=== PATIENT | male | born 1930 | race Caucasian/White ===

== ENCOUNTER 2017-04-18 08:54 | Outpatient (RCR) | payer MEDICARE, MEDICAID ==
[~2017-04-18 08:54] MED LIST: ACETAMINOPHEN325 M1 ORAL; AMBIEN10 MG ORAL; DILAUDID 11 MG/1 M1 IJ; DILAUDID 11 MG/1 M1 IV; DILAUDID 11 MG/1 M1 IVP; DILAUDID 11 MG/1 ML IV; DILAUDID 22 MG/1 M1 IV; DILAUDID1 MG/1 ML PO; DILAUDID2 MG IVP; DILAUDID2 MG ORAL; MAXITROL OPTH1 DROP LEFT EYE; MILK OF MA400 MG/51 ORAL; MIRALAX17 G2 ORAL; MIRTAZAPINE45 MG ORAL; OXYCONTIN20 MG ORAL; PROTONIX40 MG ORAL; RESTORIL30 MG ORAL; SYNTHROID100 MCG ORAL; SYNTHROID25 MCG ORAL; TYLENOL650 MG/20. ORAL; VANCOMYCIN1 GM/2502 IVPB; ZOFRAN 4 MG4 MG/2 ML IV
== END 2017-05-04 | disposition home or self-care (01) ==
LOC: WCC 08:54
DX: L98.492 Non-pressure chronic ulcer of skin of other sites with fat layer exposed (principal); L97.812 Non-pressure chronic ulcer of other part of right lower leg with fat layer exposed; L89.893 Pressure ulcer of other site, stage 3; Z89.512 Acquired absence of left leg below knee; Z89.511 Acquired absence of right leg below knee; M86.9 Osteomyelitis, unspecified
CPT/HCPCS: 11042

== ENCOUNTER 2017-05-03 10:00 | Inpatient (IN) | payer MEDICARE, MEDICAID ==
[~2017-05-03] VITALS: Ht 172.7 cm; Wt 74.8 kg
[2017-05-27 09:55] LABS: BASOPHILS % (AUTO) 1.3 % (0.0-2.0); EOSINOPHILS % (AUTO) 2.3 % (0.0-3.0); HEMATOCRIT 35.2 % (42.0-52.0); HEMOGLOBIN 11.8 G/DL (14.2-18.0); MEAN CORPUSCULAR VOLUME 94 FL (80-99); MONOCYTES % (AUTO) 6.7 % (1.0-10.0); NEUTROPHILS % (AUTO) 62.7 % (45.0-75.0); PLATELET COUNT 143 K/UL (150-450); RED BLOOD COUNT 3.74 M/UL (4.70-6.10); RED CELL DISTRIBUTION WIDTH 12.4 % (11.6-14.8); WHITE BLOOD COUNT 5.4 K/UL (4.8-10.8)
[2017-05-27 10:12] LABS: ALANINE AMINOTRANSFERASE 18 U/L (12-78); ALBUMIN 3.1 G/DL (3.4-5.0); ALBUMIN/GLOBULIN RATIO 0.7 (1.0-2.7); ALKALINE PHOSPHATASE 61 U/L (46-116); ANION GAP 6 mmol/L (5-15); ASPARTATE AMINO TRANSFERASE 22 U/L (15-37); BILIRUBIN,TOTAL 0.5 MG/DL (0.2-1.0); BLOOD UREA NITROGEN 16 mg/dL (7-18); CALCIUM 8.9 MG/DL (8.5-10.1); CARBON DIOXIDE 29 MMOL/L (21-32); CHLORIDE 104 MMOL/L (98-107); CREATININE 1.2 MG/DL (0.55-1.30); POTASSIUM 4.2 MMOL/L (3.5-5.1); SODIUM 139 MMOL/L (136-145)
--- NOTE | 2017-05-27 10:14 | Diagnostic Imaging Report ---
Indication: Cough Technique: 2 views of the chest Comparison: 06/18/2016 Findings: Is lungs and pleural spaces are clear. There is a right arm PICC in good position, tip projected at the level of the downstream superior vena cava. The heart size is normal. The aorta is tortuous and ectatic. Impression: No acute process
[2017-05-31] VITALS (10 sets, daily range): BP systolic 104–128; BP diastolic 58–77
[2017-05-31] MEDS ORDERED: Bacitracin 50000 Units Vial ONE (06:28)
[2017-05-31] MEDS ORDERED: Bupivacaine 0.5% Inj 30 ml vial INJ ONE (06:28)
[2017-05-31] MEDS ORDERED: NeoSporin Gu Irrig 1ml Amp IRRIG ONE (06:28)
--- NOTE | 2017-05-31 07:09 | Anethesia Preoperative Eval ---
Anesthesia Pre-op PMH/ROS General Date of Evaluation: May 31, 2017 Anesthesiologist: Sudheer ASA Score: ASA 2 Mallampati Score Class I : Soft palate, uvula, fauces, pillars visible Class II: Soft palate, uvula, fauces visible Class III: Soft palate, base of uvula visible Class IV: Only hard plate visible Mallampati Classification: Class II Surgeon: Gaston Diagnosis: Left stump Surgical Procedure: Left stump revision Anesthesia History: none Family History: no anesthesia problems Allergies: Coded Allergies: No Known Allergies (Unverified , 01/04/17) Medications: see eMAR Past Medical History Cardiovascular: Denies: HTN, CAD, [place], valve dz, arrhythmia, other Pulmonary: Denies: asthma, COPD, KEL, other Gastrointestinal/Genitourinary: Denies: GERD, CRI, ESRD, other Neurologic/Psychiatric: Denies: dementia, CVA, depression/anxiety, TIA, other Endocrine: Reports: hypothyroidism, Denies: DM, steroids, other HEENT: Denies: cataract (L), cataract (R), glaucoma, CABAZON (L), CABAZON (R), other Hematology/Immune: Reports: anemia - chroni, Denies: DVT, bleeding disorder, other Musculoskeletal/Integumentary: Reports: OA, Denies: RA, DJD, DDD, edema, other PSxH Narrative: Bilateral BKA's with multiple revisions Anesthesia Pre-op Phys. Exam Physician Exam see chart Constitutional: NAD, other - difuse bruising throughout Cardiovascular: RRR Respiratory: CTA Airway Exam Mallampati Score: Class II MO: full ROM: full Teeth: missing Anesthesia Pre-op A/P Labs see chart Studies Pre-op Studies: EKG - nsr Risk Assessment & Plan Assessment: ASA II Plan: GA Status Change Before Surgery: No Pre-Antibiotics Drug: Ancef 1g Given Within 1 Hr of Incision: Yes Time Given: 08:00 HAYDEN DAWSON M.D. May 31, 2017 07:09
--- NOTE | 2017-05-31 07:41 | Pre-Procedure Note/Attestation ---
Pre-Procedure Note/Attestation Complete Prior to Procedure Planned Procedure: right Procedure Narrative: revision amputation right leg Indications for Procedure Pre-Operative Diagnosis: right stump Attestation I attest that I discussed the nature of the procedure; its benefits; risks and complications; and alternatives (and the risks and benefits of such alternatives ), prior to the procedure, with the patient (or the patient's legal credit representative). I attest that, if there was a reasonable possibility of needing a blood transfusion, the patient (or the patient's legal credit representative) was given the [facility] standardized written summary, pursuant to the [place] Blood Safety Act ([place] Health and Safety Code # 1645, as amended). I attest that I re-evaluated the patient just prior to the surgery and that there has been no change in the patient's H&P, except as documented below: ASHVIN VASQUES May 31, 2017 07:41
[2017-05-31] MEDS ORDERED: NS Irrig 1000ml ONE (07:45)
[2017-05-31] MEDS ORDERED: Sterile Water Irrig 1000ml IRRIG ONE (07:45)
[2017-05-31] MEDS ORDERED: Midazolam 2mg/2ml Inj ONE (07:45)
[2017-05-31] MEDS ORDERED: Propofol 200mg/20ml IV ONE (07:45)
[2017-05-31] MEDS ORDERED: LR 1000ml ONE (07:45)
[2017-05-31] MEDS ORDERED: Lidocaine 1% MPF 10mg/ml 5ml ONE (07:45)
[2017-05-31] MEDS ORDERED: fentaNYL 100 mcg/2 mL IV ONE (07:45)
[2017-05-31] MEDS ORDERED: LR 1000ml 1,000 ML IVLG SCH (08:12)
[2017-05-31] MEDS ORDERED: Midazolam 2mg/2ml Inj IVP PRN (08:15)
[2017-05-31] MEDS ORDERED: DiphenhydrAMINE 50mg/ml Inj IVP PRN (08:15)
[2017-05-31] MEDS ORDERED: fentaNYL 100 mcg/2 mL IV PRN (08:15)
[2017-05-31] MEDS ORDERED: Hydromorphone 0.5mg/0.5ml inj IVP PRN (08:15)
--- NOTE | 2017-05-31 08:16 | Immediate Post-Op Evaluation ---
Immediate Post-Op Evalulation Immediate Post-Op Evalulation Procedure: Left stump revision Date of Evaluation: May 31, 2017 Time of Evaluation: 09:02 IV Fluids: 700 Blood Products: 0 Estimated Blood Loss: 25 Urinary Output: 0 Blood Pressure Systolic: 119 Blood Pressure Diastolic: 70 Pulse Rate: 87 Respiratory Rate: 16 O2 Sat by Pulse Oximetry: 100 Temperature (Fahrenheit): 98.1 Pain Score (1-10): 0 Nausea: No Vomiting: No Complications 0 Patient Status: awake, reacts, patent, none Hydration Status: adequate Drug: Ance 1g Given Within 1 Hr of Incision: Yes Time Given: 08:00 HAYDEN DAWSON M.D. May 31, 2017 08:16
--- NOTE | 2017-05-31 09:02 | 48 Hour Post Anesthesia Eval ---
Post Anesthesia Evaluation Procedure: Left stump revision Date of Evaluation: May 31, 2017 Time of Evaluation: 09:40 Blood Pressure Systolic: 104 0: 61 Pulse Rate: 72 Respiratory Rate: 20 Temperature (Fahrenheit): 98.3 O2 Sat by Pulse Oximetry: 100 Airway: patent Nausea: No Vomiting: No Pain Intensity: 0 Hydration Status: adequate Cardiopulmonary Status: at baseline Mental Status/LOC: patient returned to baseline Post-Anesthesia Complications: 0 Follow-up care needed: N/A - further care as per primary team HAYDEN DAWSON M.D. May 31, 2017 09:02
[2017-05-31] MEDS ORDERED: HYDROmorphone 2 MG in NS 55ml IVPB PRN (12:00)
[2017-05-31] MEDS: ceFAZolin sod 1 GM in NS 55 ML IV SCH ×2 (15:43→23:46)
--- NOTE | 2017-05-31 17:15 | General Progress Note ---
Assessment/Plan Assessment/Plan s/p stump revision hypothyroid chronic pain BKA PLAN 1. incentive spirometry 2. Lovenox 3. PT evaluation and therapy 4. Hydration 5. Pain management 6. discharge to rehab Subjective Allergies: Coded Allergies: No Known Allergies (Unverified , 01/04/17) Subjective post op no distress pain controlled Objective Last 24 Hour Vital Signs Date Time Temp Pulse Resp B/P (MAP) Pulse Ox O2 Delivery O2 Flow Rate FiO2 05/31/17 16:00 97.9 74 19 113/67 99 Nasal Cannula 3.0 97.9 05/31/17 12:00 97.4 79 20 119/69 99 Nasal Cannula 3.0 97.4 05/31/17 10:30 97.5 73 20 113/64 99 Nasal Cannula 3.0 97.5 05/31/17 10:27 208.9 72 20 100 05/31/17 09:40 98.3 72 20 104/61 100 Nasal Cannula 3.0 98.3 05/31/17 09:25 75 20 105/61 100 Nasal Cannula 3.0 05/31/17 09:07 80 20 109/59 100 Simple Mask 8.0 05/31/17 09:05 85 20 128/58 100 Simple Mask 8.0 05/31/17 09:01 208.6 87 16 100 05/31/17 08:57 98.1 90 20 116/73 100 Simple Mask 8.0 98.1 05/31/17 07:16 98.4 88 20 127/77 96 Room Air 98.4 Height (Feet): 5 Height (Inches): 8.00 Weight (Pounds): 165 Objective WDWN NAD clear breath sounds bilaterally without rhonchi or wheeze [id number] without MRG NABS nontender no HSM no CCE nonfocal stump dressed DINAH KHALIL May 31, 2017 17:15
[2017-05-31] MEDS: Heparin 5000 units/ml inj SUBQ SCH (20:50)
[2017-05-31] MEDS: Dyna-Hex 2% Top Sol 2oz TOPIC SCH (20:50)
[2017-06-01] VITALS: BP 99/56
[2017-06-01 04:00] VITALS: BP 100/62
--- NOTE | 2017-06-01 06:56 | General Progress Note ---
Assessment/Plan Assessment/Plan s/p stump revision hypothyroid chronic pain BKA PLAN 1. incentive spirometry 2. Lovenox 3. PT evaluation and therapy 4. Hydration as needed 5. Pain management controlled 6. discharge to rehab- will plan for am if patient agrees Subjective Allergies: Coded Allergies: No Known Allergies (Unverified , 01/04/17) Subjective post op no distress overnight pain controlled Objective Last 24 Hour Vital Signs Date Time Temp Pulse Resp B/P (MAP) Pulse Ox O2 Delivery O2 Flow Rate FiO2 06/01/17 04:44 97.6 06/01/17 04:14 97.6 06/01/17 04:00 98.2 79 18 100/62 95 Nasal Cannula 3.0 98.2 06/01/17 01:51 97.6 06/01/17 00:00 97.6 80 19 99/56 94 Nasal Cannula 3.0 97.6 05/31/17 23:05 97.9 05/31/17 20:49 97.9 05/31/17 20:00 98.1 18 123/74 96 98.1 05/31/17 16:00 97.9 74 19 113/67 99 Nasal Cannula 3.0 97.9 05/31/17 12:00 97.4 79 20 119/69 99 Nasal Cannula 3.0 97.4 05/31/17 10:30 97.5 73 20 113/64 99 Nasal Cannula 3.0 97.5 05/31/17 10:27 208.9 72 20 100 05/31/17 09:40 98.3 72 20 104/61 100 Nasal Cannula 3.0 98.3 05/31/17 09:25 75 20 105/61 100 Nasal Cannula 3.0 05/31/17 09:07 80 20 109/59 100 Simple Mask 8.0 05/31/17 09:05 85 20 128/58 100 Simple Mask 8.0 05/31/17 09:01 208.6 87 16 100 05/31/17 08:57 98.1 90 20 116/73 100 Simple Mask 8.0 98.1 05/31/17 07:16 98.4 88 20 127/77 96 Room Air 98.4 Intake and Output 05/31/17 06/01/17 19:00 07:00 Intake Total 1155 ml 240 ml Output Total 400 ml 475 ml Balance 755 ml -235 ml Intake Oral 300 ml 240 ml IV Total 855 ml Output Urine Total 375 ml 475 ml Estimated Blood Loss 25 ml Height (Feet): 5 Height (Inches): 8.00 Weight (Pounds): 165 Objective WDWN NAD clear breath sounds bilaterally without rhonchi or wheeze [id number] without MRG NABS nontender no HSM no CCE nonfocal stump dressed DINAH KHALIL Jun 01, 2017 06:56
[2017-06-01] MEDS: ceFAZolin sod 1 GM in NS 55 ML IV SCH (08:31)
--- NOTE | 2017-06-01 08:36 | General Progress Note ---
Assessment/Plan Assessment/Plan (1) B/L BKA (2) B/L stump pain (3) L stump revision (4) Phantom limb pain The patient will be continued on Dilaudid changed to 1.5mg IV Q3H PRN severe pain. We will discontinued the Dilaudid IVPB. The patient was discussed with Dr. Velasquez and Dr. Velasquez concurred. Thank you for the courtesy of this consultation. Subjective Date patient seen: Jun 01, 2017 Time patient seen: 07:15 - am Allergies: Coded Allergies: No Known Allergies (Unverified , 01/04/17) Subjective REVIEW OF SYSTEMS: Denies rash, fever, chills, sweating, dizziness, drowsiness, or change in weight. No shortness of breath or chest pain. No nausea, vomiting, or blood in the stool or urine. No bowel or bladder incontinence. No dysuria. He is complaining of bilateral lower extremity. SUBJECTIVE: Pt is a known patient from prior hospital admissions. He is s/p left stump revision. Started on Dilaudid 1mg IV and Dilaudid 2mg IVP. With minimal pain relief. We were consulted so patient would have adequate pain relief while here in the hospital. Objective Last 24 Hour Vital Signs Date Time Temp Pulse Resp B/P (MAP) Pulse Ox O2 Delivery O2 Flow Rate FiO2 06/01/17 07:27 97.6 06/01/17 06:57 97.6 06/01/17 04:14 97.6 06/01/17 04:00 98.2 79 18 100/62 95 Nasal Cannula 3.0 98.2 06/01/17 01:51 97.6 06/01/17 00:00 97.6 80 19 99/56 94 Nasal Cannula 3.0 97.6 05/31/17 23:05 97.9 05/31/17 20:49 97.9 05/31/17 20:00 98.1 18 123/74 96 98.1 05/31/17 16:00 97.9 74 19 113/67 99 Nasal Cannula 3.0 97.9 05/31/17 12:00 97.4 79 20 119/69 99 Nasal Cannula 3.0 97.4 05/31/17 10:30 97.5 73 20 113/64 99 Nasal Cannula 3.0 97.5 05/31/17 10:27 208.9 72 20 100 05/31/17 09:40 98.3 72 20 104/61 100 Nasal Cannula 3.0 98.3 05/31/17 09:25 75 20 105/61 100 Nasal Cannula 3.0 05/31/17 09:07 80 20 109/59 100 Simple Mask 8.0 05/31/17 09:05 85 20 128/58 100 Simple Mask 8.0 05/31/17 09:01 208.6 87 16 100 05/31/17 08:57 98.1 90 20 116/73 100 Simple Mask 8.0 98.1 Intake and Output 05/31/17 06/01/17 19:00 07:00 Intake Total 1155 ml 240 ml Output Total 400 ml 475 ml Balance 755 ml -235 ml Intake Oral 300 ml 240 ml IV Total 855 ml Output Urine Total 375 ml 475 ml Estimated Blood Loss 25 ml Height (Feet): 5 Height (Inches): 8.00 Weight (Pounds): 165 Objective GENERAL: Alert, awake, and oriented x3. HEENT: PERRLA. NECK: Range of motion is full in all directions. No tenderness. No adenopathy. LUNGS: Clear. HEART: Regular. ABDOMEN: Benign. BACK: Range of motion is full on flexion and extension with no tenderness to paraspinous and trapezius muscles. EXTREMITIES: Bilateral [id number] amputation noted. JAMAL SHAW Jun 01, 2017 08:35
[2017-06-01 08:57] VITALS: BP 107/58
[2017-06-01] MEDS: Heparin 5000 units/ml inj SUBQ SCH ×2 (08:57→21:00)
[2017-06-01 12:00] VITALS: BP 111/62
[2017-06-01 16:15] VITALS: BP 122/75
[2017-06-01 20:07] VITALS: BP 107/58
[2017-06-01] MEDS: Dyna-Hex 2% Top Sol 2oz TOPIC SCH (21:58)
[2017-06-02 00:13] VITALS: BP 105/61
[2017-06-02 04:46] VITALS: BP 120/63
--- NOTE | 2017-06-02 05:59 | General Progress Note ---
Assessment/Plan Assessment/Plan s/p stump revision hypothyroid chronic pain BKA PLAN 1. incentive spirometry 2. Lovenox 3. PT evaluation and therapy 4. Hydration as needed 5. Pain management controlled 6. discharge to rehab- today if bed available Subjective Allergies: Coded Allergies: No Known Allergies (Unverified , 01/04/17) Subjective post op no distress overnight pain controlled by pain management Objective Last 24 Hour Vital Signs Date Time Temp Pulse Resp B/P (MAP) Pulse Ox O2 Delivery O2 Flow Rate FiO2 06/02/17 04:46 98.9 80 19 120/63 94 98.9 06/02/17 04:02 98.7 06/02/17 03:32 98.7 06/02/17 00:13 98.7 85 18 105/61 95 98.7 06/01/17 20:07 98.9 82 20 107/58 95 98.9 06/01/17 16:15 98.2 83 18 122/75 98 Room Air 98.2 06/01/17 12:00 98.4 85 20 111/62 94 98.4 06/01/17 08:57 98.2 87 20 107/58 98 Room Air 98.2 06/01/17 07:27 97.6 06/01/17 06:57 97.6 Intake and Output 06/01/17 06/02/17 19:00 07:00 Intake Total 360 ml 360 ml Output Total 1125 ml Balance -765 ml 360 ml Intake Oral 360 ml 360 ml Output Urine Total 1125 ml # Voids 4 Height (Feet): 5 Height (Inches): 8.00 Weight (Pounds): 165 Objective WDWN NAD clear breath sounds bilaterally without rhonchi or wheeze [id number] without MRG NABS nontender no HSM no CCE nonfocal stump dressed DINAH KHALIL Jun 02, 2017 05:59
[2017-06-02 07:04] LABS: BASOPHILS % (AUTO) 0.9 % (0.0-2.0); EOSINOPHILS % (AUTO) 5.9 % (0.0-3.0); HEMATOCRIT 33.1 % (42.0-52.0); HEMOGLOBIN 11.5 G/DL (14.2-18.0); LYMPHOCYTES % (AUTO) 21.2 % (20.0-45.0); MEAN CORPUSCULAR VOLUME 94 FL (80-99); MONOCYTES % (AUTO) 8.7 % (1.0-10.0); NEUTROPHILS % (AUTO) 63.3 % (45.0-75.0); PLATELET COUNT 115 K/UL (150-450); RED BLOOD COUNT 3.54 M/UL (4.70-6.10); RED CELL DISTRIBUTION WIDTH 12.6 % (11.6-14.8); WHITE BLOOD COUNT 6.6 K/UL (4.8-10.8)
[2017-06-02 08:00] VITALS: BP 103/58
[2017-06-02 08:21] LABS: ANION GAP 8 mmol/L (5-15); BLOOD UREA NITROGEN 19 mg/dL (7-18); CALCIUM 8.7 MG/DL (8.5-10.1); CARBON DIOXIDE 27 MMOL/L (21-32); CHLORIDE 102 MMOL/L (98-107); CREATININE 1.1 MG/DL (0.55-1.30); POTASSIUM 4.3 MMOL/L (3.5-5.1); SODIUM 137 MMOL/L (136-145)
[2017-06-02] MEDS: Heparin 5000 units/ml inj SUBQ SCH ×2 (09:00→21:00)
[2017-06-02 12:00] VITALS: BP 115/64
[2017-06-02 16:00] VITALS: BP 109/73
[2017-06-02 20:00] VITALS: BP 108/61
[2017-06-02] MEDS: Dyna-Hex 2% Top Sol 2oz TOPIC SCH (21:38)
[2017-06-03 00:05] VITALS: BP 127/71
[2017-06-03 04:15] VITALS: BP 126/74
[2017-06-03 06:54] LABS: BASOPHILS % (AUTO) 0.9 % (0.0-2.0); HEMATOCRIT 32.5 % (42.0-52.0); LYMPHOCYTES % (AUTO) 30.6 % (20.0-45.0); MEAN CORPUSCULAR VOLUME 93 FL (80-99); MONOCYTES % (AUTO) 10.3 % (1.0-10.0); NEUTROPHILS % (AUTO) 50.2 % (45.0-75.0); PLATELET COUNT 107 K/UL (150-450); RED BLOOD COUNT 3.48 M/UL (4.70-6.10); RED CELL DISTRIBUTION WIDTH 12.2 % (11.6-14.8); WHITE BLOOD COUNT 5.1 K/UL (4.8-10.8)
[2017-06-03 07:33] LABS: ANION GAP 8 mmol/L (5-15); BLOOD UREA NITROGEN 21 mg/dL (7-18); CALCIUM 8.7 MG/DL (8.5-10.1); CARBON DIOXIDE 28 MMOL/L (21-32); CHLORIDE 102 MMOL/L (98-107); SODIUM 138 MMOL/L (136-145)
[2017-06-03 08:00] VITALS: BP 106/61
[2017-06-03] MEDS: Heparin 5000 units/ml inj SUBQ SCH (09:00)
--- NOTE | 2017-06-03 09:13 | General Progress Note ---
Assessment/Plan Assessment/Plan (1) B/L BKA (2) B/L stump pain (3) L stump revision (4) Phantom limb pain The patient will be continued on Dilaudid. The patient was discussed with Dr. Velasquez and Dr. Velasquez concurred. Subjective Date patient seen: Jun 03, 2017 Time patient seen: 08:00 - am Allergies: Coded Allergies: No Known Allergies (Unverified , 01/04/17) Subjective REVIEW OF SYSTEMS: Denies rash, fever, chills, sweating, dizziness, drowsiness, or change in weight. No shortness of breath or chest pain. No nausea, vomiting, or blood in the stool or urine. No bowel or bladder incontinence. No dysuria. He is complaining of bilateral lower extremity. SUBJECTIVE: Pt has been comfortable and is tolerating the pain well on the Dilaudid. He has no new complaints. Objective Last 24 Hour Vital Signs Date Time Temp Pulse Resp B/P (MAP) Pulse Ox O2 Delivery O2 Flow Rate FiO2 06/03/17 08:00 98.5 73 20 106/61 93 98.5 06/03/17 04:15 96.4 74 19 126/74 95 96.4 06/03/17 00:05 97.6 79 19 127/71 97.6 06/02/17 20:00 97.9 79 18 108/61 97.9 06/02/17 16:00 97.7 81 19 109/73 94 97.7 06/02/17 16:00 Room Air 06/02/17 12:00 Room Air 06/02/17 12:00 97.9 84 18 115/64 99 97.9 Intake and Output 06/02/17 06/03/17 19:00 07:00 Intake Total 480 ml 48 ml Balance 480 ml 48 ml Intake Oral 480 ml 48 ml # Voids 2 2 Laboratory Tests 06/03/17 05:12: White Blood Count 5.1, Red Blood Count 3.48L, Hemoglobin 11.0L, Hematocrit 32.5L , Mean Corpuscular Volume 93, Mean Corpuscular Hemoglobin 31.5H, Mean Corpuscular Hemoglobin Concent 33.8, Red Cell Distribution Width 12.2, Platelet Count 107L, Mean Platelet Volume 8.0, Neutrophils (%) (Auto) 50.2, Lymphocytes ( %) (Auto) 30.6, Monocytes (%) (Auto) 10.3H, Eosinophils (%) (Auto) 8.0H, Basophils (%) (Auto) 0.9, Sodium Level 138, Potassium Level 4.0, Chloride Level 102, Carbon Dioxide Level 28, Anion Gap 8, Blood Urea Nitrogen 21H, Creatinine 1.0, Estimat Glomerular Filtration Rate , Glucose Level 85, Calcium Level 8.7 Height (Feet): 5 Height (Inches): 8.00 Weight (Pounds): 165 Objective GENERAL: Alert, awake, and oriented x3. HEENT: PERRLA. NECK: Range of motion is full in all directions. No tenderness. No adenopathy. LUNGS: Clear. HEART: Regular. ABDOMEN: Benign. BACK: Range of motion is full on flexion and extension with no tenderness to paraspinous and trapezius muscles. EXTREMITIES: Bilateral [id number] amputation noted. JAMAL SHAW Jun 03, 2017 09:13
[2017-06-03 12:00] VITALS: BP 119/72
--- NOTE | 2017-06-03 12:38 | General Progress Note ---
Assessment/Plan Assessment/Plan s/p stump revision hypothyroid chronic pain BKA PLAN 1. incentive spirometry 2. DVT prophylaxis 3. PT evaluation and therapy 4. Hydration as needed 5. Pain management controlled 6. discharge to rehab- today Subjective Allergies: Coded Allergies: No Known Allergies (Unverified , 01/04/17) Subjective accepted to rehab no distress overnight and stable for dc pain controlled by pain management Objective Last 24 Hour Vital Signs Date Time Temp Pulse Resp B/P (MAP) Pulse Ox O2 Delivery O2 Flow Rate FiO2 06/03/17 08:00 98.5 73 20 106/61 93 98.5 06/03/17 04:15 96.4 74 19 126/74 95 96.4 06/03/17 00:05 97.6 79 19 127/71 97.6 06/02/17 20:00 97.9 79 18 108/61 97.9 06/02/17 16:00 97.7 81 19 109/73 94 97.7 06/02/17 16:00 Room Air Intake and Output 06/02/17 06/03/17 19:00 07:00 Intake Total 480 ml 48 ml Balance 480 ml 48 ml Intake Oral 480 ml 48 ml # Voids 2 2 Laboratory Tests 06/03/17 05:12: White Blood Count 5.1, Red Blood Count 3.48L, Hemoglobin 11.0L, Hematocrit 32.5L , Mean Corpuscular Volume 93, Mean Corpuscular Hemoglobin 31.5H, Mean Corpuscular Hemoglobin Concent 33.8, Red Cell Distribution Width 12.2, Platelet Count 107L, Mean Platelet Volume 8.0, Neutrophils (%) (Auto) 50.2, Lymphocytes ( %) (Auto) 30.6, Monocytes (%) (Auto) 10.3H, Eosinophils (%) (Auto) 8.0H, Basophils (%) (Auto) 0.9, Sodium Level 138, Potassium Level 4.0, Chloride Level 102, Carbon Dioxide Level 28, Anion Gap 8, Blood Urea Nitrogen 21H, Creatinine 1.0, Estimat Glomerular Filtration Rate , Glucose Level 85, Calcium Level 8.7 Height (Feet): 5 Height (Inches): 8.00 Weight (Pounds): 165 Objective WDWN NAD clear breath sounds bilaterally without rhonchi or wheeze [id number] without MRG NABS nontender no HSM no CCE nonfocal stump dressed DINAH KHALIL Jun 03, 2017 12:38
[2017-06-03] MEDS ORDERED: HEPARIN SO5000 UNIT2 SUBQ (12:42)
[2017-06-03] MEDS ORDERED: HYDROMORPHO2 MG/1 M5 IVP (12:42)
[2017-06-03] MEDS ORDERED: HIBICLENS118 ML TP (12:43)
[2017-06-03 16:00] VITALS: BP 106/58
[2017-06-03] MEDS ORDERED: Tubing IV Secondary IV ONE (19:05)
[2017-06-03] MEDS ORDERED: NS 275ml ONE (19:05)
--- NOTE | 2017-06-06 12:32 | Discharge Summary ---
Discharge Summary Hospital Course Date of Admission May 31, 2017 at 05:48 Date of Discharge Jun 03, 2017 at 19:06 Admitting Diagnosis bilateral stump pain, Reason for Hospitalization: admitted for elective surgery HPI Eusebio Cheung is a 87 year old male, with bilateral BKA and bilateral stump pain, was admitted on May 31, 2017 at 05:48 for Left Stump revision Consultations dr Gallegos- IM dr Velasquez -pain specialist Procedures s/p 05/31/[address] Feldman. revision of left stump Hospital Course s/p surgery pain management pain specialist followed dressing intact IS at the Bedside, taught and encouraged to use DVT prophayxlis initially IV hydration until able to tolerate diet, a/emetic prn bowel regimen PT/OT Levothyroxine continued tolerated diet, pain controlled, stable for dc to acute rehab hospital FINAL DIAGNOSIS bilateral BKA bilateral stump lester s/p left stump revision hypothyroidism Discharge Medications Continued Medications: Chlorhexidine Gluconate* (Hibiclens*) 118 Ml Liquid 118 ML TP DAILY, ML Heparin Sod (Porcine) (Heparin Sodium*) 5 000/1 Ml Vial 5000 UNITS SUBQ EVERY 12 HOURS, VIAL Hydromorphone Hcl/Pf (Hydromorphone 2 Mg/Ml Syringe*) 2 Mg/1 Ml Disp.syrin 1.5 MG IVP Q3HR PRN for Severe Pain (Pain Scale 7-10), EA 0 Refills Levothyroxine Sodium* (Synthroid*) 100 Mcg Tablet 100 MCG ORAL DAILY, TAB Take in the morning on an empty stomach, at least 30 minutes before food. Mirtazapine* (Remeron*) 45 Mg Tablet 45 MG ORAL BEDTIME, TAB Temazepam (Restoril*) 30 Mg Capsule 30 MG ORAL BEDTIME, CAP 0 Refills Discharge Condition Upon Discharge: stable Discharge Disposition Patient was discharged to [facility] Discharge Diagnoses: Discharge Instructions Discharge Instructions Special Instructions I have been assigned to complete a D/C Summary on this account. I was not involved in the patient management Dinah Alvarez NP ([place]anchtein) Jun 06, 2017 12:32
--- NOTE | 2017-06-09 12:30 | Operative Note - Dictated ---
DATE OF OPERATION: 06/01/2017 PREOPERATIVE DIAGNOSIS: Painful left stump secondary to failed surgeries. POSTOPERATIVE DIAGNOSIS: Painful left stump secondary to failed surgeries from Dr. Roldan. PROCEDURE: Revision of left stump amputation with re-amputation. SURGEON: Enrique Feldman M.D. HAND PACKER/PACKAGER: Unknown. 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 PREOPERATIVE NOTE: This is a pleasant gentleman, who has had multiple operations recently by Dr. Roldan, who has failed walking on his stump. I have explained to him the surgery and the risks being failure of the surgery. The patient agreed and consents were obtained. I also explained to him the risks of being infection, bleeding, anesthetic risk, and nerve or tendon damage. OPERATIVE NOTE: Under the benefit of endotracheal intubation and general anesthetic, the patient's knee was prepped and draped in the appropriate manner. An incision was made overlying the same incision and incised through subcutaneous tissue down through soft tissue. I then took a saw and cleaned up the bone flaps taking the off the bone using a rasp to make it nice and smooth. I then did various soft tissue coverage only removing approximately less than 1 cm of bone. I was covering the bone nicely. I was very pleased. I closed the skin only with 2-0 Vicryl and the skin with barbara. The patient went to the recovery room in stable condition. Enrique Feldman M.D. DR: URI JOB#: [id number] CC:
== END 2017-06-03 19:06 | disposition short-term general hospital (02) | DRG 42 ==
LOC: SDSOVERFLO 05-31 05:48 → 3E 05-31 10:15 → 4W 06-01 11:30
PROC: 0Y6G0ZZ Detachment at Left Knee Region, Open Approach (ICD-10-PCS; principal; 2017-05-31 07:30)
DX: G54.6 Phantom limb syndrome with pain (principal); T87.89 Other complications of amputation stump; M25.562 Pain in left knee; E03.9 Hypothyroidism, unspecified; Z89.512 Acquired absence of left leg below knee; Z89.511 Acquired absence of right leg below knee; G89.29 Other chronic pain
CPT/HCPCS: 36415; 71046; 80048; 80053; 85025; 85610; 85730; 87081; 94003; 94150; J2250

== ENCOUNTER 2017-05-16 09:01 | Outpatient (RCR) | payer MEDICARE, MEDICAID ==
[~2017-05-16] VITALS: Ht 167.6 cm; Wt 74.8 kg
== END 2017-06-01 | disposition home or self-care (01) ==
LOC: WCC 09:01
DX: L89.893 Pressure ulcer of other site, stage 3 (principal); S41.102S Unspecified open wound of left upper arm, sequela; L98.492 Non-pressure chronic ulcer of skin of other sites with fat layer exposed; L97.812 Non-pressure chronic ulcer of other part of right lower leg with fat layer exposed; Z89.511 Acquired absence of right leg below knee; Z89.512 Acquired absence of left leg below knee; X58.XXXS Exposure to other specified factors, sequela
CPT/HCPCS: 11042; G0463

== ENCOUNTER 2017-05-24 10:04 | Outpatient (CLI) | payer MEDICARE, MEDICAID ==
[~2017-05-24] VITALS: Ht 165.1 cm; Wt 74.8 kg
[2017-05-24] MEDS ORDERED: Lidocaine 1% Plain 30 ml INJ ONE (11:00)
[2017-05-24] MEDS ORDERED: Heparin 2000 units/Ns 1000ml IV ONE (11:00)
--- NOTE | 2017-05-24 11:59 | Diagnostic Imaging Report ---
Indications: Needs long-term IV access Technique: Ultrasound confirms patent compressible right basilic vein. Total sterile technique, including sterile probe cover and sterile gel, hat, mask,, sterile gown, large sterile drape, and preparation with 2% chlorhexidine utilized. Local anesthesia with 1% lidocaine. Under real-time ultrasound guidance, puncture basilic vein using 21-gauge needle, documented and archived, passage 0.018 guidewire under direct fluoroscopy,, requiring some manipulation with [facility], which was used to determine appropriate catheter length, exchange for 5 Czech peel-away sheath. 5 Czech Bard dual-lumen power PICC cut to 40 cm. It was inserted through the peel-away sheath. Peel-away sheath and guidewire removed. Catheter fixed to the skin. Both catheter ports aspirated and flushed. Patient tolerated procedure well, without immediate complication. Digital radiograph documents satisfactory catheter tip position, at the cavoatrial junction. Total fluoroscopy time 1.7 minutes. Total dose area product 63 dGycm2 Impression: Successful placement of right arm PICC under sonographic and fluoroscopic guidance, as described above.
== END 2017-05-24 12:04 | disposition home or self-care (01) ==
LOC: RAD 10:04
DX: Z79.899 Other long term (current) drug therapy (principal)
CPT/HCPCS: 36569; 76937; J1644; J2001

== ENCOUNTER 2017-11-16 13:30 | Inpatient (IN) | payer MEDICARE, MEDICAID ==
[~2017-11-16] VITALS: Ht 167.6 cm; Wt 74.8 kg
[~2017-11-16 13:30] MED LIST changes: +HEPARIN SO5000 UNIT2 SUBQ; +HIBICLENS118 ML TP; +HYDROMORPHO2 MG/1 M5 IVP
[2017-12-20 12:07] LABS: BASOPHILS % (AUTO) 1.2 % (0.0-2.0); EOSINOPHILS % (AUTO) 2.5 % (0.0-3.0); HEMATOCRIT 36.8 % (42.0-52.0); HEMOGLOBIN 12.3 G/DL (14.2-18.0); LYMPHOCYTES % (AUTO) 33.4 % (20.0-45.0); MEAN CORPUSCULAR VOLUME 91 FL (80-99); MONOCYTES % (AUTO) 9.3 % (1.0-10.0); NEUTROPHILS % (AUTO) 53.6 % (45.0-75.0); PLATELET COUNT 139 K/UL (150-450); RED BLOOD COUNT 4.04 M/UL (4.70-6.10); RED CELL DISTRIBUTION WIDTH 12.1 % (11.6-14.8); WHITE BLOOD COUNT 5.4 K/UL (4.8-10.8)
[2017-12-20 12:13] LABS: ANION GAP 9 mmol/L (5-15); BLOOD UREA NITROGEN 21 mg/dL (7-18); CALCIUM 9.1 MG/DL (8.5-10.1); CARBON DIOXIDE 26 MMOL/L (21-32); CHLORIDE 105 MMOL/L (98-107); CREATININE 1.2 MG/DL (0.55-1.30); POTASSIUM 4.2 MMOL/L (3.5-5.1); SODIUM 139 MMOL/L (136-145)
[2017-12-20 12:17] LABS: ALANINE AMINOTRANSFERASE 23 U/L (12-78); ALBUMIN 3.1 G/DL (3.4-5.0); ALBUMIN/GLOBULIN RATIO 0.7 (1.0-2.7); ALKALINE PHOSPHATASE 67 U/L (46-116); ASPARTATE AMINO TRANSFERASE 27 U/L (15-37); BILIRUBIN,TOTAL 0.6 MG/DL (0.2-1.0)
[2017-12-21] VITALS (12 sets, daily range): BP systolic 103–132; BP diastolic 51–78
[2017-12-21 06:52] LABS: APPEARANCE,URINE CLEAR; BILIRUBIN, URINE NEGATIVE (NEGATIVE); GLUCOSE, URINE (UA) NEGATIVE (NEGATIVE); KETONES,URINE 1+ (NEGATIVE); LEUKOCYTE ESTERASE ,URINE 3+ (NEGATIVE); NITRITE,URINE NEGATIVE (NEGATIVE); PH,URINE 5 (4.5-8.0); PROTEIN,URINE 2+ (NEGATIVE); UROBILINOGEN,URINE NORMAL MG/DL (0.0-1.0)
[2017-12-21] MEDS ORDERED: Midazolam 2mg/2ml Inj ONE (07:04)
[2017-12-21] MEDS ORDERED: fentaNYL 100 mcg/2 mL IV ONE (07:04)
[2017-12-21] MEDS ORDERED: Bacitracin 50000 Units Vial ONE (07:05)
[2017-12-21] MEDS ORDERED: Bupivacaine 0.5% Inj 30 ml vial INJ ONE (07:05)
[2017-12-21] MEDS ORDERED: NeoSporin Gu Irrig 1ml Amp IRRIG ONE (07:05)
[2017-12-21] MEDS ORDERED: Lidocaine 1% MPF 10mg/ml 5ml ONE (07:07)
[2017-12-21] MEDS ORDERED: Propofol 200mg/20ml IV ONE (07:07)
[2017-12-21 07:12] LABS: COLOR,URINE YELLOW
[2017-12-21] MEDS ORDERED: LR 1000ml 1,000 ML IVLG SCH (07:53)
--- NOTE | 2017-12-21 07:53 | Anethesia Preoperative Eval ---
Anesthesia Pre-op PMH/ROS General Date of Evaluation: Dec 21, 2017 Time of Evaluation: 07:15 Anesthesiologist: Kandy ASA Score: ASA 2 Mallampati Score Class I : Soft palate, uvula, fauces, pillars visible Class II: Soft palate, uvula, fauces visible Class III: Soft palate, base of uvula visible Class IV: Only hard plate visible Mallampati Classification: Class II Surgeon: Gaston Diagnosis: R leg pain Surgical Procedure: Revision of R BKA stump Anesthesia History: none Family History: no anesthesia problems Allergies: Coded Allergies: No Known Allergies (Unverified , 01/04/17) Medications: see eMAR Past Medical History Cardiovascular: Denies: HTN, CAD, NH, valve dz, arrhythmia, other Pulmonary: Denies: asthma, COPD, KEL, other Gastrointestinal/Genitourinary: Reports: GERD - mild; Denies: CRI, ESRD, other Neurologic/Psychiatric: Reports: other - chronic pain; Denies: dementia, CVA, depression/anxiety, TIA Endocrine: Reports: hypothyroidism; Denies: DM, steroids, other HEENT: Reports: other - bilateral eyelids scars; Denies: cataract (L), cataract (R), glaucoma, NIKOLAI (L), NIKOLAI (R) Hematology/Immune: Reports: anemia - mild; Denies: DVT, bleeding disorder, other Musculoskeletal/Integumentary: Reports: DJD, other - s/p bilateral BKA PMH Narrative: as above PSxH Narrative: Bilateral BKA and revisions Anesthesia Pre-op Phys. Exam Physician Exam Last Vital Signs Date Time Temp Pulse Resp B/P (MAP) Pulse Ox O2 Delivery O2 Flow Rate FiO2 12/21/17 07:01 Room Air 12/21/17 06:49 98.6 91 18 132/77 (95) 96 98.6 Constitutional: NAD Neurologic: CN 2-12 intact Cardiovascular: RRR Respiratory: CTA Gastrointestinal: S/NT/ND Airway Exam Mallampati Score: Class III MO: limited Neck: stiff ROM: limited Teeth: missing Dentures: no upper, no lower Anesthesia Pre-op A/P Labs Hematology Test 12/20/17 11:40 White Blood Count 5.4 K/UL (4.8-10.8) Red Blood Count 4.04 M/UL (4.70-6.10) L Hemoglobin 12.3 G/DL (14.2-18.0) L Hematocrit 36.8 % (42.0-52.0) L Mean Corpuscular Volume 91 FL (80-99) Mean Corpuscular Hemoglobin 30.3 PG (27.0-31.0) Mean Corpuscular Hemoglobin Concent 33.3 G/DL (32.0-36.0) Red Cell Distribution Width 12.1 % (11.6-14.8) Platelet Count 139 K/UL (150-450) L Mean Platelet Volume 8.0 FL (6.5-10.1) Neutrophils (%) (Auto) 53.6 % (45.0-75.0) Lymphocytes (%) (Auto) 33.4 % (20.0-45.0) Monocytes (%) (Auto) 9.3 % (1.0-10.0) Eosinophils (%) (Auto) 2.5 % (0.0-3.0) Basophils (%) (Auto) 1.2 % (0.0-2.0) Coagulation Test 12/20/17 11:40 Prothrombin Time 10.7 SEC (9.30-11.50) Prothromb Time International Ratio 1.0 (0.9-1.1) Activated Partial Thromboplast Time 26 SEC (23-33) Chemistry Test 12/20/17 11:40 Sodium Level 139 MMOL/L (136-145) Potassium Level 4.2 MMOL/L (3.5-5.1) Chloride Level 105 MMOL/L (98-107) Carbon Dioxide Level 26 MMOL/L (21-32) Anion Gap 9 mmol/L (5-15) Blood Urea Nitrogen 21 mg/dL (7-18) H Creatinine 1.2 MG/DL (0.55-1.30) Estimat Glomerular Filtration Rate mL/min (>60) Glucose Level 109 MG/DL (74-106) H Calcium Level 9.1 MG/DL (8.5-10.1) Total Bilirubin 0.6 MG/DL (0.2-1.0) Aspartate Amino Transf (AST/SGOT) 27 U/L (15-37) Alanine Aminotransferase (ALT/SGPT) 23 U/L (12-78) Alkaline Phosphatase 67 U/L (46-116) Total Protein 7.6 G/DL (6.4-8.2) Albumin 3.1 G/DL (3.4-5.0) L Globulin 4.5 g/dL Albumin/Globulin Ratio 0.7 (1.0-2.7) L Studies Pre-op Studies: EKG - SR Risk Assessment & Plan Assessment: ASA 2 Plan: GA with LMA Status Change Before Surgery: No Pre-Antibiotics Drug: Ancef 1gr. Given Within 1 Hr of Incision: Yes Time Given: 08:02 Morteza Gaitan MD Dec 21, 2017 07:53
--- NOTE | 2017-12-21 07:59 | Pre-Procedure Note/Attestation ---
Pre-Procedure Note/Attestation Complete Prior to Procedure Planned Procedure: right Procedure Narrative: revision amputation of right stump Attestation I attest that I discussed the nature of the procedure; its benefits; risks and complications; and alternatives (and the risks and benefits of such alternatives ), prior to the procedure, with the patient (or the patient's legal dairy supplies sales representative). I attest that, if there was a reasonable possibility of needing a blood transfusion, the patient (or the patient's legal dairy supplies sales representative) was given the [facility] Health Services standardized written summary, pursuant to the Nghia Dominga Blood Safety Act ([place] Health and Safety Code # 1645, as amended). I attest that I re-evaluated the patient just prior to the surgery and that there has been no change in the patient's H&P, except as documented below: Enrique Feldman MD Dec 21, 2017 07:59
[2017-12-21] MEDS ORDERED: fentaNYL 100 mcg/2 mL IV PRN (08:00)
[2017-12-21] MEDS ORDERED: LR 1000ml ONE (08:00)
[2017-12-21] MEDS ORDERED: NS Irrig 1000ml ONE (08:00)
[2017-12-21] MEDS ORDERED: DiphenhydrAMINE 50mg/ml Inj IVP PRN (08:00)
[2017-12-21] MEDS ORDERED: Sterile Water Irrig 1000ml IRRIG ONE (08:00)
--- NOTE | 2017-12-21 09:11 | Immediate Post-Op Evaluation ---
Immediate Post-Op Evalulation Immediate Post-Op Evalulation Procedure: Revision of R RAQUEL stamp Date of Evaluation: Dec 21, 2017 Time of Evaluation: 09:10 IV Fluids: 600 Blood Products: none Estimated Blood Loss: min Urinary Output: none Blood Pressure Systolic: 128 Blood Pressure Diastolic: 78 Pulse Rate: 89 Respiratory Rate: 20 O2 Sat by Pulse Oximetry: 98 Temperature (Fahrenheit): 98.2 Pain Score (1-10): 1 Nausea: No Vomiting: No Complications none Patient Status: reacts, patent, none Hydration Status: adequate Morteza Gaitan MD Dec 21, 2017 09:11
[2017-12-21] MEDS ORDERED: PCA HYDROmorphone 30mg/30ml Syr IV PRN (10:45)
[2017-12-21] MEDS ORDERED: PCA Education Pamphlet MISC ONE (10:45)
[2017-12-21] MEDS ORDERED: HYDROmorphone 2mg tab ORAL PRN ×2 (10:45→14:00)
[2017-12-21] MEDS ORDERED: Rate Change PCA 1 Each MISC PRN ×2 (10:45→13:45)
[2017-12-21] MEDS ORDERED: HYDROmorphone 1mg/ml Carpuject IVP PRN ×2 (10:45→14:00)
[2017-12-21] MEDS: D5 1/2NS 1,000 ML IV SCH (11:37)
--- NOTE | 2017-12-21 11:50 | General Progress Note ---
Assessment/Plan Problem List: (1) Leg pain ICD Codes: M79.606 - Leg pain SNOMED: 24373176 (2) Hypothyroid ICD Codes: E03.9 - Hypothyroid SNOMED: 79083245 (3) Postoperative wound closure planning ICD Codes: Z48.1 - Encounter for planned postprocedural wound closure SNOMED: 759259835 (4) Stump injury ICD Codes: T14.8 - Other injury of unspecified body region SNOMED: 932113110 Status: stable Assessment/Plan pain rx resume home meds Subjective ROS Limited/Unobtainable: No Constitutional: Reports: malaise, weakness HEENT: Reports: no symptoms Cardiovascular: Reports: no symptoms Respiratory: Reports: no symptoms Gastrointestinal/Abdominal: Reports: no symptoms Genitourinary: Reports: no symptoms Neurologic/Psychiatric: Reports: no symptoms Endocrine: Reports: no symptoms Hematologic/Lymphatic: Reports: no symptoms Allergies: Coded Allergies: No Known Allergies (Unverified , 01/04/17) All Systems: reviewed and negative except above Subjective s/p revision of right bka. tolerated well. c/o pain Objective Last 24 Hour Vital Signs Date Time Temp Pulse Resp B/P (MAP) Pulse Ox O2 Delivery O2 Flow Rate FiO2 12/21/17 10:00 98.5 12/21/17 09:57 98.5 83 20 108/56 96 Nasal Cannula 3 98.5 12/21/17 09:45 82 15 109/56 99 Nasal Cannula 3 12/21/17 09:30 87 16 117/65 99 Nasal Cannula 3 12/21/17 09:30 98.3 12/21/17 09:20 88 16 118/63 98 Simple Mask 6 12/21/17 09:11 208.8 89 20 98 12/21/17 09:10 86 17 113/65 97 Simple Mask 6 12/21/17 09:05 85 23 129/74 97 Simple Mask 6 12/21/17 09:01 98.3 89 20 128/78 98 Simple Mask 6 98.3 12/21/17 07:01 Room Air 12/21/17 06:49 98.6 91 18 132/77 (95) 96 98.6 Laboratory Tests 12/20/17 11:40: White Blood Count 5.4, Red Blood Count 4.04L, Hemoglobin 12.3L, Hematocrit 36.8L , Mean Corpuscular Volume 91, Mean Corpuscular Hemoglobin 30.3, Mean Corpuscular Hemoglobin Concent 33.3, Red Cell Distribution Width 12.1, Platelet Count 139L, Mean Platelet Volume 8.0, Neutrophils (%) (Auto) 53.6, Lymphocytes ( %) (Auto) 33.4, Monocytes (%) (Auto) 9.3, Eosinophils (%) (Auto) 2.5, Basophils (%) (Auto) 1.2, Prothrombin Time 10.7, Prothromb Time International Ratio 1.0, Activated Partial Thromboplast Time 26, Sodium Level 139, Potassium Level 4.2, Chloride Level 105, Carbon Dioxide Level 26, Anion Gap 9, Blood Urea Nitrogen 21H, Creatinine 1.2, Estimat Glomerular Filtration Rate , Glucose Level 109H, Calcium Level 9.1, Total Bilirubin 0.6, Aspartate Amino Transf (AST/SGOT) 27, Alanine Aminotransferase (ALT/SGPT) 23, Alkaline Phosphatase 67, Total Protein 7.6, Albumin 3.1L, Globulin 4.5, Albumin/Globulin Ratio 0.7L 12/21/17 06:30: Urine Color Yellow, Urine Appearance Clear, Urine pH 5, Urine Specific [place] 1.020, Urine Protein 2+H, Urine Glucose (UA) Negative, Urine Ketones 1+H, Urine Blood 1+H, Urine Nitrite Negative, Urine Bilirubin Negative, Urine Urobilinogen Normal, Urine Leukocyte Esterase 3+H, Urine RBC 0-2H, Urine WBC 10-15H, Urine Squamous Epithelial Cells Few, Urine Bacteria Occasional Height (Feet): 5 Height (Inches): 6.00 Weight (Pounds): 165 General Appearance: WD/WN Neck: supple Cardiovascular: normal rate Respiratory/Chest: chest wall non-tender, lungs clear, normal breath sounds, no respiratory distress Abdomen: normal bowel sounds, non tender, soft Objective right stump dressed in Tim Stiles MD Dec 21, 2017 11:50
[2017-12-21] MEDS ORDERED: Milk of Magnesia 30ml Ud ORAL PRN (12:00)
[2017-12-21] MEDS ORDERED: PCA HYDROmorphone 1mg/ml 30 ML IV PRN (14:00)
[2017-12-21] MEDS ORDERED: Naloxone 0.4mg/ml Inj IV PRN (14:30)
[2017-12-21] MEDS: ceFAZolin sod 1 GM in D5W 55 ML IV SCH ×2 (15:57→22:52)
--- NOTE | 2017-12-21 17:30 | Consultation ---
DATE OF CONSULTATION: 12/21/2017 CONSULTING PHYSICIAN: Emeka Lan M.D. REFERRING PHYSICIAN: Enrique Feldman M.D. REASON FOR CONSULTATION: Acute pain consult. HISTORY OF PRESENT ILLNESS: Thank you kindly for consulting me to evaluate and render an opinion as to how to proceed in the management of the patient's acute postoperative right leg pain after revision right below-knee amputation stump revision. I saw the patient at the bedside. I performed a detailed history and physical examination. I reviewed the medical record in detail including advance directives. PAST MEDICAL HISTORY: 1. Acute postoperative right leg pain status post revision stump amputation surgery of the right leg by Dr. Feldman in December 2017. 2. Opioid dependence. 3. Insomnia. 4. Extreme age. 5. Hypothyroidism. PAST SURGICAL HISTORY: Bilateral knee amputations and skin cancer removals. MEDICATIONS AT HOME: Dilaudid liquid 2 mg, Synthroid, acetaminophen, Remeron 45 mg at bedtime, and Restoril 30 mg p.r.n. at bedtime. The patient also admits to using varying doses of oxycodone and OxyContin periodically. ALLERGIES: No known drug allergies. SOCIAL HISTORY: The patient lives in apartment alone. He is a [employer] after many decades of service. REVIEW OF SYSTEMS: Per Dr. Sawyer Gallegos. PHYSICAL EXAMINATION: VITAL SIGNS: Age 87, height 5 feet 7 inches, weight 170 pounds. Afebrile, pulse 83, respirations 20, blood pressure 108/56, and oxygen saturation 93% on supplemental oxygen. HEENT: Poor dentition. Multiple facial skin masses, consistent with his history of facial skin cancers. Of note, the patient is following up with an outpatient art coordinator. CARDIOVASCULAR: Detailed cardiopulmonary exam per Dr. Gallegos. EXTREMITIES: Stump dressing appears clean and dry with pain to palpation. NEUROLOGIC: The patient is alert ordered x3. LABORATORY DATA: Diagnostic testing from 12/20/2017 shows sodium 139, potassium 4.2, chloride 105, bicarb 26, BUN 21, creatinine 1.2, glucose 109, and calcium 9.1. Total bilirubin 0.6. AST 27 and AST 23. Total protein 7.3. Albumin 3.1. Alkaline phosphatase 67. INR 1.0. PTT 26. White count 6, hematocrit 37, and platelets 139,000. A 12-lead EKG shows PVCs and PACs. Heart rate 92. Preoperative chest x-ray shows no acute cardiopulmonary disease dated 12/15/2017. IMPRESSION: 1. Acute postoperative right leg pain status post revision stump amputation surgery of the right leg by Dr. Feldman in December 2017. 2. Opioid dependence. 3. Insomnia. 4. Extreme age. 5. Hypothyroidism. TREATMENT RECOMMENDATIONS: I spoke with the hospital pharmacist, Jina along with PACU nurse, RN, Slick. I started Dilaudid TRAUMA PROGRAM MANAGER. This patient has been using Dilaudid. Despite his age of 87, he has been using Dilaudid at home chronically along with intermittent doses of oxycodone and OxyContin. He also uses high dose Restoril 30 mg. The patient certainly seems to have a considerable tolerance for potent narcotic agents. I have provided a simplified analgesic plan. I will start with Dilaudid TRAUMA PROGRAM MANAGER with 0.3 mg demand dose at 12-minute lockout and a 6 mg 4-hour limit. Additionally, I have made available several p.r.n. pain medications including intravenous Dilaudid 1 mg q.3 hours p.r.n. for severe pain. I have ordered 2 mg oral Dilaudid q.3 hours p.r.n. for [id number] pain. I have ordered Mylanta 30 mL q.6 hours in case of any GERD symptom exacerbation. I have placed the patient on Pepcid 20 mg b.i.d. for GI ulcer prophylaxis. I have also added p.r.n. dose of Benadryl 25 mg orally every 6 hours in case of any itching complaints. The patient does use Restoril 30 mg frequently at home at night for insomnia. I have added this dose, but only on a p.r.n. basis. I will defer the patient's other multiple medical issues to the hospitalist. Dr. Feldman has placed the patient on heparin 5000 units every [address] Feldman also has ordered for the patient to be transferred to [facility] when medically cleared. Emeka Lan M.D. DR: LYNN JOB#: [id number] CC:
[2017-12-21] MEDS: PCA shift volume MISC SCH (19:00)
[2017-12-21] MEDS ORDERED: PCA shift volume MISC SCH (19:00)
[2017-12-21] MEDS: Heparin 5000 units/ml inj SUBQ SCH (20:56)
[2017-12-21] MEDS ORDERED: Heparin 5000 units/ml inj SUBQ SCH (21:00)
[2017-12-22] MEDS: D5 1/2NS 1,000 ML IV SCH ×2 (00:25→13:00)
[2017-12-22 00:35] VITALS: BP 118/57
[2017-12-22 04:36] VITALS: BP 108/57
[2017-12-22 06:50] LABS: BASOPHILS % (AUTO) 0.8 % (0.0-2.0); EOSINOPHILS % (AUTO) 4.6 % (0.0-3.0); HEMATOCRIT 31.1 % (42.0-52.0); HEMOGLOBIN 10.5 G/DL (14.2-18.0); LYMPHOCYTES % (AUTO) 25.9 % (20.0-45.0); MEAN CORPUSCULAR VOLUME 92 FL (80-99); MONOCYTES % (AUTO) 9.6 % (1.0-10.0); NEUTROPHILS % (AUTO) 59.1 % (45.0-75.0); PLATELET COUNT 105 K/UL (150-450); RED BLOOD COUNT 3.38 M/UL (4.70-6.10); RED CELL DISTRIBUTION WIDTH 12.1 % (11.6-14.8); WHITE BLOOD COUNT 4.9 K/UL (4.8-10.8)
[2017-12-22] MEDS: PCA shift volume MISC SCH ×2 (07:25→19:00)
[2017-12-22 07:29] LABS: ANION GAP 4 mmol/L (5-15); BLOOD UREA NITROGEN 19 mg/dL (7-18); CALCIUM 8.7 MG/DL (8.5-10.1); CARBON DIOXIDE 30 MMOL/L (21-32); CHLORIDE 105 MMOL/L (98-107); POTASSIUM 4.1 MMOL/L (3.5-5.1); SODIUM 139 MMOL/L (136-145)
[2017-12-22 08:00] VITALS: BP 117/63
[2017-12-22] MEDS: ceFAZolin sod 1 GM in D5W 55 ML IV SCH (08:22)
[2017-12-22] MEDS: Heparin 5000 units/ml inj SUBQ SCH ×2 (08:25→21:00)
--- NOTE | 2017-12-22 08:38 | General Progress Note ---
Assessment/Plan Assessment/Plan s/p BKA stump revision opiod dependence hypothyroid PLAN 1. incentive spirometry 2. Lovenox 3. PT evaluation and therapy 4. Hydration 5. Pain management 6. discharge to SNF when stable impression, plan, and exam edited and reviewed in detail care discussed with RN Subjective Allergies: Coded Allergies: No Known Allergies (Unverified , 01/04/17) Subjective care noted wants SNF pain controlled Objective Last 24 Hour Vital Signs Date Time Temp Pulse Resp B/P (MAP) Pulse Ox O2 Delivery O2 Flow Rate FiO2 12/22/17 04:36 98.9 83 17 108/57 (74) 94 98.9 12/22/17 04:00 18 12/22/17 00:35 98.2 70 18 118/57 (77) 95 98.2 12/22/17 00:00 18 12/21/17 21:00 Room Air 12/21/17 20:30 18 12/21/17 20:24 98.1 77 17 112/52 (72) 95 98.1 12/21/17 16:00 98.5 79 18 103/53 (70) 96 98.5 12/21/17 16:00 18 12/21/17 13:00 97.8 77 19 103/51 (68) 97 97.8 12/21/17 12:00 97.3 76 19 110/56 (74) 97 97.3 12/21/17 11:30 18 12/21/17 10:30 Nasal Cannula 3.0 12/21/17 10:00 98.5 12/21/17 09:57 98.5 83 20 108/56 96 Nasal Cannula 3 98.5 12/21/17 09:45 82 15 109/56 99 Nasal Cannula 3 12/21/17 09:30 87 16 117/65 99 Nasal Cannula 3 12/21/17 09:30 98.3 12/21/17 09:20 88 16 118/63 98 Simple Mask 6 12/21/17 09:11 208.8 89 20 98 12/21/17 09:10 86 17 113/65 97 Simple Mask 6 12/21/17 09:05 85 23 129/74 97 Simple Mask 6 12/21/17 09:01 98.3 89 20 128/78 98 Simple Mask 6 98.3 Intake and Output 12/21/17 12/22/17 19:00 07:00 Intake Total 1100 ml 360 ml Output Total 30 ml Balance 1070 ml 360 ml Intake Oral 400 ml 360 ml IV Total 700 ml Output Stool Total 0 ml Estimated Blood Loss 30 ml # Voids 1 3 Laboratory Tests 12/22/17 06:00: White Blood Count 4.9, Red Blood Count 3.38L, Hemoglobin 10.5L, Hematocrit 31.1L , Mean Corpuscular Volume 92, Mean Corpuscular Hemoglobin 31.2H, Mean Corpuscular Hemoglobin Concent 33.9, Red Cell Distribution Width 12.1, Platelet Count 105L, Mean Platelet Volume 8.7, Neutrophils (%) (Auto) 59.1, Lymphocytes ( %) (Auto) 25.9, Monocytes (%) (Auto) 9.6, Eosinophils (%) (Auto) 4.6H, Basophils (%) (Auto) 0.8, Sodium Level 139, Potassium Level 4.1, Chloride Level 105, Carbon Dioxide Level 30, Anion Gap 4L, Blood Urea Nitrogen 19H, Creatinine 1.0, Estimat Glomerular Filtration Rate , Glucose Level 107H, Calcium Level 8.7 Height (Feet): 5 Height (Inches): 6.00 Weight (Pounds): 165 Objective WDWN NAD poor vision clear breath sounds bilaterally without rhonchi or wheeze [id number] without MRG NABS nontender no HSM no CCE stump dressed nonfocal Sawyer Gallegos MD Dec 22, 2017 08:38
--- NOTE | 2017-12-22 09:06 | 48 Hour Post Anesthesia Eval ---
Post Anesthesia Evaluation Procedure: Revision of R BKA stamp Date of Evaluation: Dec 22, 2017 Time of Evaluation: 09:04 Blood Pressure Systolic: 116 0: 78 Pulse Rate: 76 Respiratory Rate: 20 Temperature (Fahrenheit): 97.8 O2 Sat by Pulse Oximetry: 98 Airway: patent Nausea: No Vomiting: No Pain Intensity: 3 Hydration Status: adequate Cardiopulmonary Status: stable Follow-up Care/Observations: n/a Post-Anesthesia Complications: none Follow-up care needed: N/A Morteza Gaitan MD Dec 22, 2017 09:06
[2017-12-22 12:00] VITALS: BP 118/68
[2017-12-22 16:00] VITALS: BP 116/67
--- NOTE | 2017-12-22 16:15 | Progress Note ---
DATE: 12/22/2017 ACUTE PAIN MANAGEMENT PHYSICIAN PROGRESS NOTE MEDICATIONS: Medication administration record reviewed. Medications include Tylenol, Mylanta, Benadryl, Pepcid, subcutaneous heparin b.i.d., Dilaudid, Synthroid, milk of magnesia, Remeron, Narcan, Zofran, and Restoril. LABORATORY DATA: Laboratory studies from this morning, 12/22/2017, shows white count 5, hematocrit 31, and platelets 105,000. Sodium 139, potassium 4.1, chloride 105, bicarb 30, BUN 19, creatinine 1.0, glucose 107, and calcium 8.7. OBJECTIVE: VITAL SIGNS: Afebrile, pulse 76, respirations 20, oxygen saturation 98%, and blood pressure 117/63. I saw the patient at the bedside. I discussed the case with the surgeon, Dr. Enrique Feldman and the nurse RN, Geronimo. Dr. Gallegos has ordered case management consult to follow up with Dr. Feldman, who ordered the patient to be transferred to [facility] when medically cleared. The patient continues to use his Dilaudid DYNAMOMETER TUNER, which is working well. He do have multiple p.r.n. pain medications available including both oral and intravenous Dilaudid for breakthrough. The patient also has his Restoril 30 mg, which he did take last night for his chronic insomnia. The patient is on scheduled Remeron 45 mg at bedtime as well. For DVT prophylaxis, Dr. Feldman has placed the patient on subcutaneous heparin every 12 hours . At the bedside, the patient is alert and ordered x3. At this point, I will defer discharge planning to Dr. Gallegos and the surgical team. I will continue his DYNAMOMETER TUNER and his current analgesic regimen for as long as he remains here in the [facility]. Emeka Lan M.D. DR: LYNN JOB#: [id number] CC:
[2017-12-22 20:00] VITALS: BP 112/54
[2017-12-22] MEDS: Dyna-Hex 2% Top Sol 2oz TOPIC SCH (20:18)
[2017-12-23] VITALS: BP_SYST 110; BP_SYST 130; BP_DIAS 56; BP_DIAS 73
[2017-12-23] MEDS: D5 1/2NS 1,000 ML IV SCH ×2 (02:00→16:05)
[2017-12-23 04:00] VITALS: BP 136/76
[2017-12-23] MEDS: PCA shift volume MISC SCH (07:00)
[2017-12-23 07:07] LABS: BASOPHILS % (AUTO) 0.3 % (0.0-2.0); EOSINOPHILS % (AUTO) 4.5 % (0.0-3.0); HEMATOCRIT 33.3 % (42.0-52.0); HEMOGLOBIN 11.6 G/DL (14.2-18.0); LYMPHOCYTES % (AUTO) 20.6 % (20.0-45.0); MEAN CORPUSCULAR VOLUME 91 FL (80-99); MONOCYTES % (AUTO) 9.1 % (1.0-10.0); NEUTROPHILS % (AUTO) 65.5 % (45.0-75.0); PLATELET COUNT 107 K/UL (150-450); RED BLOOD COUNT 3.68 M/UL (4.70-6.10); RED CELL DISTRIBUTION WIDTH 11.8 % (11.6-14.8); WHITE BLOOD COUNT 6.1 K/UL (4.8-10.8)
[2017-12-23 07:19] LABS: ANION GAP 5 mmol/L (5-15); BLOOD UREA NITROGEN 15 mg/dL (7-18); CALCIUM 8.8 MG/DL (8.5-10.1); CARBON DIOXIDE 28 MMOL/L (21-32); CHLORIDE 104 MMOL/L (98-107); CREATININE 0.9 MG/DL (0.55-1.30); SODIUM 137 MMOL/L (136-145)
[2017-12-23 08:00] VITALS: BP 142/80
--- NOTE | 2017-12-23 08:26 | General Progress Note ---
Assessment/Plan Assessment/Plan s/p BKA stump revision opiod dependence hypothyroid PLAN 1. incentive spirometry 2. Lovenox 3. PT evaluation and therapy 4. Hydration 5. Pain management 6. discharge to SNF when stable impression, plan, and exam edited and reviewed in detail care discussed with RN Subjective Allergies: Coded Allergies: No Known Allergies (Unverified , 01/04/17) Subjective care noted wants SNF pain controlled Objective Last 24 Hour Vital Signs Date Time Temp Pulse Resp B/P (MAP) Pulse Ox O2 Delivery O2 Flow Rate FiO2 12/23/17 04:00 17 12/23/17 04:00 97.0 85 18 136/76 (96) 96 97.0 12/23/17 00:00 17 12/23/17 00:00 98.8 89 19 110/56 (74) 99 98.8 12/22/17 21:00 Room Air 12/22/17 20:00 98.3 61 20 112/54 (73) 99 98.3 12/22/17 20:00 18 12/22/17 16:00 20 12/22/17 16:00 97.7 82 20 116/67 (83) 99 97.7 12/22/17 12:00 20 12/22/17 12:00 98.2 77 20 118/68 (85) 94 98.2 12/22/17 09:06 208.0 76 20 98 12/22/17 09:00 Room Air Intake and Output 12/22/17 12/23/17 19:00 07:00 Intake Total 1055 ml 1305 ml Output Total 650 ml 800 ml Balance 405 ml 505 ml Intake Oral 980 ml 480 ml IV Total 75 ml 825 ml Output Urine Total 650 ml 800 ml # Voids 3 3 Laboratory Tests 12/23/17 06:40: White Blood Count 6.1, Red Blood Count 3.68L, Hemoglobin 11.6L, Hematocrit 33.3L , Mean Corpuscular Volume 91, Mean Corpuscular Hemoglobin 31.4H, Mean Corpuscular Hemoglobin Concent 34.7, Red Cell Distribution Width 11.8, Platelet Count 107L, Mean Platelet Volume 8.1, Neutrophils (%) (Auto) 65.5, Lymphocytes ( %) (Auto) 20.6, Monocytes (%) (Auto) 9.1, Eosinophils (%) (Auto) 4.5H, Basophils (%) (Auto) 0.3, Sodium Level 137, Potassium Level 4.0, Chloride Level 104, Carbon Dioxide Level 28, Anion Gap 5, Blood Urea Nitrogen 15, Creatinine 0.9, Estimat Glomerular Filtration Rate , Glucose Level 115H, Calcium Level 8.8 Height (Feet): 5 Height (Inches): 6.00 Weight (Pounds): 165 Objective WDWN NAD poor vision clear breath sounds bilaterally without rhonchi or wheeze [id number] without MRG NABS nontender no HSM no CCE stump dressed nonfocal Sawyer Gallegos MD Dec 23, 2017 08:25
[2017-12-23] MEDS: Heparin 5000 units/ml inj SUBQ SCH ×3 (09:00→20:55)
[2017-12-23 12:00] VITALS: BP 120/67
[2017-12-23] MEDS ORDERED: Rate Change PCA 1 Each MISC PRN (13:00)
[2017-12-23] MEDS ORDERED: PCA HYDROmorphone 1mg/ml 30 ML IV PRN (14:30)
[2017-12-23] MEDS ORDERED: Naloxone 0.4mg/ml Inj IV PRN (14:45)
[2017-12-23 16:00] VITALS: BP 122/68
[2017-12-23] MEDS ORDERED: HYDROmorphone 2mg tab ORAL PRN (18:00)
[2017-12-23] MEDS ORDERED: HYDROmorphone 1mg/ml Carpuject IVP PRN (18:00)
[2017-12-23] MEDS ORDERED: PCA shift volume MISC SCH (19:00)
--- NOTE | 2017-12-23 19:00 | Progress Note ---
DATE: 12/23/2017 ACUTE PAIN MANAGEMENT PHYSICIAN PROGRESS NOTE OBJECTIVE: VITAL SIGNS: Afebrile, pulse 88, respirations 18, blood pressure 120/67, saturation 98%. LABORATORY STUDIES: From this morning, 12/23/2017, shows white count 6, hematocrit 33, and platelets 107,000. Sodium 137, potassium 4.0, chloride 104, bicarbonate 28, BUN 15, creatinine 0.9, and glucose 115. MEDICATIONS: Medication administration record reviewed. Medications include subcutaneous heparin, Synthroid, Remeron, Pepcid, Dilaudid END WORKER, Tylenol, Zofran, milk of magnesia, Dilaudid p.r.n., Benadryl, Mylanta, and Restoril. I saw the patient at bedside. I discussed the case with the nurse RN, Micheline, who discussed with the egg caser, Rachel. The egg caser, Rachel, is contacting [facility] to expedite hospital transfer, which is the desire of the surgeon, Dr. Feldman. The patient is sitting comfortably in bed. He is using his END WORKER unit. He has available p.r.n. doses of IV and oral Dilaudid pills. The patient has not been eating this. At this time, I will discontinue the END WORKER unit, so that he can use the p.r.n. pain medications instead. The patient remains on his scheduled Remeron 45 mg nightly, and has been requesting his Restoril 30 mg nearly every night. The patient is on subcutaneous heparin for DVT prophylaxis. Dr. Gallegos is managing the patient's medical issues. We will await for bed availability for transfer. Emeka Lan M.D. DR: MICHELET JOB#: [id number] CC:
[2017-12-23 20:00] VITALS: BP 106/54
[2017-12-23] MEDS: Dyna-Hex 2% Top Sol 2oz TOPIC SCH (20:00)
[2017-12-23] MEDS ORDERED: D5 1/2NS 1000ml IV ONE (22:39)
--- NOTE | 2017-12-25 13:25 | Discharge Summary ---
Discharge Summary Hospital Course Date of Admission Dec 21, 2017 at 06:18 Date of Discharge Dec 23, 2017 at 22:40 Admitting Diagnosis Right stump tear Reason for Hospitalization: elective surgery HPI Eusebio Cheung is a 87 year old male who was admitted on Dec 21, 2017 at 06: 18 for Right Stump Tear Consultations dr Lan pain specialist dr Gallegos - IM Procedures s/p 12/21/18 by Enrique Mathew revision amputation of right stump Dec 21, 2017 07:59 Hospital Course s/p surgery course of recovery uneventful initially IVF wound care dressing change prn pain management provided as per pain specialist recommendations DVT prophylaxis patient was working with PT/OT started on diet as tolerated , antiemetics prn voided freely DVT and GI prophylaxis provided Levothyroxine resumed patient clinically improved and was stable for discharge to Acute Rehab at [facility] for continuation of care FINAL DIAGNOSES s/p R BKA Right stump tear due to stump injury s/p revision amputation of right stump hypothyroidism opiate dependency Discharge Medications Continued Medications: Acetaminophen* (Acetaminophen 325MG Tablet*) 325 Mg Tablet 650 MG ORAL Q4H PRN for For Pain, TAB Hydromorphone Hcl (Dilaudid) 1 Mg/1 Ml Liquid 2 MG PO Q3HR PRN for For Pain, ML Levothyroxine Sodium* (Synthroid*) 100 Mcg Tablet 100 MCG ORAL DAILY, TAB Take in the morning on an empty stomach, at least 30 minutes before food. Mirtazapine* (Remeron*) 45 Mg Tablet 45 MG ORAL BEDTIME, TAB Temazepam (Restoril*) 30 Mg Capsule 30 MG ORAL BEDTIME, CAP 0 Refills Discharge Condition Upon Discharge: stable Discharge Disposition Patient was discharged to Acute Rehab Hosp/Unit(62) Discharge Instructions Discharge Instructions Special Instructions I have been assigned to complete a D/C Summary on this account. I was not involved in the patient management Dinah Alvarez NP Dec 25, 2017 13:25
--- NOTE | 2017-12-28 17:15 | Operative Note - Dictated ---
DATE OF OPERATION: 12/21/2017 PREOPERATIVE DIAGNOSIS: Failure of amputation, below knee. POSTOPERATIVE DIAGNOSIS: Failed amputation, below knee. PROCEDURE: Revision of amputation, below knee. SURGEON: Enrique Feldman M.D. COOK RELIEF: Unknown. HOME WORKER: None. PREOPERATIVE NOTE: This is a pleasant gentleman who has had an amputation below knee again done. He has been having stump pain. There is prominence in the bone. I explained to him that considering he has bilateral amputations, the goal was to keep this minimally invasive as possible. I explained to him that we would revise it, cover his stump, and remove the bony prominences. The patient agreed and consented. OPERATIVE ROOM NOTE: Under the benefit of general anesthetic, the patient was given antibiotics. The patient's stump was prepped and draped in proper manner, incised through subcutaneous tissue for skin down onto the bone and periosteum. We identified the sharp areas of the bone on which I used a saw and rongeur to make it smooth and remove some bone. I then took the muscle flap and giving attachment directly onto the bone, which covered it some nicely. Irrigated the wound copiously. Before that confirming that there is nice coverage, I was very pleased. We closed the subcutaneous tissue with 2-0 Vicryl and skin with barbara. The patient went to recovery room in stable condition. There were no complications. Enrique Feldman M.D. DR: JAMAL JOB#: [id number] CC:
== END 2017-12-23 22:40 | disposition short-term general hospital (02) | DRG 475 ==
LOC: SDSOVERFLO 12-21 06:18 → 3E 12-21 09:48
PROC: 0Y6H0Z3 Detachment at Right Lower Leg, Low, Open Approach (ICD-10-PCS; principal; 2017-12-21 07:30)
DX: T87.89 Other complications of amputation stump (principal); S86.921A Laceration of unspecified muscle(s) and tendon(s) at lower leg level, right leg, initial encounter; F11.20 Opioid dependence, uncomplicated; Y83.5 Amputation of limb(s) as the cause of abnormal reaction of the patient, or of later complication, without mention of misadventure at the time of the procedure; G89.18 Other acute postprocedural pain; E03.9 Hypothyroidism, unspecified; G47.00 Insomnia, unspecified; R01.1 Cardiac murmur, unspecified; X58.XXXS Exposure to other specified factors, sequela; Y37.90XS Military operations, unspecified, sequela
CPT/HCPCS: 36415; 80048; 80053; 81003; 85025; 85610; 85730; 86850; 86900; 86901; 86920; 87081; 87086; 94003; 94150; J2250

== ENCOUNTER 2017-12-15 08:54 | Outpatient (CLI) | payer MEDICARE, MEDICAID ==
[~2017-12-15] VITALS: Ht 167.6 cm; Wt 74.8 kg
[2017-12-15] MEDS ORDERED: Lidocaine 1% Plain 30 ml INJ SCH (09:15)
[2017-12-15] MEDS ORDERED: Heparin 2000 units/Ns 1000ml INJ SCH (09:15)
--- NOTE | 2017-12-15 11:53 | Diagnostic Imaging Report ---
Indications: Needs long-term IV access Technique: Ultrasound confirms patent compressible right basilic vein. Total sterile technique, including sterile probe cover and sterile gel, hat, mask, sterile gown, large sterile drape, and preparation with 2% chlorhexidine utilized. Local anesthesia with 1% lidocaine. Under real-time ultrasound guidance, puncture basilic vein using 21-gauge needle, documented and archived, passage 0.018 guidewire under direct fluoroscopy, which was used to determine appropriate catheter length, exchange for 5 Faroese peel-away sheath. 5 Faroese Bard dual-lumen power PICC cut to 41 cm. It was inserted through the peel-away sheath. Peel-away sheath and guidewire removed. Catheter fixed to the skin. Both catheter ports aspirated and flushed. Patient tolerated procedure well, without immediate complication. Digital radiograph documents satisfactory catheter tip position, at the cavoatrial junction. Total fluoroscopy time 1.4 minutes. Total dose area product 46 dGycm2 Total number of images: 1 Impression: Successful placement of right arm PICC under sonographic and fluoroscopic guidance, as described above.
--- NOTE | 2017-12-15 12:07 | Diagnostic Imaging Report ---
Indication: Cough Technique: 2 views of the chest Comparison: 05/27/2017 Findings: Lungs and pleural spaces are clear. The heart size is normal. The bones are unremarkable except for degenerative thoracic spondylosis changes. No significant interim change. Again demonstrated is a PICC, which was recently placed Impression: Negative
== END 2017-12-15 10:54 | disposition home or self-care (01) ==
LOC: RAD 08:54
DX: Z45.2 Encounter for adjustment and management of vascular access device (principal); R05 Cough
CPT/HCPCS: 36569; 71046; 76937; J1644; J2001

== ENCOUNTER 2018-01-23 09:09 | Outpatient (RCR) | payer MEDICARE, MEDICAID | END 2018-02-01 | disposition home or self-care (01) | LOC: WCC 09:09 | DX: L97.812 Non-pressure chronic ulcer of other part of right lower leg with fat layer exposed (principal); T81.31XS Disruption of external operation (surgical) wound, not elsewhere classified, sequela; Z89.512 Acquired absence of left leg below knee; Z89.511 Acquired absence of right leg below knee | CPT/HCPCS: 11042; 11043 ==

== ENCOUNTER 2018-03-06 09:29 | Outpatient (RCR) | payer MEDICARE, MEDICAID ==
[2018-03-22] MEDS ORDERED: LINEZOLID600 MG PO (11:39)
== END 2018-04-03 | disposition home or self-care (01) ==
LOC: EDBD → WCC 09:29 → EDBD 09:29
DX: L97.813 Non-pressure chronic ulcer of other part of right lower leg with necrosis of muscle (principal); T81.31XS Disruption of external operation (surgical) wound, not elsewhere classified, sequela; L97.812 Non-pressure chronic ulcer of other part of right lower leg with fat layer exposed; L97.811 Non-pressure chronic ulcer of other part of right lower leg limited to breakdown of skin; Z89.512 Acquired absence of left leg below knee; Z89.511 Acquired absence of right leg below knee
CPT/HCPCS: 11042; 11043

== ENCOUNTER → 2018-03-07 | Outpatient (CLI) | payer MEDICARE, MEDICAID ==
[~2018-03-07] VITALS: Ht 30.5 cm; Wt 0.5 kg
[~2018-03-07] MED LIST changes: +Heparin 2000 units/Ns 1000ml INJ SCH; +Lidocaine 1% Plain 30 ml INJ SCH
--- NOTE | 2018-03-07 12:33 | Pre-Procedure Note/Attestation ---
Pre-Procedure Note/Attestation Complete Prior to Procedure Planned Procedure: not applicable Procedure Narrative: PICC Indications for Procedure Pre-Operative Diagnosis: needs long winder tender IV ABX Attestation I attest that I discussed the nature of the procedure; its benefits; risks and complications; and alternatives (and the risks and benefits of such alternatives ), prior to the procedure, with the patient (or the patient's legal insurance sales representative). I attest that, if there was a reasonable possibility of needing a blood transfusion, the patient (or the patient's legal insurance sales representative) was given the [facility] standardized written summary, pursuant to the [place]ghia Dominga Blood Safety Act ([place] Health and Safety Code # 1645, as amended). I attest that I re-evaluated the patient just prior to the surgery and that there has been no change in the patient's H&P, except as documented below: Cornell Llamas MD Mar 07, 2018 12:33
--- NOTE | 2018-03-07 12:34 | Brief Operative Note ---
Immediate Post Operative Note Operative Note Pre-op Diagnosis: needs terminal make up operator IV ABX Procedure: PICC, limited chest venogram Post-op Diagnosis: Same Surgeon: Vita LLAMAS Anesthesia: local Specimen: none Complications: none Condition: stable Fluids: none Estimated Blood Loss: none Implant(s) used?: No Cornell Llamas MD Mar 07, 2018 12:34
--- NOTE | 2018-03-07 14:27 | Diagnostic Imaging Report ---
Indications: Needs long-term IV access Technique: Informed consent obtained prior consent of the procedure. Procedural timeout performed. Ultrasound confirms patent compressible vein. Total sterile technique, including sterile probe cover and sterile gel, hat, mask, sterile gown, large sterile drape, and preparation with 2% chlorhexidine utilized. Local anesthesia with 1% lidocaine. Under real-time ultrasound guidance, puncture vein using 21-gauge needle, documented and archived, passage 0.018 guidewire under direct fluoroscopy, which would not pass beyond the upstream subclavian vein. A 5 Arabic peel-away sheath was inserted. A Kumpe catheter was inserted. Attempts made at manipulating the guidewire through the subclavian vein, unsuccessful. A small amount of contrast was injected, and a limited venogram was performed. This documented patency of the subclavian vein, no definite reason for the failure of the guidewire to advance, except that there were large adjacent collateral pathways which the guidewire may have preferentially been entering. The catheter was used to manipulate the guidewire into the right atrium. The guidewire was used to determine appropriate catheter length. 5 Arabic Bard dual-lumen power PICC cut to 45 cm. It was inserted through the peel-away sheath. Peel-away sheath and guidewire removed. Catheter fixed to the skin. Both catheter ports aspirated and flushed. Patient tolerated procedure well, without immediate complication. Digital radiograph documents satisfactory catheter tip position, at the cavoatrial junction. Total fluoroscopy time 3.5 minutes. Total dose area product 163 dGycm2 Total number of images: 13 Impression: Successful placement of right arm PICC under sonographic and fluoroscopic guidance, as described above.
== END | disposition home or self-care (01) ==
LOC: EDBD → RAD 11:17
DX: Z45.2 Encounter for adjustment and management of vascular access device (principal)
CPT/HCPCS: 36569; 75820; 76937; J1644; J2001; Q9967

== ENCOUNTER 2018-12-05 17:20 | Inpatient (IN) | payer MEDICARE, MEDICAID ==
[~2018-12-05] VITALS: Ht 152.4 cm; Wt 72.6 kg
[2018-12-05 17:20] VITALS: BP 105/67
[~2018-12-05 17:20] MED LIST changes: -Heparin 2000 units/Ns 1000ml INJ SCH; +LINEZOLID600 MG PO; -Lidocaine 1% Plain 30 ml INJ SCH
[2018-12-05 18:05] LABS: BASOPHILS % (AUTO) 1.4 % (0.0-2.0); HEMATOCRIT 29.6 % (42.0-52.0); HEMOGLOBIN 10.6 G/DL (14.2-18.0); LYMPHOCYTES % (AUTO) 21.1 % (20.0-45.0); MEAN CORPUSCULAR VOLUME 92 FL (80-99); MONOCYTES % (AUTO) 4.7 % (1.0-10.0); NEUTROPHILS % (AUTO) 69.8 % (45.0-75.0); PLATELET COUNT 174 K/UL (150-450); RED BLOOD COUNT 3.23 M/UL (4.70-6.10); WHITE BLOOD COUNT 8.4 K/UL (4.8-10.8)
[2018-12-05 18:17] LABS: ANION GAP 10 mmol/L (5-15); BLOOD UREA NITROGEN 16 mg/dL (7-18); CARBON DIOXIDE 28 MMOL/L (21-32); CHLORIDE 104 MMOL/L (98-107); CREATININE 1.2 MG/DL (0.55-1.30); POTASSIUM 4.5 MMOL/L (3.5-5.1); SODIUM 141 MMOL/L (136-145)
[2018-12-05 18:27] LABS: ALANINE AMINOTRANSFERASE 13 U/L (12-78); ALBUMIN 2.9 G/DL (3.4-5.0); ALBUMIN/GLOBULIN RATIO 0.7 (1.0-2.7); ALKALINE PHOSPHATASE 63 U/L (46-116); ASPARTATE AMINO TRANSFERASE 21 U/L (15-37); BILIRUBIN,TOTAL 0.4 MG/DL (0.2-1.0); CREATINE KINASE 84 U/L (26-308); PHOSPHORUS 3.9 MG/DL (2.5-4.9)
[2018-12-05] MEDS ORDERED: Cefepime HCl 2 GM in NS 110 ML IV SCH (18:45)
[2018-12-05] MEDS ORDERED: Vancomycin 1 GM in NS 275 ML IV ONE (18:45)
--- NOTE | 2018-12-05 18:53 | Emergency Room Report ---
History of Present Illness General Chief Complaint: General Complaint Source: Patient Present Illness HPI Disclaimer: Please note that this report is being documented using DRAGON technology. This can lead to erroneous entry secondary to incorrect interpretation by the dictating instrument. HPI: 89-year-old male with bilateral BKA amputations with revision discharge from the hospital November 22 presents for evaluation of wound dehiscence and stump infection. His orthopedic surgeon is Dr. Feldman. Patient is noted discharge and wound dehiscence of the right stump for several weeks. According to paperwork from his orthopedic surgeon he has been refusing to come to the hospital. He is noted warmth and tenderness over both stumps but the right is worse than the left. Denies any fevers, chills, chest pain, shortness of breath , cough, abdominal pain, vomiting, diarrhea, dysuria otherwise. No other complaints at this time. Sent in for admission and IV antibiotics by his over the pedis surgeon. 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 EOMI. Cardiovascular: RRR. S1 and S2 normal. No murmur appreciated Resp: Normal work of breathing. No cough, wheezing or crackles appreciated Abdomen: Abdomen is soft, nondistended. Nontender MSK: Bilateral BKA. Stumps are erythematous around surgical sites. The left stump incision is closed with multiple barbara intact and appears well approximated. No dehiscence. There is surrounding erythema and tenderness with warmth without discharge or drainage or bleeding. The right stump is dehisced with multiple sutures and barbara retained. Purulent drainage present. Tender and warm to touch. No bleeding Neuro: Awake and alert. Mentating appropriately. Good insight into medical condition Medical Decision Making Diagnostic Impression: Primary Impression: Amputation stump infection Additional Impression: Anemia ER Course 88-year-old male presents for evaluation of bilateral stump infection after recent revision. He will be admitted for IV antibiotics. Will obtain broad infectious work-up including blood cultures. He will be treated with vancomycin and cefepime. Laboratory Tests Test 12/05/18 17:30 White Blood Count 8.4 K/UL (4.8-10.8) Red Blood Count 3.23 M/UL (4.70-6.10) L Hemoglobin 10.6 G/DL (14.2-18.0) L Hematocrit 29.6 % (42.0-52.0) L Mean Corpuscular Volume 92 FL (80-99) Mean Corpuscular Hemoglobin 32.7 PG (27.0-31.0) H Mean Corpuscular Hemoglobin Concent 35.7 G/DL (32.0-36.0) Red Cell Distribution Width 12.0 % (11.6-14.8) Platelet Count 174 K/UL (150-450) Mean Platelet Volume 5.8 FL (6.5-10.1) L Neutrophils (%) (Auto) 69.8 % (45.0-75.0) Lymphocytes (%) (Auto) 21.1 % (20.0-45.0) Monocytes (%) (Auto) 4.7 % (1.0-10.0) Eosinophils (%) (Auto) 3.0 % (0.0-3.0) Basophils (%) (Auto) 1.4 % (0.0-2.0) Sodium Level 141 MMOL/L (136-145) Potassium Level 4.5 MMOL/L (3.5-5.1) Chloride Level 104 MMOL/L (98-107) Carbon Dioxide Level 28 MMOL/L (21-32) Anion Gap 10 mmol/L (5-15) Blood Urea Nitrogen 16 mg/dL (7-18) Creatinine 1.2 MG/DL (0.55-1.30) Estimate Glomerular Filtration Rate mL/min (>60) Glucose Level 113 MG/DL (74-106) H Lactic Acid Level 0.70 mmol/L (0.4-2.0) Calcium Level 9.0 MG/DL (8.5-10.1) Phosphorus Level 3.9 MG/DL (2.5-4.9) Magnesium Level 2.1 MG/DL (1.8-2.4) Total Bilirubin 0.4 MG/DL (0.2-1.0) Aspartate Amino Transferase (AST) 21 U/L (15-37) Alanine Aminotransferase (ALT) 13 U/L (12-78) Alkaline Phosphatase 63 U/L (46-116) Total Creatine Kinase 84 U/L (26-308) Troponin I 0.000 ng/mL (0.000-0.056) Pro-B-Type Natriuretic Peptide 347 pg/mL (0-125) H Total Protein 7.3 G/DL (6.4-8.2) Albumin 2.9 G/DL (3.4-5.0) L Globulin 4.4 g/dL Albumin/Globulin Ratio 0.7 (1.0-2.7) L Last Vital Signs Date Time Temp Pulse Resp B/P (MAP) Pulse Ox O2 Delivery O2 Flow Rate FiO2 12/05/18 17:15 98.6 83 15 105/67 (80) 93 Room Air Disposition: ADMITTED INPATIENT Condition: Serious Jose Cook MD Dec 05, 2018 18:53
[2018-12-05] MEDS ORDERED: PRILOSEC OTC20 MG ORAL (19:40)
[2018-12-05] MEDS ORDERED: SENNA LAXATIVE8.6 MG PO (19:40)
[2018-12-05] MEDS ORDERED: HYDROmorphone 1mg/ml Carpuject IVP ONE (20:15)
[2018-12-05] MEDS ORDERED: HYDROmorphone 2mg tab ORAL ONE (20:15)
[2018-12-05] MEDS ORDERED: Hydromorphone 0.5mg/0.5ml inj IVP ONE (20:15)
[2018-12-05 21:30] VITALS: BP 119/69
[2018-12-05] MEDS ORDERED: Acetaminophen 500mg (ES) tab ORAL PRN (23:15)
[2018-12-05] MEDS ORDERED: Mylanta II UD 30ml ORAL PRN (23:15)
[2018-12-05] MEDS ORDERED: Bactrim-DS 1 tab ORAL SCH (23:30)
[2018-12-06] VITALS: BP 94/58
[2018-12-06 04:00] VITALS: BP 120/66
[2018-12-06 08:00] VITALS: BP 93/56
[2018-12-06 08:07] LABS: BASOPHILS % (AUTO) 0.5 % (0.0-2.0); HEMATOCRIT 32.3 % (42.0-52.0); HEMOGLOBIN 10.7 G/DL (14.2-18.0); LYMPHOCYTES % (AUTO) 18.3 % (20.0-45.0); MEAN CORPUSCULAR VOLUME 95 FL (80-99); MONOCYTES % (AUTO) 3.9 % (1.0-10.0); NEUTROPHILS % (AUTO) 72.3 % (45.0-75.0); PLATELET COUNT 173 K/UL (150-450); RED BLOOD COUNT 3.41 M/UL (4.70-6.10); RED CELL DISTRIBUTION WIDTH 12.4 % (11.6-14.8); WHITE BLOOD COUNT 6.1 K/UL (4.8-10.8)
[2018-12-06 08:50] LABS: ALANINE AMINOTRANSFERASE 15 U/L (12-78); ALBUMIN 2.7 G/DL (3.4-5.0); ALBUMIN/GLOBULIN RATIO 0.6 (1.0-2.7); ALKALINE PHOSPHATASE 58 U/L (46-116); ANION GAP 7 mmol/L (5-15); ASPARTATE AMINO TRANSFERASE 21 U/L (15-37); BILIRUBIN,TOTAL 0.5 MG/DL (0.2-1.0); BLOOD UREA NITROGEN 14 mg/dL (7-18); CALCIUM 8.7 MG/DL (8.5-10.1); CARBON DIOXIDE 28 MMOL/L (21-32); CHLORIDE 104 MMOL/L (98-107); CHOLESTEROL 162 MG/DL (< 200); CREATININE 1.2 MG/DL (0.55-1.30); FERRITIN 50 NG/ML (8-388); HDL CHOLESTEROL 44 MG/DL (40-60); PHOSPHORUS 3.4 MG/DL (2.5-4.9); POTASSIUM 4.4 MMOL/L (3.5-5.1); SODIUM 139 MMOL/L (136-145); TRIGLYCERIDES 57 MG/DL (30-150)
[2018-12-06 10:31] LABS: % IRON SATURATION 26 % (15-50); IRON 66 ug/dL (50-175); TOTAL IRON BINDING CAPACITY 254 ug/dL (250-450)
[2018-12-06 12:00] VITALS: BP 98/54
--- NOTE | 2018-12-06 14:40 | Consultation ---
History of Present Illness General Date patient seen: Dec 06, 2018 Reason for Hospitalization: General Complaint Present Illness HPI This is a very pleasant 88-year-old male who is well-known to me from recent admission and discharge. Patient had a revision of his bilateral lower extremity below-knee amputations by Dr. Sweet and was admitted postoperatively for care and management. Patient had an uneventful postoperative course and was discharged in stable condition. During that admission patient was identified to have a forming sacral decubitus ulcer which I was caring for and slowly improving upon discharge. Since patient has been in recovery outside of the hospital but was identified to have dehiscence of his lower extremity stumps with drainage and likely infection. Patient was advised to come to the emergency department on multiple occasions by his surgeon as patient states but he declined to do so and delayed until recently as it was worsening and came in for evaluation. On admission patient noted to have abnormal labs and open wound with active infection in his right below-knee amputation revision as well as drainage from his left nose knee amputation incision. Surgery was called to evaluate and assist with care. Patient seen, patient Todd, chart reviewed. Patient states he is doing well but is unsure why is not healing and just wants to recover right away and does not feel she is doing so well in his current recovery. In discussing his past surgical history with him patient states that his initial amputation of his right lower extremity was below-knee in 1988 when he was in the [place] due to an injury. He had a revision in 1991 followed by another revision in 2017 for bone spur. He then had his recent bilateral lower extremity revision by Dr. Sweet because there was a retained staple/foreign body in the wound bed. As well as bone issues. Furthermore patient had his first left below-knee amputation in 1990 followed by revision 1991 followed by revision in 2018 as well. He also had a revision due to bone spur and recently with Dr. Sweet. This information is provided by the patient as he believes it stated Allergies: Coded Allergies: No Known Allergies (Unverified , 01/04/17) Medication History Scheduled Levothyroxine Sodium* (Synthroid*), 200 MCG ORAL DAILY, (Reported) Omeprazole Magnesium (Prilosec Otc), 40 MG ORAL DAILY, (Reported) Oxycodone Hcl Er* (Oxycontin*), 20 MG ORAL DAILY, (Reported) Temazepam (Restoril*), 45 MG ORAL BEDTIME, (Reported) Scheduled PRN Acetaminophen* (Acetaminophen 325MG Tablet*), 650 MG ORAL Q4H PRN for Mild Pain/ Temp > 100.5, (Reported) Miscellaneous Medications Sennosides (Senna Laxative), 17.2 MG PO, (Reported) Patient History History Provided By: Patient, Medical Record, PMD Healthcare decision maker Resuscitation status Full Code Advanced Directive on File Past Medical/Surgical History Past Medical/Surgical History: (1) Leg pain (2) Hypothyroid (3) Postoperative wound closure planning (4) Stump injury (5) Infection of amputation stump, right lower extremity (6) Sacral decubitus ulcer (7) Anemia (8) Amputation stump infection Review of Systems Review of Symptoms General ROS: no weight loss or fever Psychological ROS: no depression or mood changes, no memory loss Ophthalmic ROS: no visual changes or eye irritation ENT ROS: no nasal congestion, hearing loss, dizziness Allergy and Immunology ROS: no allergic symptoms or urticaria Hematological and Lymphatic ROS: no swollen glands, unusual bleeding or bruising Endocrine ROS: no polyuria, polydipsia, weight changes, temperature intolerance Respiratory ROS: no cough, shortness of breath, or wheezing Cardiovascular ROS: no chest pain or dyspnea on exertion Gastrointestinal ROS: denies abdominal pain, no bright red blood in stool. Musculoskeletal ROS: no myalgias or arthralgias Neurological ROS: no TIA or stroke symptoms Dermatological ROS: no new or changing skin lesions, rashes or pruritis Physical Exam Physical Exam General appearance: alert, cooperative, no distress, appears stated age Head: Normocephalic, without obvious abnormality, atraumatic Eyes: conjunctivae/corneas clear. PERRL, EOM's intact. Fundi benign Throat: Lips, mucosa, and tongue normal. Teeth and gums normal Neck: supple, symmetrical, trachea midline, no adenopathy, thyroid: not enlarged, symmetric, no tenderness/mass/nodules, no carotid bruit and no JVD Lungs: clear to auscultation bilaterally Heart: regular rate and rhythm, S1, S2 normal, no murmur, click, rub or gallop Abdomen: soft, non-tender. Bowel sounds normal. No masses, no organomegaly Extremities: extremities bilateral lower extremity below-knee amputations. On the right side the recent revision flap has dehisced and serous purulent drainage identified with viable sutures and palpable bone. On the left side the flap is intact on the medial aspect there is drainage coming from the wound bed in between the barbara. There is an opening on the lateral aspect approximately 2 cm x 2 cm with unknown depth given its location Pulses: 2+ and symmetric Skin: Skin color, texture, turgor normal. No rashes or lesions Neurologic: Grossly normal Last 24 Hour Vital Signs Date Time Temp Pulse Resp B/P (MAP) Pulse Ox O2 Delivery O2 Flow Rate FiO2 12/06/18 12:20 99.1 12/06/18 12:00 97.9 79 17 98/54 (69) 96 12/06/18 09:00 Room Air 12/06/18 08:00 97.9 79 17 93/56 (68) 96 12/06/18 04:00 99.1 86 17 120/66 (84) 94 12/06/18 00:16 Room Air 12/06/18 00:00 99.2 78 17 94/58 (70) 94 12/05/18 21:30 97.2 72 16 119/69 (86) 98 12/05/18 20:28 98.0 80 18 110/70 96 Room Air 12/05/18 17:20 83 15 Room Air 12/05/18 17:20 98.6 86 15 105/67 93 Room Air 12/05/18 17:15 98.6 83 15 105/67 (80) 93 Room Air Intake and Output 12/05/18 12/06/18 19:00 07:00 Intake Total 110 ml Balance 110 ml Intake Oral 0 ml IV Total 110 ml # Voids 3 Laboratory Tests Test 12/05/18 17:30 12/06/18 06:50 12/06/18 09:44 White Blood Count 8.4 K/UL (4.8-10.8) 6.1 K/UL (4.8-10.8) Red Blood Count 3.23 M/UL (4.70-6.10) L 3.41 M/UL (4.70-6.10) L Hemoglobin 10.6 G/DL (14.2-18.0) L 10.7 G/DL (14.2-18.0) L Hematocrit 29.6 % (42.0-52.0) L 32.3 % (42.0-52.0) L Mean Corpuscular Volume 92 FL (80-99) 95 FL (80-99) Mean Corpuscular Hemoglobin 32.7 PG (27.0-31.0) H 31.5 PG (27.0-31.0) H Mean Corpuscular Hemoglobin Concent 35.7 G/DL (32.0-36.0) 33.2 G/DL (32.0-36.0) Red Cell Distribution Width 12.0 % (11.6-14.8) 12.4 % (11.6-14.8) Platelet Count 174 K/UL (150-450) 173 K/UL (150-450) Mean Platelet Volume 5.8 FL (6.5-10.1) L 6.1 FL (6.5-10.1) L Neutrophils (%) (Auto) 69.8 % (45.0-75.0) 72.3 % (45.0-75.0) Lymphocytes (%) (Auto) 21.1 % (20.0-45.0) 18.3 % (20.0-45.0) L Monocytes (%) (Auto) 4.7 % (1.0-10.0) 3.9 % (1.0-10.0) Eosinophils (%) (Auto) 3.0 % (0.0-3.0) 5.0 % (0.0-3.0) H Basophils (%) (Auto) 1.4 % (0.0-2.0) 0.5 % (0.0-2.0) Sodium Level 141 MMOL/L (136-145) 139 MMOL/L (136-145) Potassium Level 4.5 MMOL/L (3.5-5.1) 4.4 MMOL/L (3.5-5.1) Chloride Level 104 MMOL/L (98-107) 104 MMOL/L (98-107) Carbon Dioxide Level 28 MMOL/L (21-32) 28 MMOL/L (21-32) Anion Gap 10 mmol/L (5-15) 7 mmol/L (5-15) Blood Urea Nitrogen 16 mg/dL (7-18) 14 mg/dL (7-18) Creatinine 1.2 MG/DL (0.55-1.30) 1.2 MG/DL (0.55-1.30) Estimat Glomerular Filtration Rate mL/min (>60) mL/min (>60) Glucose Level 113 MG/DL (74-106) H 76 MG/DL (74-106) Lactic Acid Level 0.70 mmol/L (0.4-2.0) Calcium Level 9.0 MG/DL (8.5-10.1) 8.7 MG/DL (8.5-10.1) Phosphorus Level 3.9 MG/DL (2.5-4.9) 3.4 MG/DL (2.5-4.9) Magnesium Level 2.1 MG/DL (1.8-2.4) 2.1 MG/DL (1.8-2.4) Total Bilirubin 0.4 MG/DL (0.2-1.0) 0.5 MG/DL (0.2-1.0) Aspartate Amino Transf (AST/SGOT) 21 U/L (15-37) 21 U/L (15-37) Alanine Aminotransferase (ALT/SGPT) 13 U/L (12-78) 15 U/L (12-78) Alkaline Phosphatase 63 U/L (46-116) 58 U/L (46-116) Total Creatine Kinase 84 U/L (26-308) Troponin I 0.000 ng/mL (0.000-0.056) Pro-B-Type Natriuretic Peptide 347 pg/mL (0-125) H Total Protein 7.3 G/DL (6.4-8.2) 7.0 G/DL (6.4-8.2) Albumin 2.9 G/DL (3.4-5.0) L 2.7 G/DL (3.4-5.0) L Globulin 4.4 g/dL 4.3 g/dL Albumin/Globulin Ratio 0.7 (1.0-2.7) L 0.6 (1.0-2.7) L Hemoglobin A1c 5.9 % (4.3-6.0) Uric Acid 4.6 MG/DL (2.6-7.2) Ferritin 50 NG/ML (8-388) Triglycerides Level 57 MG/DL (30-150) Cholesterol Level 162 MG/DL (< 200) LDL Cholesterol 107 mg/dL (<100) H HDL Cholesterol 44 MG/DL (40-60) Cholesterol/HDL Ratio 3.7 (3.3-4.4) Thyroid Stimulating Hormone (TSH) 59.633 uiU/mL (0.358-3.740) Free Thyroxine 0.30 NG/DL (0.76-1.46) L Free Triiodothyronine 0.7 pg/mL (2.3-4.2) L Iron Level 66 ug/dL (50-175) Total Iron Binding Capacity 254 ug/dL (250-450) Percent Iron Saturation 26 % (15-50) Unsaturated Iron Binding 188 ug/dL (112-346) Vitamin B12 Level 262 PG/ML (193-986) Folate 16.1 NG/ML (8.6-58.9) Microbiology Date/Time Source Procedure Growth Status 12/05/18 20:25 Rectum Received Height (Feet): 5 Height (Inches): 0.00 Weight (Pounds): 149 Medications Current Medications Medications (Trade) Dose Ordered Sig/Trever Route PRN Reason Start Time Stop Time Status Last Admin Dose Admin Acetaminophen (Tylenol) 500 mg Q8H PRN ORAL Moderate Pain (Pain Scale 4-6) 12/05/18 23:15 01/04/19 23:14 Acetaminophen (Tylenol) 650 mg Q4H PRN ORAL Mild Pain/Temp > 100.5 12/05/18 23:15 01/04/19 23:14 Al Hydroxide/Mg Hydroxide (Mylanta II) 10 ml Q4H PRN ORAL indegestion 12/05/18 23:15 01/04/19 23:14 Bisacodyl (Dulcolax) 10 mg DAILYPRN PRN RECTAL Constipation 12/05/18 23:15 01/04/19 23:14 Cefepime HCl 1 gm/ Dextrose 55 ml @ 110 mls/hr Q24H IVPB 12/06/18 21:00 12/13/18 20:59 Chlorhexidine Gluconate (Sammie-Hex 2%) 1 applic DAILY@2000 TOPIC 12/06/18 20:00 01/05/19 19:59 Hydromorphone HCl (Dilaudid) 2 mg Q3H PRN IVP Severe Pain (Pain Scale 7-10) 12/05/18 23:00 12/12/18 22:59 12/06/18 11:50 Levothyroxine Sodium (Synthroid) 200 mcg DAILY@0630 ORAL 12/06/18 06:30 01/05/19 06:29 12/06/18 06:47 Magnesium Hydroxide (Mom) 30 ml DAILYPRN PRN ORAL Constipation 12/05/18 23:15 01/04/19 23:14 Pantoprazole (Protonix) 40 mg DAILY ORAL 12/06/18 09:00 01/05/19 08:59 Sennosides (Senokot) 17.2 mg BEDTIME ORAL 12/06/18 21:00 01/05/19 20:59 Temazepam (Restoril) 15 mg HSPRN PRN ORAL Insomnia 12/05/18 23:15 12/12/18 23:14 Temazepam (Restoril) 30 mg HSPRN PRN ORAL Insomnia 12/05/18 23:00 12/12/18 22:59 12/06/18 01:09 Vancomycin HCl (Vanco rx to dose) 1 ea DAILY PRN MISC Per rx protocol 12/06/18 06:15 01/05/19 06:14 Vancomycin HCl 750 mg/Sodium Chloride 275 ml @ 183.333 mls/hr Q24H IVPB 12/06/18 20:00 12/11/18 19:59 Assessment/Plan Problem List: (1) Amputation stump infection Assessment & Plan: bilateral lower extremity below-knee amputations. On the right side the recent revision flap has dehisced and serous purulent drainage identified with viable sutures and palpable bone. On the left side the flap is intact on the medial aspect there is drainage coming from the wound bed in between the barbara. There is an opening on the lateral aspect approximately 2 cm x 2 cm with unknown depth given its location We will currently continue with localized wound care as I discussed with the operating orthopedic surgeon about potential management. I discussed with the patient the current findings and the potential necessity for reoperation versus ray amputation. Versus potential salvage. Continue with IV antibiotics Dakin's wet-to-dry 3 times daily to right amputation stump open flap wound cover with gauze ABD and Kerlix Packing gauze and dressing to left lower extremity BKA wound. 3 times daily With follow with local wound care and evaluation We will discuss with orthopedic and medical team Thank you for allowing participate patient's care ICD Codes: T87.40 - Infection of amputation stump, unspecified extremity SNOMED: 814428257 (2) Sacral decubitus ulcer Assessment & Plan: This is a 88-year-old male with multiple small full- thickness sacral decubitus ulcers. Patient states that he formed because he was laying flat for 15 days at an outside facility. Identified upon admission and initiated care plan. Periwound seems to have prior healing areas as well as acute inflamed areas with full-thickness breakdown approximately 1 cm x 1 cm on the left buttock/sacral cleft and similarly on the right as well. No active drainage. No foul order. Pt presented on admission with keloid scar with hyperpigmentation sacrum from previous pressure injury;confirmed by pt. Dry loose skin noted to R and L sacrum. No open areas noted. Pt denied tenderness when site palpated. Pt resistive to being repositioned on his sides and was educated of potential risks for already compromised skin to breakdown . Pt demonstrated ability to reposition self when cued.Demonstrated to pt on how to utilize side rails to off -lift buttocks and shift weight in bed. Skin lesions noted to R and L scalp. Pt verbalized he has skin cancer and lesions were recently removed. Hypergranular skin lesions also noted to Lateral L thigh. Apply Moisture Barrier Paste to Sacrum. Cover with Optifoam drsg. Change every 3 days and prn. Encourage and assist with repositioning at least every 2hours or as tolerated.Elevate BKA stumps on pillow. Turn every 2 hours. Patient willing and does assist with ensuring that he turns every so often Offload stump pressures with pillow Thank you for allowing me to participate in patient's care will follow with recommendations ICD Codes: L89.159 - Pressure ulcer of sacral region, unspecified stage SNOMED: 695886728 (3) Postoperative wound closure planning ICD Codes: Z48.1 - Encounter for planned postprocedural wound closure SNOMED: 014803973 (4) Stump injury ICD Codes: T14.8 - Other injury of unspecified body region SNOMED: 085734118 (5) Infection of amputation stump, right lower extremity ICD Codes: T87.43 - Infection of amputation stump, right lower extremity SNOMED: 292516043, [id number] Jaiden Teresa Dec 06, 2018 14:40
--- NOTE | 2018-12-06 15:02 | Diagnostic Imaging Report ---
Indication: Knee pain Technique: 2 views of the right knee Comparison: None Findings: Patient is status post [id number] amputation. There are surgical clips and barbara in place. The margins appear well-corticated. Surgical sutures and surgical clips are noted. No acute fractures. No dislocations. No evidence of osseous erosion. Impression: Postoperative changes, as described No acute abnormality
[2018-12-06] MEDS: Dakin's 0.125% Soln (Quarter Strength) 16oz TOPIC SCH (15:59)
[2018-12-06 16:00] VITALS: BP 98/58
--- NOTE | 2018-12-06 17:15 | History and Physical Report ---
DATE OF ADMISSION: 12/05/2018 Dictated by the handouts. HISTORY OF PRESENT ILLNESS: The patient had apparently 12 days ago bilateral BKA, admitted for bilateral stump infection. Denies chills. Denies fever. He said that the operation was done at [facility] by Dr. Sawyer. He could not tell me the full name. The patient apparently had purulent drainage. Antibiotics were given in the ER and is also admitted for stump wound dehiscence with purulent discharge. Denies nausea, vomiting, or diarrhea. Denies shortness of breath. Denies cough. Denies chills. PAST MEDICAL HISTORY: History of infection, cellulitis of the lower extremity, hypothyroidism, history of decubitus ulcers, history of anemia, constipation, GERD, and skin cancer. PAST SURGICAL HISTORY: Status post bilateral BKA, status post skin cancer removed from the head, left hip surgery, and left shoulder surgery. ALLERGIES: No known allergies. MEDICATIONS: Levoxyl, omeprazole, oxycodone, Senokot, and Restoril. FAMILY HISTORY: Noncontributory. SOCIAL HISTORY: Denies history of smoking. Denies history of alcohol or illicit drugs. REVIEW OF SYSTEMS: HEENT: Denies headaches. RESPIRATORY: Denies shortness of breath. Denies cough. CARDIOVASCULAR: Denies chest pain. Denies orthopnea. GASTROINTESTINAL: Denies nausea, vomiting, or diarrhea. EXTREMITIES: Reports some pain in the stump site, some drainage. Otherwise, does have some chills. CENTRAL NERVOUS SYSTEM: No change in vision or speech pattern. PHYSICAL EXAMINATION: VITAL SIGNS: Temperature is 97.2, pulse is 72, blood pressure is 119/69. HEENT: PERRLA. NECK: Supple. No lymphadenopathy. CHEST: Clear to auscultation. CARDIOVASCULAR: Regular rate and rhythm. No murmurs or extra sounds. GASTROINTESTINAL: Soft, nontender, and nondistended. No organomegaly. EXTREMITIES: There are some purulent discharges from the stump site on bilateral sides. Bilateral below-knee amputation x2. LABORATORY AND DIAGNOSTIC DATA: WBC of 8.4, hemoglobin 10.6, and platelets of 174,000. Sodium 141, potassium 4.5, chloride 104, BUN of 16, creatinine 1.2, and glucose of 113. ASSESSMENT AND PLAN: Stump site wound dehiscence with purulent discharge, 12 days ago had bilateral below-knee amputation. Admitted for IV antibiotics. I have asked an orthopedic doctor to see him. He is set to have Dr. Teresa see the patient for possible I and D. So per request of Dr. Kee Leonard, I asked Dr. Teresa to see the patient instead. I have also asked Dr. Teresa, Dr. Hael, Dr. Partha Obrien, and Dr. Craft to see the patient for the above-mentioned diagnoses as well as for the treatment. Rossy Samuel M.D. DR: JORGE JOB#: [id number] CC:
[2018-12-06] MEDS ORDERED: ACETAMINOPHEN500 M3 ORAL (19:19)
[2018-12-06] MEDS ORDERED: BACTRIM DS TAB1 EAC1 ORAL (19:19)
[2018-12-06] MEDS ORDERED: DILAUDID 22 MG/1 M2 IJ (19:19)
[2018-12-06] MEDS ORDERED: MILK OF MA400 MG/51 ORAL (19:19)
[2018-12-06] MEDS ORDERED: OMEPRAZOLE40 M1 ORAL (19:19)
[2018-12-06] MEDS ORDERED: BISACODYL10 M1 RC (19:19)
[2018-12-06] MEDS ORDERED: MYLANTA DS PO (19:19)
[2018-12-06 20:00] VITALS: BP 103/63
[2018-12-06] MEDS: Sennosides 8.6mg tab ORAL SCH (20:34)
[2018-12-06] MEDS: Dyna-Hex 2% Top Sol 2oz TOPIC SCH (20:34)
[2018-12-06] MEDS: Vancomycin 750mg/NS 275ml IVPB SCH ×2 (20:34)
--- NOTE | 2018-12-06 22:30 | Consultation ---
DATE OF CONSULTATION: 12/06/2018 INFECTIOUS DISEASE CONSULTATION CONSULTING PHYSICIAN: Partah Obrien M.D. PRIMARY ATTENDING PHYSICIAN: Rossy Samuel M.D. REASON FOR CONSULTATION: Surgical stump infection of lower extremities. HISTORY OF PRESENT ILLNESS: The patient is a 88-year-old white male admitted yesterday from a retirement. The patient had bilateral below knee amputations. Recently, was in hospital between November 14, 2018 and November 22, 2018. He had this surgery that include hardware removal and closure of right below-knee amputation. Also, he had revision of left below knee amputation. He was discharged to retirement for couple of weeks. The patient had wound dehiscence, but refused to come to the hospital. PAST MEDICAL HISTORY: Significant for below-knee amputations, multiple leg surgeries, hypothyroidism, and has history of melanoma. MEDICATIONS: Getting Senokot, cefepime, chlorhexidine, vancomycin, Protonix, levothyroxine, , milk of magnesium, Tylenol, hydromorphone, and temazepam. ALLERGIES: No known allergies. SOCIAL HISTORY: care home resident. Single. No drug abuse. No alcohol abuse. Nonsmoker. REVIEW OF SYSTEMS: No systemic symptoms. Denies any fever or chills. No coughing, shortness of breath, nausea, vomiting, or dysuria. He has pain more in the right leg at this time. Has discharge from the wound. The patient was ambulatory in retirement with prosthetic limb. PHYSICAL EXAMINATION: VITAL SIGNS: Temperature 99.1, pulse 79, and blood pressure 98/54. GENERAL APPEARANCE: No acute distress. HEAD AND NECK: [place] conjunctiva. HEART: Normal rate. LUNGS: Clear. ABDOMEN: Soft and nontender. EXTREMITY: He has bilateral below-knee amputation. Has left arm PICC line that was placed in previous admission. SKIN: Has dehiscence of wound in the right leg stump. Wound is foul smelling. There is a small skin lesion in the left foot stump. At the most, surgical line is healed. NEUROLOGIC: Awake, alert, and oriented x3. LABORATORY AND DIAGNOSTIC DATA: WBC 6.1, hemoglobin 10.7, hematocrit 32.3, and platelets is 173,000. Sodium 139, potassium 4.4, chloride 104, bicarb 28, BUN 14, creatinine 1.2, and glucose 76. TSH is 59.6. T4 is 0.3. IMPRESSION: 1. Amputation stump infection, more in the right side. Has wound dehiscence of right amputation stump. 2. Anemia. 3. Hypothyroidism. 4. History of melanoma. RECOMMENDATIONS: 1. We will continue with cefepime and vancomycin. We will obtain culture from right amputation stump. 2. We will order a tibia and fibula x-ray on the right side to rule out osteomyelitis. 3. The patient will be evaluated by the surgeon. He likely needs more surgical procedures and likely above-knee amputation. At the end of my exam, I thank Dr. Samuel for involving me in the care of this patient. Partha Obrien M.D. DR: LACHO JOB#: [id number] CC:
[2018-12-06] MEDS: Cefepime HCl 1 GM in D5W 55 ML IVPB SCH (22:54)
[2018-12-07] VITALS: BP 99/65
[2018-12-07 04:00] VITALS: BP 98/66
[2018-12-07 08:00] VITALS: BP 112/53
[2018-12-07] MEDS: Dakin's 0.125% Soln (Quarter Strength) 16oz TOPIC SCH (10:24)
[2018-12-07 12:00] VITALS: BP 100/63
[2018-12-07] MEDS ORDERED: NS 275ml ONE (14:05)
[2018-12-07] MEDS ORDERED: Tubing IV Secondary IV ONE (14:05)
--- NOTE | 2018-12-07 15:04 | Infectious Diseases Prog Note ---
Assessment/Plan Assessment/Plan IMPRESSION: 1. Amputation stump infection, more in the right side. 2 wound dehiscence of right amputation stump. 3. Anemia. 4. Hypothyroidism. 5. History of melanoma. RECOMMENDATIONS: 1. We will continue with cefepime and vancomycin. 2. We will follow wound culture. Subjective ROS Limited/Unobtainable: No Constitutional: Reports: no symptoms Respiratory: Reports: no symptoms Cardiovascular: Reports: no symptoms Gastrointestinal/Abdominal: Reports: no symptoms Musculoskeletal: Reports: pain, other - in leg stumps R>L Allergies: Coded Allergies: No Known Allergies (Unverified , 01/04/17) Objective Vital Signs Last 24 Hour Vital Signs Date Time Temp Pulse Resp B/P (MAP) Pulse Ox O2 Delivery O2 Flow Rate FiO2 12/07/18 12:00 97.8 74 18 100/63 (75) 97 12/07/18 09:09 Room Air 12/07/18 08:00 97.8 65 20 112/53 (72) 97 12/07/18 04:00 97.7 75 19 98/66 (77) 95 12/07/18 00:00 97.6 77 20 99/65 (76) 96 12/06/18 21:00 Room Air 12/06/18 20:00 98.1 74 18 103/63 (76) 95 12/06/18 18:48 98.3 12/06/18 16:00 98.3 72 17 98/58 (71) 96 Height (Feet): 5 Height (Inches): 0.00 Weight (Pounds): 149 General Appearance: no acute distress HEENT: mucous membranes moist Respiratory/Chest: lungs clear Cardiovascular: normal rate, other - left arm PICC line Abdomen: soft, non tender Extremities: no edema Skin: ulcers, other - surgical wound dehiscence in right leg stump, small woud in left stump Neurologic/Psychiatric: alert, oriented x 3, responsive Microbiology Date/Time Source Procedure Growth Status 12/05/18 17:30 Blood Blood Culture - Preliminary NO GROWTH AFTER 24 HOURS Resulted 12/05/18 17:15 Blood Blood Culture - Preliminary NO GROWTH AFTER 24 HOURS Resulted 12/05/18 20:25 Rectum Received Current Medications Medications (Trade) Dose Ordered Sig/Trever Route PRN Reason Start Time Stop Time Status Last Admin Dose Admin Acetaminophen (Tylenol) 500 mg Q8H PRN ORAL Moderate Pain (Pain Scale 4-6) 12/05/18 23:15 01/04/19 23:14 Acetaminophen (Tylenol) 650 mg Q4H PRN ORAL Mild Pain/Temp > 100.5 12/05/18 23:15 01/04/19 23:14 Al Hydroxide/Mg Hydroxide (Mylanta II) 10 ml Q4H PRN ORAL indegestion 12/05/18 23:15 01/04/19 23:14 Bisacodyl (Dulcolax) 10 mg DAILYPRN PRN RECTAL Constipation 12/05/18 23:15 01/04/19 23:14 Cefepime HCl 1 gm/ Dextrose 55 ml @ 110 mls/hr Q24H IVPB 12/06/18 21:00 12/13/18 20:59 12/06/18 22:54 Chlorhexidine Gluconate (Sammie-Hex 2%) 1 applic DAILY@2000 TOPIC 12/06/18 20:00 01/05/19 19:59 12/06/18 20:34 Hydromorphone HCl (Dilaudid) 2 mg Q3H PRN IVP Severe Pain (Pain Scale 7-10) 12/05/18 23:00 12/12/18 22:59 12/07/18 12:39 Levothyroxine Sodium (Synthroid) 200 mcg DAILY@0630 ORAL 12/06/18 06:30 01/05/19 06:29 12/07/18 06:38 Magnesium Hydroxide (Mom) 30 ml DAILYPRN PRN ORAL Constipation 12/05/18 23:15 01/04/19 23:14 Pantoprazole (Protonix) 40 mg DAILY ORAL 12/06/18 09:00 01/05/19 08:59 Sennosides (Senokot) 17.2 mg BEDTIME ORAL 12/06/18 21:00 01/05/19 20:59 12/06/18 20:34 Sodium Hypochlorite (Dakin's Quarter Strength) 1 applic DAILY TOPIC 12/06/18 14:45 01/05/19 14:44 12/07/18 10:24 Temazepam (Restoril) 15 mg HSPRN PRN ORAL Insomnia 12/05/18 23:15 12/12/18 23:14 Temazepam (Restoril) 30 mg HSPRN PRN ORAL Insomnia 12/05/18 23:00 12/12/18 22:59 12/06/18 22:54 Vancomycin HCl (Vanco rx to dose) 1 ea DAILY PRN MISC Per rx protocol 12/06/18 06:15 01/05/19 06:14 Vancomycin HCl 750 mg/Sodium Chloride 275 ml @ 183.333 mls/hr Q24H IVPB 12/06/18 20:00 12/11/18 19:59 12/06/18 20:34 Partha Obrien MD Dec 07, 2018 15:04
--- NOTE | 2018-12-07 15:51 | Surgery Progress Note ---
Surgery Progress Note Subjective Additional Comments Discussed case with Patients ortho surgery Dr. Sweet discussed care plan options with patient at bedside asked Dr. Roldan Plastic surgery who has seen him prior for input patient states he just wants to get better now but does not want any further amputations at this time wound care initiated. Objective Last 24 Hour Vital Signs Date Time Temp Pulse Resp B/P (MAP) Pulse Ox O2 Delivery O2 Flow Rate FiO2 12/07/18 12:00 97.8 74 18 100/63 (75) 97 12/07/18 09:09 Room Air 12/07/18 08:00 97.8 65 20 112/53 (72) 97 12/07/18 04:00 97.7 75 19 98/66 (77) 95 12/07/18 00:00 97.6 77 20 99/65 (76) 96 12/06/18 21:00 Room Air 12/06/18 20:00 98.1 74 18 103/63 (76) 95 12/06/18 18:48 98.3 12/06/18 16:00 98.3 72 17 98/58 (71) 96 I&O Intake and Output 12/06/18 12/07/18 19:00 07:00 Intake Total 240 ml Output Total 600 ml 350 ml Balance -360 ml -350 ml Intake Oral 240 ml Output Urine Total 600 ml 350 ml # Voids 3 2 Dressing: saturated Wound: other Drains: other Cardiovascular: RSR Respiratory: clear Abdomen: soft, flat, non-tender, present bowel sounds Extremities: edema, tenderness, no cyanosis, other Plan Problems: (1) Amputation stump infection Assessment & Plan: bilateral lower extremity below-knee amputations. On the right side the recent revision flap has dehisced and serous purulent drainage identified with viable sutures and palpable bone. On the left side the flap is intact on the medial aspect there is drainage coming from the wound bed in between the barbara. There is an opening on the lateral aspect approximately 2 cm x 2 cm with unknown depth given its location We will currently continue with localized wound care as I discussed with the operating orthopedic surgeon about potential management. I discussed with the patient the current findings and the potential necessity for reoperation versus ray amputation. Versus potential salvage. Continue with IV antibiotics Dakin's wet-to-dry 3 times daily to right amputation stump open flap wound cover with gauze ABD and Kerlix Packing gauze and dressing to left lower extremity BKA wound. 3 times daily With follow with local wound care and evaluation We will discuss with orthopedic and medical team Thank you for allowing participate patient's care (2) Sacral decubitus ulcer Assessment & Plan: This is a 88-year-old male with multiple small full- thickness sacral decubitus ulcers. Patient states that he formed because he was laying flat for 15 days at an outside facility. Identified upon admission and initiated care plan. Periwound seems to have prior healing areas as well as acute inflamed areas with full-thickness breakdown approximately 1 cm x 1 cm on the left buttock/sacral cleft and similarly on the right as well. No active drainage. No foul order. Pt presented on admission with keloid scar with hyperpigmentation sacrum from previous pressure injury;confirmed by pt. Dry loose skin noted to R and L sacrum. No open areas noted. Pt denied tenderness when site palpated. Pt resistive to being repositioned on his sides and was educated of potential risks for already compromised skin to breakdown . Pt demonstrated ability to reposition self when cued.Demonstrated to pt on how to utilize side rails to off -lift buttocks and shift weight in bed. Skin lesions noted to R and L scalp. Pt verbalized he has skin cancer and lesions were recently removed. Hypergranular skin lesions also noted to Lateral L thigh. Apply Moisture Barrier Paste to Sacrum. Cover with Optifoam drsg. Change every 3 days and prn. Encourage and assist with repositioning at least every 2hours or as tolerated.Elevate BKA stumps on pillow. Turn every 2 hours. Patient willing and does assist with ensuring that he turns every so often Offload stump pressures with pillow Thank you for allowing me to participate in patient's care will follow with recommendations (3) Postoperative wound closure planning (4) Stump injury Assessment & Plan: will monitor for now with local wound care will likely need debridement. plan for possible next week with Plastic surgery if decides he would like amputation will be available thank you (5) Infection of amputation stump, right lower extremity Jaiden Teresa Dec 07, 2018 15:51
[2018-12-07 16:19] VITALS: BP 97/54
[2018-12-07 20:00] VITALS: BP 100/57
[2018-12-07] MEDS: Vancomycin 750mg/NS 275ml IVPB SCH ×2 (20:51)
[2018-12-07] MEDS: Sennosides 8.6mg tab ORAL SCH ×2 (20:51→21:00)
[2018-12-07] MEDS: Dyna-Hex 2% Top Sol 2oz TOPIC SCH (20:52)
[2018-12-07] MEDS: Cefepime HCl 1 GM in D5W 55 ML IVPB SCH (22:48)
[2018-12-08] VITALS: BP 113/67
[2018-12-08 06:32] LABS: ANION GAP 5 mmol/L (5-15); BLOOD UREA NITROGEN 17 mg/dL (7-18); CALCIUM 8.4 MG/DL (8.5-10.1); CARBON DIOXIDE 28 MMOL/L (21-32); CHLORIDE 106 MMOL/L (98-107); CREATININE 1.1 MG/DL (0.55-1.30); SODIUM 139 MMOL/L (136-145)
[2018-12-08 07:08] LABS: BASOPHILS % (AUTO) 0.7 % (0.0-2.0); EOSINOPHILS % (AUTO) 5.3 % (0.0-3.0); HEMATOCRIT 30.2 % (42.0-52.0); HEMOGLOBIN 10.1 G/DL (14.2-18.0); LYMPHOCYTES % (AUTO) 28.3 % (20.0-45.0); MEAN CORPUSCULAR VOLUME 95 FL (80-99); MONOCYTES % (AUTO) 6.1 % (1.0-10.0); NEUTROPHILS % (AUTO) 59.7 % (45.0-75.0); PLATELET COUNT 149 K/UL (150-450); RED BLOOD COUNT 3.17 M/UL (4.70-6.10); RED CELL DISTRIBUTION WIDTH 12.8 % (11.6-14.8); WHITE BLOOD COUNT 5.3 K/UL (4.8-10.8)
[2018-12-08 08:00] VITALS: BP 103/69
[2018-12-08] MEDS: Dakin's 0.125% Soln (Quarter Strength) 16oz TOPIC SCH (11:11)
[2018-12-08 12:00] VITALS: BP 109/76
--- NOTE | 2018-12-08 12:08 | Infectious Diseases Prog Note ---
Assessment/Plan Assessment/Plan IMPRESSION: 1. Amputation stump infection, more in the right side. 2 wound dehiscence of right amputation stump. 3. Anemia. 4. Hypothyroidism. 5. History of melanoma. RECOMMENDATIONS: 1. We will continue with cefepime and vancomycin. 2. We will follow wound culture 3. MRI of R leg stump Subjective ROS Limited/Unobtainable: No Constitutional: Reports: no symptoms Respiratory: Reports: no symptoms Gastrointestinal/Abdominal: Reports: no symptoms Genitourinary: Reports: no symptoms Musculoskeletal: Reports: pain, other - in legs stump Allergies: Coded Allergies: No Known Allergies (Unverified , 01/04/17) Objective Vital Signs Last 24 Hour Vital Signs Date Time Temp Pulse Resp B/P (MAP) Pulse Ox O2 Delivery O2 Flow Rate FiO2 12/08/18 09:27 Room Air 12/08/18 08:00 97.0 64 17 103/69 (80) 96 12/08/18 00:00 98.1 74 18 113/67 (82) 94 12/07/18 21:00 Room Air 12/07/18 20:00 97.9 76 20 100/57 (71) 95 12/07/18 16:19 98.8 74 22 97/54 (68) 97 12/07/18 12:00 97.8 74 18 100/63 (75) 97 Height (Feet): 5 Height (Inches): 0.00 Weight (Pounds): 149 General Appearance: no acute distress HEENT: mucous membranes moist Respiratory/Chest: lungs clear Cardiovascular: normal rate Microbiology Date/Time Source Procedure Growth Status 12/05/18 17:30 Blood Blood Culture - Preliminary NO GROWTH AFTER 48 HOURS Resulted 12/05/18 17:15 Blood Blood Culture - Preliminary NO GROWTH AFTER 48 HOURS Resulted 12/06/18 14:00 Wound Gram Stain - Final Resulted 12/06/18 14:00 Wound Culture - Preliminary Gram Negative Bacillus 1 Resulted 12/05/18 20:25 Nasal Nares MRSA Culture - Final NO METHICILLIN RESISTANT STAPH AUREUS... Complete 12/05/18 20:25 Rectum - Final NO CARBAPENEM-RESISTANT ENTEROBACTERI... Complete 12/05/18 20:25 Rectum VRE Culture - Final Enterococcus Faecalis - Vre Complete Laboratory Tests Test 12/08/18 06:00 White Blood Count 5.3 K/UL (4.8-10.8) Red Blood Count 3.17 M/UL (4.70-6.10) L Hemoglobin 10.1 G/DL (14.2-18.0) L Hematocrit 30.2 % (42.0-52.0) L Mean Corpuscular Volume 95 FL (80-99) Mean Corpuscular Hemoglobin 31.8 PG (27.0-31.0) H Mean Corpuscular Hemoglobin Concent 33.4 G/DL (32.0-36.0) Red Cell Distribution Width 12.8 % (11.6-14.8) Platelet Count 149 K/UL (150-450) L Mean Platelet Volume 6.5 FL (6.5-10.1) Neutrophils (%) (Auto) 59.7 % (45.0-75.0) Lymphocytes (%) (Auto) 28.3 % (20.0-45.0) Monocytes (%) (Auto) 6.1 % (1.0-10.0) Eosinophils (%) (Auto) 5.3 % (0.0-3.0) H Basophils (%) (Auto) 0.7 % (0.0-2.0) Erythrocyte Sedimentation Rate 112 MM/HR (0-20) H Prothrombin Time 10.5 SEC (9.30-11.50) Prothromb Time International Ratio 1.0 (0.9-1.1) Activated Partial Thromboplast Time 30 SEC (23-33) Sodium Level 139 MMOL/L (136-145) Potassium Level 4.0 MMOL/L (3.5-5.1) Chloride Level 106 MMOL/L (98-107) Carbon Dioxide Level 28 MMOL/L (21-32) Anion Gap 5 mmol/L (5-15) Blood Urea Nitrogen 17 mg/dL (7-18) Creatinine 1.1 MG/DL (0.55-1.30) Estimat Glomerular Filtration Rate mL/min (>60) Glucose Level 86 MG/DL (74-106) Calcium Level 8.4 MG/DL (8.5-10.1) L C-Reactive Protein, Quantitative 3.1 mg/dL (0.00-0.90) H Current Medications Medications (Trade) Dose Ordered Sig/Trever Route PRN Reason Start Time Stop Time Status Last Admin Dose Admin Acetaminophen (Tylenol) 500 mg Q8H PRN ORAL Moderate Pain (Pain Scale 4-6) 12/05/18 23:15 01/04/19 23:14 Acetaminophen (Tylenol) 650 mg Q4H PRN ORAL Mild Pain/Temp > 100.5 12/05/18 23:15 01/04/19 23:14 Al Hydroxide/Mg Hydroxide (Mylanta II) 10 ml Q4H PRN ORAL indegestion 12/05/18 23:15 01/04/19 23:14 Bisacodyl (Dulcolax) 10 mg DAILYPRN PRN RECTAL Constipation 12/05/18 23:15 01/04/19 23:14 Cefepime HCl 1 gm/ Dextrose 55 ml @ 110 mls/hr Q24H IVPB 12/06/18 21:00 12/13/18 20:59 12/07/18 22:48 Chlorhexidine Gluconate (Sammie-Hex 2%) 1 applic DAILY@2000 TOPIC 12/06/18 20:00 01/05/19 19:59 12/07/18 20:52 Hydromorphone HCl (Dilaudid) 2 mg Q3H PRN IVP Severe Pain (Pain Scale 7-10) 12/05/18 23:00 12/12/18 22:59 12/08/18 09:16 Levothyroxine Sodium (Synthroid) 200 mcg DAILY@0630 ORAL 12/06/18 06:30 01/05/19 06:29 12/08/18 06:03 Magnesium Hydroxide (Mom) 30 ml DAILYPRN PRN ORAL Constipation 12/05/18 23:15 01/04/19 23:14 Pantoprazole (Protonix) 40 mg DAILY ORAL 12/06/18 09:00 01/05/19 08:59 Sennosides (Senokot) 17.2 mg BEDTIME ORAL 12/06/18 21:00 01/05/19 20:59 12/06/18 20:34 Sodium Hypochlorite (Dakin's Quarter Strength) 1 applic DAILY TOPIC 12/06/18 14:45 01/05/19 14:44 12/08/18 11:11 Temazepam (Restoril) 15 mg HSPRN PRN ORAL Insomnia 12/05/18 23:15 12/12/18 23:14 12/08/18 01:13 Temazepam (Restoril) 30 mg HSPRN PRN ORAL Insomnia 12/05/18 23:00 12/12/18 22:59 12/07/18 22:56 Vancomycin HCl (Vanco rx to dose) 1 ea DAILY PRN MISC Per rx protocol 12/06/18 06:15 01/05/19 06:14 Vancomycin HCl 750 mg/Sodium Chloride 275 ml @ 183.333 mls/hr Q24H IVPB 12/06/18 20:00 12/11/18 19:59 12/07/18 20:51 Partha Obrien MD Dec 08, 2018 12:08
--- NOTE | 2018-12-08 14:32 | Diagnostic Imaging Report ---
Indication: Amputation stump infection Technique: MRI of the right Tibia/Fibula was imaged in a 1.5 Gretel magnet. Pulse sequences obtained include multiplanar T1 fast spin-echo and STIR. No intravenous gadolinium given.. Comparison: Plain x-ray 12/06/2018 Findings: X-ray better demonstrates signs of recent surgery with surgical clips barbara at the site of a below the knee amputation. The cortical margin at the tibial stump appears intact both on x-ray and MRI. MRI examination does demonstrate bone marrow edema in the anterior inferior aspect of the tibial stump. Adjacent soft tissue swelling is present. Given recent surgery the soft tissue changes are expected. The bone marrow edema could be reactive marrow edema or due to osteomyelitis. Suspect the former. Similar signal alteration noted within the left tibial stump (left lower extremity partially imaged on this study on the transcoronal sequences). IMPRESSION: Equivocal findings. Osteomyelitis vs. reactive bone marrow edema due to recent surgery and/or cellulitis; reactive edema is favored as the diagnosis. Similar findings in the left tibial stump also noted.
--- NOTE | 2018-12-08 15:00 | Surgery Progress Note ---
Surgery Progress Note Subjective Symptoms: improved, tolerating diet Additional Comments MRI noted appreciate plastic input Objective Last 24 Hour Vital Signs Date Time Temp Pulse Resp B/P (MAP) Pulse Ox O2 Delivery O2 Flow Rate FiO2 12/08/18 12:00 97.4 69 17 109/76 (87) 95 12/08/18 09:27 Room Air 12/08/18 08:00 97.0 64 17 103/69 (80) 96 12/08/18 00:00 98.1 74 18 113/67 (82) 94 12/07/18 21:00 Room Air 12/07/18 20:00 97.9 76 20 100/57 (71) 95 12/07/18 16:19 98.8 74 22 97/54 (68) 97 I&O Intake and Output 12/07/18 12/08/18 18:59 06:59 Intake Total 700 ml 712.666 ml Output Total 450 ml 460 ml Balance 250 ml 252.666 ml Intake Oral 700 ml 236 ml IV Total 476.666 ml Output Urine Total 450 ml 460 ml # Voids 2 # Bowel Movements 2 Dressing: saturated Wound: other Drains: other Cardiovascular: RSR Respiratory: clear Abdomen: soft, non-tender, present bowel sounds Extremities: edema, no cyanosis, other Laboratory Tests Test 12/08/18 06:00 White Blood Count 5.3 K/UL (4.8-10.8) Red Blood Count 3.17 M/UL (4.70-6.10) L Hemoglobin 10.1 G/DL (14.2-18.0) L Hematocrit 30.2 % (42.0-52.0) L Mean Corpuscular Volume 95 FL (80-99) Mean Corpuscular Hemoglobin 31.8 PG (27.0-31.0) H Mean Corpuscular Hemoglobin Concent 33.4 G/DL (32.0-36.0) Red Cell Distribution Width 12.8 % (11.6-14.8) Platelet Count 149 K/UL (150-450) L Mean Platelet Volume 6.5 FL (6.5-10.1) Neutrophils (%) (Auto) 59.7 % (45.0-75.0) Lymphocytes (%) (Auto) 28.3 % (20.0-45.0) Monocytes (%) (Auto) 6.1 % (1.0-10.0) Eosinophils (%) (Auto) 5.3 % (0.0-3.0) H Basophils (%) (Auto) 0.7 % (0.0-2.0) Erythrocyte Sedimentation Rate 112 MM/HR (0-20) H Prothrombin Time 10.5 SEC (9.30-11.50) Prothromb Time International Ratio 1.0 (0.9-1.1) Activated Partial Thromboplast Time 30 SEC (23-33) Sodium Level 139 MMOL/L (136-145) Potassium Level 4.0 MMOL/L (3.5-5.1) Chloride Level 106 MMOL/L (98-107) Carbon Dioxide Level 28 MMOL/L (21-32) Anion Gap 5 mmol/L (5-15) Blood Urea Nitrogen 17 mg/dL (7-18) Creatinine 1.1 MG/DL (0.55-1.30) Estimat Glomerular Filtration Rate mL/min (>60) Glucose Level 86 MG/DL (74-106) Calcium Level 8.4 MG/DL (8.5-10.1) L C-Reactive Protein, Quantitative 3.1 mg/dL (0.00-0.90) H Plan Problems: (1) Amputation stump infection Assessment & Plan: bilateral lower extremity below-knee amputations. On the right side the recent revision flap has dehisced and serous purulent drainage identified with viable sutures and palpable bone. On the left side the flap is intact on the medial aspect there is drainage coming from the wound bed in between the barbara. There is an opening on the lateral aspect approximately 2 cm x 2 cm with unknown depth given its location We will currently continue with localized wound care as I discussed with the operating orthopedic surgeon about potential management. I discussed with the patient the current findings and the potential necessity for reoperation versus ray amputation. Versus potential salvage. Continue with IV antibiotics Dakin's wet-to-dry 3 times daily to right amputation stump open flap wound cover with gauze ABD and Kerlix Packing gauze and dressing to left lower extremity BKA wound. 3 times daily With follow with local wound care and evaluation We will discuss with orthopedic and medical team Thank you for allowing participate patient's care (2) Sacral decubitus ulcer Assessment & Plan: This is a 88-year-old male with multiple small full- thickness sacral decubitus ulcers. Patient states that he formed because he was laying flat for 15 days at an outside facility. Identified upon admission and initiated care plan. Periwound seems to have prior healing areas as well as acute inflamed areas with full-thickness breakdown approximately 1 cm x 1 cm on the left buttock/sacral cleft and similarly on the right as well. No active drainage. No foul order. Pt presented on admission with keloid scar with hyperpigmentation sacrum from previous pressure injury;confirmed by pt. Dry loose skin noted to R and L sacrum. No open areas noted. Pt denied tenderness when site palpated. Pt resistive to being repositioned on his sides and was educated of potential risks for already compromised skin to breakdown . Pt demonstrated ability to reposition self when cued.Demonstrated to pt on how to utilize side rails to off -lift buttocks and shift weight in bed. Skin lesions noted to R and L scalp. Pt verbalized he has skin cancer and lesions were recently removed. Hypergranular skin lesions also noted to Lateral L thigh. Apply Moisture Barrier Paste to Sacrum. Cover with Optifoam drsg. Change every 3 days and prn. Encourage and assist with repositioning at least every 2hours or as tolerated.Elevate BKA stumps on pillow. Turn every 2 hours. Patient willing and does assist with ensuring that he turns every so often Offload stump pressures with pillow Thank you for allowing me to participate in patient's care will follow with recommendations (3) Postoperative wound closure planning (4) Stump injury Assessment & Plan: will monitor for now with local wound care will likely need debridement. plan for possible next week with Plastic surgery if decides he would like amputation will be available Findings: X-ray better demonstrates signs of recent surgery with surgical clips barbara at the site of a below the knee amputation. The cortical margin at the tibial stump appears intact both on x-ray and MRI. MRI examination does demonstrate bone marrow edema in the anterior inferior aspect of the tibial stump. Adjacent soft tissue swelling is present. Given recent surgery the soft tissue changes are expected. The bone marrow edema could be reactive marrow edema or due to osteomyelitis. Suspect the former. Similar signal alteration noted within the left tibial stump (left lower extremity partially imaged on this study on the transcoronal sequences). thank you (5) Infection of amputation stump, right lower extremity Jaiden Teresa Dec 08, 2018 15:00
[2018-12-08 16:00] VITALS: BP 114/67
--- NOTE | 2018-12-08 17:56 | Consultation ---
History of Present Illness General Date patient seen: Dec 07, 2018 Time patient seen: 12:30 Chief Complaint: General Complaint Reason for Consultation: Right bka wound Present Illness HPI Patient is a 88 yom well known to me from the outpatient wound center. He has a h/o b/l BKAs and has had ulcers of the stumps in the past necessitating stump revisions. He underwent another stump revision 2 weeks ago. He developed infection in the right stump leading to dehiscence of the suture line. He was admitted to [facility] [place]. Noted to have infected ulcer of the right stump with bone exposed. He is placed on IV abxs. The wound is being dressed with dakins wet to dry. Allergies: Coded Allergies: No Known Allergies (Unverified , 01/04/17) Medication History Scheduled Levothyroxine Sodium* (Synthroid*), 200 MCG ORAL DAILY, (Reported) Omeprazole (Omeprazole), 40 MG ORAL DAILY, (Reported) Sennosides (Senna Laxative), 17.2 MG PO BEDTIME, (Reported) Temazepam (Restoril*), 45 MG ORAL BEDTIME, (Reported) Trimethoprim/Sulfamethoxazole 160/800* (Bactrim Ds Tablet*), 1 TAB ORAL TWICE A DAY, (Reported) Scheduled PRN Acetaminophen* (Acetaminophen 325MG Tablet*), 650 MG ORAL Q4H PRN for Mild Pain/ Temp > 100.5, (Reported) Acetaminophen* (Acetaminophen Extra Strength*), 500 MG ORAL Q8HR PRN for For Pain, (Reported) Bisacodyl (Bisacodyl), 10 MG RC DAILY PRN for Constipation, (Reported) Hydromorphone HCl/Pf (Dilaudid 2 mg/ml Syringe), 2 MG IJ EVERY 3 HOURS PRN for Severe Pain (Pain Scale 7-10), (Reported) Magnesium Hydroxide* (Milk Of Magnesia*), 30 ML ORAL DAILY PRN for Constipation, (Reported) [Mylanta Ds Liq], 10 ML PO Q4HR PRN for INDIGESTION, (Reported) Discontinued Medications Omeprazole Magnesium (Prilosec Otc), 40 MG ORAL DAILY, (Reported) Discontinued Reason: Prescription changed Oxycodone Hcl Er* (Oxycontin*), 20 MG ORAL DAILY, (Reported) Discontinued Reason: Therapy completed Patient History History Provided By: Patient, Medical Record Healthcare decision maker Resuscitation status Full Code Advanced Directive on File Review of Systems Constitutional: Denies: no symptoms, see HPI, chills, sweats, fever, malaise, weakness, other Skin: Reports: see HPI All Other Systems: negative except mentioned in HPI Physical Exam General Appearance: WD/WN, alert Lines, tubes and drains: PICC Skin Exam: other - Right bka stump wound with slough at the base. Bone is palpable. Multiple ethibond and prolene sutures visible. No erythema or crepitus in perisk. Last 24 Hour Vital Signs Date Time Temp Pulse Resp B/P (MAP) Pulse Ox O2 Delivery O2 Flow Rate FiO2 12/08/18 12:00 97.4 69 17 109/76 (87) 95 12/08/18 09:27 Room Air 12/08/18 08:00 97.0 64 17 103/69 (80) 96 12/08/18 00:00 98.1 74 18 113/67 (82) 94 12/07/18 21:00 Room Air 12/07/18 20:00 97.9 76 20 100/57 (71) 95 Intake and Output 12/07/18 12/08/18 19:00 07:00 Intake Total 700 ml 712.666 ml Output Total 450 ml 460 ml Balance 250 ml 252.666 ml Intake Oral 700 ml 236 ml IV Total 476.666 ml Output Urine Total 450 ml 460 ml # Voids 2 # Bowel Movements 2 Laboratory Tests Test 12/08/18 06:00 White Blood Count 5.3 K/UL (4.8-10.8) Red Blood Count 3.17 M/UL (4.70-6.10) L Hemoglobin 10.1 G/DL (14.2-18.0) L Hematocrit 30.2 % (42.0-52.0) L Mean Corpuscular Volume 95 FL (80-99) Mean Corpuscular Hemoglobin 31.8 PG (27.0-31.0) H Mean Corpuscular Hemoglobin Concent 33.4 G/DL (32.0-36.0) Red Cell Distribution Width 12.8 % (11.6-14.8) Platelet Count 149 K/UL (150-450) L Mean Platelet Volume 6.5 FL (6.5-10.1) Neutrophils (%) (Auto) 59.7 % (45.0-75.0) Lymphocytes (%) (Auto) 28.3 % (20.0-45.0) Monocytes (%) (Auto) 6.1 % (1.0-10.0) Eosinophils (%) (Auto) 5.3 % (0.0-3.0) H Basophils (%) (Auto) 0.7 % (0.0-2.0) Erythrocyte Sedimentation Rate 112 MM/HR (0-20) H Prothrombin Time 10.5 SEC (9.30-11.50) Prothromb Time International Ratio 1.0 (0.9-1.1) Activated Partial Thromboplast Time 30 SEC (23-33) Sodium Level 139 MMOL/L (136-145) Potassium Level 4.0 MMOL/L (3.5-5.1) Chloride Level 106 MMOL/L (98-107) Carbon Dioxide Level 28 MMOL/L (21-32) Anion Gap 5 mmol/L (5-15) Blood Urea Nitrogen 17 mg/dL (7-18) Creatinine 1.1 MG/DL (0.55-1.30) Estimat Glomerular Filtration Rate mL/min (>60) Glucose Level 86 MG/DL (74-106) Calcium Level 8.4 MG/DL (8.5-10.1) L C-Reactive Protein, Quantitative 3.1 mg/dL (0.00-0.90) H Height (Feet): 5 Height (Inches): 0.00 Weight (Pounds): 149 Medications Current Medications Medications (Trade) Dose Ordered Sig/Trever Route PRN Reason Start Time Stop Time Status Last Admin Dose Admin Acetaminophen (Tylenol) 500 mg Q8H PRN ORAL Moderate Pain (Pain Scale 4-6) 12/05/18 23:15 01/04/19 23:14 Acetaminophen (Tylenol) 650 mg Q4H PRN ORAL Mild Pain/Temp > 100.5 12/05/18 23:15 01/04/19 23:14 Al Hydroxide/Mg Hydroxide (Mylanta II) 10 ml Q4H PRN ORAL indegestion 12/05/18 23:15 01/04/19 23:14 Bisacodyl (Dulcolax) 10 mg DAILYPRN PRN RECTAL Constipation 12/05/18 23:15 01/04/19 23:14 Cefepime HCl 1 gm/ Dextrose 55 ml @ 110 mls/hr Q24H IVPB 12/06/18 21:00 12/13/18 20:59 12/07/18 22:48 Chlorhexidine Gluconate (Sammie-Hex 2%) 1 applic DAILY@2000 TOPIC 12/06/18 20:00 01/05/19 19:59 12/07/18 20:52 Hydromorphone HCl (Dilaudid) 2 mg Q3H PRN IVP Severe Pain (Pain Scale 7-10) 12/05/18 23:00 12/12/18 22:59 12/08/18 15:44 Iron Sucrose 100 mg/Sodium Chloride 60 ml @ 240 mls/hr BEDTIME IV 12/08/18 21:00 12/12/18 21:14 Levothyroxine Sodium (Synthroid) 200 mcg DAILY@0630 ORAL 12/06/18 06:30 01/05/19 06:29 12/08/18 06:03 Magnesium Hydroxide (Mom) 30 ml DAILYPRN PRN ORAL Constipation 12/05/18 23:15 01/04/19 23:14 Pantoprazole (Protonix) 40 mg DAILY ORAL 12/06/18 09:00 01/05/19 08:59 Sennosides (Senokot) 17.2 mg BEDTIME ORAL 12/06/18 21:00 01/05/19 20:59 12/06/18 20:34 Sodium Hypochlorite (Dakin's Quarter Strength) 1 applic DAILY TOPIC 12/06/18 14:45 01/05/19 14:44 12/08/18 11:11 Temazepam (Restoril) 15 mg HSPRN PRN ORAL Insomnia 12/05/18 23:15 12/12/18 23:14 12/08/18 01:13 Temazepam (Restoril) 30 mg HSPRN PRN ORAL Insomnia 12/05/18 23:00 12/12/18 22:59 12/07/18 22:56 Vancomycin HCl (Vanco rx to dose) 1 ea DAILY PRN MISC Per rx protocol 12/06/18 06:15 01/05/19 06:14 Vancomycin HCl 750 mg/Sodium Chloride 275 ml @ 183.333 mls/hr Q24H IVPB 12/06/18 20:00 12/11/18 19:59 12/07/18 20:51 Assessment/Plan Status: stable Assessment/Plan: Patient with dehiscence of recent right bka. Patient has two options: 1) Convert to AKA given that his prior stump revisions may have left him with too short of below knee post to tolerate any further attempts to primarily close this wound. 2) perform debridement and perform wound care including a wound vac in conjunction with correction abx to try and secondarily heal this wound. This may end up need ing to be converted to an AKA if hus BKA stump continues to cause problems if and when he goes back into his prosthesis. If patient does not wish to proceed with aka and his infection is controlled with the abx, then can proceed with surgical debridement on 12/11/18. All questions answered. Andrew Roldan MD Dec 08, 2018 17:56
--- NOTE | 2018-12-08 18:26 | General Progress Note ---
Assessment/Plan Status: stable Assessment/Plan: Patient with dehiscence of recent right bka. MRI reviewed. Shows osteo vs reactive 2nd to recent surgery. At this time will tentatively plan to take to OR on 12/11/18 for excisional debridement of the wound. Can start wound vac therapy then shortly thereafter. Discussed the procedure with the patient. Will order consent to be obtained. If he decides to proceed with AKA then will obviously not proceed with debridement. Subjective Date patient seen: Dec 08, 2018 Time patient seen: 18:21 ROS Limited/Unobtainable: Yes Constitutional: Reports: no symptoms Allergies: Coded Allergies: No Known Allergies (Unverified , 01/04/17) Subjective F/u eval on patient with right bka stump wound. He has no new complaints. Had an MRI today. Continuing on iv abx Objective Last 24 Hour Vital Signs Date Time Temp Pulse Resp B/P (MAP) Pulse Ox O2 Delivery O2 Flow Rate FiO2 12/08/18 12:00 97.4 69 17 109/76 (87) 95 12/08/18 09:27 Room Air 12/08/18 08:00 97.0 64 17 103/69 (80) 96 12/08/18 00:00 98.1 74 18 113/67 (82) 94 12/07/18 21:00 Room Air 12/07/18 20:00 97.9 76 20 100/57 (71) 95 Intake and Output 12/07/18 12/08/18 19:00 07:00 Intake Total 700 ml 712.666 ml Output Total 450 ml 460 ml Balance 250 ml 252.666 ml Intake Oral 700 ml 236 ml IV Total 476.666 ml Output Urine Total 450 ml 460 ml # Voids 2 # Bowel Movements 2 Laboratory Tests 12/08/18 06:00: White Blood Count 5.3, Red Blood Count 3.17L, Hemoglobin 10.1L, Hematocrit 30.2L , Mean Corpuscular Volume 95, Mean Corpuscular Hemoglobin 31.8H, Mean Corpuscular Hemoglobin Concent 33.4, Red Cell Distribution Width 12.8, Platelet Count 149L, Mean Platelet Volume 6.5, Neutrophils (%) (Auto) 59.7, Lymphocytes ( %) (Auto) 28.3, Monocytes (%) (Auto) 6.1, Eosinophils (%) (Auto) 5.3H, Basophils (%) (Auto) 0.7, Erythrocyte Sedimentation Rate 112H, Prothrombin Time 10.5, Prothromb Time International Ratio 1.0, Activated Partial Thromboplast Time 30, Sodium Level 139, Potassium Level 4.0, Chloride Level 106, Carbon Dioxide Level 28, Anion Gap 5, Blood Urea Nitrogen 17, Creatinine 1.1, Estimat Glomerular Filtration Rate , Glucose Level 86, Calcium Level 8.4L, C-Reactive Protein, Quantitative 3.1H Height (Feet): 5 Height (Inches): 0.00 Weight (Pounds): 149 General Appearance: WD/WN, no apparent distress, alert Andrew Roldan MD Dec 08, 2018 18:26
[2018-12-08 20:00] VITALS: BP 108/69
[2018-12-08] MEDS: Dyna-Hex 2% Top Sol 2oz TOPIC SCH (20:00)
[2018-12-08] MEDS: Sennosides 8.6mg tab ORAL SCH (21:00)
[2018-12-08] MEDS: Iron Sucrose 100 MG in NS 55 ML IV SCH (21:13)
[2018-12-08] MEDS: Cefepime HCl 1 GM in D5W 55 ML IVPB SCH (21:13)
[2018-12-08] MEDS: Vancomycin 1.25gm/NS Premix q24h IVPB SCH (22:19)
--- NOTE | 2018-12-08 22:33 | General Progress Note ---
Assessment/Plan Problem List: (1) Leg pain ICD Codes: M79.606 - Leg pain SNOMED: 98588079 (2) Anemia ICD Codes: D64.9 - Anemia, unspecified SNOMED: 073107063 (3) Amputation stump infection ICD Codes: T87.40 - Infection of amputation stump, unspecified extremity SNOMED: 530944066 (4) Postoperative wound closure planning ICD Codes: Z48.1 - Encounter for planned postprocedural wound closure SNOMED: 952998943 (5) Stump injury ICD Codes: T14.8 - Other injury of unspecified body region SNOMED: 124495179 (6) Infection of amputation stump, right lower extremity ICD Codes: T87.43 - Infection of amputation stump, right lower extremity SNOMED: 413778185, 582201507 Status: stable, progressing Assessment/Plan: stump site wound dehiscence and infection I&d per dr bruce continue iv abx afebrile Subjective ROS Limited/Unobtainable: Yes Allergies: Coded Allergies: No Known Allergies (Unverified , 01/04/17) Objective Last 24 Hour Vital Signs Date Time Temp Pulse Resp B/P (MAP) Pulse Ox O2 Delivery O2 Flow Rate FiO2 12/08/18 20:00 98.3 77 18 108/69 (82) 96 12/08/18 16:00 98.4 74 19 114/67 (83) 97 12/08/18 12:00 97.4 69 17 109/76 (87) 95 12/08/18 09:27 Room Air 12/08/18 08:00 97.0 64 17 103/69 (80) 96 12/08/18 00:00 98.1 74 18 113/67 (82) 94 Intake and Output 12/07/18 12/08/18 19:00 07:00 Intake Total 700 ml 712.666 ml Output Total 450 ml 460 ml Balance 250 ml 252.666 ml Intake Oral 700 ml 236 ml IV Total 476.666 ml Output Urine Total 450 ml 460 ml # Voids 2 # Bowel Movements 2 Laboratory Tests 12/08/18 06:00: White Blood Count 5.3, Red Blood Count 3.17L, Hemoglobin 10.1L, Hematocrit 30.2L , Mean Corpuscular Volume 95, Mean Corpuscular Hemoglobin 31.8H, Mean Corpuscular Hemoglobin Concent 33.4, Red Cell Distribution Width 12.8, Platelet Count 149L, Mean Platelet Volume 6.5, Neutrophils (%) (Auto) 59.7, Lymphocytes ( %) (Auto) 28.3, Monocytes (%) (Auto) 6.1, Eosinophils (%) (Auto) 5.3H, Basophils (%) (Auto) 0.7, Erythrocyte Sedimentation Rate 112H, Prothrombin Time 10.5, Prothromb Time International Ratio 1.0, Activated Partial Thromboplast Time 30, Sodium Level 139, Potassium Level 4.0, Chloride Level 106, Carbon Dioxide Level 28, Anion Gap 5, Blood Urea Nitrogen 17, Creatinine 1.1, Estimat Glomerular Filtration Rate , Glucose Level 86, Calcium Level 8.4L, C-Reactive Protein, Quantitative 3.1H 12/08/18 19:35: Vancomycin Level Trough 9.0 Height (Feet): 5 Height (Inches): 0.00 Weight (Pounds): 149 Cardiovascular: regular rhythm Respiratory/Chest: lungs clear Abdomen: soft Rossy Samuel MD Dec 08, 2018 22:33
[2018-12-09] VITALS: BP 93/55
[2018-12-09 04:00] VITALS: BP 108/64
[2018-12-09 06:51] LABS: BASOPHILS % (AUTO) 1.1 % (0.0-2.0); EOSINOPHILS % (AUTO) 5.3 % (0.0-3.0); HEMATOCRIT 30.1 % (42.0-52.0); HEMOGLOBIN 9.9 G/DL (14.2-18.0); LYMPHOCYTES % (AUTO) 25.9 % (20.0-45.0); MEAN CORPUSCULAR VOLUME 96 FL (80-99); MONOCYTES % (AUTO) 6.3 % (1.0-10.0); NEUTROPHILS % (AUTO) 61.4 % (45.0-75.0); PLATELET COUNT 154 K/UL (150-450); RED BLOOD COUNT 3.15 M/UL (4.70-6.10); RED CELL DISTRIBUTION WIDTH 12.9 % (11.6-14.8); WHITE BLOOD COUNT 5.1 K/UL (4.8-10.8)
[2018-12-09 08:00] VITALS: BP 113/69
--- NOTE | 2018-12-09 09:13 | Hematology/Onc Progress Note ---
Assessment/Plan Assessment/Plan IMPRESSION/RECS: # Anemia due to underlying iron deficiency, r/o gi bleed - also with multifactorial component --> anemia panel reviewed and noted with Iron def --> has been started on iv iron x 5 day course --> hgb transfuse if hgb lower than 7 --> hgb trend 10.6-->10.1-->9.9 # History of melanoma. --> currently in remission # Amputation stump infection, more in the right side. --> on cefepime/vanc--> leva/vanc --> as per id recs --> surg, pod recs # Wound dehiscence of right amputation stump. --> eval with surg, pod # Hypothyroidism. --> started on synthroid # Dvt ppx consider lovenox if h/h stable Time of note does not necessarily correspond to when patient seen Greatly appreciate consultation. Subjective Constitutional: Denies: no symptoms, chills, fever, malaise, weakness, other HEENT: Denies: no symptoms, eye pain, blurred vision, tearing, double vision, ear pain, ear discharge, nose pain, nose congestion, throat pain, throat swelling, mouth pain, mouth swelling, other Cardiovascular: Denies: no symptoms, chest pain, edema, irregular heart rate, lightheadedness, palpitations, syncope, other Respiratory: Denies: no symptoms, cough, shortness of breath, SOB with excertion, SOB at rest, sputum, wheezing, other Gastrointestinal/Abdominal: Denies: no symptoms, abdomen distended, abdominal pain, black stools, tarry stools, blood in stool, constipated, diarrhea, difficulty swallowing, nausea, poor appetite, poor fluid intake, rectal bleeding , vomiting, other Genitourinary: Denies: no symptoms, burning, discharge, frequency, flank pain, hematuria, incontinence, pain, urgency, other Neurologic/Psychiatric: Denies: no symptoms, anxiety, depressed, emotional problems, headache, numbness, paresthesia, pre-existing deficit, seizure, tingling, tremors, weakness, other Allergies: Coded Allergies: No Known Allergies (Unverified , 01/04/17) Subjective 12/09: no events, remains on abx, has been started on iv iron, hgb 9.9 Objective Objective Current Medications Medications (Trade) Dose Ordered Sig/Trever Route PRN Reason Start Time Stop Time Status Last Admin Dose Admin Acetaminophen (Tylenol) 500 mg Q8H PRN ORAL Moderate Pain (Pain Scale 4-6) 12/05/18 23:15 01/04/19 23:14 Acetaminophen (Tylenol) 650 mg Q4H PRN ORAL Mild Pain/Temp > 100.5 12/05/18 23:15 01/04/19 23:14 Al Hydroxide/Mg Hydroxide (Mylanta II) 10 ml Q4H PRN ORAL indegestion 12/05/18 23:15 01/04/19 23:14 Bisacodyl (Dulcolax) 10 mg DAILYPRN PRN RECTAL Constipation 12/05/18 23:15 01/04/19 23:14 Chlorhexidine Gluconate (Sammie-Hex 2%) 1 applic DAILY@1999 TOPIC 12/06/18 20:00 01/05/19 19:59 12/07/18 20:52 Hydromorphone HCl (Dilaudid) 2 mg Q3H PRN IVP Severe Pain (Pain Scale 7-10) 12/05/18 23:00 12/12/18 22:59 12/09/18 05:28 Iron Sucrose 100 mg/Sodium Chloride 60 ml @ 240 mls/hr BEDTIME IV 12/08/18 21:00 12/12/18 21:14 12/08/18 21:13 Levofloxacin (Levaquin) 750 mg Q48H ORAL 12/09/18 09:00 12/16/18 08:59 Levothyroxine Sodium (Synthroid) 200 mcg DAILY@0630 ORAL 12/06/18 06:30 01/05/19 06:29 12/09/18 06:48 Magnesium Hydroxide (Mom) 30 ml DAILYPRN PRN ORAL Constipation 12/05/18 23:15 01/04/19 23:14 Pantoprazole (Protonix) 40 mg DAILY ORAL 12/06/18 09:00 01/05/19 08:59 Sennosides (Senokot) 17.2 mg BEDTIME ORAL 12/06/18 21:00 01/05/19 20:59 12/06/18 20:34 Sodium Hypochlorite (Dakin's Quarter Strength) 1 applic DAILY TOPIC 12/06/18 14:45 01/05/19 14:44 12/08/18 11:11 Temazepam (Restoril) 15 mg HSPRN PRN ORAL Insomnia 12/05/18 23:15 12/12/18 23:14 12/09/18 03:07 Temazepam (Restoril) 30 mg HSPRN PRN ORAL Insomnia 12/05/18 23:00 12/12/18 22:59 12/08/18 21:13 Vancomycin HCl (Vanco rx to dose) 1 ea DAILY PRN MISC Per rx protocol 12/06/18 06:15 01/05/19 06:14 Vancomycin/Sodium Chloride 275 ml @ 183.333 mls/hr Q24H IVPB 12/08/18 22:00 12/13/18 21:59 12/08/18 22:19 Last 24 Hour Vital Signs Date Time Temp Pulse Resp B/P (MAP) Pulse Ox O2 Delivery O2 Flow Rate FiO2 12/09/18 08:00 97.7 69 16 113/69 (84) 96 12/09/18 04:00 98.0 71 18 108/64 (79) 98 12/09/18 00:00 97.0 71 18 93/55 (68) 95 12/08/18 21:00 Room Air 12/08/18 20:00 98.3 77 18 108/69 (82) 96 12/08/18 16:00 98.4 74 19 114/67 (83) 97 12/08/18 12:00 97.4 69 17 109/76 (87) 95 12/08/18 09:27 Room Air 12/08/18 08:00 97.0 64 17 103/69 (80) 96 12/08/18 00:00 98.1 74 18 113/67 (82) 94 12/07/18 21:00 Room Air 12/07/18 20:00 97.9 76 20 100/57 (71) 95 12/07/18 16:19 98.8 74 22 97/54 (68) 97 12/07/18 12:00 97.8 74 18 100/63 (75) 97 12/07/18 09:09 Room Air Intake and Output 12/08/18 12/09/18 19:00 07:00 Intake Total 2952.666 ml Output Total 600 ml Balance 2352.666 ml Intake Oral 236 ml IV Total 716.666 ml Other 2000 ml Output Urine Total 600 ml # Voids 2 # Bowel Movements 1 5 Labs Test 12/06/18 09:44 12/08/18 06:00 12/08/18 19:35 12/09/18 06:00 Iron Level 66 ug/dL (50-175) Total Iron Binding Capacity 254 ug/dL (250-450) Percent Iron Saturation 26 % (15-50) Unsaturated Iron Binding 188 ug/dL (112-346) Vitamin B12 Level 262 PG/ML (193-986) Folate 16.1 NG/ML (8.6-58.9) White Blood Count 5.3 K/UL (4.8-10.8) 5.1 K/UL (4.8-10.8) Red Blood Count 3.17 M/UL (4.70-6.10) 3.15 M/UL (4.70-6.10) Hemoglobin 10.1 G/DL (14.2-18.0) 9.9 G/DL (14.2-18.0) Hematocrit 30.2 % (42.0-52.0) 30.1 % (42.0-52.0) Mean Corpuscular Volume 95 FL (80-99) 96 FL (80-99) Mean Corpuscular Hemoglobin 31.8 PG (27.0-31.0) 31.4 PG (27.0-31.0) Mean Corpuscular Hemoglobin Concent 33.4 G/DL (32.0-36.0) 32.9 G/DL (32.0-36.0) Red Cell Distribution Width 12.8 % (11.6-14.8) 12.9 % (11.6-14.8) Platelet Count 149 K/UL (150-450) 154 K/UL (150-450) Mean Platelet Volume 6.5 FL (6.5-10.1) 6.7 FL (6.5-10.1) Neutrophils (%) (Auto) 59.7 % (45.0-75.0) 61.4 % (45.0-75.0) Lymphocytes (%) (Auto) 28.3 % (20.0-45.0) 25.9 % (20.0-45.0) Monocytes (%) (Auto) 6.1 % (1.0-10.0) 6.3 % (1.0-10.0) Eosinophils (%) (Auto) 5.3 % (0.0-3.0) 5.3 % (0.0-3.0) Basophils (%) (Auto) 0.7 % (0.0-2.0) 1.1 % (0.0-2.0) Erythrocyte Sedimentation Rate 112 MM/HR (0-20) Prothrombin Time 10.5 SEC (9.30-11.50) Prothromb Time International Ratio 1.0 (0.9-1.1) Activated Partial Thromboplast Time 30 SEC (23-33) Sodium Level 139 MMOL/L (136-145) Potassium Level 4.0 MMOL/L (3.5-5.1) Chloride Level 106 MMOL/L (98-107) Carbon Dioxide Level 28 MMOL/L (21-32) Anion Gap 5 mmol/L (5-15) Blood Urea Nitrogen 17 mg/dL (7-18) Creatinine 1.1 MG/DL (0.55-1.30) Estimat Glomerular Filtration Rate mL/min (>60) Glucose Level 86 MG/DL (74-106) Calcium Level 8.4 MG/DL (8.5-10.1) C-Reactive Protein, Quantitative 3.1 mg/dL (0.00-0.90) Vancomycin Level Trough 9.0 ug/mL (5.0-12.0) Height (Feet): 5 Height (Inches): 0.00 Weight (Pounds): 149 Objective Gen: Nad Pulm: Ctab CV: rrr, no mgr Abd: soft, nt, nd Ext: b/l nka noted, dressings+ Oseas Tong MD Dec 09, 2018 09:13
[2018-12-09] MEDS: Levofloxacin 750mg tab ORAL SCH (09:16)
--- NOTE | 2018-12-09 10:22 | General Progress Note ---
Assessment/Plan Problem List: (1) Anemia ICD Codes: D64.9 - Anemia, unspecified SNOMED: 388320990 (2) Amputation stump infection ICD Codes: T87.40 - Infection of amputation stump, unspecified extremity SNOMED: 828610133 (3) Stump injury ICD Codes: T14.8 - Other injury of unspecified body region SNOMED: 395166546 (4) Postoperative wound closure planning ICD Codes: Z48.1 - Encounter for planned postprocedural wound closure SNOMED: 233334367 (5) Infection of amputation stump, right lower extremity ICD Codes: T87.43 - Infection of amputation stump, right lower extremity SNOMED: 342441223, 703226220 Status: stable, progressing Assessment/Plan: wound care abx pain control cbc bmp am Subjective Constitutional: Reports: weakness Allergies: Coded Allergies: No Known Allergies (Unverified , 01/04/17) All Systems: reviewed and negative except above Subjective sleepy calm Objective Last 24 Hour Vital Signs Date Time Temp Pulse Resp B/P (MAP) Pulse Ox O2 Delivery O2 Flow Rate FiO2 12/09/18 08:00 97.7 69 16 113/69 (84) 96 12/09/18 04:00 98.0 71 18 108/64 (79) 98 12/09/18 00:00 97.0 71 18 93/55 (68) 95 12/08/18 21:00 Room Air 12/08/18 20:00 98.3 77 18 108/69 (82) 96 12/08/18 16:00 98.4 74 19 114/67 (83) 97 12/08/18 12:00 97.4 69 17 109/76 (87) 95 Intake and Output 12/08/18 12/09/18 19:00 07:00 Intake Total 2952.666 ml Output Total 600 ml Balance 2352.666 ml Intake Oral 236 ml IV Total 716.666 ml Other 2000 ml Output Urine Total 600 ml # Voids 2 # Bowel Movements 1 5 Laboratory Tests 12/08/18 19:35: Vancomycin Level Trough 9.0 12/09/18 06:00: White Blood Count 5.1, Red Blood Count 3.15L, Hemoglobin 9.9L, Hematocrit 30.1L , Mean Corpuscular Volume 96, Mean Corpuscular Hemoglobin 31.4H, Mean Corpuscular Hemoglobin Concent 32.9, Red Cell Distribution Width 12.9, Platelet Count 154, Mean Platelet Volume 6.7, Neutrophils (%) (Auto) 61.4, Lymphocytes (% ) (Auto) 25.9, Monocytes (%) (Auto) 6.3, Eosinophils (%) (Auto) 5.3H, Basophils (%) (Auto) 1.1 Height (Feet): 5 Height (Inches): 0.00 Weight (Pounds): 149 General Appearance: lethargic EENT: normal ENT inspection Neck: normal alignment Cardiovascular: normal peripheral pulses, normal rate, regular rhythm Respiratory/Chest: chest wall non-tender, lungs clear, normal breath sounds Abdomen: normal bowel sounds, non tender, soft Extremities: normal inspection Edema: no edema noted Arm (L), no edema noted Arm (R), no edema noted Leg (L), no edema noted Leg (R), no edema noted Pedal (L), no edema noted Pedal (R), no edema noted Generalized Neurologic: motor weakness Skin: normal pigmentation, warm/dry Toi Jeff DO Dec 09, 2018 10:22
--- NOTE | 2018-12-09 10:22 | Surgery Progress Note ---
Surgery Progress Note Subjective Additional Comments Patient seen and examined bedside. No acute events. Resting comfortably. Labs noted. Exam stable. Dressings going well. Objective Last 24 Hour Vital Signs Date Time Temp Pulse Resp B/P (MAP) Pulse Ox O2 Delivery O2 Flow Rate FiO2 12/09/18 08:00 97.7 69 16 113/69 (84) 96 12/09/18 04:00 98.0 71 18 108/64 (79) 98 12/09/18 00:00 97.0 71 18 93/55 (68) 95 12/08/18 21:00 Room Air 12/08/18 20:00 98.3 77 18 108/69 (82) 96 12/08/18 16:00 98.4 74 19 114/67 (83) 97 12/08/18 12:00 97.4 69 17 109/76 (87) 95 I&O Intake and Output 12/08/18 12/09/18 19:00 07:00 Intake Total 2952.666 ml Output Total 600 ml Balance 2352.666 ml Intake Oral 236 ml IV Total 716.666 ml Other 2000 ml Output Urine Total 600 ml # Voids 2 # Bowel Movements 1 5 Dressing: saturated Wound: other Drains: other Cardiovascular: RSR Respiratory: clear Abdomen: soft, non-tender, present bowel sounds, non-distended Extremities: edema, tenderness, other Laboratory Tests Test 12/08/18 19:35 12/09/18 06:00 Vancomycin Level Trough 9.0 ug/mL (5.0-12.0) White Blood Count 5.1 K/UL (4.8-10.8) Red Blood Count 3.15 M/UL (4.70-6.10) L Hemoglobin 9.9 G/DL (14.2-18.0) L Hematocrit 30.1 % (42.0-52.0) L Mean Corpuscular Volume 96 FL (80-99) Mean Corpuscular Hemoglobin 31.4 PG (27.0-31.0) H Mean Corpuscular Hemoglobin Concent 32.9 G/DL (32.0-36.0) Red Cell Distribution Width 12.9 % (11.6-14.8) Platelet Count 154 K/UL (150-450) Mean Platelet Volume 6.7 FL (6.5-10.1) Neutrophils (%) (Auto) 61.4 % (45.0-75.0) Lymphocytes (%) (Auto) 25.9 % (20.0-45.0) Monocytes (%) (Auto) 6.3 % (1.0-10.0) Eosinophils (%) (Auto) 5.3 % (0.0-3.0) H Basophils (%) (Auto) 1.1 % (0.0-2.0) Plan Problems: (1) Amputation stump infection Assessment & Plan: bilateral lower extremity below-knee amputations. On the right side the recent revision flap has dehisced and serous purulent drainage identified with viable sutures and palpable bone. On the left side the flap is intact on the medial aspect there is drainage coming from the wound bed in between the barbara. There is an opening on the lateral aspect approximately 2 cm x 2 cm with unknown depth given its location We will currently continue with localized wound care as I discussed with the operating orthopedic surgeon about potential management. I discussed with the patient the current findings and the potential necessity for reoperation versus ray amputation. Versus potential salvage. Continue with IV antibiotics Dakin's wet-to-dry 3 times daily to right amputation stump open flap wound cover with gauze ABD and Kerlix Packing gauze and dressing to left lower extremity BKA wound. 3 times daily With follow with local wound care and evaluation We will discuss with orthopedic and medical team Thank you for allowing participate patient's care (2) Sacral decubitus ulcer Assessment & Plan: This is a 88-year-old male with multiple small full- thickness sacral decubitus ulcers. Patient states that he formed because he was laying flat for 15 days at an outside facility. Identified upon admission and initiated care plan. Periwound seems to have prior healing areas as well as acute inflamed areas with full-thickness breakdown approximately 1 cm x 1 cm on the left buttock/sacral cleft and similarly on the right as well. No active drainage. No foul order. Pt presented on admission with keloid scar with hyperpigmentation sacrum from previous pressure injury;confirmed by pt. Dry loose skin noted to R and L sacrum. No open areas noted. Pt denied tenderness when site palpated. Pt resistive to being repositioned on his sides and was educated of potential risks for already compromised skin to breakdown . Pt demonstrated ability to reposition self when cued.Demonstrated to pt on how to utilize side rails to off -lift buttocks and shift weight in bed. Skin lesions noted to R and L scalp. Pt verbalized he has skin cancer and lesions were recently removed. Hypergranular skin lesions also noted to Lateral L thigh. Apply Moisture Barrier Paste to Sacrum. Cover with Optifoam drsg. Change every 3 days and prn. Encourage and assist with repositioning at least every 2hours or as tolerated.Elevate BKA stumps on pillow. Turn every 2 hours. Patient willing and does assist with ensuring that he turns every so often Offload stump pressures with pillow Thank you for allowing me to participate in patient's care will follow with recommendations (3) Postoperative wound closure planning (4) Stump injury Assessment & Plan: will monitor for now with local wound care will likely need debridement. plan for possible next week with Plastic surgery if decides he would like amputation will be available Findings: X-ray better demonstrates signs of recent surgery with surgical clips barbara at the site of a below the knee amputation. The cortical margin at the tibial stump appears intact both on x-ray and MRI. MRI examination does demonstrate bone marrow edema in the anterior inferior aspect of the tibial stump. Adjacent soft tissue swelling is present. Given recent surgery the soft tissue changes are expected. The bone marrow edema could be reactive marrow edema or due to osteomyelitis. Suspect the former. Similar signal alteration noted within the left tibial stump (left lower extremity partially imaged on this study on the transcoronal sequences). thank you (5) Infection of amputation stump, right lower extremity Jaiden Teresa Dec 09, 2018 10:22
[2018-12-09 12:00] VITALS: BP 104/68
[2018-12-09] MEDS: Dakin's 0.125% Soln (Quarter Strength) 16oz TOPIC SCH (13:30)
[2018-12-09 16:00] VITALS: BP 101/65
[2018-12-09 20:00] VITALS: BP_SYST 100; BP_SYST 148; BP_DIAS 59; BP_DIAS 77
[2018-12-09] MEDS: Dyna-Hex 2% Top Sol 2oz TOPIC SCH (20:23)
[2018-12-09] MEDS: Sennosides 8.6mg tab ORAL SCH (20:24)
[2018-12-09] MEDS: Iron Sucrose 100 MG in NS 55 ML IV SCH (20:24)
[2018-12-09] MEDS: Vancomycin 1.25gm/NS Premix q24h IVPB SCH (21:21)
[2018-12-10] VITALS: BP 97/59
[2018-12-10 04:00] VITALS: BP 100/65
[2018-12-10 08:38] VITALS: BP 110/71
--- NOTE | 2018-12-10 09:44 | Surgery Progress Note ---
Surgery Progress Note Subjective Additional Comments no acute events comfortable stable looking forward for tomorrow with plastic surgery interventin Objective Last 24 Hour Vital Signs Date Time Temp Pulse Resp B/P (MAP) Pulse Ox O2 Delivery O2 Flow Rate FiO2 12/10/18 08:38 96.8 71 18 110/71 (84) 98 12/10/18 04:00 97.5 67 20 100/65 (77) 99 12/10/18 00:00 98.0 71 18 97/59 (72) 95 12/09/18 21:00 Room Air 12/09/18 20:00 98.6 78 18 100/59 (73) 95 12/09/18 16:00 98.1 18 101/65 (77) 97 12/09/18 12:00 97.0 18 104/68 (80) 96 I&O Intake and Output 12/09/18 12/10/18 19:00 07:00 Intake Total 240 ml 1846.666 ml Output Total 200 ml 200 ml Balance 40 ml 1646.666 ml Intake Oral 240 ml 240 ml IV Total 606.666 ml Other 1000 ml Output Urine Total 200 ml 200 ml # Voids 2 # Bowel Movements 1 2 Dressing: saturated Wound: other Drains: other Cardiovascular: RSR Respiratory: clear Abdomen: soft, flat, non-tender, present bowel sounds Extremities: no cyanosis, other Plan Problems: (1) Amputation stump infection Assessment & Plan: bilateral lower extremity below-knee amputations. On the right side the recent revision flap has dehisced and serous purulent drainage identified with viable sutures and palpable bone. On the left side the flap is intact on the medial aspect there is drainage coming from the wound bed in between the barbara. There is an opening on the lateral aspect approximately 2 cm x 2 cm with unknown depth given its location We will currently continue with localized wound care as I discussed with the operating orthopedic surgeon about potential management. I discussed with the patient the current findings and the potential necessity for reoperation versus ray amputation. Versus potential salvage. Continue with IV antibiotics Dakin's wet-to-dry 3 times daily to right amputation stump open flap wound cover with gauze ABD and Kerlix Packing gauze and dressing to left lower extremity BKA wound. 3 times daily With follow with local wound care and evaluation We will discuss with orthopedic and medical team Thank you for allowing participate patient's care (2) Sacral decubitus ulcer Assessment & Plan: This is a 88-year-old male with multiple small full- thickness sacral decubitus ulcers. Patient states that he formed because he was laying flat for 15 days at an outside facility. Identified upon admission and initiated care plan. Periwound seems to have prior healing areas as well as acute inflamed areas with full-thickness breakdown approximately 1 cm x 1 cm on the left buttock/sacral cleft and similarly on the right as well. No active drainage. No foul order. Pt presented on admission with keloid scar with hyperpigmentation sacrum from previous pressure injury;confirmed by pt. Dry loose skin noted to R and L sacrum. No open areas noted. Pt denied tenderness when site palpated. Pt resistive to being repositioned on his sides and was educated of potential risks for already compromised skin to breakdown . Pt demonstrated ability to reposition self when cued.Demonstrated to pt on how to utilize side rails to off -lift buttocks and shift weight in bed. Skin lesions noted to R and L scalp. Pt verbalized he has skin cancer and lesions were recently removed. Hypergranular skin lesions also noted to Lateral L thigh. Apply Moisture Barrier Paste to Sacrum. Cover with Optifoam drsg. Change every 3 days and prn. Encourage and assist with repositioning at least every 2hours or as tolerated.Elevate BKA stumps on pillow. Turn every 2 hours. Patient willing and does assist with ensuring that he turns every so often Offload stump pressures with pillow Thank you for allowing me to participate in patient's care will follow with recommendations (3) Postoperative wound closure planning (4) Stump injury Assessment & Plan: will monitor for now with local wound care will likely need debridement. plan for possible next week with Plastic surgery if decides he would like amputation will be available Findings: X-ray better demonstrates signs of recent surgery with surgical clips barbara at the site of a below the knee amputation. The cortical margin at the tibial stump appears intact both on x-ray and MRI. MRI examination does demonstrate bone marrow edema in the anterior inferior aspect of the tibial stump. Adjacent soft tissue swelling is present. Given recent surgery the soft tissue changes are expected. The bone marrow edema could be reactive marrow edema or due to osteomyelitis. Suspect the former. Similar signal alteration noted within the left tibial stump (left lower extremity partially imaged on this study on the transcoronal sequences). thank you (5) Infection of amputation stump, right lower extremity Additional Comments npo p mn iv fluids cont abx plan for OR tomorrow with Jaiden Aragon Dec 10, 2018 09:44
--- NOTE | 2018-12-10 10:19 | General Progress Note ---
Assessment/Plan Problem List: (1) Anemia ICD Codes: D64.9 - Anemia, unspecified SNOMED: 196055129 (2) Amputation stump infection ICD Codes: T87.40 - Infection of amputation stump, unspecified extremity SNOMED: 443371469 (3) Stump injury ICD Codes: T14.8 - Other injury of unspecified body region SNOMED: 150171263 (4) Postoperative wound closure planning ICD Codes: Z48.1 - Encounter for planned postprocedural wound closure SNOMED: 689551747 (5) Infection of amputation stump, right lower extremity ICD Codes: T87.43 - Infection of amputation stump, right lower extremity SNOMED: 227609114, 593824776 Status: stable, progressing Assessment/Plan: wound care abx pain control cbc bmp am Subjective Constitutional: Reports: weakness Allergies: Coded Allergies: No Known Allergies (Unverified , 01/04/17) All Systems: reviewed and negative except above Subjective sleepy calm Objective Last 24 Hour Vital Signs Date Time Temp Pulse Resp B/P (MAP) Pulse Ox O2 Delivery O2 Flow Rate FiO2 12/10/18 08:38 96.8 71 18 110/71 (84) 98 12/10/18 04:00 97.5 67 20 100/65 (77) 99 12/10/18 00:00 98.0 71 18 97/59 (72) 95 12/09/18 21:00 Room Air 12/09/18 20:00 98.6 78 18 100/59 (73) 95 12/09/18 16:00 98.1 18 101/65 (77) 97 12/09/18 12:00 97.0 18 104/68 (80) 96 Intake and Output 12/09/18 12/10/18 19:00 07:00 Intake Total 240 ml 1846.666 ml Output Total 200 ml 200 ml Balance 40 ml 1646.666 ml Intake Oral 240 ml 240 ml IV Total 606.666 ml Other 1000 ml Output Urine Total 200 ml 200 ml # Voids 2 # Bowel Movements 1 2 Height (Feet): 5 Height (Inches): 0.00 Weight (Pounds): 149 General Appearance: lethargic EENT: normal ENT inspection Neck: normal alignment Cardiovascular: normal peripheral pulses, normal rate, regular rhythm Respiratory/Chest: chest wall non-tender, lungs clear, normal breath sounds Abdomen: normal bowel sounds, non tender, soft Extremities: normal inspection Edema: no edema noted Arm (L), no edema noted Arm (R), no edema noted Leg (L), no edema noted Leg (R), no edema noted Pedal (L), no edema noted Pedal (R), no edema noted Generalized Neurologic: motor weakness Skin: normal pigmentation, warm/dry Toi Jeff DO Dec 10, 2018 10:18
[2018-12-10] MEDS: Dakin's 0.125% Soln (Quarter Strength) 16oz TOPIC SCH (11:17)
[2018-12-10 12:16] VITALS: BP 119/74
--- NOTE | 2018-12-10 12:40 | Infectious Diseases Prog Note ---
Assessment/Plan Assessment/Plan IMPRESSION: 1. Amputation stump infection, more in the right side. 2 wound dehiscence of right amputation stump. 3. Anemia. 4. Hypothyroidism. 5. History of melanoma. RECOMMENDATIONS: 1. We will continue with Levaquin and vancomycin. 2. We will follow wound culture 3. MRI of legs inconclusive 4. will have wound cleaning surgery tomorrow Subjective ROS Limited/Unobtainable: No Respiratory: Reports: no symptoms Cardiovascular: Reports: no symptoms Gastrointestinal/Abdominal: Reports: diarrhea Musculoskeletal: Reports: pain Allergies: Coded Allergies: No Known Allergies (Unverified , 01/04/17) Objective Vital Signs Last 24 Hour Vital Signs Date Time Temp Pulse Resp B/P (MAP) Pulse Ox O2 Delivery O2 Flow Rate FiO2 12/10/18 12:16 97.5 70 20 119/74 (89) 98 12/10/18 10:37 Room Air 12/10/18 08:38 96.8 71 18 110/71 (84) 98 12/10/18 04:00 97.5 67 20 100/65 (77) 99 12/10/18 00:00 98.0 71 18 97/59 (72) 95 12/09/18 21:00 Room Air 12/09/18 20:00 98.6 78 18 100/59 (73) 95 12/09/18 16:00 98.1 18 101/65 (77) 97 Height (Feet): 5 Height (Inches): 0.00 Weight (Pounds): 149 General Appearance: no acute distress HEENT: mucous membranes moist Respiratory/Chest: lungs clear Cardiovascular: normal rate, other - left arm PICC line Abdomen: soft, non tender Extremities: no edema, other Skin: ulcers, other - amputations stumps Neurologic/Psychiatric: alert, oriented x 3, responsive Current Medications Medications (Trade) Dose Ordered Sig/Trever Route PRN Reason Start Time Stop Time Status Last Admin Dose Admin Acetaminophen (Tylenol) 500 mg Q8H PRN ORAL Moderate Pain (Pain Scale 4-6) 12/05/18 23:15 01/04/19 23:14 Acetaminophen (Tylenol) 650 mg Q4H PRN ORAL Mild Pain/Temp > 100.5 12/05/18 23:15 01/04/19 23:14 Al Hydroxide/Mg Hydroxide (Mylanta II) 10 ml Q4H PRN ORAL indegestion 12/05/18 23:15 01/04/19 23:14 Bisacodyl (Dulcolax) 10 mg DAILYPRN PRN RECTAL Constipation 12/05/18 23:15 01/04/19 23:14 Chlorhexidine Gluconate (Sammie-Hex 2%) 1 applic DAILY@2000 TOPIC 12/06/18 20:00 01/05/19 19:59 12/09/18 20:23 Hydromorphone HCl (Dilaudid) 2 mg Q3H PRN IVP Severe Pain (Pain Scale 7-10) 12/05/18 23:00 12/12/18 22:59 12/10/18 12:24 Iron Sucrose 100 mg/Sodium Chloride 60 ml @ 240 mls/hr BEDTIME IV 12/08/18 21:00 12/12/18 21:14 12/09/18 20:24 Levofloxacin (Levaquin) 750 mg Q48H ORAL 12/09/18 09:00 12/16/18 08:59 12/09/18 09:16 Levothyroxine Sodium (Synthroid) 200 mcg DAILY@0630 ORAL 12/06/18 06:30 01/05/19 06:29 12/10/18 05:37 Magnesium Hydroxide (Mom) 30 ml DAILYPRN PRN ORAL Constipation 12/05/18 23:15 01/04/19 23:14 Pantoprazole (Protonix) 40 mg DAILY ORAL 12/06/18 09:00 01/05/19 08:59 Sennosides (Senokot) 17.2 mg BEDTIME ORAL 12/06/18 21:00 01/05/19 20:59 12/06/18 20:34 Sodium Hypochlorite (Dakin's Quarter Strength) 1 applic DAILY TOPIC 12/06/18 14:45 01/05/19 14:44 12/10/18 11:17 Sodium Chloride 1,000 ml @ 75 mls/hr [id number] IV 12/10/18 09:45 01/09/19 09:44 12/10/18 11:16 Temazepam (Restoril) 15 mg HSPRN PRN ORAL Insomnia 12/05/18 23:15 12/12/18 23:14 12/09/18 03:07 Temazepam (Restoril) 30 mg HSPRN PRN ORAL Insomnia 12/05/18 23:00 12/12/18 22:59 12/09/18 20:31 Vancomycin HCl (Vanco rx to dose) 1 ea DAILY PRN MISC Per rx protocol 12/06/18 06:15 01/05/19 06:14 Vancomycin/Sodium Chloride 275 ml @ 183.333 mls/hr Q24H IVPB 12/08/18 22:00 12/13/18 21:59 12/09/18 21:21 Partha Obrien MD Dec 10, 2018 12:40
[2018-12-10 16:00] VITALS: BP 108/57
[2018-12-10 20:00] VITALS: BP 116/64
[2018-12-10] MEDS: Dyna-Hex 2% Top Sol 2oz TOPIC SCH (20:09)
[2018-12-10] MEDS: Iron Sucrose 100 MG in NS 55 ML IV SCH (20:10)
[2018-12-10] MEDS: Sennosides 8.6mg tab ORAL SCH (21:00)
[2018-12-10] MEDS: Vancomycin 1.25gm/NS Premix q24h IVPB SCH (22:01)
[2018-12-11] VITALS (14 sets, daily range): BP systolic 95–126; BP diastolic 48–76
[2018-12-11] MEDS ORDERED: Lidocaine 1% 10mg/ml/Epi 0.005mg/ml 30ml vial INJ ONE (07:00)
[2018-12-11] MEDS ORDERED: NeoSporin Gu Irrig 1ml Amp IRRIG ONE (07:01)
[2018-12-11] MEDS ORDERED: Bacitracin 50000 Units Vial ONE (07:01)
--- NOTE | 2018-12-11 07:02 | Anethesia Preoperative Eval ---
Anesthesia Pre-op PMH/ROS General Date of Evaluation: Dec 11, 2018 Anesthesiologist: Sudheer ASA Score: ASA 3 Mallampati Score Class I : Soft palate, uvula, fauces, pillars visible Class II: Soft palate, uvula, fauces visible Class III: Soft palate, base of uvula visible Class IV: Only hard plate visible Mallampati Classification: Class II Surgeon: Yuli Diagnosis: Right BKA wound Surgical Procedure: I&D right BKA wound Anesthesia History: none Family History: no anesthesia problems Allergies: Coded Allergies: No Known Allergies (Unverified , 01/04/17) Medications: see eMAR Patient NPO?: Yes NPO Date: Dec 11, 2018 NPO Time: 0000 Past Medical History Cardiovascular: Reports: other - PVD; Denies: HTN, CAD, MD, valve dz, arrhythmia Pulmonary: Denies: asthma, COPD, KEL, other Gastrointestinal/Genitourinary: Reports: GERD; Denies: CRI, ESRD, other Neurologic/Psychiatric: Reports: depression/anxiety; Denies: dementia, CVA, TIA, other Endocrine: Reports: hypothyroidism; Denies: DM, steroids, other HEENT: Reports: other - left eye conjunctivitis; Denies: cataract (L), cataract (R), glaucoma, [place] (L), [place] (R) Hematology/Immune: Reports: anemia - chronic; Denies: DVT, bleeding disorder, other Musculoskeletal/Integumentary: Reports: OA; Denies: RA, DJD, DDD, edema, other PSxH Narrative: bilatereal BKA Anesthesia Pre-op Phys. Exam Physician Exam Last Vital Signs Date Time Temp Pulse Resp B/P (MAP) Pulse Ox O2 Delivery O2 Flow Rate FiO2 12/11/18 04:00 97.8 68 18 95/59 (71) 98 12/10/18 23:01 Room Air Constitutional: NAD Cardiovascular: RRR Respiratory: CTA Airway Exam Mallampati Score: Class II MO: full ROM: limited Teeth: missing, intact Anesthesia Pre-op A/P Labs see chart Studies Pre-op Studies: EKG - sr Risk Assessment & Plan Assessment: ASA III Plan: GA Status Change Before Surgery: No Pre-Antibiotics Drug: On floor Given Within 1 Hr of Incision: Yes Ale Lanza MD Dec 11, 2018 07:02
[2018-12-11] MEDS ORDERED: NS Irrig 1000ml IRRIG ONE ×2 (07:08→07:40)
--- NOTE | 2018-12-11 07:18 | Pre-Procedure Note/Attestation ---
Pre-Procedure Note/Attestation Complete Prior to Procedure Planned Procedure: right Procedure Narrative: Excisional debridement right bka stump wound Indications for Procedure Pre-Operative Diagnosis: Right bka stump wound Attestation I attest that I discussed the nature of the procedure; its benefits; risks and complications; and alternatives (and the risks and benefits of such alternatives ), prior to the procedure, with the patient (or the patient's legal market survey representative). I attest that, if there was a reasonable possibility of needing a blood transfusion, the patient (or the patient's legal market survey representative) was given the [facility] standardized written summary, pursuant to the [place] Blood Safety Act ([place] Health and Safety Code # 1645, as amended). I attest that I re-evaluated the patient just prior to the surgery and that there has been no change in the patient's H&P, except as documented below: Andrew Roldan MD Dec 11, 2018 07:18
[2018-12-11] MEDS ORDERED: Rocuronium Bromide 50mg/5ml Inj IV ONE ×2 (07:19→07:21)
[2018-12-11] MEDS ORDERED: Etomidate 40mg/20ml Inj IV ONE ×2 (07:19→07:21)
[2018-12-11] MEDS ORDERED: LR 1000ml ONE (07:21)
[2018-12-11] MEDS ORDERED: fentaNYL 100 mcg/2 mL IV ONE ×2 (07:21)
[2018-12-11] MEDS ORDERED: Lidocaine 1% MPF 10mg/ml 5ml ONE (07:21)
[2018-12-11] MEDS ORDERED: Propofol 200mg/20ml IV ONE (07:21)
[2018-12-11] MEDS ORDERED: LR 1000ml 1,000 ML IVLG SCH (07:49)
[2018-12-11] MEDS ORDERED: DiphenhydrAMINE 50mg/ml Inj IVP PRN (08:00)
[2018-12-11] MEDS ORDERED: Hydromorphone 0.5mg/0.5ml inj IVP PRN (08:00)
[2018-12-11] MEDS ORDERED: fentaNYL 100 mcg/2 mL IV PRN (08:00)
--- NOTE | 2018-12-11 08:27 | Immediate Post-Op Evaluation ---
Immediate Post-Op Evalulation Immediate Post-Op Evalulation Procedure: I&D right BKA wound Date of Evaluation: Dec 11, 2018 Time of Evaluation: 08:28 IV Fluids: 400 Blood Products: 0 Estimated Blood Loss: min Urinary Output: 0 Blood Pressure Systolic: 123 Blood Pressure Diastolic: 71 Pulse Rate: 79 Respiratory Rate: 16 O2 Sat by Pulse Oximetry: 100 Temperature (Fahrenheit): 98.6 Pain Score (1-10): 0 Nausea: No Vomiting: No Complications 0 Patient Status: awake, reacts, patent, none Hydration Status: adequate Drug: On floor Given Within 1 Hr of Incision: Yes Ale Lanza MD Dec 11, 2018 08:27
[2018-12-11] MEDS: Dakin's 0.125% Soln (Quarter Strength) 16oz TOPIC SCH (09:00)
--- NOTE | 2018-12-11 09:22 | Brief Operative Note ---
Immediate Post Operative Note Operative Note Pre-op Diagnosis: Right bka stump wound Procedure: Excisional debridement of right bka stump wound, biopsy of tibia, bone culture. Post-op Diagnosis: same Post-op Diagnosis: same as pre-op Surgeon: Yuli Anesthesiologist: Myla Anesthesia: general Specimen: yes Complications: none Condition: stable Fluids: IVF Estimated Blood Loss: minimal Drains: none Implant(s) used?: No Andrew Roldan MD Dec 11, 2018 09:22
[2018-12-11] MEDS: Levofloxacin 750mg tab ORAL SCH (10:00)
--- NOTE | 2018-12-11 11:21 | Infectious Diseases Prog Note ---
Assessment/Plan Assessment/Plan IMPRESSION: 1. Amputation stump infection, more in the right side. 2 wound dehiscence of right amputation stump. 3. Anemia. 4. Hypothyroidism. 5. History of melanoma. RECOMMENDATIONS: 1. We will continue with Levaquin and vancomycin. 2. We will follow wound culture, & bone culture 3. MRI of legs inconclusive Subjective ROS Limited/Unobtainable: No Constitutional: Reports: no symptoms Gastrointestinal/Abdominal: Reports: no symptoms Musculoskeletal: Reports: pain, other - controlled Allergies: Coded Allergies: No Known Allergies (Unverified , 01/04/17) Objective Vital Signs Last 24 Hour Vital Signs Date Time Temp Pulse Resp B/P (MAP) Pulse Ox O2 Delivery O2 Flow Rate FiO2 12/11/18 09:46 97.4 62 18 117/65 (82) 95 12/11/18 09:37 Room Air 12/11/18 09:30 98.2 65 15 106/69 100 Nasal Cannula 3 12/11/18 09:17 65 13 110/64 100 Nasal Cannula 3 12/11/18 09:03 66 15 114/67 100 Nasal Cannula 3 12/11/18 08:53 71 13 115/63 100 Simple Mask 6 12/11/18 08:43 70 15 117/60 100 Simple Mask 6 12/11/18 08:33 75 16 118/68 100 Simple Mask 6 12/11/18 08:28 77 16 113/68 100 Simple Mask 6 12/11/18 08:27 79 16 100 12/11/18 08:23 98.6 79 16 123/71 100 Simple Mask 6 12/11/18 04:00 97.8 68 18 95/59 (71) 98 12/11/18 02:00 98.0 12/11/18 00:00 98.0 74 18 96/58 (71) 97 12/10/18 23:01 Room Air 12/10/18 20:00 98.6 88 18 116/64 (81) 97 12/10/18 16:00 98.4 18 108/57 (74) 97 12/10/18 12:16 97.5 70 20 119/74 (89) 98 Height (Feet): 5 Height (Inches): 0.00 Weight (Pounds): 144 General Appearance: no acute distress HEENT: mucous membranes moist Respiratory/Chest: lungs clear Cardiovascular: normal rate Abdomen: soft, non tender Extremities: no edema, other - bilateral BKA Skin: ulcers, other - in amputation stumps Neurologic/Psychiatric: alert, oriented x 3, responsive Current Medications Medications (Trade) Dose Ordered Sig/Trever Route PRN Reason Start Time Stop Time Status Last Admin Dose Admin Acetaminophen (Tylenol) 500 mg Q8H PRN ORAL Moderate Pain (Pain Scale 4-6) 12/05/18 23:15 01/04/19 23:14 Acetaminophen (Tylenol) 650 mg Q4H PRN ORAL Mild Pain/Temp > 100.5 12/05/18 23:15 01/04/19 23:14 Al Hydroxide/Mg Hydroxide (Mylanta II) 10 ml Q4H PRN ORAL indegestion 12/05/18 23:15 01/04/19 23:14 Bisacodyl (Dulcolax) 10 mg DAILYPRN PRN RECTAL Constipation 12/05/18 23:15 01/04/19 23:14 Chlorhexidine Gluconate (Sammie-Hex 2%) 1 applic DAILY@2000 TOPIC 12/06/18 20:00 01/05/19 19:59 12/10/18 20:09 Hydromorphone HCl (Dilaudid) 2 mg Q3H PRN IVP Severe Pain (Pain Scale 7-10) 12/05/18 23:00 12/12/18 22:59 12/11/18 09:53 Iron Sucrose 100 mg/Sodium Chloride 60 ml @ 240 mls/hr BEDTIME IV 12/08/18 21:00 12/12/18 21:14 12/10/18 20:10 Levofloxacin (Levaquin) 750 mg Q48H ORAL 12/09/18 09:00 12/16/18 08:59 12/11/18 10:00 Levothyroxine Sodium (Synthroid) 200 mcg DAILY@0630 ORAL 12/06/18 06:30 01/05/19 06:29 12/10/18 05:37 Magnesium Hydroxide (Mom) 30 ml DAILYPRN PRN ORAL Constipation 12/05/18 23:15 01/04/19 23:14 Pantoprazole (Protonix) 40 mg DAILY ORAL 12/06/18 09:00 01/05/19 08:59 12/11/18 10:00 Sennosides (Senokot) 17.2 mg BEDTIME ORAL 12/06/18 21:00 01/05/19 20:59 12/06/18 20:34 Sodium Hypochlorite (Dakin's Quarter Strength) 1 applic DAILY TOPIC 12/06/18 14:45 01/05/19 14:44 12/10/18 11:17 Sodium Chloride 1,000 ml @ 75 mls/hr [id number] IV 12/10/18 09:45 01/09/19 09:44 12/11/18 04:42 Temazepam (Restoril) 15 mg HSPRN PRN ORAL Insomnia 12/05/18 23:15 12/12/18 23:14 12/10/18 23:40 Temazepam (Restoril) 30 mg HSPRN PRN ORAL Insomnia 12/05/18 23:00 12/12/18 22:59 12/10/18 20:54 Vancomycin HCl (Vanco rx to dose) 1 ea DAILY PRN MISC Per rx protocol 12/06/18 06:15 01/05/19 06:14 Vancomycin/Sodium Chloride 275 ml @ 183.333 mls/hr Q24H IVPB 12/08/18 22:00 12/13/18 21:59 12/10/18 22:01 Partha Obrien MD Dec 11, 2018 11:21
--- NOTE | 2018-12-11 11:36 | Surgery Progress Note ---
Surgery Progress Note Subjective Additional Comments Patient seen and examined at bedside. No acute events. Looking forward surgical intervention with past surgery today. N.p.o. since midnight. comfortable Objective Last 24 Hour Vital Signs Date Time Temp Pulse Resp B/P (MAP) Pulse Ox O2 Delivery O2 Flow Rate FiO2 12/11/18 09:46 97.4 62 18 117/65 (82) 95 12/11/18 09:37 Room Air 12/11/18 09:30 98.2 65 15 106/69 100 Nasal Cannula 3 12/11/18 09:17 65 13 110/64 100 Nasal Cannula 3 12/11/18 09:03 66 15 114/67 100 Nasal Cannula 3 12/11/18 08:53 71 13 115/63 100 Simple Mask 6 12/11/18 08:43 70 15 117/60 100 Simple Mask 6 12/11/18 08:33 75 16 118/68 100 Simple Mask 6 12/11/18 08:28 77 16 113/68 100 Simple Mask 6 12/11/18 08:27 79 16 100 12/11/18 08:23 98.6 79 16 123/71 100 Simple Mask 6 12/11/18 04:00 97.8 68 18 95/59 (71) 98 12/11/18 02:00 98.0 12/11/18 00:00 98.0 74 18 96/58 (71) 97 12/10/18 23:01 Room Air 12/10/18 20:00 98.6 88 18 116/64 (81) 97 12/10/18 16:00 98.4 18 108/57 (74) 97 12/10/18 12:16 97.5 70 20 119/74 (89) 98 I&O Intake and Output 12/10/18 12/11/18 19:00 07:00 Intake Total 1245 ml 1930 ml Output Total 400 ml 300 ml Balance 845 ml 1630 ml Intake Oral 720 ml 480 ml IV Total 525 ml 450 ml Other 1000 ml Output Urine Total 400 ml 300 ml # Voids 1 # Bowel Movements 1 1 Dressing: saturated Wound: clean Cardiovascular: RSR Respiratory: clear Abdomen: soft, non-tender, present bowel sounds, non-distended Extremities: edema, other Plan Problems: (1) Amputation stump infection Assessment & Plan: bilateral lower extremity below-knee amputations. On the right side the recent revision flap has dehisced and serous purulent drainage identified with viable sutures and palpable bone. On the left side the flap is intact on the medial aspect there is drainage coming from the wound bed in between the barbara. There is an opening on the lateral aspect approximately 2 cm x 2 cm with unknown depth given its location We will currently continue with localized wound care as I discussed with the operating orthopedic surgeon about potential management. I discussed with the patient the current findings and the potential necessity for reoperation versus ray amputation. Versus potential salvage. Continue with IV antibiotics Dakin's wet-to-dry 3 times daily to right amputation stump open flap wound cover with gauze ABD and Kerlix Packing gauze and dressing to left lower extremity BKA wound. 3 times daily With follow with local wound care and evaluation We will discuss with orthopedic and medical team Thank you for allowing participate patient's care (2) Sacral decubitus ulcer Assessment & Plan: This is a 88-year-old male with multiple small full- thickness sacral decubitus ulcers. Patient states that he formed because he was laying flat for 15 days at an outside facility. Identified upon admission and initiated care plan. Periwound seems to have prior healing areas as well as acute inflamed areas with full-thickness breakdown approximately 1 cm x 1 cm on the left buttock/sacral cleft and similarly on the right as well. No active drainage. No foul order. Pt presented on admission with keloid scar with hyperpigmentation sacrum from previous pressure injury;confirmed by pt. Dry loose skin noted to R and L sacrum. No open areas noted. Pt denied tenderness when site palpated. Pt resistive to being repositioned on his sides and was educated of potential risks for already compromised skin to breakdown . Pt demonstrated ability to reposition self when cued.Demonstrated to pt on how to utilize side rails to off -lift buttocks and shift weight in bed. Skin lesions noted to R and L scalp. Pt verbalized he has skin cancer and lesions were recently removed. Hypergranular skin lesions also noted to Lateral L thigh. Apply Moisture Barrier Paste to Sacrum. Cover with Optifoam drsg. Change every 3 days and prn. Encourage and assist with repositioning at least every 2hours or as tolerated.Elevate BKA stumps on pillow. Turn every 2 hours. Patient willing and does assist with ensuring that he turns every so often Offload stump pressures with pillow Thank you for allowing me to participate in patient's care will follow with recommendations (3) Postoperative wound closure planning (4) Stump injury Assessment & Plan: will monitor for now with local wound care will likely need debridement. plan for possible next week with Plastic surgery if decides he would like amputation will be available Findings: X-ray better demonstrates signs of recent surgery with surgical clips barbara at the site of a below the knee amputation. The cortical margin at the tibial stump appears intact both on x-ray and MRI. MRI examination does demonstrate bone marrow edema in the anterior inferior aspect of the tibial stump. Adjacent soft tissue swelling is present. Given recent surgery the soft tissue changes are expected. The bone marrow edema could be reactive marrow edema or due to osteomyelitis. Suspect the former. Similar signal alteration noted within the left tibial stump (left lower extremity partially imaged on this study on the transcoronal sequences). thank you (5) Infection of amputation stump, right lower extremity Jaiden Teresa Dec 11, 2018 11:36
--- NOTE | 2018-12-11 15:57 | Hematology/Onc Progress Note ---
Assessment/Plan Assessment/Plan IMPRESSION/RECS: # Anemia due to underlying iron deficiency, r/o gi bleed - also with multifactorial component --> anemia panel reviewed and noted with Iron def --> has been started on iv iron x 5 day course --> hgb transfuse if hgb lower than 7 --> hgb trend 10.6-->10.1-->9.9 --> occult pending ordered --> cbc reordered # History of melanoma. --> currently in remission # Amputation stump infection, more in the right side. --> on cefepime/vanc--> leva/vanc --> as per id recs --> surg, pod recs # Wound dehiscence of right amputation stump. --> eval with surg, pod # Hypothyroidism. --> started on synthroid # Dvt ppx consider lovenox if h/h stable Time of note does not necessarily correspond to when patient seen Greatly appreciate consultation. Subjective Constitutional: Denies: no symptoms, chills, fever, malaise, weakness, other HEENT: Denies: no symptoms, eye pain, blurred vision, tearing, double vision, ear pain, ear discharge, nose pain, nose congestion, throat pain, throat swelling, mouth pain, mouth swelling, other Cardiovascular: Denies: no symptoms, chest pain, edema, irregular heart rate, lightheadedness, palpitations, syncope, other Gastrointestinal/Abdominal: Denies: no symptoms, abdomen distended, abdominal pain, black stools, tarry stools, blood in stool, constipated, diarrhea, difficulty swallowing, nausea, poor appetite, poor fluid intake, rectal bleeding , vomiting, other Genitourinary: Denies: no symptoms, burning, discharge, frequency, flank pain, hematuria, incontinence, pain, urgency, other Neurologic/Psychiatric: Denies: no symptoms, anxiety, depressed, emotional problems, headache, numbness, paresthesia, pre-existing deficit, seizure, tingling, tremors, weakness, other Endocrine: Denies: no symptoms, excessive sweating, flushing, intolerance to cold, intolerance to heat, increased hunger, increased thirst, increased urine, unexplained weight gain, unexplained weight loss, other Allergies: Coded Allergies: No Known Allergies (Unverified , 01/04/17) Subjective 9/7: no events, remains on abx, has been started on iv iron, hgb 9.9 12/11: s/p right leg wound debridement, cultures pending Objective Objective Current Medications Medications (Trade) Dose Ordered Sig/Trever Route PRN Reason Start Time Stop Time Status Last Admin Dose Admin Acetaminophen (Tylenol) 500 mg Q8H PRN ORAL Moderate Pain (Pain Scale 4-6) 12/05/18 23:15 01/04/19 23:14 Acetaminophen (Tylenol) 650 mg Q4H PRN ORAL Mild Pain/Temp > 100.5 12/05/18 23:15 01/04/19 23:14 Al Hydroxide/Mg Hydroxide (Mylanta II) 10 ml Q4H PRN ORAL indegestion 12/05/18 23:15 01/04/19 23:14 Bisacodyl (Dulcolax) 10 mg DAILYPRN PRN RECTAL Constipation 12/05/18 23:15 01/04/19 23:14 Chlorhexidine Gluconate (Sammie-Hex 2%) 1 applic DAILY@2000 TOPIC 12/06/18 20:00 01/05/19 19:59 12/10/18 20:09 Hydromorphone HCl (Dilaudid) 2 mg Q3H PRN IVP Severe Pain (Pain Scale 7-10) 12/05/18 23:00 12/12/18 22:59 12/11/18 13:21 Iron Sucrose 100 mg/Sodium Chloride 60 ml @ 240 mls/hr BEDTIME IV 12/08/18 21:00 12/12/18 21:14 12/10/18 20:10 Levofloxacin (Levaquin) 750 mg Q48H ORAL 12/09/18 09:00 12/16/18 08:59 12/11/18 10:00 Levothyroxine Sodium (Synthroid) 200 mcg DAILY@0630 ORAL 12/06/18 06:30 01/05/19 06:29 12/10/18 05:37 Magnesium Hydroxide (Mom) 30 ml DAILYPRN PRN ORAL Constipation 12/05/18 23:15 01/04/19 23:14 Pantoprazole (Protonix) 40 mg DAILY ORAL 12/06/18 09:00 01/05/19 08:59 12/11/18 10:00 Sennosides (Senokot) 17.2 mg BEDTIME ORAL 12/06/18 21:00 01/05/19 20:59 12/06/18 20:34 Sodium Hypochlorite (Dakin's Quarter Strength) 1 applic DAILY TOPIC 12/06/18 14:45 01/05/19 14:44 12/10/18 11:17 Sodium Chloride 1,000 ml @ 75 mls/hr [id number] IV 12/10/18 09:45 01/09/19 09:44 12/11/18 04:42 Temazepam (Restoril) 15 mg HSPRN PRN ORAL Insomnia 12/05/18 23:15 12/12/18 23:14 12/10/18 23:40 Temazepam (Restoril) 30 mg HSPRN PRN ORAL Insomnia 12/05/18 23:00 12/12/18 22:59 12/10/18 20:54 Vancomycin HCl (Vanco rx to dose) 1 ea DAILY PRN MISC Per rx protocol 12/06/18 06:15 01/05/19 06:14 Vancomycin/Sodium Chloride 275 ml @ 183.333 mls/hr Q24H IVPB 12/08/18 22:00 12/13/18 21:59 12/10/18 22:01 Last 24 Hour Vital Signs Date Time Temp Pulse Resp B/P (MAP) Pulse Ox O2 Delivery O2 Flow Rate FiO2 12/11/18 12:04 97.8 65 18 122/68 (86) 96 12/11/18 09:46 97.4 62 18 117/65 (82) 95 12/11/18 09:37 Room Air 12/11/18 09:30 98.2 65 15 106/69 100 Nasal Cannula 3 12/11/18 09:17 65 13 110/64 100 Nasal Cannula 3 12/11/18 09:03 66 15 114/67 100 Nasal Cannula 3 12/11/18 08:53 71 13 115/63 100 Simple Mask 6 12/11/18 08:43 70 15 117/60 100 Simple Mask 6 12/11/18 08:33 75 16 118/68 100 Simple Mask 6 12/11/18 08:28 77 16 113/68 100 Simple Mask 6 12/11/18 08:27 79 16 100 12/11/18 08:23 98.6 79 16 123/71 100 Simple Mask 6 12/11/18 04:00 97.8 68 18 95/59 (71) 98 12/11/18 02:00 98.0 12/11/18 00:00 98.0 74 18 96/58 (71) 97 12/10/18 23:01 Room Air 12/10/18 20:00 98.6 88 18 116/64 (81) 97 12/10/18 16:00 98.4 18 108/57 (74) 97 12/10/18 12:16 97.5 70 20 119/74 (89) 98 12/10/18 10:37 Room Air 12/10/18 08:38 96.8 71 18 110/71 (84) 98 12/10/18 04:00 97.5 67 20 100/65 (77) 99 12/10/18 00:00 98.0 71 18 97/59 (72) 95 12/09/18 21:00 Room Air 12/09/18 20:00 98.6 78 18 100/59 (73) 95 12/09/18 16:00 98.1 18 101/65 (77) 97 Intake and Output 12/10/18 12/11/18 19:00 07:00 Intake Total 1245 ml 1930 ml Output Total 400 ml 300 ml Balance 845 ml 1630 ml Intake Oral 720 ml 480 ml IV Total 525 ml 450 ml Other 1000 ml Output Urine Total 400 ml 300 ml # Voids 1 # Bowel Movements 1 1 Labs Test 12/08/18 19:35 12/09/18 06:00 Vancomycin Level Trough 9.0 ug/mL (5.0-12.0) White Blood Count 5.1 K/UL (4.8-10.8) Red Blood Count 3.15 M/UL (4.70-6.10) Hemoglobin 9.9 G/DL (14.2-18.0) Hematocrit 30.1 % (42.0-52.0) Mean Corpuscular Volume 96 FL (80-99) Mean Corpuscular Hemoglobin 31.4 PG (27.0-31.0) Mean Corpuscular Hemoglobin Concent 32.9 G/DL (32.0-36.0) Red Cell Distribution Width 12.9 % (11.6-14.8) Platelet Count 154 K/UL (150-450) Mean Platelet Volume 6.7 FL (6.5-10.1) Neutrophils (%) (Auto) 61.4 % (45.0-75.0) Lymphocytes (%) (Auto) 25.9 % (20.0-45.0) Monocytes (%) (Auto) 6.3 % (1.0-10.0) Eosinophils (%) (Auto) 5.3 % (0.0-3.0) Basophils (%) (Auto) 1.1 % (0.0-2.0) Height (Feet): 5 Height (Inches): 0.00 Weight (Pounds): 144 Objective Gen: Nad Pulm: Ctab CV: rrr, no mgr Abd: soft, nt, nd Ext: b/l nka noted, dressings+ Oseas Tong MD Dec 11, 2018 15:57
[2018-12-11] MEDS: Dyna-Hex 2% Top Sol 2oz TOPIC SCH (19:45)
[2018-12-11] MEDS: Iron Sucrose 100 MG in NS 55 ML IV SCH (20:11)
[2018-12-11] MEDS: Sennosides 8.6mg tab ORAL SCH (20:26)
--- NOTE | 2018-12-11 21:02 | General Progress Note ---
Assessment/Plan Problem List: (1) Leg pain ICD Codes: M79.606 - Leg pain SNOMED: 85439995 (2) Anemia ICD Codes: D64.9 - Anemia, unspecified SNOMED: 570018682 (3) Amputation stump infection ICD Codes: T87.40 - Infection of amputation stump, unspecified extremity SNOMED: 379325445 (4) Postoperative wound closure planning ICD Codes: Z48.1 - Encounter for planned postprocedural wound closure SNOMED: 494552976 (5) Stump injury ICD Codes: T14.8 - Other injury of unspecified body region SNOMED: 397753859 (6) Infection of amputation stump, right lower extremity ICD Codes: T87.43 - Infection of amputation stump, right lower extremity SNOMED: 756480291, 090971278 Status: stable, progressing Assessment/Plan: stump site wound dehiscence and infection I&d per dr bruce continue iv afx debridement per dr duarte afebrile h/h check lytes Subjective ROS Limited/Unobtainable: Yes Allergies: Coded Allergies: No Known Allergies (Unverified , 01/04/17) Objective Last 24 Hour Vital Signs Date Time Temp Pulse Resp B/P (MAP) Pulse Ox O2 Delivery O2 Flow Rate FiO2 12/11/18 20:07 97.9 12/11/18 16:00 97.9 68 18 126/76 (93) 97 12/11/18 12:04 97.8 65 18 122/68 (86) 96 12/11/18 09:46 97.4 62 18 117/65 (82) 95 12/11/18 09:37 Room Air 12/11/18 09:30 98.2 65 15 106/69 100 Nasal Cannula 3 12/11/18 09:17 65 13 110/64 100 Nasal Cannula 3 12/11/18 09:03 66 15 114/67 100 Nasal Cannula 3 12/11/18 08:53 71 13 115/63 100 Simple Mask 6 12/11/18 08:43 70 15 117/60 100 Simple Mask 6 12/11/18 08:33 75 16 118/68 100 Simple Mask 6 12/11/18 08:28 77 16 113/68 100 Simple Mask 6 12/11/18 08:27 79 16 100 12/11/18 08:23 98.6 79 16 123/71 100 Simple Mask 6 12/11/18 04:00 97.8 68 18 95/59 (71) 98 12/11/18 00:00 98.0 74 18 96/58 (71) 97 12/10/18 23:01 Room Air Intake and Output 12/10/18 12/11/18 18:59 06:59 Intake Total 1170 ml 2005 ml Output Total 400 ml 300 ml Balance 770 ml 1705 ml Intake Oral 720 ml 480 ml IV Total 450 ml 525 ml Other 1000 ml Output Urine Total 400 ml 300 ml # Voids 1 # Bowel Movements 1 1 Height (Feet): 5 Height (Inches): 0.00 Weight (Pounds): 144 Cardiovascular: normal rate Respiratory/Chest: lungs clear Rossy Samuel MD Dec 11, 2018 21:02
[2018-12-11 21:26] LABS: BASOPHILS % (AUTO) 1.7 % (0.0-2.0); EOSINOPHILS % (AUTO) 4.3 % (0.0-3.0); HEMATOCRIT 26.4 % (42.0-52.0); HEMOGLOBIN 9.3 G/DL (14.2-18.0); LYMPHOCYTES % (AUTO) 24.8 % (20.0-45.0); MEAN CORPUSCULAR VOLUME 92 FL (80-99); NEUTROPHILS % (AUTO) 64.2 % (45.0-75.0); PLATELET COUNT 117 K/UL (150-450); RED BLOOD COUNT 2.88 M/UL (4.70-6.10); RED CELL DISTRIBUTION WIDTH 12.6 % (11.6-14.8); WHITE BLOOD COUNT 4.8 K/UL (4.8-10.8)
[2018-12-11 21:38] LABS: ANION GAP 6 mmol/L (5-15); BLOOD UREA NITROGEN 12 mg/dL (7-18); CALCIUM 8.3 MG/DL (8.5-10.1); CARBON DIOXIDE 27 MMOL/L (21-32); CHLORIDE 108 MMOL/L (98-107); CREATININE 0.9 MG/DL (0.55-1.30); POTASSIUM 3.8 MMOL/L (3.5-5.1); SODIUM 141 MMOL/L (136-145)
[2018-12-11] MEDS: Vancomycin 1.25gm/NS Premix q24h IVPB SCH (22:31)
[2018-12-12] VITALS: BP 95/46
[2018-12-12 08:00] VITALS: BP 123/62
--- NOTE | 2018-12-12 11:45 | Infectious Diseases Prog Note ---
Assessment/Plan Assessment/Plan IMPRESSION: 1. Amputation stump infection, more in the right side. - cultures; MRSA, Enterococcus & Proteus 2 wound dehiscence of right amputation stump. 3. Anemia. 4. Hypothyroidism. 5. History of melanoma. RECOMMENDATIONS: 1. We will continue with Levaquin and vancomycin. 2. We will follow wound culture, & bone culture 3. will consider custodial antibiotic Subjective ROS Limited/Unobtainable: No Constitutional: Reports: no symptoms Respiratory: Reports: no symptoms Gastrointestinal/Abdominal: Reports: no symptoms Genitourinary: Reports: no symptoms Musculoskeletal: Reports: pain Allergies: Coded Allergies: No Known Allergies (Unverified , 01/04/17) Objective Vital Signs Last 24 Hour Vital Signs Date Time Temp Pulse Resp B/P (MAP) Pulse Ox O2 Delivery O2 Flow Rate FiO2 12/12/18 09:20 96.2 12/12/18 08:21 Room Air 12/12/18 08:00 96.2 66 18 123/62 (82) 99 12/12/18 00:00 97.7 73 18 95/46 (62) 95 12/11/18 23:19 Room Air 12/11/18 20:00 97.7 85 18 98/48 (65) 97 12/11/18 16:00 97.9 68 18 126/76 (93) 97 12/11/18 12:04 97.8 65 18 122/68 (86) 96 Height (Feet): 5 Height (Inches): 0.00 Weight (Pounds): 144 General Appearance: no acute distress HEENT: mucous membranes moist Respiratory/Chest: lungs clear Cardiovascular: normal rate, other - left arm PICC line Abdomen: soft, non tender Extremities: other - bilateral BKA Skin: ulcers, other - R stump woud-vac Neurologic/Psychiatric: alert, oriented x 3, responsive Microbiology Date/Time Source Procedure Growth Status 12/11/18 08:08 Other Gram Stain - Final Resulted 12/11/18 08:08 Aerobic Culture - Preliminary Staphylococcus Aureus Gram Negative Bacillus 1 Resulted Laboratory Tests Test 12/11/18 21:00 White Blood Count 4.8 K/UL (4.8-10.8) Red Blood Count 2.88 M/UL (4.70-6.10) L Hemoglobin 9.3 G/DL (14.2-18.0) L Hematocrit 26.4 % (42.0-52.0) L Mean Corpuscular Volume 92 FL (80-99) Mean Corpuscular Hemoglobin 32.4 PG (27.0-31.0) H Mean Corpuscular Hemoglobin Concent 35.4 G/DL (32.0-36.0) Red Cell Distribution Width 12.6 % (11.6-14.8) Platelet Count 117 K/UL (150-450) L Mean Platelet Volume 6.2 FL (6.5-10.1) L Neutrophils (%) (Auto) 64.2 % (45.0-75.0) Lymphocytes (%) (Auto) 24.8 % (20.0-45.0) Monocytes (%) (Auto) 5.0 % (1.0-10.0) Eosinophils (%) (Auto) 4.3 % (0.0-3.0) H Basophils (%) (Auto) 1.7 % (0.0-2.0) Prothrombin Time 10.7 SEC (9.30-11.50) Prothromb Time International Ratio 1.0 (0.9-1.1) Activated Partial Thromboplast Time 29 SEC (23-33) Sodium Level 141 MMOL/L (136-145) Potassium Level 3.8 MMOL/L (3.5-5.1) Chloride Level 108 MMOL/L (98-107) H Carbon Dioxide Level 27 MMOL/L (21-32) Anion Gap 6 mmol/L (5-15) Blood Urea Nitrogen 12 mg/dL (7-18) Creatinine 0.9 MG/DL (0.55-1.30) Estimat Glomerular Filtration Rate mL/min (>60) Glucose Level 115 MG/DL (74-106) H Calcium Level 8.3 MG/DL (8.5-10.1) L Vancomycin Level Trough 12.1 ug/mL (5.0-12.0) H Current Medications Medications (Trade) Dose Ordered Sig/Trever Route PRN Reason Start Time Stop Time Status Last Admin Dose Admin Acetaminophen (Tylenol) 500 mg Q8H PRN ORAL Moderate Pain (Pain Scale 4-6) 12/05/18 23:15 01/04/19 23:14 Acetaminophen (Tylenol) 650 mg Q4H PRN ORAL Mild Pain/Temp > 100.5 12/05/18 23:15 01/04/19 23:14 Al Hydroxide/Mg Hydroxide (Mylanta II) 10 ml Q4H PRN ORAL indegestion 12/05/18 23:15 01/04/19 23:14 Bisacodyl (Dulcolax) 10 mg DAILYPRN PRN RECTAL Constipation 12/05/18 23:15 01/04/19 23:14 Chlorhexidine Gluconate (Sammie-Hex 2%) 1 applic DAILY@2000 TOPIC 12/06/18 20:00 01/05/19 19:59 12/11/18 19:45 Hydromorphone HCl (Dilaudid) 2 mg Q3H PRN IVP Severe Pain (Pain Scale 7-10) 12/05/18 23:00 12/12/18 22:59 12/12/18 08:50 Iron Sucrose 100 mg/Sodium Chloride 60 ml @ 240 mls/hr BEDTIME IV 12/08/18 21:00 12/12/18 21:14 12/11/18 20:11 Levofloxacin (Levaquin) 750 mg Q48H ORAL 12/09/18 09:00 12/16/18 08:59 12/11/18 10:00 Levothyroxine Sodium (Synthroid) 200 mcg DAILY@0630 ORAL 12/06/18 06:30 01/05/19 06:29 12/12/18 05:54 Magnesium Hydroxide (Mom) 30 ml DAILYPRN PRN ORAL Constipation 12/05/18 23:15 01/04/19 23:14 Pantoprazole (Protonix) 40 mg DAILY ORAL 12/06/18 09:00 01/05/19 08:59 12/11/18 10:00 Sennosides (Senokot) 17.2 mg BEDTIME ORAL 12/06/18 21:00 01/05/19 20:59 12/06/18 20:34 Sodium Chloride 1,000 ml @ 75 mls/hr [id number] IV 12/10/18 09:45 01/09/19 09:44 12/12/18 01:49 Temazepam (Restoril) 15 mg HSPRN PRN ORAL Insomnia 12/05/18 23:15 12/12/18 23:14 12/12/18 01:49 Temazepam (Restoril) 30 mg HSPRN PRN ORAL Insomnia 12/05/18 23:00 12/12/18 22:59 12/11/18 21:34 Vancomycin HCl (Vanco rx to dose) 1 ea DAILY PRN MISC Per rx protocol 12/06/18 06:15 01/05/19 06:14 Vancomycin/Sodium Chloride 275 ml @ 183.333 mls/hr Q24H IVPB 12/08/18 22:00 12/13/18 21:59 12/11/18 22:31 Partha Obrien MD Dec 12, 2018 11:45
--- NOTE | 2018-12-12 11:52 | Surgery Progress Note ---
Surgery Progress Note Subjective Symptoms: improved, tolerating diet, voiding well, passing flatus Objective Last 24 Hour Vital Signs Date Time Temp Pulse Resp B/P (MAP) Pulse Ox O2 Delivery O2 Flow Rate FiO2 12/12/18 09:20 96.2 12/12/18 08:21 Room Air 12/12/18 08:00 96.2 66 18 123/62 (82) 99 12/12/18 00:00 97.7 73 18 95/46 (62) 95 12/11/18 23:19 Room Air 12/11/18 20:00 97.7 85 18 98/48 (65) 97 12/11/18 16:00 97.9 68 18 126/76 (93) 97 12/11/18 12:04 97.8 65 18 122/68 (86) 96 I&O Intake and Output 12/11/18 12/12/18 19:00 07:00 Intake Total 1650 ml Output Total 265 ml Balance 1385 ml Intake Oral 550 ml IV Total 1100 ml Output Urine Total 250 ml Estimated Blood Loss 15 ml # Voids 2 Dressing: saturated Wound: clean Drains: wound vac Cardiovascular: RSR Respiratory: clear Abdomen: soft, flat, non-tender, present bowel sounds, non-distended Extremities: other Laboratory Tests Test 12/11/18 21:00 White Blood Count 4.8 K/UL (4.8-10.8) Red Blood Count 2.88 M/UL (4.70-6.10) L Hemoglobin 9.3 G/DL (14.2-18.0) L Hematocrit 26.4 % (42.0-52.0) L Mean Corpuscular Volume 92 FL (80-99) Mean Corpuscular Hemoglobin 32.4 PG (27.0-31.0) H Mean Corpuscular Hemoglobin Concent 35.4 G/DL (32.0-36.0) Red Cell Distribution Width 12.6 % (11.6-14.8) Platelet Count 117 K/UL (150-450) L Mean Platelet Volume 6.2 FL (6.5-10.1) L Neutrophils (%) (Auto) 64.2 % (45.0-75.0) Lymphocytes (%) (Auto) 24.8 % (20.0-45.0) Monocytes (%) (Auto) 5.0 % (1.0-10.0) Eosinophils (%) (Auto) 4.3 % (0.0-3.0) H Basophils (%) (Auto) 1.7 % (0.0-2.0) Prothrombin Time 10.7 SEC (9.30-11.50) Prothromb Time International Ratio 1.0 (0.9-1.1) Activated Partial Thromboplast Time 29 SEC (23-33) Sodium Level 141 MMOL/L (136-145) Potassium Level 3.8 MMOL/L (3.5-5.1) Chloride Level 108 MMOL/L (98-107) H Carbon Dioxide Level 27 MMOL/L (21-32) Anion Gap 6 mmol/L (5-15) Blood Urea Nitrogen 12 mg/dL (7-18) Creatinine 0.9 MG/DL (0.55-1.30) Estimat Glomerular Filtration Rate mL/min (>60) Glucose Level 115 MG/DL (74-106) H Calcium Level 8.3 MG/DL (8.5-10.1) L Vancomycin Level Trough 12.1 ug/mL (5.0-12.0) H Plan Problems: (1) Amputation stump infection Assessment & Plan: bilateral lower extremity below-knee amputations. On the right side the recent revision flap has dehisced and serous purulent drainage identified with viable sutures and palpable bone. On the left side the flap is intact on the medial aspect there is drainage coming from the wound bed in between the barbara. There is an opening on the lateral aspect approximately 2 cm x 2 cm with unknown depth given its location. We will currently continue with localized wound care as I discussed with the operating orthopedic surgeon about potential management. I discussed with the patient the current findings and the potential necessity for reoperation versus ray amputation. Versus potential salvage. Continue with IV antibiotics s/p debridement by plastic surgery 12/11 wound vac placed today by myself 12/12 d/c planning With follow with local wound care and evaluation We will discuss with orthopedic and medical team Thank you for allowing participate patient's care (2) Sacral decubitus ulcer Assessment & Plan: This is a 88-year-old male with multiple small full- thickness sacral decubitus ulcers. Patient states that he formed because he was laying flat for 15 days at an outside facility. Identified upon admission and initiated care plan. Periwound seems to have prior healing areas as well as acute inflamed areas with full-thickness breakdown approximately 1 cm x 1 cm on the left buttock/sacral cleft and similarly on the right as well. No active drainage. No foul order. Pt presented on admission with keloid scar with hyperpigmentation sacrum from previous pressure injury;confirmed by pt. Dry loose skin noted to R and L sacrum. No open areas noted. Pt denied tenderness when site palpated. Pt resistive to being repositioned on his sides and was educated of potential risks for already compromised skin to breakdown . Pt demonstrated ability to reposition self when cued.Demonstrated to pt on how to utilize side rails to off -lift buttocks and shift weight in bed. Skin lesions noted to R and L scalp. Pt verbalized he has skin cancer and lesions were recently removed. Hypergranular skin lesions also noted to Lateral L thigh. Apply Moisture Barrier Paste to Sacrum. Cover with Optifoam drsg. Change every 3 days and prn. Encourage and assist with repositioning at least every 2hours or as tolerated.Elevate BKA stumps on pillow. Turn every 2 hours. Patient willing and does assist with ensuring that he turns every so often Offload stump pressures with pillow Thank you for allowing me to participate in patient's care will follow with recommendations (3) Postoperative wound closure planning (4) Stump injury Assessment & Plan: s/p debridement by plastic surgery 12/11 wound vac placed today by myself 12/12 d/c planning if decides he would like amputation will be available Findings: X-ray better demonstrates signs of recent surgery with surgical clips barbara at the site of a below the knee amputation. The cortical margin at the tibial stump appears intact both on x-ray and MRI. MRI examination does demonstrate bone marrow edema in the anterior inferior aspect of the tibial stump. Adjacent soft tissue swelling is present. Given recent surgery the soft tissue changes are expected. The bone marrow edema could be reactive marrow edema or due to osteomyelitis. Suspect the former. Similar signal alteration noted within the left tibial stump (left lower extremity partially imaged on this study on the transcoronal sequences). thank you (5) Infection of amputation stump, right lower extremity Additional Comments Wound vac placed to right bka stump after debridement yesterday. wound bed much better and sutures now removed barbara removed from left bka stump. improving dry dressing and wrap to left bka stump will plan for VAC change q3 days for right bka stump wound d/c planning thank you Jaiden Teresa Dec 12, 2018 11:52
--- NOTE | 2018-12-12 11:52 | Hematology/Onc Progress Note ---
Assessment/Plan Assessment/Plan IMPRESSION/RECS: # Anemia due to underlying iron deficiency, r/o gi bleed - also with multifactorial component --> anemia panel reviewed and noted with Iron def --> has been started on iv iron x 5 day course --> hgb transfuse if hgb lower than 7 --> hgb trend 10.6-->10.1-->9.9-->9.3 --> occult pending ordered --> cbc reordered # History of melanoma. --> currently in remission # Amputation stump infection, more in the right side. --> on cefepime/vanc--> leva/vanc --> as per id recs --> surg, pod recs # Wound dehiscence of right amputation stump. --> eval with surg, pod # Hypothyroidism. --> started on synthroid # Dvt ppx consider lovenox if h/h stable Time of note does not necessarily correspond to when patient seen Greatly appreciate consultation. Subjective Allergies: Coded Allergies: No Known Allergies (Unverified , 01/04/17) Subjective 12/09: no events, remains on abx, has been started on iv iron, hgb 9.9 12/11: s/p right leg wound debridement, cultures pending 12/12: vs stable, on abx, cultures noted, bleeding noted on dressing Objective Objective Current Medications Medications (Trade) Dose Ordered Sig/Trever Route PRN Reason Start Time Stop Time Status Last Admin Dose Admin Acetaminophen (Tylenol) 500 mg Q8H PRN ORAL Moderate Pain (Pain Scale 4-6) 12/05/18 23:15 01/04/19 23:14 Acetaminophen (Tylenol) 650 mg Q4H PRN ORAL Mild Pain/Temp > 100.5 12/05/18 23:15 01/04/19 23:14 Al Hydroxide/Mg Hydroxide (Mylanta II) 10 ml Q4H PRN ORAL indegestion 12/05/18 23:15 01/04/19 23:14 Bisacodyl (Dulcolax) 10 mg DAILYPRN PRN RECTAL Constipation 12/05/18 23:15 01/04/19 23:14 Chlorhexidine Gluconate (Sammie-Hex 2%) 1 applic DAILY@1999 TOPIC 12/06/18 20:00 01/05/19 19:59 12/11/18 19:45 Hydromorphone HCl (Dilaudid) 2 mg Q3H PRN IVP Severe Pain (Pain Scale 7-10) 12/05/18 23:00 12/12/18 22:59 12/12/18 08:50 Iron Sucrose 100 mg/Sodium Chloride 60 ml @ 240 mls/hr BEDTIME IV 12/08/18 21:00 12/12/18 21:14 12/11/18 20:11 Levofloxacin (Levaquin) 750 mg Q48H ORAL 12/09/18 09:00 12/16/18 08:59 12/11/18 10:00 Levothyroxine Sodium (Synthroid) 200 mcg DAILY@0630 ORAL 12/06/18 06:30 01/05/19 06:29 12/12/18 05:54 Magnesium Hydroxide (Mom) 30 ml DAILYPRN PRN ORAL Constipation 12/05/18 23:15 01/04/19 23:14 Pantoprazole (Protonix) 40 mg DAILY ORAL 12/06/18 09:00 01/05/19 08:59 12/11/18 10:00 Sennosides (Senokot) 17.2 mg BEDTIME ORAL 12/06/18 21:00 01/05/19 20:59 12/06/18 20:34 Sodium Chloride 1,000 ml @ 75 mls/hr [id number] IV 12/10/18 09:45 01/09/19 09:44 12/12/18 01:49 Temazepam (Restoril) 15 mg HSPRN PRN ORAL Insomnia 12/05/18 23:15 12/12/18 23:14 12/12/18 01:49 Temazepam (Restoril) 30 mg HSPRN PRN ORAL Insomnia 12/05/18 23:00 12/12/18 22:59 12/11/18 21:34 Vancomycin HCl (Vanco rx to dose) 1 ea DAILY PRN MISC Per rx protocol 12/06/18 06:15 01/05/19 06:14 Vancomycin/Sodium Chloride 275 ml @ 183.333 mls/hr Q24H IVPB 12/08/18 22:00 12/13/18 21:59 12/11/18 22:31 Last 24 Hour Vital Signs Date Time Temp Pulse Resp B/P (MAP) Pulse Ox O2 Delivery O2 Flow Rate FiO2 12/12/18 09:20 96.2 12/12/18 08:21 Room Air 12/12/18 08:00 96.2 66 18 123/62 (82) 99 12/12/18 00:00 97.7 73 18 95/46 (62) 95 12/11/18 23:19 Room Air 12/11/18 20:00 97.7 85 18 98/48 (65) 97 12/11/18 16:00 97.9 68 18 126/76 (93) 97 12/11/18 12:04 97.8 65 18 122/68 (86) 96 12/11/18 09:46 97.4 62 18 117/65 (82) 95 12/11/18 09:37 Room Air 12/11/18 09:30 98.2 65 15 106/69 100 Nasal Cannula 3 12/11/18 09:17 65 13 110/64 100 Nasal Cannula 3 12/11/18 09:03 66 15 114/67 100 Nasal Cannula 3 12/11/18 08:53 71 13 115/63 100 Simple Mask 6 12/11/18 08:43 70 15 117/60 100 Simple Mask 6 12/11/18 08:33 75 16 118/68 100 Simple Mask 6 12/11/18 08:28 77 16 113/68 100 Simple Mask 6 12/11/18 08:27 79 16 100 12/11/18 08:23 98.6 79 16 123/71 100 Simple Mask 6 12/11/18 04:00 97.8 68 18 95/59 (71) 98 12/11/18 00:00 98.0 74 18 96/58 (71) 97 12/10/18 23:01 Room Air 12/10/18 20:00 98.6 88 18 116/64 (81) 97 12/10/18 16:00 98.4 18 108/57 (74) 97 12/10/18 12:16 97.5 70 20 119/74 (89) 98 Intake and Output 12/11/18 12/12/18 19:00 07:00 Intake Total 1650 ml Output Total 265 ml Balance 1385 ml Intake Oral 550 ml IV Total 1100 ml Output Urine Total 250 ml Estimated Blood Loss 15 ml # Voids 2 Labs Test 12/11/18 21:00 White Blood Count 4.8 K/UL (4.8-10.8) Red Blood Count 2.88 M/UL (4.70-6.10) Hemoglobin 9.3 G/DL (14.2-18.0) Hematocrit 26.4 % (42.0-52.0) Mean Corpuscular Volume 92 FL (80-99) Mean Corpuscular Hemoglobin 32.4 PG (27.0-31.0) Mean Corpuscular Hemoglobin Concent 35.4 G/DL (32.0-36.0) Red Cell Distribution Width 12.6 % (11.6-14.8) Platelet Count 117 K/UL (150-450) Mean Platelet Volume 6.2 FL (6.5-10.1) Neutrophils (%) (Auto) 64.2 % (45.0-75.0) Lymphocytes (%) (Auto) 24.8 % (20.0-45.0) Monocytes (%) (Auto) 5.0 % (1.0-10.0) Eosinophils (%) (Auto) 4.3 % (0.0-3.0) Basophils (%) (Auto) 1.7 % (0.0-2.0) Prothrombin Time 10.7 SEC (9.30-11.50) Prothromb Time International Ratio 1.0 (0.9-1.1) Activated Partial Thromboplast Time 29 SEC (23-33) Sodium Level 141 MMOL/L (136-145) Potassium Level 3.8 MMOL/L (3.5-5.1) Chloride Level 108 MMOL/L (98-107) Carbon Dioxide Level 27 MMOL/L (21-32) Anion Gap 6 mmol/L (5-15) Blood Urea Nitrogen 12 mg/dL (7-18) Creatinine 0.9 MG/DL (0.55-1.30) Estimat Glomerular Filtration Rate mL/min (>60) Glucose Level 115 MG/DL (74-106) Calcium Level 8.3 MG/DL (8.5-10.1) Vancomycin Level Trough 12.1 ug/mL (5.0-12.0) Height (Feet): 5 Height (Inches): 0.00 Weight (Pounds): 144 Objective Gen: Nad Pulm: Ctab CV: rrr, no mgr Abd: soft, nt, nd Ext: b/l nka noted, dressings+ Oseas Tong MD Dec 12, 2018 11:52
[2018-12-12 12:00] VITALS: BP 114/65
--- NOTE | 2018-12-12 13:28 | 48 Hour Post Anesthesia Eval ---
Post Anesthesia Evaluation Procedure: I&D right BKA wound Date of Evaluation: Dec 12, 2018 Time of Evaluation: 13:26 Blood Pressure Systolic: 122 0: 56 Pulse Rate: 72 Respiratory Rate: 20 Temperature (Fahrenheit): 97.6 O2 Sat by Pulse Oximetry: 98 Airway: patent Nausea: No Vomiting: No Pain Intensity: 2 Hydration Status: adequate Cardiopulmonary Status: stable Mental Status/LOC: patient returned to baseline Follow-up Care/Observations: n/a Post-Anesthesia Complications: none Follow-up care needed: N/A Morteza Gaitan MD Dec 12, 2018 13:28
[2018-12-12 16:00] VITALS: BP 108/70
[2018-12-12 20:00] VITALS: BP 104/63
[2018-12-12] MEDS: Dyna-Hex 2% Top Sol 2oz TOPIC SCH (20:56)
[2018-12-12] MEDS: Sennosides 8.6mg tab ORAL SCH ×2 (20:56→23:11)
--- NOTE | 2018-12-12 21:33 | General Progress Note ---
Assessment/Plan Problem List: (1) Leg pain ICD Codes: M79.606 - Leg pain SNOMED: 11427278 (2) Anemia ICD Codes: D64.9 - Anemia, unspecified SNOMED: 381875066 (3) Amputation stump infection ICD Codes: T87.40 - Infection of amputation stump, unspecified extremity SNOMED: 296828271 (4) Postoperative wound closure planning ICD Codes: Z48.1 - Encounter for planned postprocedural wound closure SNOMED: 041706642 (5) Stump injury ICD Codes: T14.8 - Other injury of unspecified body region SNOMED: 397922768 (6) Infection of amputation stump, right lower extremity ICD Codes: T87.43 - Infection of amputation stump, right lower extremity SNOMED: 648902246, 351303092 Status: stable, progressing Assessment/Plan: stump site wound dehiscence and infection I&d per dr bruce and dr duarte continue iv afx debridement done per dr duarte wound vac placed by surgeon Subjective ROS Limited/Unobtainable: Yes Allergies: Coded Allergies: No Known Allergies (Unverified , 01/04/17) Objective Last 24 Hour Vital Signs Date Time Temp Pulse Resp B/P (MAP) Pulse Ox O2 Delivery O2 Flow Rate FiO2 12/12/18 18:22 98.6 12/12/18 16:00 98.6 75 18 108/70 (83) 95 12/12/18 13:28 72 20 98 12/12/18 12:00 96.7 67 18 114/65 (81) 99 12/12/18 08:21 Room Air 12/12/18 08:00 96.2 66 18 123/62 (82) 99 12/12/18 00:00 97.7 73 18 95/46 (62) 95 12/11/18 23:19 Room Air Intake and Output 12/11/18 12/12/18 19:00 07:00 Intake Total 1650 ml Output Total 265 ml Balance 1385 ml Intake Oral 550 ml IV Total 1100 ml Output Urine Total 250 ml Estimated Blood Loss 15 ml # Voids 2 Height (Feet): 5 Height (Inches): 0.00 Weight (Pounds): 144 Cardiovascular: normal rate Respiratory/Chest: lungs clear Abdomen: soft Rossy Samuel MD Dec 12, 2018 21:33
[2018-12-12] MEDS: Iron Sucrose 100 MG in NS 55 ML IV SCH (22:19)
[2018-12-12] MEDS: Vancomycin 1.25gm/NS Premix q24h IVPB SCH (23:01)
[2018-12-13] VITALS: BP 86/60
[2018-12-13] MEDS: Sennosides 8.6mg tab ORAL SCH ×2 (01:15→07:12)
[2018-12-13 04:00] VITALS: BP 94/57
[2018-12-13 08:00] VITALS: BP 94/57
[2018-12-13] MEDS: Levofloxacin 750mg tab ORAL SCH (08:04)
--- NOTE | 2018-12-13 10:48 | Surgery Progress Note ---
Surgery Progress Note Subjective Symptoms: improved, tolerating diet, voiding well, passing flatus, pain decreased Objective Last 24 Hour Vital Signs Date Time Temp Pulse Resp B/P (MAP) Pulse Ox O2 Delivery O2 Flow Rate FiO2 12/13/18 08:34 98.0 12/13/18 08:00 97.9 72 18 94/57 (69) 95 12/13/18 07:45 Room Air 12/13/18 04:00 98.0 53 18 94/57 (69) 97 12/13/18 00:00 97.7 78 20 86/60 (69) 97 12/12/18 21:00 Room Air 12/12/18 20:00 98.7 77 18 104/63 (77) 96 12/12/18 18:22 98.6 12/12/18 16:00 98.6 75 18 108/70 (83) 95 12/12/18 13:28 72 20 98 12/12/18 12:00 96.7 67 18 114/65 (81) 99 I&O Intake and Output 12/12/18 12/13/18 19:00 07:00 Intake Total 1100 ml 900 ml Output Total 1705 ml 400 ml Balance -605 ml 500 ml Intake Oral 1100 ml IV Total 900 ml Output Urine Total 1685 ml 400 ml Drainage Total 20 ml # Voids 2 Dressing: other Wound: other Drains: wound vac Cardiovascular: RSR Respiratory: clear Abdomen: soft, non-tender, present bowel sounds Extremities: edema, tenderness, no cyanosis, other Plan Problems: (1) Amputation stump infection Assessment & Plan: bilateral lower extremity below-knee amputations. On the right side the recent revision flap has dehisced and serous purulent drainage identified with viable sutures and palpable bone. On the left side the flap is intact on the medial aspect there is drainage coming from the wound bed in between the barbara. There is an opening on the lateral aspect approximately 2 cm x 2 cm with unknown depth given its location. We will currently continue with localized wound care as I discussed with the operating orthopedic surgeon about potential management. I discussed with the patient the current findings and the potential necessity for reoperation versus ray amputation. Versus potential salvage. Continue with IV antibiotics s/p debridement by plastic surgery 12/11 wound vac placed today by myself 12/12 d/c planning With follow with local wound care and evaluation We will discuss with orthopedic and medical team Thank you for allowing participate patient's care (2) Sacral decubitus ulcer Assessment & Plan: This is a 88-year-old male with multiple small full- thickness sacral decubitus ulcers. Patient states that he formed because he was laying flat for 15 days at an outside facility. Identified upon admission and initiated care plan. Periwound seems to have prior healing areas as well as acute inflamed areas with full-thickness breakdown approximately 1 cm x 1 cm on the left buttock/sacral cleft and similarly on the right as well. No active drainage. No foul order. Pt presented on admission with keloid scar with hyperpigmentation sacrum from previous pressure injury;confirmed by pt. Dry loose skin noted to R and L sacrum. No open areas noted. Pt denied tenderness when site palpated. Pt resistive to being repositioned on his sides and was educated of potential risks for already compromised skin to breakdown . Pt demonstrated ability to reposition self when cued.Demonstrated to pt on how to utilize side rails to off -lift buttocks and shift weight in bed. Skin lesions noted to R and L scalp. Pt verbalized he has skin cancer and lesions were recently removed. Hypergranular skin lesions also noted to Lateral L thigh. Apply Moisture Barrier Paste to Sacrum. Cover with Optifoam drsg. Change every 3 days and prn. Encourage and assist with repositioning at least every 2hours or as tolerated.Elevate BKA stumps on pillow. Turn every 2 hours. Patient willing and does assist with ensuring that he turns every so often Offload stump pressures with pillow Thank you for allowing me to participate in patient's care will follow with recommendations (3) Postoperative wound closure planning (4) Stump injury Assessment & Plan: s/p debridement by plastic surgery 12/11 wound vac placed today by myself 12/12 d/c planning plan for VAC upon discharge to SNF if decides he would like amputation will be available Findings: X-ray better demonstrates signs of recent surgery with surgical clips barbara at the site of a below the knee amputation. The cortical margin at the tibial stump appears intact both on x-ray and MRI. MRI examination does demonstrate bone marrow edema in the anterior inferior aspect of the tibial stump. Adjacent soft tissue swelling is present. Given recent surgery the soft tissue changes are expected. The bone marrow edema could be reactive marrow edema or due to osteomyelitis. Suspect the former. Similar signal alteration noted within the left tibial stump (left lower extremity partially imaged on this study on the transcoronal sequences). thank you (5) Infection of amputation stump, right lower extremity Jaiden Teresa Dec 13, 2018 10:48
[2018-12-13 12:00] VITALS: BP 98/60
--- NOTE | 2018-12-13 12:30 | Operative Note - Dictated ---
DATE OF OPERATION: 12/11/2018 SURGEON: Andrew Roldan M.D. ANESTHESIOLOGIST: Dr. Bethany Willard. PREOPERATIVE DIAGNOSIS: Right BKA stump wound. POSTOPERATIVE DIAGNOSIS: Right BKA stump wound. OPERATION: Excisional debridement of right BKA stump wound with deep open bone biopsy of the tibia and bone cultures. ANESTHESIA: General endotracheal anesthesia. OPERATIVE INDICATIONS: This is a 88-year-old male, who underwent a right BKA stump revision with orthopedic surgeon two weeks ago. He developed an infection, which led to a stump incision dehiscence. He was admitted to the hospital, was treated with IV antibiotics and on evaluation, his wound was noted to have significant slough as well as Prolene, Ethibond sutures exposed. As this infection began to subside, decision was made to take him to the operating room for debridement. He had an MRI prior to this, which is equivocal between osteomyelitis and reactive changes due to his recent surgery. The operative plan was devised and agreed upon and once he was consented, he was scheduled for elective surgery. OPERATIVE PROCEDURE: The patient was seen preoperatively and the plan was discussed and agreed upon. He was taken back to the operating room, placed on the operating table in supine position. Once general endotracheal anesthesia was induced, his right lower extremity was prepped and draped in usual sterile fashion. Time-out was performed. Then, 20 mL of 1% lidocaine with 1:200,000 epinephrine was injected into the area. The barbara and Prolene and Ethibond sutures that were visible were removed. At this point, a #15 blade was used to freshen up the skin edges as well as sharply excised the slough that was at the base of the ulcer. This came down to healthy appearing muscle. There was tibia exposed at 12 o'clock and this was biopsied for osteomyelitis as well as cultured. This was done using a rongeur. At this point, final pulse irrigation was performed with triple antibiotic solution of Ancef, gentamicin, and bacitracin, total of 1 liter. Hemostasis was then obtained and then the area was packed with wet-to-dry Kerlix and saline and then wrapped with gauze, ABD, Kerlix, and Abebe wrap. Total measurement of the wound was 4.5 cm in length and 9 cm in width. The patient tolerated the procedure well. He was extubated at the end of the procedure, taken to recovery room. No complications. ESTIMATED BLOOD LOSS: Minimal. SPECIMENS: Included bone for pathology as well as bone for anaerobic and aerobic cultures. Andrew Roldan M.D. DR: JAMES JOB#: [id number] CC:
--- NOTE | 2018-12-13 14:33 | Infectious Diseases Prog Note ---
Assessment/Plan Assessment/Plan IMPRESSION: 1. Amputation stump infection, more in the right side. - cultures; MRSA, Enterococcus & Proteus - bone biopsy, like acute osteomyelitis 2 wound dehiscence of right amputation stump. 3. Anemia. 4. Hypothyroidism. 5. History of melanoma. RECOMMENDATIONS: 1. We will continue with Levaquin and vancomycin X34 2. Check BMP & Vancomycin level weekly in detention Subjective ROS Limited/Unobtainable: Yes Constitutional: Reports: no symptoms Musculoskeletal: Reports: pain, other - controlled Allergies: Coded Allergies: No Known Allergies (Unverified , 01/04/17) Objective Vital Signs Last 24 Hour Vital Signs Date Time Temp Pulse Resp B/P (MAP) Pulse Ox O2 Delivery O2 Flow Rate FiO2 12/13/18 12:00 97.5 76 19 98/60 (73) 95 12/13/18 11:31 98.0 12/13/18 08:00 97.9 72 18 94/57 (69) 95 12/13/18 07:45 Room Air 12/13/18 04:00 98.0 53 18 94/57 (69) 97 12/13/18 00:00 97.7 78 20 86/60 (69) 97 12/12/18 21:00 Room Air 12/12/18 20:00 98.7 77 18 104/63 (77) 96 12/12/18 18:22 98.6 12/12/18 16:00 98.6 75 18 108/70 (83) 95 Height (Feet): 5 Height (Inches): 0.00 Weight (Pounds): 149 General Appearance: no acute distress HEENT: mucous membranes moist Respiratory/Chest: lungs clear Cardiovascular: normal rate, other - left arm PICC line Extremities: no edema, other - bilateral BKA Skin: ulcers, other - on ampution stumps Neurologic/Psychiatric: alert, oriented x 3, responsive Microbiology Date/Time Source Procedure Growth Status 12/11/18 08:08 Other Gram Stain - Final Resulted 12/11/18 08:08 Aerobic Culture - Preliminary Staphylococcus Aureus - Mrsa Proteus Mirabilis Gram Positive Cocci Resulted Laboratory Tests Test 12/13/18 12:25 Stool Occult Blood Positive (NEGATIVE) Current Medications Medications (Trade) Dose Ordered Sig/Trever Route PRN Reason Start Time Stop Time Status Last Admin Dose Admin Acetaminophen (Tylenol) 500 mg Q8H PRN ORAL Moderate Pain (Pain Scale 4-6) 12/05/18 23:15 01/04/19 23:14 Acetaminophen (Tylenol) 650 mg Q4H PRN ORAL Mild Pain/Temp > 100.5 12/05/18 23:15 01/04/19 23:14 Al Hydroxide/Mg Hydroxide (Mylanta II) 10 ml Q4H PRN ORAL indegestion 12/05/18 23:15 01/04/19 23:14 Bisacodyl (Dulcolax) 10 mg DAILYPRN PRN RECTAL Constipation 12/05/18 23:15 01/04/19 23:14 Chlorhexidine Gluconate (Sammie-Hex 2%) 1 applic DAILY@2000 TOPIC 12/06/18 20:00 01/05/19 19:59 12/12/18 20:56 Hydromorphone HCl (Dilaudid) 2 mg Q3H PRN IVP Severe Pain (Pain Scale 7-10) 12/13/18 01:15 12/20/18 01:14 12/13/18 13:58 Levofloxacin (Levaquin) 750 mg Q48H ORAL 12/09/18 09:00 12/16/18 08:59 12/13/18 08:04 Levothyroxine Sodium (Synthroid) 200 mcg DAILY@0630 ORAL 12/06/18 06:30 01/05/19 06:29 12/13/18 06:19 Magnesium Hydroxide (Mom) 30 ml DAILYPRN PRN ORAL Constipation 12/05/18 23:15 01/04/19 23:14 Pantoprazole (Protonix) 40 mg DAILY ORAL 12/06/18 09:00 01/05/19 08:59 12/11/18 10:00 Sennosides (Senokot) 17.2 mg BEDTIME ORAL 12/06/18 21:00 01/05/19 20:59 12/06/18 20:34 Sodium Chloride 1,000 ml @ 75 mls/hr [id number] IV 12/10/18 09:45 01/09/19 09:44 12/13/18 06:19 Vancomycin HCl (Vanco rx to dose) 1 ea DAILY PRN MISC Per rx protocol 12/06/18 06:15 01/05/19 06:14 Vancomycin/Sodium Chloride 275 ml @ 183.333 mls/hr Q24H IVPB 12/08/18 22:00 12/17/18 21:59 12/12/18 23:01 Partha Obrien MD Dec 13, 2018 14:33
[2018-12-13] MEDS ORDERED: LEVAQUIN500 MG ORAL (15:14)
[2018-12-13] MEDS ORDERED: VANCOMYCIN1.5 GM/300 IV (15:19)
--- NOTE | 2018-12-13 15:40 | Hematology/Onc Progress Note ---
Assessment/Plan Assessment/Plan IMPRESSION/RECS: # Anemia due to underlying iron deficiency, r/o gi bleed - also with multifactorial component --> anemia panel reviewed and noted with Iron def --> has been started on iv iron x 5 day course --> hgb transfuse if hgb lower than 7 --> hgb trend 10.6-->10.1-->9.9-->9.3 --> occult pending ++, dw pcp, outpatient w/u # History of melanoma. --> currently in remission # Amputation stump infection, more in the right side. appears likely osteo --> on cefepime/vanc--> leva/vanc x 34 d --> as per id recs --> surg, pod recs # Wound dehiscence of right amputation stump. --> eval with surg, pod # Hypothyroidism. --> started on synthroid # Dvt ppx consider lovenox if h/h stable Time of note does not necessarily correspond to when patient seen Greatly appreciate consultation. Subjective Constitutional: Denies: no symptoms, chills, fever, malaise, weakness, other HEENT: Denies: no symptoms, eye pain, blurred vision, tearing, double vision, ear pain, ear discharge, nose pain, nose congestion, throat pain, throat swelling, mouth pain, mouth swelling, other Cardiovascular: Denies: no symptoms, chest pain, edema, irregular heart rate, lightheadedness, palpitations, syncope, other Respiratory: Denies: no symptoms, cough, shortness of breath, SOB with excertion, SOB at rest, sputum, wheezing, other Gastrointestinal/Abdominal: Denies: no symptoms, abdomen distended, abdominal pain, black stools, tarry stools, blood in stool, constipated, diarrhea, difficulty swallowing, nausea, poor appetite, poor fluid intake, rectal bleeding , vomiting, other Genitourinary: Denies: no symptoms, burning, discharge, frequency, flank pain, hematuria, incontinence, pain, urgency, other Neurologic/Psychiatric: Denies: no symptoms, anxiety, depressed, emotional problems, headache, numbness, paresthesia, pre-existing deficit, seizure, tingling, tremors, weakness, other Endocrine: Denies: no symptoms, excessive sweating, flushing, intolerance to cold, intolerance to heat, increased hunger, increased thirst, increased urine, unexplained weight gain, unexplained weight loss, other Allergies: Coded Allergies: No Known Allergies (Unverified , 01/04/17) Subjective 12/09: no events, remains on abx, has been started on iv iron, hgb 9.9 12/11: s/p right leg wound debridement, cultures pending 12/12: vs stable, on abx, cultures noted, bleeding noted on dressing 12/13: no bleeding or chills, labs reviewed, no major night sweats Objective Objective Current Medications Medications (Trade) Dose Ordered Sig/Trever Route PRN Reason Start Time Stop Time Status Last Admin Dose Admin Acetaminophen (Tylenol) 500 mg Q8H PRN ORAL Moderate Pain (Pain Scale 4-6) 12/05/18 23:15 01/04/19 23:14 Acetaminophen (Tylenol) 650 mg Q4H PRN ORAL Mild Pain/Temp > 100.5 12/05/18 23:15 01/04/19 23:14 Al Hydroxide/Mg Hydroxide (Mylanta II) 10 ml Q4H PRN ORAL indegestion 12/05/18 23:15 01/04/19 23:14 Bisacodyl (Dulcolax) 10 mg DAILYPRN PRN RECTAL Constipation 12/05/18 23:15 01/04/19 23:14 Chlorhexidine Gluconate (Sammie-Hex 2%) 1 applic DAILY@1999 TOPIC 12/06/18 20:00 01/05/19 19:59 12/12/18 20:56 Hydromorphone HCl (Dilaudid) 2 mg Q3H PRN IVP Severe Pain (Pain Scale 7-10) 12/13/18 01:15 12/20/18 01:14 12/13/18 13:58 Levofloxacin (Levaquin) 750 mg Q48H ORAL 12/09/18 09:00 12/16/18 08:59 12/13/18 08:04 Levothyroxine Sodium (Synthroid) 200 mcg DAILY@0630 ORAL 12/06/18 06:30 01/05/19 06:29 12/13/18 06:19 Magnesium Hydroxide (Mom) 30 ml DAILYPRN PRN ORAL Constipation 12/05/18 23:15 01/04/19 23:14 Pantoprazole (Protonix) 40 mg DAILY ORAL 12/06/18 09:00 01/05/19 08:59 12/11/18 10:00 Sennosides (Senokot) 17.2 mg BEDTIME ORAL 12/06/18 21:00 01/05/19 20:59 12/06/18 20:34 Sodium Chloride 1,000 ml @ 75 mls/hr [id number] IV 12/10/18 09:45 01/09/19 09:44 12/13/18 06:19 Vancomycin HCl (Vanco rx to dose) 1 ea DAILY PRN MISC Per rx protocol 12/06/18 06:15 01/05/19 06:14 Vancomycin/Sodium Chloride 275 ml @ 183.333 mls/hr Q24H IVPB 12/08/18 22:00 12/17/18 21:59 12/12/18 23:01 Last 24 Hour Vital Signs Date Time Temp Pulse Resp B/P (MAP) Pulse Ox O2 Delivery O2 Flow Rate FiO2 12/13/18 14:28 97.5 12/13/18 12:00 97.5 76 19 98/60 (73) 95 12/13/18 08:00 97.9 72 18 94/57 (69) 95 12/13/18 07:45 Room Air 12/13/18 04:00 98.0 53 18 94/57 (69) 97 12/13/18 00:00 97.7 78 20 86/60 (69) 97 12/12/18 21:00 Room Air 12/12/18 20:00 98.7 77 18 104/63 (77) 96 12/12/18 18:22 98.6 12/12/18 16:00 98.6 75 18 108/70 (83) 95 12/12/18 13:28 72 20 98 12/12/18 12:00 96.7 67 18 114/65 (81) 99 12/12/18 08:21 Room Air 12/12/18 08:00 96.2 66 18 123/62 (82) 99 12/12/18 00:00 97.7 73 18 95/46 (62) 95 12/11/18 23:19 Room Air 12/11/18 20:00 97.7 85 18 98/48 (65) 97 12/11/18 16:00 97.9 68 18 126/76 (93) 97 Intake and Output 12/12/18 12/13/18 19:00 07:00 Intake Total 1100 ml 900 ml Output Total 1705 ml 400 ml Balance -605 ml 500 ml Intake Oral 1100 ml IV Total 900 ml Output Urine Total 1685 ml 400 ml Drainage Total 20 ml # Voids 2 Labs Test 12/11/18 21:00 12/13/18 12:25 White Blood Count 4.8 K/UL (4.8-10.8) Red Blood Count 2.88 M/UL (4.70-6.10) Hemoglobin 9.3 G/DL (14.2-18.0) Hematocrit 26.4 % (42.0-52.0) Mean Corpuscular Volume 92 FL (80-99) Mean Corpuscular Hemoglobin 32.4 PG (27.0-31.0) Mean Corpuscular Hemoglobin Concent 35.4 G/DL (32.0-36.0) Red Cell Distribution Width 12.6 % (11.6-14.8) Platelet Count 117 K/UL (150-450) Mean Platelet Volume 6.2 FL (6.5-10.1) Neutrophils (%) (Auto) 64.2 % (45.0-75.0) Lymphocytes (%) (Auto) 24.8 % (20.0-45.0) Monocytes (%) (Auto) 5.0 % (1.0-10.0) Eosinophils (%) (Auto) 4.3 % (0.0-3.0) Basophils (%) (Auto) 1.7 % (0.0-2.0) Prothrombin Time 10.7 SEC (9.30-11.50) Prothromb Time International Ratio 1.0 (0.9-1.1) Activated Partial Thromboplast Time 29 SEC (23-33) Sodium Level 141 MMOL/L (136-145) Potassium Level 3.8 MMOL/L (3.5-5.1) Chloride Level 108 MMOL/L (98-107) Carbon Dioxide Level 27 MMOL/L (21-32) Anion Gap 6 mmol/L (5-15) Blood Urea Nitrogen 12 mg/dL (7-18) Creatinine 0.9 MG/DL (0.55-1.30) Estimat Glomerular Filtration Rate mL/min (>60) Glucose Level 115 MG/DL (74-106) Calcium Level 8.3 MG/DL (8.5-10.1) Vancomycin Level Trough 12.1 ug/mL (5.0-12.0) Stool Occult Blood Positive (NEGATIVE) Height (Feet): 5 Height (Inches): 0.00 Weight (Pounds): 149 Objective Gen: Nad Pulm: Ctab CV: rrr, no mgr Abd: soft, nt, nd Ext: b/l nka noted, dressings+ Oseas Tong MD Dec 13, 2018 15:40
[2018-12-13 16:00] VITALS: BP 104/64
[2018-12-13 20:00] VITALS: BP 102/65
[2018-12-13] MEDS: Dyna-Hex 2% Top Sol 2oz TOPIC SCH (20:04)
[2018-12-13] MEDS: Vancomycin 1.25gm/NS Premix q24h IVPB SCH (21:10)
[2018-12-14] VITALS: BP 102/62
[2018-12-14 04:00] VITALS: BP 111/60
--- NOTE | 2018-12-14 04:00 | Progress Note ---
DATE: 12/13/2018 SUBJECTIVE: They are waiting for placement. The patient is wound VAC. There was some bleeding at the surgical site yesterday, which has improved. Surgeon has cleared the patient. Antibiotics per Dr. Partha Obrien. Afebrile. ASSESSMENT AND PLAN: Cellulitis, infection and wound dehiscence at the stump site, status post I and D by the surgeon. Antibiotics per Infectious Disease. . Hemodynamically stable. The patient's wound VAC is in place. Rossy Samuel M.D. DR: BETHANIE JOB#: [id number] CC:
[2018-12-14 08:00] VITALS: BP 115/63
--- NOTE | 2018-12-14 09:01 | Hematology/Onc Progress Note ---
Assessment/Plan Assessment/Plan IMPRESSION/RECS: # Anemia due to underlying iron deficiency, r/o gi bleed - also with multifactorial component --> anemia panel reviewed and noted with Iron def --> has been started on iv iron x 5 day course --> hgb transfuse if hgb lower than 7 --> hgb trend 10.6-->10.1-->9.9-->9.3 --> HOLDING OFF LABS q3 days --> occult pending ++, dw pcp, outpatient w/u # History of melanoma. --> currently in remission # Amputation stump infection, more in the right side. Appears likely osteo --> on cefepime/vanc--> leva/vanc x 34 d --> as per id recs --> surg, pod recs # Wound dehiscence of right amputation stump. --> eval with surg, pod # Hypothyroidism. --> started on synthroid # Dvt ppx scds Time of note does not necessarily correspond to when patient seen Greatly appreciate consultation. Subjective Constitutional: Denies: no symptoms, chills, fever, malaise, weakness, other HEENT: Denies: no symptoms, eye pain, blurred vision, tearing, double vision, ear pain, ear discharge, nose pain, nose congestion, throat pain, throat swelling, mouth pain, mouth swelling, other Cardiovascular: Denies: no symptoms, chest pain, edema, irregular heart rate, lightheadedness, palpitations, syncope, other Respiratory: Denies: no symptoms, cough, shortness of breath, SOB with excertion, SOB at rest, sputum, wheezing, other Gastrointestinal/Abdominal: Denies: no symptoms, abdomen distended, abdominal pain, black stools, tarry stools, blood in stool, constipated, diarrhea, difficulty swallowing, nausea, poor appetite, poor fluid intake, rectal bleeding , vomiting, other Neurologic/Psychiatric: Denies: no symptoms, anxiety, depressed, emotional problems, headache, numbness, paresthesia, pre-existing deficit, seizure, tingling, tremors, weakness, other Endocrine: Denies: no symptoms, excessive sweating, flushing, intolerance to cold, intolerance to heat, increased hunger, increased thirst, increased urine, unexplained weight gain, unexplained weight loss, other Hematologic/Lymphatic: Denies: no symptoms, anemia, easy bleeding, easy bruising, adenopathy, other Allergies: Coded Allergies: No Known Allergies (Unverified , 01/04/17) Subjective 12/09: no events, remains on abx, has been started on iv iron, hgb 9.9 12/11: s/p right leg wound debridement, cultures pending 12/12: vs stable, on abx, cultures noted, bleeding noted on dressing 12/13: no bleeding or chills, labs reviewed, no major night sweats 12/14: no events, no bleeding, wants to take off wound vac and take a shower, no f Objective Objective Current Medications Medications (Trade) Dose Ordered Sig/Trever Route PRN Reason Start Time Stop Time Status Last Admin Dose Admin Acetaminophen (Tylenol) 500 mg Q8H PRN ORAL Moderate Pain (Pain Scale 4-6) 12/05/18 23:15 01/04/19 23:14 Acetaminophen (Tylenol) 650 mg Q4H PRN ORAL Mild Pain/Temp > 100.5 12/05/18 23:15 01/04/19 23:14 Al Hydroxide/Mg Hydroxide (Mylanta II) 10 ml Q4H PRN ORAL indegestion 12/05/18 23:15 01/04/19 23:14 Bisacodyl (Dulcolax) 10 mg DAILYPRN PRN RECTAL Constipation 12/05/18 23:15 01/04/19 23:14 Chlorhexidine Gluconate (Sammie-Hex 2%) 1 applic DAILY@2000 TOPIC 12/06/18 20:00 01/05/19 19:59 12/13/18 20:04 Hydromorphone HCl (Dilaudid) 2 mg Q3H PRN IVP Severe Pain (Pain Scale 7-10) 12/13/18 01:15 12/20/18 01:14 12/14/18 08:17 Levofloxacin (Levaquin) 750 mg Q48H ORAL 12/09/18 09:00 12/16/18 08:59 12/13/18 08:04 Levothyroxine Sodium (Synthroid) 200 mcg DAILY@0630 ORAL 12/06/18 06:30 01/05/19 06:29 12/14/18 04:39 Magnesium Hydroxide (Mom) 30 ml DAILYPRN PRN ORAL Constipation 12/05/18 23:15 01/04/19 23:14 Pantoprazole (Protonix) 40 mg DAILY ORAL 12/06/18 09:00 01/05/19 08:59 12/11/18 10:00 Sennosides (Senokot) 17.2 mg BEDTIME ORAL 12/06/18 21:00 01/05/19 20:59 12/06/18 20:34 Sodium Chloride 1,000 ml @ 75 mls/hr [id number] IV 12/10/18 09:45 01/09/19 09:44 12/13/18 17:07 Temazepam (Restoril) 15 mg HSPRN PRN ORAL Insomnia 12/14/18 00:05 12/21/18 00:04 12/14/18 00:07 Temazepam (Restoril) 30 mg HSPRN PRN ORAL Insomnia 12/13/18 22:15 12/20/18 22:14 12/13/18 22:25 Vancomycin HCl (Vanco rx to dose) 1 ea DAILY PRN MISC Per rx protocol 12/06/18 06:15 01/05/19 06:14 Vancomycin/Sodium Chloride 275 ml @ 183.333 mls/hr Q24H IVPB 12/08/18 22:00 12/17/18 21:59 12/13/18 21:10 Last 24 Hour Vital Signs Date Time Temp Pulse Resp B/P (MAP) Pulse Ox O2 Delivery O2 Flow Rate FiO2 12/14/18 04:00 98.1 84 20 111/60 (77) 93 12/14/18 00:00 98.1 75 20 102/62 (75) 94 12/13/18 21:00 Room Air 12/13/18 20:00 97.9 72 20 102/65 (77) 98 12/13/18 17:38 98.1 12/13/18 16:00 98.1 65 20 104/64 (77) 96 12/13/18 12:00 97.5 76 19 98/60 (73) 95 12/13/18 08:00 97.9 72 18 94/57 (69) 95 12/13/18 07:45 Room Air 12/13/18 04:00 98.0 53 18 94/57 (69) 97 12/13/18 00:00 97.7 78 20 86/60 (69) 97 9/10/19 21:00 Room Air 12/12/18 20:00 98.7 77 18 104/63 (77) 96 12/12/18 18:22 98.6 12/12/18 16:00 98.6 75 18 108/70 (83) 95 12/12/18 13:28 72 20 98 12/12/18 12:00 96.7 67 18 114/65 (81) 99 Intake and Output 12/13/18 12/14/18 18:59 06:59 Intake Total 275 ml 1025.000 ml Output Total 700 ml Balance -425 ml 1025.000 ml Intake Oral 200 ml IV Total 75 ml 1025.000 ml Output Urine Total 700 ml # Voids 1 # Bowel Movements 1 Labs Test 12/11/18 21:00 12/13/18 12:25 White Blood Count 4.8 K/UL (4.8-10.8) Red Blood Count 2.88 M/UL (4.70-6.10) Hemoglobin 9.3 G/DL (14.2-18.0) Hematocrit 26.4 % (42.0-52.0) Mean Corpuscular Volume 92 FL (80-99) Mean Corpuscular Hemoglobin 32.4 PG (27.0-31.0) Mean Corpuscular Hemoglobin Concent 35.4 G/DL (32.0-36.0) Red Cell Distribution Width 12.6 % (11.6-14.8) Platelet Count 117 K/UL (150-450) Mean Platelet Volume 6.2 FL (6.5-10.1) Neutrophils (%) (Auto) 64.2 % (45.0-75.0) Lymphocytes (%) (Auto) 24.8 % (20.0-45.0) Monocytes (%) (Auto) 5.0 % (1.0-10.0) Eosinophils (%) (Auto) 4.3 % (0.0-3.0) Basophils (%) (Auto) 1.7 % (0.0-2.0) Prothrombin Time 10.7 SEC (9.30-11.50) Prothromb Time International Ratio 1.0 (0.9-1.1) Activated Partial Thromboplast Time 29 SEC (23-33) Sodium Level 141 MMOL/L (136-145) Potassium Level 3.8 MMOL/L (3.5-5.1) Chloride Level 108 MMOL/L (98-107) Carbon Dioxide Level 27 MMOL/L (21-32) Anion Gap 6 mmol/L (5-15) Blood Urea Nitrogen 12 mg/dL (7-18) Creatinine 0.9 MG/DL (0.55-1.30) Estimat Glomerular Filtration Rate mL/min (>60) Glucose Level 115 MG/DL (74-106) Calcium Level 8.3 MG/DL (8.5-10.1) Vancomycin Level Trough 12.1 ug/mL (5.0-12.0) Stool Occult Blood Positive (NEGATIVE) Height (Feet): 5 Height (Inches): 0.00 Weight (Pounds): 149 Objective Gen: Nad Pulm: Ctab CV: rrr, no mgr Abd: soft, nt, nd Ext: b/l nka noted, dressings+ Oseas Tong MD Dec 14, 2018 09:01
[2018-12-14 12:00] VITALS: BP 104/59
--- NOTE | 2018-12-14 12:00 | Infectious Diseases Prog Note ---
Assessment/Plan Assessment/Plan IMPRESSION: 1. Amputation stump infection, more in the right side. - cultures; MRSA, Enterococcus ( VRE & Proteus - bone biopsy, like acute osteomyelitis 2 wound dehiscence of right amputation stump. 3. Anemia. 4. Hypothyroidism. 5. History of melanoma. RECOMMENDATIONS: 1. We will continue with Levaquin X 33 days 2. Change Vancomycin to PO Zyvox, 3, continue Zyvox X 33 days Subjective ROS Limited/Unobtainable: No Constitutional: Reports: no symptoms Respiratory: Reports: no symptoms Cardiovascular: Reports: no symptoms Gastrointestinal/Abdominal: Reports: no symptoms Musculoskeletal: Reports: pain Allergies: Coded Allergies: No Known Allergies (Unverified , 01/04/17) Objective Vital Signs Last 24 Hour Vital Signs Date Time Temp Pulse Resp B/P (MAP) Pulse Ox O2 Delivery O2 Flow Rate FiO2 12/14/18 11:39 98.1 12/14/18 09:00 Room Air 12/14/18 08:00 98.3 80 20 115/63 (80) 96 12/14/18 04:00 98.1 84 20 111/60 (77) 93 12/14/18 00:00 98.1 75 20 102/62 (75) 94 12/13/18 21:00 Room Air 12/13/18 20:00 97.9 72 20 102/65 (77) 98 12/13/18 16:00 98.1 65 20 104/64 (77) 96 12/13/18 12:00 97.5 76 19 98/60 (73) 95 Height (Feet): 5 Height (Inches): 0.00 Weight (Pounds): 149 General Appearance: no acute distress HEENT: mucous membranes moist Respiratory/Chest: lungs clear Cardiovascular: normal rate, other - left arm PICC line Abdomen: soft, non tender Extremities: no edema, other - Bilateral BKA Skin: ulcers, other - stumps Neurologic/Psychiatric: alert, oriented x 3, responsive Laboratory Tests Test 12/13/18 12:25 Stool Occult Blood Positive (NEGATIVE) Current Medications Medications (Trade) Dose Ordered Sig/Trever Route PRN Reason Start Time Stop Time Status Last Admin Dose Admin Acetaminophen (Tylenol) 500 mg Q8H PRN ORAL Moderate Pain (Pain Scale 4-6) 12/05/18 23:15 01/04/19 23:14 Acetaminophen (Tylenol) 650 mg Q4H PRN ORAL Mild Pain/Temp > 100.5 12/05/18 23:15 01/04/19 23:14 Al Hydroxide/Mg Hydroxide (Mylanta II) 10 ml Q4H PRN ORAL indegestion 12/05/18 23:15 01/04/19 23:14 Bisacodyl (Dulcolax) 10 mg DAILYPRN PRN RECTAL Constipation 12/05/18 23:15 01/04/19 23:14 Chlorhexidine Gluconate (Sammie-Hex 2%) 1 applic DAILY@2000 TOPIC 12/06/18 20:00 01/05/19 19:59 12/13/18 20:04 Hydromorphone HCl (Dilaudid) 2 mg Q3H PRN IVP Severe Pain (Pain Scale 7-10) 12/13/18 01:15 12/20/18 01:14 12/14/18 11:09 Levofloxacin (Levaquin) 750 mg Q48H ORAL 12/09/18 09:00 12/16/18 08:59 12/13/18 08:04 Levothyroxine Sodium (Synthroid) 200 mcg DAILY@0630 ORAL 12/06/18 06:30 01/05/19 06:29 12/14/18 04:39 Magnesium Hydroxide (Mom) 30 ml DAILYPRN PRN ORAL Constipation 12/05/18 23:15 01/04/19 23:14 Pantoprazole (Protonix) 40 mg DAILY ORAL 12/06/18 09:00 01/05/19 08:59 12/11/18 10:00 Sennosides (Senokot) 17.2 mg BEDTIME ORAL 12/06/18 21:00 01/05/19 20:59 12/06/18 20:34 Sodium Chloride 1,000 ml @ 75 mls/hr [id number] IV 12/10/18 09:45 01/09/19 09:44 12/14/18 11:16 Temazepam (Restoril) 15 mg HSPRN PRN ORAL Insomnia 12/14/18 00:05 12/21/18 00:04 12/14/18 00:07 Temazepam (Restoril) 30 mg HSPRN PRN ORAL Insomnia 12/13/18 22:15 12/20/18 22:14 12/13/18 22:25 Vancomycin HCl (Vanco rx to dose) 1 ea DAILY PRN MISC Per rx protocol 12/06/18 06:15 01/05/19 06:14 Vancomycin/Sodium Chloride 275 ml @ 183.333 mls/hr Q24H IVPB 12/08/18 22:00 12/17/18 21:59 12/13/18 21:10 Partha Obrien MD Dec 14, 2018 12:00
--- NOTE | 2018-12-14 14:29 | Surgery Progress Note ---
Surgery Progress Note Subjective Symptoms: improved, tolerating diet, voiding well, passing flatus, pain decreased Objective Last 24 Hour Vital Signs Date Time Temp Pulse Resp B/P (MAP) Pulse Ox O2 Delivery O2 Flow Rate FiO2 12/14/18 12:00 97.0 71 20 104/59 (74) 94 12/14/18 11:39 98.1 12/14/18 09:00 Room Air 12/14/18 08:00 98.3 80 20 115/63 (80) 96 12/14/18 04:00 98.1 84 20 111/60 (77) 93 12/14/18 00:00 98.1 75 20 102/62 (75) 94 12/13/18 21:00 Room Air 12/13/18 20:00 97.9 72 20 102/65 (77) 98 12/13/18 16:00 98.1 65 20 104/64 (77) 96 I&O Intake and Output 12/13/18 12/14/18 19:00 07:00 Intake Total 275 ml 950.000 ml Output Total 700 ml Balance -425 ml 950.000 ml Intake Oral 200 ml IV Total 75 ml 950.000 ml Output Urine Total 700 ml # Voids 1 # Bowel Movements 1 Dressing: dry Wound: clean Drains: wound vac Cardiovascular: RSR Respiratory: clear Abdomen: soft, non-tender, present bowel sounds, non-distended Extremities: no cyanosis, other Plan Problems: (1) Amputation stump infection Assessment & Plan: bilateral lower extremity below-knee amputations. On the right side the recent revision flap has dehisced and serous purulent drainage identified with viable sutures and palpable bone. On the left side the flap is intact on the medial aspect there is drainage coming from the wound bed in between the barbara. There is an opening on the lateral aspect approximately 2 cm x 2 cm with unknown depth given its location. We will currently continue with localized wound care as I discussed with the operating orthopedic surgeon about potential management. I discussed with the patient the current findings and the potential necessity for reoperation versus ray amputation. Versus potential salvage. Continue with IV antibiotics s/p debridement by plastic surgery 12/11 wound vac placed today by myself 12/12 d/c planning With follow with local wound care and evaluation We will discuss with orthopedic and medical team Thank you for allowing participate patient's care (2) Sacral decubitus ulcer Assessment & Plan: This is a 88-year-old male with multiple small full- thickness sacral decubitus ulcers. Patient states that he formed because he was laying flat for 15 days at an outside facility. Identified upon admission and initiated care plan. Periwound seems to have prior healing areas as well as acute inflamed areas with full-thickness breakdown approximately 1 cm x 1 cm on the left buttock/sacral cleft and similarly on the right as well. No active drainage. No foul order. Pt presented on admission with keloid scar with hyperpigmentation sacrum from previous pressure injury;confirmed by pt. Dry loose skin noted to R and L sacrum. No open areas noted. Pt denied tenderness when site palpated. Pt resistive to being repositioned on his sides and was educated of potential risks for already compromised skin to breakdown . Pt demonstrated ability to reposition self when cued.Demonstrated to pt on how to utilize side rails to off -lift buttocks and shift weight in bed. Skin lesions noted to R and L scalp. Pt verbalized he has skin cancer and lesions were recently removed. Hypergranular skin lesions also noted to Lateral L thigh. Apply Moisture Barrier Paste to Sacrum. Cover with Optifoam drsg. Change every 3 days and prn. Encourage and assist with repositioning at least every 2hours or as tolerated.Elevate BKA stumps on pillow. Turn every 2 hours. Patient willing and does assist with ensuring that he turns every so often Offload stump pressures with pillow Thank you for allowing me to participate in patient's care will follow with recommendations (3) Postoperative wound closure planning (4) Stump injury Assessment & Plan: s/p debridement by plastic surgery 12/11 wound vac placed today by myself 12/12 d/c planning plan for VAC upon discharge to SNF if decides he would like amputation will be available Findings: X-ray better demonstrates signs of recent surgery with surgical clips barbara at the site of a below the knee amputation. The cortical margin at the tibial stump appears intact both on x-ray and MRI. MRI examination does demonstrate bone marrow edema in the anterior inferior aspect of the tibial stump. Adjacent soft tissue swelling is present. Given recent surgery the soft tissue changes are expected. The bone marrow edema could be reactive marrow edema or due to osteomyelitis. Suspect the former. Similar signal alteration noted within the left tibial stump (left lower extremity partially imaged on this study on the transcoronal sequences). thank you (5) Infection of amputation stump, right lower extremity Jaiden Teresa Dec 14, 2018 14:29
[2018-12-14 16:00] VITALS: BP 108/63
[2018-12-14 20:00] VITALS: BP 98/53
[2018-12-14] MEDS: Dyna-Hex 2% Top Sol 2oz TOPIC SCH (20:15)
[2018-12-14] MEDS: Sennosides 8.6mg tab ORAL SCH ×4 (20:19→21:55)
--- NOTE | 2018-12-14 20:44 | General Progress Note ---
Assessment/Plan Problem List: (1) Leg pain ICD Codes: M79.606 - Leg pain SNOMED: 55623805 (2) Anemia ICD Codes: D64.9 - Anemia, unspecified SNOMED: 571071537 (3) Amputation stump infection ICD Codes: T87.40 - Infection of amputation stump, unspecified extremity SNOMED: 605494211 (4) Postoperative wound closure planning ICD Codes: Z48.1 - Encounter for planned postprocedural wound closure SNOMED: 641181519 (5) Stump injury ICD Codes: T14.8 - Other injury of unspecified body region SNOMED: 590496398 (6) Infection of amputation stump, right lower extremity ICD Codes: T87.43 - Infection of amputation stump, right lower extremity SNOMED: 058755196, 634001702 Status: stable, progressing Assessment/Plan: anemia stump site wound dehiscence and infection wound vac in place needs to go to snf w wound vac per dr bruce afebrile Subjective ROS Limited/Unobtainable: Yes Allergies: Coded Allergies: No Known Allergies (Unverified , 01/04/17) Objective Last 24 Hour Vital Signs Date Time Temp Pulse Resp B/P (MAP) Pulse Ox O2 Delivery O2 Flow Rate FiO2 12/14/18 17:46 97.7 12/14/18 16:00 97.7 68 20 108/63 (78) 95 12/14/18 12:00 97.0 71 20 104/59 (74) 94 12/14/18 09:00 Room Air 12/14/18 08:00 98.3 80 20 115/63 (80) 96 12/14/18 04:00 98.1 84 20 111/60 (77) 93 12/14/18 00:00 98.1 75 20 102/62 (75) 94 12/13/18 21:00 Room Air Intake and Output 12/13/18 12/14/18 19:00 07:00 Intake Total 275 ml 1025.000 ml Output Total 700 ml Balance -425 ml 1025.000 ml Intake Oral 200 ml IV Total 75 ml 1025.000 ml Output Urine Total 700 ml # Voids 1 # Bowel Movements 1 Height (Feet): 5 Height (Inches): 0.00 Weight (Pounds): 149 Neck: supple Cardiovascular: normal rate Respiratory/Chest: lungs clear Rossy Samuel MD Dec 14, 2018 20:44
[2018-12-15] VITALS: BP 100/62
[2018-12-15 04:00] VITALS: BP 114/74
[2018-12-15 08:00] VITALS: BP 104/50
[2018-12-15] MEDS ORDERED: Levofloxacin 500mg tab ORAL SCH (09:00)
[2018-12-15 12:00] VITALS: BP 118/60
--- NOTE | 2018-12-15 13:30 | Infectious Diseases Prog Note ---
Assessment/Plan Assessment/Plan IMPRESSION: 1. Amputation stump infection, more in the right side. - cultures; MRSA, Enterococcus ( VRE & Proteus - bone biopsy, like acute osteomyelitis 2 wound dehiscence of right amputation stump. 3. Anemia. 4. Hypothyroidism. 5. History of melanoma. RECOMMENDATIONS: 1. We will continue with Levaquin & PO Zyvox X 32 days 2. Waiting for placement Subjective ROS Limited/Unobtainable: No Constitutional: Reports: no symptoms Cardiovascular: Reports: no symptoms Gastrointestinal/Abdominal: Reports: no symptoms Musculoskeletal: Reports: pain, other - controlled Allergies: Coded Allergies: No Known Allergies (Unverified , 01/04/17) Objective Vital Signs Last 24 Hour Vital Signs Date Time Temp Pulse Resp B/P (MAP) Pulse Ox O2 Delivery O2 Flow Rate FiO2 12/15/18 12:25 98.2 12/15/18 09:00 Room Air 12/15/18 08:00 98.0 62 19 104/50 (68) 98 12/15/18 04:00 98.2 81 19 114/74 (87) 98 12/15/18 00:00 97.9 72 19 100/62 (75) 97 12/14/18 21:00 Room Air 12/14/18 20:00 98.5 76 19 98/53 (68) 98 12/14/18 16:00 97.7 68 20 108/63 (78) 95 Height (Feet): 5 Height (Inches): 0.00 Weight (Pounds): 149 General Appearance: no acute distress HEENT: mucous membranes moist Respiratory/Chest: lungs clear Cardiovascular: normal rate, other - PICC line Abdomen: soft, non tender Extremities: no edema, other - bilateral BKA Skin: other - R stump wound-vac Neurologic/Psychiatric: alert, oriented x 3, responsive Current Medications Medications (Trade) Dose Ordered Sig/Trever Route PRN Reason Start Time Stop Time Status Last Admin Dose Admin Acetaminophen (Tylenol) 500 mg Q8H PRN ORAL Moderate Pain (Pain Scale 4-6) 12/05/18 23:15 01/04/19 23:14 Acetaminophen (Tylenol) 650 mg Q4H PRN ORAL Mild Pain/Temp > 100.5 12/05/18 23:15 01/04/19 23:14 Al Hydroxide/Mg Hydroxide (Mylanta II) 10 ml Q4H PRN ORAL indegestion 12/05/18 23:15 01/04/19 23:14 Bisacodyl (Dulcolax) 10 mg DAILYPRN PRN RECTAL Constipation 12/05/18 23:15 01/04/19 23:14 Chlorhexidine Gluconate (Sammie-Hex 2%) 1 applic DAILY@2000 TOPIC 12/06/18 20:00 01/05/19 19:59 12/14/18 20:15 Hydromorphone HCl (Dilaudid) 2 mg Q3H PRN IVP Severe Pain (Pain Scale 7-10) 12/13/18 01:15 12/20/18 01:14 12/15/18 11:55 Levofloxacin (Levaquin) 250 mg DAILY ORAL 12/16/18 09:00 12/23/18 08:59 Levothyroxine Sodium (Synthroid) 200 mcg DAILY@0630 ORAL 12/06/18 06:30 01/05/19 06:29 12/15/18 05:46 Linezolid (Zyvox) 600 mg EVERY 12 HOURS ORAL 12/14/18 12:00 12/19/18 11:59 12/15/18 08:47 Magnesium Hydroxide (Mom) 30 ml DAILYPRN PRN ORAL Constipation 12/05/18 23:15 01/04/19 23:14 Pantoprazole (Protonix) 40 mg DAILY ORAL 12/06/18 09:00 01/05/19 08:59 12/11/18 10:00 Sennosides (Senokot) 17.2 mg BEDTIME ORAL 12/06/18 21:00 01/05/19 20:59 12/06/18 20:34 Sodium Chloride 1,000 ml @ 75 mls/hr [id number] IV 12/10/18 09:45 01/09/19 09:44 12/15/18 11:54 Temazepam (Restoril) 15 mg HSPRN PRN ORAL Insomnia 12/14/18 00:05 12/21/18 00:04 12/14/18 00:07 Temazepam (Restoril) 30 mg HSPRN PRN ORAL Insomnia 12/13/18 22:15 12/20/18 22:14 12/14/18 22:30 Partha Obrien MD Dec 15, 2018 13:30
--- NOTE | 2018-12-15 15:28 | Surgery Progress Note ---
Surgery Progress Note Subjective Symptoms: improved Additional Comments VAC changed doing well improved Objective Last 24 Hour Vital Signs Date Time Temp Pulse Resp B/P (MAP) Pulse Ox O2 Delivery O2 Flow Rate FiO2 12/15/18 12:25 98.2 12/15/18 12:00 97.9 88 19 118/60 (79) 97 12/15/18 09:00 Room Air 12/15/18 08:00 98.0 62 19 104/50 (68) 98 12/15/18 04:00 98.2 81 19 114/74 (87) 98 12/15/18 00:00 97.9 72 19 100/62 (75) 97 12/14/18 21:00 Room Air 12/14/18 20:00 98.5 76 19 98/53 (68) 98 12/14/18 16:00 97.7 68 20 108/63 (78) 95 I&O Intake and Output 12/14/18 12/15/18 19:00 07:00 Intake Total 1750 ml 2945 ml Output Total 335 ml Balance 1750 ml 2610 ml Intake Oral 1000 ml 1000 ml IV Total 750 ml 945 ml Other 1000 ml Output Urine Total 300 ml Drainage Total 20 ml Estimated Blood Loss 15 ml # Voids 8 2 # Bowel Movements 1 Dressing: dry Wound: clean Drains: wound vac Cardiovascular: RSR Respiratory: clear Abdomen: soft, flat, non-tender, present bowel sounds Extremities: other Plan Problems: (1) Amputation stump infection Assessment & Plan: bilateral lower extremity below-knee amputations. On the right side the recent revision flap has dehisced and serous purulent drainage identified with viable sutures and palpable bone. On the left side the flap is intact on the medial aspect there is drainage coming from the wound bed in between the barbara. There is an opening on the lateral aspect approximately 2 cm x 2 cm with unknown depth given its location. We will currently continue with localized wound care as I discussed with the operating orthopedic surgeon about potential management. I discussed with the patient the current findings and the potential necessity for reoperation versus ray amputation. Versus potential salvage. Continue with IV antibiotics s/p debridement by plastic surgery 12/11 wound vac placed today by myself 12/12 d/c planning With follow with local wound care and evaluation We will discuss with orthopedic and medical team Thank you for allowing participate patient's care (2) Sacral decubitus ulcer Assessment & Plan: This is a 88-year-old male with multiple small full- thickness sacral decubitus ulcers. Patient states that he formed because he was laying flat for 15 days at an outside facility. Identified upon admission and initiated care plan. Periwound seems to have prior healing areas as well as acute inflamed areas with full-thickness breakdown approximately 1 cm x 1 cm on the left buttock/sacral cleft and similarly on the right as well. No active drainage. No foul order. Pt presented on admission with keloid scar with hyperpigmentation sacrum from previous pressure injury;confirmed by pt. Dry loose skin noted to R and L sacrum. No open areas noted. Pt denied tenderness when site palpated. Pt resistive to being repositioned on his sides and was educated of potential risks for already compromised skin to breakdown . Pt demonstrated ability to reposition self when cued.Demonstrated to pt on how to utilize side rails to off -lift buttocks and shift weight in bed. Skin lesions noted to R and L scalp. Pt verbalized he has skin cancer and lesions were recently removed. Hypergranular skin lesions also noted to Lateral L thigh. Apply Moisture Barrier Paste to Sacrum. Cover with Optifoam drsg. Change every 3 days and prn. Encourage and assist with repositioning at least every 2hours or as tolerated.Elevate BKA stumps on pillow. Turn every 2 hours. Patient willing and does assist with ensuring that he turns every so often Offload stump pressures with pillow Thank you for allowing me to participate in patient's care will follow with recommendations (3) Postoperative wound closure planning (4) Stump injury Assessment & Plan: s/p debridement by plastic surgery 12/11 wound vac placed today by myself 12/12 d/c planning plan for VAC upon discharge to SNF if decides he would like amputation will be available Findings: X-ray better demonstrates signs of recent surgery with surgical clips barbara at the site of a below the knee amputation. The cortical margin at the tibial stump appears intact both on x-ray and MRI. MRI examination does demonstrate bone marrow edema in the anterior inferior aspect of the tibial stump. Adjacent soft tissue swelling is present. Given recent surgery the soft tissue changes are expected. The bone marrow edema could be reactive marrow edema or due to osteomyelitis. Suspect the former. Similar signal alteration noted within the left tibial stump (left lower extremity partially imaged on this study on the transcoronal sequences). thank you (5) Infection of amputation stump, right lower extremity Jaiden Teresa Dec 15, 2018 15:28
--- NOTE | 2018-12-15 15:29 | Hematology/Onc Progress Note ---
Assessment/Plan Assessment/Plan IMPRESSION/RECS: # Anemia due to underlying iron deficiency, r/o gi bleed - also with multifactorial component --> anemia panel reviewed and noted with Iron def --> has been started on iv iron x 5 day course --> hgb transfuse if hgb lower than 7 --> hgb trend 10.6-->10.1-->9.9-->9.3 --> HOLDING OFF LABS q3 days --> occult pending ++, dw pcp, outpatient w/u # History of melanoma. --> currently in remission # Amputation stump infection, more in the right side. Appears likely osteo --> on cefepime/vanc--> leva/vanc x 34 d --> as per id recs --> surg, pod recs # Wound dehiscence of right amputation stump. --> eval with surg, pod # Hypothyroidism. --> started on synthroid # Dvt ppx scds Time of note does not necessarily correspond to when patient seen Greatly appreciate consultation. Subjective Allergies: Coded Allergies: No Known Allergies (Unverified , 01/04/17) Subjective 12/09: no events, remains on abx, has been started on iv iron, hgb 9.9 12/11: s/p right leg wound debridement, cultures pending 12/12: vs stable, on abx, cultures noted, bleeding noted on dressing 12/13: no bleeding or chills, labs reviewed, no major night sweats 12/14: no events, no bleeding, wants to take off wound vac and take a shower, no f 12/15: no f/c, vs stable, no bleeding, no acute events, meds reviewed Objective Objective Current Medications Medications (Trade) Dose Ordered Sig/Trever Route PRN Reason Start Time Stop Time Status Last Admin Dose Admin Acetaminophen (Tylenol) 500 mg Q8H PRN ORAL Moderate Pain (Pain Scale 4-6) 12/05/18 23:15 01/04/19 23:14 Acetaminophen (Tylenol) 650 mg Q4H PRN ORAL Mild Pain/Temp > 100.5 12/05/18 23:15 01/04/19 23:14 Al Hydroxide/Mg Hydroxide (Mylanta II) 10 ml Q4H PRN ORAL indegestion 12/05/18 23:15 01/04/19 23:14 Bisacodyl (Dulcolax) 10 mg DAILYPRN PRN RECTAL Constipation 12/05/18 23:15 01/04/19 23:14 Chlorhexidine Gluconate (Sammie-Hex 2%) 1 applic DAILY@2000 TOPIC 12/06/18 20:00 01/05/19 19:59 12/14/18 20:15 Hydromorphone HCl (Dilaudid) 2 mg Q3H PRN IVP Severe Pain (Pain Scale 7-10) 12/13/18 01:15 12/20/18 01:14 12/15/18 14:59 Levofloxacin (Levaquin) 250 mg DAILY ORAL 12/16/18 09:00 12/23/18 08:59 Levothyroxine Sodium (Synthroid) 200 mcg DAILY@0630 ORAL 12/06/18 06:30 01/05/19 06:29 12/15/18 05:46 Linezolid (Zyvox) 600 mg EVERY 12 HOURS ORAL 12/14/18 12:00 12/19/18 11:59 12/15/18 08:47 Magnesium Hydroxide (Mom) 30 ml DAILYPRN PRN ORAL Constipation 12/05/18 23:15 01/04/19 23:14 Pantoprazole (Protonix) 40 mg DAILY ORAL 12/06/18 09:00 01/05/19 08:59 12/11/18 10:00 Sennosides (Senokot) 17.2 mg BEDTIME ORAL 12/06/18 21:00 01/05/19 20:59 12/06/18 20:34 Sodium Chloride 1,000 ml @ 75 mls/hr [id number] IV 12/10/18 09:45 01/09/19 09:44 12/15/18 11:54 Temazepam (Restoril) 15 mg HSPRN PRN ORAL Insomnia 12/14/18 00:05 12/21/18 00:04 12/14/18 00:07 Temazepam (Restoril) 30 mg HSPRN PRN ORAL Insomnia 12/13/18 22:15 12/20/18 22:14 12/14/18 22:30 Last 24 Hour Vital Signs Date Time Temp Pulse Resp B/P (MAP) Pulse Ox O2 Delivery O2 Flow Rate FiO2 12/15/18 12:25 98.2 12/15/18 12:00 97.9 88 19 118/60 (79) 97 12/15/18 09:00 Room Air 12/15/18 08:00 98.0 62 19 104/50 (68) 98 12/15/18 04:00 98.2 81 19 114/74 (87) 98 12/15/18 00:00 97.9 72 19 100/62 (75) 97 12/14/18 21:00 Room Air 12/14/18 20:00 98.5 76 19 98/53 (68) 98 12/14/18 16:00 97.7 68 20 108/63 (78) 95 12/14/18 12:00 97.0 71 20 104/59 (74) 94 12/14/18 09:00 Room Air 12/14/18 08:00 98.3 80 20 115/63 (80) 96 12/14/18 04:00 98.1 84 20 111/60 (77) 93 12/14/18 00:00 98.1 75 20 102/62 (75) 94 12/13/18 21:00 Room Air 12/13/18 20:00 97.9 72 20 102/65 (77) 98 12/13/18 16:00 98.1 65 20 104/64 (77) 96 Intake and Output 12/14/18 12/15/18 19:00 07:00 Intake Total 1750 ml 2945 ml Output Total 335 ml Balance 1750 ml 2610 ml Intake Oral 1000 ml 1000 ml IV Total 750 ml 945 ml Other 1000 ml Output Urine Total 300 ml Drainage Total 20 ml Estimated Blood Loss 15 ml # Voids 8 2 # Bowel Movements 1 Labs Test 12/13/18 12:25 Stool Occult Blood Positive (NEGATIVE) Height (Feet): 5 Height (Inches): 0.00 Weight (Pounds): 149 Objective Gen: Nad Pulm: Ctab CV: rrr, no mgr Abd: soft, nt, nd Ext: b/l nka noted, dressings+ Oseas Tong MD Dec 15, 2018 15:29
[2018-12-15 16:00] VITALS: BP 125/74
[2018-12-15 20:00] VITALS: BP 95/47
[2018-12-15] MEDS: Dyna-Hex 2% Top Sol 2oz TOPIC SCH (20:22)
[2018-12-15] MEDS: Sennosides 8.6mg tab ORAL SCH (20:23)
--- NOTE | 2018-12-15 21:13 | General Progress Note ---
Assessment/Plan Problem List: (1) Leg pain ICD Codes: M79.606 - Leg pain SNOMED: 23125333 (2) Anemia ICD Codes: D64.9 - Anemia, unspecified SNOMED: 618885732 (3) Amputation stump infection ICD Codes: T87.40 - Infection of amputation stump, unspecified extremity SNOMED: 515613021 (4) Postoperative wound closure planning ICD Codes: Z48.1 - Encounter for planned postprocedural wound closure SNOMED: 035902122 (5) Stump injury ICD Codes: T14.8 - Other injury of unspecified body region SNOMED: 833145403 (6) Infection of amputation stump, right lower extremity ICD Codes: T87.43 - Infection of amputation stump, right lower extremity SNOMED: 771786158, 187289017 Status: stable, progressing Assessment/Plan: anemia stump site wound dehiscence and infection wound vac in place needs to go to snf w wound vac per dr bruce chronic pain sepsis need placement reviewed chart and labs Subjective ROS Limited/Unobtainable: Yes Allergies: Coded Allergies: No Known Allergies (Unverified , 01/04/17) Objective Last 24 Hour Vital Signs Date Time Temp Pulse Resp B/P (MAP) Pulse Ox O2 Delivery O2 Flow Rate FiO2 12/15/18 18:39 98.0 12/15/18 16:00 98.0 82 19 125/74 (91) 97 12/15/18 12:00 97.9 88 19 118/60 (79) 97 12/15/18 09:00 Room Air 12/15/18 08:00 98.0 62 19 104/50 (68) 98 12/15/18 04:00 98.2 81 19 114/74 (87) 98 12/15/18 00:00 97.9 72 19 100/62 (75) 97 Intake and Output 12/14/18 12/15/18 19:00 07:00 Intake Total 1750 ml 3020 ml Output Total 335 ml Balance 1750 ml 2685 ml Intake Oral 1000 ml 1000 ml IV Total 750 ml 1020 ml Other 1000 ml Output Urine Total 300 ml Drainage Total 20 ml Estimated Blood Loss 15 ml # Voids 8 2 # Bowel Movements 1 Height (Feet): 5 Height (Inches): 0.00 Weight (Pounds): 149 Cardiovascular: regular rhythm Respiratory/Chest: lungs clear Abdomen: soft Hadadz,Ali MD Dec 15, 2018 21:13
[2018-12-16] VITALS: BP 110/51
[2018-12-16 04:00] VITALS: BP 115/90
[2018-12-16 08:00] VITALS: BP 101/60
[2018-12-16 12:00] VITALS: BP 126/56
--- NOTE | 2018-12-16 14:23 | Surgery Progress Note ---
Surgery Progress Note Subjective Additional Comments Patient seen and examined bedside. Has a friend at bedside today. Discussed care plan. Patient doing much better and significantly happy. Labs noted. Overall improved. VAC in place and functional. Objective Last 24 Hour Vital Signs Date Time Temp Pulse Resp B/P (MAP) Pulse Ox O2 Delivery O2 Flow Rate FiO2 12/16/18 12:00 97.9 57 17 126/56 (79) 100 12/16/18 10:49 98.2 12/16/18 09:00 Room Air 12/16/18 08:00 98.2 78 19 101/60 (74) 95 12/16/18 04:00 98.4 70 19 115/90 (98) 98 12/16/18 00:00 99.0 79 19 110/51 (70) 95 12/15/18 21:00 Room Air 12/15/18 20:00 99.0 81 19 95/47 (63) 96 12/15/18 16:00 98.0 82 19 125/74 (91) 97 I&O Intake and Output 12/15/18 12/16/18 18:59 06:59 Intake Total 1305 ml 2030 ml Output Total 600 ml 355 ml Balance 705 ml 1675 ml Intake Oral 480 ml 480 ml IV Total 825 ml 550 ml Other 1000 ml Output Urine Total 600 ml 300 ml Drainage Total 40 ml Estimated Blood Loss 15 ml # Voids 4 2 # Bowel Movements 1 Dressing: dry Wound: clean Drains: wound vac Cardiovascular: RSR Respiratory: clear Abdomen: soft, non-tender, present bowel sounds Extremities: other Plan Problems: (1) Amputation stump infection Assessment & Plan: bilateral lower extremity below-knee amputations. On the right side the recent revision flap has dehisced and serous purulent drainage identified with viable sutures and palpable bone. On the left side the flap is intact on the medial aspect there is drainage coming from the wound bed in between the barbara. There is an opening on the lateral aspect approximately 2 cm x 2 cm with unknown depth given its location. We will currently continue with localized wound care as I discussed with the operating orthopedic surgeon about potential management. I discussed with the patient the current findings and the potential necessity for reoperation versus ray amputation. Versus potential salvage. Continue with IV antibiotics s/p debridement by plastic surgery 12/11 wound vac placed today by myself 12/12 d/c planning With follow with local wound care and evaluation We will discuss with orthopedic and medical team Thank you for allowing participate patient's care (2) Sacral decubitus ulcer Assessment & Plan: This is a 88-year-old male with multiple small full- thickness sacral decubitus ulcers. Patient states that he formed because he was laying flat for 15 days at an outside facility. Identified upon admission and initiated care plan. Periwound seems to have prior healing areas as well as acute inflamed areas with full-thickness breakdown approximately 1 cm x 1 cm on the left buttock/sacral cleft and similarly on the right as well. No active drainage. No foul order. Pt presented on admission with keloid scar with hyperpigmentation sacrum from previous pressure injury;confirmed by pt. Dry loose skin noted to R and L sacrum. No open areas noted. Pt denied tenderness when site palpated. Pt resistive to being repositioned on his sides and was educated of potential risks for already compromised skin to breakdown . Pt demonstrated ability to reposition self when cued.Demonstrated to pt on how to utilize side rails to off -lift buttocks and shift weight in bed. Skin lesions noted to R and L scalp. Pt verbalized he has skin cancer and lesions were recently removed. Hypergranular skin lesions also noted to Lateral L thigh. Apply Moisture Barrier Paste to Sacrum. Cover with Optifoam drsg. Change every 3 days and prn. Encourage and assist with repositioning at least every 2hours or as tolerated.Elevate BKA stumps on pillow. Turn every 2 hours. Patient willing and does assist with ensuring that he turns every so often Offload stump pressures with pillow Thank you for allowing me to participate in patient's care will follow with recommendations (3) Postoperative wound closure planning (4) Stump injury Assessment & Plan: s/p debridement by plastic surgery 12/11 wound vac placed today by myself 12/12 d/c planning plan for VAC upon discharge to SNF if decides he would like amputation will be available Findings: X-ray better demonstrates signs of recent surgery with surgical clips barbara at the site of a below the knee amputation. The cortical margin at the tibial stump appears intact both on x-ray and MRI. MRI examination does demonstrate bone marrow edema in the anterior inferior aspect of the tibial stump. Adjacent soft tissue swelling is present. Given recent surgery the soft tissue changes are expected. The bone marrow edema could be reactive marrow edema or due to osteomyelitis. Suspect the former. Similar signal alteration noted within the left tibial stump (left lower extremity partially imaged on this study on the transcoronal sequences). thank you (5) Infection of amputation stump, right lower extremity Additional Comments DC planning to SNF with wound VAC. Patient will not be able to manage ambulatory, getting around, VAC at home by himself. He has bilateral amputation and should not be bearing weight on them. Needs assistance Jaiden Teresa Dec 16, 2018 14:23
[2018-12-16 16:00] VITALS: BP 114/53
[2018-12-16] MEDS: Dyna-Hex 2% Top Sol 2oz TOPIC SCH (19:36)
[2018-12-16 20:00] VITALS: BP 93/50
--- NOTE | 2018-12-16 21:14 | General Progress Note ---
Assessment/Plan Problem List: (1) Leg pain ICD Codes: M79.606 - Leg pain SNOMED: 40257950 (2) Anemia ICD Codes: D64.9 - Anemia, unspecified SNOMED: 733429700 (3) Amputation stump infection ICD Codes: T87.40 - Infection of amputation stump, unspecified extremity SNOMED: 399426682 (4) Postoperative wound closure planning ICD Codes: Z48.1 - Encounter for planned postprocedural wound closure SNOMED: 009742881 (5) Stump injury ICD Codes: T14.8 - Other injury of unspecified body region SNOMED: 195037311 (6) Infection of amputation stump, right lower extremity ICD Codes: T87.43 - Infection of amputation stump, right lower extremity SNOMED: 132733769, 612505827 Status: stable, progressing Assessment/Plan: anemia stump site wound dehiscence and infection improving no fever check h/h and wbc needs to go to snf w wound vac per dr bruce reviewed chart and labs Subjective ROS Limited/Unobtainable: Yes Allergies: Coded Allergies: No Known Allergies (Unverified , 01/04/17) Objective Last 24 Hour Vital Signs Date Time Temp Pulse Resp B/P (MAP) Pulse Ox O2 Delivery O2 Flow Rate FiO2 12/16/18 20:00 99.1 85 19 93/50 (64) 96 12/16/18 16:57 97.9 12/16/18 16:00 98.7 81 17 114/53 (73) 98 12/16/18 12:00 97.9 57 17 126/56 (79) 100 12/16/18 09:00 Room Air 12/16/18 08:00 98.2 78 19 101/60 (74) 95 12/16/18 04:00 98.4 70 19 115/90 (98) 98 12/16/18 00:00 99.0 79 19 110/51 (70) 95 Intake and Output 12/15/18 12/16/18 19:00 07:00 Intake Total 1230 ml 2030 ml Output Total 600 ml 355 ml Balance 630 ml 1675 ml Intake Oral 480 ml 480 ml IV Total 750 ml 550 ml Other 1000 ml Output Urine Total 600 ml 300 ml Drainage Total 40 ml Estimated Blood Loss 15 ml # Voids 4 2 # Bowel Movements 1 Height (Feet): 5 Height (Inches): 0.00 Weight (Pounds): 149 Cardiovascular: regular rhythm Respiratory/Chest: lungs clear oRssy Samuel MD Dec 16, 2018 21:14
[2018-12-16] MEDS: Sennosides 8.6mg tab ORAL SCH (21:34)
[2018-12-17] VITALS: BP 105/62
[2018-12-17 04:00] VITALS: BP 115/70
[2018-12-17 08:00] VITALS: BP 99/43
--- NOTE | 2018-12-17 10:35 | Hematology/Onc Progress Note ---
Assessment/Plan Assessment/Plan IMPRESSION/RECS: # Anemia due to underlying iron deficiency, r/o gi bleed - also with multifactorial component --> anemia panel reviewed and noted with Iron def --> has been started on iv iron x 5 day course --> hgb transfuse if hgb lower than 7 --> hgb trend 10.6-->10.1-->9.9-->9.3 --> HOLDING OFF LABS q3 days --> occult pending ++, dw pcp, outpatient w/u # History of melanoma. --> currently in remission # Amputation stump infection, more in the right side. Appears likely osteo --> on cefepime/vanc--> leva/vanc x 34 d --> as per id recs --> surg, pod recs # Wound dehiscence of right amputation stump. --> eval with surg, pod # Hypothyroidism. --> started on synthroid # Dvt ppx scds Time of note does not necessarily correspond to when patient seen Greatly appreciate consultation. Subjective Constitutional: Denies: no symptoms, chills, fever, malaise, weakness, other HEENT: Denies: no symptoms, eye pain, blurred vision, tearing, double vision, ear pain, ear discharge, nose pain, nose congestion, throat pain, throat swelling, mouth pain, mouth swelling, other Cardiovascular: Denies: no symptoms, chest pain, edema, irregular heart rate, lightheadedness, palpitations, syncope, other Respiratory: Denies: no symptoms, cough, shortness of breath, SOB with excertion, SOB at rest, sputum, wheezing, other Gastrointestinal/Abdominal: Denies: no symptoms, abdomen distended, abdominal pain, black stools, tarry stools, blood in stool, constipated, diarrhea, difficulty swallowing, nausea, poor appetite, poor fluid intake, rectal bleeding , vomiting, other Neurologic/Psychiatric: Denies: no symptoms, anxiety, depressed, emotional problems, headache, numbness, paresthesia, pre-existing deficit, seizure, tingling, tremors, weakness, other Endocrine: Denies: no symptoms, excessive sweating, flushing, intolerance to cold, intolerance to heat, increased hunger, increased thirst, increased urine, unexplained weight gain, unexplained weight loss, other Hematologic/Lymphatic: Denies: no symptoms, anemia, easy bleeding, easy bruising, adenopathy, other Allergies: Coded Allergies: No Known Allergies (Unverified , 01/04/17) Subjective 12/09: no events, remains on abx, has been started on iv iron, hgb 9.9 12/11: s/p right leg wound debridement, cultures pending 12/12: vs stable, on abx, cultures noted, bleeding noted on dressing 12/13: no bleeding or chills, labs reviewed, no major night sweats 12/14: no events, no bleeding, wants to take off wound vac and take a shower, no f 12/15: no f/c, vs stable, no bleeding, no acute events, meds reviewed 12/17: leg pain, 06/11, refusing labs currently, no f/c, no bleeding Objective Objective Current Medications Medications (Trade) Dose Ordered Sig/Trever Route PRN Reason Start Time Stop Time Status Last Admin Dose Admin Acetaminophen (Tylenol) 500 mg Q8H PRN ORAL Moderate Pain (Pain Scale 4-6) 12/05/18 23:15 01/04/19 23:14 Acetaminophen (Tylenol) 650 mg Q4H PRN ORAL Mild Pain/Temp > 100.5 12/05/18 23:15 01/04/19 23:14 Al Hydroxide/Mg Hydroxide (Mylanta II) 10 ml Q4H PRN ORAL indegestion 12/05/18 23:15 01/04/19 23:14 Bisacodyl (Dulcolax) 10 mg DAILYPRN PRN RECTAL Constipation 12/05/18 23:15 01/04/19 23:14 Chlorhexidine Gluconate (Sammie-Hex 2%) 1 applic DAILY@1999 TOPIC 12/06/18 20:00 01/05/19 19:59 12/16/18 19:36 Hydromorphone HCl (Dilaudid) 2 mg Q3H PRN IVP Severe Pain (Pain Scale 7-10) 12/13/18 01:15 12/20/18 01:14 12/17/18 09:02 Levofloxacin (Levaquin) 250 mg DAILY ORAL 12/16/18 09:00 12/23/18 08:59 12/17/18 09:05 Levothyroxine Sodium (Synthroid) 200 mcg DAILY@0630 ORAL 12/06/18 06:30 01/05/19 06:29 12/17/18 05:56 Linezolid (Zyvox) 600 mg EVERY 12 HOURS ORAL 12/14/18 12:00 12/19/18 11:59 12/17/18 09:05 Magnesium Hydroxide (Mom) 30 ml DAILYPRN PRN ORAL Constipation 12/05/18 23:15 01/04/19 23:14 Pantoprazole (Protonix) 40 mg DAILY ORAL 12/06/18 09:00 01/05/19 08:59 12/11/18 10:00 Sennosides (Senokot) 17.2 mg BEDTIME ORAL 12/06/18 21:00 01/05/19 20:59 12/06/18 20:34 Sodium Chloride 1,000 ml @ 75 mls/hr [id number] IV 12/10/18 09:45 01/09/19 09:44 12/16/18 22:39 Temazepam (Restoril) 15 mg HSPRN PRN ORAL Insomnia 12/14/18 00:05 12/21/18 00:04 12/17/18 03:02 Temazepam (Restoril) 30 mg HSPRN PRN ORAL Insomnia 12/13/18 22:15 12/20/18 22:14 12/16/18 21:33 Last 24 Hour Vital Signs Date Time Temp Pulse Resp B/P (MAP) Pulse Ox O2 Delivery O2 Flow Rate FiO2 12/17/18 09:00 Room Air 12/17/18 08:00 97.8 72 18 99/43 (61) 98 12/17/18 04:00 98.2 79 19 115/70 (85) 98 12/17/18 00:00 99.0 82 19 105/62 (76) 98 12/16/18 21:00 Room Air 12/16/18 20:00 99.1 85 19 93/50 (64) 96 12/16/18 16:57 97.9 12/16/18 16:00 98.7 81 17 114/53 (73) 98 12/16/18 12:00 97.9 57 17 126/56 (79) 100 12/16/18 09:00 Room Air 12/16/18 08:00 98.2 78 19 101/60 (74) 95 12/16/18 04:00 98.4 70 19 115/90 (98) 98 12/16/18 00:00 99.0 79 19 110/51 (70) 95 12/15/18 21:00 Room Air 12/15/18 20:00 99.0 81 19 95/47 (63) 96 12/15/18 16:00 98.0 82 19 125/74 (91) 97 12/15/18 12:00 97.9 88 19 118/60 (79) 97 Intake and Output 12/16/18 12/17/18 19:00 07:00 Intake Total 1125 ml 2450 ml Output Total 985 ml Balance 1125 ml 1465 ml Intake Oral 600 ml 600 ml IV Total 525 ml 850 ml Other 1000 ml Output Urine Total 950 ml Drainage Total 20 ml Estimated Blood Loss 15 ml # Voids 6 3 # Bowel Movements 1 Height (Feet): 5 Height (Inches): 0.00 Weight (Pounds): 149 Objective Gen: Nad Pulm: Ctab CV: rrr, no mgr Abd: soft, nt, nd Ext: b/l nka noted, dressings+ Oseas Tong MD Dec 17, 2018 10:35
[2018-12-17 11:57] VITALS: BP 102/72
--- NOTE | 2018-12-17 13:30 | Infectious Diseases Prog Note ---
Assessment/Plan Assessment/Plan IMPRESSION: 1. Amputation stump infection, more in the right side. - cultures; MRSA, Enterococcus ( VRE & Proteus - bone biopsy, like acute osteomyelitis 2 wound dehiscence of right amputation stump. 3. Anemia. 4. Hypothyroidism. 5. History of melanoma. 6. thrombocytopenia due to Zyvox RECOMMENDATIONS: 1. We will continue with Levaquin & PO Zyvox X 30 days 2. Waiting for placement 3. F/U CBC Subjective ROS Limited/Unobtainable: No Respiratory: Reports: no symptoms Cardiovascular: Reports: no symptoms Gastrointestinal/Abdominal: Reports: no symptoms Genitourinary: Reports: no symptoms Musculoskeletal: Reports: pain Allergies: Coded Allergies: No Known Allergies (Unverified , 01/04/17) Objective Vital Signs Last 24 Hour Vital Signs Date Time Temp Pulse Resp B/P (MAP) Pulse Ox O2 Delivery O2 Flow Rate FiO2 12/17/18 12:32 98.1 12/17/18 11:57 98.1 72 18 102/72 (82) 98 12/17/18 09:00 Room Air 12/17/18 08:00 97.8 72 18 99/43 (61) 98 12/17/18 04:00 98.2 79 19 115/70 (85) 98 12/17/18 00:00 99.0 82 19 105/62 (76) 98 12/16/18 21:00 Room Air 12/16/18 20:00 99.1 85 19 93/50 (64) 96 12/16/18 16:00 98.7 81 17 114/53 (73) 98 Height (Feet): 5 Height (Inches): 0.00 Weight (Pounds): 149 General Appearance: no acute distress HEENT: mucous membranes moist Respiratory/Chest: lungs clear Cardiovascular: normal rate, other - left arm PICC line Abdomen: soft, non tender Extremities: no edema Neurologic/Psychiatric: alert, oriented x 3, responsive Current Medications Medications (Trade) Dose Ordered Sig/Trever Route PRN Reason Start Time Stop Time Status Last Admin Dose Admin Acetaminophen (Tylenol) 500 mg Q8H PRN ORAL Moderate Pain (Pain Scale 4-6) 12/05/18 23:15 01/04/19 23:14 Acetaminophen (Tylenol) 650 mg Q4H PRN ORAL Mild Pain/Temp > 100.5 12/05/18 23:15 10/3/19 23:14 Al Hydroxide/Mg Hydroxide (Mylanta II) 10 ml Q4H PRN ORAL indegestion 12/05/18 23:15 01/04/19 23:14 Bisacodyl (Dulcolax) 10 mg DAILYPRN PRN RECTAL Constipation 12/05/18 23:15 01/04/19 23:14 Chlorhexidine Gluconate (Sammie-Hex 2%) 1 applic DAILY@2000 TOPIC 12/06/18 20:00 01/05/19 19:59 12/16/18 19:36 Hydromorphone HCl (Dilaudid) 2 mg Q3H PRN IVP Severe Pain (Pain Scale 7-10) 12/13/18 01:15 12/20/18 01:14 12/17/18 12:02 Levofloxacin (Levaquin) 250 mg DAILY ORAL 12/16/18 09:00 12/23/18 08:59 12/17/18 09:05 Levothyroxine Sodium (Synthroid) 200 mcg DAILY@0630 ORAL 12/06/18 06:30 01/05/19 06:29 12/17/18 05:56 Linezolid (Zyvox) 600 mg EVERY 12 HOURS ORAL 12/14/18 12:00 12/19/18 11:59 12/17/18 09:05 Magnesium Hydroxide (Mom) 30 ml DAILYPRN PRN ORAL Constipation 12/05/18 23:15 01/04/19 23:14 Pantoprazole (Protonix) 40 mg DAILY ORAL 12/06/18 09:00 01/05/19 08:59 12/11/18 10:00 Sennosides (Senokot) 17.2 mg BEDTIME ORAL 12/06/18 21:00 01/05/19 20:59 12/06/18 20:34 Sodium Chloride 1,000 ml @ 75 mls/hr [id number] IV 12/10/18 09:45 01/09/19 09:44 12/17/18 12:09 Temazepam (Restoril) 15 mg HSPRN PRN ORAL Insomnia 12/14/18 00:05 12/21/18 00:04 12/17/18 03:02 Temazepam (Restoril) 30 mg HSPRN PRN ORAL Insomnia 12/13/18 22:15 12/20/18 22:14 12/16/18 21:33 Partha Obrien MD Dec 17, 2018 13:30
--- NOTE | 2018-12-17 14:02 | Surgery Progress Note ---
Surgery Progress Note Subjective Symptoms: improved, tolerating diet, voiding well, passing flatus, pain decreased Objective Last 24 Hour Vital Signs Date Time Temp Pulse Resp B/P (MAP) Pulse Ox O2 Delivery O2 Flow Rate FiO2 12/17/18 12:32 98.1 12/17/18 11:57 98.1 72 18 102/72 (82) 98 12/17/18 09:00 Room Air 12/17/18 08:00 97.8 72 18 99/43 (61) 98 12/17/18 04:00 98.2 79 19 115/70 (85) 98 12/17/18 00:00 99.0 82 19 105/62 (76) 98 12/16/18 21:00 Room Air 12/16/18 20:00 99.1 85 19 93/50 (64) 96 12/16/18 16:00 98.7 81 17 114/53 (73) 98 I&O Intake and Output 12/16/18 12/17/18 18:59 06:59 Intake Total 1050 ml 2525 ml Output Total 985 ml Balance 1050 ml 1540 ml Intake Oral 600 ml 600 ml IV Total 450 ml 925 ml Other 1000 ml Output Urine Total 950 ml Drainage Total 20 ml Estimated Blood Loss 15 ml # Voids 6 3 # Bowel Movements 1 Dressing: dry Wound: clean Drains: wound vac Cardiovascular: RSR Respiratory: clear Abdomen: soft, non-tender, present bowel sounds Extremities: no edema, no tenderness, no cyanosis Plan Problems: (1) Amputation stump infection Assessment & Plan: bilateral lower extremity below-knee amputations. On the right side the recent revision flap has dehisced and serous purulent drainage identified with viable sutures and palpable bone. On the left side the flap is intact on the medial aspect there is drainage coming from the wound bed in between the barbara. There is an opening on the lateral aspect approximately 2 cm x 2 cm with unknown depth given its location. We will currently continue with localized wound care as I discussed with the operating orthopedic surgeon about potential management. I discussed with the patient the current findings and the potential necessity for reoperation versus ray amputation. Versus potential salvage. Continue with IV antibiotics s/p debridement by plastic surgery 12/11 wound vac placed today by myself 12/12 d/c planning With follow with local wound care and evaluation We will discuss with orthopedic and medical team Thank you for allowing participate patient's care (2) Sacral decubitus ulcer Assessment & Plan: This is a 88-year-old male with multiple small full- thickness sacral decubitus ulcers. Patient states that he formed because he was laying flat for 15 days at an outside facility. Identified upon admission and initiated care plan. Periwound seems to have prior healing areas as well as acute inflamed areas with full-thickness breakdown approximately 1 cm x 1 cm on the left buttock/sacral cleft and similarly on the right as well. No active drainage. No foul order. Pt presented on admission with keloid scar with hyperpigmentation sacrum from previous pressure injury;confirmed by pt. Dry loose skin noted to R and L sacrum. No open areas noted. Pt denied tenderness when site palpated. Pt resistive to being repositioned on his sides and was educated of potential risks for already compromised skin to breakdown . Pt demonstrated ability to reposition self when cued.Demonstrated to pt on how to utilize side rails to off -lift buttocks and shift weight in bed. Skin lesions noted to R and L scalp. Pt verbalized he has skin cancer and lesions were recently removed. Hypergranular skin lesions also noted to Lateral L thigh. Apply Moisture Barrier Paste to Sacrum. Cover with Optifoam drsg. Change every 3 days and prn. Encourage and assist with repositioning at least every 2hours or as tolerated.Elevate BKA stumps on pillow. Turn every 2 hours. Patient willing and does assist with ensuring that he turns every so often Offload stump pressures with pillow Thank you for allowing me to participate in patient's care will follow with recommendations (3) Postoperative wound closure planning (4) Stump injury Assessment & Plan: s/p debridement by plastic surgery 12/11 wound vac placed today by myself 12/12 d/c planning plan for VAC upon discharge to SNF if decides he would like amputation will be available Findings: X-ray better demonstrates signs of recent surgery with surgical clips barbara at the site of a below the knee amputation. The cortical margin at the tibial stump appears intact both on x-ray and MRI. MRI examination does demonstrate bone marrow edema in the anterior inferior aspect of the tibial stump. Adjacent soft tissue swelling is present. Given recent surgery the soft tissue changes are expected. The bone marrow edema could be reactive marrow edema or due to osteomyelitis. Suspect the former. Similar signal alteration noted within the left tibial stump (left lower extremity partially imaged on this study on the transcoronal sequences). thank you (5) Infection of amputation stump, right lower extremity Jaiden Teresa Dec 17, 2018 14:02
[2018-12-17 16:00] VITALS: BP 92/74
[2018-12-17 20:00] VITALS: BP 109/67
--- NOTE | 2018-12-17 20:51 | General Progress Note ---
Assessment/Plan Problem List: (1) Leg pain ICD Codes: M79.606 - Leg pain SNOMED: 36164560 (2) Anemia ICD Codes: D64.9 - Anemia, unspecified SNOMED: 709439321 (3) Amputation stump infection ICD Codes: T87.40 - Infection of amputation stump, unspecified extremity SNOMED: 678742099 (4) Postoperative wound closure planning ICD Codes: Z48.1 - Encounter for planned postprocedural wound closure SNOMED: 466480106 (5) Stump injury ICD Codes: T14.8 - Other injury of unspecified body region SNOMED: 620181652 (6) Infection of amputation stump, right lower extremity ICD Codes: T87.43 - Infection of amputation stump, right lower extremity SNOMED: 699646654, 552253593 Status: stable, progressing Assessment/Plan: needs to go to snf w wound vac per dr bruce reviewed chart and lab s/p wound dehiscence iv abx per id afebrile reviewed chart and labs and mes Subjective ROS Limited/Unobtainable: Yes Allergies: Coded Allergies: No Known Allergies (Unverified , 01/04/17) Objective Last 24 Hour Vital Signs Date Time Temp Pulse Resp B/P (MAP) Pulse Ox O2 Delivery O2 Flow Rate FiO2 12/17/18 18:39 97.9 12/17/18 16:00 97.9 78 18 92/74 (80) 98 12/17/18 11:57 98.1 72 18 102/72 (82) 98 12/17/18 09:00 Room Air 12/17/18 08:00 97.8 72 18 99/43 (61) 98 12/17/18 04:00 98.2 79 19 115/70 (85) 98 12/17/18 00:00 99.0 82 19 105/62 (76) 98 12/16/18 21:00 Room Air Intake and Output 12/16/18 12/17/18 19:00 07:00 Intake Total 1125 ml 2450 ml Output Total 985 ml Balance 1125 ml 1465 ml Intake Oral 600 ml 600 ml IV Total 525 ml 850 ml Other 1000 ml Output Urine Total 950 ml Drainage Total 20 ml Estimated Blood Loss 15 ml # Voids 6 3 # Bowel Movements 1 Height (Feet): 5 Height (Inches): 0.00 Weight (Pounds): 149 Neck: supple Cardiovascular: regular rhythm Respiratory/Chest: lungs clear Rossy Samuel MD Dec 17, 2018 20:51
[2018-12-17] MEDS: Sennosides 8.6mg tab ORAL SCH (21:00)
[2018-12-17] MEDS: Dyna-Hex 2% Top Sol 2oz TOPIC SCH (21:15)
[2018-12-18] VITALS: BP 114/70
[2018-12-18 04:00] VITALS: BP 92/56
[2018-12-18 08:00] VITALS: BP 122/62
--- NOTE | 2018-12-18 10:26 | Surgery Progress Note ---
Surgery Progress Note Subjective Additional Comments no acute events comfortable stable vac changed and wound improved! Objective Last 24 Hour Vital Signs Date Time Temp Pulse Resp B/P (MAP) Pulse Ox O2 Delivery O2 Flow Rate FiO2 12/18/18 09:07 98.9 12/18/18 08:48 Room Air 12/18/18 08:00 99.0 59 18 122/62 (82) 99 12/18/18 04:00 98.9 54 18 92/56 (68) 96 12/18/18 00:00 98.4 74 18 114/70 (85) 98 12/17/18 21:00 Room Air 12/17/18 20:00 98.4 75 18 109/67 (81) 96 12/17/18 16:00 97.9 78 18 92/74 (80) 98 12/17/18 11:57 98.1 72 18 102/72 (82) 98 I&O Intake and Output 12/17/18 12/18/18 19:00 07:00 Intake Total 700 ml 2400 ml Output Total 500 ml 935 ml Balance 200 ml 1465 ml Intake Oral 700 ml 700 ml IV Total 700 ml Other 1000 ml Output Urine Total 500 ml 900 ml Drainage Total 20 ml Estimated Blood Loss 15 ml # Voids 3 # Bowel Movements 1 1 Dressing: dry Wound: clean Drains: wound vac Cardiovascular: RSR Respiratory: clear Abdomen: soft, non-tender, present bowel sounds Extremities: other Plan Problems: (1) Amputation stump infection Assessment & Plan: bilateral lower extremity below-knee amputations. On the right side the recent revision flap has dehisced and serous purulent drainage identified with viable sutures and palpable bone. On the left side the flap is intact on the medial aspect there is drainage coming from the wound bed in between the barbara. There is an opening on the lateral aspect approximately 2 cm x 2 cm with unknown depth given its location. We will currently continue with localized wound care as I discussed with the operating orthopedic surgeon about potential management. I discussed with the patient the current findings and the potential necessity for reoperation versus ray amputation. Versus potential salvage. Continue with IV antibiotics s/p debridement by plastic surgery 12/11 wound vac placed today by myself 12/12 d/c planning With follow with local wound care and evaluation We will discuss with orthopedic and medical team Thank you for allowing participate patient's care (2) Sacral decubitus ulcer Assessment & Plan: This is a 88-year-old male with multiple small full- thickness sacral decubitus ulcers. Patient states that he formed because he was laying flat for 15 days at an outside facility. Identified upon admission and initiated care plan. Periwound seems to have prior healing areas as well as acute inflamed areas with full-thickness breakdown approximately 1 cm x 1 cm on the left buttock/sacral cleft and similarly on the right as well. No active drainage. No foul order. Pt presented on admission with keloid scar with hyperpigmentation sacrum from previous pressure injury;confirmed by pt. Dry loose skin noted to R and L sacrum. No open areas noted. Pt denied tenderness when site palpated. Pt resistive to being repositioned on his sides and was educated of potential risks for already compromised skin to breakdown . Pt demonstrated ability to reposition self when cued.Demonstrated to pt on how to utilize side rails to off -lift buttocks and shift weight in bed. Skin lesions noted to R and L scalp. Pt verbalized he has skin cancer and lesions were recently removed. Hypergranular skin lesions also noted to Lateral L thigh. Apply Moisture Barrier Paste to Sacrum. Cover with Optifoam drsg. Change every 3 days and prn. Encourage and assist with repositioning at least every 2hours or as tolerated.Elevate BKA stumps on pillow. Turn every 2 hours. Patient willing and does assist with ensuring that he turns every so often Offload stump pressures with pillow Thank you for allowing me to participate in patient's care will follow with recommendations (3) Postoperative wound closure planning (4) Stump injury Assessment & Plan: s/p debridement by plastic surgery 12/11 wound vac placed today by myself 12/12 d/c planning plan for VAC upon discharge to SNF if decides he would like amputation will be available Findings: X-ray better demonstrates signs of recent surgery with surgical clips barbara at the site of a below the knee amputation. The cortical margin at the tibial stump appears intact both on x-ray and MRI. MRI examination does demonstrate bone marrow edema in the anterior inferior aspect of the tibial stump. Adjacent soft tissue swelling is present. Given recent surgery the soft tissue changes are expected. The bone marrow edema could be reactive marrow edema or due to osteomyelitis. Suspect the former. Similar signal alteration noted within the left tibial stump (left lower extremity partially imaged on this study on the transcoronal sequences). thank you (5) Infection of amputation stump, right lower extremity Jaiden Teresa Dec 18, 2018 10:26
--- NOTE | 2018-12-18 10:36 | Plastic Surgery Progress Note ---
Plastic Surgery-Progress Note Subjective Procedure Performed Excisional debridement of right bka stump wound, biopsy of tibia, bone culture. Additional Comments Patient is 1 week s/p debridement of right bka stump. He has been getting the wound vac to it for the past week. Objective Last 24 Hour Vital Signs Date Time Temp Pulse Resp B/P (MAP) Pulse Ox O2 Delivery O2 Flow Rate FiO2 12/18/18 09:07 98.9 12/18/18 08:48 Room Air 12/18/18 08:00 99.0 59 18 122/62 (82) 99 12/18/18 04:00 98.9 54 18 92/56 (68) 96 12/18/18 00:00 98.4 74 18 114/70 (85) 98 12/17/18 21:00 Room Air 12/17/18 20:00 98.4 75 18 109/67 (81) 96 12/17/18 16:00 97.9 78 18 92/74 (80) 98 12/17/18 11:57 98.1 72 18 102/72 (82) 98 I&O Intake and Output 12/17/18 12/18/18 19:00 07:00 Intake Total 700 ml 2400 ml Output Total 500 ml 935 ml Balance 200 ml 1465 ml Intake Oral 700 ml 700 ml IV Total 700 ml Other 1000 ml Output Urine Total 500 ml 900 ml Drainage Total 20 ml Estimated Blood Loss 15 ml # Voids 3 # Bowel Movements 1 1 Wound: other - Ulcer with some granulation tissue at the base. Undermining is improving. Periskin in good condtion. Skin Exam: normal inspection Assessment Post-op Diagnosis same Additional Comments Patient with stable right lower leg wound responding well to the wound vac. Recommend continuing wound vac to the ulcer and changing qm/w/f. Patient should continue wound vac upon discharge as well. If he goes home, he can be followed up by me at the outpatient wound center. If he is discharged to a snf then can continue wound vac therapy at the snf. Andrew Roldan MD Dec 18, 2018 10:36
[2018-12-18 12:00] VITALS: BP 124/66
--- NOTE | 2018-12-18 14:10 | Infectious Diseases Prog Note ---
Assessment/Plan Assessment/Plan IMPRESSION: 1. Amputation stump infection, more in the right side. - cultures; MRSA, Enterococcus ( VRE & Proteus - bone biopsy, like acute osteomyelitis 2 wound dehiscence of right amputation stump. 3. Anemia. 4. Hypothyroidism. 5. History of melanoma. 6. thrombocytopenia due to Zyvox RECOMMENDATIONS: 1. We will continue with Levaquin & PO Zyvox X 39 days 2. Waiting for placement 3. F/U CBC Subjective ROS Limited/Unobtainable: No Constitutional: Reports: no symptoms Cardiovascular: Reports: no symptoms Genitourinary: Reports: no symptoms Musculoskeletal: Reports: pain, other Allergies: Coded Allergies: No Known Allergies (Unverified , 01/04/17) Objective Vital Signs Last 24 Hour Vital Signs Date Time Temp Pulse Resp B/P (MAP) Pulse Ox O2 Delivery O2 Flow Rate FiO2 12/18/18 12:00 98.8 63 18 124/66 (85) 98 12/18/18 12:00 99.0 12/18/18 08:48 Room Air 12/18/18 08:00 99.0 59 18 122/62 (82) 99 12/18/18 04:00 98.9 54 18 92/56 (68) 96 12/18/18 00:00 98.4 74 18 114/70 (85) 98 12/17/18 21:00 Room Air 12/17/18 20:00 98.4 75 18 109/67 (81) 96 12/17/18 16:00 97.9 78 18 92/74 (80) 98 Height (Feet): 5 Height (Inches): 0.00 Weight (Pounds): 149 General Appearance: no acute distress HEENT: mucous membranes moist Respiratory/Chest: lungs clear Cardiovascular: normal rate, other - PICC line Abdomen: soft, non tender Extremities: no edema, other - bilateral BKA Skin: other - R leg stump woud-vac Current Medications Medications (Trade) Dose Ordered Sig/Trever Route PRN Reason Start Time Stop Time Status Last Admin Dose Admin Acetaminophen (Tylenol) 500 mg Q8H PRN ORAL Moderate Pain (Pain Scale 4-6) 12/05/18 23:15 01/04/19 23:14 Acetaminophen (Tylenol) 650 mg Q4H PRN ORAL Mild Pain/Temp > 100.5 12/05/18 23:15 01/04/19 23:14 Al Hydroxide/Mg Hydroxide (Mylanta II) 10 ml Q4H PRN ORAL indegestion 12/05/18 23:15 01/04/19 23:14 Bisacodyl (Dulcolax) 10 mg DAILYPRN PRN RECTAL Constipation 12/05/18 23:15 01/04/19 23:14 Chlorhexidine Gluconate (Sammie-Hex 2%) 1 applic DAILY@2000 TOPIC 12/06/18 20:00 01/05/19 19:59 12/17/18 21:15 Hydromorphone HCl (Dilaudid) 2 mg Q3H PRN IVP Severe Pain (Pain Scale 7-10) 12/13/18 01:15 12/20/18 01:14 12/18/18 11:30 Levofloxacin (Levaquin) 250 mg DAILY ORAL 12/16/18 09:00 12/23/18 08:59 12/18/18 09:09 Levothyroxine Sodium (Synthroid) 200 mcg DAILY@0630 ORAL 12/06/18 06:30 01/05/19 06:29 12/18/18 06:01 Linezolid (Zyvox) 600 mg EVERY 12 HOURS ORAL 12/14/18 12:00 12/24/18 11:59 12/18/18 09:09 Magnesium Hydroxide (Mom) 30 ml DAILYPRN PRN ORAL Constipation 12/05/18 23:15 01/04/19 23:14 Pantoprazole (Protonix) 40 mg DAILY ORAL 12/06/18 09:00 01/05/19 08:59 12/11/18 10:00 Sennosides (Senokot) 17.2 mg BEDTIME ORAL 12/06/18 21:00 01/05/19 20:59 12/06/18 20:34 Sodium Chloride 1,000 ml @ 75 mls/hr [id number] IV 12/10/18 09:45 01/09/19 09:44 12/18/18 01:54 Temazepam (Restoril) 15 mg HSPRN PRN ORAL Insomnia 12/14/18 00:05 12/21/18 00:04 12/18/18 01:49 Temazepam (Restoril) 30 mg HSPRN PRN ORAL Insomnia 12/13/18 22:15 12/20/18 22:14 12/17/18 22:53 Partha Obrien MD Dec 18, 2018 14:09
[2018-12-18 15:01] LABS: EOSINOPHILS % (AUTO) 3.5 % (0.0-3.0); HEMATOCRIT 32.5 % (42.0-52.0); HEMOGLOBIN 10.7 G/DL (14.2-18.0); LYMPHOCYTES % (AUTO) 26.8 % (20.0-45.0); MEAN CORPUSCULAR VOLUME 97 FL (80-99); MONOCYTES % (AUTO) 3.5 % (1.0-10.0); NEUTROPHILS % (AUTO) 65.2 % (45.0-75.0); PLATELET COUNT 148 K/UL (150-450); RED BLOOD COUNT 3.36 M/UL (4.70-6.10); RED CELL DISTRIBUTION WIDTH 14.1 % (11.6-14.8); WHITE BLOOD COUNT 6.6 K/UL (4.8-10.8)
[2018-12-18 16:00] VITALS: BP 120/68
[2018-12-18 20:00] VITALS: BP 95/60
[2018-12-18] MEDS: Dyna-Hex 2% Top Sol 2oz TOPIC SCH (20:27)
[2018-12-18] MEDS: Sennosides 8.6mg tab ORAL SCH (20:27)
--- NOTE | 2018-12-18 21:12 | General Progress Note ---
Assessment/Plan Problem List: (1) Leg pain ICD Codes: M79.606 - Leg pain SNOMED: 20621562 (2) Anemia ICD Codes: D64.9 - Anemia, unspecified SNOMED: 143258889 (3) Amputation stump infection ICD Codes: T87.40 - Infection of amputation stump, unspecified extremity SNOMED: 241922177 (4) Postoperative wound closure planning ICD Codes: Z48.1 - Encounter for planned postprocedural wound closure SNOMED: 918605866 (5) Stump injury ICD Codes: T14.8 - Other injury of unspecified body region SNOMED: 610234657 (6) Infection of amputation stump, right lower extremity ICD Codes: T87.43 - Infection of amputation stump, right lower extremity SNOMED: 910013759, 626999686 Status: stable, progressing Assessment/Plan: needs to go to snf w wound vac per dr bruce reviewed chart and lab drainage from wound site I&d by dr duarte s/p wound dehiscence iv abx per id afebrile Subjective ROS Limited/Unobtainable: Yes Allergies: Coded Allergies: No Known Allergies (Unverified , 01/04/17) Objective Last 24 Hour Vital Signs Date Time Temp Pulse Resp B/P (MAP) Pulse Ox O2 Delivery O2 Flow Rate FiO2 12/18/18 17:53 98.5 12/18/18 16:00 98.5 68 18 120/68 (85) 97 12/18/18 12:00 98.8 63 18 124/66 (85) 98 12/18/18 08:48 Room Air 12/18/18 08:00 99.0 59 18 122/62 (82) 99 12/18/18 04:00 98.9 54 18 92/56 (68) 96 12/18/18 00:00 98.4 74 18 114/70 (85) 98 Intake and Output 12/17/18 12/18/18 18:59 06:59 Intake Total 700 ml 2400 ml Output Total 500 ml 935 ml Balance 200 ml 1465 ml Intake Oral 700 ml 700 ml IV Total 700 ml Other 1000 ml Output Urine Total 500 ml 900 ml Drainage Total 20 ml Estimated Blood Loss 15 ml # Voids 3 # Bowel Movements 1 1 Laboratory Tests 12/18/18 14:35: White Blood Count 6.6, Red Blood Count 3.36L, Hemoglobin 10.7L, Hematocrit 32.5L , Mean Corpuscular Volume 97, Mean Corpuscular Hemoglobin 31.9H, Mean Corpuscular Hemoglobin Concent 33.0, Red Cell Distribution Width 14.1, Platelet Count 148L, Mean Platelet Volume 6.9, Neutrophils (%) (Auto) 65.2, Lymphocytes ( %) (Auto) 26.8, Monocytes (%) (Auto) 3.5, Eosinophils (%) (Auto) 3.5H, Basophils (%) (Auto) 1.0 Height (Feet): 5 Height (Inches): 0.00 Weight (Pounds): 149 Cardiovascular: normal rate Abdomen: soft Rossy Samuel MD Dec 18, 2018 21:11
[2018-12-19 04:00] VITALS: BP 108/65
[2018-12-19 08:00] VITALS: BP 110/66
--- NOTE | 2018-12-19 09:12 | Hematology/Onc Progress Note ---
Assessment/Plan Assessment/Plan IMPRESSION/RECS: # Anemia due to underlying iron deficiency, r/o gi bleed - also with multifactorial component --> anemia panel reviewed and noted with Iron def --> has been started on iv iron x 5 day course --> hgb transfuse if hgb lower than 7 --> hgb trend 10.6-->10.1-->9.9-->9.3-->10.7 --> HOLDING OFF LABS q3 days --> occult pending ++, dw pcp, outpatient w/u # Thrombocytopenia potentially due to meds --> plt trend 117-->148k # History of melanoma. --> currently in remission # Amputation stump infection, more in the right side. Appears likely osteo --> on cefepime/vanc--> leva/vanc x 34 d --> as per id recs --> surg, pod recs # Wound dehiscence of right amputation stump. --> eval with surg, pod # Hypothyroidism. --> started on synthroid # Dvt ppx scds Time of note does not necessarily correspond to when patient seen Greatly appreciate consultation. Subjective Cardiovascular: Denies: no symptoms, chest pain, edema, irregular heart rate, lightheadedness, palpitations, syncope, other Respiratory: Denies: no symptoms, cough, shortness of breath, SOB with excertion, SOB at rest, sputum, wheezing, other Gastrointestinal/Abdominal: Denies: no symptoms, abdomen distended, abdominal pain, black stools, tarry stools, blood in stool, constipated, diarrhea, difficulty swallowing, nausea, poor appetite, poor fluid intake, rectal bleeding , vomiting, other Endocrine: Denies: no symptoms, excessive sweating, flushing, intolerance to cold, intolerance to heat, increased hunger, increased thirst, increased urine, unexplained weight gain, unexplained weight loss, other Allergies: Coded Allergies: No Known Allergies (Unverified , 01/04/17) Subjective 12/09: no events, remains on abx, has been started on iv iron, hgb 9.9 12/11: s/p right leg wound debridement, cultures pending 12/12: vs stable, on abx, cultures noted, bleeding noted on dressing 12/13: no bleeding or chills, labs reviewed, no major night sweats 12/14: no events, no bleeding, wants to take off wound vac and take a shower, no f 12/15: no f/c, vs stable, no bleeding, no acute events, meds reviewed 12/17: leg pain, 3/10, refusing labs currently, no f/c, no bleeding 12/18: no changes, no bleeding, wound better 12/19: refusing labs, pain less today, laying flat Objective Objective Current Medications Medications (Trade) Dose Ordered Sig/Trever Route PRN Reason Start Time Stop Time Status Last Admin Dose Admin Acetaminophen (Tylenol) 500 mg Q8H PRN ORAL Moderate Pain (Pain Scale 4-6) 12/05/18 23:15 01/04/19 23:14 Acetaminophen (Tylenol) 650 mg Q4H PRN ORAL Mild Pain/Temp > 100.5 12/05/18 23:15 01/04/19 23:14 Al Hydroxide/Mg Hydroxide (Mylanta II) 10 ml Q4H PRN ORAL indegestion 12/05/18 23:15 01/04/19 23:14 Bisacodyl (Dulcolax) 10 mg DAILYPRN PRN RECTAL Constipation 12/05/18 23:15 01/04/19 23:14 Chlorhexidine Gluconate (Sammie-Hex 2%) 1 applic DAILY@1999 TOPIC 12/06/18 20:00 01/05/19 19:59 12/18/18 20:27 Hydromorphone HCl (Dilaudid) 2 mg Q3H PRN IVP Severe Pain (Pain Scale 7-10) 12/13/18 01:15 12/20/18 01:14 12/19/18 09:06 Levofloxacin (Levaquin) 250 mg DAILY ORAL 12/16/18 09:00 12/23/18 08:59 12/19/18 08:44 Levothyroxine Sodium (Synthroid) 200 mcg DAILY@0630 ORAL 12/06/18 06:30 01/05/19 06:29 12/19/18 06:04 Linezolid (Zyvox) 600 mg EVERY 12 HOURS ORAL 12/14/18 12:00 12/24/18 11:59 12/19/18 08:44 Magnesium Hydroxide (Mom) 30 ml DAILYPRN PRN ORAL Constipation 12/05/18 23:15 01/04/19 23:14 Pantoprazole (Protonix) 40 mg DAILY ORAL 12/06/18 09:00 01/05/19 08:59 12/11/18 10:00 Sennosides (Senokot) 17.2 mg BEDTIME ORAL 12/06/18 21:00 01/05/19 20:59 12/06/18 20:34 Sodium Chloride 1,000 ml @ 75 mls/hr [id number] IV 12/10/18 09:45 01/09/19 09:44 12/19/18 06:09 Temazepam (Restoril) 15 mg HSPRN PRN ORAL Insomnia 12/14/18 00:05 12/21/18 00:04 12/19/18 03:07 Temazepam (Restoril) 30 mg HSPRN PRN ORAL Insomnia 12/13/18 22:15 12/20/18 22:14 12/18/18 22:21 Last 24 Hour Vital Signs Date Time Temp Pulse Resp B/P (MAP) Pulse Ox O2 Delivery O2 Flow Rate FiO2 12/19/18 04:00 98.5 75 20 108/65 (79) 97 12/18/18 21:00 Room Air 12/18/18 20:00 98.8 81 20 95/60 (72) 97 12/18/18 17:53 98.5 12/18/18 16:00 98.5 68 18 120/68 (85) 97 12/18/18 12:00 98.8 63 18 124/66 (85) 98 12/18/18 08:48 Room Air 12/18/18 08:00 99.0 59 18 122/62 (82) 99 12/18/18 04:00 98.9 54 18 92/56 (68) 96 12/18/18 00:00 98.4 74 18 114/70 (85) 98 12/17/18 21:00 Room Air 12/17/18 20:00 98.4 75 18 109/67 (81) 96 12/17/18 16:00 97.9 78 18 92/74 (80) 98 12/17/18 11:57 98.1 72 18 102/72 (82) 98 Intake and Output 12/18/18 12/19/18 19:00 07:00 Intake Total 1225 ml 75 ml Output Total 555 ml 500 ml Balance 670 ml -425 ml Intake Oral 400 ml IV Total 825 ml 75 ml Output Urine Total 550 ml 500 ml Drainage Total 5 ml # Voids 2 # Bowel Movements 1 Labs Test 12/18/18 14:35 White Blood Count 6.6 K/UL (4.8-10.8) Red Blood Count 3.36 M/UL (4.70-6.10) Hemoglobin 10.7 G/DL (14.2-18.0) Hematocrit 32.5 % (42.0-52.0) Mean Corpuscular Volume 97 FL (80-99) Mean Corpuscular Hemoglobin 31.9 PG (27.0-31.0) Mean Corpuscular Hemoglobin Concent 33.0 G/DL (32.0-36.0) Red Cell Distribution Width 14.1 % (11.6-14.8) Platelet Count 148 K/UL (150-450) Mean Platelet Volume 6.9 FL (6.5-10.1) Neutrophils (%) (Auto) 65.2 % (45.0-75.0) Lymphocytes (%) (Auto) 26.8 % (20.0-45.0) Monocytes (%) (Auto) 3.5 % (1.0-10.0) Eosinophils (%) (Auto) 3.5 % (0.0-3.0) Basophils (%) (Auto) 1.0 % (0.0-2.0) Height (Feet): 5 Height (Inches): 0.00 Weight (Pounds): 149 Objective Gen: Nad Pulm: Ctab CV: rrr, no mgr Abd: soft, nt, nd Ext: b/l nka noted, dressings+ Oseas Tong MD Dec 19, 2018 09:12
[2018-12-19 12:00] VITALS: BP 116/68
--- NOTE | 2018-12-19 14:27 | Infectious Diseases Prog Note ---
Assessment/Plan Assessment/Plan IMPRESSION: 1. Amputation stump infection, more in the right side. - cultures; MRSA, Enterococcus ( VRE & Proteus - bone biopsy, like acute osteomyelitis 2 wound dehiscence of right amputation stump. 3. Anemia. 4. Hypothyroidism. 5. History of melanoma. 6. thrombocytopenia due to Zyvox RECOMMENDATIONS: 1. We will continue with Levaquin & PO Zyvox X 28 days 2. Waiting for placement 3. F/U CBC Subjective ROS Limited/Unobtainable: No Constitutional: Reports: no symptoms Respiratory: Reports: no symptoms Gastrointestinal/Abdominal: Reports: no symptoms Genitourinary: Reports: no symptoms Musculoskeletal: Reports: pain Allergies: Coded Allergies: No Known Allergies (Unverified , 01/04/17) Objective Vital Signs Last 24 Hour Vital Signs Date Time Temp Pulse Resp B/P (MAP) Pulse Ox O2 Delivery O2 Flow Rate FiO2 12/19/18 12:00 98.4 88 20 116/68 (84) 97 12/19/18 09:00 Room Air 12/19/18 08:00 98.6 77 19 110/66 (81) 98 12/19/18 04:00 98.5 75 20 108/65 (79) 97 12/18/18 21:00 Room Air 12/18/18 20:00 98.8 81 20 95/60 (72) 97 12/18/18 17:53 98.5 12/18/18 16:00 98.5 68 18 120/68 (85) 97 Height (Feet): 5 Height (Inches): 0.00 Weight (Pounds): 149 General Appearance: no acute distress HEENT: mucous membranes moist Respiratory/Chest: lungs clear Cardiovascular: normal rate, other - PICC line Abdomen: soft, non tender Extremities: no edema, other - Bilateral BKA Skin: ulcers, other - stump ulcers Neurologic/Psychiatric: alert, oriented x 3, responsive Laboratory Tests Test 12/18/18 14:35 White Blood Count 6.6 K/UL (4.8-10.8) Red Blood Count 3.36 M/UL (4.70-6.10) L Hemoglobin 10.7 G/DL (14.2-18.0) L Hematocrit 32.5 % (42.0-52.0) L Mean Corpuscular Volume 97 FL (80-99) Mean Corpuscular Hemoglobin 31.9 PG (27.0-31.0) H Mean Corpuscular Hemoglobin Concent 33.0 G/DL (32.0-36.0) Red Cell Distribution Width 14.1 % (11.6-14.8) Platelet Count 148 K/UL (150-450) L Mean Platelet Volume 6.9 FL (6.5-10.1) Neutrophils (%) (Auto) 65.2 % (45.0-75.0) Lymphocytes (%) (Auto) 26.8 % (20.0-45.0) Monocytes (%) (Auto) 3.5 % (1.0-10.0) Eosinophils (%) (Auto) 3.5 % (0.0-3.0) H Basophils (%) (Auto) 1.0 % (0.0-2.0) Current Medications Medications (Trade) Dose Ordered Sig/Trever Route PRN Reason Start Time Stop Time Status Last Admin Dose Admin Acetaminophen (Tylenol) 500 mg Q8H PRN ORAL Moderate Pain (Pain Scale 4-6) 12/05/18 23:15 01/04/19 23:14 Acetaminophen (Tylenol) 650 mg Q4H PRN ORAL Mild Pain/Temp > 100.5 12/05/18 23:15 01/04/19 23:14 Al Hydroxide/Mg Hydroxide (Mylanta II) 10 ml Q4H PRN ORAL indegestion 12/05/18 23:15 01/04/19 23:14 Bisacodyl (Dulcolax) 10 mg DAILYPRN PRN RECTAL Constipation 12/05/18 23:15 01/04/19 23:14 Chlorhexidine Gluconate (Sammie-Hex 2%) 1 applic DAILY@1999 TOPIC 12/06/18 20:00 01/05/19 19:59 12/18/18 20:27 Hydromorphone HCl (Dilaudid) 2 mg Q3H PRN IVP Severe Pain (Pain Scale 7-10) 12/13/18 01:15 12/20/18 01:14 12/19/18 12:06 Levofloxacin (Levaquin) 250 mg DAILY ORAL 12/16/18 09:00 12/26/18 23:59 12/19/18 08:44 Levothyroxine Sodium (Synthroid) 200 mcg DAILY@0630 ORAL 12/06/18 06:30 01/05/19 06:29 12/19/18 06:04 Linezolid (Zyvox) 600 mg EVERY 12 HOURS ORAL 12/14/18 12:00 12/26/18 23:59 12/19/18 08:44 Magnesium Hydroxide (Mom) 30 ml DAILYPRN PRN ORAL Constipation 12/05/18 23:15 01/04/19 23:14 Pantoprazole (Protonix) 40 mg DAILY ORAL 12/06/18 09:00 01/05/19 08:59 12/11/18 10:00 Sennosides (Senokot) 17.2 mg BEDTIME ORAL 12/06/18 21:00 01/05/19 20:59 12/06/18 20:34 Sodium Chloride 1,000 ml @ 75 mls/hr [id number] IV 12/10/18 09:45 01/09/19 09:44 12/19/18 06:09 Temazepam (Restoril) 15 mg HSPRN PRN ORAL Insomnia 12/14/18 00:05 12/21/18 00:04 12/19/18 03:07 Temazepam (Restoril) 30 mg HSPRN PRN ORAL Insomnia 12/13/18 22:15 12/20/18 22:14 12/18/18 22:21 Partha Obrien MD Dec 19, 2018 14:27
--- NOTE | 2018-12-19 15:54 | Surgery Progress Note ---
Surgery Progress Note Subjective Symptoms: improved, tolerating diet, voiding well, passing flatus, BM, pain decreased Objective Last 24 Hour Vital Signs Date Time Temp Pulse Resp B/P (MAP) Pulse Ox O2 Delivery O2 Flow Rate FiO2 12/19/18 12:00 98.4 88 20 116/68 (84) 97 12/19/18 09:00 Room Air 12/19/18 08:00 98.6 77 19 110/66 (81) 98 12/19/18 04:00 98.5 75 20 108/65 (79) 97 12/18/18 21:00 Room Air 12/18/18 20:00 98.8 81 20 95/60 (72) 97 12/18/18 17:53 98.5 12/18/18 16:00 98.5 68 18 120/68 (85) 97 I&O Intake and Output 12/18/18 12/19/18 19:00 07:00 Intake Total 1225 ml 75 ml Output Total 555 ml 500 ml Balance 670 ml -425 ml Intake Oral 400 ml IV Total 825 ml 75 ml Output Urine Total 550 ml 500 ml Drainage Total 5 ml # Voids 2 # Bowel Movements 1 Dressing: dry Wound: clean Drains: wound vac Cardiovascular: RSR Respiratory: clear Abdomen: soft, flat, non-tender, present bowel sounds Extremities: no tenderness, no cyanosis, other Plan Problems: (1) Amputation stump infection Assessment & Plan: bilateral lower extremity below-knee amputations. On the right side the recent revision flap has dehisced and serous purulent drainage identified with viable sutures and palpable bone. On the left side the flap is intact on the medial aspect there is drainage coming from the wound bed in between the barbara. There is an opening on the lateral aspect approximately 2 cm x 2 cm with unknown depth given its location. We will currently continue with localized wound care as I discussed with the operating orthopedic surgeon about potential management. I discussed with the patient the current findings and the potential necessity for reoperation versus ray amputation. Versus potential salvage. Continue with IV antibiotics s/p debridement by plastic surgery 12/11 wound vac placed today by myself 12/12 d/c planning With follow with local wound care and evaluation We will discuss with orthopedic and medical team Thank you for allowing participate patient's care (2) Sacral decubitus ulcer Assessment & Plan: This is a 88-year-old male with multiple small full- thickness sacral decubitus ulcers. Patient states that he formed because he was laying flat for 15 days at an outside facility. Identified upon admission and initiated care plan. Periwound seems to have prior healing areas as well as acute inflamed areas with full-thickness breakdown approximately 1 cm x 1 cm on the left buttock/sacral cleft and similarly on the right as well. No active drainage. No foul order. Pt presented on admission with keloid scar with hyperpigmentation sacrum from previous pressure injury;confirmed by pt. Dry loose skin noted to R and L sacrum. No open areas noted. Pt denied tenderness when site palpated. Pt resistive to being repositioned on his sides and was educated of potential risks for already compromised skin to breakdown . Pt demonstrated ability to reposition self when cued.Demonstrated to pt on how to utilize side rails to off -lift buttocks and shift weight in bed. Skin lesions noted to R and L scalp. Pt verbalized he has skin cancer and lesions were recently removed. Hypergranular skin lesions also noted to Lateral L thigh. Apply Moisture Barrier Paste to Sacrum. Cover with Optifoam drsg. Change every 3 days and prn. Encourage and assist with repositioning at least every 2hours or as tolerated.Elevate BKA stumps on pillow. Turn every 2 hours. Patient willing and does assist with ensuring that he turns every so often Offload stump pressures with pillow Thank you for allowing me to participate in patient's care will follow with recommendations (3) Postoperative wound closure planning (4) Stump injury Assessment & Plan: s/p debridement by plastic surgery 12/11 wound vac placed today by myself 12/12 d/c planning plan for VAC upon discharge to SNF if decides he would like amputation will be available Findings: X-ray better demonstrates signs of recent surgery with surgical clips barbara at the site of a below the knee amputation. The cortical margin at the tibial stump appears intact both on x-ray and MRI. MRI examination does demonstrate bone marrow edema in the anterior inferior aspect of the tibial stump. Adjacent soft tissue swelling is present. Given recent surgery the soft tissue changes are expected. The bone marrow edema could be reactive marrow edema or due to osteomyelitis. Suspect the former. Similar signal alteration noted within the left tibial stump (left lower extremity partially imaged on this study on the transcoronal sequences). thank you (5) Infection of amputation stump, right lower extremity Assessment & Plan: much improved d/c planning cont vac on d/c Jaiden Teresa Dec 19, 2018 15:54
[2018-12-19 16:00] VITALS: BP 120/66
[2018-12-19 20:00] VITALS: BP 112/71
[2018-12-19] MEDS: Dyna-Hex 2% Top Sol 2oz TOPIC SCH (20:22)
[2018-12-19] MEDS: Sennosides 8.6mg tab ORAL SCH ×2 (21:00→21:10)
--- NOTE | 2018-12-19 21:31 | General Progress Note ---
Assessment/Plan Problem List: (1) Leg pain ICD Codes: M79.606 - Leg pain SNOMED: 67349566 (2) Anemia ICD Codes: D64.9 - Anemia, unspecified SNOMED: 981012083 (3) Amputation stump infection ICD Codes: T87.40 - Infection of amputation stump, unspecified extremity SNOMED: 606563233 (4) Postoperative wound closure planning ICD Codes: Z48.1 - Encounter for planned postprocedural wound closure SNOMED: 757663394 (5) Stump injury ICD Codes: T14.8 - Other injury of unspecified body region SNOMED: 028089140 (6) Infection of amputation stump, right lower extremity ICD Codes: T87.43 - Infection of amputation stump, right lower extremity SNOMED: 369197631, 876397433 Status: stable, progressing Assessment/Plan: needs to go to snf w wound vac per dr bruce r I&d by dr duarte s/p wound dehiscence iv abx per id needs snf placement for wound care and iv abx Subjective ROS Limited/Unobtainable: Yes Allergies: Coded Allergies: No Known Allergies (Unverified , 01/04/17) Objective Last 24 Hour Vital Signs Date Time Temp Pulse Resp B/P (MAP) Pulse Ox O2 Delivery O2 Flow Rate FiO2 12/19/18 16:00 98.2 74 19 120/66 (84) 98 12/19/18 12:00 98.4 88 20 116/68 (84) 97 12/19/18 09:00 Room Air 12/19/18 08:00 98.6 77 19 110/66 (81) 98 12/19/18 04:00 98.5 75 20 108/65 (79) 97 Intake and Output 12/18/18 12/19/18 18:59 06:59 Intake Total 1300 ml 75 ml Output Total 555 ml 500 ml Balance 745 ml -425 ml Intake Oral 400 ml IV Total 900 ml 75 ml Output Urine Total 550 ml 500 ml Drainage Total 5 ml # Voids 2 # Bowel Movements 1 Height (Feet): 5 Height (Inches): 0.00 Weight (Pounds): 149 Cardiovascular: normal rate Respiratory/Chest: lungs clear Abdomen: soft Rossy Samuel MD Dec 19, 2018 21:31
[2018-12-20] VITALS: BP 119/54
[2018-12-20 04:00] VITALS: BP 104/58
--- NOTE | 2018-12-20 06:27 | Hematology/Onc Progress Note ---
Assessment/Plan Assessment/Plan IMPRESSION/RECS: # Anemia due to underlying iron deficiency, r/o gi bleed - also with multifactorial component --> anemia panel reviewed and noted with Iron def --> has been started on iv iron x 5 day course --> hgb transfuse if hgb lower than 7 --> hgb trend 10.6-->10.1-->9.9-->9.3-->10.7 --> HOLDING OFF LABS q3 days --> occult pending ++, dw pcp, outpatient w/u # Thrombocytopenia potentially due to meds --> plt trend 117-->148k # History of melanoma. --> currently in remission # Amputation stump infection, more in the right side. Appears likely osteo --> on cefepime/vanc--> leva/vanc x 34 d --> as per id recs --> surg, pod recs # Wound dehiscence of right amputation stump. --> eval with surg, pod # Hypothyroidism. --> started on synthroid # Dvt ppx scds Time of note does not necessarily correspond to when patient seen Greatly appreciate consultation. Subjective Constitutional: Denies: no symptoms, chills, fever, malaise, weakness, other HEENT: Denies: no symptoms, eye pain, blurred vision, tearing, double vision, ear pain, ear discharge, nose pain, nose congestion, throat pain, throat swelling, mouth pain, mouth swelling, other Cardiovascular: Denies: no symptoms, chest pain, edema, irregular heart rate, lightheadedness, palpitations, syncope, other Gastrointestinal/Abdominal: Denies: no symptoms, abdomen distended, abdominal pain, black stools, tarry stools, blood in stool, constipated, diarrhea, difficulty swallowing, nausea, poor appetite, poor fluid intake, rectal bleeding , vomiting, other Genitourinary: Denies: no symptoms, burning, discharge, frequency, flank pain, hematuria, incontinence, pain, urgency, other Neurologic/Psychiatric: Denies: no symptoms, anxiety, depressed, emotional problems, headache, numbness, paresthesia, pre-existing deficit, seizure, tingling, tremors, weakness, other Endocrine: Denies: no symptoms, excessive sweating, flushing, intolerance to cold, intolerance to heat, increased hunger, increased thirst, increased urine, unexplained weight gain, unexplained weight loss, other Allergies: Coded Allergies: No Known Allergies (Unverified , 01/04/17) Subjective 12/09: no events, remains on abx, has been started on iv iron, hgb 9.9 12/11: s/p right leg wound debridement, cultures pending 12/12: vs stable, on abx, cultures noted, bleeding noted on dressing 12/13: no bleeding or chills, labs reviewed, no major night sweats 12/14: no events, no bleeding, wants to take off wound vac and take a shower, no f 12/15: no f/c, vs stable, no bleeding, no acute events, meds reviewed 12/17: leg pain, 06/11, refusing labs currently, no f/c, no bleeding 12/18: no changes, no bleeding, wound better 12/19: refusing labs, pain less today, laying flat 12/20: complaining with rn has had too many blood draws Objective Objective Current Medications Medications (Trade) Dose Ordered Sig/Trever Route PRN Reason Start Time Stop Time Status Last Admin Dose Admin Acetaminophen (Tylenol) 500 mg Q8H PRN ORAL Moderate Pain (Pain Scale 4-6) 12/05/18 23:15 01/04/19 23:14 Acetaminophen (Tylenol) 650 mg Q4H PRN ORAL Mild Pain/Temp > 100.5 12/05/18 23:15 01/04/19 23:14 Al Hydroxide/Mg Hydroxide (Mylanta II) 10 ml Q4H PRN ORAL indegestion 12/05/18 23:15 01/04/19 23:14 Bisacodyl (Dulcolax) 10 mg DAILYPRN PRN RECTAL Constipation 12/05/18 23:15 01/04/19 23:14 Chlorhexidine Gluconate (Sammie-Hex 2%) 1 applic DAILY@2000 TOPIC 12/06/18 20:00 01/05/19 19:59 12/19/18 20:22 Hydromorphone HCl (Dilaudid) 2 mg Q3H PRN IVP SEVERE PAIN 7-10 12/20/18 06:15 12/27/18 06:14 Levofloxacin (Levaquin) 250 mg DAILY ORAL 12/16/18 09:00 12/26/18 23:59 12/19/18 08:44 Levothyroxine Sodium (Synthroid) 200 mcg DAILY@0630 ORAL 12/06/18 06:30 01/05/19 06:29 12/20/18 06:13 Linezolid (Zyvox) 600 mg EVERY 12 HOURS ORAL 12/14/18 12:00 12/26/18 23:59 12/19/18 21:10 Magnesium Hydroxide (Mom) 30 ml DAILYPRN PRN ORAL Constipation 12/05/18 23:15 01/04/19 23:14 Pantoprazole (Protonix) 40 mg DAILY ORAL 12/06/18 09:00 01/05/19 08:59 12/11/18 10:00 Sennosides (Senokot) 17.2 mg BEDTIME ORAL 12/06/18 21:00 01/05/19 20:59 12/06/18 20:34 Sodium Chloride 1,000 ml @ 75 mls/hr [id number] IV 12/10/18 09:45 01/09/19 09:44 12/19/18 21:09 Temazepam (Restoril) 15 mg HSPRN PRN ORAL Insomnia 12/14/18 00:05 12/21/18 00:04 12/19/18 03:07 Temazepam (Restoril) 30 mg HSPRN PRN ORAL Insomnia 12/13/18 22:15 12/20/18 22:14 12/19/18 22:22 Last 24 Hour Vital Signs Date Time Temp Pulse Resp B/P (MAP) Pulse Ox O2 Delivery O2 Flow Rate FiO2 12/20/18 00:00 97.9 65 18 119/54 (75) 95 12/19/18 21:00 Room Air 12/19/18 20:00 98.1 82 18 112/71 (85) 98 12/19/18 16:00 98.2 74 19 120/66 (84) 98 12/19/18 12:00 98.4 88 20 116/68 (84) 97 12/19/18 09:00 Room Air 12/19/18 08:00 98.6 77 19 110/66 (81) 98 12/19/18 04:00 98.5 75 20 108/65 (79) 97 12/18/18 21:00 Room Air 12/18/18 20:00 98.8 81 20 95/60 (72) 97 12/18/18 17:53 98.5 12/18/18 16:00 98.5 68 18 120/68 (85) 97 12/18/18 12:00 98.8 63 18 124/66 (85) 98 12/18/18 08:48 Room Air 12/18/18 08:00 99.0 59 18 122/62 (82) 99 Intake and Output 12/19/18 12/20/18 19:00 07:00 Intake Total 450 ml 450 ml Output Total 715 ml 1600 ml Balance -265 ml -1150 ml Intake Oral 450 ml IV Total 450 ml Output Urine Total 700 ml 1600 ml Drainage Total 15 ml # Voids 2 Labs Test 12/18/18 14:35 White Blood Count 6.6 K/UL (4.8-10.8) Red Blood Count 3.36 M/UL (4.70-6.10) Hemoglobin 10.7 G/DL (14.2-18.0) Hematocrit 32.5 % (42.0-52.0) Mean Corpuscular Volume 97 FL (80-99) Mean Corpuscular Hemoglobin 31.9 PG (27.0-31.0) Mean Corpuscular Hemoglobin Concent 33.0 G/DL (32.0-36.0) Red Cell Distribution Width 14.1 % (11.6-14.8) Platelet Count 148 K/UL (150-450) Mean Platelet Volume 6.9 FL (6.5-10.1) Neutrophils (%) (Auto) 65.2 % (45.0-75.0) Lymphocytes (%) (Auto) 26.8 % (20.0-45.0) Monocytes (%) (Auto) 3.5 % (1.0-10.0) Eosinophils (%) (Auto) 3.5 % (0.0-3.0) Basophils (%) (Auto) 1.0 % (0.0-2.0) Height (Feet): 5 Height (Inches): 0.00 Weight (Pounds): 149 Objective Gen: Nad Pulm: Ctab CV: rrr, no mgr Abd: soft, nt, nd Ext: b/l nka noted, dressings+ Oseas Tong MD Dec 20, 2018 06:27
[2018-12-20 08:00] VITALS: BP 107/60
--- NOTE | 2018-12-20 10:21 | Infectious Diseases Prog Note ---
Assessment/Plan Assessment/Plan IMPRESSION: 1. Amputation stump infection, more in the right side. - cultures; MRSA, Enterococcus ( VRE & Proteus - bone biopsy, like acute osteomyelitis 2 wound dehiscence of right amputation stump. 3. Anemia. 4. Hypothyroidism. 5. History of melanoma. 6. thrombocytopenia due to Zyvox RECOMMENDATIONS: 1. We will continue with Levaquin & PO Zyvox X 27 days 2. Waiting for placement 3. F/U CBC weekly Subjective ROS Limited/Unobtainable: No Respiratory: Reports: no symptoms Cardiovascular: Reports: no symptoms Gastrointestinal/Abdominal: Reports: no symptoms Genitourinary: Reports: no symptoms Musculoskeletal: Reports: pain Allergies: Coded Allergies: No Known Allergies (Unverified , 01/04/17) Objective Vital Signs Last 24 Hour Vital Signs Date Time Temp Pulse Resp B/P (MAP) Pulse Ox O2 Delivery O2 Flow Rate FiO2 12/20/18 04:00 97.9 68 18 104/58 (73) 99 12/20/18 00:00 97.9 65 18 119/54 (75) 95 12/19/18 21:00 Room Air 12/19/18 20:00 98.1 82 18 112/71 (85) 98 12/19/18 16:00 98.2 74 19 120/66 (84) 98 12/19/18 12:00 98.4 88 20 116/68 (84) 97 Height (Feet): 5 Height (Inches): 0.00 Weight (Pounds): 149 General Appearance: no acute distress HEENT: mucous membranes moist Respiratory/Chest: chest wall non-tender Cardiovascular: normal rate, other Abdomen: soft, non tender Extremities: other - Bilater BKA Skin: ulcers, other - healing Neurologic/Psychiatric: alert, oriented x 3, responsive Current Medications Medications (Trade) Dose Ordered Sig/Trever Route PRN Reason Start Time Stop Time Status Last Admin Dose Admin Acetaminophen (Tylenol) 500 mg Q8H PRN ORAL Moderate Pain (Pain Scale 4-6) 12/05/18 23:15 01/04/19 23:14 Acetaminophen (Tylenol) 650 mg Q4H PRN ORAL Mild Pain/Temp > 100.5 12/05/18 23:15 01/04/19 23:14 Al Hydroxide/Mg Hydroxide (Mylanta II) 10 ml Q4H PRN ORAL indegestion 12/05/18 23:15 01/04/19 23:14 Bisacodyl (Dulcolax) 10 mg DAILYPRN PRN RECTAL Constipation 12/05/18 23:15 01/04/19 23:14 Chlorhexidine Gluconate (Sammie-Hex 2%) 1 applic DAILY@2000 TOPIC 12/06/18 20:00 01/05/19 19:59 12/19/18 20:22 Hydromorphone HCl (Dilaudid) 2 mg Q3H PRN IVP SEVERE PAIN 7-10 12/20/18 06:15 12/27/18 06:14 12/20/18 09:32 Levofloxacin (Levaquin) 250 mg DAILY ORAL 12/16/18 09:00 12/26/18 23:59 12/20/18 09:31 Levothyroxine Sodium (Synthroid) 200 mcg DAILY@0630 ORAL 12/06/18 06:30 01/05/19 06:29 12/20/18 06:13 Linezolid (Zyvox) 600 mg EVERY 12 HOURS ORAL 12/14/18 12:00 12/26/18 23:59 12/20/18 09:31 Magnesium Hydroxide (Mom) 30 ml DAILYPRN PRN ORAL Constipation 12/05/18 23:15 01/04/19 23:14 Pantoprazole (Protonix) 40 mg DAILY ORAL 12/06/18 09:00 01/05/19 08:59 12/11/18 10:00 Sennosides (Senokot) 17.2 mg BEDTIME ORAL 12/06/18 21:00 01/05/19 20:59 12/06/18 20:34 Sodium Chloride 1,000 ml @ 75 mls/hr [id number] IV 12/10/18 09:45 01/09/19 09:44 12/20/18 09:32 Temazepam (Restoril) 15 mg HSPRN PRN ORAL Insomnia 12/14/18 00:05 12/21/18 00:04 12/19/18 03:07 Temazepam (Restoril) 30 mg HSPRN PRN ORAL Insomnia 12/13/18 22:15 12/20/18 22:14 12/19/18 22:22 Partha Obrien MD Dec 20, 2018 10:21
[2018-12-20 12:00] VITALS: BP 115/72
--- NOTE | 2018-12-20 12:51 | General Progress Note ---
Assessment/Plan Problem List: (1) Leg pain ICD Codes: M79.606 - Leg pain SNOMED: 95138783 (2) Anemia ICD Codes: D64.9 - Anemia, unspecified SNOMED: 845619611 (3) Amputation stump infection ICD Codes: T87.40 - Infection of amputation stump, unspecified extremity SNOMED: 942834995 (4) Postoperative wound closure planning ICD Codes: Z48.1 - Encounter for planned postprocedural wound closure SNOMED: 995891307 (5) Stump injury ICD Codes: T14.8 - Other injury of unspecified body region SNOMED: 479488528 (6) Infection of amputation stump, right lower extremity ICD Codes: T87.43 - Infection of amputation stump, right lower extremity SNOMED: 961573308, 343944825 Status: stable, progressing Assessment/Plan: labs normal afebrile reviewed chart and labs and meds I&d by dr duarte s/p wound dehiscence needs snf placement for wound care and iv abx Subjective ROS Limited/Unobtainable: Yes Allergies: Coded Allergies: No Known Allergies (Unverified , 01/04/17) Objective Last 24 Hour Vital Signs Date Time Temp Pulse Resp B/P (MAP) Pulse Ox O2 Delivery O2 Flow Rate FiO2 12/20/18 08:00 Room Air 12/20/18 08:00 97.8 70 18 107/60 (76) 100 12/20/18 04:00 97.9 68 18 104/58 (73) 99 12/20/18 00:00 97.9 65 18 119/54 (75) 95 12/19/18 21:00 Room Air 12/19/18 20:00 98.1 82 18 112/71 (85) 98 12/19/18 16:00 98.2 74 19 120/66 (84) 98 Intake and Output 12/19/18 12/20/18 19:00 07:00 Intake Total 450 ml 675 ml Output Total 715 ml 1600 ml Balance -265 ml -925 ml Intake Oral 450 ml IV Total 675 ml Output Urine Total 700 ml 1600 ml Drainage Total 15 ml # Voids 2 Height (Feet): 5 Height (Inches): 0.00 Weight (Pounds): 149 Cardiovascular: normal rate Respiratory/Chest: lungs clear Abdomen: soft Rossy Samuel MD Dec 20, 2018 12:51
--- NOTE | 2018-12-20 14:03 | Surgery Progress Note ---
Surgery Progress Note Subjective Symptoms: improved, tolerating diet, voiding well, passing flatus, BM Objective Last 24 Hour Vital Signs Date Time Temp Pulse Resp B/P (MAP) Pulse Ox O2 Delivery O2 Flow Rate FiO2 12/20/18 12:00 98.0 72 18 115/72 (86) 97 12/20/18 08:00 Room Air 12/20/18 08:00 97.8 70 18 107/60 (76) 100 12/20/18 04:00 97.9 68 18 104/58 (73) 99 12/20/18 00:00 97.9 65 18 119/54 (75) 95 12/19/18 21:00 Room Air 12/19/18 20:00 98.1 82 18 112/71 (85) 98 12/19/18 16:00 98.2 74 19 120/66 (84) 98 I&O Intake and Output 12/19/18 12/20/18 19:00 07:00 Intake Total 450 ml 675 ml Output Total 715 ml 1600 ml Balance -265 ml -925 ml Intake Oral 450 ml IV Total 675 ml Output Urine Total 700 ml 1600 ml Drainage Total 15 ml # Voids 2 Dressing: dry Wound: clean, dry Drains: wound vac Cardiovascular: RSR Respiratory: clear Abdomen: soft, non-tender, present bowel sounds Extremities: no cyanosis, other Plan Problems: (1) Amputation stump infection Assessment & Plan: bilateral lower extremity below-knee amputations. On the right side the recent revision flap has dehisced and serous purulent drainage identified with viable sutures and palpable bone. On the left side the flap is intact on the medial aspect there is drainage coming from the wound bed in between the barbara. There is an opening on the lateral aspect approximately 2 cm x 2 cm with unknown depth given its location. We will currently continue with localized wound care as I discussed with the operating orthopedic surgeon about potential management. I discussed with the patient the current findings and the potential necessity for reoperation versus ray amputation. Versus potential salvage. Continue with IV antibiotics s/p debridement by plastic surgery 12/11 wound vac placed today by myself 12/12 d/c planning With follow with local wound care and evaluation We will discuss with orthopedic and medical team Thank you for allowing participate patient's care (2) Sacral decubitus ulcer Assessment & Plan: This is a 88-year-old male with multiple small full- thickness sacral decubitus ulcers. Patient states that he formed because he was laying flat for 15 days at an outside facility. Identified upon admission and initiated care plan. Periwound seems to have prior healing areas as well as acute inflamed areas with full-thickness breakdown approximately 1 cm x 1 cm on the left buttock/sacral cleft and similarly on the right as well. No active drainage. No foul order. Pt presented on admission with keloid scar with hyperpigmentation sacrum from previous pressure injury;confirmed by pt. Dry loose skin noted to R and L sacrum. No open areas noted. Pt denied tenderness when site palpated. Pt resistive to being repositioned on his sides and was educated of potential risks for already compromised skin to breakdown . Pt demonstrated ability to reposition self when cued.Demonstrated to pt on how to utilize side rails to off -lift buttocks and shift weight in bed. Skin lesions noted to R and L scalp. Pt verbalized he has skin cancer and lesions were recently removed. Hypergranular skin lesions also noted to Lateral L thigh. Apply Moisture Barrier Paste to Sacrum. Cover with Optifoam drsg. Change every 3 days and prn. Encourage and assist with repositioning at least every 2hours or as tolerated.Elevate BKA stumps on pillow. Turn every 2 hours. Patient willing and does assist with ensuring that he turns every so often Offload stump pressures with pillow Thank you for allowing me to participate in patient's care will follow with recommendations (3) Postoperative wound closure planning (4) Stump injury Assessment & Plan: s/p debridement by plastic surgery 12/11 wound vac placed today by myself 12/12 d/c planning plan for VAC upon discharge to SNF if decides he would like amputation will be available Findings: X-ray better demonstrates signs of recent surgery with surgical clips barbara at the site of a below the knee amputation. The cortical margin at the tibial stump appears intact both on x-ray and MRI. MRI examination does demonstrate bone marrow edema in the anterior inferior aspect of the tibial stump. Adjacent soft tissue swelling is present. Given recent surgery the soft tissue changes are expected. The bone marrow edema could be reactive marrow edema or due to osteomyelitis. Suspect the former. Similar signal alteration noted within the left tibial stump (left lower extremity partially imaged on this study on the transcoronal sequences). thank you (5) Infection of amputation stump, right lower extremity Assessment & Plan: much improved d/c planning cont vac on d/c Jaiden Teresa Dec 20, 2018 14:03
[2018-12-20 16:00] VITALS: BP 104/58
[2018-12-20 20:00] VITALS: BP 99/55
[2018-12-20] MEDS: Sennosides 8.6mg tab ORAL SCH (20:46)
[2018-12-20] MEDS: Dyna-Hex 2% Top Sol 2oz TOPIC SCH (20:46)
[2018-12-21] VITALS (7 sets, daily range): BP systolic 96–114; BP diastolic 56–73
--- NOTE | 2018-12-21 09:40 | Hematology/Onc Progress Note ---
Assessment/Plan Assessment/Plan IMPRESSION/RECS: # Anemia due to underlying iron deficiency, r/o gi bleed - also with multifactorial component --> anemia panel reviewed and noted with Iron def --> has been started on iv iron x 5 day course --> hgb transfuse if hgb lower than 7 --> hgb trend 10.6-->10.1-->9.9-->9.3-->10.7 --> HOLDING OFF LABS q3 days --> occult pending ++, dw pcp, outpatient w/u # Thrombocytopenia potentially due to meds --> plt trend 117-->148k # History of melanoma. --> currently in remission # Amputation stump infection, more in the right side. Appears likely osteo --> on cefepime/vanc--> leva/vanc x 34 d --> as per id recs --> surg, pod recs # Wound dehiscence of right amputation stump. --> eval with surg, pod # Hypothyroidism. --> started on synthroid # Dvt ppx scds Time of note does not necessarily correspond to when patient seen Greatly appreciate consultation. Subjective HEENT: Denies: no symptoms, eye pain, blurred vision, tearing, double vision, ear pain, ear discharge, nose pain, nose congestion, throat pain, throat swelling, mouth pain, mouth swelling, other Cardiovascular: Denies: no symptoms, chest pain, edema, irregular heart rate, lightheadedness, palpitations, syncope, other Respiratory: Denies: no symptoms, cough, shortness of breath, SOB with excertion, SOB at rest, sputum, wheezing, other Gastrointestinal/Abdominal: Denies: no symptoms, abdomen distended, abdominal pain, black stools, tarry stools, blood in stool, constipated, diarrhea, difficulty swallowing, nausea, poor appetite, poor fluid intake, rectal bleeding , vomiting, other Genitourinary: Denies: no symptoms, burning, discharge, frequency, flank pain, hematuria, incontinence, pain, urgency, other Neurologic/Psychiatric: Denies: no symptoms, anxiety, depressed, emotional problems, headache, numbness, paresthesia, pre-existing deficit, seizure, tingling, tremors, weakness, other Allergies: Coded Allergies: No Known Allergies (Unverified , 10/3/17) Subjective 12/09: no events, remains on abx, has been started on iv iron, hgb 9.9 12/11: s/p right leg wound debridement, cultures pending 12/12: vs stable, on abx, cultures noted, bleeding noted on dressing 12/13: no bleeding or chills, labs reviewed, no major night sweats 12/14: no events, no bleeding, wants to take off wound vac and take a shower, no f 12/15: no f/c, vs stable, no bleeding, no acute events, meds reviewed 12/17: leg pain, /, refusing labs currently, no f/c, no bleeding 12/18: no changes, no bleeding, wound better 12/19: refusing labs, pain less today, laying flat 12/20: complaining with rn has had too many blood draws 12/21: no bleeding, chills or night sweats, no major changes Objective Objective Current Medications Medications (Trade) Dose Ordered Sig/Trever Route PRN Reason Start Time Stop Time Status Last Admin Dose Admin Acetaminophen (Tylenol) 500 mg Q8H PRN ORAL Moderate Pain (Pain Scale 4-6) 12/05/18 23:15 01/04/19 23:14 Acetaminophen (Tylenol) 650 mg Q4H PRN ORAL Mild Pain/Temp > 100.5 12/05/18 23:15 01/04/19 23:14 Al Hydroxide/Mg Hydroxide (Mylanta II) 10 ml Q4H PRN ORAL indegestion 12/05/18 23:15 01/04/19 23:14 Bisacodyl (Dulcolax) 10 mg DAILYPRN PRN RECTAL Constipation 12/05/18 23:15 01/04/19 23:14 Chlorhexidine Gluconate (Sammie-Hex 2%) 1 applic DAILY@2000 TOPIC 12/06/18 20:00 01/05/19 19:59 12/20/18 20:46 Hydromorphone HCl (Dilaudid) 2 mg Q3H PRN IVP SEVERE PAIN 7-10 12/20/18 06:15 12/27/18 06:14 12/21/18 09:23 Levofloxacin (Levaquin) 250 mg DAILY ORAL 12/16/18 09:00 12/26/18 23:59 12/21/18 09:22 Levothyroxine Sodium (Synthroid) 200 mcg DAILY@0630 ORAL 12/06/18 06:30 01/05/19 06:29 12/21/18 06:23 Linezolid (Zyvox) 600 mg EVERY 12 HOURS ORAL 12/14/18 12:00 12/26/18 23:59 12/21/18 09:22 Magnesium Hydroxide (Mom) 30 ml DAILYPRN PRN ORAL Constipation 12/05/18 23:15 01/04/19 23:14 Pantoprazole (Protonix) 40 mg DAILY ORAL 12/06/18 09:00 01/05/19 08:59 12/11/18 10:00 Sennosides (Senokot) 17.2 mg BEDTIME ORAL 12/06/18 21:00 01/05/19 20:59 12/06/18 20:34 Sodium Chloride 1,000 ml @ 75 mls/hr [id number] IV 12/10/18 09:45 01/09/19 09:44 12/20/18 23:06 Temazepam (Restoril) 15 mg HSPRN PRN ORAL Insomnia 12/20/18 23:30 12/27/18 23:29 Temazepam (Restoril) 30 mg HSPRN PRN ORAL Insomnia 12/20/18 23:00 12/27/18 22:59 12/20/18 23:39 Last 24 Hour Vital Signs Date Time Temp Pulse Resp B/P (MAP) Pulse Ox O2 Delivery O2 Flow Rate FiO2 12/21/18 08:32 Room Air 12/21/18 08:00 98.0 7 18 96/58 (71) 96 83 12/21/18 04:00 98.1 78 20 103/56 (72) 95 12/21/18 00:00 98.3 88 20 111/73 (86) 95 12/20/18 21:00 Room Air 12/20/18 20:00 98.4 90 18 99/55 (70) 97 12/20/18 16:00 97.9 68 18 104/58 (73) 99 12/20/18 12:00 98.0 72 18 115/72 (86) 97 12/20/18 08:00 Room Air 12/20/18 08:00 97.8 70 18 107/60 (76) 100 12/20/18 04:00 97.9 68 18 104/58 (73) 99 12/20/18 00:00 97.9 65 18 119/54 (75) 95 12/19/18 21:00 Room Air 12/19/18 20:00 98.1 82 18 112/71 (85) 98 12/19/18 16:00 98.2 74 19 120/66 (84) 98 12/19/18 12:00 98.4 88 20 116/68 (84) 97 Intake and Output 12/20/18 12/21/18 19:00 07:00 Intake Total 825 ml 825 ml Output Total 300 ml Balance 825 ml 525 ml Intake Oral 300 ml IV Total 525 ml 825 ml Output Urine Total 300 ml # Voids 3 2 Labs Test 12/18/18 14:35 White Blood Count 6.6 K/UL (4.8-10.8) Red Blood Count 3.36 M/UL (4.70-6.10) Hemoglobin 10.7 G/DL (14.2-18.0) Hematocrit 32.5 % (42.0-52.0) Mean Corpuscular Volume 97 FL (80-99) Mean Corpuscular Hemoglobin 31.9 PG (27.0-31.0) Mean Corpuscular Hemoglobin Concent 33.0 G/DL (32.0-36.0) Red Cell Distribution Width 14.1 % (11.6-14.8) Platelet Count 148 K/UL (150-450) Mean Platelet Volume 6.9 FL (6.5-10.1) Neutrophils (%) (Auto) 65.2 % (45.0-75.0) Lymphocytes (%) (Auto) 26.8 % (20.0-45.0) Monocytes (%) (Auto) 3.5 % (1.0-10.0) Eosinophils (%) (Auto) 3.5 % (0.0-3.0) Basophils (%) (Auto) 1.0 % (0.0-2.0) Height (Feet): 5 Height (Inches): 0.00 Weight (Pounds): 149 Objective Gen: Nad Pulm: Ctab CV: rrr, no mgr Abd: soft, nt, nd Ext: b/l nka noted, dressings+ Kleynberg,Oseas L. MD Dec 21, 2018 09:40
--- NOTE | 2018-12-21 12:14 | General Progress Note ---
Assessment/Plan Problem List: (1) Leg pain ICD Codes: M79.606 - Leg pain SNOMED: 90587044 (2) Anemia ICD Codes: D64.9 - Anemia, unspecified SNOMED: 062117373 (3) Amputation stump infection ICD Codes: T87.40 - Infection of amputation stump, unspecified extremity SNOMED: 187274664 (4) Postoperative wound closure planning ICD Codes: Z48.1 - Encounter for planned postprocedural wound closure SNOMED: 495408168 (5) Stump injury ICD Codes: T14.8 - Other injury of unspecified body region SNOMED: 913340235 (6) Infection of amputation stump, right lower extremity ICD Codes: T87.43 - Infection of amputation stump, right lower extremity SNOMED: 628165122, 894154865 Status: stable, progressing Assessment/Plan: check labs no fever needs placement in snf I&d by dr duarte s/p wound dehiscence needs snf placement for wound care and iv abx Subjective ROS Limited/Unobtainable: Yes Allergies: Coded Allergies: No Known Allergies (Unverified , 01/04/17) Objective Last 24 Hour Vital Signs Date Time Temp Pulse Resp B/P (MAP) Pulse Ox O2 Delivery O2 Flow Rate FiO2 12/21/18 09:53 98.0 12/21/18 08:32 Room Air 12/21/18 08:00 98.0 7 18 96/58 (71) 96 83 12/21/18 04:00 98.1 78 20 103/56 (72) 95 12/21/18 00:00 98.3 88 20 111/73 (86) 95 12/20/18 21:00 Room Air 12/20/18 20:00 98.4 90 18 99/55 (70) 97 12/20/18 16:00 97.9 68 18 104/58 (73) 99 Intake and Output 12/20/18 12/21/18 19:00 07:00 Intake Total 825 ml 825 ml Output Total 300 ml Balance 825 ml 525 ml Intake Oral 300 ml IV Total 525 ml 825 ml Output Urine Total 300 ml # Voids 3 2 Height (Feet): 5 Height (Inches): 0.00 Weight (Pounds): 149 General Appearance: lethargic EENT: PERRL/EOMI Cardiovascular: normal rate Respiratory/Chest: lungs clear Abdomen: soft Rossy Samuel MD Dec 21, 2018 12:14
--- NOTE | 2018-12-21 13:20 | Infectious Diseases Prog Note ---
Assessment/Plan Assessment/Plan IMPRESSION: 1. Amputation stump infection, more in the right side. - cultures; MRSA, Enterococcus ( VRE & Proteus - bone biopsy, like acute osteomyelitis 2 wound dehiscence of right amputation stump. 3. Anemia. 4. Hypothyroidism. 5. History of melanoma. 6. thrombocytopenia due to Zyvox RECOMMENDATIONS: 1. We will continue with Levaquin & PO Zyvox X 26 days 2. Waiting for placement 3. F/U CBC weekly Subjective ROS Limited/Unobtainable: Yes Constitutional: Denies: fever Allergies: Coded Allergies: No Known Allergies (Unverified , 01/04/17) Objective Vital Signs Last 24 Hour Vital Signs Date Time Temp Pulse Resp B/P (MAP) Pulse Ox O2 Delivery O2 Flow Rate FiO2 12/21/18 13:05 98.5 12/21/18 12:00 98.5 78 18 110/63 (79) 96 12/21/18 08:32 Room Air 12/21/18 08:00 98.0 7 18 96/58 (71) 96 83 12/21/18 04:00 98.1 78 20 103/56 (72) 95 12/21/18 00:00 98.3 88 20 111/73 (86) 95 12/20/18 21:00 Room Air 12/20/18 20:00 98.4 90 18 99/55 (70) 97 12/20/18 16:00 97.9 68 18 104/58 (73) 99 Height (Feet): 5 Height (Inches): 0.00 Weight (Pounds): 149 General Appearance: no acute distress HEENT: mucous membranes moist Respiratory/Chest: lungs clear Cardiovascular: normal rate, other - PICC line Abdomen: soft, non tender Extremities: no edema, other - bilateral BKA Skin: ulcers Neurologic/Psychiatric: other - sleeping Current Medications Medications (Trade) Dose Ordered Sig/Trever Route PRN Reason Start Time Stop Time Status Last Admin Dose Admin Acetaminophen (Tylenol) 500 mg Q8H PRN ORAL Moderate Pain (Pain Scale 4-6) 12/05/18 23:15 01/04/19 23:14 Acetaminophen (Tylenol) 650 mg Q4H PRN ORAL Mild Pain/Temp > 100.5 12/05/18 23:15 01/04/19 23:14 Al Hydroxide/Mg Hydroxide (Mylanta II) 10 ml Q4H PRN ORAL indegestion 12/05/18 23:15 01/04/19 23:14 Bisacodyl (Dulcolax) 10 mg DAILYPRN PRN RECTAL Constipation 12/05/18 23:15 01/04/19 23:14 Chlorhexidine Gluconate (Sammie-Hex 2%) 1 applic DAILY@2000 TOPIC 12/06/18 20:00 01/05/19 19:59 12/20/18 20:46 Hydromorphone HCl (Dilaudid) 2 mg Q3H PRN IVP SEVERE PAIN 7-10 12/20/18 06:15 12/27/18 06:14 12/21/18 12:25 Levofloxacin (Levaquin) 250 mg DAILY ORAL 12/16/18 09:00 12/26/18 23:59 12/21/18 09:22 Levothyroxine Sodium (Synthroid) 200 mcg DAILY@0630 ORAL 12/06/18 06:30 01/05/19 06:29 12/21/18 06:23 Linezolid (Zyvox) 600 mg EVERY 12 HOURS ORAL 12/14/18 12:00 12/26/18 23:59 12/21/18 09:22 Magnesium Hydroxide (Mom) 30 ml DAILYPRN PRN ORAL Constipation 12/05/18 23:15 01/04/19 23:14 Pantoprazole (Protonix) 40 mg DAILY ORAL 12/06/18 09:00 01/05/19 08:59 12/11/18 10:00 Sennosides (Senokot) 17.2 mg BEDTIME ORAL 12/06/18 21:00 01/05/19 20:59 12/06/18 20:34 Sodium Chloride 1,000 ml @ 75 mls/hr [id number] IV 12/10/18 09:45 01/09/19 09:44 12/21/18 12:25 Temazepam (Restoril) 15 mg HSPRN PRN ORAL Insomnia 12/20/18 23:30 12/27/18 23:29 Temazepam (Restoril) 30 mg HSPRN PRN ORAL Insomnia 12/20/18 23:00 12/27/18 22:59 12/20/18 23:39 Partha Obrien MD Dec 21, 2018 13:20
[2018-12-21] MEDS ORDERED: ZYVOX600 MG ORAL (13:23)
--- NOTE | 2018-12-21 17:54 | Surgery Progress Note ---
Surgery Progress Note Subjective Symptoms: improved, tolerating diet, voiding well, passing flatus, pain decreased Objective Last 24 Hour Vital Signs Date Time Temp Pulse Resp B/P (MAP) Pulse Ox O2 Delivery O2 Flow Rate FiO2 12/21/18 15:55 98.5 12/21/18 12:00 98.5 78 18 110/63 (79) 96 12/21/18 08:32 Room Air 12/21/18 08:00 98.0 7 18 96/58 (71) 96 83 12/21/18 04:00 98.1 78 20 103/56 (72) 95 12/21/18 00:00 98.3 88 20 111/73 (86) 95 12/20/18 21:00 Room Air 12/20/18 20:00 98.4 90 18 99/55 (70) 97 I&O Intake and Output 12/20/18 12/21/18 19:00 07:00 Intake Total 825 ml 825 ml Output Total 300 ml Balance 825 ml 525 ml Intake Oral 300 ml IV Total 525 ml 825 ml Output Urine Total 300 ml # Voids 3 2 Dressing: dry Wound: clean Drains: wound vac Cardiovascular: RSR Respiratory: clear Abdomen: soft, present bowel sounds, non-distended Extremities: no edema, no tenderness, no cyanosis, other Plan Problems: (1) Amputation stump infection Assessment & Plan: bilateral lower extremity below-knee amputations. On the right side the recent revision flap has dehisced and serous purulent drainage identified with viable sutures and palpable bone. On the left side the flap is intact on the medial aspect there is drainage coming from the wound bed in between the barbara. There is an opening on the lateral aspect approximately 2 cm x 2 cm with unknown depth given its location. We will currently continue with localized wound care as I discussed with the operating orthopedic surgeon about potential management. I discussed with the patient the current findings and the potential necessity for reoperation versus ray amputation. Versus potential salvage. Continue with IV antibiotics s/p debridement by plastic surgery 12/11 wound vac placed today by myself 12/12 d/c planning With follow with local wound care and evaluation We will discuss with orthopedic and medical team Thank you for allowing participate patient's care (2) Sacral decubitus ulcer Assessment & Plan: This is a 88-year-old male with multiple small full- thickness sacral decubitus ulcers. Patient states that he formed because he was laying flat for 15 days at an outside facility. Identified upon admission and initiated care plan. Periwound seems to have prior healing areas as well as acute inflamed areas with full-thickness breakdown approximately 1 cm x 1 cm on the left buttock/sacral cleft and similarly on the right as well. No active drainage. No foul order. Pt presented on admission with keloid scar with hyperpigmentation sacrum from previous pressure injury;confirmed by pt. Dry loose skin noted to R and L sacrum. No open areas noted. Pt denied tenderness when site palpated. Pt resistive to being repositioned on his sides and was educated of potential risks for already compromised skin to breakdown . Pt demonstrated ability to reposition self when cued.Demonstrated to pt on how to utilize side rails to off -lift buttocks and shift weight in bed. Skin lesions noted to R and L scalp. Pt verbalized he has skin cancer and lesions were recently removed. Hypergranular skin lesions also noted to Lateral L thigh. Apply Moisture Barrier Paste to Sacrum. Cover with Optifoam drsg. Change every 3 days and prn. Encourage and assist with repositioning at least every 2hours or as tolerated.Elevate BKA stumps on pillow. Turn every 2 hours. Patient willing and does assist with ensuring that he turns every so often Offload stump pressures with pillow Thank you for allowing me to participate in patient's care will follow with recommendations (3) Postoperative wound closure planning (4) Stump injury Assessment & Plan: s/p debridement by plastic surgery 12/11 wound vac placed today by myself 12/12 d/c planning plan for VAC upon discharge to SNF if decides he would like amputation will be available Findings: X-ray better demonstrates signs of recent surgery with surgical clips barbara at the site of a below the knee amputation. The cortical margin at the tibial stump appears intact both on x-ray and MRI. MRI examination does demonstrate bone marrow edema in the anterior inferior aspect of the tibial stump. Adjacent soft tissue swelling is present. Given recent surgery the soft tissue changes are expected. The bone marrow edema could be reactive marrow edema or due to osteomyelitis. Suspect the former. Similar signal alteration noted within the left tibial stump (left lower extremity partially imaged on this study on the transcoronal sequences). thank you (5) Infection of amputation stump, right lower extremity Assessment & Plan: much improved d/c planning cont vac on d/c Jaiden Teresa Dec 21, 2018 17:54
[2018-12-21] MEDS: Dyna-Hex 2% Top Sol 2oz TOPIC SCH (20:00)
[2018-12-21] MEDS: Sennosides 8.6mg tab ORAL SCH (21:04)
[2018-12-22 04:00] VITALS: BP 116/74
--- NOTE | 2018-12-22 06:04 | Hematology/Onc Progress Note ---
Assessment/Plan Assessment/Plan IMPRESSION/RECS: # Anemia due to underlying iron deficiency, r/o gi bleed - also with multifactorial component --> anemia panel reviewed and noted with Iron def --> has been started on iv iron x 5 day course --> hgb transfuse if hgb lower than 7 --> hgb trend 10.6-->10.1-->9.9-->9.3-->10.7 --> HOLDING OFF LABS q3 days --> occult pending ++, dw pcp, outpatient w/u # Thrombocytopenia potentially due to meds --> plt trend 117-->148k # History of melanoma. --> currently in remission # Amputation stump infection, more in the right side. Appears likely osteo --> on cefepime/vanc--> leva/vanc x 34 d --> as per id recs --> surg, pod recs # Wound dehiscence of right amputation stump. --> eval with surg, pod # Hypothyroidism. --> started on synthroid # Dvt ppx scds Time of note does not necessarily correspond to when patient seen Greatly appreciate consultation. Subjective Constitutional: Denies: no symptoms, chills, fever, malaise, weakness, other HEENT: Denies: no symptoms, eye pain, blurred vision, tearing, double vision, ear pain, ear discharge, nose pain, nose congestion, throat pain, throat swelling, mouth pain, mouth swelling, other Cardiovascular: Denies: no symptoms, chest pain, edema, irregular heart rate, lightheadedness, palpitations, syncope, other Respiratory: Denies: no symptoms, cough, shortness of breath, SOB with excertion, SOB at rest, sputum, wheezing, other Genitourinary: Denies: no symptoms, burning, discharge, frequency, flank pain, hematuria, incontinence, pain, urgency, other Neurologic/Psychiatric: Denies: no symptoms, anxiety, depressed, emotional problems, headache, numbness, paresthesia, pre-existing deficit, seizure, tingling, tremors, weakness, other Allergies: Coded Allergies: No Known Allergies (Unverified , 01/04/17) Subjective 12/09: no events, remains on abx, has been started on iv iron, hgb 9.9 12/11: s/p right leg wound debridement, cultures pending 12/12: vs stable, on abx, cultures noted, bleeding noted on dressing 12/13: no bleeding or chills, labs reviewed, no major night sweats 12/14: no events, no bleeding, wants to take off wound vac and take a shower, no f 12/15: no f/c, vs stable, no bleeding, no acute events, meds reviewed 12/17: leg pain, 06/11, refusing labs currently, no f/c, no bleeding 12/18: no changes, no bleeding, wound better 12/19: refusing labs, pain less today, laying flat 12/20: complaining with rn has had too many blood draws 12/21: no bleeding, chills or night sweats, no major changes 12/22: complaining of some pain, does not want any further lab draws Objective Objective Current Medications Medications (Trade) Dose Ordered Sig/Trever Route PRN Reason Start Time Stop Time Status Last Admin Dose Admin Acetaminophen (Tylenol) 500 mg Q8H PRN ORAL Moderate Pain (Pain Scale 4-6) 12/05/18 23:15 01/04/19 23:14 Acetaminophen (Tylenol) 650 mg Q4H PRN ORAL Mild Pain/Temp > 100.5 12/05/18 23:15 01/04/19 23:14 Al Hydroxide/Mg Hydroxide (Mylanta II) 10 ml Q4H PRN ORAL indegestion 12/05/18 23:15 01/04/19 23:14 Bisacodyl (Dulcolax) 10 mg DAILYPRN PRN RECTAL Constipation 12/05/18 23:15 01/04/19 23:14 Chlorhexidine Gluconate (Sammie-Hex 2%) 1 applic DAILY@1999 TOPIC 12/06/18 20:00 01/05/19 19:59 12/20/18 20:46 Hydromorphone HCl (Dilaudid) 2 mg Q3H PRN IVP SEVERE PAIN 7-10 12/20/18 06:15 12/27/18 06:14 12/22/18 04:23 Levofloxacin (Levaquin) 250 mg DAILY ORAL 12/16/18 09:00 12/26/18 23:59 12/21/18 09:22 Levothyroxine Sodium (Synthroid) 200 mcg DAILY@0630 ORAL 12/06/18 06:30 01/05/19 06:29 12/21/18 06:23 Linezolid (Zyvox) 600 mg EVERY 12 HOURS ORAL 12/14/18 12:00 12/26/18 23:59 12/21/18 21:04 Magnesium Hydroxide (Mom) 30 ml DAILYPRN PRN ORAL Constipation 12/05/18 23:15 01/04/19 23:14 Pantoprazole (Protonix) 40 mg DAILY ORAL 12/06/18 09:00 01/05/19 08:59 12/11/18 10:00 Sennosides (Senokot) 17.2 mg BEDTIME ORAL 12/06/18 21:00 01/05/19 20:59 12/21/18 21:04 Sodium Chloride 1,000 ml @ 75 mls/hr [id number] IV 12/10/18 09:45 01/09/19 09:44 12/22/18 00:59 Temazepam (Restoril) 15 mg HSPRN PRN ORAL Insomnia 12/20/18 23:30 12/27/18 23:29 12/21/18 23:51 Temazepam (Restoril) 30 mg HSPRN PRN ORAL Insomnia 12/20/18 23:00 12/27/18 22:59 12/21/18 21:04 Last 24 Hour Vital Signs Date Time Temp Pulse Resp B/P (MAP) Pulse Ox O2 Delivery O2 Flow Rate FiO2 12/22/18 04:00 98.0 72 18 116/74 (88) 98 12/21/18 23:54 98.9 78 20 101/60 (74) 98 12/21/18 20:42 Room Air 12/21/18 20:00 98.6 81 18 103/59 (74) 96 12/21/18 18:58 98.8 12/21/18 16:00 98.8 81 18 114/64 (81) 96 12/21/18 12:00 98.5 78 18 110/63 (79) 96 12/21/18 08:32 Room Air 12/21/18 08:00 98.0 7 18 96/58 (71) 96 83 12/21/18 04:00 98.1 78 20 103/56 (72) 95 9/19/19 00:00 98.3 88 20 111/73 (86) 95 12/20/18 21:00 Room Air 12/20/18 20:00 98.4 90 18 99/55 (70) 97 12/20/18 16:00 97.9 68 18 104/58 (73) 99 12/20/18 12:00 98.0 72 18 115/72 (86) 97 12/20/18 08:00 Room Air 12/20/18 08:00 97.8 70 18 107/60 (76) 100 Intake and Output 12/21/18 12/22/18 18:59 06:59 Intake Total 1235 ml 675 ml Output Total 800 ml 700 ml Balance 435 ml -25 ml Intake Oral 1160 ml IV Total 75 ml 675 ml Output Urine Total 800 ml 700 ml # Voids 4 Height (Feet): 5 Height (Inches): 0.00 Weight (Pounds): 149 Objective Gen: Nad Pulm: Ctab CV: rrr, no mgr Abd: soft, nt, nd Ext: b/l nka noted, dressings+ Oseas Tong MD Dec 22, 2018 06:04
[2018-12-22 08:00] VITALS: BP 99/63
--- NOTE | 2018-12-22 10:35 | Surgery Progress Note ---
Surgery Progress Note Subjective Symptoms: improved, tolerating diet, voiding well, passing flatus, pain decreased Additional Comments vac change today otherwise pending d/c Objective Last 24 Hour Vital Signs Date Time Temp Pulse Resp B/P (MAP) Pulse Ox O2 Delivery O2 Flow Rate FiO2 12/22/18 09:00 Room Air 12/22/18 08:00 98.1 83 20 99/63 (75) 96 12/22/18 04:00 98.0 72 18 116/74 (88) 98 12/21/18 23:54 98.9 78 20 101/60 (74) 98 12/21/18 20:42 Room Air 12/21/18 20:00 98.6 81 18 103/59 (74) 96 12/21/18 18:58 98.8 12/21/18 16:00 98.8 81 18 114/64 (81) 96 12/21/18 12:00 98.5 78 18 110/63 (79) 96 I&O Intake and Output 12/21/18 12/22/18 19:00 07:00 Intake Total 1310 ml 600 ml Output Total 800 ml 700 ml Balance 510 ml -100 ml Intake Oral 1160 ml IV Total 150 ml 600 ml Output Urine Total 800 ml 700 ml # Voids 4 Dressing: dry Wound: clean Drains: wound vac Cardiovascular: RSR Respiratory: clear Abdomen: soft, non-tender, present bowel sounds Extremities: edema, tenderness, no cyanosis Plan Problems: (1) Amputation stump infection Assessment & Plan: bilateral lower extremity below-knee amputations. On the right side the recent revision flap has dehisced and serous purulent drainage identified with viable sutures and palpable bone. On the left side the flap is intact on the medial aspect there is drainage coming from the wound bed in between the barbara. There is an opening on the lateral aspect approximately 2 cm x 2 cm with unknown depth given its location. We will currently continue with localized wound care as I discussed with the operating orthopedic surgeon about potential management. I discussed with the patient the current findings and the potential necessity for reoperation versus ray amputation. Versus potential salvage. Continue with IV antibiotics s/p debridement by plastic surgery 12/11 wound vac placed today by myself 12/12 d/c planning With follow with local wound care and evaluation We will discuss with orthopedic and medical team Thank you for allowing participate patient's care (2) Sacral decubitus ulcer Assessment & Plan: This is a 88-year-old male with multiple small full- thickness sacral decubitus ulcers. Patient states that he formed because he was laying flat for 15 days at an outside facility. Identified upon admission and initiated care plan. Periwound seems to have prior healing areas as well as acute inflamed areas with full-thickness breakdown approximately 1 cm x 1 cm on the left buttock/sacral cleft and similarly on the right as well. No active drainage. No foul order. Pt presented on admission with keloid scar with hyperpigmentation sacrum from previous pressure injury;confirmed by pt. Dry loose skin noted to R and L sacrum. No open areas noted. Pt denied tenderness when site palpated. Pt resistive to being repositioned on his sides and was educated of potential risks for already compromised skin to breakdown . Pt demonstrated ability to reposition self when cued.Demonstrated to pt on how to utilize side rails to off -lift buttocks and shift weight in bed. Skin lesions noted to R and L scalp. Pt verbalized he has skin cancer and lesions were recently removed. Hypergranular skin lesions also noted to Lateral L thigh. Apply Moisture Barrier Paste to Sacrum. Cover with Optifoam drsg. Change every 3 days and prn. Encourage and assist with repositioning at least every 2hours or as tolerated.Elevate BKA stumps on pillow. Turn every 2 hours. Patient willing and does assist with ensuring that he turns every so often Offload stump pressures with pillow Thank you for allowing me to participate in patient's care will follow with recommendations (3) Postoperative wound closure planning (4) Stump injury Assessment & Plan: s/p debridement by plastic surgery 12/11 wound vac placed today by myself 12/12 d/c planning plan for VAC upon discharge to SNF if decides he would like amputation will be available Findings: X-ray better demonstrates signs of recent surgery with surgical clips barbara at the site of a below the knee amputation. The cortical margin at the tibial stump appears intact both on x-ray and MRI. MRI examination does demonstrate bone marrow edema in the anterior inferior aspect of the tibial stump. Adjacent soft tissue swelling is present. Given recent surgery the soft tissue changes are expected. The bone marrow edema could be reactive marrow edema or due to osteomyelitis. Suspect the former. Similar signal alteration noted within the left tibial stump (left lower extremity partially imaged on this study on the transcoronal sequences). thank you (5) Infection of amputation stump, right lower extremity Assessment & Plan: much improved d/c planning cont vac on d/c Jaiden Teresa Dec 22, 2018 10:35
[2018-12-22 12:00] VITALS: BP 131/76
--- NOTE | 2018-12-22 12:15 | Infectious Diseases Prog Note ---
Assessment/Plan Assessment/Plan IMPRESSION: 1. Amputation stump infection, more in the right side. - cultures; MRSA, Enterococcus ( VRE & Proteus - bone biopsy, like acute osteomyelitis 2 wound dehiscence of right amputation stump. 3. Anemia. 4. Hypothyroidism. 5. History of melanoma. 6. thrombocytopenia due to Zyvox RECOMMENDATIONS: 1. We will continue with Levaquin & PO Zyvox X 25 days 2. Waiting for placement 3. F/U CBC weekly Subjective ROS Limited/Unobtainable: No Constitutional: Reports: no symptoms Respiratory: Reports: no symptoms Gastrointestinal/Abdominal: Reports: no symptoms Musculoskeletal: Reports: pain, other - controlled Allergies: Coded Allergies: No Known Allergies (Unverified , 01/04/17) Objective Vital Signs Last 24 Hour Vital Signs Date Time Temp Pulse Resp B/P (MAP) Pulse Ox O2 Delivery O2 Flow Rate FiO2 12/22/18 12:00 98.6 81 20 131/76 (94) 96 12/22/18 09:00 Room Air 12/22/18 08:00 98.1 83 20 99/63 (75) 96 12/22/18 04:00 98.0 72 18 116/74 (88) 98 12/21/18 23:54 98.9 78 20 101/60 (74) 98 12/21/18 20:42 Room Air 12/21/18 20:00 98.6 81 18 103/59 (74) 96 12/21/18 18:58 98.8 12/21/18 16:00 98.8 81 18 114/64 (81) 96 Height (Feet): 5 Height (Inches): 0.00 Weight (Pounds): 149 General Appearance: no acute distress HEENT: mucous membranes moist Respiratory/Chest: lungs clear Cardiovascular: normal rate, other - PICC line Abdomen: soft, non tender Extremities: other - Bilateral BKA Skin: ulcers, other - woud-vac in R stump Neurologic/Psychiatric: alert, oriented x 3, responsive Current Medications Medications (Trade) Dose Ordered Sig/Trever Route PRN Reason Start Time Stop Time Status Last Admin Dose Admin Acetaminophen (Tylenol) 500 mg Q8H PRN ORAL Moderate Pain (Pain Scale 4-6) 12/05/18 23:15 01/04/19 23:14 Acetaminophen (Tylenol) 650 mg Q4H PRN ORAL Mild Pain/Temp > 100.5 12/05/18 23:15 01/04/19 23:14 Al Hydroxide/Mg Hydroxide (Mylanta II) 10 ml Q4H PRN ORAL indegestion 12/05/18 23:15 01/04/19 23:14 Bisacodyl (Dulcolax) 10 mg DAILYPRN PRN RECTAL Constipation 12/05/18 23:15 01/04/19 23:14 Chlorhexidine Gluconate (Sammie-Hex 2%) 1 applic DAILY@2000 TOPIC 12/06/18 20:00 01/05/19 19:59 12/20/18 20:46 Hydromorphone HCl (Dilaudid) 2 mg Q3H PRN IVP SEVERE PAIN 7-10 12/20/18 06:15 12/27/18 06:14 12/22/18 10:49 Levofloxacin (Levaquin) 250 mg DAILY ORAL 12/16/18 09:00 12/26/18 23:59 12/22/18 08:09 Levothyroxine Sodium (Synthroid) 200 mcg DAILY@0630 ORAL 12/06/18 06:30 01/05/19 06:29 12/22/18 06:16 Linezolid (Zyvox) 600 mg EVERY 12 HOURS ORAL 12/14/18 12:00 12/26/18 23:59 12/22/18 08:09 Magnesium Hydroxide (Mom) 30 ml DAILYPRN PRN ORAL Constipation 12/05/18 23:15 01/04/19 23:14 Pantoprazole (Protonix) 40 mg DAILY ORAL 12/06/18 09:00 01/05/19 08:59 12/11/18 10:00 Sennosides (Senokot) 17.2 mg BEDTIME ORAL 12/06/18 21:00 01/05/19 20:59 12/21/18 21:04 Sodium Chloride 1,000 ml @ 75 mls/hr [id number] IV 12/10/18 09:45 01/09/19 09:44 12/22/18 00:59 Temazepam (Restoril) 15 mg HSPRN PRN ORAL Insomnia 12/20/18 23:30 12/27/18 23:29 12/21/18 23:51 Temazepam (Restoril) 30 mg HSPRN PRN ORAL Insomnia 12/20/18 23:00 12/27/18 22:59 12/21/18 21:04 Partha Obrien MD Dec 22, 2018 12:15
[2018-12-22 16:00] VITALS: BP 120/67
[2018-12-22 20:00] VITALS: BP 102/58
[2018-12-22] MEDS: Sennosides 8.6mg tab ORAL SCH ×2 (20:43→20:48)
[2018-12-22] MEDS: Dyna-Hex 2% Top Sol 2oz TOPIC SCH (20:43)
--- NOTE | 2018-12-22 21:12 | General Progress Note ---
Assessment/Plan Problem List: (1) Leg pain ICD Codes: M79.606 - Leg pain SNOMED: 82602399 (2) Anemia ICD Codes: D64.9 - Anemia, unspecified SNOMED: 263891818 (3) Amputation stump infection ICD Codes: T87.40 - Infection of amputation stump, unspecified extremity SNOMED: 513293867 (4) Postoperative wound closure planning ICD Codes: Z48.1 - Encounter for planned postprocedural wound closure SNOMED: 159822858 (5) Stump injury ICD Codes: T14.8 - Other injury of unspecified body region SNOMED: 245029182 (6) Infection of amputation stump, right lower extremity ICD Codes: T87.43 - Infection of amputation stump, right lower extremity SNOMED: 173197693, 205183918 Status: stable, progressing Assessment/Plan: anemia afebrile reviewed chart needs placement in snf I&d by dr duarte s/p wound dehiscence needs snf placement for wound care and iv abx Subjective ROS Limited/Unobtainable: Yes Allergies: Coded Allergies: No Known Allergies (Unverified , 01/04/17) Objective Last 24 Hour Vital Signs Date Time Temp Pulse Resp B/P (MAP) Pulse Ox O2 Delivery O2 Flow Rate FiO2 12/22/18 20:00 98.9 85 18 102/58 (73) 96 12/22/18 16:00 98.8 75 20 120/67 (84) 96 12/22/18 12:00 98.6 81 20 131/76 (94) 96 12/22/18 09:00 Room Air 12/22/18 08:00 98.1 83 20 99/63 (75) 96 12/22/18 04:00 98.0 72 18 116/74 (88) 98 12/21/18 23:54 98.9 78 20 101/60 (74) 98 Intake and Output 12/21/18 12/22/18 19:00 07:00 Intake Total 1310 ml 825 ml Output Total 800 ml 700 ml Balance 510 ml 125 ml Intake Oral 1160 ml IV Total 150 ml 825 ml Output Urine Total 800 ml 700 ml # Voids 4 Height (Feet): 5 Height (Inches): 0.00 Weight (Pounds): 149 Cardiovascular: normal rate Respiratory/Chest: lungs clear Abdomen: soft Rossy Samuel MD Dec 22, 2018 21:12
[2018-12-23] VITALS: BP 112/63
[2018-12-23 04:00] VITALS: BP 106/68
[2018-12-23 08:00] VITALS: BP 96/59
--- NOTE | 2018-12-23 08:46 | Surgery Progress Note ---
Surgery Progress Note Subjective Symptoms: improved, tolerating diet, voiding well, passing flatus Objective Last 24 Hour Vital Signs Date Time Temp Pulse Resp B/P (MAP) Pulse Ox O2 Delivery O2 Flow Rate FiO2 12/23/18 04:00 96.9 70 18 106/68 (81) 97 12/23/18 00:00 97.5 78 18 112/63 (79) 96 12/22/18 21:00 Room Air 12/22/18 20:00 98.9 85 18 102/58 (73) 96 12/22/18 16:00 98.8 75 20 120/67 (84) 96 12/22/18 12:00 98.6 81 20 131/76 (94) 96 12/22/18 09:00 Room Air I&O Intake and Output 12/22/18 12/23/18 18:59 06:59 Intake Total 1410 ml 75 ml Output Total 500 ml 1000 ml Balance 910 ml -925 ml Intake Oral 360 ml IV Total 1050 ml 75 ml Output Urine Total 500 ml 1000 ml # Voids 2 3 Dressing: dry Wound: clean Drains: wound vac Cardiovascular: RSR Respiratory: clear Abdomen: soft, non-tender, present bowel sounds Extremities: other Plan Problems: (1) Amputation stump infection Assessment & Plan: bilateral lower extremity below-knee amputations. On the right side the recent revision flap has dehisced and serous purulent drainage identified with viable sutures and palpable bone. On the left side the flap is intact on the medial aspect there is drainage coming from the wound bed in between the barbara. There is an opening on the lateral aspect approximately 2 cm x 2 cm with unknown depth given its location. We will currently continue with localized wound care as I discussed with the operating orthopedic surgeon about potential management. I discussed with the patient the current findings and the potential necessity for reoperation versus ray amputation. Versus potential salvage. Continue with IV antibiotics s/p debridement by plastic surgery 12/11 wound vac placed today by myself 12/12 d/c planning With follow with local wound care and evaluation We will discuss with orthopedic and medical team Thank you for allowing participate patient's care (2) Sacral decubitus ulcer Assessment & Plan: This is a 88-year-old male with multiple small full- thickness sacral decubitus ulcers. Patient states that he formed because he was laying flat for 15 days at an outside facility. Identified upon admission and initiated care plan. Periwound seems to have prior healing areas as well as acute inflamed areas with full-thickness breakdown approximately 1 cm x 1 cm on the left buttock/sacral cleft and similarly on the right as well. No active drainage. No foul order. Pt presented on admission with keloid scar with hyperpigmentation sacrum from previous pressure injury;confirmed by pt. Dry loose skin noted to R and L sacrum. No open areas noted. Pt denied tenderness when site palpated. Pt resistive to being repositioned on his sides and was educated of potential risks for already compromised skin to breakdown . Pt demonstrated ability to reposition self when cued.Demonstrated to pt on how to utilize side rails to off -lift buttocks and shift weight in bed. Skin lesions noted to R and L scalp. Pt verbalized he has skin cancer and lesions were recently removed. Hypergranular skin lesions also noted to Lateral L thigh. Apply Moisture Barrier Paste to Sacrum. Cover with Optifoam drsg. Change every 3 days and prn. Encourage and assist with repositioning at least every 2hours or as tolerated.Elevate BKA stumps on pillow. Turn every 2 hours. Patient willing and does assist with ensuring that he turns every so often Offload stump pressures with pillow Thank you for allowing me to participate in patient's care will follow with recommendations (3) Postoperative wound closure planning (4) Stump injury Assessment & Plan: s/p debridement by plastic surgery 12/11 wound vac placed today by myself 12/12 d/c planning plan for VAC upon discharge to SNF if decides he would like amputation will be available Findings: X-ray better demonstrates signs of recent surgery with surgical clips barbara at the site of a below the knee amputation. The cortical margin at the tibial stump appears intact both on x-ray and MRI. MRI examination does demonstrate bone marrow edema in the anterior inferior aspect of the tibial stump. Adjacent soft tissue swelling is present. Given recent surgery the soft tissue changes are expected. The bone marrow edema could be reactive marrow edema or due to osteomyelitis. Suspect the former. Similar signal alteration noted within the left tibial stump (left lower extremity partially imaged on this study on the transcoronal sequences). thank you (5) Infection of amputation stump, right lower extremity Assessment & Plan: much improved d/c planning cont vac on d/c Jaiden Teresa Dec 23, 2018 08:46
--- NOTE | 2018-12-23 12:38 | Hematology/Onc Progress Note ---
Assessment/Plan Assessment/Plan IMPRESSION/RECS: # Anemia due to underlying iron deficiency, r/o gi bleed - also with multifactorial component --> anemia panel reviewed and noted with Iron def --> has been started on iv iron x 5 day course --> hgb transfuse if hgb lower than 7 --> hgb trend 10.6-->10.1-->9.9-->9.3-->10.7 --> HOLDING OFF LABS q3 days --> occult pending ++, dw pcp, outpatient w/u # Thrombocytopenia potentially due to meds --> plt trend 117-->148k # History of melanoma. --> currently in remission # Amputation stump infection, more in the right side. Appears likely osteo --> on cefepime/vanc--> leva/vanc x 34 d --> as per id recs --> surg, pod recs # Wound dehiscence of right amputation stump. --> eval with surg, pod # Hypothyroidism. --> started on synthroid # Dvt ppx scds Time of note does not necessarily correspond to when patient seen Greatly appreciate consultation. Subjective Constitutional: Denies: no symptoms, chills, fever, malaise, weakness, other Cardiovascular: Denies: no symptoms, chest pain, edema, irregular heart rate, lightheadedness, palpitations, syncope, other Respiratory: Denies: no symptoms, cough, shortness of breath, SOB with excertion, SOB at rest, sputum, wheezing, other Gastrointestinal/Abdominal: Denies: no symptoms, abdomen distended, abdominal pain, black stools, tarry stools, blood in stool, constipated, diarrhea, difficulty swallowing, nausea, poor appetite, poor fluid intake, rectal bleeding , vomiting, other Genitourinary: Denies: no symptoms, burning, discharge, frequency, flank pain, hematuria, incontinence, pain, urgency, other Neurologic/Psychiatric: Denies: no symptoms, anxiety, depressed, emotional problems, headache, numbness, paresthesia, pre-existing deficit, seizure, tingling, tremors, weakness, other Endocrine: Denies: no symptoms, excessive sweating, flushing, intolerance to cold, intolerance to heat, increased hunger, increased thirst, increased urine, unexplained weight gain, unexplained weight loss, other Allergies: Coded Allergies: No Known Allergies (Unverified , 01/04/17) Subjective 12/09: no events, remains on abx, has been started on iv iron, hgb 9.9 12/11: s/p right leg wound debridement, cultures pending 12/12: vs stable, on abx, cultures noted, bleeding noted on dressing 12/13: no bleeding or chills, labs reviewed, no major night sweats 12/14: no events, no bleeding, wants to take off wound vac and take a shower, no f 12/15: no f/c, vs stable, no bleeding, no acute events, meds reviewed 12/17: leg pain, 06/11, refusing labs currently, no f/c, no bleeding 12/18: no changes, no bleeding, wound better 12/19: refusing labs, pain less today, laying flat 12/20: complaining with rn has had too many blood draws 12/21: no bleeding, chills or night sweats, no major changes 12/22: complaining of some pain, does not want any further lab draws 12/23: no bleeding, no night sweats, no major changes, right stump pain Objective Objective Current Medications Medications (Trade) Dose Ordered Sig/Trever Route PRN Reason Start Time Stop Time Status Last Admin Dose Admin Acetaminophen (Tylenol) 500 mg Q8H PRN ORAL Moderate Pain (Pain Scale 4-6) 12/05/18 23:15 01/04/19 23:14 Acetaminophen (Tylenol) 650 mg Q4H PRN ORAL Mild Pain/Temp > 100.5 12/05/18 23:15 01/04/19 23:14 Al Hydroxide/Mg Hydroxide (Mylanta II) 10 ml Q4H PRN ORAL indegestion 12/05/18 23:15 01/04/19 23:14 Bisacodyl (Dulcolax) 10 mg DAILYPRN PRN RECTAL Constipation 12/05/18 23:15 01/04/19 23:14 Chlorhexidine Gluconate (Sammie-Hex 2%) 1 applic DAILY@1999 TOPIC 12/06/18 20:00 01/05/19 19:59 12/22/18 20:43 Hydromorphone HCl (Dilaudid) 2 mg Q3H PRN IVP SEVERE PAIN 7-10 12/20/18 06:15 12/27/18 06:14 12/23/18 11:05 Levofloxacin (Levaquin) 250 mg DAILY ORAL 12/23/18 09:00 01/02/19 23:59 12/23/18 08:08 Levothyroxine Sodium (Synthroid) 200 mcg DAILY@0630 ORAL 12/06/18 06:30 01/05/19 06:29 12/23/18 05:43 Linezolid (Zyvox) 600 mg EVERY 12 HOURS ORAL 12/22/18 21:00 01/04/19 08:59 12/23/18 08:08 Magnesium Hydroxide (Mom) 30 ml DAILYPRN PRN ORAL Constipation 12/05/18 23:15 01/04/19 23:14 Pantoprazole (Protonix) 40 mg DAILY ORAL 12/06/18 09:00 01/05/19 08:59 12/11/18 10:00 Sennosides (Senokot) 17.2 mg BEDTIME ORAL 12/06/18 21:00 01/05/19 20:59 12/21/18 21:04 Sodium Chloride 1,000 ml @ 75 mls/hr [id number] IV 12/10/18 09:45 01/09/19 09:44 12/23/18 04:53 Temazepam (Restoril) 15 mg HSPRN PRN ORAL Insomnia 12/20/18 23:30 12/27/18 23:29 12/23/18 00:34 Temazepam (Restoril) 30 mg HSPRN PRN ORAL Insomnia 12/20/18 23:00 12/27/18 22:59 12/22/18 21:28 Last 24 Hour Vital Signs Date Time Temp Pulse Resp B/P (MAP) Pulse Ox O2 Delivery O2 Flow Rate FiO2 12/23/18 09:00 Room Air 12/23/18 08:00 98.7 86 18 96/59 (71) 97 12/23/18 04:00 96.9 70 18 106/68 (81) 97 12/23/18 00:00 97.5 78 18 112/63 (79) 96 12/22/18 21:00 Room Air 12/22/18 20:00 98.9 85 18 102/58 (73) 96 12/22/18 16:00 98.8 75 20 120/67 (84) 96 12/22/18 12:00 98.6 81 20 131/76 (94) 96 12/22/18 09:00 Room Air 12/22/18 08:00 98.1 83 20 99/63 (75) 96 12/22/18 04:00 98.0 72 18 116/74 (88) 98 12/21/18 23:54 98.9 78 20 101/60 (74) 98 12/21/18 20:42 Room Air 12/21/18 20:00 98.6 81 18 103/59 (74) 96 12/21/18 18:58 98.8 12/21/18 16:00 98.8 81 18 114/64 (81) 96 Intake and Output 12/22/18 12/23/18 19:00 07:00 Intake Total 1260 ml Output Total 500 ml 1000 ml Balance 760 ml -1000 ml Intake Oral 360 ml IV Total 900 ml Output Urine Total 500 ml 1000 ml # Voids 2 3 Height (Feet): 5 Height (Inches): 0.00 Weight (Pounds): 149 Objective Gen: Nad Pulm: Ctab CV: rrr, no mgr Abd: soft, nt, nd Ext: b/l nka noted, dressings+ Oseas Tong MD Dec 23, 2018 12:38
[2018-12-23 16:00] VITALS: BP 99/56
--- NOTE | 2018-12-23 16:42 | General Progress Note ---
Assessment/Plan Problem List: (1) Leg pain ICD Codes: M79.606 - Leg pain SNOMED: 28434982 (2) Anemia ICD Codes: D64.9 - Anemia, unspecified SNOMED: 468577577 (3) Amputation stump infection ICD Codes: T87.40 - Infection of amputation stump, unspecified extremity SNOMED: 255684021 (4) Postoperative wound closure planning ICD Codes: Z48.1 - Encounter for planned postprocedural wound closure SNOMED: 776791381 (5) Stump injury ICD Codes: T14.8 - Other injury of unspecified body region SNOMED: 070251026 (6) Infection of amputation stump, right lower extremity ICD Codes: T87.43 - Infection of amputation stump, right lower extremity SNOMED: 009012499, 654644105 Status: stable, progressing Assessment/Plan: wound vac abx. per ID afebrile needs placement in snf I&d by dr duarte s/p wound dehiscence needs snf placement for wound care and iv abx Subjective ROS Limited/Unobtainable: Yes Allergies: Coded Allergies: No Known Allergies (Unverified , 01/04/17) Objective Last 24 Hour Vital Signs Date Time Temp Pulse Resp B/P (MAP) Pulse Ox O2 Delivery O2 Flow Rate FiO2 12/23/18 16:00 97.1 81 19 99/56 (70) 99 12/23/18 09:00 Room Air 12/23/18 08:00 98.7 86 18 96/59 (71) 97 12/23/18 04:00 96.9 70 18 106/68 (81) 97 12/23/18 00:00 97.5 78 18 112/63 (79) 96 12/22/18 21:00 Room Air 12/22/18 20:00 98.9 85 18 102/58 (73) 96 Intake and Output 12/22/18 12/23/18 19:00 07:00 Intake Total 1260 ml 150 ml Output Total 500 ml 1000 ml Balance 760 ml -850 ml Intake Oral 360 ml IV Total 900 ml 150 ml Output Urine Total 500 ml 1000 ml # Voids 2 3 Height (Feet): 5 Height (Inches): 0.00 Weight (Pounds): 149 Neck: supple Cardiovascular: normal rate Respiratory/Chest: lungs clear Abdomen: soft Rossy Samuel MD Dec 23, 2018 16:42
[2018-12-23 20:00] VITALS: BP 106/61
[2018-12-23] MEDS: Sennosides 8.6mg tab ORAL SCH (20:10)
[2018-12-23] MEDS: Dyna-Hex 2% Top Sol 2oz TOPIC SCH (20:11)
[2018-12-24] VITALS: BP 102/54
[2018-12-24 04:00] VITALS: BP 147/96
[2018-12-24 08:00] VITALS: BP 104/60
[2018-12-24] MEDS: Milk of Magnesia 30ml Ud ORAL PRN (09:43)
--- NOTE | 2018-12-24 11:36 | Infectious Diseases Prog Note ---
Assessment/Plan Assessment/Plan IMPRESSION: 1. Amputation stump infection, more in the right side. - cultures; MRSA, Enterococcus ( VRE & Proteus - bone biopsy, like acute osteomyelitis 2 wound dehiscence of right amputation stump. 3. Anemia. 4. Hypothyroidism. 5. History of melanoma. 6. thrombocytopenia due to Zyvox RECOMMENDATIONS: 1. We will continue with Levaquin & PO Zyvox X 23 days 2. Waiting for placement 3. F/U CBC weekly Subjective ROS Limited/Unobtainable: No Constitutional: Reports: no symptoms Cardiovascular: Reports: no symptoms Gastrointestinal/Abdominal: Reports: no symptoms Musculoskeletal: Reports: pain, other - controlled Allergies: Coded Allergies: No Known Allergies (Unverified , 01/04/17) Objective Vital Signs Last 24 Hour Vital Signs Date Time Temp Pulse Resp B/P (MAP) Pulse Ox O2 Delivery O2 Flow Rate FiO2 12/24/18 09:00 Room Air 12/24/18 08:00 98.3 85 19 104/60 (75) 94 12/24/18 04:00 97.8 86 19 147/96 (113) 95 12/24/18 00:00 98.2 83 18 102/54 (70) 97 12/23/18 21:00 Room Air 12/23/18 20:00 98.3 90 19 106/61 (76) 95 12/23/18 16:00 97.1 81 19 99/56 (70) 99 Height (Feet): 5 Height (Inches): 0.00 Weight (Pounds): 149 General Appearance: no acute distress HEENT: mucous membranes moist Respiratory/Chest: lungs clear Cardiovascular: normal rate Abdomen: soft, non tender Extremities: no edema, other - bilaterl BKA Skin: ulcers, other - woundvac on right stump Neurologic/Psychiatric: alert, oriented x 3, responsive Current Medications Medications (Trade) Dose Ordered Sig/Trever Route PRN Reason Start Time Stop Time Status Last Admin Dose Admin Acetaminophen (Tylenol) 500 mg Q8H PRN ORAL Moderate Pain (Pain Scale 4-6) 12/05/18 23:15 01/04/19 23:14 Acetaminophen (Tylenol) 650 mg Q4H PRN ORAL Mild Pain/Temp > 100.5 12/05/18 23:15 01/04/19 23:14 Al Hydroxide/Mg Hydroxide (Mylanta II) 10 ml Q4H PRN ORAL indegestion 12/05/18 23:15 01/04/19 23:14 Bisacodyl (Dulcolax) 10 mg DAILYPRN PRN RECTAL Constipation 12/05/18 23:15 01/04/19 23:14 Chlorhexidine Gluconate (Sammie-Hex 2%) 1 applic DAILY@2000 TOPIC 12/06/18 20:00 01/05/19 19:59 12/23/18 20:11 Hydromorphone HCl (Dilaudid) 2 mg Q3H PRN IVP SEVERE PAIN 7-10 12/20/18 06:15 12/27/18 06:14 12/24/18 09:44 Levofloxacin (Levaquin) 250 mg DAILY ORAL 12/23/18 09:00 01/02/19 23:59 12/24/18 09:33 Levothyroxine Sodium (Synthroid) 200 mcg DAILY@0630 ORAL 12/06/18 06:30 01/05/19 06:29 12/24/18 05:46 Linezolid (Zyvox) 600 mg EVERY 12 HOURS ORAL 12/22/18 21:00 01/04/19 08:59 12/24/18 09:33 Magnesium Hydroxide (Mom) 30 ml DAILYPRN PRN ORAL Constipation 12/05/18 23:15 01/04/19 23:14 12/24/18 09:43 Pantoprazole (Protonix) 40 mg DAILY ORAL 12/06/18 09:00 01/05/19 08:59 12/11/18 10:00 Sennosides (Senokot) 17.2 mg BEDTIME ORAL 12/06/18 21:00 01/05/19 20:59 12/23/18 20:10 Sodium Chloride 1,000 ml @ 75 mls/hr [id number] IV 12/10/18 09:45 01/09/19 09:44 12/24/18 05:46 Temazepam (Restoril) 15 mg HSPRN PRN ORAL Insomnia 12/20/18 23:30 12/27/18 23:29 12/24/18 01:09 Temazepam (Restoril) 30 mg HSPRN PRN ORAL Insomnia 12/20/18 23:00 12/27/18 22:59 12/23/18 22:00 Partha Obrien MD Dec 24, 2018 11:36
--- NOTE | 2018-12-24 13:48 | Surgery Progress Note ---
Surgery Progress Note Subjective Symptoms: improved, tolerating diet, voiding well, passing flatus, pain decreased Objective Last 24 Hour Vital Signs Date Time Temp Pulse Resp B/P (MAP) Pulse Ox O2 Delivery O2 Flow Rate FiO2 12/24/18 09:00 Room Air 12/24/18 08:00 98.3 85 19 104/60 (75) 94 12/24/18 04:00 97.8 86 19 147/96 (113) 95 12/24/18 00:00 98.2 83 18 102/54 (70) 97 12/23/18 21:00 Room Air 12/23/18 20:00 98.3 90 19 106/61 (76) 95 12/23/18 16:00 97.1 81 19 99/56 (70) 99 I&O Intake and Output 12/23/18 12/24/18 18:59 06:59 Intake Total 1695 ml 825 ml Output Total 700 ml 900 ml Balance 995 ml -75 ml Intake Oral 720 ml IV Total 975 ml 825 ml Output Urine Total 700 ml 900 ml # Voids 4 Dressing: dry Wound: clean Drains: wound vac Cardiovascular: RSR Respiratory: clear Abdomen: soft, flat, non-tender Extremities: edema, no tenderness, no cyanosis Plan Problems: (1) Amputation stump infection Assessment & Plan: bilateral lower extremity below-knee amputations. On the right side the recent revision flap has dehisced and serous purulent drainage identified with viable sutures and palpable bone. On the left side the flap is intact on the medial aspect there is drainage coming from the wound bed in between the barbara. There is an opening on the lateral aspect approximately 2 cm x 2 cm with unknown depth given its location. We will currently continue with localized wound care as I discussed with the operating orthopedic surgeon about potential management. I discussed with the patient the current findings and the potential necessity for reoperation versus ray amputation. Versus potential salvage. Continue with IV antibiotics s/p debridement by plastic surgery 12/11 wound vac placed today by myself 12/12 d/c planning With follow with local wound care and evaluation We will discuss with orthopedic and medical team Thank you for allowing participate patient's care (2) Sacral decubitus ulcer Assessment & Plan: This is a 88-year-old male with multiple small full- thickness sacral decubitus ulcers. Patient states that he formed because he was laying flat for 15 days at an outside facility. Identified upon admission and initiated care plan. Periwound seems to have prior healing areas as well as acute inflamed areas with full-thickness breakdown approximately 1 cm x 1 cm on the left buttock/sacral cleft and similarly on the right as well. No active drainage. No foul order. Pt presented on admission with keloid scar with hyperpigmentation sacrum from previous pressure injury;confirmed by pt. Dry loose skin noted to R and L sacrum. No open areas noted. Pt denied tenderness when site palpated. Pt resistive to being repositioned on his sides and was educated of potential risks for already compromised skin to breakdown . Pt demonstrated ability to reposition self when cued.Demonstrated to pt on how to utilize side rails to off -lift buttocks and shift weight in bed. Skin lesions noted to R and L scalp. Pt verbalized he has skin cancer and lesions were recently removed. Hypergranular skin lesions also noted to Lateral L thigh. Apply Moisture Barrier Paste to Sacrum. Cover with Optifoam drsg. Change every 3 days and prn. Encourage and assist with repositioning at least every 2hours or as tolerated.Elevate BKA stumps on pillow. Turn every 2 hours. Patient willing and does assist with ensuring that he turns every so often Offload stump pressures with pillow Thank you for allowing me to participate in patient's care will follow with recommendations (3) Postoperative wound closure planning (4) Stump injury Assessment & Plan: s/p debridement by plastic surgery 12/11 wound vac placed today by myself 12/12 d/c planning plan for VAC upon discharge to SNF if decides he would like amputation will be available Findings: X-ray better demonstrates signs of recent surgery with surgical clips barbara at the site of a below the knee amputation. The cortical margin at the tibial stump appears intact both on x-ray and MRI. MRI examination does demonstrate bone marrow edema in the anterior inferior aspect of the tibial stump. Adjacent soft tissue swelling is present. Given recent surgery the soft tissue changes are expected. The bone marrow edema could be reactive marrow edema or due to osteomyelitis. Suspect the former. Similar signal alteration noted within the left tibial stump (left lower extremity partially imaged on this study on the transcoronal sequences). thank you (5) Infection of amputation stump, right lower extremity Assessment & Plan: much improved d/c planning cont vac on d/c Jaiden Teresa Dec 24, 2018 13:48
[2018-12-24 16:00] VITALS: BP 107/61
[2018-12-24 20:00] VITALS: BP 102/63
[2018-12-24] MEDS: Dyna-Hex 2% Top Sol 2oz TOPIC SCH (20:00)
[2018-12-24] MEDS: Sennosides 8.6mg tab ORAL SCH ×2 (21:00→21:30)
--- NOTE | 2018-12-24 21:14 | General Progress Note ---
Assessment/Plan Problem List: (1) Leg pain ICD Codes: M79.606 - Leg pain SNOMED: 34315843 (2) Anemia ICD Codes: D64.9 - Anemia, unspecified SNOMED: 786178310 (3) Amputation stump infection ICD Codes: T87.40 - Infection of amputation stump, unspecified extremity SNOMED: 098378863 (4) Postoperative wound closure planning ICD Codes: Z48.1 - Encounter for planned postprocedural wound closure SNOMED: 981136569 (5) Stump injury ICD Codes: T14.8 - Other injury of unspecified body region SNOMED: 252110596 (6) Infection of amputation stump, right lower extremity ICD Codes: T87.43 - Infection of amputation stump, right lower extremity SNOMED: 657618337, 367343203 Status: stable, progressing Assessment/Plan: no fever no change spoke re snf update I&d by dr duarte s/p wound dehiscence needs snf placement for wound care and iv abx Subjective ROS Limited/Unobtainable: Yes Allergies: Coded Allergies: No Known Allergies (Unverified , 01/04/17) Objective Last 24 Hour Vital Signs Date Time Temp Pulse Resp B/P (MAP) Pulse Ox O2 Delivery O2 Flow Rate FiO2 12/24/18 16:00 98.6 88 18 107/61 (76) 95 12/24/18 09:00 Room Air 12/24/18 08:00 98.3 85 19 104/60 (75) 94 12/24/18 04:00 97.8 86 19 147/96 (113) 95 12/24/18 00:00 98.2 83 18 102/54 (70) 97 Intake and Output 12/23/18 12/24/18 19:00 07:00 Intake Total 1545 ml 900 ml Output Total 700 ml 900 ml Balance 845 ml 0 ml Intake Oral 720 ml IV Total 825 ml 900 ml Output Urine Total 700 ml 900 ml # Voids 4 Height (Feet): 5 Height (Inches): 0.00 Weight (Pounds): 149 Cardiovascular: normal rate Respiratory/Chest: lungs clear Abdomen: soft Rossy Samuel MD Dec 24, 2018 21:14
[2018-12-25] VITALS: BP 115/78
[2018-12-25 04:00] VITALS: BP 139/65
[2018-12-25 08:02] VITALS: BP 107/69
--- NOTE | 2018-12-25 09:21 | Hematology/Onc Progress Note ---
Assessment/Plan Assessment/Plan IMPRESSION/RECS: # Anemia due to underlying iron deficiency, r/o gi bleed - also with multifactorial component --> anemia panel reviewed and noted with Iron def --> has been started on iv iron x 5 day course --> hgb transfuse if hgb lower than 7 --> hgb trend 10.6-->10.1-->9.9-->9.3-->10.7 --> HOLDING OFF LABS q3 days --> occult ++, dw pcp, outpatient w/u with gi # Thrombocytopenia potentially due to meds --> plt trend 117-->148k --> hepatitis and hiv refusing labs --> imaging abd reviewed # History of melanoma. --> currently in remission # Amputation stump infection, more in the right side. Appears likely osteo --> on cefepime/vanc--> leva/vanc x 34 d --> as per id recs --> surg, pod recs # Wound dehiscence of right amputation stump. --> eval with surg, pod # Hypothyroidism. --> started on synthroid # Dvt ppx scds Time of note does not necessarily correspond to when patient seen Greatly appreciate consultation. Subjective Constitutional: Denies: no symptoms, chills, fever, malaise, weakness, other HEENT: Denies: no symptoms, eye pain, blurred vision, tearing, double vision, ear pain, ear discharge, nose pain, nose congestion, throat pain, throat swelling, mouth pain, mouth swelling, other Cardiovascular: Denies: no symptoms, chest pain, edema, irregular heart rate, lightheadedness, palpitations, syncope, other Respiratory: Denies: no symptoms, cough, shortness of breath, SOB with excertion, SOB at rest, sputum, wheezing, other Gastrointestinal/Abdominal: Denies: no symptoms, abdomen distended, abdominal pain, black stools, tarry stools, blood in stool, constipated, diarrhea, difficulty swallowing, nausea, poor appetite, poor fluid intake, rectal bleeding , vomiting, other Neurologic/Psychiatric: Denies: no symptoms, anxiety, depressed, emotional problems, headache, numbness, paresthesia, pre-existing deficit, seizure, tingling, tremors, weakness, other Endocrine: Denies: no symptoms, excessive sweating, flushing, intolerance to cold, intolerance to heat, increased hunger, increased thirst, increased urine, unexplained weight gain, unexplained weight loss, other Hematologic/Lymphatic: Denies: no symptoms, anemia, easy bleeding, easy bruising, adenopathy, other Allergies: Coded Allergies: No Known Allergies (Unverified , 01/04/17) Subjective 12/09: no events, remains on abx, has been started on iv iron, hgb 9.9 12/11: s/p right leg wound debridement, cultures pending 12/12: vs stable, on abx, cultures noted, bleeding noted on dressing 12/13: no bleeding or chills, labs reviewed, no major night sweats 12/14: no events, no bleeding, wants to take off wound vac and take a shower, no f 12/15: no f/c, vs stable, no bleeding, no acute events, meds reviewed 12/17: leg pain, 06/11, refusing labs currently, no f/c, no bleeding 12/18: no changes, no bleeding, wound better 12/19: refusing labs, pain less today, laying flat 12/20: complaining with rn has had too many blood draws 12/21: no bleeding, chills or night sweats, no major changes 12/22: complaining of some pain, does not want any further lab draws 12/23: no bleeding, no night sweats, no major changes, right stump pain 12/25; refusing care, seen by id, no major changes, no bleeding Objective Objective Current Medications Medications (Trade) Dose Ordered Sig/Trever Route PRN Reason Start Time Stop Time Status Last Admin Dose Admin Acetaminophen (Tylenol) 500 mg Q8H PRN ORAL Moderate Pain (Pain Scale 4-6) 12/05/18 23:15 01/04/19 23:14 Acetaminophen (Tylenol) 650 mg Q4H PRN ORAL Mild Pain/Temp > 100.5 12/05/18 23:15 01/04/19 23:14 Al Hydroxide/Mg Hydroxide (Mylanta II) 10 ml Q4H PRN ORAL indegestion 12/05/18 23:15 01/04/19 23:14 Bisacodyl (Dulcolax) 10 mg DAILYPRN PRN RECTAL Constipation 12/05/18 23:15 01/04/19 23:14 Chlorhexidine Gluconate (Sammie-Hex 2%) 1 applic DAILY@1999 TOPIC 12/06/18 20:00 01/05/19 19:59 12/23/18 20:11 Hydromorphone HCl (Dilaudid) 2 mg Q3H PRN IVP SEVERE PAIN 7-10 12/20/18 06:15 12/27/18 06:14 12/25/18 06:54 Levofloxacin (Levaquin) 250 mg DAILY ORAL 12/23/18 09:00 01/02/19 23:59 12/25/18 08:30 Levothyroxine Sodium (Synthroid) 200 mcg DAILY@0630 ORAL 12/06/18 06:30 01/05/19 06:29 12/25/18 06:54 Linezolid (Zyvox) 600 mg EVERY 12 HOURS ORAL 12/22/18 21:00 01/04/19 08:59 12/25/18 08:30 Magnesium Hydroxide (Mom) 30 ml DAILYPRN PRN ORAL Constipation 12/05/18 23:15 01/04/19 23:14 12/24/18 09:43 Pantoprazole (Protonix) 40 mg DAILY ORAL 12/06/18 09:00 01/05/19 08:59 12/11/18 10:00 Sennosides (Senokot) 17.2 mg BEDTIME ORAL 12/06/18 21:00 01/05/19 20:59 12/24/18 21:30 Sodium Chloride 1,000 ml @ 75 mls/hr [id number] IV 12/10/18 09:45 01/09/19 09:44 12/24/18 20:25 Temazepam (Restoril) 15 mg HSPRN PRN ORAL Insomnia 12/20/18 23:30 12/27/18 23:29 12/25/18 01:33 Temazepam (Restoril) 30 mg HSPRN PRN ORAL Insomnia 12/20/18 23:00 12/27/18 22:59 12/24/18 21:04 Last 24 Hour Vital Signs Date Time Temp Pulse Resp B/P (MAP) Pulse Ox O2 Delivery O2 Flow Rate FiO2 12/25/18 08:05 Room Air 12/25/18 08:02 98.6 77 18 107/69 (82) 95 12/25/18 07:24 97.9 12/25/18 04:00 96.9 76 18 139/65 (89) 95 12/25/18 00:00 97.9 78 18 115/78 (90) 95 12/24/18 21:00 Room Air 12/24/18 20:00 99.0 93 18 102/63 (76) 95 12/24/18 16:00 98.6 88 18 107/61 (76) 95 12/24/18 09:00 Room Air 12/24/18 08:00 98.3 85 19 104/60 (75) 94 12/24/18 04:00 97.8 86 19 147/96 (113) 95 12/24/18 00:00 98.2 83 18 102/54 (70) 97 12/23/18 21:00 Room Air 12/23/18 20:00 98.3 90 19 106/61 (76) 95 12/23/18 16:00 97.1 81 19 99/56 (70) 99 Intake and Output 12/24/18 12/25/18 19:00 07:00 Intake Total 1380 ml 4020 ml Output Total 800 ml 860 ml Balance 580 ml 3160 ml Intake Oral 480 ml 960 ml IV Total 900 ml 1060 ml Other 2000 ml Output Urine Total 800 ml 800 ml Drainage Total 30 ml Estimated Blood Loss 30 ml # Voids 8 # Bowel Movements 2 Height (Feet): 5 Height (Inches): 0.00 Weight (Pounds): 149 Objective Gen: Nad Pulm: Ctab CV: rrr, no mgr Abd: soft, nt, nd Ext: b/l nka noted, dressings+ Oseas Tong MD Dec 25, 2018 09:21
[2018-12-25 12:02] VITALS: BP 134/78
--- NOTE | 2018-12-25 13:07 | Surgery Progress Note ---
Surgery Progress Note Subjective Symptoms: improved, pain absent, tolerating diet, voiding well, passing flatus , BM Objective Last 24 Hour Vital Signs Date Time Temp Pulse Resp B/P (MAP) Pulse Ox O2 Delivery O2 Flow Rate FiO2 12/25/18 12:02 97.9 85 18 134/78 (96) 96 12/25/18 08:05 Room Air 12/25/18 08:02 98.6 77 18 107/69 (82) 95 12/25/18 07:24 97.9 12/25/18 04:00 96.9 76 18 139/65 (89) 95 12/25/18 00:00 97.9 78 18 115/78 (90) 95 12/24/18 21:00 Room Air 12/24/18 20:00 99.0 93 18 102/63 (76) 95 12/24/18 16:00 98.6 88 18 107/61 (76) 95 I&O Intake and Output 12/24/18 12/25/18 18:59 06:59 Intake Total 1380 ml 4020 ml Output Total 800 ml 860 ml Balance 580 ml 3160 ml Intake Oral 480 ml 960 ml IV Total 900 ml 1060 ml Other 2000 ml Output Urine Total 800 ml 800 ml Drainage Total 30 ml Estimated Blood Loss 30 ml # Voids 8 # Bowel Movements 2 Dressing: dry Wound: clean Drains: wound vac Cardiovascular: RSR Respiratory: clear Abdomen: soft, flat, non-tender, present bowel sounds Extremities: no edema, no tenderness, no cyanosis, other Plan Problems: (1) Amputation stump infection Assessment & Plan: bilateral lower extremity below-knee amputations. On the right side the recent revision flap has dehisced and serous purulent drainage identified with viable sutures and palpable bone. On the left side the flap is intact on the medial aspect there is drainage coming from the wound bed in between the barbara. There is an opening on the lateral aspect approximately 2 cm x 2 cm with unknown depth given its location. We will currently continue with localized wound care as I discussed with the operating orthopedic surgeon about potential management. I discussed with the patient the current findings and the potential necessity for reoperation versus ray amputation. Versus potential salvage. Continue with IV antibiotics s/p debridement by plastic surgery 12/11 wound vac placed today by myself 12/12 d/c planning With follow with local wound care and evaluation We will discuss with orthopedic and medical team Thank you for allowing participate patient's care (2) Sacral decubitus ulcer Assessment & Plan: This is a 88-year-old male with multiple small full- thickness sacral decubitus ulcers. Patient states that he formed because he was laying flat for 15 days at an outside facility. Identified upon admission and initiated care plan. Periwound seems to have prior healing areas as well as acute inflamed areas with full-thickness breakdown approximately 1 cm x 1 cm on the left buttock/sacral cleft and similarly on the right as well. No active drainage. No foul order. Pt presented on admission with keloid scar with hyperpigmentation sacrum from previous pressure injury;confirmed by pt. Dry loose skin noted to R and L sacrum. No open areas noted. Pt denied tenderness when site palpated. Pt resistive to being repositioned on his sides and was educated of potential risks for already compromised skin to breakdown . Pt demonstrated ability to reposition self when cued.Demonstrated to pt on how to utilize side rails to off -lift buttocks and shift weight in bed. Skin lesions noted to R and L scalp. Pt verbalized he has skin cancer and lesions were recently removed. Hypergranular skin lesions also noted to Lateral L thigh. Apply Moisture Barrier Paste to Sacrum. Cover with Optifoam drsg. Change every 3 days and prn. Encourage and assist with repositioning at least every 2hours or as tolerated.Elevate BKA stumps on pillow. Turn every 2 hours. Patient willing and does assist with ensuring that he turns every so often Offload stump pressures with pillow Thank you for allowing me to participate in patient's care will follow with recommendations (3) Postoperative wound closure planning (4) Stump injury Assessment & Plan: s/p debridement by plastic surgery 12/11 wound vac placed today by myself 12/12 d/c planning plan for VAC upon discharge to SNF if decides he would like amputation will be available Findings: X-ray better demonstrates signs of recent surgery with surgical clips barbara at the site of a below the knee amputation. The cortical margin at the tibial stump appears intact both on x-ray and MRI. MRI examination does demonstrate bone marrow edema in the anterior inferior aspect of the tibial stump. Adjacent soft tissue swelling is present. Given recent surgery the soft tissue changes are expected. The bone marrow edema could be reactive marrow edema or due to osteomyelitis. Suspect the former. Similar signal alteration noted within the left tibial stump (left lower extremity partially imaged on this study on the transcoronal sequences). thank you (5) Infection of amputation stump, right lower extremity Assessment & Plan: much improved d/c planning cont vac on d/c Additional Comments Wound VAC changed today. DC planning. Pending placement. Jaiden Teresa Dec 25, 2018 13:07
--- NOTE | 2018-12-25 14:01 | Infectious Diseases Prog Note ---
Assessment/Plan Assessment/Plan IMPRESSION: 1. Amputation stump infection, more in the right side. - cultures; MRSA, Enterococcus ( VRE & Proteus - bone biopsy, like acute osteomyelitis 2 wound dehiscence of right amputation stump. 3. Anemia. 4. Hypothyroidism. 5. History of melanoma. 6. thrombocytopenia RECOMMENDATIONS: 1. We will continue with Levaquin & PO Zyvox X 22 days 2. Waiting for placement 3. F/U CBC weekly Subjective ROS Limited/Unobtainable: Yes Constitutional: Denies: fever Allergies: Coded Allergies: No Known Allergies (Unverified , 01/04/17) Objective Vital Signs Last 24 Hour Vital Signs Date Time Temp Pulse Resp B/P (MAP) Pulse Ox O2 Delivery O2 Flow Rate FiO2 12/25/18 12:02 97.9 85 18 134/78 (96) 96 12/25/18 08:05 Room Air 12/25/18 08:02 98.6 77 18 107/69 (82) 95 12/25/18 07:24 97.9 12/25/18 04:00 96.9 76 18 139/65 (89) 95 12/25/18 00:00 97.9 78 18 115/78 (90) 95 12/24/18 21:00 Room Air 12/24/18 20:00 99.0 93 18 102/63 (76) 95 12/24/18 16:00 98.6 88 18 107/61 (76) 95 Height (Feet): 5 Height (Inches): 0.00 Weight (Pounds): 149 General Appearance: no acute distress HEENT: mucous membranes moist Respiratory/Chest: lungs clear Cardiovascular: normal rate Abdomen: soft, non tender Extremities: no edema, other - bilateral BKA Skin: ulcers Neurologic/Psychiatric: other - sleeping Current Medications Medications (Trade) Dose Ordered Sig/Trever Route PRN Reason Start Time Stop Time Status Last Admin Dose Admin Acetaminophen (Tylenol) 500 mg Q8H PRN ORAL Moderate Pain (Pain Scale 4-6) 12/05/18 23:15 01/04/19 23:14 Acetaminophen (Tylenol) 650 mg Q4H PRN ORAL Mild Pain/Temp > 100.5 12/05/18 23:15 01/04/19 23:14 Al Hydroxide/Mg Hydroxide (Mylanta II) 10 ml Q4H PRN ORAL indegestion 12/05/18 23:15 01/04/19 23:14 Bisacodyl (Dulcolax) 10 mg DAILYPRN PRN RECTAL Constipation 12/05/18 23:15 01/04/19 23:14 Chlorhexidine Gluconate (Sammie-Hex 2%) 1 applic DAILY@2000 TOPIC 12/06/18 20:00 01/05/19 19:59 12/23/18 20:11 Hydromorphone HCl (Dilaudid) 2 mg Q3H PRN IVP SEVERE PAIN 7-10 12/20/18 06:15 12/27/18 06:14 12/25/18 12:58 Levofloxacin (Levaquin) 250 mg DAILY ORAL 12/23/18 09:00 01/02/19 23:59 12/25/18 08:30 Levothyroxine Sodium (Synthroid) 200 mcg DAILY@0630 ORAL 12/06/18 06:30 01/05/19 06:29 12/25/18 06:54 Linezolid (Zyvox) 600 mg EVERY 12 HOURS ORAL 12/22/18 21:00 01/04/19 08:59 12/25/18 08:30 Magnesium Hydroxide (Mom) 30 ml DAILYPRN PRN ORAL Constipation 12/05/18 23:15 01/04/19 23:14 12/24/18 09:43 Pantoprazole (Protonix) 40 mg DAILY ORAL 12/06/18 09:00 01/05/19 08:59 12/11/18 10:00 Sennosides (Senokot) 17.2 mg BEDTIME ORAL 12/06/18 21:00 01/05/19 20:59 12/24/18 21:30 Sodium Chloride 1,000 ml @ 75 mls/hr [id number] IV 12/10/18 09:45 01/09/19 09:44 12/25/18 09:59 Temazepam (Restoril) 15 mg HSPRN PRN ORAL Insomnia 12/20/18 23:30 12/27/18 23:29 12/25/18 01:33 Temazepam (Restoril) 30 mg HSPRN PRN ORAL Insomnia 12/20/18 23:00 12/27/18 22:59 12/24/18 21:04 Partha Obrien MD Dec 25, 2018 14:01
[2018-12-25 15:58] VITALS: BP 130/72
[2018-12-25 20:00] VITALS: BP 101/63
[2018-12-25] MEDS: Dyna-Hex 2% Top Sol 2oz TOPIC SCH (21:22)
[2018-12-25] MEDS: Sennosides 8.6mg tab ORAL SCH (21:22)
--- NOTE | 2018-12-25 21:33 | General Progress Note ---
Assessment/Plan Problem List: (1) Leg pain ICD Codes: M79.606 - Leg pain SNOMED: 87597473 (2) Anemia ICD Codes: D64.9 - Anemia, unspecified SNOMED: 583334683 (3) Amputation stump infection ICD Codes: T87.40 - Infection of amputation stump, unspecified extremity SNOMED: 449814750 (4) Postoperative wound closure planning ICD Codes: Z48.1 - Encounter for planned postprocedural wound closure SNOMED: 827110078 (5) Stump injury ICD Codes: T14.8 - Other injury of unspecified body region SNOMED: 566762154 (6) Infection of amputation stump, right lower extremity ICD Codes: T87.43 - Infection of amputation stump, right lower extremity SNOMED: 929485262, 422804787 Status: stable, progressing Assessment/Plan: anemia reviewed chart and labs and meds I&d by dr duarte s/p wound dehiscence needs snf placement for wound care and iv abx Subjective ROS Limited/Unobtainable: Yes Allergies: Coded Allergies: No Known Allergies (Unverified , 01/04/17) Objective Last 24 Hour Vital Signs Date Time Temp Pulse Resp B/P (MAP) Pulse Ox O2 Delivery O2 Flow Rate FiO2 12/25/18 15:58 98.4 80 19 130/72 (91) 97 12/25/18 12:02 97.9 85 18 134/78 (96) 96 12/25/18 08:05 Room Air 12/25/18 08:02 98.6 77 18 107/69 (82) 95 12/25/18 07:24 97.9 12/25/18 04:00 96.9 76 18 139/65 (89) 95 12/25/18 00:00 97.9 78 18 115/78 (90) 95 Intake and Output 12/24/18 12/25/18 19:00 07:00 Intake Total 1380 ml 4020 ml Output Total 800 ml 860 ml Balance 580 ml 3160 ml Intake Oral 480 ml 960 ml IV Total 900 ml 1060 ml Other 2000 ml Output Urine Total 800 ml 800 ml Drainage Total 30 ml Estimated Blood Loss 30 ml # Voids 8 # Bowel Movements 2 Height (Feet): 5 Height (Inches): 0.00 Weight (Pounds): 149 Cardiovascular: normal rate Respiratory/Chest: lungs clear, normal breath sounds Rossy Samuel MD Dec 25, 2018 21:33
[2018-12-26] VITALS: BP 120/63
--- NOTE | 2018-12-26 06:01 | Hematology/Onc Progress Note ---
Assessment/Plan Assessment/Plan IMPRESSION/RECS: # Anemia due to underlying iron deficiency, r/o gi bleed - also with multifactorial component --> anemia panel reviewed and noted with Iron def --> has been started on iv iron x 5 day course --> hgb transfuse if hgb lower than 7 --> hgb trend 10.6-->10.1-->9.9-->9.3-->10.7 --> HOLDING OFF LABS q3 days --> occult ++, dw pcp, outpatient w/u with gi # Thrombocytopenia potentially due to meds --> plt trend 117-->148k --> hepatitis and hiv refusing labs --> imaging abd reviewed # History of melanoma. --> currently in remission # Amputation stump infection, more in the right side. Appears likely osteo --> on cefepime/vanc--> leva/vanc x 34 d --> as per id recs --> surg, pod recs # Wound dehiscence of right amputation stump. --> eval with surg, pod # Hypothyroidism. --> started on synthroid # Dvt ppx scds Time of note does not necessarily correspond to when patient seen Greatly appreciate consultation. Subjective Constitutional: Denies: no symptoms, chills, fever, malaise, weakness, other HEENT: Denies: no symptoms, eye pain, blurred vision, tearing, double vision, ear pain, ear discharge, nose pain, nose congestion, throat pain, throat swelling, mouth pain, mouth swelling, other Cardiovascular: Denies: no symptoms, chest pain, edema, irregular heart rate, lightheadedness, palpitations, syncope, other Respiratory: Denies: no symptoms, cough, shortness of breath, SOB with excertion, SOB at rest, sputum, wheezing, other Gastrointestinal/Abdominal: Denies: no symptoms, abdomen distended, abdominal pain, black stools, tarry stools, blood in stool, constipated, diarrhea, difficulty swallowing, nausea, poor appetite, poor fluid intake, rectal bleeding , vomiting, other Genitourinary: Denies: no symptoms, burning, discharge, frequency, flank pain, hematuria, incontinence, pain, urgency, other Neurologic/Psychiatric: Denies: no symptoms, anxiety, depressed, emotional problems, headache, numbness, paresthesia, pre-existing deficit, seizure, tingling, tremors, weakness, other Allergies: Coded Allergies: No Known Allergies (Unverified , 01/04/17) Subjective 12/09: no events, remains on abx, has been started on iv iron, hgb 9.9 12/11: s/p right leg wound debridement, cultures pending 12/12: vs stable, on abx, cultures noted, bleeding noted on dressing 12/13: no bleeding or chills, labs reviewed, no major night sweats 12/14: no events, no bleeding, wants to take off wound vac and take a shower, no f 12/15: no f/c, vs stable, no bleeding, no acute events, meds reviewed 12/17: leg pain, 06/11, refusing labs currently, no f/c, no bleeding 12/18: no changes, no bleeding, wound better 12/19: refusing labs, pain less today, laying flat 12/20: complaining with rn has had too many blood draws 12/21: no bleeding, chills or night sweats, no major changes 12/22: complaining of some pain, does not want any further lab draws 12/23: no bleeding, no night sweats, no major changes, right stump pain 12/25; refusing care, seen by id, no major changes, no bleeding 12/26: piccline in place, no events, doesn't want am lab draws Objective Objective Current Medications Medications (Trade) Dose Ordered Sig/Trever Route PRN Reason Start Time Stop Time Status Last Admin Dose Admin Acetaminophen (Tylenol) 500 mg Q8H PRN ORAL Moderate Pain (Pain Scale 4-6) 12/05/18 23:15 01/04/19 23:14 Acetaminophen (Tylenol) 650 mg Q4H PRN ORAL Mild Pain/Temp > 100.5 12/05/18 23:15 01/04/19 23:14 Al Hydroxide/Mg Hydroxide (Mylanta II) 10 ml Q4H PRN ORAL indegestion 12/05/18 23:15 01/04/19 23:14 Bisacodyl (Dulcolax) 10 mg DAILYPRN PRN RECTAL Constipation 12/05/18 23:15 01/04/19 23:14 Chlorhexidine Gluconate (Sammie-Hex 2%) 1 applic DAILY@1999 TOPIC 12/06/18 20:00 01/05/19 19:59 12/25/18 21:22 Hydromorphone HCl (Dilaudid) 2 mg Q3H PRN IVP SEVERE PAIN 7-10 12/20/18 06:15 12/27/18 06:14 12/26/18 04:13 Levofloxacin (Levaquin) 250 mg DAILY ORAL 12/23/18 09:00 01/02/19 23:59 12/25/18 08:30 Levothyroxine Sodium (Synthroid) 200 mcg DAILY@0630 ORAL 12/06/18 06:30 01/05/19 06:29 12/26/18 05:51 Linezolid (Zyvox) 600 mg EVERY 12 HOURS ORAL 12/22/18 21:00 01/04/19 08:59 12/25/18 21:22 Magnesium Hydroxide (Mom) 30 ml DAILYPRN PRN ORAL Constipation 12/05/18 23:15 01/04/19 23:14 12/24/18 09:43 Pantoprazole (Protonix) 40 mg DAILY ORAL 12/06/18 09:00 01/05/19 08:59 12/11/18 10:00 Sennosides (Senokot) 17.2 mg BEDTIME ORAL 12/06/18 21:00 01/05/19 20:59 12/25/18 21:22 Sodium Chloride 1,000 ml @ 75 mls/hr [id number] IV 12/10/18 09:45 01/09/19 09:44 12/25/18 22:06 Temazepam (Restoril) 15 mg HSPRN PRN ORAL Insomnia 12/20/18 23:30 12/27/18 23:29 12/25/18 23:53 Temazepam (Restoril) 30 mg HSPRN PRN ORAL Insomnia 12/20/18 23:00 12/27/18 22:59 12/25/18 21:22 Last 24 Hour Vital Signs Date Time Temp Pulse Resp B/P (MAP) Pulse Ox O2 Delivery O2 Flow Rate FiO2 12/26/18 00:00 98.1 71 20 120/63 (82) 95 12/25/18 21:00 Room Air 12/25/18 20:00 98.3 62 20 101/63 (76) 95 12/25/18 15:58 98.4 80 19 130/72 (91) 97 12/25/18 12:02 97.9 85 18 134/78 (96) 96 12/25/18 08:05 Room Air 12/25/18 08:02 98.6 77 18 107/69 (82) 95 12/25/18 07:24 97.9 12/25/18 04:00 96.9 76 18 139/65 (89) 95 12/25/18 00:00 97.9 78 18 115/78 (90) 95 12/24/18 21:00 Room Air 12/24/18 20:00 99.0 93 18 102/63 (76) 95 12/24/18 16:00 98.6 88 18 107/61 (76) 95 12/24/18 09:00 Room Air 12/24/18 08:00 98.3 85 19 104/60 (75) 94 Intake and Output 12/25/18 12/26/18 19:00 07:00 Intake Total 1525 ml Output Total 1000 ml Balance 525 ml Intake Oral 600 ml IV Total 925 ml Output Urine Total 1000 ml # Voids 4 # Bowel Movements 1 Height (Feet): 5 Height (Inches): 0.00 Weight (Pounds): 149 Objective Gen: Nad Pulm: Ctab CV: rrr, no mgr Abd: soft, nt, nd Ext: b/l nka noted, dressings+ Oseas Tong MD Dec 26, 2018 06:01
[2018-12-26 08:00] VITALS: BP 150/72
--- NOTE | 2018-12-26 11:50 | Infectious Diseases Prog Note ---
Assessment/Plan Assessment/Plan IMPRESSION: 1. Amputation stump infection, more in the right side. - cultures; MRSA, Enterococcus ( VRE & Proteus - bone biopsy, like acute osteomyelitis 2 wound dehiscence of right amputation stump. 3. Anemia. 4. Hypothyroidism. 5. History of melanoma. 6. thrombocytopenia RECOMMENDATIONS: 1. We will continue with Levaquin & PO Zyvox X 21 days 2. Waiting for placement 3. F/U CBC weekly Subjective ROS Limited/Unobtainable: No Constitutional: Reports: no symptoms Respiratory: Reports: no symptoms Cardiovascular: Reports: no symptoms Gastrointestinal/Abdominal: Reports: no symptoms Allergies: Coded Allergies: No Known Allergies (Unverified , 01/04/17) Objective Vital Signs Last 24 Hour Vital Signs Date Time Temp Pulse Resp B/P (MAP) Pulse Ox O2 Delivery O2 Flow Rate FiO2 12/26/18 08:05 Room Air 12/26/18 08:00 98.5 78 19 150/72 (98) 95 12/26/18 00:00 98.1 71 20 120/63 (82) 95 12/25/18 21:00 Room Air 12/25/18 20:00 98.3 62 20 101/63 (76) 95 12/25/18 15:58 98.4 80 19 130/72 (91) 97 12/25/18 12:02 97.9 85 18 134/78 (96) 96 Height (Feet): 5 Height (Inches): 0.00 Weight (Pounds): 149 General Appearance: no acute distress HEENT: mucous membranes moist Respiratory/Chest: lungs clear Cardiovascular: normal rate, other - Left arm PICC line Abdomen: soft, non tender Extremities: no edema, other - bilateral BKA Skin: ulcers Neurologic/Psychiatric: alert, oriented x 3, responsive Current Medications Medications (Trade) Dose Ordered Sig/Trever Route PRN Reason Start Time Stop Time Status Last Admin Dose Admin Acetaminophen (Tylenol) 500 mg Q8H PRN ORAL Moderate Pain (Pain Scale 4-6) 12/05/18 23:15 01/04/19 23:14 Acetaminophen (Tylenol) 650 mg Q4H PRN ORAL Mild Pain/Temp > 100.5 12/05/18 23:15 01/04/19 23:14 Al Hydroxide/Mg Hydroxide (Mylanta II) 10 ml Q4H PRN ORAL indegestion 12/05/18 23:15 01/04/19 23:14 Bisacodyl (Dulcolax) 10 mg DAILYPRN PRN RECTAL Constipation 12/05/18 23:15 01/04/19 23:14 Chlorhexidine Gluconate (Sammie-Hex 2%) 1 applic DAILY@2000 TOPIC 12/06/18 20:00 01/05/19 19:59 12/25/18 21:22 Hydromorphone HCl (Dilaudid) 2 mg Q3H PRN IVP SEVERE PAIN 7-10 12/20/18 06:15 12/27/18 06:14 12/26/18 10:45 Levofloxacin (Levaquin) 250 mg DAILY ORAL 12/23/18 09:00 01/02/19 23:59 12/26/18 08:14 Levothyroxine Sodium (Synthroid) 200 mcg DAILY@0630 ORAL 12/06/18 06:30 01/05/19 06:29 12/26/18 05:51 Linezolid (Zyvox) 600 mg EVERY 12 HOURS ORAL 12/22/18 21:00 01/04/19 08:59 12/26/18 08:14 Magnesium Hydroxide (Mom) 30 ml DAILYPRN PRN ORAL Constipation 12/05/18 23:15 01/04/19 23:14 12/24/18 09:43 Pantoprazole (Protonix) 40 mg DAILY ORAL 12/06/18 09:00 01/05/19 08:59 12/11/18 10:00 Sennosides (Senokot) 17.2 mg BEDTIME ORAL 12/06/18 21:00 01/05/19 20:59 12/25/18 21:22 Sodium Chloride 1,000 ml @ 75 mls/hr [id number] IV 12/10/18 09:45 01/09/19 09:44 12/26/18 11:45 Temazepam (Restoril) 15 mg HSPRN PRN ORAL Insomnia 12/20/18 23:30 12/27/18 23:29 12/25/18 23:53 Temazepam (Restoril) 30 mg HSPRN PRN ORAL Insomnia 12/20/18 23:00 12/27/18 22:59 12/25/18 21:22 Partha Obrien MD Dec 26, 2018 11:50
[2018-12-26 12:00] VITALS: BP 145/73
--- NOTE | 2018-12-26 14:53 | Surgery Progress Note ---
Surgery Progress Note Subjective Symptoms: improved, tolerating diet, voiding well, passing flatus, BM Objective Last 24 Hour Vital Signs Date Time Temp Pulse Resp B/P (MAP) Pulse Ox O2 Delivery O2 Flow Rate FiO2 12/26/18 12:00 98.0 76 19 145/73 (97) 98 12/26/18 08:05 Room Air 12/26/18 08:00 98.5 78 19 150/72 (98) 95 12/26/18 00:00 98.1 71 20 120/63 (82) 95 12/25/18 21:00 Room Air 12/25/18 20:00 98.3 62 20 101/63 (76) 95 12/25/18 15:58 98.4 80 19 130/72 (91) 97 I&O Intake and Output 12/25/18 12/26/18 18:59 06:59 Intake Total 1525 ml 900 ml Output Total 1000 ml Balance 525 ml 900 ml Intake Oral 600 ml IV Total 925 ml 900 ml Output Urine Total 1000 ml # Voids 4 3 # Bowel Movements 1 Dressing: dry Wound: clean Drains: wound vac Cardiovascular: RSR Respiratory: clear Abdomen: soft, non-tender, present bowel sounds, non-distended Extremities: no edema, no tenderness, no cyanosis, other Plan Problems: (1) Amputation stump infection Assessment & Plan: bilateral lower extremity below-knee amputations. On the right side the recent revision flap has dehisced and serous purulent drainage identified with viable sutures and palpable bone. On the left side the flap is intact on the medial aspect there is drainage coming from the wound bed in between the barbara. There is an opening on the lateral aspect approximately 2 cm x 2 cm with unknown depth given its location. We will currently continue with localized wound care as I discussed with the operating orthopedic surgeon about potential management. I discussed with the patient the current findings and the potential necessity for reoperation versus ray amputation. Versus potential salvage. Continue with IV antibiotics s/p debridement by plastic surgery 12/11 wound vac placed today by myself 12/12 d/c planning With follow with local wound care and evaluation We will discuss with orthopedic and medical team Thank you for allowing participate patient's care (2) Sacral decubitus ulcer Assessment & Plan: This is a 88-year-old male with multiple small full- thickness sacral decubitus ulcers. Patient states that he formed because he was laying flat for 15 days at an outside facility. Identified upon admission and initiated care plan. Periwound seems to have prior healing areas as well as acute inflamed areas with full-thickness breakdown approximately 1 cm x 1 cm on the left buttock/sacral cleft and similarly on the right as well. No active drainage. No foul order. Pt presented on admission with keloid scar with hyperpigmentation sacrum from previous pressure injury;confirmed by pt. Dry loose skin noted to R and L sacrum. No open areas noted. Pt denied tenderness when site palpated. Pt resistive to being repositioned on his sides and was educated of potential risks for already compromised skin to breakdown . Pt demonstrated ability to reposition self when cued.Demonstrated to pt on how to utilize side rails to off -lift buttocks and shift weight in bed. Skin lesions noted to R and L scalp. Pt verbalized he has skin cancer and lesions were recently removed. Hypergranular skin lesions also noted to Lateral L thigh. Apply Moisture Barrier Paste to Sacrum. Cover with Optifoam drsg. Change every 3 days and prn. Encourage and assist with repositioning at least every 2hours or as tolerated.Elevate BKA stumps on pillow. Turn every 2 hours. Patient willing and does assist with ensuring that he turns every so often Offload stump pressures with pillow Thank you for allowing me to participate in patient's care will follow with recommendations (3) Postoperative wound closure planning (4) Stump injury Assessment & Plan: s/p debridement by plastic surgery 12/11 wound vac placed today by myself 12/12 d/c planning plan for VAC upon discharge to SNF if decides he would like amputation will be available Findings: X-ray better demonstrates signs of recent surgery with surgical clips barbara at the site of a below the knee amputation. The cortical margin at the tibial stump appears intact both on x-ray and MRI. MRI examination does demonstrate bone marrow edema in the anterior inferior aspect of the tibial stump. Adjacent soft tissue swelling is present. Given recent surgery the soft tissue changes are expected. The bone marrow edema could be reactive marrow edema or due to osteomyelitis. Suspect the former. Similar signal alteration noted within the left tibial stump (left lower extremity partially imaged on this study on the transcoronal sequences). thank you (5) Infection of amputation stump, right lower extremity Assessment & Plan: much improved d/c planning cont vac on d/c Jaiden Teresa Dec 26, 2018 14:53
[2018-12-26 16:06] VITALS: BP 132/79
[2018-12-26 20:00] VITALS: BP 115/67
[2018-12-26] MEDS: Sennosides 8.6mg tab ORAL SCH (21:00)
[2018-12-26] MEDS: Dyna-Hex 2% Top Sol 2oz TOPIC SCH (21:01)
--- NOTE | 2018-12-26 21:03 | General Progress Note ---
Assessment/Plan Problem List: (1) Leg pain ICD Codes: M79.606 - Leg pain SNOMED: 68708207 (2) Anemia ICD Codes: D64.9 - Anemia, unspecified SNOMED: 666728349 (3) Amputation stump infection ICD Codes: T87.40 - Infection of amputation stump, unspecified extremity SNOMED: 882217716 (4) Postoperative wound closure planning ICD Codes: Z48.1 - Encounter for planned postprocedural wound closure SNOMED: 610446741 (5) Stump injury ICD Codes: T14.8 - Other injury of unspecified body region SNOMED: 910770115 (6) Infection of amputation stump, right lower extremity ICD Codes: T87.43 - Infection of amputation stump, right lower extremity SNOMED: 246122844, 797313732 Status: stable, progressing Assessment/Plan: no acute events abx per id afebrile no sob I&d by dr duarte s/p wound dehiscence needs snf placement for wound care and iv abx Subjective ROS Limited/Unobtainable: Yes Allergies: Coded Allergies: No Known Allergies (Unverified , 01/04/17) Objective Last 24 Hour Vital Signs Date Time Temp Pulse Resp B/P (MAP) Pulse Ox O2 Delivery O2 Flow Rate FiO2 12/26/18 16:06 98.8 82 19 132/79 (96) 97 12/26/18 12:00 98.0 76 19 145/73 (97) 98 12/26/18 08:05 Room Air 12/26/18 08:00 98.5 78 19 150/72 (98) 95 12/26/18 00:00 98.1 71 20 120/63 (82) 95 Intake and Output 12/25/18 12/26/18 18:59 06:59 Intake Total 1525 ml 900 ml Output Total 1000 ml Balance 525 ml 900 ml Intake Oral 600 ml IV Total 925 ml 900 ml Output Urine Total 1000 ml # Voids 4 3 # Bowel Movements 1 Height (Feet): 5 Height (Inches): 0.00 Weight (Pounds): 149 Cardiovascular: normal rate Respiratory/Chest: lungs clear Rossy Samuel MD Dec 26, 2018 21:03
[2018-12-27] VITALS: BP 125/72
[2018-12-27 04:00] VITALS: BP 105/64
[2018-12-27] MEDS: Milk of Magnesia 30ml Ud ORAL PRN ×2 (05:30→06:12)
[2018-12-27 08:00] VITALS: BP 114/67
--- NOTE | 2018-12-27 08:39 | Consultation ---
History of Present Illness General Date patient seen: Dec 27, 2018 Time patient seen: 07:00 - am Chief Complaint: B/L LE pain Referring physician: Lizzie Reason for Consultation: Pain management Present Illness HPI SUBJECTIVE: Pt is a known patient from prior previous hospital admissions and is s/p revision of b/l BKA with wound vac applied to right LE. He has been on Dilaudid 2mg IV Q3H PRN severe pain which has been keeping his pain at a tolerable level with no new complaints at this time. Allergies: Coded Allergies: No Known Allergies (Unverified , 01/04/17) Medication History Scheduled Levofloxacin* (Levaquin*), 500 MG ORAL DAILY, (Reported) Levothyroxine Sodium* (Synthroid*), 200 MCG ORAL DAILY, (Reported) Linezolid* (Zyvox*), 600 MG ORAL EVERY 12 HOURS, (Reported) Omeprazole (Omeprazole), 40 MG ORAL DAILY, (Reported) Sennosides (Senna Laxative), 17.2 MG PO BEDTIME, (Reported) Temazepam (Restoril*), 45 MG ORAL BEDTIME, (Reported) Trimethoprim/Sulfamethoxazole 160/800* (Bactrim Ds Tablet*), 1 TAB ORAL TWICE A DAY, (Reported) Vancomycin/Water For Inj (Vancomycin 1.5 Gram/300 ml Bag), 1.25 GM IV DAILY, ( Reported) Scheduled PRN Acetaminophen* (Acetaminophen 325MG Tablet*), 650 MG ORAL Q4H PRN for Mild Pain/ Temp > 100.5, (Reported) Acetaminophen* (Acetaminophen Extra Strength*), 500 MG ORAL Q8HR PRN for For Pain, (Reported) Bisacodyl (Bisacodyl), 10 MG RC DAILY PRN for Constipation, (Reported) Hydromorphone HCl/Pf (Dilaudid 2 mg/ml Syringe), 2 MG IJ EVERY 3 HOURS PRN for Severe Pain (Pain Scale 7-10), (Reported) Magnesium Hydroxide* (Milk Of Magnesia*), 30 ML ORAL DAILY PRN for Constipation, (Reported) [Mylanta Ds Liq], 10 ML PO Q4HR PRN for INDIGESTION, (Reported) Patient History Healthcare decision maker Resuscitation status Full Code Advanced Directive on File Review of Systems ROS Narrative REVIEW OF SYSTEMS: Denies rash, fever, chills, sweating, dizziness, drowsiness, or change in weight. No shortness of breath or chest pain. No nausea, vomiting, or blood in the stool or urine. No bowel or bladder incontinence. No dysuria. He is complaining of bilateral lower extremity. Physical Exam Last 24 Hour Vital Signs Date Time Temp Pulse Resp B/P (MAP) Pulse Ox O2 Delivery O2 Flow Rate FiO2 12/27/18 08:07 Room Air 12/27/18 04:00 98.4 80 20 105/64 (78) 95 12/27/18 00:00 97.9 85 20 125/72 (89) 94 12/26/18 21:00 Room Air 12/26/18 20:00 99.0 98 20 115/67 (83) 95 12/26/18 16:06 98.8 82 19 132/79 (96) 97 12/26/18 12:00 98.0 76 19 145/73 (97) 98 Intake and Output 12/26/18 12/27/18 19:00 07:00 Intake Total 1550 ml 675 ml Output Total 400 ml Balance 1550 ml 275 ml IV Total 900 ml 675 ml Other 650 ml Output Urine Total 400 ml # Voids 2 Height (Feet): 5 Height (Inches): 0.00 Weight (Pounds): 149 Medications Current Medications Medications (Trade) Dose Ordered Sig/Trever Route PRN Reason Start Time Stop Time Status Last Admin Dose Admin Acetaminophen (Tylenol) 500 mg Q8H PRN ORAL Moderate Pain (Pain Scale 4-6) 12/05/18 23:15 01/04/19 23:14 Acetaminophen (Tylenol) 650 mg Q4H PRN ORAL Mild Pain/Temp > 100.5 12/05/18 23:15 01/04/19 23:14 Al Hydroxide/Mg Hydroxide (Mylanta II) 10 ml Q4H PRN ORAL indegestion 12/05/18 23:15 01/04/19 23:14 Bisacodyl (Dulcolax) 10 mg DAILYPRN PRN RECTAL Constipation 12/05/18 23:15 01/04/19 23:14 Chlorhexidine Gluconate (Sammie-Hex 2%) 1 applic DAILY@2000 TOPIC 12/06/18 20:00 01/05/19 19:59 12/26/18 21:01 Hydromorphone HCl (Dilaudid) 2 mg Q3H PRN IVP Severe Pain (Pain Scale 7-10) 12/27/18 08:40 01/03/19 08:39 Levofloxacin (Levaquin) 250 mg DAILY ORAL 12/23/18 09:00 01/02/19 23:59 12/26/18 08:14 Levothyroxine Sodium (Synthroid) 200 mcg DAILY@0630 ORAL 12/06/18 06:30 01/05/19 06:29 12/27/18 05:31 Linezolid (Zyvox) 600 mg EVERY 12 HOURS ORAL 12/22/18 21:00 01/04/19 08:59 12/26/18 21:00 Magnesium Hydroxide (Mom) 30 ml DAILYPRN PRN ORAL Constipation 12/05/18 23:15 01/04/19 23:14 12/27/18 06:12 Pantoprazole (Protonix) 40 mg DAILY ORAL 12/06/18 09:00 01/05/19 08:59 12/11/18 10:00 Sennosides (Senokot) 17.2 mg BEDTIME ORAL 12/06/18 21:00 01/05/19 20:59 12/26/18 21:00 Sodium Chloride 1,000 ml @ 75 mls/hr [id number] IV 12/10/18 09:45 01/09/19 09:44 12/27/18 02:17 Temazepam (Restoril) 15 mg HSPRN PRN ORAL Insomnia 12/20/18 23:30 12/27/18 23:29 12/27/18 02:17 Temazepam (Restoril) 30 mg HSPRN PRN ORAL Insomnia 12/20/18 23:00 12/27/18 22:59 12/26/18 22:04 Objective Narrative GENERAL: Alert, awake, and oriented x3. HEENT: PERRLA. NECK: Range of motion is full in all directions. No tenderness. No adenopathy. LUNGS: Clear. HEART: Regular. ABDOMEN: Benign. BACK: Range of motion is full on flexion and extension with no tenderness to paraspinous and trapezius muscles. EXTREMITIES: Bilateral [id number] amputation noted. wound vac applied to right LE Assessment/Plan Assessment/Plan: (1) B/L BKA (2) B/L stump pain (3) s/p stump revision (4) Phantom limb pain The patient will be continued on Dilaudid. The patient was discussed with Dr. Velasquez and Dr. Velasquez concurred. Hiram Griffin Dec 27, 2018 08:39
--- NOTE | 2018-12-27 09:24 | Hematology/Onc Progress Note ---
Assessment/Plan Assessment/Plan IMPRESSION/RECS: # Anemia due to underlying iron deficiency, r/o gi bleed - also with multifactorial component --> anemia panel reviewed and noted with Iron def --> has been started on iv iron x 5 day course --> hgb transfuse if hgb lower than 7 --> hgb trend 10.6-->10.1-->9.9-->9.3-->10.7--> --> HOLDING OFF LABS q3 days --> occult ++, dw pcp, outpatient w/u with gi # Thrombocytopenia potentially due to meds --> plt trend 117-->148k --> hepatitis and hiv refusing labs --> imaging abd reviewed # History of melanoma. --> currently in remission # Amputation stump infection, more in the right side. Appears likely osteo --> on cefepime/vanc--> leva/vanc x 34 d --> as per id recs --> surg, pod recs # Wound dehiscence of right amputation stump. --> eval with surg, pod # Hypothyroidism. --> started on synthroid # Dvt ppx scds Time of note does not necessarily correspond to when patient seen Greatly appreciate consultation. Subjective Allergies: Coded Allergies: No Known Allergies (Unverified , 01/04/17) Subjective 12/09: no events, remains on abx, has been started on iv iron, hgb 9.9 12/11: s/p right leg wound debridement, cultures pending 12/12: vs stable, on abx, cultures noted, bleeding noted on dressing 12/13: no bleeding or chills, labs reviewed, no major night sweats 12/14: no events, no bleeding, wants to take off wound vac and take a shower, no f 12/15: no f/c, vs stable, no bleeding, no acute events, meds reviewed 12/17: leg pain, /10, refusing labs currently, no f/c, no bleeding 12/18: no changes, no bleeding, wound better 12/19: refusing labs, pain less today, laying flat 12/20: complaining with rn has had too many blood draws 12/21: no bleeding, chills or night sweats, no major changes 12/22: complaining of some pain, does not want any further lab draws 12/23: no bleeding, no night sweats, no major changes, right stump pain 12/25; refusing care, seen by id, no major changes, no bleeding 12/26: piccline in place, no events, doesn't want am lab draws 12/27: awake and alert, no acute events, afebrile Objective Objective Current Medications Medications (Trade) Dose Ordered Sig/Trever Route PRN Reason Start Time Stop Time Status Last Admin Dose Admin Acetaminophen (Tylenol) 500 mg Q8H PRN ORAL Moderate Pain (Pain Scale 4-6) 12/05/18 23:15 01/04/19 23:14 Acetaminophen (Tylenol) 650 mg Q4H PRN ORAL Mild Pain/Temp > 100.5 12/05/18 23:15 01/04/19 23:14 Al Hydroxide/Mg Hydroxide (Mylanta II) 10 ml Q4H PRN ORAL indegestion 12/05/18 23:15 01/04/19 23:14 Bisacodyl (Dulcolax) 10 mg DAILYPRN PRN RECTAL Constipation 12/05/18 23:15 01/04/19 23:14 Chlorhexidine Gluconate (Sammie-Hex 2%) 1 applic DAILY@1999 TOPIC 12/06/18 20:00 01/05/19 19:59 12/26/18 21:01 Hydromorphone HCl (Dilaudid) 2 mg Q3H PRN IVP Severe Pain (Pain Scale 7-10) 12/27/18 08:40 01/03/19 08:39 12/27/18 08:38 Levofloxacin (Levaquin) 250 mg DAILY ORAL 12/23/18 09:00 01/02/19 23:59 12/27/18 08:36 Levothyroxine Sodium (Synthroid) 200 mcg DAILY@0630 ORAL 12/06/18 06:30 01/05/19 06:29 12/27/18 05:31 Linezolid (Zyvox) 600 mg EVERY 12 HOURS ORAL 12/22/18 21:00 01/04/19 08:59 12/27/18 08:36 Magnesium Hydroxide (Mom) 30 ml DAILYPRN PRN ORAL Constipation 12/05/18 23:15 01/04/19 23:14 12/27/18 06:12 Pantoprazole (Protonix) 40 mg DAILY ORAL 12/06/18 09:00 01/05/19 08:59 12/11/18 10:00 Sennosides (Senokot) 17.2 mg BEDTIME ORAL 12/06/18 21:00 01/05/19 20:59 12/26/18 21:00 Sodium Chloride 1,000 ml @ 75 mls/hr [id number] IV 12/10/18 09:45 01/09/19 09:44 12/27/18 02:17 Temazepam (Restoril) 15 mg HSPRN PRN ORAL Insomnia 12/20/18 23:30 12/27/18 23:29 12/27/18 02:17 Temazepam (Restoril) 30 mg HSPRN PRN ORAL Insomnia 12/20/18 23:00 12/27/18 22:59 12/26/18 22:04 Last 24 Hour Vital Signs Date Time Temp Pulse Resp B/P (MAP) Pulse Ox O2 Delivery O2 Flow Rate FiO2 12/27/18 08:07 Room Air 12/27/18 08:00 98.8 79 19 114/67 (83) 94 12/27/18 04:00 98.4 80 20 105/64 (78) 95 12/27/18 00:00 97.9 85 20 125/72 (89) 94 12/26/18 21:00 Room Air 12/26/18 20:00 99.0 98 20 115/67 (83) 95 12/26/18 16:06 98.8 82 19 132/79 (96) 97 12/26/18 12:00 98.0 76 19 145/73 (97) 98 12/26/18 08:05 Room Air 12/26/18 08:00 98.5 78 19 150/72 (98) 95 12/26/18 00:00 98.1 71 20 120/63 (82) 95 12/25/18 21:00 Room Air 12/25/18 20:00 98.3 62 20 101/63 (76) 95 12/25/18 15:58 98.4 80 19 130/72 (91) 97 12/25/18 12:02 97.9 85 18 134/78 (96) 96 Intake and Output 12/26/18 12/27/18 19:00 07:00 Intake Total 1550 ml 675 ml Output Total 400 ml Balance 1550 ml 275 ml IV Total 900 ml 675 ml Other 650 ml Output Urine Total 400 ml # Voids 2 Height (Feet): 5 Height (Inches): 0.00 Weight (Pounds): 149 Objective Vitals: reviewed Gen: Nad Pulm: Ctab CV: rrr, no mgr Abd: soft, nt, nd Ext: b/l bka noted, dressings+, wound vac, picc R++ Oseas Tong MD Dec 27, 2018 09:24
--- NOTE | 2018-12-27 11:54 | General Progress Note ---
Assessment/Plan Problem List: (1) Leg pain ICD Codes: M79.606 - Leg pain SNOMED: 92794380 (2) Anemia ICD Codes: D64.9 - Anemia, unspecified SNOMED: 241909156 (3) Amputation stump infection ICD Codes: T87.40 - Infection of amputation stump, unspecified extremity SNOMED: 339301094 (4) Postoperative wound closure planning ICD Codes: Z48.1 - Encounter for planned postprocedural wound closure SNOMED: 782156222 (5) Stump injury ICD Codes: T14.8 - Other injury of unspecified body region SNOMED: 959972915 (6) Infection of amputation stump, right lower extremity ICD Codes: T87.43 - Infection of amputation stump, right lower extremity SNOMED: 323652557, 279385811 Status: stable, progressing Assessment/Plan: no acute events abx per id afebrile no sob I&d by dr duarte s/p wound dehiscence needs snf placement for wound care and iv abx Subjective ROS Limited/Unobtainable: Yes Allergies: Coded Allergies: No Known Allergies (Unverified , 01/04/17) Subjective chronic pain s/p i&d of infected wound and amputation site afebrile reviewed chart and labs needs snf placement Objective Last 24 Hour Vital Signs Date Time Temp Pulse Resp B/P (MAP) Pulse Ox O2 Delivery O2 Flow Rate FiO2 12/27/18 08:07 Room Air 12/27/18 08:00 98.8 79 19 114/67 (83) 94 12/27/18 04:00 98.4 80 20 105/64 (78) 95 12/27/18 00:00 97.9 85 20 125/72 (89) 94 12/26/18 21:00 Room Air 12/26/18 20:00 99.0 98 20 115/67 (83) 95 12/26/18 16:06 98.8 82 19 132/79 (96) 97 12/26/18 12:00 98.0 76 19 145/73 (97) 98 Intake and Output 12/26/18 12/27/18 19:00 07:00 Intake Total 1550 ml 675 ml Output Total 400 ml Balance 1550 ml 275 ml IV Total 900 ml 675 ml Other 650 ml Output Urine Total 400 ml # Voids 2 Height (Feet): 5 Height (Inches): 0.00 Weight (Pounds): 149 Rossy Samuel MD Dec 27, 2018 11:54
[2018-12-27 12:00] VITALS: BP 120/64
--- NOTE | 2018-12-27 12:39 | Infectious Diseases Prog Note ---
Assessment/Plan Assessment/Plan IMPRESSION: 1. Amputation stump infection, more in the right side. - cultures; MRSA, Enterococcus ( VRE & Proteus - bone biopsy, like acute osteomyelitis 2 wound dehiscence of right amputation stump. 3. Anemia. 4. Hypothyroidism. 5. History of melanoma. 6. thrombocytopenia RECOMMENDATIONS: 1. We will continue with Levaquin & PO Zyvox X 20 days 2. Waiting for placement 3. F/U CBC weekly Subjective ROS Limited/Unobtainable: No Constitutional: Reports: no symptoms Gastrointestinal/Abdominal: Reports: no symptoms Genitourinary: Reports: no symptoms Musculoskeletal: Reports: pain, other - better today Allergies: Coded Allergies: No Known Allergies (Unverified , 01/04/17) Objective Vital Signs Last 24 Hour Vital Signs Date Time Temp Pulse Resp B/P (MAP) Pulse Ox O2 Delivery O2 Flow Rate FiO2 12/27/18 12:01 98.8 12/27/18 08:07 Room Air 12/27/18 08:00 98.8 79 19 114/67 (83) 94 12/27/18 04:00 98.4 80 20 105/64 (78) 95 12/27/18 00:00 97.9 85 20 125/72 (89) 94 12/26/18 21:00 Room Air 12/26/18 20:00 99.0 98 20 115/67 (83) 95 12/26/18 16:06 98.8 82 19 132/79 (96) 97 Height (Feet): 5 Height (Inches): 0.00 Weight (Pounds): 149 General Appearance: no acute distress HEENT: mucous membranes moist Respiratory/Chest: lungs clear Cardiovascular: normal rate, other - PICC line Extremities: no edema, other - Bilateral BKA Skin: ulcers, other - R stump woud-vac Neurologic/Psychiatric: alert, oriented x 3, responsive Current Medications Medications (Trade) Dose Ordered Sig/Trever Route PRN Reason Start Time Stop Time Status Last Admin Dose Admin Acetaminophen (Tylenol) 500 mg Q8H PRN ORAL Moderate Pain (Pain Scale 4-6) 12/05/18 23:15 01/04/19 23:14 Acetaminophen (Tylenol) 650 mg Q4H PRN ORAL Mild Pain/Temp > 100.5 12/05/18 23:15 01/04/19 23:14 Al Hydroxide/Mg Hydroxide (Mylanta II) 10 ml Q4H PRN ORAL indegestion 12/05/18 23:15 01/04/19 23:14 Bisacodyl (Dulcolax) 10 mg DAILYPRN PRN RECTAL Constipation 12/05/18 23:15 01/04/19 23:14 Chlorhexidine Gluconate (Sammie-Hex 2%) 1 applic DAILY@2000 TOPIC 12/06/18 20:00 01/05/19 19:59 12/26/18 21:01 Hydromorphone HCl (Dilaudid) 2 mg Q3H PRN IVP Severe Pain (Pain Scale 7-10) 12/27/18 08:40 01/03/19 08:39 12/27/18 11:31 Levofloxacin (Levaquin) 250 mg DAILY ORAL 12/23/18 09:00 01/02/19 23:59 12/27/18 08:36 Levothyroxine Sodium (Synthroid) 200 mcg DAILY@0630 ORAL 12/06/18 06:30 01/05/19 06:29 12/27/18 05:31 Linezolid (Zyvox) 600 mg EVERY 12 HOURS ORAL 12/22/18 21:00 01/04/19 08:59 12/27/18 08:36 Magnesium Hydroxide (Mom) 30 ml DAILYPRN PRN ORAL Constipation 12/05/18 23:15 01/04/19 23:14 12/27/18 06:12 Pantoprazole (Protonix) 40 mg DAILY ORAL 12/06/18 09:00 01/05/19 08:59 12/11/18 10:00 Sennosides (Senokot) 17.2 mg BEDTIME ORAL 12/06/18 21:00 01/05/19 20:59 12/26/18 21:00 Sodium Chloride 1,000 ml @ 75 mls/hr [id number] IV 12/10/18 09:45 01/09/19 09:44 12/27/18 02:17 Temazepam (Restoril) 15 mg HSPRN PRN ORAL Insomnia 12/20/18 23:30 12/27/18 23:29 12/27/18 02:17 Temazepam (Restoril) 30 mg HSPRN PRN ORAL Insomnia 12/20/18 23:00 12/27/18 22:59 12/26/18 22:04 Partha Obrien MD Dec 27, 2018 12:38
[2018-12-27 20:00] VITALS: BP 117/66
[2018-12-27] MEDS: Sennosides 8.6mg tab ORAL SCH (20:58)
[2018-12-27] MEDS: Dyna-Hex 2% Top Sol 2oz TOPIC SCH (20:58)
--- NOTE | 2018-12-27 21:41 | Surgery Progress Note ---
Surgery Progress Note Subjective Additional Comments pending placement doing well no complaints Objective Last 24 Hour Vital Signs Date Time Temp Pulse Resp B/P (MAP) Pulse Ox O2 Delivery O2 Flow Rate FiO2 12/27/18 20:00 98.1 99 18 117/66 (83) 95 12/27/18 18:03 98.8 12/27/18 12:00 97.9 89 18 120/64 (82) 95 12/27/18 08:07 Room Air 12/27/18 08:00 98.8 79 19 114/67 (83) 94 12/27/18 04:00 98.4 80 20 105/64 (78) 95 12/27/18 00:00 97.9 85 20 125/72 (89) 94 I&O Intake and Output 12/26/18 12/27/18 19:00 07:00 Intake Total 1550 ml 675 ml Output Total 400 ml Balance 1550 ml 275 ml IV Total 900 ml 675 ml Other 650 ml Output Urine Total 400 ml # Voids 2 Dressing: dry Wound: clean Drains: wound vac Cardiovascular: RSR Respiratory: clear Abdomen: soft, flat, present bowel sounds Extremities: no edema, no tenderness, no cyanosis Plan Problems: (1) Amputation stump infection Assessment & Plan: bilateral lower extremity below-knee amputations. On the right side the recent revision flap has dehisced and serous purulent drainage identified with viable sutures and palpable bone. On the left side the flap is intact on the medial aspect there is drainage coming from the wound bed in between the barbara. There is an opening on the lateral aspect approximately 2 cm x 2 cm with unknown depth given its location. We will currently continue with localized wound care as I discussed with the operating orthopedic surgeon about potential management. I discussed with the patient the current findings and the potential necessity for reoperation versus ray amputation. Versus potential salvage. Continue with IV antibiotics s/p debridement by plastic surgery 12/11 wound vac placed today by myself 12/12 d/c planning With follow with local wound care and evaluation We will discuss with orthopedic and medical team Thank you for allowing participate patient's care (2) Sacral decubitus ulcer Assessment & Plan: This is a 88-year-old male with multiple small full- thickness sacral decubitus ulcers. Patient states that he formed because he was laying flat for 15 days at an outside facility. Identified upon admission and initiated care plan. Periwound seems to have prior healing areas as well as acute inflamed areas with full-thickness breakdown approximately 1 cm x 1 cm on the left buttock/sacral cleft and similarly on the right as well. No active drainage. No foul order. Pt presented on admission with keloid scar with hyperpigmentation sacrum from previous pressure injury;confirmed by pt. Dry loose skin noted to R and L sacrum. No open areas noted. Pt denied tenderness when site palpated. Pt resistive to being repositioned on his sides and was educated of potential risks for already compromised skin to breakdown . Pt demonstrated ability to reposition self when cued.Demonstrated to pt on how to utilize side rails to off -lift buttocks and shift weight in bed. Skin lesions noted to R and L scalp. Pt verbalized he has skin cancer and lesions were recently removed. Hypergranular skin lesions also noted to Lateral L thigh. Apply Moisture Barrier Paste to Sacrum. Cover with Optifoam drsg. Change every 3 days and prn. Encourage and assist with repositioning at least every 2hours or as tolerated.Elevate BKA stumps on pillow. Turn every 2 hours. Patient willing and does assist with ensuring that he turns every so often Offload stump pressures with pillow Thank you for allowing me to participate in patient's care will follow with recommendations (3) Postoperative wound closure planning (4) Stump injury Assessment & Plan: s/p debridement by plastic surgery 12/11 wound vac placed today by myself 12/12 d/c planning plan for VAC upon discharge to SNF NPWT R BKA changed to today. Wound resolving(L)2.1cm x (W)5.2cm x (D)0.3cm. [place] granulation at base of wound .Edges flat and adherent to base of wound. Periwound is intact.No odor noted. 20ml serous exudate noted in canister. Wound cleansed with Saline. [place] Skin Barrier applied periwound then covered with transparent drape. Granulofoam cut to conform to wound. Additional granulofoam cut to accommodate Sensor trac pad. Covered with transparent drsg. NPWT resumed @125mm/Hg to continuous suction. Pt tolerated procedure well. Wounds L BKA wound medial aspect of L BKA hypergranular, oozing small amt of non -odorous serous exudate. Periwound without erythema or induration. Wound urvashi L BKA hypergranular ,oozing small amt of non-odorous serous exudate . Periwound without erythema or induration. Application of Silver Nitrate sticks applied to both woundsfor hypergranulation. Both wounds covered with Gauze then ABD pad and wrapped with Kerlix. Pt denied pain L BKA. Findings: X-ray better demonstrates signs of recent surgery with surgical clips barbara at the site of a below the knee amputation. The cortical margin at the tibial stump appears intact both on x-ray and MRI. MRI examination does demonstrate bone marrow edema in the anterior inferior aspect of the tibial stump. Adjacent soft tissue swelling is present. Given recent surgery the soft tissue changes are expected. The bone marrow edema could be reactive marrow edema or due to osteomyelitis. Suspect the former. Similar signal alteration noted within the left tibial stump (left lower extremity partially imaged on this study on the transcoronal sequences). thank you (5) Infection of amputation stump, right lower extremity Assessment & Plan: much improved d/c planning cont vac on d/c Jaiden Teresa Dec 27, 2018 21:41
[2018-12-28] VITALS: BP 97/64
--- NOTE | 2018-12-28 06:20 | Hematology/Onc Progress Note ---
Assessment/Plan Assessment/Plan IMPRESSION/RECS: # Anemia due to underlying iron deficiency, r/o gi bleed - also with multifactorial component --> anemia panel reviewed and noted with Iron def --> has been started on iv iron x 5 day course --> hgb transfuse if hgb lower than 7 --> hgb trend 10.6-->10.1-->9.9-->9.3-->10.7--> --> HOLDING OFF LABS q3 days --> occult ++, surendra pcp, outpatient w/u with gi # Thrombocytopenia potentially due to meds --> plt trend 117-->148k --> hepatitis and hiv refusing labs --> imaging abd reviewed # History of melanoma. --> currently in remission # Amputation stump infection, more in the right side. Appears likely osteo --> on cefepime/vanc--> leva/vanc x 34 d --> as per id recs --> surg, pod recs # Wound dehiscence of right amputation stump. --> eval with surg, pod # Hypothyroidism. --> started on synthroid # Dvt ppx lovenox sq since mostly nonambulatory Time of note does not necessarily correspond to when patient seen Greatly appreciate consultation. Subjective Constitutional: Denies: no symptoms, chills, fever, malaise, weakness, other Cardiovascular: Denies: no symptoms, chest pain, edema, irregular heart rate, lightheadedness, palpitations, syncope, other Respiratory: Denies: no symptoms, cough, shortness of breath, SOB with excertion, SOB at rest, sputum, wheezing, other Gastrointestinal/Abdominal: Denies: no symptoms, abdomen distended, abdominal pain, black stools, tarry stools, blood in stool, constipated, diarrhea, difficulty swallowing, nausea, poor appetite, poor fluid intake, rectal bleeding , vomiting, other Genitourinary: Denies: no symptoms, burning, discharge, frequency, flank pain, hematuria, incontinence, pain, urgency, other Neurologic/Psychiatric: Denies: no symptoms, anxiety, depressed, emotional problems, headache, numbness, paresthesia, pre-existing deficit, seizure, tingling, tremors, weakness, other Allergies: Coded Allergies: No Known Allergies (Unverified , 10/3/17) Subjective 12/09: no events, remains on abx, has been started on iv iron, hgb 9.9 12/11: s/p right leg wound debridement, cultures pending 12/12: vs stable, on abx, cultures noted, bleeding noted on dressing 12/13: no bleeding or chills, labs reviewed, no major night sweats 12/14: no events, no bleeding, wants to take off wound vac and take a shower, no f 12/15: no f/c, vs stable, no bleeding, no acute events, meds reviewed 12/17: leg pain, 06/11, refusing labs currently, no f/c, no bleeding 12/18: no changes, no bleeding, wound better 12/19: refusing labs, pain less today, laying flat 12/20: complaining with rn has had too many blood draws 12/21: no bleeding, chills or night sweats, no major changes 12/22: complaining of some pain, does not want any further lab draws 12/23: no bleeding, no night sweats, no major changes, right stump pain 12/25; refusing care, seen by id, no major changes, no bleeding 12/26: piccline in place, no events, doesn't want am lab draws 12/27: awake and alert, no acute events, afebrile 12/28: no events to report o/n, is on levaquin and zyvox x 20 days, no bleeding Objective Objective Current Medications Medications (Trade) Dose Ordered Sig/Trever Route PRN Reason Start Time Stop Time Status Last Admin Dose Admin Acetaminophen (Tylenol) 500 mg Q8H PRN ORAL Moderate Pain (Pain Scale 4-6) 12/05/18 23:15 01/04/19 23:14 Acetaminophen (Tylenol) 650 mg Q4H PRN ORAL Mild Pain/Temp > 100.5 12/05/18 23:15 01/04/19 23:14 Al Hydroxide/Mg Hydroxide (Mylanta II) 10 ml Q4H PRN ORAL indegestion 12/05/18 23:15 01/04/19 23:14 Bisacodyl (Dulcolax) 10 mg DAILYPRN PRN RECTAL Constipation 12/05/18 23:15 01/04/19 23:14 Chlorhexidine Gluconate (Sammie-Hex 2%) 1 applic DAILY@2000 TOPIC 12/06/18 20:00 01/05/19 19:59 12/27/18 20:58 Hydromorphone HCl (Dilaudid) 2 mg Q3H PRN IVP Severe Pain (Pain Scale 7-10) 12/27/18 08:40 01/03/19 08:39 12/28/18 05:33 Levofloxacin (Levaquin) 250 mg DAILY ORAL 12/23/18 09:00 01/16/19 23:59 12/27/18 08:36 Levothyroxine Sodium (Synthroid) 200 mcg DAILY@0630 ORAL 12/06/18 06:30 01/05/19 06:29 12/28/18 05:34 Linezolid (Zyvox) 600 mg EVERY 12 HOURS ORAL 12/22/18 21:00 01/16/19 23:59 12/27/18 20:58 Magnesium Hydroxide (Mom) 30 ml DAILYPRN PRN ORAL Constipation 12/05/18 23:15 01/04/19 23:14 12/27/18 06:12 Pantoprazole (Protonix) 40 mg DAILY ORAL 12/06/18 09:00 01/05/19 08:59 12/11/18 10:00 Sennosides (Senokot) 17.2 mg BEDTIME ORAL 12/06/18 21:00 01/05/19 20:59 12/27/18 20:58 Sodium Chloride 1,000 ml @ 75 mls/hr [id number] IV 12/10/18 09:45 01/09/19 09:44 12/28/18 05:34 Temazepam (Restoril) 15 mg HSPRN PRN ORAL Insomnia 12/28/18 03:00 01/04/19 02:59 12/28/18 03:05 Temazepam (Restoril) 30 mg HSPRN PRN ORAL Insomnia 12/28/18 03:00 01/04/19 02:59 Last 24 Hour Vital Signs Date Time Temp Pulse Resp B/P (MAP) Pulse Ox O2 Delivery O2 Flow Rate FiO2 12/28/18 04:00 18 12/28/18 00:00 97.8 63 20 97/64 (75) 95 12/27/18 21:00 Room Air 12/27/18 20:00 98.1 99 18 117/66 (83) 95 12/27/18 18:03 98.8 12/27/18 12:00 97.9 89 18 120/64 (82) 95 12/27/18 08:07 Room Air 12/27/18 08:00 98.8 79 19 114/67 (83) 94 12/27/18 04:00 98.4 80 20 105/64 (78) 95 12/27/18 00:00 97.9 85 20 125/72 (89) 94 12/26/18 21:00 Room Air 12/26/18 20:00 99.0 98 20 115/67 (83) 95 12/26/18 16:06 98.8 82 19 132/79 (96) 97 12/26/18 12:00 98.0 76 19 145/73 (97) 98 12/26/18 08:05 Room Air 12/26/18 08:00 98.5 78 19 150/72 (98) 95 Intake and Output 12/27/18 12/28/18 18:59 06:59 Intake Total 800 ml 825 ml Balance 800 ml 825 ml IV Total 825 ml Other 800 ml Height (Feet): 5 Height (Inches): 0.00 Weight (Pounds): 149 Objective Vitals: reviewed Gen: Nad Pulm: Ctab CV: rrr, no mgr Abd: soft, nt, nd Ext: b/l bka noted, dressings+, wound vac, picc R++ Oseas Tong MD Dec 28, 2018 06:20
[2018-12-28 08:00] VITALS: BP 113/63
--- NOTE | 2018-12-28 08:33 | General Progress Note ---
Assessment/Plan Assessment/Plan: (1) B/L BKA (2) B/L stump pain (3) s/p stump revision (4) Phantom limb pain The patient will be continued on Dilaudid. The patient was discussed with Dr. Velasquez and Dr. Velasquez concurred. Subjective Date patient seen: Dec 28, 2018 Time patient seen: 07:45 - am Allergies: Coded Allergies: No Known Allergies (Unverified , 01/04/17) Subjective REVIEW OF SYSTEMS: Denies rash, fever, chills, sweating, dizziness, drowsiness, or change in weight. No shortness of breath or chest pain. No nausea, vomiting, or blood in the stool or urine. No bowel or bladder incontinence. No dysuria. He is complaining of bilateral lower extremity. SUBJECTIVE: Pt showing no signs of pain or distress. He continues to c/o pain which has been tolerated on the Dilaudid using 7 doses in the last 24hrs. He has no new complaints at this time. Objective Last 24 Hour Vital Signs Date Time Temp Pulse Resp B/P (MAP) Pulse Ox O2 Delivery O2 Flow Rate FiO2 12/28/18 08:00 97.7 87 18 113/63 (80) 94 12/28/18 07:23 Room Air 12/28/18 04:00 18 12/28/18 00:00 97.8 63 20 97/64 (75) 95 12/27/18 21:00 Room Air 12/27/18 20:00 98.1 99 18 117/66 (83) 95 12/27/18 18:03 98.8 12/27/18 12:00 97.9 89 18 120/64 (82) 95 Intake and Output 12/27/18 12/28/18 18:59 06:59 Intake Total 800 ml 900 ml Output Total 400 ml Balance 800 ml 500 ml IV Total 900 ml Other 800 ml Output Urine Total 400 ml # Voids 2 Height (Feet): 5 Height (Inches): 0.00 Weight (Pounds): 149 Objective GENERAL: Alert, awake, and oriented x3. LUNGS: Clear. HEART: S1 S2 Regular. ABDOMEN: Benign. EXTREMITIES: Bilateral [id number] amputation noted. wound vac applied to right LE. NEURO: No changes. Hiram Griffin Dec 28, 2018 08:33
[2018-12-28] MEDS ORDERED: Enoxaparin 40mg Inj SUBQ SCH (09:00)
--- NOTE | 2018-12-28 11:17 | Infectious Diseases Prog Note ---
Assessment/Plan Assessment/Plan IMPRESSION: 1. Amputation stump infection, more in the right side. - cultures; MRSA, Enterococcus ( VRE & Proteus - bone biopsy, like acute osteomyelitis 2 wound dehiscence of right amputation stump. 3. Anemia. 4. Hypothyroidism. 5. History of melanoma. 6. thrombocytopenia RECOMMENDATIONS: 1. We will continue with Levaquin & PO Zyvox X 19 days 2. Waiting for placement 3. F/U CBC weekly Subjective ROS Limited/Unobtainable: Yes Allergies: Coded Allergies: No Known Allergies (Unverified , 01/04/17) Objective Vital Signs Last 24 Hour Vital Signs Date Time Temp Pulse Resp B/P (MAP) Pulse Ox O2 Delivery O2 Flow Rate FiO2 12/28/18 09:45 97.7 12/28/18 08:00 97.7 87 18 113/63 (80) 94 12/28/18 07:23 Room Air 12/28/18 04:00 18 12/28/18 00:00 97.8 63 20 97/64 (75) 95 12/27/18 21:00 Room Air 12/27/18 20:00 98.1 99 18 117/66 (83) 95 12/27/18 12:00 97.9 89 18 120/64 (82) 95 Height (Feet): 5 Height (Inches): 0.00 Weight (Pounds): 149 General Appearance: no acute distress HEENT: mucous membranes moist Respiratory/Chest: lungs clear Cardiovascular: normal rate, other - PICC line Abdomen: soft, non tender Extremities: other - Bilateral BKA Skin: ulcers, other - wound-vac right stump Neurologic/Psychiatric: other - sleeping Current Medications Medications (Trade) Dose Ordered Sig/Trever Route PRN Reason Start Time Stop Time Status Last Admin Dose Admin Acetaminophen (Tylenol) 500 mg Q8H PRN ORAL Moderate Pain (Pain Scale 4-6) 12/05/18 23:15 01/04/19 23:14 Acetaminophen (Tylenol) 650 mg Q4H PRN ORAL Mild Pain/Temp > 100.5 12/05/18 23:15 01/04/19 23:14 Al Hydroxide/Mg Hydroxide (Mylanta II) 10 ml Q4H PRN ORAL indegestion 12/05/18 23:15 01/04/19 23:14 Alteplase, Recombinant (Cathflo) 4 mg ONCE ONCE INJ 12/28/18 11:30 12/28/18 11:31 UNV Bisacodyl (Dulcolax) 10 mg DAILYPRN PRN RECTAL Constipation 12/05/18 23:15 01/04/19 23:14 Chlorhexidine Gluconate (Sammie-Hex 2%) 1 applic DAILY@2000 TOPIC 12/06/18 20:00 01/05/19 19:59 12/27/18 20:58 Enoxaparin Sodium (Lovenox) 40 mg DAILY SUBQ 12/28/18 09:00 01/27/19 08:59 Hydromorphone HCl (Dilaudid) 2 mg Q3H PRN IVP Severe Pain (Pain Scale 7-10) 12/27/18 08:40 01/03/19 08:39 12/28/18 08:33 Levofloxacin (Levaquin) 250 mg DAILY ORAL 12/23/18 09:00 01/16/19 23:59 12/28/18 08:32 Levothyroxine Sodium (Synthroid) 200 mcg DAILY@0630 ORAL 12/06/18 06:30 01/05/19 06:29 12/28/18 05:34 Linezolid (Zyvox) 600 mg EVERY 12 HOURS ORAL 12/22/18 21:00 01/16/19 23:59 12/28/18 08:32 Magnesium Hydroxide (Mom) 30 ml DAILYPRN PRN ORAL Constipation 12/05/18 23:15 01/04/19 23:14 12/27/18 06:12 Pantoprazole (Protonix) 40 mg DAILY ORAL 12/06/18 09:00 01/05/19 08:59 12/11/18 10:00 Sennosides (Senokot) 17.2 mg BEDTIME ORAL 12/06/18 21:00 01/05/19 20:59 12/27/18 20:58 Sodium Chloride 1,000 ml @ 75 mls/hr [id number] IV 12/10/18 09:45 01/09/19 09:44 12/28/18 05:34 Temazepam (Restoril) 15 mg HSPRN PRN ORAL Insomnia 12/28/18 03:00 01/04/19 02:59 12/28/18 03:05 Temazepam (Restoril) 30 mg HSPRN PRN ORAL Insomnia 12/28/18 03:00 01/04/19 02:59 Partha Obrien MD Dec 28, 2018 11:17
[2018-12-28 11:52] VITALS: BP 120/72
[2018-12-28] MEDS ORDERED: Cathflo Alteplase 2mg Inj INJ ONE (12:30)
[2018-12-28 16:00] VITALS: BP 107/64
--- NOTE | 2018-12-28 17:37 | Surgery Progress Note ---
Surgery Progress Note Subjective Symptoms: improved, tolerating diet, voiding well, passing flatus, BM, pain decreased Objective Last 24 Hour Vital Signs Date Time Temp Pulse Resp B/P (MAP) Pulse Ox O2 Delivery O2 Flow Rate FiO2 12/28/18 16:00 98.1 85 18 107/64 (78) 94 12/28/18 15:00 98.1 12/28/18 11:52 98.1 84 18 120/72 (88) 95 12/28/18 08:00 97.7 87 18 113/63 (80) 94 12/28/18 07:23 Room Air 12/28/18 04:00 18 12/28/18 00:00 97.8 63 20 97/64 (75) 95 12/27/18 21:00 Room Air 12/27/18 20:00 98.1 99 18 117/66 (83) 95 I&O Intake and Output 12/27/18 12/28/18 19:00 07:00 Intake Total 875 ml 825 ml Output Total 400 ml Balance 875 ml 425 ml IV Total 75 ml 825 ml Other 800 ml Output Urine Total 400 ml # Voids 2 Dressing: dry Wound: clean Drains: wound vac Cardiovascular: RSR Respiratory: clear Abdomen: soft, flat, non-tender, present bowel sounds Extremities: no cyanosis, other Plan Problems: (1) Amputation stump infection Assessment & Plan: bilateral lower extremity below-knee amputations. On the right side the recent revision flap has dehisced and serous purulent drainage identified with viable sutures and palpable bone. On the left side the flap is intact on the medial aspect there is drainage coming from the wound bed in between the barbara. There is an opening on the lateral aspect approximately 2 cm x 2 cm with unknown depth given its location. We will currently continue with localized wound care as I discussed with the operating orthopedic surgeon about potential management. I discussed with the patient the current findings and the potential necessity for reoperation versus ray amputation. Versus potential salvage. Continue with IV antibiotics s/p debridement by plastic surgery 12/11 wound vac placed today by myself 12/12 d/c planning With follow with local wound care and evaluation We will discuss with orthopedic and medical team Thank you for allowing participate patient's care (2) Sacral decubitus ulcer Assessment & Plan: This is a 88-year-old male with multiple small full- thickness sacral decubitus ulcers. Patient states that he formed because he was laying flat for 15 days at an outside facility. Identified upon admission and initiated care plan. Periwound seems to have prior healing areas as well as acute inflamed areas with full-thickness breakdown approximately 1 cm x 1 cm on the left buttock/sacral cleft and similarly on the right as well. No active drainage. No foul order. Pt presented on admission with keloid scar with hyperpigmentation sacrum from previous pressure injury;confirmed by pt. Dry loose skin noted to R and L sacrum. No open areas noted. Pt denied tenderness when site palpated. Pt resistive to being repositioned on his sides and was educated of potential risks for already compromised skin to breakdown . Pt demonstrated ability to reposition self when cued.Demonstrated to pt on how to utilize side rails to off -lift buttocks and shift weight in bed. Skin lesions noted to R and L scalp. Pt verbalized he has skin cancer and lesions were recently removed. Hypergranular skin lesions also noted to Lateral L thigh. Apply Moisture Barrier Paste to Sacrum. Cover with Optifoam drsg. Change every 3 days and prn. Encourage and assist with repositioning at least every 2hours or as tolerated.Elevate BKA stumps on pillow. Turn every 2 hours. Patient willing and does assist with ensuring that he turns every so often Offload stump pressures with pillow Thank you for allowing me to participate in patient's care will follow with recommendations (3) Postoperative wound closure planning (4) Stump injury Assessment & Plan: s/p debridement by plastic surgery 12/11 wound vac placed today by myself 12/12 d/c planning plan for VAC upon discharge to SNF NPWT R BKA changed to today. Wound resolving(L)2.1cm x (W)5.2cm x (D)0.3cm. [place] granulation at base of wound .Edges flat and adherent to base of wound. Periwound is intact.No odor noted. 20ml serous exudate noted in canister. Wound cleansed with Saline. [place] Skin Barrier applied periwound then covered with transparent drape. Granulofoam cut to conform to wound. Additional granulofoam cut to accommodate Sensor trac pad. Covered with transparent drsg. NPWT resumed @125mm/Hg to continuous suction. Pt tolerated procedure well. Wounds L BKA wound medial aspect of L BKA hypergranular, oozing small amt of non -odorous serous exudate. Periwound without erythema or induration. Wound urvashi L BKA hypergranular ,oozing small amt of non-odorous serous exudate . Periwound without erythema or induration. Application of Silver Nitrate sticks applied to both woundsfor hypergranulation. Both wounds covered with Gauze then ABD pad and wrapped with Kerlix. Pt denied pain L BKA. Findings: X-ray better demonstrates signs of recent surgery with surgical clips barbara at the site of a below the knee amputation. The cortical margin at the tibial stump appears intact both on x-ray and MRI. MRI examination does demonstrate bone marrow edema in the anterior inferior aspect of the tibial stump. Adjacent soft tissue swelling is present. Given recent surgery the soft tissue changes are expected. The bone marrow edema could be reactive marrow edema or due to osteomyelitis. Suspect the former. Similar signal alteration noted within the left tibial stump (left lower extremity partially imaged on this study on the transcoronal sequences). thank you (5) Infection of amputation stump, right lower extremity Assessment & Plan: much improved d/c planning cont vac on d/c Jaiden Teresa Dec 28, 2018 17:37
[2018-12-28 20:00] VITALS: BP 119/71
[2018-12-28] MEDS: Dyna-Hex 2% Top Sol 2oz TOPIC SCH (20:05)
[2018-12-28] MEDS: Sennosides 8.6mg tab ORAL SCH (21:03)
--- NOTE | 2018-12-28 21:40 | General Progress Note ---
Assessment/Plan Problem List: (1) Leg pain ICD Codes: M79.606 - Leg pain SNOMED: 79462242 (2) Anemia ICD Codes: D64.9 - Anemia, unspecified SNOMED: 000398452 (3) Amputation stump infection ICD Codes: T87.40 - Infection of amputation stump, unspecified extremity SNOMED: 754939047 (4) Postoperative wound closure planning ICD Codes: Z48.1 - Encounter for planned postprocedural wound closure SNOMED: 739063570 (5) Stump injury ICD Codes: T14.8 - Other injury of unspecified body region SNOMED: 395939694 (6) Infection of amputation stump, right lower extremity ICD Codes: T87.43 - Infection of amputation stump, right lower extremity SNOMED: 171522257, 599918857 Status: progressing Assessment/Plan: I&d by dr duarte s/p infected wound dehiscence needs snf placement for wound care and iv abx anemia reviewed chart and labs Subjective ROS Limited/Unobtainable: Yes Allergies: Coded Allergies: No Known Allergies (Unverified , 01/04/17) Subjective chronic pain s/p i&d of infected wound and amputation site afebrile reviewed chart and labs needs snf placement Objective Last 24 Hour Vital Signs Date Time Temp Pulse Resp B/P (MAP) Pulse Ox O2 Delivery O2 Flow Rate FiO2 12/28/18 20:00 98.9 83 20 119/71 (87) 94 12/28/18 18:02 98.1 12/28/18 16:00 98.1 85 18 107/64 (78) 94 12/28/18 11:52 98.1 84 18 120/72 (88) 95 12/28/18 08:00 97.7 87 18 113/63 (80) 94 12/28/18 07:23 Room Air 12/28/18 04:00 18 12/28/18 00:00 97.8 63 20 97/64 (75) 95 Intake and Output 12/27/18 12/28/18 19:00 07:00 Intake Total 875 ml 825 ml Output Total 400 ml Balance 875 ml 425 ml IV Total 75 ml 825 ml Other 800 ml Output Urine Total 400 ml # Voids 2 Height (Feet): 5 Height (Inches): 0.00 Weight (Pounds): 149 Neck: supple Cardiovascular: normal rate Respiratory/Chest: lungs clear Abdomen: soft Rossy Samuel MD Dec 28, 2018 21:40
[2018-12-29] VITALS: BP 108/67
[2018-12-29 04:00] VITALS: BP 103/64
[2018-12-29 05:20] LABS: HEMATOCRIT 23.8 % (42.0-52.0); HEMOGLOBIN 8.1 G/DL (14.2-18.0); MEAN CORPUSCULAR VOLUME 96 FL (80-99); PLATELET COUNT 46 K/UL (150-450); RED BLOOD COUNT 2.48 M/UL (4.70-6.10); RED CELL DISTRIBUTION WIDTH 13.2 % (11.6-14.8); WHITE BLOOD COUNT 4.6 K/UL (4.8-10.8)
[2018-12-29 08:00] VITALS: BP 108/66
--- NOTE | 2018-12-29 08:26 | General Progress Note ---
Assessment/Plan Assessment/Plan: (1) B/L BKA (2) B/L stump pain (3) s/p stump revision (4) Phantom limb pain The patient will be continued on Dilaudid. The patient was discussed with Dr. Velasquez and Dr. Velasquez concurred. Subjective Date patient seen: Dec 29, 2018 Time patient seen: 07:30 - am Allergies: Coded Allergies: No Known Allergies (Unverified , 01/04/17) Subjective REVIEW OF SYSTEMS: Denies rash, fever, chills, sweating, dizziness, drowsiness, or change in weight. No shortness of breath or chest pain. No nausea, vomiting, or blood in the stool or urine. No bowel or bladder incontinence. No dysuria. He is complaining of bilateral lower extremity. SUBJECTIVE: Pt has been in bed continues to c/o severe pain in his b/l BKAs, it has been sharp and stabbing worsened with the wound vac on Right BKA. Has requested 7 doses of the Dilaudid in the last 24hrs which has allowed him to tolerate the pain. No new complaints at this time. Objective Last 24 Hour Vital Signs Date Time Temp Pulse Resp B/P (MAP) Pulse Ox O2 Delivery O2 Flow Rate FiO2 12/29/18 04:00 97.8 62 20 103/64 (77) 95 12/29/18 00:00 98.2 84 20 108/67 (81) 95 12/28/18 21:00 Room Air 12/28/18 20:00 98.9 83 20 119/71 (87) 94 12/28/18 18:02 98.1 12/28/18 16:00 98.1 85 18 107/64 (78) 94 12/28/18 11:52 98.1 84 18 120/72 (88) 95 Intake and Output 12/28/18 12/29/18 18:59 06:59 Intake Total 700 ml 1250 ml Output Total 200 ml 1000 ml Balance 500 ml 250 ml Intake Oral 350 ml IV Total 900 ml Other 700 ml Output Urine Total 200 ml 1000 ml # Voids 5 # Bowel Movements 1 Laboratory Tests 12/29/18 03:55: White Blood Count 4.6L, Red Blood Count 2.48L, Hemoglobin 8.1L, Hematocrit 23.8L , Mean Corpuscular Volume 96, Mean Corpuscular Hemoglobin 32.7H, Mean Corpuscular Hemoglobin Concent 34.0, Red Cell Distribution Width 13.2, Platelet Count 46L, Mean Platelet Volume 10.6H, Neutrophils (%) (Auto) , Lymphocytes (%) (Auto) , Monocytes (%) (Auto) , Eosinophils (%) (Auto) , Basophils (%) (Auto) , Neutrophils % (Manual) [Pending], Lymphocytes % (Manual) [Pending], Platelet Estimate [Pending], Platelet Morphology [Pending] Height (Feet): 5 Height (Inches): 0.00 Weight (Pounds): 149 Objective GENERAL: Alert, awake, and oriented x3. LUNGS: Clear. HEART: S1 S2 Regular. ABDOMEN: Benign. EXTREMITIES: Bilateral [id number] amputation noted. wound vac applied to right LE. NEURO: No changes. Hiram Griffin Dec 29, 2018 08:26
[2018-12-29] MEDS ORDERED: Naloxone 0.4mg/ml Inj IVP PRN (08:30)
--- NOTE | 2018-12-29 09:26 | Hematology/Onc Progress Note ---
Assessment/Plan Assessment/Plan IMPRESSION/RECS: # Anemia due to underlying iron deficiency, r/o gi bleed - also with multifactorial component --> anemia panel reviewed and noted with Iron def --> has been started on iv iron x 5 day course --> hgb transfuse if hgb lower than 7 --> hgb trend 10.6-->10.1-->9.9-->9.3-->10.7-->8.1 --> HOLDING OFF LABS q3 days --> occult ++, surendra pcp, outpatient w/u with gi # Thrombocytopenia potentially due to meds --> plt trend 117-->148k-->46 --> hepatitis and hiv refusing labs --> imaging abd reviewed # History of melanoma. --> currently in remission # Amputation stump infection, more in the right side. Appears likely osteo --> on cefepime/vanc--> leva/vanc x 34 d --> as per id recs --> surg, pod recs # Wound dehiscence of right amputation stump. --> eval with surg, pod # Hypothyroidism. --> started on synthroid # Dvt ppx lovenox sq since mostly nonambulatory Time of note does not necessarily correspond to when patient seen Greatly appreciate consultation. Subjective Allergies: Coded Allergies: No Known Allergies (Unverified , 01/04/17) Subjective 12/09: no events, remains on abx, has been started on iv iron, hgb 9.9 12/11: s/p right leg wound debridement, cultures pending 12/12: vs stable, on abx, cultures noted, bleeding noted on dressing 12/13: no bleeding or chills, labs reviewed, no major night sweats 12/14: no events, no bleeding, wants to take off wound vac and take a shower, no f 12/15: no f/c, vs stable, no bleeding, no acute events, meds reviewed 12/17: leg pain, 3/10, refusing labs currently, no f/c, no bleeding 12/18: no changes, no bleeding, wound better 12/19: refusing labs, pain less today, laying flat 12/20: complaining with rn has had too many blood draws 12/21: no bleeding, chills or night sweats, no major changes 12/22: complaining of some pain, does not want any further lab draws 12/23: no bleeding, no night sweats, no major changes, right stump pain 12/25; refusing care, seen by id, no major changes, no bleeding 12/26: piccline in place, no events, doesn't want am lab draws 12/27: awake and alert, no acute events, afebrile 12/28: no events to report o/n, is on levaquin and zyvox x 20 days, no bleeding 12/29: no acute events, c/o pain, h/h stable, repeat cbc tomorrow Objective Objective Current Medications Medications (Trade) Dose Ordered Sig/Trever Route PRN Reason Start Time Stop Time Status Last Admin Dose Admin Acetaminophen (Tylenol) 500 mg Q8H PRN ORAL Moderate Pain (Pain Scale 4-6) 12/05/18 23:15 01/04/19 23:14 Acetaminophen (Tylenol) 650 mg Q4H PRN ORAL Mild Pain/Temp > 100.5 12/05/18 23:15 01/04/19 23:14 Al Hydroxide/Mg Hydroxide (Mylanta II) 10 ml Q4H PRN ORAL indegestion 12/05/18 23:15 01/04/19 23:14 Bisacodyl (Dulcolax) 10 mg DAILYPRN PRN RECTAL Constipation 12/05/18 23:15 01/04/19 23:14 Chlorhexidine Gluconate (Sammie-Hex 2%) 1 applic DAILY@1999 TOPIC 12/06/18 20:00 01/05/19 19:59 12/28/18 20:05 Hydromorphone HCl (Dilaudid) 2 mg Q3H PRN IVP Severe Pain (Pain Scale 7-10) 12/27/18 08:40 01/03/19 08:39 12/29/18 06:34 Levofloxacin (Levaquin) 250 mg DAILY ORAL 12/23/18 09:00 01/16/19 23:59 12/28/18 08:32 Levothyroxine Sodium (Synthroid) 200 mcg DAILY@0630 ORAL 12/06/18 06:30 01/05/19 06:29 12/29/18 06:33 Linezolid (Zyvox) 600 mg EVERY 12 HOURS ORAL 12/22/18 21:00 01/16/19 23:59 12/28/18 21:04 Magnesium Hydroxide (Mom) 30 ml DAILYPRN PRN ORAL Constipation 12/05/18 23:15 01/04/19 23:14 12/27/18 06:12 Naloxone HCl (Narcan) 0.2 mg Q2M PRN IVP RESPRITORY DEPRESSION 12/29/18 08:30 01/28/19 08:29 Pantoprazole (Protonix) 40 mg DAILY ORAL 12/06/18 09:00 01/05/19 08:59 12/11/18 10:00 Sennosides (Senokot) 17.2 mg BEDTIME ORAL 12/06/18 21:00 01/05/19 20:59 12/28/18 21:03 Sodium Chloride 1,000 ml @ 75 mls/hr [id number] IV 12/10/18 09:45 01/09/19 09:44 12/29/18 06:33 Temazepam (Restoril) 15 mg HSPRN PRN ORAL Insomnia 12/28/18 03:00 01/04/19 02:59 12/29/18 01:56 Temazepam (Restoril) 30 mg HSPRN PRN ORAL Insomnia 12/28/18 03:00 01/04/19 02:59 12/28/18 20:05 Last 24 Hour Vital Signs Date Time Temp Pulse Resp B/P (MAP) Pulse Ox O2 Delivery O2 Flow Rate FiO2 12/29/18 04:00 97.8 62 20 103/64 (77) 95 12/29/18 00:00 98.2 84 20 108/67 (81) 95 12/28/18 21:00 Room Air 12/28/18 20:00 98.9 83 20 119/71 (87) 94 12/28/18 18:02 98.1 12/28/18 16:00 98.1 85 18 107/64 (78) 94 12/28/18 11:52 98.1 84 18 120/72 (88) 95 12/28/18 08:00 97.7 87 18 113/63 (80) 94 12/28/18 07:23 Room Air 12/28/18 04:00 18 12/28/18 00:00 97.8 63 20 97/64 (75) 95 12/27/18 21:00 Room Air 12/27/18 20:00 98.1 99 18 117/66 (83) 95 12/27/18 12:00 97.9 89 18 120/64 (82) 95 Intake and Output 12/28/18 12/29/18 18:59 06:59 Intake Total 700 ml 1250 ml Output Total 200 ml 1000 ml Balance 500 ml 250 ml Intake Oral 350 ml IV Total 900 ml Other 700 ml Output Urine Total 200 ml 1000 ml # Voids 5 # Bowel Movements 1 Labs Test 12/29/18 03:55 White Blood Count 4.6 K/UL (4.8-10.8) Red Blood Count 2.48 M/UL (4.70-6.10) Hemoglobin 8.1 G/DL (14.2-18.0) Hematocrit 23.8 % (42.0-52.0) Mean Corpuscular Volume 96 FL (80-99) Mean Corpuscular Hemoglobin 32.7 PG (27.0-31.0) Mean Corpuscular Hemoglobin Concent 34.0 G/DL (32.0-36.0) Red Cell Distribution Width 13.2 % (11.6-14.8) Platelet Count 46 K/UL (150-450) Mean Platelet Volume 10.6 FL (6.5-10.1) Neutrophils (%) (Auto) % (45.0-75.0) Lymphocytes (%) (Auto) % (20.0-45.0) Monocytes (%) (Auto) % (1.0-10.0) Eosinophils (%) (Auto) % (0.0-3.0) Basophils (%) (Auto) % (0.0-2.0) Height (Feet): 5 Height (Inches): 0.00 Weight (Pounds): 149 Objective Vitals: reviewed Gen: Nad Pulm: Ctab CV: rrr, no mgr Abd: soft, nt, nd Ext: b/l bka noted, dressings+, wound vac, picc R++ Oseas Tong MD Dec 29, 2018 09:26
[2018-12-29 12:00] VITALS: BP 118/72
--- NOTE | 2018-12-29 12:25 | General Progress Note ---
Assessment/Plan Problem List: (1) Leg pain ICD Codes: M79.606 - Leg pain SNOMED: 00226412 (2) Anemia ICD Codes: D64.9 - Anemia, unspecified SNOMED: 009070054 (3) Amputation stump infection ICD Codes: T87.40 - Infection of amputation stump, unspecified extremity SNOMED: 964489086 (4) Postoperative wound closure planning ICD Codes: Z48.1 - Encounter for planned postprocedural wound closure SNOMED: 024399390 (5) Stump injury ICD Codes: T14.8 - Other injury of unspecified body region SNOMED: 472554893 (6) Infection of amputation stump, right lower extremity ICD Codes: T87.43 - Infection of amputation stump, right lower extremity SNOMED: 249192593, 741325714 Status: progressing Assessment/Plan: 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 I&d by dr duarte s/p infected wound dehiscence needs snf placement for wound care and iv abx reviewed chart and labs Subjective ROS Limited/Unobtainable: Yes Allergies: Coded Allergies: No Known Allergies (Unverified , 01/04/17) Subjective chronic pain s/p i&d of infected wound and amputation site afebrile reviewed chart and labs needs snf placement Objective Last 24 Hour Vital Signs Date Time Temp Pulse Resp B/P (MAP) Pulse Ox O2 Delivery O2 Flow Rate FiO2 12/29/18 09:00 Room Air 12/29/18 08:00 98.0 65 19 108/66 (80) 96 12/29/18 04:00 97.8 62 20 103/64 (77) 95 12/29/18 00:00 98.2 84 20 108/67 (81) 95 12/28/18 21:00 Room Air 12/28/18 20:00 98.9 83 20 119/71 (87) 94 12/28/18 18:02 98.1 12/28/18 16:00 98.1 85 18 107/64 (78) 94 Intake and Output 12/28/18 12/29/18 18:59 06:59 Intake Total 700 ml 1250 ml Output Total 200 ml 1000 ml Balance 500 ml 250 ml Intake Oral 350 ml IV Total 900 ml Other 700 ml Output Urine Total 200 ml 1000 ml # Voids 5 # Bowel Movements 1 Laboratory Tests 12/29/18 03:55: White Blood Count 4.6L, Red Blood Count 2.48L, Hemoglobin 8.1L, Hematocrit 23.8L , Mean Corpuscular Volume 96, Mean Corpuscular Hemoglobin 32.7H, Mean Corpuscular Hemoglobin Concent 34.0, Red Cell Distribution Width 13.2, Platelet Count 46L, Mean Platelet Volume 10.6H, Neutrophils (%) (Auto) , Lymphocytes (%) (Auto) , Monocytes (%) (Auto) , Eosinophils (%) (Auto) , Basophils (%) (Auto) , Differential Total Cells Counted 100, Neutrophils % (Manual) 79H, Lymphocytes % (Manual) 16L, Monocytes % (Manual) 2, Eosinophils % (Manual) 3, Basophils % ( Manual) 0, Band Neutrophils 0, Platelet Estimate DecreasedL, Platelet Morphology Normal, Red Blood Cell Morphology Normal Height (Feet): 5 Height (Inches): 0.00 Weight (Pounds): 149 Cardiovascular: normal rate Respiratory/Chest: lungs clear Abdomen: soft Rossy Samuel MD Dec 29, 2018 12:25
[2018-12-29 16:00] VITALS: BP 120/70
--- NOTE | 2018-12-29 16:01 | Surgery Progress Note ---
Surgery Progress Note Subjective Additional Comments no acute events exam stable Objective Last 24 Hour Vital Signs Date Time Temp Pulse Resp B/P (MAP) Pulse Ox O2 Delivery O2 Flow Rate FiO2 12/29/18 12:00 98.2 89 18 118/72 (87) 95 12/29/18 09:00 Room Air 12/29/18 08:00 98.0 65 19 108/66 (80) 96 12/29/18 04:00 97.8 62 20 103/64 (77) 95 12/29/18 00:00 98.2 84 20 108/67 (81) 95 12/28/18 21:00 Room Air 12/28/18 20:00 98.9 83 20 119/71 (87) 94 12/28/18 18:02 98.1 I&O Intake and Output 12/28/18 12/29/18 19:00 07:00 Intake Total 775 ml 1175 ml Output Total 200 ml 1000 ml Balance 575 ml 175 ml Intake Oral 350 ml IV Total 75 ml 825 ml Other 700 ml Output Urine Total 200 ml 1000 ml # Voids 5 # Bowel Movements 1 Dressing: dry Wound: clean Drains: wound vac Cardiovascular: RSR Respiratory: clear Abdomen: soft, non-tender, present bowel sounds Extremities: no cyanosis, other Laboratory Tests Test 12/29/18 03:55 White Blood Count 4.6 K/UL (4.8-10.8) L Red Blood Count 2.48 M/UL (4.70-6.10) L Hemoglobin 8.1 G/DL (14.2-18.0) L Hematocrit 23.8 % (42.0-52.0) L Mean Corpuscular Volume 96 FL (80-99) Mean Corpuscular Hemoglobin 32.7 PG (27.0-31.0) H Mean Corpuscular Hemoglobin Concent 34.0 G/DL (32.0-36.0) Red Cell Distribution Width 13.2 % (11.6-14.8) Platelet Count 46 K/UL (150-450) L Mean Platelet Volume 10.6 FL (6.5-10.1) H Neutrophils (%) (Auto) % (45.0-75.0) Lymphocytes (%) (Auto) % (20.0-45.0) Monocytes (%) (Auto) % (1.0-10.0) Eosinophils (%) (Auto) % (0.0-3.0) Basophils (%) (Auto) % (0.0-2.0) Differential Total Cells Counted 100 Neutrophils % (Manual) 79 % (45-75) H Lymphocytes % (Manual) 16 % (20-45) L Monocytes % (Manual) 2 % (1-10) Eosinophils % (Manual) 3 % (0-3) Basophils % (Manual) 0 % (0-2) Band Neutrophils 0 % (0-8) Platelet Estimate Decreased L Platelet Morphology Normal Red Blood Cell Morphology Normal Plan Problems: (1) Amputation stump infection Assessment & Plan: bilateral lower extremity below-knee amputations. On the right side the recent revision flap has dehisced and serous purulent drainage identified with viable sutures and palpable bone. On the left side the flap is intact on the medial aspect there is drainage coming from the wound bed in between the barbara. There is an opening on the lateral aspect approximately 2 cm x 2 cm with unknown depth given its location. We will currently continue with localized wound care as I discussed with the operating orthopedic surgeon about potential management. I discussed with the patient the current findings and the potential necessity for reoperation versus ray amputation. Versus potential salvage. Continue with IV antibiotics s/p debridement by plastic surgery 12/11 wound vac placed today by myself 12/12 d/c planning With follow with local wound care and evaluation We will discuss with orthopedic and medical team Thank you for allowing participate patient's care (2) Sacral decubitus ulcer Assessment & Plan: This is a 88-year-old male with multiple small full- thickness sacral decubitus ulcers. Patient states that he formed because he was laying flat for 15 days at an outside facility. Identified upon admission and initiated care plan. Periwound seems to have prior healing areas as well as acute inflamed areas with full-thickness breakdown approximately 1 cm x 1 cm on the left buttock/sacral cleft and similarly on the right as well. No active drainage. No foul order. Pt presented on admission with keloid scar with hyperpigmentation sacrum from previous pressure injury;confirmed by pt. Dry loose skin noted to R and L sacrum. No open areas noted. Pt denied tenderness when site palpated. Pt resistive to being repositioned on his sides and was educated of potential risks for already compromised skin to breakdown . Pt demonstrated ability to reposition self when cued.Demonstrated to pt on how to utilize side rails to off -lift buttocks and shift weight in bed. Skin lesions noted to R and L scalp. Pt verbalized he has skin cancer and lesions were recently removed. Hypergranular skin lesions also noted to Lateral L thigh. Apply Moisture Barrier Paste to Sacrum. Cover with Optifoam drsg. Change every 3 days and prn. Encourage and assist with repositioning at least every 2hours or as tolerated.Elevate BKA stumps on pillow. Turn every 2 hours. Patient willing and does assist with ensuring that he turns every so often Offload stump pressures with pillow Thank you for allowing me to participate in patient's care will follow with recommendations (3) Postoperative wound closure planning (4) Stump injury Assessment & Plan: s/p debridement by plastic surgery 12/11 wound vac placed today by myself 12/12 d/c planning plan for VAC upon discharge to SNF NPWT R BKA changed to today. Wound resolving(L)2.1cm x (W)5.2cm x (D)0.3cm. [place] granulation at base of wound .Edges flat and adherent to base of wound. Periwound is intact.No odor noted. 20ml serous exudate noted in canister. Wound cleansed with Saline. Cavilon Skin Barrier applied periwound then covered with transparent drape. Granulofoam cut to conform to wound. Additional granulofoam cut to accommodate Sensor trac pad. Covered with transparent drsg. NPWT resumed @125mm/Hg to continuous suction. Pt tolerated procedure well. Wounds L BKA wound medial aspect of L BKA hypergranular, oozing small amt of non -odorous serous exudate. Periwound without erythema or induration. Wound urvashi L BKA hypergranular ,oozing small amt of non-odorous serous exudate . Periwound without erythema or induration. Application of Silver Nitrate sticks applied to both woundsfor hypergranulation. Both wounds covered with Gauze then ABD pad and wrapped with Kerlix. Pt denied pain L BKA. Findings: X-ray better demonstrates signs of recent surgery with surgical clips barbara at the site of a below the knee amputation. The cortical margin at the tibial stump appears intact both on x-ray and MRI. MRI examination does demonstrate bone marrow edema in the anterior inferior aspect of the tibial stump. Adjacent soft tissue swelling is present. Given recent surgery the soft tissue changes are expected. The bone marrow edema could be reactive marrow edema or due to osteomyelitis. Suspect the former. Similar signal alteration noted within the left tibial stump (left lower extremity partially imaged on this study on the transcoronal sequences). thank you (5) Infection of amputation stump, right lower extremity Assessment & Plan: much improved d/c planning cont vac on d/c Jaiden Teresa Dec 29, 2018 16:01
--- NOTE | 2018-12-29 16:09 | Infectious Diseases Prog Note ---
Assessment/Plan Assessment/Plan IMPRESSION: 1. Amputation stump infection, more in the right side. - cultures; MRSA, Enterococcus ( VRE & Proteus - bone biopsy, like acute osteomyelitis 2 wound dehiscence of right amputation stump. 3. Anemia. 4. Hypothyroidism. 5. History of melanoma. 6. thrombocytopenia worse RECOMMENDATIONS: 1. We will continue with Levaquin & PO Zyvox X 19 days 2. Waiting for placement 3. check UA & urine culture 3. Repeat CBC in am Subjective ROS Limited/Unobtainable: No Genitourinary: Reports: dysuria Musculoskeletal: Reports: pain Allergies: Coded Allergies: No Known Allergies (Unverified , 01/04/17) Objective Vital Signs Last 24 Hour Vital Signs Date Time Temp Pulse Resp B/P (MAP) Pulse Ox O2 Delivery O2 Flow Rate FiO2 12/29/18 12:00 98.2 89 18 118/72 (87) 95 12/29/18 09:00 Room Air 12/29/18 08:00 98.0 65 19 108/66 (80) 96 12/29/18 04:00 97.8 62 20 103/64 (77) 95 12/29/18 00:00 98.2 84 20 108/67 (81) 95 12/28/18 21:00 Room Air 12/28/18 20:00 98.9 83 20 119/71 (87) 94 12/28/18 18:02 98.1 Height (Feet): 5 Height (Inches): 0.00 Weight (Pounds): 149 HEENT: mucous membranes moist Respiratory/Chest: lungs clear Cardiovascular: normal rate Abdomen: soft, non tender Extremities: no edema, other - Biltatral BKA Skin: ulcers, other - R stump wound-vac Neurologic/Psychiatric: alert, oriented x 3, responsive Laboratory Tests Test 12/29/18 03:55 White Blood Count 4.6 K/UL (4.8-10.8) L Red Blood Count 2.48 M/UL (4.70-6.10) L Hemoglobin 8.1 G/DL (14.2-18.0) L Hematocrit 23.8 % (42.0-52.0) L Mean Corpuscular Volume 96 FL (80-99) Mean Corpuscular Hemoglobin 32.7 PG (27.0-31.0) H Mean Corpuscular Hemoglobin Concent 34.0 G/DL (32.0-36.0) Red Cell Distribution Width 13.2 % (11.6-14.8) Platelet Count 46 K/UL (150-450) L Mean Platelet Volume 10.6 FL (6.5-10.1) H Neutrophils (%) (Auto) % (45.0-75.0) Lymphocytes (%) (Auto) % (20.0-45.0) Monocytes (%) (Auto) % (1.0-10.0) Eosinophils (%) (Auto) % (0.0-3.0) Basophils (%) (Auto) % (0.0-2.0) Differential Total Cells Counted 100 Neutrophils % (Manual) 79 % (45-75) H Lymphocytes % (Manual) 16 % (20-45) L Monocytes % (Manual) 2 % (1-10) Eosinophils % (Manual) 3 % (0-3) Basophils % (Manual) 0 % (0-2) Band Neutrophils 0 % (0-8) Platelet Estimate Decreased L Platelet Morphology Normal Red Blood Cell Morphology Normal Current Medications Medications (Trade) Dose Ordered Sig/Trever Route PRN Reason Start Time Stop Time Status Last Admin Dose Admin Acetaminophen (Tylenol) 500 mg Q8H PRN ORAL Moderate Pain (Pain Scale 4-6) 12/05/18 23:15 01/04/19 23:14 Acetaminophen (Tylenol) 650 mg Q4H PRN ORAL Mild Pain/Temp > 100.5 12/05/18 23:15 01/04/19 23:14 Al Hydroxide/Mg Hydroxide (Mylanta II) 10 ml Q4H PRN ORAL indegestion 12/05/18 23:15 01/04/19 23:14 Bisacodyl (Dulcolax) 10 mg DAILYPRN PRN RECTAL Constipation 12/05/18 23:15 01/04/19 23:14 Chlorhexidine Gluconate (Sammie-Hex 2%) 1 applic DAILY@2000 TOPIC 12/06/18 20:00 01/05/19 19:59 12/28/18 20:05 Hydromorphone HCl (Dilaudid) 2 mg Q3H PRN IVP Severe Pain (Pain Scale 7-10) 12/27/18 08:40 01/03/19 08:39 12/29/18 16:01 Levofloxacin (Levaquin) 250 mg DAILY ORAL 12/23/18 09:00 01/16/19 23:59 12/29/18 09:45 Levothyroxine Sodium (Synthroid) 200 mcg DAILY@0630 ORAL 12/06/18 06:30 01/05/19 06:29 12/29/18 06:33 Linezolid (Zyvox) 600 mg EVERY 12 HOURS ORAL 12/22/18 21:00 01/16/19 23:59 12/29/18 09:45 Magnesium Hydroxide (Mom) 30 ml DAILYPRN PRN ORAL Constipation 12/05/18 23:15 01/04/19 23:14 12/27/18 06:12 Naloxone HCl (Narcan) 0.2 mg Q2M PRN IVP RESPRITORY DEPRESSION 12/29/18 08:30 01/28/19 08:29 Pantoprazole (Protonix) 40 mg DAILY ORAL 12/06/18 09:00 01/05/19 08:59 12/11/18 10:00 Sennosides (Senokot) 17.2 mg BEDTIME ORAL 12/06/18 21:00 01/05/19 20:59 12/28/18 21:03 Sodium Chloride 1,000 ml @ 75 mls/hr [id number] IV 12/10/18 09:45 01/09/19 09:44 12/29/18 06:33 Temazepam (Restoril) 15 mg HSPRN PRN ORAL Insomnia 12/28/18 03:00 01/04/19 02:59 12/29/18 01:56 Temazepam (Restoril) 30 mg HSPRN PRN ORAL Insomnia 12/28/18 03:00 01/04/19 02:59 12/28/18 20:05 Partha Obrien MD Dec 29, 2018 16:09
[2018-12-29 20:00] VITALS: BP 113/65
[2018-12-29 20:15] LABS: APPEARANCE,URINE CLEAR; BILIRUBIN, URINE NEGATIVE (NEGATIVE); COLOR,URINE PALE YELLOW; GLUCOSE, URINE (UA) NEGATIVE (NEGATIVE); KETONES,URINE 1+ (NEGATIVE); LEUKOCYTE ESTERASE ,URINE NEGATIVE (NEGATIVE); NITRITE,URINE NEGATIVE (NEGATIVE); PH,URINE 6 (4.5-8.0); PROTEIN,URINE NEGATIVE (NEGATIVE); UROBILINOGEN,URINE NORMAL MG/DL (0.0-1.0)
[2018-12-29] MEDS: Sennosides 8.6mg tab ORAL SCH (21:00)
[2018-12-29] MEDS: Dyna-Hex 2% Top Sol 2oz TOPIC SCH (21:07)
[2018-12-30 04:00] VITALS: BP 102/67
[2018-12-30 08:00] VITALS: BP 113/71
[2018-12-30 12:00] VITALS: BP 120/68
--- NOTE | 2018-12-30 12:35 | Surgery Progress Note ---
Surgery Progress Note Subjective Symptoms: improved, tolerating diet, passing flatus, BM Objective Last 24 Hour Vital Signs Date Time Temp Pulse Resp B/P (MAP) Pulse Ox O2 Delivery O2 Flow Rate FiO2 12/30/18 09:00 Room Air 12/30/18 08:00 97.2 77 18 113/71 (85) 96 12/30/18 04:00 98.2 82 19 102/67 (79) 98 12/29/18 21:00 Room Air 12/29/18 20:00 99.1 93 19 113/65 (81) 95 12/29/18 16:00 98.3 91 18 120/70 (87) 96 I&O Intake and Output 12/29/18 12/30/18 18:59 06:59 Intake Total 2245 ml 5340 ml Output Total 1850 ml Balance 2245 ml 3490 ml Intake Oral 1420 ml 2840 ml IV Total 825 ml 1100 ml Other 1400 ml Output Urine Total 1800 ml Drainage Total 20 ml Estimated Blood Loss 30 ml # Voids 6 8 # Bowel Movements 5 10 Dressing: dry Wound: clean Drains: wound vac Cardiovascular: RSR Respiratory: clear Abdomen: soft, flat, non-tender, present bowel sounds Extremities: no edema, no tenderness, no cyanosis, other Laboratory Tests Test 12/29/18 17:45 Urine Color Pale yellow Urine Appearance Clear Urine pH 6 (4.5-8.0) Urine Specific [place] 1.015 (1.005-1.035) Urine Protein Negative (NEGATIVE) Urine Glucose (UA) Negative (NEGATIVE) Urine Ketones 1+ (NEGATIVE) H Urine Blood 1+ (NEGATIVE) H Urine Nitrite Negative (NEGATIVE) Urine Bilirubin Negative (NEGATIVE) Urine Urobilinogen Normal MG/DL (0.0-1.0) Urine Leukocyte Esterase Negative (NEGATIVE) Urine RBC 5-10 /HPF (0 - 0) H Urine WBC 0-2 /HPF (0 - 0) Urine Squamous Epithelial Cells Occasional /LPF Urine Bacteria Few /HPF (NONE) Urine Yeast Moderate /HPF (NONE) H Plan Problems: (1) Amputation stump infection Assessment & Plan: bilateral lower extremity below-knee amputations. On the right side the recent revision flap has dehisced and serous purulent drainage identified with viable sutures and palpable bone. On the left side the flap is intact on the medial aspect there is drainage coming from the wound bed in between the barbara. There is an opening on the lateral aspect approximately 2 cm x 2 cm with unknown depth given its location. We will currently continue with localized wound care as I discussed with the operating orthopedic surgeon about potential management. I discussed with the patient the current findings and the potential necessity for reoperation versus ray amputation. Versus potential salvage. Continue with IV antibiotics s/p debridement by plastic surgery 12/11 wound vac placed today by myself 12/12 d/c planning With follow with local wound care and evaluation We will discuss with orthopedic and medical team Thank you for allowing participate patient's care (2) Sacral decubitus ulcer Assessment & Plan: This is a 88-year-old male with multiple small full- thickness sacral decubitus ulcers. Patient states that he formed because he was laying flat for 15 days at an outside facility. Identified upon admission and initiated care plan. Periwound seems to have prior healing areas as well as acute inflamed areas with full-thickness breakdown approximately 1 cm x 1 cm on the left buttock/sacral cleft and similarly on the right as well. No active drainage. No foul order. Pt presented on admission with keloid scar with hyperpigmentation sacrum from previous pressure injury;confirmed by pt. Dry loose skin noted to R and L sacrum. No open areas noted. Pt denied tenderness when site palpated. Pt resistive to being repositioned on his sides and was educated of potential risks for already compromised skin to breakdown . Pt demonstrated ability to reposition self when cued.Demonstrated to pt on how to utilize side rails to off -lift buttocks and shift weight in bed. Skin lesions noted to R and L scalp. Pt verbalized he has skin cancer and lesions were recently removed. Hypergranular skin lesions also noted to Lateral L thigh. Apply Moisture Barrier Paste to Sacrum. Cover with Optifoam drsg. Change every 3 days and prn. Encourage and assist with repositioning at least every 2hours or as tolerated.Elevate BKA stumps on pillow. Turn every 2 hours. Patient willing and does assist with ensuring that he turns every so often Offload stump pressures with pillow Thank you for allowing me to participate in patient's care will follow with recommendations (3) Postoperative wound closure planning (4) Stump injury Assessment & Plan: s/p debridement by plastic surgery 12/11 wound vac placed today by myself 12/12 d/c planning plan for VAC upon discharge to SNF NPWT R BKA changed to today. Wound resolving(L)2.1cm x (W)5.2cm x (D)0.3cm. [place] granulation at base of wound .Edges flat and adherent to base of wound. Periwound is intact.No odor noted. 20ml serous exudate noted in canister. Wound cleansed with Saline. [place] Skin Barrier applied periwound then covered with transparent drape. Granulofoam cut to conform to wound. Additional granulofoam cut to accommodate Sensor trac pad. Covered with transparent drsg. NPWT resumed @125mm/Hg to continuous suction. Pt tolerated procedure well. Wounds L BKA wound medial aspect of L BKA hypergranular, oozing small amt of non -odorous serous exudate. Periwound without erythema or induration. Wound urvashi L BKA hypergranular ,oozing small amt of non-odorous serous exudate . Periwound without erythema or induration. Application of Silver Nitrate sticks applied to both woundsfor hypergranulation. Both wounds covered with Gauze then ABD pad and wrapped with Kerlix. Pt denied pain L BKA. Findings: X-ray better demonstrates signs of recent surgery with surgical clips barbara at the site of a below the knee amputation. The cortical margin at the tibial stump appears intact both on x-ray and MRI. MRI examination does demonstrate bone marrow edema in the anterior inferior aspect of the tibial stump. Adjacent soft tissue swelling is present. Given recent surgery the soft tissue changes are expected. The bone marrow edema could be reactive marrow edema or due to osteomyelitis. Suspect the former. Similar signal alteration noted within the left tibial stump (left lower extremity partially imaged on this study on the transcoronal sequences). thank you (5) Infection of amputation stump, right lower extremity Assessment & Plan: much improved d/c planning cont vac on d/c Jaiden Teresa Dec 30, 2018 12:35
--- NOTE | 2018-12-30 14:06 | Infectious Diseases Prog Note ---
Assessment/Plan Assessment/Plan IMPRESSION: 1. Amputation stump infection, more in the right side. - cultures; MRSA, Enterococcus ( VRE & Proteus - bone biopsy, like acute osteomyelitis 2 wound dehiscence of right amputation stump. 3. Anemia. 4. Hypothyroidism. 5. History of melanoma. 6. thrombocytopenia worse 10.Dysuria RECOMMENDATIONS: 1. We will continue with Levaquin & PO Zyvox X 19 days 2. Waiting for placement 3. start on Flomax 3. Repeat CBC Subjective ROS Limited/Unobtainable: No Constitutional: Reports: no symptoms Respiratory: Reports: no symptoms Gastrointestinal/Abdominal: Reports: no symptoms Genitourinary: Reports: dysuria Allergies: Coded Allergies: No Known Allergies (Unverified , 01/04/17) Objective Vital Signs Last 24 Hour Vital Signs Date Time Temp Pulse Resp B/P (MAP) Pulse Ox O2 Delivery O2 Flow Rate FiO2 12/30/18 09:00 Room Air 12/30/18 08:00 97.2 77 18 113/71 (85) 96 12/30/18 04:00 98.2 82 19 102/67 (79) 98 12/29/18 21:00 Room Air 12/29/18 20:00 99.1 93 19 113/65 (81) 95 12/29/18 16:00 98.3 91 18 120/70 (87) 96 Height (Feet): 5 Height (Inches): 0.00 Weight (Pounds): 149 General Appearance: no acute distress HEENT: mucous membranes moist Respiratory/Chest: lungs clear Cardiovascular: normal rate Abdomen: soft, non tender Extremities: other - bilateral BKA Skin: ulcers, other - R stump wound-vac Neurologic/Psychiatric: alert, oriented x 3, responsive Microbiology Date/Time Source Procedure Growth Status 12/29/18 17:45 Urine,Clean Catch Urine Culture - Preliminary NO GROWTH Resulted Laboratory Tests Test 12/29/18 17:45 Urine Color Pale yellow Urine Appearance Clear Urine pH 6 (4.5-8.0) Urine Specific [place] 1.015 (1.005-1.035) Urine Protein Negative (NEGATIVE) Urine Glucose (UA) Negative (NEGATIVE) Urine Ketones 1+ (NEGATIVE) H Urine Blood 1+ (NEGATIVE) H Urine Nitrite Negative (NEGATIVE) Urine Bilirubin Negative (NEGATIVE) Urine Urobilinogen Normal MG/DL (0.0-1.0) Urine Leukocyte Esterase Negative (NEGATIVE) Urine RBC 5-10 /HPF (0 - 0) H Urine WBC 0-2 /HPF (0 - 0) Urine Squamous Epithelial Cells Occasional /LPF Urine Bacteria Few /HPF (NONE) Urine Yeast Moderate /HPF (NONE) H Current Medications Medications (Trade) Dose Ordered Sig/Trever Route PRN Reason Start Time Stop Time Status Last Admin Dose Admin Acetaminophen (Tylenol) 500 mg Q8H PRN ORAL Moderate Pain (Pain Scale 4-6) 12/05/18 23:15 01/04/19 23:14 Acetaminophen (Tylenol) 650 mg Q4H PRN ORAL Mild Pain/Temp > 100.5 12/05/18 23:15 01/04/19 23:14 Al Hydroxide/Mg Hydroxide (Mylanta II) 10 ml Q4H PRN ORAL indegestion 12/05/18 23:15 01/04/19 23:14 Bisacodyl (Dulcolax) 10 mg DAILYPRN PRN RECTAL Constipation 12/05/18 23:15 01/04/19 23:14 Chlorhexidine Gluconate (Sammie-Hex 2%) 1 applic DAILY@1999 TOPIC 12/06/18 20:00 01/05/19 19:59 12/29/18 21:07 Hydromorphone HCl (Dilaudid) 2 mg Q3H PRN IVP Severe Pain (Pain Scale 7-10) 12/27/18 08:40 01/03/19 08:39 12/30/18 11:07 Levofloxacin (Levaquin) 250 mg DAILY ORAL 12/23/18 09:00 01/16/19 23:59 12/30/18 09:09 Levothyroxine Sodium (Synthroid) 200 mcg DAILY@0630 ORAL 12/06/18 06:30 01/05/19 06:29 12/30/18 06:51 Linezolid (Zyvox) 600 mg EVERY 12 HOURS ORAL 12/22/18 21:00 01/16/19 23:59 12/30/18 09:08 Magnesium Hydroxide (Mom) 30 ml DAILYPRN PRN ORAL Constipation 12/05/18 23:15 01/04/19 23:14 12/27/18 06:12 Naloxone HCl (Narcan) 0.2 mg Q2M PRN IVP RESPRITORY DEPRESSION 12/29/18 08:30 01/28/19 08:29 Pantoprazole (Protonix) 40 mg DAILY ORAL 12/06/18 09:00 01/05/19 08:59 12/11/18 10:00 Sennosides (Senokot) 17.2 mg BEDTIME ORAL 12/06/18 21:00 01/05/19 20:59 12/28/18 21:03 Sodium Chloride 1,000 ml @ 75 mls/hr [id number] IV 12/10/18 09:45 01/09/19 09:44 12/30/18 09:52 Temazepam (Restoril) 15 mg HSPRN PRN ORAL Insomnia 12/28/18 03:00 01/04/19 02:59 12/29/18 23:17 Temazepam (Restoril) 30 mg HSPRN PRN ORAL Insomnia 12/28/18 03:00 01/04/19 02:59 12/29/18 21:08 Partha Obrien MD Dec 30, 2018 14:06
[2018-12-30 16:00] VITALS: BP 115/52
--- NOTE | 2018-12-30 16:55 | Hematology/Onc Progress Note ---
Assessment/Plan Assessment/Plan IMPRESSION/RECS: # Anemia due to underlying iron deficiency, r/o gi bleed - also with multifactorial component --> anemia panel reviewed and noted with Iron def --> has been started on iv iron x 5 day course --> hgb transfuse if hgb lower than 7 --> hgb trend 10.6-->10.1-->9.9-->9.3-->10.7-->8.1 --> HOLDING OFF LABS q3 days --> occult ++, dw pcp, outpatient w/u with gi # Thrombocytopenia potentially due to meds (LINEZOLID) versus other culprit --> plt trend 117-->148k-->46 --> hepatitis and hiv refusing labs --> imaging abd reviewed --> meds reviewed, consider abx as per id care # History of melanoma. --> currently in remission # Amputation stump infection, more in the right side. Appears likely osteo --> on cefepime/vanc--> leva/vanc x 34 d --> as per id recs --> surg, pod recs # Wound dehiscence of right amputation stump. --> eval with surg, pod # Hypothyroidism. --> started on synthroid # Dvt ppx lovenox sq since mostly nonambulatory Time of note does not necessarily correspond to when patient seen Greatly appreciate consultation. Subjective HEENT: Denies: no symptoms, eye pain, blurred vision, tearing, double vision, ear pain, ear discharge, nose pain, nose congestion, throat pain, throat swelling, mouth pain, mouth swelling, other Cardiovascular: Denies: no symptoms, chest pain, edema, irregular heart rate, lightheadedness, palpitations, syncope, other Respiratory: Denies: no symptoms, cough, shortness of breath, SOB with excertion, SOB at rest, sputum, wheezing, other Gastrointestinal/Abdominal: Denies: no symptoms, abdomen distended, abdominal pain, black stools, tarry stools, blood in stool, constipated, diarrhea, difficulty swallowing, nausea, poor appetite, poor fluid intake, rectal bleeding , vomiting, other Genitourinary: Denies: no symptoms, burning, discharge, frequency, flank pain, hematuria, incontinence, pain, urgency, other Neurologic/Psychiatric: Denies: no symptoms, anxiety, depressed, emotional problems, headache, numbness, paresthesia, pre-existing deficit, seizure, tingling, tremors, weakness, other Endocrine: Denies: no symptoms, excessive sweating, flushing, intolerance to cold, intolerance to heat, increased hunger, increased thirst, increased urine, unexplained weight gain, unexplained weight loss, other Allergies: Coded Allergies: No Known Allergies (Unverified , 01/04/17) Subjective 12/09: no events, remains on abx, has been started on iv iron, hgb 9.9 12/11: s/p right leg wound debridement, cultures pending 12/12: vs stable, on abx, cultures noted, bleeding noted on dressing 12/13: no bleeding or chills, labs reviewed, no major night sweats 12/14: no events, no bleeding, wants to take off wound vac and take a shower, no f 12/15: no f/c, vs stable, no bleeding, no acute events, meds reviewed 12/17: leg pain, 06/11, refusing labs currently, no f/c, no bleeding 12/18: no changes, no bleeding, wound better 12/19: refusing labs, pain less today, laying flat 12/20: complaining with rn has had too many blood draws 12/21: no bleeding, chills or night sweats, no major changes 12/22: complaining of some pain, does not want any further lab draws 12/23: no bleeding, no night sweats, no major changes, right stump pain 12/25; refusing care, seen by id, no major changes, no bleeding 12/26: piccline in place, no events, doesn't want am lab draws 12/27: awake and alert, no acute events, afebrile 12/28: no events to report o/n, is on levaquin and zyvox x 20 days, no bleeding 12/29: no acute events, c/o pain, h/h stable, repeat cbc tomorrow 12/30: berating staff this am, does not want to draw blood, even though hgb 8.1 Objective Objective Current Medications Medications (Trade) Dose Ordered Sig/Trever Route PRN Reason Start Time Stop Time Status Last Admin Dose Admin Acetaminophen (Tylenol) 500 mg Q8H PRN ORAL Moderate Pain (Pain Scale 4-6) 12/05/18 23:15 01/04/19 23:14 Acetaminophen (Tylenol) 650 mg Q4H PRN ORAL Mild Pain/Temp > 100.5 12/05/18 23:15 01/04/19 23:14 Al Hydroxide/Mg Hydroxide (Mylanta II) 10 ml Q4H PRN ORAL indegestion 12/05/18 23:15 01/04/19 23:14 Bisacodyl (Dulcolax) 10 mg DAILYPRN PRN RECTAL Constipation 12/05/18 23:15 01/04/19 23:14 Chlorhexidine Gluconate (Sammie-Hex 2%) 1 applic DAILY@2000 TOPIC 12/06/18 20:00 01/05/19 19:59 12/29/18 21:07 Hydromorphone HCl (Dilaudid) 2 mg Q3H PRN IVP Severe Pain (Pain Scale 7-10) 12/27/18 08:40 01/03/19 08:39 12/30/18 15:13 Levofloxacin (Levaquin) 250 mg DAILY ORAL 12/23/18 09:00 01/16/19 23:59 12/30/18 09:09 Levothyroxine Sodium (Synthroid) 200 mcg DAILY@0630 ORAL 12/06/18 06:30 01/05/19 06:29 12/30/18 06:51 Linezolid (Zyvox) 600 mg EVERY 12 HOURS ORAL 12/22/18 21:00 01/16/19 23:59 12/30/18 09:08 Magnesium Hydroxide (Mom) 30 ml DAILYPRN PRN ORAL Constipation 12/05/18 23:15 01/04/19 23:14 12/27/18 06:12 Naloxone HCl (Narcan) 0.2 mg Q2M PRN IVP RESPRITORY DEPRESSION 12/29/18 08:30 01/28/19 08:29 Pantoprazole (Protonix) 40 mg DAILY ORAL 12/06/18 09:00 01/05/19 08:59 12/11/18 10:00 Sennosides (Senokot) 17.2 mg BEDTIME ORAL 12/06/18 21:00 01/05/19 20:59 12/28/18 21:03 Sodium Chloride 1,000 ml @ 75 mls/hr [id number] IV 12/10/18 09:45 01/09/19 09:44 12/30/18 09:52 Tamsulosin HCl (Flomax) 0.4 mg BEDTIME ORAL 12/30/18 21:00 01/29/19 20:59 Temazepam (Restoril) 15 mg HSPRN PRN ORAL Insomnia 12/28/18 03:00 01/04/19 02:59 12/29/18 23:17 Temazepam (Restoril) 30 mg HSPRN PRN ORAL Insomnia 12/28/18 03:00 01/04/19 02:59 12/29/18 21:08 Last 24 Hour Vital Signs Date Time Temp Pulse Resp B/P (MAP) Pulse Ox O2 Delivery O2 Flow Rate FiO2 12/30/18 12:00 97.7 80 20 120/68 (85) 98 12/30/18 09:00 Room Air 12/30/18 08:00 97.2 77 18 113/71 (85) 96 12/30/18 04:00 98.2 82 19 102/67 (79) 98 12/29/18 21:00 Room Air 12/29/18 20:00 99.1 93 19 113/65 (81) 95 12/29/18 16:00 98.3 91 18 120/70 (87) 96 12/29/18 12:00 98.2 89 18 118/72 (87) 95 12/29/18 09:00 Room Air 12/29/18 08:00 98.0 65 19 108/66 (80) 96 12/29/18 04:00 97.8 62 20 103/64 (77) 95 12/29/18 00:00 98.2 84 20 108/67 (81) 95 12/28/18 21:00 Room Air 12/28/18 20:00 98.9 83 20 119/71 (87) 94 12/28/18 18:02 98.1 Intake and Output 12/29/18 12/30/18 19:00 07:00 Intake Total 2320 ml 5340 ml Output Total 1850 ml Balance 2320 ml 3490 ml Intake Oral 1420 ml 2840 ml IV Total 900 ml 1100 ml Other 1400 ml Output Urine Total 1800 ml Drainage Total 20 ml Estimated Blood Loss 30 ml # Voids 6 8 # Bowel Movements 5 10 Labs Test 12/29/18 03:55 12/29/18 17:45 White Blood Count 4.6 K/UL (4.8-10.8) Red Blood Count 2.48 M/UL (4.70-6.10) Hemoglobin 8.1 G/DL (14.2-18.0) Hematocrit 23.8 % (42.0-52.0) Mean Corpuscular Volume 96 FL (80-99) Mean Corpuscular Hemoglobin 32.7 PG (27.0-31.0) Mean Corpuscular Hemoglobin Concent 34.0 G/DL (32.0-36.0) Red Cell Distribution Width 13.2 % (11.6-14.8) Platelet Count 46 K/UL (150-450) Mean Platelet Volume 10.6 FL (6.5-10.1) Neutrophils (%) (Auto) % (45.0-75.0) Lymphocytes (%) (Auto) % (20.0-45.0) Monocytes (%) (Auto) % (1.0-10.0) Eosinophils (%) (Auto) % (0.0-3.0) Basophils (%) (Auto) % (0.0-2.0) Differential Total Cells Counted 100 Neutrophils % (Manual) 79 % (45-75) Lymphocytes % (Manual) 16 % (20-45) Monocytes % (Manual) 2 % (1-10) Eosinophils % (Manual) 3 % (0-3) Basophils % (Manual) 0 % (0-2) Band Neutrophils 0 % (0-8) Platelet Estimate Decreased Platelet Morphology Normal Red Blood Cell Morphology Normal Urine Color Pale yellow Urine Appearance Clear Urine pH 6 (4.5-8.0) Urine Specific [place] 1.015 (1.005-1.035) Urine Protein Negative (NEGATIVE) Urine Glucose (UA) Negative (NEGATIVE) Urine Ketones 1+ (NEGATIVE) Urine Blood 1+ (NEGATIVE) Urine Nitrite Negative (NEGATIVE) Urine Bilirubin Negative (NEGATIVE) Urine Urobilinogen Normal MG/DL (0.0-1.0) Urine Leukocyte Esterase Negative (NEGATIVE) Urine RBC 5-10 /HPF (0 - 0) Urine WBC 0-2 /HPF (0 - 0) Urine Squamous Epithelial Cells Occasional /LPF Urine Bacteria Few /HPF (NONE) Urine Yeast Moderate /HPF (NONE) Micro Microbiology Date/Time Source Procedure Growth Status 12/29/18 17:45 Urine,Clean Catch Urine Culture - Preliminary NO GROWTH Resulted Height (Feet): 5 Height (Inches): 0.00 Weight (Pounds): 149 Objective Vitals: reviewed Gen: Nad Pulm: Ctab CV: rrr, no mgr Abd: soft, nt, nd Ext: b/l bka noted, dressings+, wound vac, picc R++ Oseas Tong MD Dec 30, 2018 16:55
--- NOTE | 2018-12-30 17:44 | General Progress Note ---
Assessment/Plan Problem List: (1) Leg pain ICD Codes: M79.606 - Leg pain SNOMED: 98254928 (2) Anemia ICD Codes: D64.9 - Anemia, unspecified SNOMED: 652217789 (3) Amputation stump infection ICD Codes: T87.40 - Infection of amputation stump, unspecified extremity SNOMED: 214209236 (4) Postoperative wound closure planning ICD Codes: Z48.1 - Encounter for planned postprocedural wound closure SNOMED: 365577316 (5) Stump injury ICD Codes: T14.8 - Other injury of unspecified body region SNOMED: 517891313 (6) Infection of amputation stump, right lower extremity ICD Codes: T87.43 - Infection of amputation stump, right lower extremity SNOMED: 760319857, 836639459 Status: progressing Assessment/Plan: abx per id no fever I&d by dr duarte s/p infected wound dehiscence needs snf placement for wound care and iv abx Subjective ROS Limited/Unobtainable: Yes Allergies: Coded Allergies: No Known Allergies (Unverified , 01/04/17) Subjective chronic pain s/p i&d of infected wound and amputation site afebrile reviewed chart and labs needs snf placement Objective Last 24 Hour Vital Signs Date Time Temp Pulse Resp B/P (MAP) Pulse Ox O2 Delivery O2 Flow Rate FiO2 12/30/18 16:00 97.1 64 20 115/52 (73) 95 12/30/18 12:00 97.7 80 20 120/68 (85) 98 12/30/18 09:00 Room Air 12/30/18 08:00 97.2 77 18 113/71 (85) 96 12/30/18 04:00 98.2 82 19 102/67 (79) 98 12/29/18 21:00 Room Air 12/29/18 20:00 99.1 93 19 113/65 (81) 95 Intake and Output 12/29/18 12/30/18 19:00 07:00 Intake Total 2320 ml 5340 ml Output Total 1850 ml Balance 2320 ml 3490 ml Intake Oral 1420 ml 2840 ml IV Total 900 ml 1100 ml Other 1400 ml Output Urine Total 1800 ml Drainage Total 20 ml Estimated Blood Loss 30 ml # Voids 6 8 # Bowel Movements 5 10 Laboratory Tests 12/29/18 17:45: Urine Color Pale yellow, Urine Appearance Clear, Urine pH 6, Urine Specific [place] 1.015, Urine Protein Negative, Urine Glucose (UA) Negative, Urine Ketones 1+H, Urine Blood 1+H, Urine Nitrite Negative, Urine Bilirubin Negative, Urine Urobilinogen Normal, Urine Leukocyte Esterase Negative, Urine RBC 5-10H, Urine WBC 0-2, Urine Squamous Epithelial Cells Occasional, Urine Bacteria Few, Urine Yeast ModerateH Height (Feet): 5 Height (Inches): 0.00 Weight (Pounds): 149 Cardiovascular: regular rhythm Respiratory/Chest: lungs clear Abdomen: non tender Rossy Samuel MD Dec 30, 2018 17:44
[2018-12-30 20:00] VITALS: BP 121/68
[2018-12-30 20:06] LABS: HEMATOCRIT 23.4 % (42.0-52.0); HEMOGLOBIN 8.2 G/DL (14.2-18.0); MEAN CORPUSCULAR VOLUME 95 FL (80-99); PLATELET COUNT 48 K/UL (150-450); RED BLOOD COUNT 2.46 M/UL (4.70-6.10); RED CELL DISTRIBUTION WIDTH 12.6 % (11.6-14.8)
[2018-12-30] MEDS: Sennosides 8.6mg tab ORAL SCH (20:12)
[2018-12-30] MEDS: Tamsulosin 0.4mg cap ORAL SCH (20:13)
[2018-12-30] MEDS: Dyna-Hex 2% Top Sol 2oz TOPIC SCH (20:13)
[2018-12-31] VITALS: BP 107/62
[2018-12-31 08:00] VITALS: BP 110/65
--- NOTE | 2018-12-31 10:25 | Infectious Diseases Prog Note ---
Assessment/Plan Assessment/Plan IMPRESSION: 1. Amputation stump infection, more in the right side. - cultures; MRSA, Enterococcus ( VRE & Proteus - bone biopsy, like acute osteomyelitis 2 wound dehiscence of right amputation stump. 3. Anemia. 4. Hypothyroidism. 5. History of melanoma. 6. thrombocytopenia worse 10.Dysuria, ? UTI RECOMMENDATIONS: 1. We will continue with Levaquin X 17 days 2. change Zyvox to IV Vancomycin & Zosyn Subjective ROS Limited/Unobtainable: No Constitutional: Reports: no symptoms Genitourinary: Reports: dysuria, other - better Musculoskeletal: Reports: pain, other - controlled Allergies: Coded Allergies: No Known Allergies (Unverified , 01/04/17) Objective Vital Signs Last 24 Hour Vital Signs Date Time Temp Pulse Resp B/P (MAP) Pulse Ox O2 Delivery O2 Flow Rate FiO2 12/31/18 09:00 Room Air 12/31/18 08:00 98.0 83 20 110/65 (80) 96 12/31/18 00:00 97.9 81 19 107/62 (77) 95 12/30/18 21:00 Room Air 12/30/18 20:00 98.8 82 19 121/68 (85) 96 12/30/18 16:00 97.1 64 20 115/52 (73) 95 12/30/18 12:00 97.7 80 20 120/68 (85) 98 Height (Feet): 5 Height (Inches): 0.00 Weight (Pounds): 149 General Appearance: no acute distress HEENT: mucous membranes moist Respiratory/Chest: lungs clear Cardiovascular: normal rate Abdomen: soft, non tender Extremities: no edema, other - bilateral BKA Skin: ulcers Neurologic/Psychiatric: alert, oriented x 3, responsive Microbiology Date/Time Source Procedure Growth Status 12/29/18 17:45 Urine,Clean Catch Urine Culture - Preliminary Gram Negative Reinaldo Resulted Laboratory Tests Test 12/30/18 19:01 White Blood Count 5.0 K/UL (4.8-10.8) Red Blood Count 2.46 M/UL (4.70-6.10) L Hemoglobin 8.2 G/DL (14.2-18.0) L Hematocrit 23.4 % (42.0-52.0) L Mean Corpuscular Volume 95 FL (80-99) Mean Corpuscular Hemoglobin 33.2 PG (27.0-31.0) H Mean Corpuscular Hemoglobin Concent 34.9 G/DL (32.0-36.0) Red Cell Distribution Width 12.6 % (11.6-14.8) Platelet Count 48 K/UL (150-450) L Mean Platelet Volume 9.1 FL (6.5-10.1) Neutrophils (%) (Auto) % (45.0-75.0) Lymphocytes (%) (Auto) % (20.0-45.0) Monocytes (%) (Auto) % (1.0-10.0) Eosinophils (%) (Auto) % (0.0-3.0) Basophils (%) (Auto) % (0.0-2.0) Differential Total Cells Counted 100 Neutrophils % (Manual) 66 % (45-75) Lymphocytes % (Manual) 24 % (20-45) Monocytes % (Manual) 5 % (1-10) Eosinophils % (Manual) 4 % (0-3) H Basophils % (Manual) 0 % (0-2) Band Neutrophils 0 % (0-8) Platelet Estimate Decreased L Platelet Morphology Normal Hypochromasia 1+ Ferritin 194 NG/ML (8-388) Hepatitis A IgM Antibody Pending Hepatitis B Surface Antigen Pending Hepatitis B Core IgM Antibody Pending Hepatitis C Antibody Pending HIV (1&2) Antibody Rapid Negative (NEGATIVE) Current Medications Medications (Trade) Dose Ordered Sig/Trever Route PRN Reason Start Time Stop Time Status Last Admin Dose Admin Acetaminophen (Tylenol) 500 mg Q8H PRN ORAL Moderate Pain (Pain Scale 4-6) 12/05/18 23:15 01/04/19 23:14 Acetaminophen (Tylenol) 650 mg Q4H PRN ORAL Mild Pain/Temp > 100.5 12/05/18 23:15 01/04/19 23:14 Al Hydroxide/Mg Hydroxide (Mylanta II) 10 ml Q4H PRN ORAL indegestion 12/05/18 23:15 01/04/19 23:14 Bisacodyl (Dulcolax) 10 mg DAILYPRN PRN RECTAL Constipation 12/05/18 23:15 01/04/19 23:14 Chlorhexidine Gluconate (Sammie-Hex 2%) 1 applic DAILY@1999 TOPIC 12/06/18 20:00 01/05/19 19:59 12/30/18 20:13 Hydromorphone HCl (Dilaudid) 2 mg Q3H PRN IVP Severe Pain (Pain Scale 7-10) 12/27/18 08:40 01/03/19 08:39 12/31/18 09:33 Levofloxacin (Levaquin) 250 mg DAILY ORAL 12/23/18 09:00 01/16/19 23:59 12/31/18 08:27 Levothyroxine Sodium (Synthroid) 200 mcg DAILY@0630 ORAL 12/06/18 06:30 01/05/19 06:29 12/31/18 06:29 Linezolid (Zyvox) 600 mg EVERY 12 HOURS ORAL 12/22/18 21:00 01/16/19 23:59 12/31/18 08:27 Magnesium Hydroxide (Mom) 30 ml DAILYPRN PRN ORAL Constipation 12/05/18 23:15 01/04/19 23:14 12/27/18 06:12 Naloxone HCl (Narcan) 0.2 mg Q2M PRN IVP RESPRITORY DEPRESSION 12/29/18 08:30 01/28/19 08:29 Pantoprazole (Protonix) 40 mg DAILY ORAL 12/06/18 09:00 01/05/19 08:59 12/31/18 08:27 Sennosides (Senokot) 17.2 mg BEDTIME ORAL 12/06/18 21:00 01/05/19 20:59 12/28/18 21:03 Sodium Chloride 1,000 ml @ 75 mls/hr [id number] IV 12/10/18 09:45 01/09/19 09:44 12/30/18 23:49 Tamsulosin HCl (Flomax) 0.4 mg BEDTIME ORAL 12/30/18 21:00 01/29/19 20:59 12/30/18 20:13 Temazepam (Restoril) 15 mg HSPRN PRN ORAL Insomnia 12/28/18 03:00 01/04/19 02:59 12/30/18 23:48 Temazepam (Restoril) 30 mg HSPRN PRN ORAL Insomnia 12/28/18 03:00 01/04/19 02:59 12/30/18 20:13 Partha Obrien MD Dec 31, 2018 10:25
--- NOTE | 2018-12-31 11:35 | General Progress Note ---
Assessment/Plan Assessment/Plan: (1) B/L BKA (2) B/L stump pain (3) s/p stump revision (4) Phantom limb pain The patient will be continued on Dilaudid. The patient was discussed with Dr. Velasquez and Dr. Velasquez concurred. Subjective Date patient seen: Dec 31, 2018 Time patient seen: 10:45 - am Allergies: Coded Allergies: No Known Allergies (Unverified , 01/04/17) Subjective REVIEW OF SYSTEMS: Denies rash, fever, chills, sweating, dizziness, drowsiness, or change in weight. No shortness of breath or chest pain. No nausea, vomiting, or blood in the stool or urine. No bowel or bladder incontinence. No dysuria. He is complaining of bilateral lower extremity. SUBJECTIVE: Pt is in bed he continues to c/o pain in his b/l BKA. The pain continues to tolerate the pain on the Dilaudid. No new complaints at this time. Objective Last 24 Hour Vital Signs Date Time Temp Pulse Resp B/P (MAP) Pulse Ox O2 Delivery O2 Flow Rate FiO2 12/31/18 10:03 98.0 12/31/18 09:00 Room Air 12/31/18 08:00 98.0 83 20 110/65 (80) 96 12/31/18 00:00 97.9 81 19 107/62 (77) 95 12/30/18 21:00 Room Air 12/30/18 20:00 98.8 82 19 121/68 (85) 96 12/30/18 16:00 97.1 64 20 115/52 (73) 95 12/30/18 12:00 97.7 80 20 120/68 (85) 98 Intake and Output 12/30/18 12/31/18 19:00 07:00 Intake Total 630 ml 1040 ml Output Total 700 ml 925 ml Balance -70 ml 115 ml Intake Oral 480 ml 240 ml IV Total 150 ml 100 ml Other 700 ml Output Urine Total 700 ml 900 ml Drainage Total 10 ml Estimated Blood Loss 15 ml # Voids 2 3 # Bowel Movements 2 1 Laboratory Tests 12/30/18 19:01: White Blood Count 5.0, Red Blood Count 2.46L, Hemoglobin 8.2L, Hematocrit 23.4L , Mean Corpuscular Volume 95, Mean Corpuscular Hemoglobin 33.2H, Mean Corpuscular Hemoglobin Concent 34.9, Red Cell Distribution Width 12.6, Platelet Count 48L, Mean Platelet Volume 9.1, Neutrophils (%) (Auto) , Lymphocytes (%) ( Auto) , Monocytes (%) (Auto) , Eosinophils (%) (Auto) , Basophils (%) (Auto) , Differential Total Cells Counted 100, Neutrophils % (Manual) 66, Lymphocytes % ( Manual) 24, Monocytes % (Manual) 5, Eosinophils % (Manual) 4H, Basophils % ( Manual) 0, Band Neutrophils 0, Platelet Estimate DecreasedL, Platelet Morphology Normal, Hypochromasia 1+, Ferritin 194, Hepatitis A IgM Antibody [ Pending], Hepatitis B Surface Antigen [Pending], Hepatitis B Core IgM Antibody [ Pending], Hepatitis C Antibody [Pending], HIV (1&2) Antibody Rapid Negative Height (Feet): 5 Height (Inches): 0.00 Weight (Pounds): 149 Objective GENERAL: Alert, awake, and oriented x3. LUNGS: Clear. HEART: S1 S2 Regular. ABDOMEN: Benign. EXTREMITIES: Bilateral [id number] amputation noted. wound vac applied to right LE. NEURO: No changes. Hiram Griffin Dec 31, 2018 11:35
[2018-12-31 12:00] VITALS: BP 119/72
[2018-12-31] MEDS: Vancomycin 1gm/D5W 275ml IVPB SCH ×2 (13:28)
--- NOTE | 2018-12-31 15:34 | General Progress Note ---
Assessment/Plan Problem List: (1) Leg pain ICD Codes: M79.606 - Leg pain SNOMED: 52260523 (2) Anemia ICD Codes: D64.9 - Anemia, unspecified SNOMED: 429725203 (3) Amputation stump infection ICD Codes: T87.40 - Infection of amputation stump, unspecified extremity SNOMED: 574301562 (4) Postoperative wound closure planning ICD Codes: Z48.1 - Encounter for planned postprocedural wound closure SNOMED: 271241884 (5) Stump injury ICD Codes: T14.8 - Other injury of unspecified body region SNOMED: 702270425 (6) Infection of amputation stump, right lower extremity ICD Codes: T87.43 - Infection of amputation stump, right lower extremity SNOMED: 873662021, 682786233 Status: progressing Assessment/Plan: no change stable no fever check h/h I&d by dr duarte s/p infected wound dehiscence needs snf placement for wound care and iv abx Subjective ROS Limited/Unobtainable: Yes Allergies: Coded Allergies: No Known Allergies (Unverified , 01/04/17) Subjective chronic pain s/p i&d of infected wound and amputation site afebrile reviewed chart and labs needs snf placement Objective Last 24 Hour Vital Signs Date Time Temp Pulse Resp B/P (MAP) Pulse Ox O2 Delivery O2 Flow Rate FiO2 12/31/18 13:06 97.7 12/31/18 12:00 97.7 90 18 119/72 (88) 97 12/31/18 09:00 Room Air 12/31/18 08:00 98.0 83 20 110/65 (80) 96 12/31/18 00:00 97.9 81 19 107/62 (77) 95 12/30/18 21:00 Room Air 12/30/18 20:00 98.8 82 19 121/68 (85) 96 12/30/18 16:00 97.1 64 20 115/52 (73) 95 Intake and Output 12/30/18 12/31/18 19:00 07:00 Intake Total 630 ml 1115 ml Output Total 700 ml 925 ml Balance -70 ml 190 ml Intake Oral 480 ml 240 ml IV Total 150 ml 175 ml Other 700 ml Output Urine Total 700 ml 900 ml Drainage Total 10 ml Estimated Blood Loss 15 ml # Voids 2 3 # Bowel Movements 2 1 Laboratory Tests 12/30/18 19:01: White Blood Count 5.0, Red Blood Count 2.46L, Hemoglobin 8.2L, Hematocrit 23.4L , Mean Corpuscular Volume 95, Mean Corpuscular Hemoglobin 33.2H, Mean Corpuscular Hemoglobin Concent 34.9, Red Cell Distribution Width 12.6, Platelet Count 48L, Mean Platelet Volume 9.1, Neutrophils (%) (Auto) , Lymphocytes (%) ( Auto) , Monocytes (%) (Auto) , Eosinophils (%) (Auto) , Basophils (%) (Auto) , Differential Total Cells Counted 100, Neutrophils % (Manual) 66, Lymphocytes % ( Manual) 24, Monocytes % (Manual) 5, Eosinophils % (Manual) 4H, Basophils % ( Manual) 0, Band Neutrophils 0, Platelet Estimate DecreasedL, Platelet Morphology Normal, Hypochromasia 1+, Ferritin 194, Hepatitis A IgM Antibody [ Pending], Hepatitis B Surface Antigen [Pending], Hepatitis B Core IgM Antibody [ Pending], Hepatitis C Antibody [Pending], HIV (1&2) Antibody Rapid Negative Height (Feet): 5 Height (Inches): 0.00 Weight (Pounds): 149 Cardiovascular: normal rate Respiratory/Chest: lungs clear Abdomen: soft Rossy Samuel MD Dec 31, 2018 15:34
[2018-12-31] MEDS ORDERED: Tubing IV Secondary IV ONE (15:37)
[2018-12-31] MEDS: Piperacillin/Tazobactam 3.375 GM in NS 110 ML IVPB SCH ×2 (15:39→21:54)
--- NOTE | 2018-12-31 15:46 | Surgery Progress Note ---
Surgery Progress Note Subjective Symptoms: improved, tolerating diet, voiding well, passing flatus, pain decreased Objective Last 24 Hour Vital Signs Date Time Temp Pulse Resp B/P (MAP) Pulse Ox O2 Delivery O2 Flow Rate FiO2 12/31/18 13:06 97.7 12/31/18 12:00 97.7 90 18 119/72 (88) 97 12/31/18 09:00 Room Air 12/31/18 08:00 98.0 83 20 110/65 (80) 96 12/31/18 00:00 97.9 81 19 107/62 (77) 95 12/30/18 21:00 Room Air 12/30/18 20:00 98.8 82 19 121/68 (85) 96 12/30/18 16:00 97.1 64 20 115/52 (73) 95 I&O Intake and Output 12/30/18 12/31/18 19:00 07:00 Intake Total 630 ml 1115 ml Output Total 700 ml 925 ml Balance -70 ml 190 ml Intake Oral 480 ml 240 ml IV Total 150 ml 175 ml Other 700 ml Output Urine Total 700 ml 900 ml Drainage Total 10 ml Estimated Blood Loss 15 ml # Voids 2 3 # Bowel Movements 2 1 Dressing: dry Wound: clean Drains: wound vac Cardiovascular: RSR Respiratory: clear Abdomen: soft, flat, present bowel sounds, non-distended Extremities: edema - Almost completely resolved, no tenderness, no cyanosis Laboratory Tests Test 12/30/18 19:01 White Blood Count 5.0 K/UL (4.8-10.8) Red Blood Count 2.46 M/UL (4.70-6.10) L Hemoglobin 8.2 G/DL (14.2-18.0) L Hematocrit 23.4 % (42.0-52.0) L Mean Corpuscular Volume 95 FL (80-99) Mean Corpuscular Hemoglobin 33.2 PG (27.0-31.0) H Mean Corpuscular Hemoglobin Concent 34.9 G/DL (32.0-36.0) Red Cell Distribution Width 12.6 % (11.6-14.8) Platelet Count 48 K/UL (150-450) L Mean Platelet Volume 9.1 FL (6.5-10.1) Neutrophils (%) (Auto) % (45.0-75.0) Lymphocytes (%) (Auto) % (20.0-45.0) Monocytes (%) (Auto) % (1.0-10.0) Eosinophils (%) (Auto) % (0.0-3.0) Basophils (%) (Auto) % (0.0-2.0) Differential Total Cells Counted 100 Neutrophils % (Manual) 66 % (45-75) Lymphocytes % (Manual) 24 % (20-45) Monocytes % (Manual) 5 % (1-10) Eosinophils % (Manual) 4 % (0-3) H Basophils % (Manual) 0 % (0-2) Band Neutrophils 0 % (0-8) Platelet Estimate Decreased L Platelet Morphology Normal Hypochromasia 1+ Ferritin 194 NG/ML (8-388) Hepatitis A IgM Antibody Pending Hepatitis B Surface Antigen Pending Hepatitis B Core IgM Antibody Pending Hepatitis C Antibody Pending HIV (1&2) Antibody Rapid Negative (NEGATIVE) Plan Problems: (1) Amputation stump infection Assessment & Plan: bilateral lower extremity below-knee amputations. On the right side the recent revision flap has dehisced and serous purulent drainage identified with viable sutures and palpable bone. On the left side the flap is intact on the medial aspect there is drainage coming from the wound bed in between the barbara. There is an opening on the lateral aspect approximately 2 cm x 2 cm with unknown depth given its location. We will currently continue with localized wound care as I discussed with the operating orthopedic surgeon about potential management. I discussed with the patient the current findings and the potential necessity for reoperation versus ray amputation. Versus potential salvage. Continue with IV antibiotics s/p debridement by plastic surgery 12/11 wound vac placed today by myself 12/12 d/c planning With follow with local wound care and evaluation We will discuss with orthopedic and medical team Thank you for allowing participate patient's care (2) Sacral decubitus ulcer Assessment & Plan: This is a 88-year-old male with multiple small full- thickness sacral decubitus ulcers. Patient states that he formed because he was laying flat for 15 days at an outside facility. Identified upon admission and initiated care plan. Periwound seems to have prior healing areas as well as acute inflamed areas with full-thickness breakdown approximately 1 cm x 1 cm on the left buttock/sacral cleft and similarly on the right as well. No active drainage. No foul order. Pt presented on admission with keloid scar with hyperpigmentation sacrum from previous pressure injury;confirmed by pt. Dry loose skin noted to R and L sacrum. No open areas noted. Pt denied tenderness when site palpated. Pt resistive to being repositioned on his sides and was educated of potential risks for already compromised skin to breakdown . Pt demonstrated ability to reposition self when cued.Demonstrated to pt on how to utilize side rails to off -lift buttocks and shift weight in bed. Skin lesions noted to R and L scalp. Pt verbalized he has skin cancer and lesions were recently removed. Hypergranular skin lesions also noted to Lateral L thigh. Apply Moisture Barrier Paste to Sacrum. Cover with Optifoam drsg. Change every 3 days and prn. Encourage and assist with repositioning at least every 2hours or as tolerated.Elevate BKA stumps on pillow. Turn every 2 hours. Patient willing and does assist with ensuring that he turns every so often Offload stump pressures with pillow Thank you for allowing me to participate in patient's care will follow with recommendations (3) Postoperative wound closure planning (4) Stump injury Assessment & Plan: s/p debridement by plastic surgery 12/11 wound vac placed today by myself 12/12 d/c planning plan for VAC upon discharge to SNF NPWT R BKA changed to today. Wound resolving(L)2.1cm x (W)5.2cm x (D)0.3cm. [place] granulation at base of wound .Edges flat and adherent to base of wound. Periwound is intact.No odor noted. 20ml serous exudate noted in canister. Wound cleansed with Saline. Cavilon Skin Barrier applied periwound then covered with transparent drape. Granulofoam cut to conform to wound. Additional granulofoam cut to accommodate Sensor trac pad. Covered with transparent drsg. NPWT resumed @125mm/Hg to continuous suction. Pt tolerated procedure well. Wounds L BKA wound medial aspect of L BKA hypergranular, oozing small amt of non -odorous serous exudate. Periwound without erythema or induration. Wound urvashi L BKA hypergranular ,oozing small amt of non-odorous serous exudate . Periwound without erythema or induration. Application of Silver Nitrate sticks applied to both woundsfor hypergranulation. Both wounds covered with Gauze then ABD pad and wrapped with Kerlix. Pt denied pain L BKA. Findings: X-ray better demonstrates signs of recent surgery with surgical clips barbara at the site of a below the knee amputation. The cortical margin at the tibial stump appears intact both on x-ray and MRI. MRI examination does demonstrate bone marrow edema in the anterior inferior aspect of the tibial stump. Adjacent soft tissue swelling is present. Given recent surgery the soft tissue changes are expected. The bone marrow edema could be reactive marrow edema or due to osteomyelitis. Suspect the former. Similar signal alteration noted within the left tibial stump (left lower extremity partially imaged on this study on the transcoronal sequences). thank you (5) Infection of amputation stump, right lower extremity Assessment & Plan: much improved d/c planning cont vac on d/c Jaiden Teresa Dec 31, 2018 15:46
[2018-12-31 16:00] VITALS: BP 122/74
[2018-12-31] MEDS: Dyna-Hex 2% Top Sol 2oz TOPIC SCH (20:38)
[2018-12-31] MEDS: Tamsulosin 0.4mg cap ORAL SCH (20:38)
[2018-12-31] MEDS: Sennosides 8.6mg tab ORAL SCH (20:39)
[2018-12-31 21:00] VITALS: BP 109/56
[2019-01-01] VITALS (8 sets, daily range): BP systolic 91–133; BP diastolic 48–80
[2019-01-01] MEDS: Piperacillin/Tazobactam 3.375 GM in NS 110 ML IVPB SCH ×3 (06:33→21:04)
[2019-01-01] MEDS: Vancomycin 1gm/D5W 275ml IVPB SCH ×2 (12:31)
--- NOTE | 2019-01-01 13:04 | Plastic Surgery Progress Note ---
Plastic Surgery-Progress Note Subjective Procedure Performed Excisional debridement of right bka stump wound, biopsy of tibia, bone culture. Symptoms: improved Additional Comments Patient with right bka wound s/p debridement. He has been tolerating the wound vac. He also has a couple superficial openings on the left bka incision. No new complaints. Objective Last 24 Hour Vital Signs Date Time Temp Pulse Resp B/P (MAP) Pulse Ox O2 Delivery O2 Flow Rate FiO2 01/01/19 10:05 99.1 01/01/19 09:00 Room Air 01/01/19 08:00 97.9 85 16 125/80 (95) 98 01/01/19 04:00 99.1 99 18 124/60 (81) 98 01/01/19 00:00 99.8 105 18 133/80 (97) 95 12/31/18 21:00 Room Air 12/31/18 21:00 99.0 90 19 109/56 (73) 95 12/31/18 16:00 98.0 88 18 122/74 (90) 98 I&O Intake and Output 12/31/18 01/01/19 19:00 07:00 Intake Total 2325.000 ml 485.0 ml Output Total 200 ml Balance 2325.000 ml 285.0 ml Intake Oral 1600 ml IV Total 725.000 ml 485.0 ml Output Urine Total 200 ml # Voids 8 1 Wound: other - Right bka wound smaller. Fibrotice debris at the base. No erythema or warmth. Left knee ulcers superficial with clean granular base. Assessment Post-op Diagnosis same Plan Additional Comments Sharp debridement performed of the right bka wound down to muscle at the bedside. Patient tolerated well. Will place wound vac on this. Dry dressing on the left and change qm/w/f. Await snf placement. Andrew Roldan MD Jan 01, 2019 13:04
--- NOTE | 2019-01-01 13:46 | Hematology/Onc Progress Note ---
Assessment/Plan Assessment/Plan IMPRESSION/RECS: # Anemia due to underlying iron deficiency, r/o gi bleed - also with multifactorial component --> anemia panel reviewed and noted with Iron def --> has been started on iv iron x 5 day course --> hgb transfuse if hgb lower than 7 --> hgb trend 10.6-->10.1-->9.9-->9.3-->10.7-->8.1->8.2 --> HOLDING OFF LABS q3 days --> occult ++, dw pcp, outpatient w/u with gi # Thrombocytopenia potentially due to meds (LINEZOLID) versus other culprit --> plt trend 117-->148k-->46-->48 --> heiv negative, hepatitis pending --> imaging abd reviewed --> meds reviewed, consider abx as per id care # History of melanoma. --> currently in remission # Amputation stump infection, BKA +++, more on right side --> on cefepime/vanc--> leva/vanc x 34 d--> zosyn, vanc, levaquin --> as per id recs --> surg, pod recs # Wound dehiscence of right amputation stump. --> eval with surg, pod # Hypothyroidism. --> started on synthroid # Dvt ppx lovenox sq since mostly nonambulatory Time of note does not necessarily correspond to when patient seen Greatly appreciate consultation. Subjective Respiratory: Denies: no symptoms, cough, shortness of breath, SOB with excertion, SOB at rest, sputum, wheezing, other Gastrointestinal/Abdominal: Denies: no symptoms, abdomen distended, abdominal pain, black stools, tarry stools, blood in stool, constipated, diarrhea, difficulty swallowing, nausea, poor appetite, poor fluid intake, rectal bleeding , vomiting, other Genitourinary: Denies: no symptoms, burning, discharge, frequency, flank pain, hematuria, incontinence, pain, urgency, other Neurologic/Psychiatric: Denies: no symptoms, anxiety, depressed, emotional problems, headache, numbness, paresthesia, pre-existing deficit, seizure, tingling, tremors, weakness, other Endocrine: Denies: no symptoms, excessive sweating, flushing, intolerance to cold, intolerance to heat, increased hunger, increased thirst, increased urine, unexplained weight gain, unexplained weight loss, other Allergies: Coded Allergies: No Known Allergies (Unverified , 01/04/17) Subjective 12/09: no events, remains on abx, has been started on iv iron, hgb 9.9 12/11: s/p right leg wound debridement, cultures pending 12/12: vs stable, on abx, cultures noted, bleeding noted on dressing 12/13: no bleeding or chills, labs reviewed, no major night sweats 12/14: no events, no bleeding, wants to take off wound vac and take a shower, no f 12/15: no f/c, vs stable, no bleeding, no acute events, meds reviewed 12/17: leg pain, 06/11, refusing labs currently, no f/c, no bleeding 12/18: no changes, no bleeding, wound better 12/19: refusing labs, pain less today, laying flat 12/20: complaining with rn has had too many blood draws 12/21: no bleeding, chills or night sweats, no major changes 12/22: complaining of some pain, does not want any further lab draws 12/23: no bleeding, no night sweats, no major changes, right stump pain 12/25; refusing care, seen by id, no major changes, no bleeding 12/26: piccline in place, no events, doesn't want am lab draws 12/27: awake and alert, no acute events, afebrile 12/28: no events to report o/n, is on levaquin and zyvox x 20 days, no bleeding 12/29: no acute events, c/o pain, h/h stable, repeat cbc tomorrow 12/30: berating staff this am, does not want to draw blood, even though hgb 8.1 01/01: no bleeding, no events hgb was 8.2, 2 days ago, no major changes Objective Objective Current Medications Medications (Trade) Dose Ordered Sig/Trever Route PRN Reason Start Time Stop Time Status Last Admin Dose Admin Acetaminophen (Tylenol) 500 mg Q8H PRN ORAL Moderate Pain (Pain Scale 4-6) 12/05/18 23:15 01/04/19 23:14 Acetaminophen (Tylenol) 650 mg Q4H PRN ORAL Mild Pain/Temp > 100.5 12/05/18 23:15 01/04/19 23:14 Al Hydroxide/Mg Hydroxide (Mylanta II) 10 ml Q4H PRN ORAL indegestion 12/05/18 23:15 01/04/19 23:14 Bisacodyl (Dulcolax) 10 mg DAILYPRN PRN RECTAL Constipation 12/05/18 23:15 01/04/19 23:14 Chlorhexidine Gluconate (Sammie-Hex 2%) 1 applic DAILY@2000 TOPIC 12/06/18 20:00 01/05/19 19:59 12/31/18 20:38 Hydromorphone HCl (Dilaudid) 2 mg Q3H PRN IVP Severe Pain (Pain Scale 7-10) 12/27/18 08:40 01/03/19 08:39 01/01/19 12:37 Levofloxacin (Levaquin) 250 mg DAILY ORAL 12/23/18 09:00 01/16/19 23:59 01/01/19 08:36 Levothyroxine Sodium (Synthroid) 200 mcg DAILY@0630 ORAL 12/06/18 06:30 01/05/19 06:29 01/01/19 06:33 Magnesium Hydroxide (Mom) 30 ml DAILYPRN PRN ORAL Constipation 12/05/18 23:15 01/04/19 23:14 12/27/18 06:12 Naloxone HCl (Narcan) 0.2 mg Q2M PRN IVP RESPRITORY DEPRESSION 12/29/18 08:30 01/28/19 08:29 Pantoprazole (Protonix) 40 mg DAILY ORAL 12/06/18 09:00 01/05/19 08:59 01/01/19 08:36 Piperacillin Sod/ Tazobactam Sod 3.375 gm/Sodium Chloride 110 ml @ 27.5 mls/hr EVERY 8 HOURS IVPB 12/31/18 14:00 01/05/19 13:59 01/01/19 06:33 Sennosides (Senokot) 17.2 mg BEDTIME ORAL 12/06/18 21:00 01/05/19 20:59 12/28/18 21:03 Sodium Chloride 1,000 ml @ 75 mls/hr [id number] IV 12/10/18 09:45 01/09/19 09:44 01/01/19 02:05 Tamsulosin HCl (Flomax) 0.4 mg BEDTIME ORAL 12/30/18 21:00 01/29/19 20:59 12/31/18 20:38 Temazepam (Restoril) 15 mg HSPRN PRN ORAL Insomnia 12/28/18 03:00 01/04/19 02:59 12/31/18 23:02 Temazepam (Restoril) 30 mg HSPRN PRN ORAL Insomnia 12/28/18 03:00 01/04/19 02:59 12/31/18 20:38 Vancomycin HCl (Vanco rx to dose) 1 ea DAILY PRN MISC Per rx protocol 12/31/18 10:30 01/30/19 10:29 Vancomycin HCl 1 gm/Dextrose 275 ml @ 183.708 mls/hr Q24H IVPB 12/31/18 12:00 01/05/19 11:59 01/01/19 12:31 Last 24 Hour Vital Signs Date Time Temp Pulse Resp B/P (MAP) Pulse Ox O2 Delivery O2 Flow Rate FiO2 01/01/19 12:00 98.0 94 16 91/54 (66) 100 01/01/19 10:05 99.1 01/01/19 09:00 Room Air 01/01/19 08:00 97.9 85 16 125/80 (95) 98 01/01/19 04:00 99.1 99 18 124/60 (81) 98 01/01/19 00:00 99.8 105 18 133/80 (97) 95 12/31/18 21:00 Room Air 12/31/18 21:00 99.0 90 19 109/56 (73) 95 12/31/18 16:00 98.0 88 18 122/74 (90) 98 12/31/18 12:00 97.7 90 18 119/72 (88) 97 12/31/18 09:00 Room Air 12/31/18 08:00 98.0 83 20 110/65 (80) 96 12/31/18 00:00 97.9 81 19 107/62 (77) 95 12/30/18 21:00 Room Air 12/30/18 20:00 98.8 82 19 121/68 (85) 96 12/30/18 16:00 97.1 64 20 115/52 (73) 95 Intake and Output 12/31/18 01/01/19 19:00 07:00 Intake Total 2325.000 ml 485.0 ml Output Total 200 ml Balance 2325.000 ml 285.0 ml Intake Oral 1600 ml IV Total 725.000 ml 485.0 ml Output Urine Total 200 ml # Voids 8 1 Labs Test 12/29/18 17:45 12/30/18 19:01 Urine Color Pale yellow Urine Appearance Clear Urine pH 6 (4.5-8.0) Urine Specific [place] 1.015 (1.005-1.035) Urine Protein Negative (NEGATIVE) Urine Glucose (UA) Negative (NEGATIVE) Urine Ketones 1+ (NEGATIVE) Urine Blood 1+ (NEGATIVE) Urine Nitrite Negative (NEGATIVE) Urine Bilirubin Negative (NEGATIVE) Urine Urobilinogen Normal MG/DL (0.0-1.0) Urine Leukocyte Esterase Negative (NEGATIVE) Urine RBC 5-10 /HPF (0 - 0) Urine WBC 0-2 /HPF (0 - 0) Urine Squamous Epithelial Cells Occasional /LPF Urine Bacteria Few /HPF (NONE) Urine Yeast Moderate /HPF (NONE) White Blood Count 5.0 K/UL (4.8-10.8) Red Blood Count 2.46 M/UL (4.70-6.10) Hemoglobin 8.2 G/DL (14.2-18.0) Hematocrit 23.4 % (42.0-52.0) Mean Corpuscular Volume 95 FL (80-99) Mean Corpuscular Hemoglobin 33.2 PG (27.0-31.0) Mean Corpuscular Hemoglobin Concent 34.9 G/DL (32.0-36.0) Red Cell Distribution Width 12.6 % (11.6-14.8) Platelet Count 48 K/UL (150-450) Mean Platelet Volume 9.1 FL (6.5-10.1) Neutrophils (%) (Auto) % (45.0-75.0) Lymphocytes (%) (Auto) % (20.0-45.0) Monocytes (%) (Auto) % (1.0-10.0) Eosinophils (%) (Auto) % (0.0-3.0) Basophils (%) (Auto) % (0.0-2.0) Differential Total Cells Counted 100 Neutrophils % (Manual) 66 % (45-75) Lymphocytes % (Manual) 24 % (20-45) Monocytes % (Manual) 5 % (1-10) Eosinophils % (Manual) 4 % (0-3) Basophils % (Manual) 0 % (0-2) Band Neutrophils 0 % (0-8) Platelet Estimate Decreased Platelet Morphology Normal Hypochromasia 1+ Ferritin 194 NG/ML (8-388) HIV (1&2) Antibody Rapid Negative (NEGATIVE) Height (Feet): 5 Height (Inches): 0.00 Weight (Pounds): 149 Objective Vitals: reviewed Gen: Nad Pulm: Ctab CV: rrr, no mgr Abd: soft, nt, nd Ext: b/l bka noted, dressings+, wound vac Oseas Tong MD Jan 01, 2019 13:46
--- NOTE | 2019-01-01 16:39 | Surgery Progress Note ---
Surgery Progress Note Subjective Symptoms: improved, tolerating diet, passing flatus Objective Last 24 Hour Vital Signs Date Time Temp Pulse Resp B/P (MAP) Pulse Ox O2 Delivery O2 Flow Rate FiO2 01/01/19 13:07 99.1 01/01/19 12:00 98.0 94 16 91/54 (66) 100 01/01/19 09:00 Room Air 01/01/19 08:00 97.9 85 16 125/80 (95) 98 01/01/19 04:00 99.1 99 18 124/60 (81) 98 01/01/19 00:00 99.8 105 18 133/80 (97) 95 12/31/18 21:00 Room Air 12/31/18 21:00 99.0 90 19 109/56 (73) 95 I&O Intake and Output 12/31/18 01/01/19 19:00 07:00 Intake Total 2325.000 ml 485.0 ml Output Total 200 ml Balance 2325.000 ml 285.0 ml Intake Oral 1600 ml IV Total 725.000 ml 485.0 ml Output Urine Total 200 ml # Voids 8 1 Dressing: dry Wound: clean Drains: wound vac Cardiovascular: RSR Respiratory: clear Abdomen: soft, non-tender, present bowel sounds Extremities: no tenderness, no cyanosis, other Plan Problems: (1) Amputation stump infection Assessment & Plan: bilateral lower extremity below-knee amputations. On the right side the recent revision flap has dehisced and serous purulent drainage identified with viable sutures and palpable bone. On the left side the flap is intact on the medial aspect there is drainage coming from the wound bed in between the barbara. There is an opening on the lateral aspect approximately 2 cm x 2 cm with unknown depth given its location. We will currently continue with localized wound care as I discussed with the operating orthopedic surgeon about potential management. I discussed with the patient the current findings and the potential necessity for reoperation versus ray amputation. Versus potential salvage. Continue with IV antibiotics s/p debridement by plastic surgery 12/11 wound vac placed today by myself 12/12 d/c planning With follow with local wound care and evaluation We will discuss with orthopedic and medical team Thank you for allowing participate patient's care (2) Sacral decubitus ulcer Assessment & Plan: This is a 88-year-old male with multiple small full- thickness sacral decubitus ulcers. Patient states that he formed because he was laying flat for 15 days at an outside facility. Identified upon admission and initiated care plan. Periwound seems to have prior healing areas as well as acute inflamed areas with full-thickness breakdown approximately 1 cm x 1 cm on the left buttock/sacral cleft and similarly on the right as well. No active drainage. No foul order. Pt presented on admission with keloid scar with hyperpigmentation sacrum from previous pressure injury;confirmed by pt. Dry loose skin noted to R and L sacrum. No open areas noted. Pt denied tenderness when site palpated. Pt resistive to being repositioned on his sides and was educated of potential risks for already compromised skin to breakdown . Pt demonstrated ability to reposition self when cued.Demonstrated to pt on how to utilize side rails to off -lift buttocks and shift weight in bed. Skin lesions noted to R and L scalp. Pt verbalized he has skin cancer and lesions were recently removed. Hypergranular skin lesions also noted to Lateral L thigh. Apply Moisture Barrier Paste to Sacrum. Cover with Optifoam drsg. Change every 3 days and prn. Encourage and assist with repositioning at least every 2hours or as tolerated.Elevate BKA stumps on pillow. Turn every 2 hours. Patient willing and does assist with ensuring that he turns every so often Offload stump pressures with pillow Thank you for allowing me to participate in patient's care will follow with recommendations (3) Postoperative wound closure planning (4) Stump injury Assessment & Plan: s/p debridement by plastic surgery 12/11 wound vac placed today by myself 12/12 d/c planning plan for VAC upon discharge to SNF NPWT R BKA changed to today. Wound resolving(L)2.1cm x (W)5.2cm x (D)0.3cm. [place] granulation at base of wound .Edges flat and adherent to base of wound. Periwound is intact.No odor noted. 20ml serous exudate noted in canister. Wound cleansed with Saline. [place] Skin Barrier applied periwound then covered with transparent drape. Granulofoam cut to conform to wound. Additional granulofoam cut to accommodate Sensor trac pad. Covered with transparent drsg. NPWT resumed @125mm/Hg to continuous suction. Pt tolerated procedure well. Wounds L BKA wound medial aspect of L BKA hypergranular, oozing small amt of non -odorous serous exudate. Periwound without erythema or induration. Wound urvashi L BKA hypergranular ,oozing small amt of non-odorous serous exudate . Periwound without erythema or induration. Application of Silver Nitrate sticks applied to both woundsfor hypergranulation. Both wounds covered with Gauze then ABD pad and wrapped with Kerlix. Pt denied pain L BKA. Findings: X-ray better demonstrates signs of recent surgery with surgical clips barbara at the site of a below the knee amputation. The cortical margin at the tibial stump appears intact both on x-ray and MRI. MRI examination does demonstrate bone marrow edema in the anterior inferior aspect of the tibial stump. Adjacent soft tissue swelling is present. Given recent surgery the soft tissue changes are expected. The bone marrow edema could be reactive marrow edema or due to osteomyelitis. Suspect the former. Similar signal alteration noted within the left tibial stump (left lower extremity partially imaged on this study on the transcoronal sequences). thank you (5) Infection of amputation stump, right lower extremity Assessment & Plan: much improved d/c planning cont vac on d/c Jaiden Teresa Jan 01, 2019 16:39
[2019-01-01] MEDS: Sennosides 8.6mg tab ORAL SCH (21:00)
[2019-01-01] MEDS: Tamsulosin 0.4mg cap ORAL SCH (21:04)
[2019-01-01] MEDS: Dyna-Hex 2% Top Sol 2oz TOPIC SCH (21:08)
--- NOTE | 2019-01-01 21:12 | General Progress Note ---
Assessment/Plan Problem List: (1) Leg pain ICD Codes: M79.606 - Leg pain SNOMED: 12050165 (2) Anemia ICD Codes: D64.9 - Anemia, unspecified SNOMED: 091336780 (3) Amputation stump infection ICD Codes: T87.40 - Infection of amputation stump, unspecified extremity SNOMED: 977818288 (4) Postoperative wound closure planning ICD Codes: Z48.1 - Encounter for planned postprocedural wound closure SNOMED: 350265916 (5) Stump injury ICD Codes: T14.8 - Other injury of unspecified body region SNOMED: 539139534 (6) Infection of amputation stump, right lower extremity ICD Codes: T87.43 - Infection of amputation stump, right lower extremity SNOMED: 841614886, 622543868 Status: progressing Assessment/Plan: reviewed chart and labs I&d by dr duarte s/p infected wound dehiscence needs snf placement for wound care and abx Subjective ROS Limited/Unobtainable: Yes Allergies: Coded Allergies: No Known Allergies (Unverified , 01/04/17) Subjective chronic pain s/p i&d of infected wound and amputation site afebrile reviewed chart and labs needs snf placement Objective Last 24 Hour Vital Signs Date Time Temp Pulse Resp B/P (MAP) Pulse Ox O2 Delivery O2 Flow Rate FiO2 01/01/19 20:28 Room Air 01/01/19 20:00 98.4 92 20 96/48 (64) 95 01/01/19 16:32 99.1 01/01/19 16:00 98.1 92 16 102/58 (73) 97 01/01/19 12:00 98.0 94 16 91/54 (66) 100 01/01/19 09:00 Room Air 01/01/19 08:00 97.9 85 16 125/80 (95) 98 01/01/19 04:00 99.1 99 18 124/60 (81) 98 01/01/19 00:00 99.8 105 18 133/80 (97) 95 Intake and Output 12/31/18 01/01/19 19:00 07:00 Intake Total 2325.000 ml 485.0 ml Output Total 200 ml Balance 2325.000 ml 285.0 ml Intake Oral 1600 ml IV Total 725.000 ml 485.0 ml Output Urine Total 200 ml # Voids 8 1 Height (Feet): 5 Height (Inches): 0.00 Weight (Pounds): 149 Neck: supple Cardiovascular: normal rate Respiratory/Chest: lungs clear Abdomen: soft Rossy Samuel MD Jan 01, 2019 21:12
[2019-01-02 04:00] VITALS: BP 103/58
[2019-01-02] MEDS: Piperacillin/Tazobactam 3.375 GM in NS 110 ML IVPB SCH ×3 (05:08→22:03)
[2019-01-02 08:00] VITALS: BP_SYST 87; BP_SYST 94; BP_DIAS 52; BP_DIAS 59
--- NOTE | 2019-01-02 08:43 | Hematology/Onc Progress Note ---
Assessment/Plan Assessment/Plan IMPRESSION/RECS: # Anemia due to underlying iron deficiency, r/o gi bleed - also with multifactorial component --> anemia panel reviewed and noted with Iron def --> has been started on iv iron x 5 day course --> hgb transfuse if hgb lower than 7 --> hgb trend 10.6-->10.1-->9.9-->9.3-->10.7-->8.1->8.2 --> HOLDING OFF LABS q3 days --> occult ++, dw pcp, outpatient w/u with gi # Thrombocytopenia potentially due to meds (LINEZOLID) versus other culprit --> plt trend 117-->148k-->46-->48 --> heiv negative, hepatitis panel negative --> imaging abd reviewed --> meds reviewed, consider abx as per id care # History of melanoma. --> currently in remission # Amputation stump infection, BKA +++, more on right side --> on cefepime/vanc--> leva/vanc x 34 d--> zosyn, vanc, levaquin --> as per id recs --> surg, pod recs --> s/p i&d 01/02 # Wound dehiscence of right amputation stump. --> eval with surg, pod # Hypothyroidism. --> started on synthroid # Dvt ppx lovenox sq since mostly nonambulatory Time of note does not necessarily correspond to when patient seen Greatly appreciate consultation. Subjective Allergies: Coded Allergies: No Known Allergies (Unverified , 01/04/17) Subjective 12/09: no events, remains on abx, has been started on iv iron, hgb 9.9 12/11: s/p right leg wound debridement, cultures pending 12/12: vs stable, on abx, cultures noted, bleeding noted on dressing 12/13: no bleeding or chills, labs reviewed, no major night sweats 12/14: no events, no bleeding, wants to take off wound vac and take a shower, no f 12/15: no f/c, vs stable, no bleeding, no acute events, meds reviewed 12/17: leg pain, /, refusing labs currently, no f/c, no bleeding 12/18: no changes, no bleeding, wound better 12/19: refusing labs, pain less today, laying flat 12/20: complaining with rn has had too many blood draws 12/21: no bleeding, chills or night sweats, no major changes 12/22: complaining of some pain, does not want any further lab draws 12/23: no bleeding, no night sweats, no major changes, right stump pain 12/25; refusing care, seen by id, no major changes, no bleeding 12/26: piccline in place, no events, doesn't want am lab draws 12/27: awake and alert, no acute events, afebrile 12/28: no events to report o/n, is on levaquin and zyvox x 20 days, no bleeding 12/29: no acute events, c/o pain, h/h stable, repeat cbc tomorrow 12/30: berating staff this am, does not want to draw blood, even though hgb 8.1 01/01: no bleeding, no events hgb was 8.2, 2 days ago, no major changes 01/02: s/p i&d, urine cx and hep panel both negative, on abx Objective Objective Current Medications Medications (Trade) Dose Ordered Sig/Trever Route PRN Reason Start Time Stop Time Status Last Admin Dose Admin Acetaminophen (Tylenol) 500 mg Q8H PRN ORAL Moderate Pain (Pain Scale 4-6) 12/05/18 23:15 01/04/19 23:14 Acetaminophen (Tylenol) 650 mg Q4H PRN ORAL Mild Pain/Temp > 100.5 12/05/18 23:15 01/04/19 23:14 Al Hydroxide/Mg Hydroxide (Mylanta II) 10 ml Q4H PRN ORAL indegestion 12/05/18 23:15 01/04/19 23:14 Bisacodyl (Dulcolax) 10 mg DAILYPRN PRN RECTAL Constipation 12/05/18 23:15 01/04/19 23:14 Chlorhexidine Gluconate (Sammie-Hex 2%) 1 applic DAILY@2000 TOPIC 12/06/18 20:00 01/05/19 19:59 01/01/19 21:08 Hydromorphone HCl (Dilaudid) 2 mg Q3H PRN IVP Severe Pain (Pain Scale 7-10) 12/27/18 08:40 01/03/19 08:39 01/02/19 08:18 Levofloxacin (Levaquin) 250 mg DAILY ORAL 12/23/18 09:00 01/16/19 23:59 01/02/19 08:18 Levothyroxine Sodium (Synthroid) 200 mcg DAILY@0630 ORAL 12/06/18 06:30 01/05/19 06:29 01/02/19 06:15 Magnesium Hydroxide (Mom) 30 ml DAILYPRN PRN ORAL Constipation 12/05/18 23:15 01/04/19 23:14 12/27/18 06:12 Naloxone HCl (Narcan) 0.2 mg Q2M PRN IVP RESPRITORY DEPRESSION 12/29/18 08:30 01/28/19 08:29 Pantoprazole (Protonix) 40 mg DAILY ORAL 12/06/18 09:00 01/05/19 08:59 01/02/19 08:18 Piperacillin Sod/ Tazobactam Sod 3.375 gm/Sodium Chloride 110 ml @ 27.5 mls/hr EVERY 8 HOURS IVPB 12/31/18 14:00 01/05/19 13:59 01/02/19 05:08 Sennosides (Senokot) 17.2 mg BEDTIME ORAL 12/06/18 21:00 01/05/19 20:59 12/28/18 21:03 Sodium Chloride 1,000 ml @ 75 mls/hr [id number] IV 12/10/18 09:45 01/09/19 09:44 01/02/19 05:00 Tamsulosin HCl (Flomax) 0.4 mg BEDTIME ORAL 12/30/18 21:00 01/29/19 20:59 01/01/19 21:04 Temazepam (Restoril) 15 mg HSPRN PRN ORAL Insomnia 12/28/18 03:00 01/04/19 02:59 01/02/19 01:02 Temazepam (Restoril) 30 mg HSPRN PRN ORAL Insomnia 12/28/18 03:00 01/04/19 02:59 01/01/19 21:04 Vancomycin HCl (Vanco rx to dose) 1 ea DAILY PRN MISC Per rx protocol 12/31/18 10:30 01/30/19 10:29 Vancomycin HCl 1 gm/Dextrose 275 ml @ 183.708 mls/hr Q24H IVPB 12/31/18 12:00 01/05/19 11:59 01/01/19 12:31 Last 24 Hour Vital Signs Date Time Temp Pulse Resp B/P (MAP) Pulse Ox O2 Delivery O2 Flow Rate FiO2 01/02/19 04:00 98.6 90 20 103/58 (73) 96 01/01/19 23:40 98.0 98 20 113/57 (75) 97 01/01/19 22:06 122/51 (74) 01/01/19 20:28 Room Air 01/01/19 20:00 98.4 92 20 96/48 (64) 95 01/01/19 16:32 99.1 01/01/19 16:00 98.1 92 16 102/58 (73) 97 01/01/19 12:00 98.0 94 16 91/54 (66) 100 01/01/19 09:00 Room Air 01/01/19 08:00 97.9 85 16 125/80 (95) 98 01/01/19 04:00 99.1 99 18 124/60 (81) 98 01/01/19 00:00 99.8 105 18 133/80 (97) 95 12/31/18 21:00 Room Air 12/31/18 21:00 99.0 90 19 109/56 (73) 95 12/31/18 16:00 98.0 88 18 122/74 (90) 98 12/31/18 12:00 97.7 90 18 119/72 (88) 97 12/31/18 09:00 Room Air Intake and Output 01/01/19 01/02/19 19:00 07:00 Intake Total 645.000 ml 1010.0 ml Output Total 500 ml Balance 645.000 ml 510.0 ml Intake Oral 750 ml IV Total 645.000 ml 260.0 ml Output Urine Total 500 ml Drainage Total 0 ml # Voids 4 3 Labs Test 12/30/18 19:01 White Blood Count 5.0 K/UL (4.8-10.8) Red Blood Count 2.46 M/UL (4.70-6.10) Hemoglobin 8.2 G/DL (14.2-18.0) Hematocrit 23.4 % (42.0-52.0) Mean Corpuscular Volume 95 FL (80-99) Mean Corpuscular Hemoglobin 33.2 PG (27.0-31.0) Mean Corpuscular Hemoglobin Concent 34.9 G/DL (32.0-36.0) Red Cell Distribution Width 12.6 % (11.6-14.8) Platelet Count 48 K/UL (150-450) Mean Platelet Volume 9.1 FL (6.5-10.1) Neutrophils (%) (Auto) % (45.0-75.0) Lymphocytes (%) (Auto) % (20.0-45.0) Monocytes (%) (Auto) % (1.0-10.0) Eosinophils (%) (Auto) % (0.0-3.0) Basophils (%) (Auto) % (0.0-2.0) Differential Total Cells Counted 100 Neutrophils % (Manual) 66 % (45-75) Lymphocytes % (Manual) 24 % (20-45) Monocytes % (Manual) 5 % (1-10) Eosinophils % (Manual) 4 % (0-3) Basophils % (Manual) 0 % (0-2) Band Neutrophils 0 % (0-8) Platelet Estimate Decreased Platelet Morphology Normal Hypochromasia 1+ Ferritin 194 NG/ML (8-388) Hepatitis A IgM Antibody Negative (Negative) Hepatitis B Surface Antigen Negative (Negative) Hepatitis B Core IgM Antibody Negative (Negative) Hepatitis C Antibody 0.1 s/co ratio (0.0-0.9) HIV (1&2) Antibody Rapid Negative (NEGATIVE) Height (Feet): 5 Height (Inches): 0.00 Weight (Pounds): 149 Objective Vitals: reviewed Gen: Nad Pulm: Ctab CV: rrr, no mgr Abd: soft, nt, nd Ext: b/l bka noted, dressings+, wound vac Oseas Tong MD Jan 02, 2019 08:43
--- NOTE | 2019-01-02 10:25 | Infectious Diseases Prog Note ---
Assessment/Plan Assessment/Plan IMPRESSION: 1. Amputation stump infection, more in the right side. - cultures; MRSA, Enterococcus ( VRE & Proteus - bone biopsy, like acute osteomyelitis 2 wound dehiscence of right amputation stump. 3. Anemia. 4. Hypothyroidism. 5. History of melanoma. 6. thrombocytopenia worse 10.Dysuria, ? UTI RECOMMENDATIONS: 1. We will continue with Levaquin X 15 days 2. continue IV Vancomycin & Zosyn Subjective ROS Limited/Unobtainable: No Constitutional: Reports: no symptoms Gastrointestinal/Abdominal: Denies: diarrhea Genitourinary: Reports: no symptoms Allergies: Coded Allergies: No Known Allergies (Unverified , 01/04/17) Objective Vital Signs Last 24 Hour Vital Signs Date Time Temp Pulse Resp B/P (MAP) Pulse Ox O2 Delivery O2 Flow Rate FiO2 01/02/19 04:00 98.6 90 20 103/58 (73) 96 01/01/19 23:40 98.0 98 20 113/57 (75) 97 01/01/19 22:06 122/51 (74) 01/01/19 20:28 Room Air 01/01/19 20:00 98.4 92 20 96/48 (64) 95 01/01/19 16:32 99.1 01/01/19 16:00 98.1 92 16 102/58 (73) 97 01/01/19 12:00 98.0 94 16 91/54 (66) 100 Height (Feet): 5 Height (Inches): 0.00 Weight (Pounds): 149 General Appearance: no acute distress HEENT: mucous membranes moist Respiratory/Chest: lungs clear Cardiovascular: normal rate, other - PICC line Abdomen: soft, non tender Extremities: no edema, other - bilateral BKA Skin: ulcers, other - R stump wound -vac Neurologic/Psychiatric: alert, oriented x 3, responsive Current Medications Medications (Trade) Dose Ordered Sig/Trever Route PRN Reason Start Time Stop Time Status Last Admin Dose Admin Acetaminophen (Tylenol) 500 mg Q8H PRN ORAL Moderate Pain (Pain Scale 4-6) 12/05/18 23:15 01/04/19 23:14 Acetaminophen (Tylenol) 650 mg Q4H PRN ORAL Mild Pain/Temp > 100.5 12/05/18 23:15 01/04/19 23:14 Al Hydroxide/Mg Hydroxide (Mylanta II) 10 ml Q4H PRN ORAL indegestion 12/05/18 23:15 01/04/19 23:14 Bisacodyl (Dulcolax) 10 mg DAILYPRN PRN RECTAL Constipation 12/05/18 23:15 01/04/19 23:14 Chlorhexidine Gluconate (Sammie-Hex 2%) 1 applic DAILY@2000 TOPIC 12/06/18 20:00 01/05/19 19:59 01/01/19 21:08 Hydromorphone HCl (Dilaudid) 2 mg Q3H PRN IVP Severe Pain (Pain Scale 7-10) 12/27/18 08:40 01/03/19 08:39 01/02/19 08:18 Levofloxacin (Levaquin) 250 mg DAILY ORAL 12/23/18 09:00 01/16/19 23:59 01/02/19 08:18 Levothyroxine Sodium (Synthroid) 200 mcg DAILY@0630 ORAL 12/06/18 06:30 01/05/19 06:29 01/02/19 06:15 Magnesium Hydroxide (Mom) 30 ml DAILYPRN PRN ORAL Constipation 12/05/18 23:15 01/04/19 23:14 12/27/18 06:12 Naloxone HCl (Narcan) 0.2 mg Q2M PRN IVP RESPRITORY DEPRESSION 12/29/18 08:30 01/28/19 08:29 Pantoprazole (Protonix) 40 mg DAILY ORAL 12/06/18 09:00 01/05/19 08:59 01/02/19 08:18 Piperacillin Sod/ Tazobactam Sod 3.375 gm/Sodium Chloride 110 ml @ 27.5 mls/hr EVERY 8 HOURS IVPB 12/31/18 14:00 01/05/19 13:59 01/02/19 05:08 Sennosides (Senokot) 17.2 mg BEDTIME ORAL 12/06/18 21:00 01/05/19 20:59 12/28/18 21:03 Sodium Chloride 1,000 ml @ 75 mls/hr [id number] IV 12/10/18 09:45 01/09/19 09:44 01/02/19 05:00 Tamsulosin HCl (Flomax) 0.4 mg BEDTIME ORAL 12/30/18 21:00 01/29/19 20:59 01/01/19 21:04 Temazepam (Restoril) 15 mg HSPRN PRN ORAL Insomnia 12/28/18 03:00 01/04/19 02:59 01/02/19 01:02 Temazepam (Restoril) 30 mg HSPRN PRN ORAL Insomnia 12/28/18 03:00 01/04/19 02:59 01/01/19 21:04 Vancomycin HCl (Vanco rx to dose) 1 ea DAILY PRN MISC Per rx protocol 12/31/18 10:30 01/30/19 10:29 Vancomycin HCl 1 gm/Dextrose 275 ml @ 183.708 mls/hr Q24H IVPB 12/31/18 12:00 01/05/19 11:59 01/01/19 12:31 Partha Obrien MD Jan 02, 2019 10:25
--- NOTE | 2019-01-02 10:53 | Surgery Progress Note ---
Surgery Progress Note Subjective Symptoms: improved Additional Comments no acute events comfortable stable Objective Last 24 Hour Vital Signs Date Time Temp Pulse Resp B/P (MAP) Pulse Ox O2 Delivery O2 Flow Rate FiO2 01/02/19 04:00 98.6 90 20 103/58 (73) 96 01/01/19 23:40 98.0 98 20 113/57 (75) 97 01/01/19 22:06 122/51 (74) 01/01/19 20:28 Room Air 01/01/19 20:00 98.4 92 20 96/48 (64) 95 01/01/19 16:32 99.1 01/01/19 16:00 98.1 92 16 102/58 (73) 97 01/01/19 12:00 98.0 94 16 91/54 (66) 100 I&O Intake and Output 01/01/19 01/02/19 19:00 07:00 Intake Total 645.000 ml 1010.0 ml Output Total 500 ml Balance 645.000 ml 510.0 ml Intake Oral 750 ml IV Total 645.000 ml 260.0 ml Output Urine Total 500 ml Drainage Total 0 ml # Voids 4 3 Dressing: dry Wound: clean Drains: wound vac Cardiovascular: RSR Respiratory: clear Abdomen: soft, non-tender, present bowel sounds Extremities: no tenderness, no cyanosis Plan Problems: (1) Amputation stump infection Assessment & Plan: bilateral lower extremity below-knee amputations. On the right side the recent revision flap has dehisced and serous purulent drainage identified with viable sutures and palpable bone. On the left side the flap is intact on the medial aspect there is drainage coming from the wound bed in between the barbara. There is an opening on the lateral aspect approximately 2 cm x 2 cm with unknown depth given its location. We will currently continue with localized wound care as I discussed with the operating orthopedic surgeon about potential management. I discussed with the patient the current findings and the potential necessity for reoperation versus ray amputation. Versus potential salvage. Continue with IV antibiotics s/p debridement by plastic surgery 12/11 wound vac placed today by myself 12/12 d/c planning With follow with local wound care and evaluation We will discuss with orthopedic and medical team Thank you for allowing participate patient's care (2) Sacral decubitus ulcer Assessment & Plan: This is a 88-year-old male with multiple small full- thickness sacral decubitus ulcers. Patient states that he formed because he was laying flat for 15 days at an outside facility. Identified upon admission and initiated care plan. Periwound seems to have prior healing areas as well as acute inflamed areas with full-thickness breakdown approximately 1 cm x 1 cm on the left buttock/sacral cleft and similarly on the right as well. No active drainage. No foul order. Pt presented on admission with keloid scar with hyperpigmentation sacrum from previous pressure injury;confirmed by pt. Dry loose skin noted to R and L sacrum. No open areas noted. Pt denied tenderness when site palpated. Pt resistive to being repositioned on his sides and was educated of potential risks for already compromised skin to breakdown . Pt demonstrated ability to reposition self when cued.Demonstrated to pt on how to utilize side rails to off -lift buttocks and shift weight in bed. Skin lesions noted to R and L scalp. Pt verbalized he has skin cancer and lesions were recently removed. Hypergranular skin lesions also noted to Lateral L thigh. Apply Moisture Barrier Paste to Sacrum. Cover with Optifoam drsg. Change every 3 days and prn. Encourage and assist with repositioning at least every 2hours or as tolerated.Elevate BKA stumps on pillow. Turn every 2 hours. Patient willing and does assist with ensuring that he turns every so often Offload stump pressures with pillow Thank you for allowing me to participate in patient's care will follow with recommendations (3) Postoperative wound closure planning (4) Stump injury Assessment & Plan: s/p debridement by plastic surgery 12/11 wound vac placed today by myself 12/12 d/c planning plan for VAC upon discharge to SNF NPWT R BKA changed to today. Wound resolving(L)2.1cm x (W)5.2cm x (D)0.3cm. [place] granulation at base of wound .Edges flat and adherent to base of wound. Periwound is intact.No odor noted. 20ml serous exudate noted in canister. Wound cleansed with Saline. [place] Skin Barrier applied periwound then covered with transparent drape. Granulofoam cut to conform to wound. Additional granulofoam cut to accommodate Sensor trac pad. Covered with transparent drsg. NPWT resumed @125mm/Hg to continuous suction. Pt tolerated procedure well. Wounds L BKA wound medial aspect of L BKA hypergranular, oozing small amt of non -odorous serous exudate. Periwound without erythema or induration. Wound urvashi L BKA hypergranular ,oozing small amt of non-odorous serous exudate . Periwound without erythema or induration. Application of Silver Nitrate sticks applied to both woundsfor hypergranulation. Both wounds covered with Gauze then ABD pad and wrapped with Kerlix. Pt denied pain L BKA. Findings: X-ray better demonstrates signs of recent surgery with surgical clips barbara at the site of a below the knee amputation. The cortical margin at the tibial stump appears intact both on x-ray and MRI. MRI examination does demonstrate bone marrow edema in the anterior inferior aspect of the tibial stump. Adjacent soft tissue swelling is present. Given recent surgery the soft tissue changes are expected. The bone marrow edema could be reactive marrow edema or due to osteomyelitis. Suspect the former. Similar signal alteration noted within the left tibial stump (left lower extremity partially imaged on this study on the transcoronal sequences). thank you (5) Infection of amputation stump, right lower extremity Assessment & Plan: much improved d/c planning cont vac on d/c Jaiden Teresa Jan 02, 2019 10:53
[2019-01-02 12:00] VITALS: BP 93/52
[2019-01-02] MEDS: Vancomycin 1gm/D5W 275ml IVPB SCH ×2 (12:52)
[2019-01-02 16:00] VITALS: BP 90/51
[2019-01-02] MEDS ORDERED: Tubing IV Secondary IV ONE (17:22)
[2019-01-02 20:00] VITALS: BP 103/51
[2019-01-02] MEDS: Sennosides 8.6mg tab ORAL SCH (20:53)
[2019-01-02] MEDS: Dyna-Hex 2% Top Sol 2oz TOPIC SCH (20:53)
[2019-01-02] MEDS: Tamsulosin 0.4mg cap ORAL SCH (20:53)
--- NOTE | 2019-01-02 21:33 | General Progress Note ---
Assessment/Plan Problem List: (1) Leg pain ICD Codes: M79.606 - Leg pain SNOMED: 19258210 (2) Anemia ICD Codes: D64.9 - Anemia, unspecified SNOMED: 365485561 (3) Amputation stump infection ICD Codes: T87.40 - Infection of amputation stump, unspecified extremity SNOMED: 588279112 (4) Postoperative wound closure planning ICD Codes: Z48.1 - Encounter for planned postprocedural wound closure SNOMED: 680495532 (5) Stump injury ICD Codes: T14.8 - Other injury of unspecified body region SNOMED: 651016075 (6) Infection of amputation stump, right lower extremity ICD Codes: T87.43 - Infection of amputation stump, right lower extremity SNOMED: 462111615, 201172208 Status: progressing Assessment/Plan: no acute event chronic pain vitals stable I&d by dr duarte s/p infected wound dehiscence needs snf placement for wound care and abx Subjective ROS Limited/Unobtainable: Yes Allergies: Coded Allergies: No Known Allergies (Unverified , 01/04/17) Subjective chronic pain s/p i&d of infected wound and amputation site afebrile reviewed chart and labs needs snf placement Objective Last 24 Hour Vital Signs Date Time Temp Pulse Resp B/P (MAP) Pulse Ox O2 Delivery O2 Flow Rate FiO2 01/02/19 20:24 Room Air 01/02/19 20:00 98.4 91 20 103/51 (68) 92 01/02/19 16:00 98.7 91 18 90/51 (64) 92 01/02/19 12:00 98.2 95 18 93/52 (66) 93 01/02/19 09:00 Room Air 01/02/19 08:00 98.1 87 20 94/59 (71) 97 01/02/19 04:00 98.6 90 20 103/58 (73) 96 01/01/19 23:40 98.0 98 20 113/57 (75) 97 01/01/19 22:06 122/51 (74) Intake and Output 01/01/19 01/02/19 19:00 07:00 Intake Total 645.000 ml 1085.0 ml Output Total 500 ml Balance 645.000 ml 585.0 ml Intake Oral 750 ml IV Total 645.000 ml 335.0 ml Output Urine Total 500 ml Drainage Total 0 ml # Voids 4 3 Height (Feet): 5 Height (Inches): 0.00 Weight (Pounds): 149 Cardiovascular: normal rate Respiratory/Chest: lungs clear Abdomen: soft Rossy Samuel MD Jan 02, 2019 21:33
[2019-01-03] VITALS: BP 110/52
[2019-01-03 04:00] VITALS: BP 110/69
[2019-01-03] MEDS: Piperacillin/Tazobactam 3.375 GM in NS 110 ML IVPB SCH ×3 (05:02→22:02)
[2019-01-03 08:00] VITALS: BP 102/60
--- NOTE | 2019-01-03 08:44 | General Progress Note ---
Assessment/Plan Assessment/Plan: (1) B/L BKA (2) B/L stump pain (3) s/p stump revision (4) Phantom limb pain The patient will be continued on Dilaudid. The patient was discussed with Dr. Velasquez and Dr. Velasquez concurred. Subjective Date patient seen: Jan 03, 2019 Time patient seen: 07:00 - am Allergies: Coded Allergies: No Known Allergies (Unverified , 01/04/17) Subjective REVIEW OF SYSTEMS: Denies rash, fever, chills, sweating, dizziness, drowsiness, or change in weight. No shortness of breath or chest pain. No nausea, vomiting, or blood in the stool or urine. No bowel or bladder incontinence. No dysuria. He is complaining of bilateral lower extremity. SUBJECTIVE: Pt is in bed continues to c/o pain and requesting the Dilaudid Q3H as needed. Has no new complaints at this time, d/w nurse and patient to continue parameters. Objective Last 24 Hour Vital Signs Date Time Temp Pulse Resp B/P (MAP) Pulse Ox O2 Delivery O2 Flow Rate FiO2 01/03/19 04:00 97.9 90 20 110/69 (83) 95 01/03/19 00:00 98.1 87 18 110/52 (71) 93 01/02/19 20:24 Room Air 01/02/19 20:00 98.4 91 20 103/51 (68) 92 01/02/19 16:00 98.7 91 18 90/51 (64) 92 01/02/19 12:00 98.2 95 18 93/52 (66) 93 01/02/19 09:00 Room Air Intake and Output 01/02/19 01/03/19 18:59 06:59 Intake Total 1829.916 ml 287.5 ml Output Total 450 ml 500 ml Balance 1379.916 ml -212.5 ml Intake Oral 480 ml IV Total 1349.916 ml 287.5 ml Output Urine Total 450 ml 500 ml # Voids 2 Height (Feet): 5 Height (Inches): 0.00 Weight (Pounds): 160 Objective GENERAL: Alert, awake, and oriented x3. LUNGS: Clear. HEART: S1 S2 Regular. ABDOMEN: Benign. EXTREMITIES: Bilateral ahlnp-ozl-atyl amputation noted. wound vac applied to right LE. NEURO: No changes. Zedner,Hiram N. PA Jan 03, 2019 08:44
--- NOTE | 2019-01-03 09:53 | Hematology/Onc Progress Note ---
Assessment/Plan Assessment/Plan IMPRESSION/RECS: # Anemia due to underlying iron deficiency, r/o gi bleed - also with multifactorial component --> anemia panel reviewed and noted with Iron def --> has been started on iv iron x 5 day course --> hgb transfuse if hgb lower than 7 --> hgb trend 10.6-->10.1-->9.9-->9.3-->10.7-->8.1-->8.2 --> HOLDING OFF LABS q3 days --> occult ++, dw pcp, outpatient w/u with gi # Thrombocytopenia potentially due to meds (LINEZOLID) versus other culprit --> plt trend 117-->148k-->46-->48-->48 --> hiv negative, hepatitis panel negative --> imaging abd reviewed --> meds reviewed, consider abx as per id care # History of melanoma. --> currently in remission # Amputation stump infection, BKA +++, more on right side --> on cefepime/vanc--> leva/vanc x 34 d--> zosyn, vanc, levaquin --> as per id recs --> surg, pod recs --> s/p i&d 01/02 # Wound dehiscence of right amputation stump. --> eval with surg, pod # Hypothyroidism. --> started on synthroid # Dvt ppx lovenox sq --> nonambulatory Time of note does not necessarily correspond to when patient seen Greatly appreciate consultation. Subjective Constitutional: Denies: no symptoms, chills, fever, malaise, weakness, other HEENT: Denies: no symptoms, eye pain, blurred vision, tearing, double vision, ear pain, ear discharge, nose pain, nose congestion, throat pain, throat swelling, mouth pain, mouth swelling, other Cardiovascular: Denies: no symptoms, chest pain, edema, irregular heart rate, lightheadedness, palpitations, syncope, other Respiratory: Denies: no symptoms, cough, shortness of breath, SOB with excertion, SOB at rest, sputum, wheezing, other Gastrointestinal/Abdominal: Denies: no symptoms, abdomen distended, abdominal pain, black stools, tarry stools, blood in stool, constipated, diarrhea, difficulty swallowing, nausea, poor appetite, poor fluid intake, rectal bleeding , vomiting, other Neurologic/Psychiatric: Denies: no symptoms, anxiety, depressed, emotional problems, headache, numbness, paresthesia, pre-existing deficit, seizure, tingling, tremors, weakness, other Endocrine: Denies: no symptoms, excessive sweating, flushing, intolerance to cold, intolerance to heat, increased hunger, increased thirst, increased urine, unexplained weight gain, unexplained weight loss, other Allergies: Coded Allergies: No Known Allergies (Unverified , 01/04/17) Subjective 12/09: no events, remains on abx, has been started on iv iron, hgb 9.9 12/11: s/p right leg wound debridement, cultures pending 12/12: vs stable, on abx, cultures noted, bleeding noted on dressing 12/13: no bleeding or chills, labs reviewed, no major night sweats 12/14: no events, no bleeding, wants to take off wound vac and take a shower, no f 12/15: no f/c, vs stable, no bleeding, no acute events, meds reviewed 12/17: leg pain, 06/11, refusing labs currently, no f/c, no bleeding 12/18: no changes, no bleeding, wound better 12/19: refusing labs, pain less today, laying flat 12/20: complaining with rn has had too many blood draws 12/21: no bleeding, chills or night sweats, no major changes 12/22: complaining of some pain, does not want any further lab draws 12/23: no bleeding, no night sweats, no major changes, right stump pain 12/25; refusing care, seen by id, no major changes, no bleeding 12/26: piccline in place, no events, doesn't want am lab draws 12/27: awake and alert, no acute events, afebrile 12/28: no events to report o/n, is on levaquin and zyvox x 20 days, no bleeding 12/29: no acute events, c/o pain, h/h stable, repeat cbc tomorrow 12/30: berating staff this am, does not want to draw blood, even though hgb 8.1 01/01: no bleeding, no events hgb was 8.2, 2 days ago, no major changes 01/02: s/p i&d, urine cx and hep panel both negative, on abx 01/03: no bleeding noted, no night sweats, labs reviewed, wound vac++ Objective Objective Current Medications Medications (Trade) Dose Ordered Sig/Trever Route PRN Reason Start Time Stop Time Status Last Admin Dose Admin Acetaminophen (Tylenol) 500 mg Q8H PRN ORAL Moderate Pain (Pain Scale 4-6) 12/05/18 23:15 01/04/19 23:14 Acetaminophen (Tylenol) 650 mg Q4H PRN ORAL Mild Pain/Temp > 100.5 12/05/18 23:15 01/04/19 23:14 Al Hydroxide/Mg Hydroxide (Mylanta II) 10 ml Q4H PRN ORAL indegestion 12/05/18 23:15 01/04/19 23:14 Bisacodyl (Dulcolax) 10 mg DAILYPRN PRN RECTAL Constipation 12/05/18 23:15 01/04/19 23:14 Chlorhexidine Gluconate (Sammie-Hex 2%) 1 applic DAILY@1999 TOPIC 12/06/18 20:00 01/05/19 19:59 01/02/19 20:53 Hydromorphone HCl (Dilaudid) 2 mg Q3H PRN IVP severe pain 01/03/19 08:45 01/10/19 08:44 Levofloxacin (Levaquin) 250 mg DAILY ORAL 12/23/18 09:00 01/16/19 23:59 01/03/19 08:02 Levothyroxine Sodium (Synthroid) 200 mcg DAILY@0630 ORAL 12/06/18 06:30 01/05/19 06:29 01/03/19 05:51 Magnesium Hydroxide (Mom) 30 ml DAILYPRN PRN ORAL Constipation 12/05/18 23:15 01/04/19 23:14 12/27/18 06:12 Naloxone HCl (Narcan) 0.2 mg Q2M PRN IVP RESPRITORY DEPRESSION 12/29/18 08:30 01/28/19 08:29 Pantoprazole (Protonix) 40 mg DAILY ORAL 12/06/18 09:00 01/05/19 08:59 01/03/19 08:02 Piperacillin Sod/ Tazobactam Sod 3.375 gm/Sodium Chloride 110 ml @ 27.5 mls/hr EVERY 8 HOURS IVPB 12/31/18 14:00 01/17/19 23:59 01/03/19 05:02 Sennosides (Senokot) 17.2 mg BEDTIME ORAL 12/06/18 21:00 01/05/19 20:59 12/28/18 21:03 Sodium Chloride 1,000 ml @ 75 mls/hr [id number] IV 12/10/18 09:45 01/09/19 09:44 01/03/19 05:00 Tamsulosin HCl (Flomax) 0.4 mg BEDTIME ORAL 12/30/18 21:00 01/29/19 20:59 01/02/19 20:53 Temazepam (Restoril) 15 mg HSPRN PRN ORAL Insomnia 12/28/18 03:00 01/04/19 02:59 01/02/19 23:54 Temazepam (Restoril) 30 mg HSPRN PRN ORAL Insomnia 12/28/18 03:00 01/04/19 02:59 01/02/19 20:53 Vancomycin HCl (Vanco rx to dose) 1 ea DAILY PRN MISC Per rx protocol 12/31/18 10:30 01/30/19 10:29 Vancomycin HCl 1 gm/Dextrose 275 ml @ 183.708 mls/hr Q24H IVPB 12/31/18 12:00 01/05/19 11:59 01/02/19 12:52 Last 24 Hour Vital Signs Date Time Temp Pulse Resp B/P (MAP) Pulse Ox O2 Delivery O2 Flow Rate FiO2 01/03/19 09:00 Room Air 01/03/19 08:00 97.3 89 18 102/60 (74) 95 01/03/19 04:00 97.9 90 20 110/69 (83) 95 01/03/19 00:00 98.1 87 18 110/52 (71) 93 01/02/19 20:24 Room Air 01/02/19 20:00 98.4 91 20 103/51 (68) 92 01/02/19 16:00 98.7 91 18 90/51 (64) 92 01/02/19 12:00 98.2 95 18 93/52 (66) 93 01/02/19 09:00 Room Air 01/02/19 08:00 98.1 87 20 94/59 (71) 97 01/02/19 04:00 98.6 90 20 103/58 (73) 96 01/01/19 23:40 98.0 98 20 113/57 (75) 97 01/01/19 22:06 122/51 (74) 01/01/19 20:28 Room Air 01/01/19 20:00 98.4 92 20 96/48 (64) 95 01/01/19 16:32 99.1 01/01/19 16:00 98.1 92 16 102/58 (73) 97 01/01/19 12:00 98.0 94 16 91/54 (66) 100 Intake and Output 01/02/19 01/03/19 18:59 06:59 Intake Total 1829.916 ml 287.5 ml Output Total 450 ml 500 ml Balance 1379.916 ml -212.5 ml Intake Oral 480 ml IV Total 1349.916 ml 287.5 ml Output Urine Total 450 ml 500 ml # Voids 2 Height (Feet): 5 Height (Inches): 0.00 Weight (Pounds): 160 Objective Vitals: reviewed Gen: Nad Pulm: Ctab CV: rrr, no mgr Abd: soft, nt, nd Ext: b/l bka noted, dressings+, wound vac Oseas Tong MD Jan 03, 2019 09:53
[2019-01-03 12:00] VITALS: BP 112/62
[2019-01-03] MEDS: Vancomycin 1gm/D5W 275ml IVPB SCH ×2 (12:00)
--- NOTE | 2019-01-03 13:39 | Infectious Diseases Prog Note ---
Assessment/Plan Assessment/Plan IMPRESSION: 1. Amputation stump infection, more in the right side. - cultures; MRSA, Enterococcus ( VRE & Proteus - bone biopsy, like acute osteomyelitis 2 wound dehiscence of right amputation stump. 3. Anemia. 4. Hypothyroidism. 5. History of melanoma. 6. thrombocytopenia worse 10.Dysuria, ? UTI RECOMMENDATIONS: 1. We will continue with Levaquin X 14 days 2. continue IV Vancomycin & Zosyn Subjective ROS Limited/Unobtainable: Yes Allergies: Coded Allergies: No Known Allergies (Unverified , 01/04/17) Objective Vital Signs Last 24 Hour Vital Signs Date Time Temp Pulse Resp B/P (MAP) Pulse Ox O2 Delivery O2 Flow Rate FiO2 01/03/19 12:00 97.4 91 18 112/62 (79) 95 01/03/19 09:00 Room Air 01/03/19 08:00 97.3 89 18 102/60 (74) 95 01/03/19 04:00 97.9 90 20 110/69 (83) 95 01/03/19 00:00 98.1 87 18 110/52 (71) 93 01/02/19 20:24 Room Air 01/02/19 20:00 98.4 91 20 103/51 (68) 92 01/02/19 16:00 98.7 91 18 90/51 (64) 92 Height (Feet): 5 Height (Inches): 0.00 Weight (Pounds): 160 General Appearance: no acute distress HEENT: mucous membranes moist Respiratory/Chest: lungs clear Cardiovascular: normal rate Abdomen: soft, non tender Extremities: other - Bilateral BKA Skin: ulcers, other - R leg stump wound-vac Neurologic/Psychiatric: other - sleeping Laboratory Tests Test 01/03/19 11:50 Vancomycin Level Trough 8.2 ug/mL (5.0-12.0) Current Medications Medications (Trade) Dose Ordered Sig/Trever Route PRN Reason Start Time Stop Time Status Last Admin Dose Admin Acetaminophen (Tylenol) 500 mg Q8H PRN ORAL Moderate Pain (Pain Scale 4-6) 12/05/18 23:15 01/04/19 23:14 Acetaminophen (Tylenol) 650 mg Q4H PRN ORAL Mild Pain/Temp > 100.5 12/05/18 23:15 01/04/19 23:14 Al Hydroxide/Mg Hydroxide (Mylanta II) 10 ml Q4H PRN ORAL indegestion 12/05/18 23:15 01/04/19 23:14 Bisacodyl (Dulcolax) 10 mg DAILYPRN PRN RECTAL Constipation 12/05/18 23:15 01/04/19 23:14 Chlorhexidine Gluconate (Sammie-Hex 2%) 1 applic DAILY@2000 TOPIC 12/06/18 20:00 01/05/19 19:59 01/02/19 20:53 Hydromorphone HCl (Dilaudid) 2 mg Q3H PRN IVP severe pain 01/03/19 08:45 01/10/19 08:44 01/03/19 11:15 Levofloxacin (Levaquin) 250 mg DAILY ORAL 12/23/18 09:00 01/16/19 23:59 01/03/19 08:02 Levothyroxine Sodium (Synthroid) 200 mcg DAILY@0630 ORAL 12/06/18 06:30 01/05/19 06:29 01/03/19 05:51 Magnesium Hydroxide (Mom) 30 ml DAILYPRN PRN ORAL Constipation 12/05/18 23:15 01/04/19 23:14 12/27/18 06:12 Naloxone HCl (Narcan) 0.2 mg Q2M PRN IVP RESPRITORY DEPRESSION 12/29/18 08:30 01/28/19 08:29 Pantoprazole (Protonix) 40 mg DAILY ORAL 12/06/18 09:00 01/05/19 08:59 01/03/19 08:02 Piperacillin Sod/ Tazobactam Sod 3.375 gm/Sodium Chloride 110 ml @ 27.5 mls/hr EVERY 8 HOURS IVPB 12/31/18 14:00 01/17/19 23:59 01/03/19 05:02 Sennosides (Senokot) 17.2 mg BEDTIME ORAL 12/06/18 21:00 01/05/19 20:59 12/28/18 21:03 Sodium Chloride 1,000 ml @ 75 mls/hr [id number] IV 12/10/18 09:45 01/09/19 09:44 01/03/19 05:00 Tamsulosin HCl (Flomax) 0.4 mg BEDTIME ORAL 12/30/18 21:00 01/29/19 20:59 01/02/19 20:53 Temazepam (Restoril) 15 mg HSPRN PRN ORAL Insomnia 12/28/18 03:00 01/04/19 02:59 01/02/19 23:54 Temazepam (Restoril) 30 mg HSPRN PRN ORAL Insomnia 12/28/18 03:00 01/04/19 02:59 01/02/19 20:53 Vancomycin HCl (Vanco rx to dose) 1 ea DAILY PRN MISC Per rx protocol 12/31/18 10:30 01/30/19 10:29 Vancomycin/Sodium Chloride 275 ml @ 137.5 mls/ hr Q24H IVPB 01/03/19 14:00 01/08/19 13:59 Partha Obrien MD Jan 03, 2019 13:39
[2019-01-03] MEDS: Milk of Magnesia 30ml Ud ORAL PRN (14:54)
[2019-01-03] MEDS: Vancomycin 1.5gm/NS Premix IVPB SCH (15:24)
[2019-01-03 20:00] VITALS: BP 98/59
--- NOTE | 2019-01-03 20:01 | Surgery Progress Note ---
Surgery Progress Note Subjective Symptoms: improved, tolerating diet, voiding well, passing flatus, BM Objective Last 24 Hour Vital Signs Date Time Temp Pulse Resp B/P (MAP) Pulse Ox O2 Delivery O2 Flow Rate FiO2 01/03/19 12:00 97.4 91 18 112/62 (79) 95 01/03/19 09:00 Room Air 01/03/19 08:00 97.3 89 18 102/60 (74) 95 01/03/19 04:00 97.9 90 20 110/69 (83) 95 01/03/19 00:00 98.1 87 18 110/52 (71) 93 01/02/19 20:24 Room Air I&O Intake and Output 01/02/19 01/03/19 19:00 07:00 Intake Total 1829.916 ml 287.5 ml Output Total 450 ml 500 ml Balance 1379.916 ml -212.5 ml Intake Oral 480 ml IV Total 1349.916 ml 287.5 ml Output Urine Total 450 ml 500 ml # Voids 2 Dressing: dry Drains: wound vac Cardiovascular: RSR Respiratory: clear Abdomen: soft, flat, non-tender, present bowel sounds Extremities: no edema, no tenderness, no cyanosis Laboratory Tests Test 01/03/19 11:50 Vancomycin Level Trough 8.2 ug/mL (5.0-12.0) Plan Problems: (1) Amputation stump infection Assessment & Plan: bilateral lower extremity below-knee amputations. On the right side the recent revision flap has dehisced and serous purulent drainage identified with viable sutures and palpable bone. On the left side the flap is intact on the medial aspect there is drainage coming from the wound bed in between the barbara. There is an opening on the lateral aspect approximately 2 cm x 2 cm with unknown depth given its location. We will currently continue with localized wound care as I discussed with the operating orthopedic surgeon about potential management. I discussed with the patient the current findings and the potential necessity for reoperation versus ray amputation. Versus potential salvage. Continue with IV antibiotics s/p debridement by plastic surgery 12/11 wound vac placed today by myself 12/12 d/c planning With follow with local wound care and evaluation We will discuss with orthopedic and medical team Thank you for allowing participate patient's care (2) Sacral decubitus ulcer Assessment & Plan: This is a 88-year-old male with multiple small full- thickness sacral decubitus ulcers. Patient states that he formed because he was laying flat for 15 days at an outside facility. Identified upon admission and initiated care plan. Periwound seems to have prior healing areas as well as acute inflamed areas with full-thickness breakdown approximately 1 cm x 1 cm on the left buttock/sacral cleft and similarly on the right as well. No active drainage. No foul order. Pt presented on admission with keloid scar with hyperpigmentation sacrum from previous pressure injury;confirmed by pt. Dry loose skin noted to R and L sacrum. No open areas noted. Pt denied tenderness when site palpated. Pt resistive to being repositioned on his sides and was educated of potential risks for already compromised skin to breakdown . Pt demonstrated ability to reposition self when cued.Demonstrated to pt on how to utilize side rails to off -lift buttocks and shift weight in bed. Skin lesions noted to R and L scalp. Pt verbalized he has skin cancer and lesions were recently removed. Hypergranular skin lesions also noted to Lateral L thigh. Apply Moisture Barrier Paste to Sacrum. Cover with Optifoam drsg. Change every 3 days and prn. Encourage and assist with repositioning at least every 2hours or as tolerated.Elevate BKA stumps on pillow. Turn every 2 hours. Patient willing and does assist with ensuring that he turns every so often Offload stump pressures with pillow Thank you for allowing me to participate in patient's care will follow with recommendations (3) Postoperative wound closure planning (4) Stump injury Assessment & Plan: s/p debridement by plastic surgery 12/11 wound vac placed today by myself 12/12 d/c planning plan for VAC upon discharge to SNF NPWT R BKA changed to today. Wound resolving(L)2.1cm x (W)5.2cm x (D)0.3cm. Leupp granulation at base of wound .Edges flat and adherent to base of wound. Periwound is intact.No odor noted. 20ml serous exudate noted in canister. Wound cleansed with Saline. Cavilon Skin Barrier applied periwound then covered with transparent drape. Granulofoam cut to conform to wound. Additional granulofoam cut to accommodate Sensor trac pad. Covered with transparent drsg. NPWT resumed @125mm/Hg to continuous suction. Pt tolerated procedure well. Wounds L BKA wound medial aspect of L BKA hypergranular, oozing small amt of non -odorous serous exudate. Periwound without erythema or induration. Wound urvashi L BKA hypergranular ,oozing small amt of non-odorous serous exudate . Periwound without erythema or induration. Application of Silver Nitrate sticks applied to both woundsfor hypergranulation. Both wounds covered with Gauze then ABD pad and wrapped with Kerlix. Pt denied pain L BKA. Findings: X-ray better demonstrates signs of recent surgery with surgical clips barbara at the site of a below the knee amputation. The cortical margin at the tibial stump appears intact both on x-ray and MRI. MRI examination does demonstrate bone marrow edema in the anterior inferior aspect of the tibial stump. Adjacent soft tissue swelling is present. Given recent surgery the soft tissue changes are expected. The bone marrow edema could be reactive marrow edema or due to osteomyelitis. Suspect the former. Similar signal alteration noted within the left tibial stump (left lower extremity partially imaged on this study on the transcoronal sequences). thank you (5) Infection of amputation stump, right lower extremity Assessment & Plan: much improved d/c planning cont vac on d/c Jaiden Teresa Jan 03, 2019 20:01
[2019-01-03] MEDS: Dyna-Hex 2% Top Sol 2oz TOPIC SCH (20:35)
[2019-01-03] MEDS: Sennosides 8.6mg tab ORAL SCH ×2 (20:35→20:46)
[2019-01-03] MEDS: Tamsulosin 0.4mg cap ORAL SCH (20:35)
--- NOTE | 2019-01-03 22:10 | General Progress Note ---
Assessment/Plan Problem List: (1) Leg pain ICD Codes: M79.606 - Leg pain SNOMED: 86340368 (2) Anemia ICD Codes: D64.9 - Anemia, unspecified SNOMED: 086376405 (3) Amputation stump infection ICD Codes: T87.40 - Infection of amputation stump, unspecified extremity SNOMED: 080534783 (4) Postoperative wound closure planning ICD Codes: Z48.1 - Encounter for planned postprocedural wound closure SNOMED: 170534946 (5) Stump injury ICD Codes: T14.8 - Other injury of unspecified body region SNOMED: 599521036 (6) Infection of amputation stump, right lower extremity ICD Codes: T87.43 - Infection of amputation stump, right lower extremity SNOMED: 946162572, 560541023 Status: progressing Assessment/Plan: wound vac afebrile anemia reviewed chart and labs I&d by dr duarte s/p infected wound dehiscence needs snf placement for wound care and abx Subjective ROS Limited/Unobtainable: Yes Allergies: Coded Allergies: No Known Allergies (Unverified , 01/04/17) Subjective chronic pain s/p i&d of infected wound and amputation site afebrile reviewed chart and labs needs snf placement Objective Last 24 Hour Vital Signs Date Time Temp Pulse Resp B/P (MAP) Pulse Ox O2 Delivery O2 Flow Rate FiO2 01/03/19 20:00 98.4 93 18 98/59 (72) 94 01/03/19 12:00 97.4 91 18 112/62 (79) 95 01/03/19 09:00 Room Air 01/03/19 08:00 97.3 89 18 102/60 (74) 95 01/03/19 04:00 97.9 90 20 110/69 (83) 95 01/03/19 00:00 98.1 87 18 110/52 (71) 93 Intake and Output 01/02/19 01/03/19 19:00 07:00 Intake Total 1829.916 ml 287.5 ml Output Total 450 ml 500 ml Balance 1379.916 ml -212.5 ml Intake Oral 480 ml IV Total 1349.916 ml 287.5 ml Output Urine Total 450 ml 500 ml # Voids 2 Laboratory Tests 01/03/19 11:50: Vancomycin Level Trough 8.2 Height (Feet): 5 Height (Inches): 0.00 Weight (Pounds): 160 Cardiovascular: normal rate Respiratory/Chest: lungs clear Rossy Samuel MD Jan 03, 2019 22:10
[2019-01-04] VITALS: BP 96/56
[2019-01-04] MEDS: Piperacillin/Tazobactam 3.375 GM in NS 110 ML IVPB SCH ×3 (05:30→21:50)
[2019-01-04 08:00] VITALS: BP 100/60
--- NOTE | 2019-01-04 09:05 | General Progress Note ---
Assessment/Plan Assessment/Plan: (1) B/L BKA (2) B/L stump pain (3) s/p stump revision (4) Phantom limb pain The patient will be continued on Dilaudid. The patient was discussed with Dr. Velasquez and Dr. Velasquez concurred. Subjective Date patient seen: Jan 04, 2019 Time patient seen: 08:50 - am Allergies: Coded Allergies: No Known Allergies (Unverified , 01/04/17) Subjective REVIEW OF SYSTEMS: Denies rash, fever, chills, sweating, dizziness, drowsiness, or change in weight. No shortness of breath or chest pain. No nausea, vomiting, or blood in the stool or urine. No bowel or bladder incontinence. No dysuria. He is complaining of bilateral lower extremity. SUBJECTIVE: Pt reports moderate pain which is sharp with wound vac still applied to right LE. The pain has been tolerated on the Dilaudid. He has no new complaints at this time. Objective Last 24 Hour Vital Signs Date Time Temp Pulse Resp B/P (MAP) Pulse Ox O2 Delivery O2 Flow Rate FiO2 01/04/19 08:00 98.3 97 18 100/60 (73) 96 01/04/19 00:00 98.9 96 18 96/56 (69) 95 01/03/19 21:00 Room Air 01/03/19 20:00 98.4 93 18 98/59 (72) 94 01/03/19 12:00 97.4 91 18 112/62 (79) 95 Intake and Output 01/03/19 01/04/19 19:00 07:00 Intake Total 1880.0 ml 1007.5 ml Output Total 350 ml Balance 1880.0 ml 657.5 ml IV Total 1230.0 ml 1007.5 ml Other 650 ml Output Urine Total 350 ml Drainage Total 0 ml # Voids 2 Laboratory Tests 01/03/19 11:50: Vancomycin Level Trough 8.2 Height (Feet): 5 Height (Inches): 0.00 Weight (Pounds): 160 Objective GENERAL: Alert, awake, and oriented x3. LUNGS: Clear. HEART: S1 S2 Regular. ABDOMEN: Benign. EXTREMITIES: Bilateral [id number] amputation noted. wound vac applied to right LE. NEURO: No changes. Hiram Griffin Jan 04, 2019 09:05
[2019-01-04 12:00] VITALS: BP 103/61
--- NOTE | 2019-01-04 13:29 | Infectious Diseases Prog Note ---
Assessment/Plan Assessment/Plan IMPRESSION: 1. Amputation stump infection, more in the right side. - cultures; MRSA, Enterococcus ( VRE & Proteus - bone biopsy, like acute osteomyelitis 2 wound dehiscence of right amputation stump. 3. Anemia. 4. Hypothyroidism. 5. History of melanoma. 6. thrombocytopenia worse 10.Dysuria, ? UTI RECOMMENDATIONS: 1. We will continue with Levaquin X 13 days 2. continue IV Vancomycin & Zosyn Subjective ROS Limited/Unobtainable: Yes Constitutional: Denies: fever Allergies: Coded Allergies: No Known Allergies (Unverified , 01/04/17) Objective Vital Signs Last 24 Hour Vital Signs Date Time Temp Pulse Resp B/P (MAP) Pulse Ox O2 Delivery O2 Flow Rate FiO2 01/04/19 12:00 98.3 86 18 103/61 (75) 96 01/04/19 10:24 98.3 01/04/19 09:22 Room Air 01/04/19 08:00 98.3 97 18 100/60 (73) 96 01/04/19 00:00 98.9 96 18 96/56 (69) 95 01/03/19 21:00 Room Air 01/03/19 20:00 98.4 93 18 98/59 (72) 94 Height (Feet): 5 Height (Inches): 0.00 Weight (Pounds): 160 General Appearance: no acute distress HEENT: mucous membranes moist Respiratory/Chest: lungs clear Cardiovascular: normal rate, other - PICC line Abdomen: soft, non tender Extremities: no edema, other - bilateral BKA Skin: ulcers, other - R stump wound-vac Neurologic/Psychiatric: other - sleeping Current Medications Medications (Trade) Dose Ordered Sig/Trever Route PRN Reason Start Time Stop Time Status Last Admin Dose Admin Acetaminophen (Tylenol) 500 mg Q8H PRN ORAL Moderate Pain (Pain Scale 4-6) 12/05/18 23:15 01/04/19 23:14 Acetaminophen (Tylenol) 650 mg Q4H PRN ORAL Mild Pain/Temp > 100.5 12/05/18 23:15 01/04/19 23:14 Al Hydroxide/Mg Hydroxide (Mylanta II) 10 ml Q4H PRN ORAL indegestion 12/05/18 23:15 01/04/19 23:14 Bisacodyl (Dulcolax) 10 mg DAILYPRN PRN RECTAL Constipation 12/05/18 23:15 01/04/19 23:14 Chlorhexidine Gluconate (Sammie-Hex 2%) 1 applic DAILY@1999 TOPIC 12/06/18 20:00 01/05/19 19:59 01/03/19 20:35 Hydromorphone HCl (Dilaudid) 2 mg Q3H PRN IVP severe pain 01/03/19 08:45 01/10/19 08:44 01/04/19 13:06 Levofloxacin (Levaquin) 250 mg DAILY ORAL 12/23/18 09:00 01/16/19 23:59 01/04/19 09:52 Levothyroxine Sodium (Synthroid) 200 mcg DAILY@0630 ORAL 12/06/18 06:30 01/05/19 06:29 01/04/19 05:30 Magnesium Hydroxide (Mom) 30 ml DAILYPRN PRN ORAL Constipation 12/05/18 23:15 01/04/19 23:14 01/03/19 14:54 Naloxone HCl (Narcan) 0.2 mg Q2M PRN IVP RESPRITORY DEPRESSION 12/29/18 08:30 01/28/19 08:29 Pantoprazole (Protonix) 40 mg DAILY ORAL 12/06/18 09:00 01/05/19 08:59 01/03/19 08:02 Piperacillin Sod/ Tazobactam Sod 3.375 gm/Sodium Chloride 110 ml @ 27.5 mls/hr EVERY 8 HOURS IVPB 12/31/18 14:00 01/17/19 23:59 01/04/19 05:30 Sennosides (Senokot) 17.2 mg BEDTIME ORAL 12/06/18 21:00 01/05/19 20:59 12/28/18 21:03 Sodium Chloride 1,000 ml @ 75 mls/hr [id number] IV 12/10/18 09:45 01/09/19 09:44 01/04/19 10:02 Tamsulosin HCl (Flomax) 0.4 mg BEDTIME ORAL 12/30/18 21:00 01/29/19 20:59 01/03/19 20:35 Temazepam (Restoril) 15 mg HSPRN PRN ORAL Insomnia 01/04/19 07:15 01/11/19 07:14 Temazepam (Restoril) 30 mg HSPRN PRN ORAL Insomnia 01/04/19 07:45 01/11/19 07:14 Vancomycin HCl (Vanco rx to dose) 1 ea DAILY PRN MISC Per rx protocol 12/31/18 10:30 01/30/19 10:29 Vancomycin/Sodium Chloride 275 ml @ 137.5 mls/ hr Q24H IVPB 01/03/19 14:00 01/08/19 13:59 01/03/19 15:24 Partha Obrien MD Jan 04, 2019 13:29
--- NOTE | 2019-01-04 13:29 | Hematology/Onc Progress Note ---
Assessment/Plan Assessment/Plan IMPRESSION/RECS: # Anemia due to underlying iron deficiency, r/o gi bleed - also with multifactorial component --> anemia panel reviewed and noted with Iron def --> has been started on iv iron x 5 day course --> hgb transfuse if hgb lower than 7 --> hgb trend 10.6-->10.1-->9.9-->9.3-->10.7-->8.1-->8.2 --> HOLDING OFF LABS q3 days --> occult ++, dw pcp, outpatient w/u with gi # Thrombocytopenia potentially due to meds (LINEZOLID) versus other culprit --> plt trend 117-->148k-->46-->48-->48 --> hiv negative, hepatitis panel negative --> imaging abd reviewed --> meds reviewed, consider abx as per id care # History of melanoma. --> currently in remission # Amputation stump infection, BKA +++, more on right side --> on cefepime/vanc--> leva/vanc x 34 d--> zosyn, vanc, levaquin --> as per id recs --> surg, pod recs --> s/p i&d 01/02 # Wound dehiscence of right amputation stump. --> eval with surg, pod # Hypothyroidism. --> started on synthroid # Dvt ppx lovenox sq --> nonambulatory Time of note does not necessarily correspond to when patient seen Greatly appreciate consultation. Subjective Constitutional: Denies: no symptoms, chills, fever, malaise, weakness, other Cardiovascular: Denies: no symptoms, chest pain, edema, irregular heart rate, lightheadedness, palpitations, syncope, other Respiratory: Denies: no symptoms, cough, shortness of breath, SOB with excertion, SOB at rest, sputum, wheezing, other Gastrointestinal/Abdominal: Denies: no symptoms, abdomen distended, abdominal pain, black stools, tarry stools, blood in stool, constipated, diarrhea, difficulty swallowing, nausea, poor appetite, poor fluid intake, rectal bleeding , vomiting, other Genitourinary: Denies: no symptoms, burning, discharge, frequency, flank pain, hematuria, incontinence, pain, urgency, other Neurologic/Psychiatric: Denies: no symptoms, anxiety, depressed, emotional problems, headache, numbness, paresthesia, pre-existing deficit, seizure, tingling, tremors, weakness, other Endocrine: Denies: no symptoms, excessive sweating, flushing, intolerance to cold, intolerance to heat, increased hunger, increased thirst, increased urine, unexplained weight gain, unexplained weight loss, other Allergies: Coded Allergies: No Known Allergies (Unverified , 01/04/17) Subjective 12/09: no events, remains on abx, has been started on iv iron, hgb 9.9 12/11: s/p right leg wound debridement, cultures pending 12/12: vs stable, on abx, cultures noted, bleeding noted on dressing 12/13: no bleeding or chills, labs reviewed, no major night sweats 12/14: no events, no bleeding, wants to take off wound vac and take a shower, no f 12/15: no f/c, vs stable, no bleeding, no acute events, meds reviewed 12/17: leg pain, 06/11, refusing labs currently, no f/c, no bleeding 12/18: no changes, no bleeding, wound better 12/19: refusing labs, pain less today, laying flat 12/20: complaining with rn has had too many blood draws 12/21: no bleeding, chills or night sweats, no major changes 12/22: complaining of some pain, does not want any further lab draws 12/23: no bleeding, no night sweats, no major changes, right stump pain 12/25; refusing care, seen by id, no major changes, no bleeding 12/26: piccline in place, no events, doesn't want am lab draws 12/27: awake and alert, no acute events, afebrile 12/28: no events to report o/n, is on levaquin and zyvox x 20 days, no bleeding 12/29: no acute events, c/o pain, h/h stable, repeat cbc tomorrow 12/30: berating staff this am, does not want to draw blood, even though hgb 8.1 01/01: no bleeding, no events hgb was 8.2, 2 days ago, no major changes 01/02: s/p i&d, urine cx and hep panel both negative, on abx 01/03: no bleeding noted, no night sweats, labs reviewed, wound vac++ 01/04: no bleeding, with picc, labs noted, no major changes Objective Objective Current Medications Medications (Trade) Dose Ordered Sig/Trever Route PRN Reason Start Time Stop Time Status Last Admin Dose Admin Acetaminophen (Tylenol) 500 mg Q8H PRN ORAL Moderate Pain (Pain Scale 4-6) 12/05/18 23:15 01/04/19 23:14 Acetaminophen (Tylenol) 650 mg Q4H PRN ORAL Mild Pain/Temp > 100.5 12/05/18 23:15 01/04/19 23:14 Al Hydroxide/Mg Hydroxide (Mylanta II) 10 ml Q4H PRN ORAL indegestion 12/05/18 23:15 01/04/19 23:14 Bisacodyl (Dulcolax) 10 mg DAILYPRN PRN RECTAL Constipation 12/05/18 23:15 01/04/19 23:14 Chlorhexidine Gluconate (Sammie-Hex 2%) 1 applic DAILY@1999 TOPIC 12/06/18 20:00 01/05/19 19:59 01/03/19 20:35 Hydromorphone HCl (Dilaudid) 2 mg Q3H PRN IVP severe pain 01/03/19 08:45 01/10/19 08:44 01/04/19 13:06 Levofloxacin (Levaquin) 250 mg DAILY ORAL 12/23/18 09:00 01/16/19 23:59 01/04/19 09:52 Levothyroxine Sodium (Synthroid) 200 mcg DAILY@0630 ORAL 12/06/18 06:30 01/05/19 06:29 01/04/19 05:30 Magnesium Hydroxide (Mom) 30 ml DAILYPRN PRN ORAL Constipation 12/05/18 23:15 01/04/19 23:14 01/03/19 14:54 Naloxone HCl (Narcan) 0.2 mg Q2M PRN IVP RESPRITORY DEPRESSION 12/29/18 08:30 01/28/19 08:29 Pantoprazole (Protonix) 40 mg DAILY ORAL 12/06/18 09:00 01/05/19 08:59 01/03/19 08:02 Piperacillin Sod/ Tazobactam Sod 3.375 gm/Sodium Chloride 110 ml @ 27.5 mls/hr EVERY 8 HOURS IVPB 12/31/18 14:00 01/17/19 23:59 01/04/19 05:30 Sennosides (Senokot) 17.2 mg BEDTIME ORAL 12/06/18 21:00 01/05/19 20:59 12/28/18 21:03 Sodium Chloride 1,000 ml @ 75 mls/hr [id number] IV 12/10/18 09:45 01/09/19 09:44 01/04/19 10:02 Tamsulosin HCl (Flomax) 0.4 mg BEDTIME ORAL 12/30/18 21:00 01/29/19 20:59 01/03/19 20:35 Temazepam (Restoril) 15 mg HSPRN PRN ORAL Insomnia 01/04/19 07:15 01/11/19 07:14 Temazepam (Restoril) 30 mg HSPRN PRN ORAL Insomnia 01/04/19 07:45 01/11/19 07:14 Vancomycin HCl (Vanco rx to dose) 1 ea DAILY PRN MISC Per rx protocol 12/31/18 10:30 01/30/19 10:29 Vancomycin/Sodium Chloride 275 ml @ 137.5 mls/ hr Q24H IVPB 01/03/19 14:00 01/08/19 13:59 01/03/19 15:24 Last 24 Hour Vital Signs Date Time Temp Pulse Resp B/P (MAP) Pulse Ox O2 Delivery O2 Flow Rate FiO2 01/04/19 12:00 98.3 86 18 103/61 (75) 96 01/04/19 10:24 98.3 01/04/19 09:22 Room Air 01/04/19 08:00 98.3 97 18 100/60 (73) 96 01/04/19 00:00 98.9 96 18 96/56 (69) 95 01/03/19 21:00 Room Air 01/03/19 20:00 98.4 93 18 98/59 (72) 94 01/03/19 12:00 97.4 91 18 112/62 (79) 95 01/03/19 09:00 Room Air 01/03/19 08:00 97.3 89 18 102/60 (74) 95 01/03/19 04:00 97.9 90 20 110/69 (83) 95 01/03/19 00:00 98.1 87 18 110/52 (71) 93 01/02/19 20:24 Room Air 01/02/19 20:00 98.4 91 20 103/51 (68) 92 01/02/19 16:00 98.7 91 18 90/51 (64) 92 Intake and Output 01/03/19 01/04/19 18:59 06:59 Intake Total 1880.0 ml 1082.5 ml Output Total 350 ml Balance 1880.0 ml 732.5 ml IV Total 1230.0 ml 1082.5 ml Other 650 ml Output Urine Total 350 ml Drainage Total 0 ml # Voids 2 Labs Test 01/03/19 11:50 Vancomycin Level Trough 8.2 ug/mL (5.0-12.0) Height (Feet): 5 Height (Inches): 0.00 Weight (Pounds): 160 Objective Vitals: reviewed Gen: Nad Pulm: Ctab CV: rrr, no mgr Abd: soft, nt, nd Ext: b/l bka noted, dressings+, wound vac Oseas Tong MD Jan 04, 2019 13:29
[2019-01-04] MEDS: Vancomycin 1.5gm/NS Premix IVPB SCH (13:39)
[2019-01-04 16:00] VITALS: BP 98/60
--- NOTE | 2019-01-04 19:30 | Surgery Progress Note ---
Surgery Progress Note Subjective Additional Comments no acute events comfortable stable Objective Last 24 Hour Vital Signs Date Time Temp Pulse Resp B/P (MAP) Pulse Ox O2 Delivery O2 Flow Rate FiO2 01/04/19 19:16 98.3 01/04/19 16:00 97.1 92 18 98/60 (73) 95 01/04/19 12:00 98.3 86 18 103/61 (75) 96 01/04/19 09:22 Room Air 01/04/19 08:00 98.3 97 18 100/60 (73) 96 01/04/19 00:00 98.9 96 18 96/56 (69) 95 01/03/19 21:00 Room Air 01/03/19 20:00 98.4 93 18 98/59 (72) 94 I&O Intake and Output 01/03/19 01/04/19 19:00 07:00 Intake Total 1880.0 ml 1082.5 ml Output Total 350 ml Balance 1880.0 ml 732.5 ml IV Total 1230.0 ml 1082.5 ml Other 650 ml Output Urine Total 350 ml Drainage Total 0 ml # Voids 2 Dressing: dry Wound: clean Drains: wound vac Cardiovascular: RSR Respiratory: clear Abdomen: soft, non-tender, present bowel sounds Extremities: no edema, no tenderness, no cyanosis, other Plan Problems: (1) Amputation stump infection Assessment & Plan: bilateral lower extremity below-knee amputations. On the right side the recent revision flap has dehisced and serous purulent drainage identified with viable sutures and palpable bone. On the left side the flap is intact on the medial aspect there is drainage coming from the wound bed in between the barbara. There is an opening on the lateral aspect approximately 2 cm x 2 cm with unknown depth given its location. We will currently continue with localized wound care as I discussed with the operating orthopedic surgeon about potential management. I discussed with the patient the current findings and the potential necessity for reoperation versus ray amputation. Versus potential salvage. Continue with IV antibiotics s/p debridement by plastic surgery 12/11 wound vac placed today by myself 12/12 d/c planning With follow with local wound care and evaluation We will discuss with orthopedic and medical team Thank you for allowing participate patient's care (2) Sacral decubitus ulcer Assessment & Plan: This is a 88-year-old male with multiple small full- thickness sacral decubitus ulcers. Patient states that he formed because he was laying flat for 15 days at an outside facility. Identified upon admission and initiated care plan. Periwound seems to have prior healing areas as well as acute inflamed areas with full-thickness breakdown approximately 1 cm x 1 cm on the left buttock/sacral cleft and similarly on the right as well. No active drainage. No foul order. Pt presented on admission with keloid scar with hyperpigmentation sacrum from previous pressure injury;confirmed by pt. Dry loose skin noted to R and L sacrum. No open areas noted. Pt denied tenderness when site palpated. Pt resistive to being repositioned on his sides and was educated of potential risks for already compromised skin to breakdown . Pt demonstrated ability to reposition self when cued.Demonstrated to pt on how to utilize side rails to off -lift buttocks and shift weight in bed. Skin lesions noted to R and L scalp. Pt verbalized he has skin cancer and lesions were recently removed. Hypergranular skin lesions also noted to Lateral L thigh. Apply Moisture Barrier Paste to Sacrum. Cover with Optifoam drsg. Change every 3 days and prn. Encourage and assist with repositioning at least every 2hours or as tolerated.Elevate BKA stumps on pillow. Turn every 2 hours. Patient willing and does assist with ensuring that he turns every so often Offload stump pressures with pillow Thank you for allowing me to participate in patient's care will follow with recommendations (3) Postoperative wound closure planning (4) Stump injury Assessment & Plan: s/p debridement by plastic surgery 12/11 wound vac placed today by myself 12/12 d/c planning plan for VAC upon discharge to SNF NPWT R BKA changed to today. Wound resolving(L)2.1cm x (W)5.2cm x (D)0.3cm. Minco granulation at base of wound .Edges flat and adherent to base of wound. Periwound is intact.No odor noted. 20ml serous exudate noted in canister. Wound cleansed with Saline. Cavilon Skin Barrier applied periwound then covered with transparent drape. Granulofoam cut to conform to wound. Additional granulofoam cut to accommodate Sensor trac pad. Covered with transparent drsg. NPWT resumed @125mm/Hg to continuous suction. Pt tolerated procedure well. Wounds L BKA wound medial aspect of L BKA hypergranular, oozing small amt of non -odorous serous exudate. Periwound without erythema or induration. Wound urvashi L BKA hypergranular ,oozing small amt of non-odorous serous exudate . Periwound without erythema or induration. Application of Silver Nitrate sticks applied to both woundsfor hypergranulation. Both wounds covered with Gauze then ABD pad and wrapped with Kerlix. Pt denied pain L BKA. Findings: X-ray better demonstrates signs of recent surgery with surgical clips barbara at the site of a below the knee amputation. The cortical margin at the tibial stump appears intact both on x-ray and MRI. MRI examination does demonstrate bone marrow edema in the anterior inferior aspect of the tibial stump. Adjacent soft tissue swelling is present. Given recent surgery the soft tissue changes are expected. The bone marrow edema could be reactive marrow edema or due to osteomyelitis. Suspect the former. Similar signal alteration noted within the left tibial stump (left lower extremity partially imaged on this study on the transcoronal sequences). thank you (5) Infection of amputation stump, right lower extremity Assessment & Plan: much improved d/c planning cont vac on d/c Jaiden Teresa Jan 04, 2019 19:30
[2019-01-04 20:00] VITALS: BP 104/54
[2019-01-04] MEDS: Dyna-Hex 2% Top Sol 2oz TOPIC SCH (20:00)
[2019-01-04] MEDS: Sennosides 8.6mg tab ORAL SCH (21:44)
[2019-01-04] MEDS: Tamsulosin 0.4mg cap ORAL SCH (21:44)
[2019-01-05] VITALS (7 sets, daily range): BP systolic 111–139; BP diastolic 61–79
[2019-01-05] MEDS: Piperacillin/Tazobactam 3.375 GM in NS 110 ML IVPB SCH ×3 (05:24→21:04)
[2019-01-05 06:54] LABS: HEMATOCRIT 20.2 % (42.0-52.0); MEAN CORPUSCULAR VOLUME 96 FL (80-99); PLATELET COUNT 57 K/UL (150-450); RED BLOOD COUNT 2.11 M/UL (4.70-6.10); WHITE BLOOD COUNT 3.5 K/UL (4.8-10.8)
[2019-01-05 06:59] LABS: ANION GAP 6 mmol/L (5-15); BLOOD UREA NITROGEN 6 mg/dL (7-18); CALCIUM 7.8 MG/DL (8.5-10.1); CARBON DIOXIDE 27 MMOL/L (21-32); CHLORIDE 110 MMOL/L (98-107); CREATININE 0.9 MG/DL (0.55-1.30); POTASSIUM 3.3 MMOL/L (3.5-5.1); SODIUM 143 MMOL/L (136-145)
[2019-01-05 07:58] LABS: HEMOGLOBIN 6.8 G/DL (14.2-18.0)
--- NOTE | 2019-01-05 08:51 | General Progress Note ---
Assessment/Plan Assessment/Plan: (1) B/L BKA (2) B/L stump pain (3) s/p stump revision (4) Phantom limb pain The patient will be continued on Dilaudid. The patient was discussed with Dr. Velasquez and Dr. Velasquez concurred. Subjective Date patient seen: Jan 05, 2019 Time patient seen: 08:15 - am Allergies: Coded Allergies: No Known Allergies (Unverified , 01/04/17) Subjective REVIEW OF SYSTEMS: Denies rash, fever, chills, sweating, dizziness, drowsiness, or change in weight. No shortness of breath or chest pain. No nausea, vomiting, or blood in the stool or urine. He is complaining of bilateral lower extremity. SUBJECTIVE: Pt continues to c/o severe pain in his LE with the wound vac still applied to right LE. Has received 7 doses of the Dilaudid in the last 24hrs. The pain in his right amputation is a sharp stabbing pain due to the wound vac Objective Last 24 Hour Vital Signs Date Time Temp Pulse Resp B/P (MAP) Pulse Ox O2 Delivery O2 Flow Rate FiO2 01/05/19 04:00 97.9 89 20 115/63 (80) 94 01/05/19 00:00 97.4 87 18 111/61 (78) 97 01/04/19 21:00 Room Air 01/04/19 20:00 97.5 96 18 104/54 (71) 94 01/04/19 19:16 98.3 01/04/19 16:00 97.1 92 18 98/60 (73) 95 01/04/19 12:00 98.3 86 18 103/61 (75) 96 01/04/19 09:22 Room Air Intake and Output 01/04/19 01/05/19 19:00 07:00 Intake Total 1764.8 ml 857.5 ml Output Total 500 ml 900 ml Balance 1264.8 ml -42.5 ml Intake Oral 480 ml 400 ml IV Total 1284.8 ml 457.5 ml Output Urine Total 500 ml 900 ml # Voids 3 3 Laboratory Tests 01/05/19 05:00: White Blood Count 3.5L, Red Blood Count 2.11L, Hemoglobin 6.8*L, Hematocrit 20.2L, Mean Corpuscular Volume 96, Mean Corpuscular Hemoglobin 32.4H, Mean Corpuscular Hemoglobin Concent 33.9, Red Cell Distribution Width 14.0, Platelet Count 57L, Mean Platelet Volume 8.8, Neutrophils (%) (Auto) , Lymphocytes (%) ( Auto) , Monocytes (%) (Auto) , Eosinophils (%) (Auto) , Basophils (%) (Auto) , Neutrophils % (Manual) [Pending], Lymphocytes % (Manual) [Pending], Platelet Estimate [Pending], Platelet Morphology [Pending], Sodium Level 143, Potassium Level 3.3L, Chloride Level 110H, Carbon Dioxide Level 27, Anion Gap 6, Blood Urea Nitrogen 6L, Creatinine 0.9, Estimat Glomerular Filtration Rate , Glucose Level 91, Calcium Level 7.8L Height (Feet): 5 Height (Inches): 0.00 Weight (Pounds): 160 Objective GENERAL: Alert, awake, and oriented x3. LUNGS: Clear. HEART: S1 S2 Regular. ABDOMEN: Benign. EXTREMITIES: Bilateral itugo-nhw-dumw amputation noted. wound vac applied to right LE. NEURO: No changes. Hiram Griffin Jan 05, 2019 08:51
--- NOTE | 2019-01-05 12:05 | Infectious Diseases Prog Note ---
Assessment/Plan Assessment/Plan IMPRESSION: 1. Amputation stump infection, more in the right side. - cultures; MRSA, Enterococcus ( VRE & Proteus - bone biopsy, like acute osteomyelitis 2 wound dehiscence of right amputation stump. 3. Anemia. 4. Hypothyroidism. 5. History of melanoma. 6. thrombocytopenia 10.Dysuria, ? UTI 11. Severe anemia RECOMMENDATIONS: 1. We will continue with Levaquin X 12 days 2. continue IV Vancomycin & Zosyn Subjective ROS Limited/Unobtainable: No Constitutional: Reports: fatigue Genitourinary: Reports: dysuria Musculoskeletal: Reports: pain, other - in right stump Allergies: Coded Allergies: No Known Allergies (Unverified , 01/04/17) Objective Vital Signs Last 24 Hour Vital Signs Date Time Temp Pulse Resp B/P (MAP) Pulse Ox O2 Delivery O2 Flow Rate FiO2 01/05/19 10:35 98.1 86 16 134/71 (92) 96 01/05/19 08:00 98.8 81 18 119/69 (86) 93 01/05/19 04:00 97.9 89 20 115/63 (80) 94 01/05/19 00:00 97.4 87 18 111/61 (78) 97 01/04/19 21:00 Room Air 01/04/19 20:00 97.5 96 18 104/54 (71) 94 01/04/19 19:16 98.3 01/04/19 16:00 97.1 92 18 98/60 (73) 95 Height (Feet): 5 Height (Inches): 0.00 Weight (Pounds): 160 General Appearance: no acute distress HEENT: mucous membranes moist Respiratory/Chest: lungs clear Cardiovascular: normal rate, other - left arm PICC line Abdomen: soft, non tender Extremities: other - edema of hands, bilateral BKA Skin: ulcers, other - R stump wound-vac Neurologic/Psychiatric: alert, oriented x 3, responsive Laboratory Tests Test 01/05/19 05:00 White Blood Count 3.5 K/UL (4.8-10.8) L Red Blood Count 2.11 M/UL (4.70-6.10) L Hemoglobin 6.8 G/DL (14.2-18.0) *L Hematocrit 20.2 % (42.0-52.0) L Mean Corpuscular Volume 96 FL (80-99) Mean Corpuscular Hemoglobin 32.4 PG (27.0-31.0) H Mean Corpuscular Hemoglobin Concent 33.9 G/DL (32.0-36.0) Red Cell Distribution Width 14.0 % (11.6-14.8) Platelet Count 57 K/UL (150-450) L Mean Platelet Volume 8.8 FL (6.5-10.1) Neutrophils (%) (Auto) % (45.0-75.0) Lymphocytes (%) (Auto) % (20.0-45.0) Monocytes (%) (Auto) % (1.0-10.0) Eosinophils (%) (Auto) % (0.0-3.0) Basophils (%) (Auto) % (0.0-2.0) Differential Total Cells Counted 100 Neutrophils % (Manual) 44 % (45-75) L Lymphocytes % (Manual) 37 % (20-45) Monocytes % (Manual) 14 % (1-10) H Eosinophils % (Manual) 5 % (0-3) H Basophils % (Manual) 0 % (0-2) Band Neutrophils 0 % (0-8) Platelet Estimate Decreased L Platelet Morphology Normal Hypochromasia 1+ Anisocytosis 1+ Sodium Level 143 MMOL/L (136-145) Potassium Level 3.3 MMOL/L (3.5-5.1) L Chloride Level 110 MMOL/L (98-107) H Carbon Dioxide Level 27 MMOL/L (21-32) Anion Gap 6 mmol/L (5-15) Blood Urea Nitrogen 6 mg/dL (7-18) L Creatinine 0.9 MG/DL (0.55-1.30) Estimat Glomerular Filtration Rate mL/min (>60) Glucose Level 91 MG/DL (74-106) Calcium Level 7.8 MG/DL (8.5-10.1) L Current Medications Medications (Trade) Dose Ordered Sig/Trever Route PRN Reason Start Time Stop Time Status Last Admin Dose Admin Chlorhexidine Gluconate (Sammie-Hex 2%) 1 applic DAILY@1999 TOPIC 12/06/18 20:00 01/05/19 19:59 01/03/19 20:35 Hydromorphone HCl (Dilaudid) 2 mg Q3H PRN IVP severe pain 01/03/19 08:45 01/10/19 08:44 01/05/19 10:05 Levofloxacin (Levaquin) 250 mg DAILY ORAL 12/23/18 09:00 01/16/19 23:59 01/05/19 08:55 Naloxone HCl (Narcan) 0.2 mg Q2M PRN IVP RESPRITORY DEPRESSION 12/29/18 08:30 01/28/19 08:29 Piperacillin Sod/ Tazobactam Sod 3.375 gm/Sodium Chloride 110 ml @ 27.5 mls/hr EVERY 8 HOURS IVPB 12/31/18 14:00 01/17/19 23:59 01/05/19 05:24 Sennosides (Senokot) 17.2 mg BEDTIME ORAL 12/06/18 21:00 01/05/19 20:59 01/04/19 21:44 Sodium Chloride 1,000 ml @ 75 mls/hr [id number] IV 12/10/18 09:45 01/09/19 09:44 01/05/19 00:47 Tamsulosin HCl (Flomax) 0.4 mg BEDTIME ORAL 12/30/18 21:00 01/29/19 20:59 01/04/19 21:44 Temazepam (Restoril) 15 mg HSPRN PRN ORAL Insomnia 01/04/19 07:15 01/11/19 07:14 01/05/19 02:23 Temazepam (Restoril) 30 mg HSPRN PRN ORAL Insomnia 01/04/19 07:45 01/11/19 07:14 01/04/19 22:42 Vancomycin HCl (Vanco rx to dose) 1 ea DAILY PRN MISC Per rx protocol 12/31/18 10:30 01/30/19 10:29 Vancomycin/Sodium Chloride 275 ml @ 137.5 mls/ hr Q24H IVPB 01/03/19 14:00 01/08/19 13:59 01/04/19 13:39 Partha Obrien MD Jan 05, 2019 12:05
--- NOTE | 2019-01-05 12:40 | General Progress Note ---
Assessment/Plan Problem List: (1) Leg pain ICD Codes: M79.606 - Leg pain SNOMED: 01652999 (2) Anemia ICD Codes: D64.9 - Anemia, unspecified SNOMED: 557702259 (3) Amputation stump infection ICD Codes: T87.40 - Infection of amputation stump, unspecified extremity SNOMED: 306275843 (4) Postoperative wound closure planning ICD Codes: Z48.1 - Encounter for planned postprocedural wound closure SNOMED: 252612723 (5) Stump injury ICD Codes: T14.8 - Other injury of unspecified body region SNOMED: 437374458 (6) Infection of amputation stump, right lower extremity ICD Codes: T87.43 - Infection of amputation stump, right lower extremity SNOMED: 340192487, 379883953 Assessment/Plan: ue edema dc iv fluid and ordered u/s of UE I&d by dr duarte s/p infected wound dehiscence needs snf placement for wound care and abx Subjective ROS Limited/Unobtainable: Yes Allergies: Coded Allergies: No Known Allergies (Unverified , 01/04/17) Subjective chronic pain s/p i&d of infected wound and amputation site afebrile reviewed chart and labs needs snf placement Objective Last 24 Hour Vital Signs Date Time Temp Pulse Resp B/P (MAP) Pulse Ox O2 Delivery O2 Flow Rate FiO2 01/05/19 10:35 98.1 86 16 134/71 (92) 96 01/05/19 08:00 98.8 81 18 119/69 (86) 93 01/05/19 04:00 97.9 89 20 115/63 (80) 94 01/05/19 00:00 97.4 87 18 111/61 (78) 97 01/04/19 21:00 Room Air 01/04/19 20:00 97.5 96 18 104/54 (71) 94 01/04/19 19:16 98.3 01/04/19 16:00 97.1 92 18 98/60 (73) 95 Intake and Output 01/04/19 01/05/19 19:00 07:00 Intake Total 1764.8 ml 857.5 ml Output Total 500 ml 900 ml Balance 1264.8 ml -42.5 ml Intake Oral 480 ml 400 ml IV Total 1284.8 ml 457.5 ml Output Urine Total 500 ml 900 ml # Voids 3 3 Laboratory Tests 01/05/19 05:00: White Blood Count 3.5L, Red Blood Count 2.11L, Hemoglobin 6.8*L, Hematocrit 20.2L, Mean Corpuscular Volume 96, Mean Corpuscular Hemoglobin 32.4H, Mean Corpuscular Hemoglobin Concent 33.9, Red Cell Distribution Width 14.0, Platelet Count 57L, Mean Platelet Volume 8.8, Neutrophils (%) (Auto) , Lymphocytes (%) ( Auto) , Monocytes (%) (Auto) , Eosinophils (%) (Auto) , Basophils (%) (Auto) , Differential Total Cells Counted 100, Neutrophils % (Manual) 44L, Lymphocytes % (Manual) 37, Monocytes % (Manual) 14H, Eosinophils % (Manual) 5H, Basophils % ( Manual) 0, Band Neutrophils 0, Platelet Estimate DecreasedL, Platelet Morphology Normal, Hypochromasia 1+, Anisocytosis 1+, Sodium Level 143, Potassium Level 3.3L, Chloride Level 110H, Carbon Dioxide Level 27, Anion Gap 6 , Blood Urea Nitrogen 6L, Creatinine 0.9, Estimat Glomerular Filtration Rate , Glucose Level 91, Calcium Level 7.8L Height (Feet): 5 Height (Inches): 0.00 Weight (Pounds): 160 Neck: supple Cardiovascular: normal rate Respiratory/Chest: lungs clear Abdomen: soft Rossy Samuel MD Jan 05, 2019 12:40
--- NOTE | 2019-01-05 12:57 | Surgery Progress Note ---
Surgery Progress Note Subjective Symptoms: improved Objective Last 24 Hour Vital Signs Date Time Temp Pulse Resp B/P (MAP) Pulse Ox O2 Delivery O2 Flow Rate FiO2 01/05/19 10:35 98.1 86 16 134/71 (92) 96 01/05/19 08:00 98.8 81 18 119/69 (86) 93 01/05/19 04:00 97.9 89 20 115/63 (80) 94 01/05/19 00:00 97.4 87 18 111/61 (78) 97 01/04/19 21:00 Room Air 01/04/19 20:00 97.5 96 18 104/54 (71) 94 01/04/19 19:16 98.3 01/04/19 16:00 97.1 92 18 98/60 (73) 95 I&O Intake and Output 01/04/19 01/05/19 18:59 06:59 Intake Total 1764.8 ml 932.5 ml Output Total 500 ml 900 ml Balance 1264.8 ml 32.5 ml Intake Oral 480 ml 400 ml IV Total 1284.8 ml 532.5 ml Output Urine Total 500 ml 900 ml # Voids 3 3 Dressing: dry Wound: clean Drains: wound vac Cardiovascular: RSR Respiratory: clear Abdomen: soft, non-tender, present bowel sounds Extremities: no tenderness, no cyanosis Laboratory Tests Test 01/05/19 05:00 White Blood Count 3.5 K/UL (4.8-10.8) L Red Blood Count 2.11 M/UL (4.70-6.10) L Hemoglobin 6.8 G/DL (14.2-18.0) *L Hematocrit 20.2 % (42.0-52.0) L Mean Corpuscular Volume 96 FL (80-99) Mean Corpuscular Hemoglobin 32.4 PG (27.0-31.0) H Mean Corpuscular Hemoglobin Concent 33.9 G/DL (32.0-36.0) Red Cell Distribution Width 14.0 % (11.6-14.8) Platelet Count 57 K/UL (150-450) L Mean Platelet Volume 8.8 FL (6.5-10.1) Neutrophils (%) (Auto) % (45.0-75.0) Lymphocytes (%) (Auto) % (20.0-45.0) Monocytes (%) (Auto) % (1.0-10.0) Eosinophils (%) (Auto) % (0.0-3.0) Basophils (%) (Auto) % (0.0-2.0) Differential Total Cells Counted 100 Neutrophils % (Manual) 44 % (45-75) L Lymphocytes % (Manual) 37 % (20-45) Monocytes % (Manual) 14 % (1-10) H Eosinophils % (Manual) 5 % (0-3) H Basophils % (Manual) 0 % (0-2) Band Neutrophils 0 % (0-8) Platelet Estimate Decreased L Platelet Morphology Normal Hypochromasia 1+ Anisocytosis 1+ Sodium Level 143 MMOL/L (136-145) Potassium Level 3.3 MMOL/L (3.5-5.1) L Chloride Level 110 MMOL/L (98-107) H Carbon Dioxide Level 27 MMOL/L (21-32) Anion Gap 6 mmol/L (5-15) Blood Urea Nitrogen 6 mg/dL (7-18) L Creatinine 0.9 MG/DL (0.55-1.30) Estimat Glomerular Filtration Rate mL/min (>60) Glucose Level 91 MG/DL (74-106) Calcium Level 7.8 MG/DL (8.5-10.1) L Plan Problems: (1) Amputation stump infection Assessment & Plan: bilateral lower extremity below-knee amputations. On the right side the recent revision flap has dehisced and serous purulent drainage identified with viable sutures and palpable bone. On the left side the flap is intact on the medial aspect there is drainage coming from the wound bed in between the barbara. There is an opening on the lateral aspect approximately 2 cm x 2 cm with unknown depth given its location. We will currently continue with localized wound care as I discussed with the operating orthopedic surgeon about potential management. I discussed with the patient the current findings and the potential necessity for reoperation versus ray amputation. Versus potential salvage. Continue with IV antibiotics s/p debridement by plastic surgery 12/11 wound vac placed today by myself 12/12 d/c planning With follow with local wound care and evaluation We will discuss with orthopedic and medical team Thank you for allowing participate patient's care (2) Sacral decubitus ulcer Assessment & Plan: This is a 88-year-old male with multiple small full- thickness sacral decubitus ulcers. Patient states that he formed because he was laying flat for 15 days at an outside facility. Identified upon admission and initiated care plan. Periwound seems to have prior healing areas as well as acute inflamed areas with full-thickness breakdown approximately 1 cm x 1 cm on the left buttock/sacral cleft and similarly on the right as well. No active drainage. No foul order. Pt presented on admission with keloid scar with hyperpigmentation sacrum from previous pressure injury;confirmed by pt. Dry loose skin noted to R and L sacrum. No open areas noted. Pt denied tenderness when site palpated. Pt resistive to being repositioned on his sides and was educated of potential risks for already compromised skin to breakdown . Pt demonstrated ability to reposition self when cued.Demonstrated to pt on how to utilize side rails to off -lift buttocks and shift weight in bed. Skin lesions noted to R and L scalp. Pt verbalized he has skin cancer and lesions were recently removed. Hypergranular skin lesions also noted to Lateral L thigh. Apply Moisture Barrier Paste to Sacrum. Cover with Optifoam drsg. Change every 3 days and prn. Encourage and assist with repositioning at least every 2hours or as tolerated.Elevate BKA stumps on pillow. Turn every 2 hours. Patient willing and does assist with ensuring that he turns every so often Offload stump pressures with pillow Thank you for allowing me to participate in patient's care will follow with recommendations (3) Postoperative wound closure planning (4) Stump injury Assessment & Plan: s/p debridement by plastic surgery 12/11 wound vac placed today by myself 12/12 d/c planning plan for VAC upon discharge to SNF NPWT R BKA changed to today. Wound resolving(L)2.1cm x (W)5.2cm x (D)0.3cm. [place] granulation at base of wound .Edges flat and adherent to base of wound. Periwound is intact.No odor noted. 20ml serous exudate noted in canister. Wound cleansed with Saline. [place] Skin Barrier applied periwound then covered with transparent drape. Granulofoam cut to conform to wound. Additional granulofoam cut to accommodate Sensor trac pad. Covered with transparent drsg. NPWT resumed @125mm/Hg to continuous suction. Pt tolerated procedure well. Wounds L BKA wound medial aspect of L BKA hypergranular, oozing small amt of non -odorous serous exudate. Periwound without erythema or induration. Wound urvashi L BKA hypergranular ,oozing small amt of non-odorous serous exudate . Periwound without erythema or induration. Application of Silver Nitrate sticks applied to both woundsfor hypergranulation. Both wounds covered with Gauze then ABD pad and wrapped with Kerlix. Pt denied pain L BKA. Findings: X-ray better demonstrates signs of recent surgery with surgical clips barbara at the site of a below the knee amputation. The cortical margin at the tibial stump appears intact both on x-ray and MRI. MRI examination does demonstrate bone marrow edema in the anterior inferior aspect of the tibial stump. Adjacent soft tissue swelling is present. Given recent surgery the soft tissue changes are expected. The bone marrow edema could be reactive marrow edema or due to osteomyelitis. Suspect the former. Similar signal alteration noted within the left tibial stump (left lower extremity partially imaged on this study on the transcoronal sequences). thank you (5) Infection of amputation stump, right lower extremity Assessment & Plan: much improved d/c planning cont vac on d/c Jaiden Teresa Jan 05, 2019 12:57
--- NOTE | 2019-01-05 13:50 | Hematology/Onc Progress Note ---
Assessment/Plan Assessment/Plan IMPRESSION/RECS: # Pacnytopenia -- initially presented with Anemia due to underlying iron deficiency, r/o gi bleed - also with multifactorial component, also may be related to abx --> anemia panel reviewed and noted with Iron def --> has been started on iv iron x 5 day course --> hgb transfuse if hgb lower than 7 --> hgb trend 10.6-->10.1-->9.9-->9.3-->10.7-->8.1-->8.2 --> HOLDING OFF LABS q3 days --> occult ++, dw pcp, outpatient w/u with gi --> plt trend 117-->148k-->46-->48-->48->52 --> wbc trend 5-->4-3.5 --> hiv negative, hepatitis panel negative --> imaging abd reviewed --> meds reviewed, consider abx as per id care # History of melanoma. --> currently in remission # Amputation stump infection, BKA +++, more on right side --> on cefepime/vanc--> leva/vanc x 34 d--> zosyn, vanc, levaquin --> as per id recs --> surg, pod recs --> s/p i&d 01/02 # Wound dehiscence of right amputation stump. --> eval with surg, pod # Hypothyroidism. --> started on synthroid # Dvt ppx lovenox sq --> nonambulatory Time of note does not necessarily correspond to when patient seen Greatly appreciate consultation. Subjective Constitutional: Denies: no symptoms, chills, fever, malaise, weakness, other HEENT: Denies: no symptoms, eye pain, blurred vision, tearing, double vision, ear pain, ear discharge, nose pain, nose congestion, throat pain, throat swelling, mouth pain, mouth swelling, other Cardiovascular: Denies: no symptoms, chest pain, edema, irregular heart rate, lightheadedness, palpitations, syncope, other Respiratory: Denies: no symptoms, cough, shortness of breath, SOB with excertion, SOB at rest, sputum, wheezing, other Gastrointestinal/Abdominal: Denies: no symptoms, abdomen distended, abdominal pain, black stools, tarry stools, blood in stool, constipated, diarrhea, difficulty swallowing, nausea, poor appetite, poor fluid intake, rectal bleeding , vomiting, other Genitourinary: Denies: no symptoms, burning, discharge, frequency, flank pain, hematuria, incontinence, pain, urgency, other Neurologic/Psychiatric: Denies: no symptoms, anxiety, depressed, emotional problems, headache, numbness, paresthesia, pre-existing deficit, seizure, tingling, tremors, weakness, other Endocrine: Denies: no symptoms, excessive sweating, flushing, intolerance to cold, intolerance to heat, increased hunger, increased thirst, increased urine, unexplained weight gain, unexplained weight loss, other Allergies: Coded Allergies: No Known Allergies (Unverified , 01/04/17) Subjective 12/09: no events, remains on abx, has been started on iv iron, hgb 9.9 12/11: s/p right leg wound debridement, cultures pending 12/12: vs stable, on abx, cultures noted, bleeding noted on dressing 12/13: no bleeding or chills, labs reviewed, no major night sweats 12/14: no events, no bleeding, wants to take off wound vac and take a shower, no f 12/15: no f/c, vs stable, no bleeding, no acute events, meds reviewed 12/17: leg pain, 06/11, refusing labs currently, no f/c, no bleeding 12/18: no changes, no bleeding, wound better 12/19: refusing labs, pain less today, laying flat 12/20: complaining with rn has had too many blood draws 12/21: no bleeding, chills or night sweats, no major changes 12/22: complaining of some pain, does not want any further lab draws 12/23: no bleeding, no night sweats, no major changes, right stump pain 12/25; refusing care, seen by id, no major changes, no bleeding 12/26: piccline in place, no events, doesn't want am lab draws 12/27: awake and alert, no acute events, afebrile 12/28: no events to report o/n, is on levaquin and zyvox x 20 days, no bleeding 12/29: no acute events, c/o pain, h/h stable, repeat cbc tomorrow 12/30: berating staff this am, does not want to draw blood, even though hgb 8.1 01/01: no bleeding, no events hgb was 8.2, 2 days ago, no major changes 01/02: s/p i&d, urine cx and hep panel both negative, on abx 01/03: no bleeding noted, no night sweats, labs reviewed, wound vac++ 01/04: no bleeding, with picc, labs noted, no major changes 01/05: no bleeding, sleeping comfortably, have ordered us abd to r/o cirrhosis Objective Objective Current Medications Medications (Trade) Dose Ordered Sig/Trever Route PRN Reason Start Time Stop Time Status Last Admin Dose Admin Chlorhexidine Gluconate (Sammie-Hex 2%) 1 applic DAILY@1999 TOPIC 12/06/18 20:00 01/05/19 19:59 01/03/19 20:35 Hydromorphone HCl (Dilaudid) 2 mg Q3H PRN IVP severe pain 01/03/19 08:45 01/10/19 08:44 01/05/19 10:05 Levofloxacin (Levaquin) 250 mg DAILY ORAL 12/23/18 09:00 01/16/19 23:59 01/05/19 08:55 Naloxone HCl (Narcan) 0.2 mg Q2M PRN IVP RESPRITORY DEPRESSION 12/29/18 08:30 01/28/19 08:29 Piperacillin Sod/ Tazobactam Sod 3.375 gm/Sodium Chloride 110 ml @ 27.5 mls/hr EVERY 8 HOURS IVPB 12/31/18 14:00 01/17/19 23:59 01/05/19 05:24 Sennosides (Senokot) 17.2 mg BEDTIME ORAL 12/06/18 21:00 01/05/19 20:59 01/04/19 21:44 Tamsulosin HCl (Flomax) 0.4 mg BEDTIME ORAL 12/30/18 21:00 01/29/19 20:59 01/04/19 21:44 Temazepam (Restoril) 15 mg HSPRN PRN ORAL Insomnia 01/04/19 07:15 01/11/19 07:14 01/05/19 02:23 Temazepam (Restoril) 30 mg HSPRN PRN ORAL Insomnia 01/04/19 07:45 01/11/19 07:14 01/04/19 22:42 Vancomycin HCl (Vanco rx to dose) 1 ea DAILY PRN MISC Per rx protocol 12/31/18 10:30 01/30/19 10:29 Vancomycin/Sodium Chloride 275 ml @ 137.5 mls/ hr Q24H IVPB 01/03/19 14:00 01/08/19 13:59 01/04/19 13:39 Last 24 Hour Vital Signs Date Time Temp Pulse Resp B/P (MAP) Pulse Ox O2 Delivery O2 Flow Rate FiO2 01/05/19 10:35 98.1 86 16 134/71 (92) 96 01/05/19 08:00 98.8 81 18 119/69 (86) 93 01/05/19 04:00 97.9 89 20 115/63 (80) 94 01/05/19 00:00 97.4 87 18 111/61 (78) 97 01/04/19 21:00 Room Air 01/04/19 20:00 97.5 96 18 104/54 (71) 94 01/04/19 19:16 98.3 01/04/19 16:00 97.1 92 18 98/60 (73) 95 01/04/19 12:00 98.3 86 18 103/61 (75) 96 01/04/19 09:22 Room Air 01/04/19 08:00 98.3 97 18 100/60 (73) 96 01/04/19 00:00 98.9 96 18 96/56 (69) 95 01/03/19 21:00 Room Air 01/03/19 20:00 98.4 93 18 98/59 (72) 94 Intake and Output 01/04/19 01/05/19 18:59 06:59 Intake Total 1764.8 ml 932.5 ml Output Total 500 ml 900 ml Balance 1264.8 ml 32.5 ml Intake Oral 480 ml 400 ml IV Total 1284.8 ml 532.5 ml Output Urine Total 500 ml 900 ml # Voids 3 3 Labs Test 01/03/19 11:50 01/05/19 05:00 01/05/19 12:50 Vancomycin Level Trough 8.2 ug/mL (5.0-12.0) White Blood Count 3.5 K/UL (4.8-10.8) Red Blood Count 2.11 M/UL (4.70-6.10) Hemoglobin 6.8 G/DL (14.2-18.0) Hematocrit 20.2 % (42.0-52.0) Mean Corpuscular Volume 96 FL (80-99) Mean Corpuscular Hemoglobin 32.4 PG (27.0-31.0) Mean Corpuscular Hemoglobin Concent 33.9 G/DL (32.0-36.0) Red Cell Distribution Width 14.0 % (11.6-14.8) Platelet Count 57 K/UL (150-450) Mean Platelet Volume 8.8 FL (6.5-10.1) Neutrophils (%) (Auto) % (45.0-75.0) Lymphocytes (%) (Auto) % (20.0-45.0) Monocytes (%) (Auto) % (1.0-10.0) Eosinophils (%) (Auto) % (0.0-3.0) Basophils (%) (Auto) % (0.0-2.0) Differential Total Cells Counted 100 Neutrophils % (Manual) 44 % (45-75) Lymphocytes % (Manual) 37 % (20-45) Monocytes % (Manual) 14 % (1-10) Eosinophils % (Manual) 5 % (0-3) Basophils % (Manual) 0 % (0-2) Band Neutrophils 0 % (0-8) Platelet Estimate Decreased Platelet Morphology Normal Hypochromasia 1+ Anisocytosis 1+ Sodium Level 143 MMOL/L (136-145) Potassium Level 3.3 MMOL/L (3.5-5.1) Chloride Level 110 MMOL/L (98-107) Carbon Dioxide Level 27 MMOL/L (21-32) Anion Gap 6 mmol/L (5-15) Blood Urea Nitrogen 6 mg/dL (7-18) Creatinine 0.9 MG/DL (0.55-1.30) Estimat Glomerular Filtration Rate mL/min (>60) Glucose Level 91 MG/DL (74-106) Calcium Level 7.8 MG/DL (8.5-10.1) Height (Feet): 5 Height (Inches): 0.00 Weight (Pounds): 160 Objective Vitals: reviewed Gen: Nad Pulm: Ctab CV: rrr, no mgr Abd: soft, nt, nd Ext: b/l bka noted, dressings+, wound vac Oseas Tong MD Jan 05, 2019 13:50
[2019-01-05] MEDS: Vancomycin 1.5gm/NS Premix IVPB SCH (15:11)
[2019-01-05] MEDS ORDERED: Tubing IV Secondary IV ONE (16:16)
[2019-01-05] MEDS ORDERED: NS 275ml ONE (16:16)
[2019-01-05] MEDS: Tamsulosin 0.4mg cap ORAL SCH (21:03)
[2019-01-06] VITALS: BP 116/50
[2019-01-06 04:00] VITALS: BP 123/67
[2019-01-06] MEDS: Piperacillin/Tazobactam 3.375 GM in NS 110 ML IVPB SCH ×3 (06:23→20:57)
[2019-01-06 07:24] LABS: ANION GAP 5 mmol/L (5-15); BLOOD UREA NITROGEN 7 mg/dL (7-18); CALCIUM 7.8 MG/DL (8.5-10.1); CARBON DIOXIDE 27 MMOL/L (21-32); CHLORIDE 112 MMOL/L (98-107); POTASSIUM 3.1 MMOL/L (3.5-5.1); SODIUM 144 MMOL/L (136-145)
[2019-01-06 07:27] LABS: MEAN CORPUSCULAR VOLUME 93 FL (80-99); PLATELET COUNT 87 K/UL (150-450); RED BLOOD COUNT 2.36 M/UL (4.70-6.10); RED CELL DISTRIBUTION WIDTH 14.4 % (11.6-14.8); WHITE BLOOD COUNT 4.3 K/UL (4.8-10.8)
[2019-01-06 07:28] LABS: HEMOGLOBIN 7.5 G/DL (14.2-18.0)
[2019-01-06 08:00] VITALS: BP 133/64
--- NOTE | 2019-01-06 10:42 | Consultation ---
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 Amputation stump infection, more in the right side. - cultures; MRSA, Enterococcus ( VRE & Proteus - bone biopsy, like acute osteomyelitis 2 wound dehiscence of right amputation stump. 3. Anemia. 4. Hypothyroidism. 5. History of melanoma. 6. thrombocytopenia 10.Dysuria, ? UTI Plan: PO K Anemia sales continue rest Jon Craft MD Jan 06, 2019 10:42
--- NOTE | 2019-01-06 10:48 | General Progress Note ---
Assessment/Plan Problem List: (1) Anemia ICD Codes: D64.9 - Anemia, unspecified SNOMED: 942221123 (2) Amputation stump infection ICD Codes: T87.40 - Infection of amputation stump, unspecified extremity SNOMED: 597160509 (3) Stump injury ICD Codes: T14.8 - Other injury of unspecified body region SNOMED: 558858608 (4) Postoperative wound closure planning ICD Codes: Z48.1 - Encounter for planned postprocedural wound closure SNOMED: 457941985 (5) Infection of amputation stump, right lower extremity ICD Codes: T87.43 - Infection of amputation stump, right lower extremity SNOMED: 350023777, 734390220 Status: stable, progressing Assessment/Plan: wound care abx pain control cbc bmp am Subjective Constitutional: Reports: weakness Allergies: Coded Allergies: No Known Allergies (Unverified , 01/04/17) All Systems: reviewed and negative except above Subjective sleepy calm Objective Last 24 Hour Vital Signs Date Time Temp Pulse Resp B/P (MAP) Pulse Ox O2 Delivery O2 Flow Rate FiO2 01/06/19 08:00 97.7 83 19 133/64 (87) 93 01/06/19 04:00 98.4 79 18 123/67 (85) 96 01/06/19 00:00 98.2 100 20 116/50 (72) 97 01/05/19 21:00 Room Air 01/05/19 20:00 98.2 85 18 139/70 (93) 95 01/05/19 16:00 98.4 83 19 126/79 (95) 95 01/05/19 12:00 98.0 75 18 132/75 (94) 95 Intake and Output 01/05/19 01/06/19 19:00 07:00 Intake Total 800 ml 110.0 ml Output Total 400 ml Balance 800 ml -290.0 ml IV Total 110.0 ml Other 800 ml Output Urine Total 400 ml # Voids 4 2 # Bowel Movements 1 Laboratory Tests 01/05/19 12:50: Vancomycin Level Trough 12.8H 01/06/19 06:55: White Blood Count 4.3L, Red Blood Count 2.36L, Hemoglobin 7.5L, Hematocrit 22.0L , Mean Corpuscular Volume 93, Mean Corpuscular Hemoglobin 31.8H, Mean Corpuscular Hemoglobin Concent 34.2, Red Cell Distribution Width 14.4, Platelet Count 87#L, Mean Platelet Volume 8.6, Neutrophils (%) (Auto) , Lymphocytes (%) ( Auto) , Monocytes (%) (Auto) , Eosinophils (%) (Auto) , Basophils (%) (Auto) , Neutrophils % (Manual) [Pending], Lymphocytes % (Manual) [Pending], Platelet Estimate [Pending], Platelet Morphology [Pending], Sodium Level 144, Potassium Level 3.1L, Chloride Level 112H, Carbon Dioxide Level 27, Anion Gap 5, Blood Urea Nitrogen 7, Creatinine 1.0, Estimat Glomerular Filtration Rate , Glucose Level 87, Calcium Level 7.8L Height (Feet): 5 Height (Inches): 0.00 Weight (Pounds): 160 General Appearance: lethargic EENT: normal ENT inspection Neck: normal alignment Cardiovascular: normal peripheral pulses, normal rate, regular rhythm Respiratory/Chest: chest wall non-tender, lungs clear, normal breath sounds Abdomen: normal bowel sounds, non tender, soft Extremities: normal inspection Edema: no edema noted Arm (L), no edema noted Arm (R), no edema noted Leg (L), no edema noted Leg (R), no edema noted Pedal (L), no edema noted Pedal (R), no edema noted Generalized Neurologic: motor weakness Skin: normal pigmentation, warm/dry Toi Jeff DO Jan 06, 2019 10:48
[2019-01-06 12:00] VITALS: BP 121/66
--- NOTE | 2019-01-06 13:25 | Surgery Progress Note ---
Surgery Progress Note Subjective Additional Comments No acute events. Doing well. Pending placement. Discussed with patient potential removal of wound VAC and continuation with dressing changes upon discharge. Objective Last 24 Hour Vital Signs Date Time Temp Pulse Resp B/P (MAP) Pulse Ox O2 Delivery O2 Flow Rate FiO2 01/06/19 12:00 97.9 85 18 121/66 (84) 95 01/06/19 08:00 97.7 83 19 133/64 (87) 93 01/06/19 04:00 98.4 79 18 123/67 (85) 96 01/06/19 00:00 98.2 100 20 116/50 (72) 97 01/05/19 21:00 Room Air 01/05/19 20:00 98.2 85 18 139/70 (93) 95 01/05/19 16:00 98.4 83 19 126/79 (95) 95 I&O Intake and Output 01/05/19 01/06/19 19:00 07:00 Intake Total 800 ml 110.0 ml Output Total 400 ml Balance 800 ml -290.0 ml IV Total 110.0 ml Other 800 ml Output Urine Total 400 ml # Voids 4 2 # Bowel Movements 1 Dressing: dry Wound: clean Drains: wound vac Cardiovascular: RSR Respiratory: clear Abdomen: soft, non-tender, present bowel sounds, non-distended Extremities: no tenderness, no cyanosis Laboratory Tests Test 01/06/19 06:55 White Blood Count 4.3 K/UL (4.8-10.8) L Red Blood Count 2.36 M/UL (4.70-6.10) L Hemoglobin 7.5 G/DL (14.2-18.0) L Hematocrit 22.0 % (42.0-52.0) L Mean Corpuscular Volume 93 FL (80-99) Mean Corpuscular Hemoglobin 31.8 PG (27.0-31.0) H Mean Corpuscular Hemoglobin Concent 34.2 G/DL (32.0-36.0) Red Cell Distribution Width 14.4 % (11.6-14.8) Platelet Count 87 K/UL (150-450) #L Mean Platelet Volume 8.6 FL (6.5-10.1) Neutrophils (%) (Auto) % (45.0-75.0) Lymphocytes (%) (Auto) % (20.0-45.0) Monocytes (%) (Auto) % (1.0-10.0) Eosinophils (%) (Auto) % (0.0-3.0) Basophils (%) (Auto) % (0.0-2.0) Differential Total Cells Counted 100 Neutrophils % (Manual) 67 % (45-75) Lymphocytes % (Manual) 21 % (20-45) Monocytes % (Manual) 9 % (1-10) Eosinophils % (Manual) 1 % (0-3) Basophils % (Manual) 0 % (0-2) Myelocytes % 2 % (0-0) H Band Neutrophils 0 % (0-8) Platelet Estimate Decreased L Platelet Morphology Normal Red Blood Cell Morphology Normal Sodium Level 144 MMOL/L (136-145) Potassium Level 3.1 MMOL/L (3.5-5.1) L Chloride Level 112 MMOL/L (98-107) H Carbon Dioxide Level 27 MMOL/L (21-32) Anion Gap 5 mmol/L (5-15) Blood Urea Nitrogen 7 mg/dL (7-18) Creatinine 1.0 MG/DL (0.55-1.30) Estimat Glomerular Filtration Rate mL/min (>60) Glucose Level 87 MG/DL (74-106) Calcium Level 7.8 MG/DL (8.5-10.1) L Plan Problems: (1) Amputation stump infection Assessment & Plan: bilateral lower extremity below-knee amputations. On the right side the recent revision flap has dehisced and serous purulent drainage identified with viable sutures and palpable bone. On the left side the flap is intact on the medial aspect there is drainage coming from the wound bed in between the barbara. There is an opening on the lateral aspect approximately 2 cm x 2 cm with unknown depth given its location. We will currently continue with localized wound care as I discussed with the operating orthopedic surgeon about potential management. I discussed with the patient the current findings and the potential necessity for reoperation versus ray amputation. Versus potential salvage. Continue with IV antibiotics s/p debridement by plastic surgery 12/11 wound vac placed today by myself 12/12 d/c planning With follow with local wound care and evaluation We will discuss with orthopedic and medical team Thank you for allowing participate patient's care (2) Sacral decubitus ulcer Assessment & Plan: This is a 88-year-old male with multiple small full- thickness sacral decubitus ulcers. Patient states that he formed because he was laying flat for 15 days at an outside facility. Identified upon admission and initiated care plan. Periwound seems to have prior healing areas as well as acute inflamed areas with full-thickness breakdown approximately 1 cm x 1 cm on the left buttock/sacral cleft and similarly on the right as well. No active drainage. No foul order. Pt presented on admission with keloid scar with hyperpigmentation sacrum from previous pressure injury;confirmed by pt. Dry loose skin noted to R and L sacrum. No open areas noted. Pt denied tenderness when site palpated. Pt resistive to being repositioned on his sides and was educated of potential risks for already compromised skin to breakdown . Pt demonstrated ability to reposition self when cued.Demonstrated to pt on how to utilize side rails to off -lift buttocks and shift weight in bed. Skin lesions noted to R and L scalp. Pt verbalized he has skin cancer and lesions were recently removed. Hypergranular skin lesions also noted to Lateral L thigh. Apply Moisture Barrier Paste to Sacrum. Cover with Optifoam drsg. Change every 3 days and prn. Encourage and assist with repositioning at least every 2hours or as tolerated.Elevate BKA stumps on pillow. Turn every 2 hours. Patient willing and does assist with ensuring that he turns every so often Offload stump pressures with pillow Thank you for allowing me to participate in patient's care will follow with recommendations (3) Postoperative wound closure planning (4) Stump injury Assessment & Plan: s/p debridement by plastic surgery 12/11 wound vac placed today by myself 12/12 d/c planning plan for VAC upon discharge to SNF NPWT R BKA changed to today. Wound resolving(L)2.1cm x (W)5.2cm x (D)0.3cm. Cowen granulation at base of wound .Edges flat and adherent to base of wound. Periwound is intact.No odor noted. 20ml serous exudate noted in canister. Wound cleansed with Saline. Cavilon Skin Barrier applied periwound then covered with transparent drape. Granulofoam cut to conform to wound. Additional granulofoam cut to accommodate Sensor trac pad. Covered with transparent drsg. NPWT resumed @125mm/Hg to continuous suction. Pt tolerated procedure well. Wounds L BKA wound medial aspect of L BKA hypergranular, oozing small amt of non -odorous serous exudate. Periwound without erythema or induration. Wound urvashi L BKA hypergranular ,oozing small amt of non-odorous serous exudate . Periwound without erythema or induration. Application of Silver Nitrate sticks applied to both woundsfor hypergranulation. Both wounds covered with Gauze then ABD pad and wrapped with Kerlix. Pt denied pain L BKA. Findings: X-ray better demonstrates signs of recent surgery with surgical clips barbara at the site of a below the knee amputation. The cortical margin at the tibial stump appears intact both on x-ray and MRI. MRI examination does demonstrate bone marrow edema in the anterior inferior aspect of the tibial stump. Adjacent soft tissue swelling is present. Given recent surgery the soft tissue changes are expected. The bone marrow edema could be reactive marrow edema or due to osteomyelitis. Suspect the former. Similar signal alteration noted within the left tibial stump (left lower extremity partially imaged on this study on the transcoronal sequences). thank you (5) Infection of amputation stump, right lower extremity Assessment & Plan: much improved d/c planning cont vac on d/c Jaiden Teresa Jan 06, 2019 13:25
[2019-01-06] MEDS: Vancomycin 1.5gm/NS Premix IVPB SCH (13:32)
[2019-01-06 16:00] VITALS: BP 141/80
[2019-01-06 20:00] VITALS: BP 108/63
[2019-01-06] MEDS: Tamsulosin 0.4mg cap ORAL SCH (20:56)
[2019-01-06] MEDS: Dyna-Hex 2% Top Sol 2oz TOPIC SCH (20:56)
[2019-01-06] MEDS ORDERED: NS 275ml ONE (22:50)
[2019-01-06] MEDS ORDERED: Tubing IV Secondary IV ONE (22:50)
[2019-01-06] MEDS ORDERED: Tubing Blood Filter IV ONE (22:50)
[2019-01-07] VITALS: BP 96/62
[2019-01-07 04:00] VITALS: BP 119/73
[2019-01-07] MEDS: Piperacillin/Tazobactam 3.375 GM in NS 110 ML IVPB SCH (06:19)
[2019-01-07 08:00] VITALS: BP 116/74
--- NOTE | 2019-01-07 09:53 | General Progress Note ---
Assessment/Plan Problem List: (1) Anemia ICD Codes: D64.9 - Anemia, unspecified SNOMED: 323360931 (2) Amputation stump infection ICD Codes: T87.40 - Infection of amputation stump, unspecified extremity SNOMED: 734390731 (3) Stump injury ICD Codes: T14.8 - Other injury of unspecified body region SNOMED: 001849706 (4) Postoperative wound closure planning ICD Codes: Z48.1 - Encounter for planned postprocedural wound closure SNOMED: 301113046 (5) Infection of amputation stump, right lower extremity ICD Codes: T87.43 - Infection of amputation stump, right lower extremity SNOMED: 387164041, [id number] Status: stable, progressing Assessment/Plan: wound care abx pain control cbc bmp am Subjective Constitutional: Reports: weakness Allergies: Coded Allergies: No Known Allergies (Unverified , 01/04/17) All Systems: reviewed and negative except above Subjective sleepy calm Objective Last 24 Hour Vital Signs Date Time Temp Pulse Resp B/P (MAP) Pulse Ox O2 Delivery O2 Flow Rate FiO2 01/07/19 08:00 97.3 86 18 116/74 (88) 93 01/07/19 04:00 97.9 81 18 119/73 (88) 96 01/07/19 00:00 98.9 65 18 96/62 (73) 95 01/06/19 21:00 Room Air 01/06/19 20:00 99.0 96 19 108/63 (78) 95 01/06/19 16:00 98.5 91 20 141/80 (100) 98 01/06/19 12:00 97.9 85 18 121/66 (84) 95 Intake and Output 01/06/19 01/07/19 19:00 07:00 Intake Total 1185.0 ml 570.0 ml Output Total 0 ml 600 ml Balance 1185.0 ml -30.0 ml Intake Oral 460 ml IV Total 385.0 ml 110.0 ml Other 800 ml Output Urine Total 600 ml Drainage Total 0 ml # Voids 1 # Bowel Movements 3 Height (Feet): 5 Height (Inches): 0.00 Weight (Pounds): 160 General Appearance: lethargic EENT: normal ENT inspection Neck: normal alignment Cardiovascular: normal peripheral pulses, normal rate, regular rhythm Respiratory/Chest: chest wall non-tender, lungs clear, normal breath sounds Abdomen: normal bowel sounds, non tender, soft Extremities: normal inspection Edema: no edema noted Arm (L), no edema noted Arm (R), no edema noted Leg (L), no edema noted Leg (R), no edema noted Pedal (L), no edema noted Pedal (R), no edema noted Generalized Neurologic: motor weakness Skin: normal pigmentation, warm/dry Toi Jeff DO Jan 07, 2019 09:53
--- NOTE | 2019-01-07 10:47 | Infectious Diseases Prog Note ---
Assessment/Plan Assessment/Plan IMPRESSION: 1. Amputation stump infection, more in the right side. - cultures; MRSA, Enterococcus ( VRE & Proteus - bone biopsy, like acute osteomyelitis 2 wound dehiscence of right amputation stump. 3. Anemia. 4. Hypothyroidism. 5. History of melanoma. 6. thrombocytopenia 10.Dysuria, ? UTI 11. Severe anemia RECOMMENDATIONS: 1. We will continue with Levaquin X 10 days 2. continue IV Vancomycin 3. Discontinue Zosyn Subjective ROS Limited/Unobtainable: No Constitutional: Reports: no symptoms Respiratory: Reports: no symptoms Gastrointestinal/Abdominal: Reports: no symptoms Genitourinary: Reports: dysuria Musculoskeletal: Reports: pain Allergies: Coded Allergies: No Known Allergies (Unverified , 01/04/17) Objective Vital Signs Last 24 Hour Vital Signs Date Time Temp Pulse Resp B/P (MAP) Pulse Ox O2 Delivery O2 Flow Rate FiO2 01/07/19 09:00 Room Air 01/07/19 08:00 97.3 86 18 116/74 (88) 93 01/07/19 04:00 97.9 81 18 119/73 (88) 96 01/07/19 00:00 98.9 65 18 96/62 (73) 95 01/06/19 21:00 Room Air 01/06/19 20:00 99.0 96 19 108/63 (78) 95 01/06/19 16:00 98.5 91 20 141/80 (100) 98 01/06/19 12:00 97.9 85 18 121/66 (84) 95 Height (Feet): 5 Height (Inches): 0.00 Weight (Pounds): 160 General Appearance: no acute distress HEENT: mucous membranes moist Respiratory/Chest: lungs clear Cardiovascular: normal rate, other - PICC line Extremities: other - edema of hands. Bilateral BKA Skin: ulcers, other - developing pressure ulcers on buttocks Current Medications Medications (Trade) Dose Ordered Sig/Trever Route PRN Reason Start Time Stop Time Status Last Admin Dose Admin Chlorhexidine Gluconate (Sammie-Hex 2%) 1 applic DAILY@1999 TOPIC 01/06/19 20:00 02/05/19 19:59 01/06/19 20:56 Hydromorphone HCl (Dilaudid) 2 mg Q3H PRN IVP severe pain 01/03/19 08:45 01/10/19 08:44 01/07/19 08:33 Levofloxacin (Levaquin) 250 mg DAILY ORAL 12/23/18 09:00 01/16/19 23:59 01/07/19 08:33 Naloxone HCl (Narcan) 0.2 mg Q2M PRN IVP RESPRITORY DEPRESSION 12/29/18 08:30 01/28/19 08:29 Piperacillin Sod/ Tazobactam Sod 3.375 gm/Sodium Chloride 110 ml @ 27.5 mls/hr EVERY 8 HOURS IVPB 12/31/18 14:00 01/17/19 23:59 01/07/19 06:19 Potassium Chloride (K-Dur) 40 meq TWICE A DAY ORAL 01/06/19 10:00 02/05/19 09:59 01/06/19 17:38 Tamsulosin HCl (Flomax) 0.4 mg BEDTIME ORAL 12/30/18 21:00 01/29/19 20:59 01/06/19 20:56 Temazepam (Restoril) 15 mg HSPRN PRN ORAL Insomnia 01/04/19 07:15 01/11/19 07:14 01/06/19 23:38 Temazepam (Restoril) 30 mg HSPRN PRN ORAL Insomnia 01/04/19 07:45 01/11/19 07:14 01/04/19 22:42 Vancomycin HCl (Vanco rx to dose) 1 ea DAILY PRN MISC Per rx protocol 12/31/18 10:30 01/30/19 10:29 Vancomycin/Sodium Chloride 275 ml @ 137.5 mls/ hr Q24H IVPB 01/03/19 14:00 01/08/19 13:59 01/06/19 13:32 Partha Obrien MD Jan 07, 2019 10:47
--- NOTE | 2019-01-07 11:35 | General Progress Note ---
Assessment/Plan Assessment/Plan: (1) B/L BKA (2) B/L stump pain (3) s/p stump revision (4) Phantom limb pain The patient will be continued on Dilaudid. The patient was discussed with Dr. Velasquez and Dr. Velasquez concurred. Subjective Date patient seen: Jan 07, 2019 Time patient seen: 11:15 - am Allergies: Coded Allergies: No Known Allergies (Unverified , 01/04/17) Subjective REVIEW OF SYSTEMS: Denies rash, fever, chills, sweating, dizziness, drowsiness, or change in weight. No shortness of breath or chest pain. No nausea, vomiting, or blood in the stool or urine. He is complaining of bilateral lower extremity. SUBJECTIVE: Pt is showing no signs of pain or distress. Received 8 doses of Dilaudid in the last 24hrs. No new complaints at this time. Objective Last 24 Hour Vital Signs Date Time Temp Pulse Resp B/P (MAP) Pulse Ox O2 Delivery O2 Flow Rate FiO2 01/07/19 09:00 Room Air 01/07/19 08:00 97.3 86 18 116/74 (88) 93 01/07/19 04:00 97.9 81 18 119/73 (88) 96 01/07/19 00:00 98.9 65 18 96/62 (73) 95 01/06/19 21:00 Room Air 01/06/19 20:00 99.0 96 19 108/63 (78) 95 01/06/19 16:00 98.5 91 20 141/80 (100) 98 01/06/19 12:00 97.9 85 18 121/66 (84) 95 Intake and Output 01/06/19 01/07/19 19:00 07:00 Intake Total 1185.0 ml 570.0 ml Output Total 0 ml 600 ml Balance 1185.0 ml -30.0 ml Intake Oral 460 ml IV Total 385.0 ml 110.0 ml Other 800 ml Output Urine Total 600 ml Drainage Total 0 ml # Voids 1 # Bowel Movements 3 Height (Feet): 5 Height (Inches): 0.00 Weight (Pounds): 160 Objective GENERAL: Alert, awake, and oriented x3. LUNGS: Clear. HEART: S1 S2 Regular. ABDOMEN: Benign. EXTREMITIES: Bilateral [id number] amputation noted. wound vac applied to right LE. NEURO: No changes. Hiram Griffin Jan 07, 2019 11:35
[2019-01-07 11:40] LABS: BASOPHILS % (AUTO) 0.7 % (0.0-2.0); EOSINOPHILS % (AUTO) 5.1 % (0.0-3.0); HEMATOCRIT 23.6 % (42.0-52.0); LYMPHOCYTES % (AUTO) 17.6 % (20.0-45.0); MEAN CORPUSCULAR VOLUME 94 FL (80-99); MONOCYTES % (AUTO) 7.8 % (1.0-10.0); NEUTROPHILS % (AUTO) 68.9 % (45.0-75.0); PLATELET COUNT 116 K/UL (150-450); RED BLOOD COUNT 2.51 M/UL (4.70-6.10); RED CELL DISTRIBUTION WIDTH 15.2 % (11.6-14.8); WHITE BLOOD COUNT 5.2 K/UL (4.8-10.8)
--- NOTE | 2019-01-07 11:50 | Nephrology Progress Note ---
Assessment/Plan Problem List: (1) Hypokalemia (2) Anemia Assessment Low K LowHgb Plan refuses transfusion and blood work Subjective ROS Limited/Unobtainable: No Objective Objective Last 24 Hour Vital Signs Date Time Temp Pulse Resp B/P (MAP) Pulse Ox O2 Delivery O2 Flow Rate FiO2 01/07/19 09:00 Room Air 01/07/19 08:00 97.3 86 18 116/74 (88) 93 01/07/19 04:00 97.9 81 18 119/73 (88) 96 01/07/19 00:00 98.9 65 18 96/62 (73) 95 01/06/19 21:00 Room Air 01/06/19 20:00 99.0 96 19 108/63 (78) 95 01/06/19 16:00 98.5 91 20 141/80 (100) 98 01/06/19 12:00 97.9 85 18 121/66 (84) 95 Intake and Output 01/06/19 01/07/19 19:00 07:00 Intake Total 1185.0 ml 570.0 ml Output Total 0 ml 600 ml Balance 1185.0 ml -30.0 ml Intake Oral 460 ml IV Total 385.0 ml 110.0 ml Other 800 ml Output Urine Total 600 ml Drainage Total 0 ml # Voids 1 # Bowel Movements 3 Laboratory Tests 01/07/19 11:30: White Blood Count 5.2, Red Blood Count 2.51L, Hemoglobin 8.0L, Hematocrit 23.6L , Mean Corpuscular Volume 94, Mean Corpuscular Hemoglobin 31.9H, Mean Corpuscular Hemoglobin Concent 33.9, Red Cell Distribution Width 15.2H, Platelet Count 116L, Mean Platelet Volume 8.1, Neutrophils (%) (Auto) 68.9, Lymphocytes (%) (Auto) 17.6L, Monocytes (%) (Auto) 7.8, Eosinophils (%) (Auto) 5.1H, Basophils (%) (Auto) 0.7, Sodium Level [Pending], Potassium Level [Pending ], Chloride Level [Pending], Carbon Dioxide Level [Pending], Blood Urea Nitrogen [Pending], Creatinine [Pending], Estimat Glomerular Filtration Rate [ Pending], Glucose Level [Pending], Uric Acid [Pending], Calcium Level [Pending] , Phosphorus Level [Pending], Magnesium Level [Pending], Iron Level [Pending], Unsaturated Iron Binding [Pending], Ferritin [Pending], Total Bilirubin [Pending ], Aspartate Amino Transf (AST/SGOT) [Pending], Alanine Aminotransferase (ALT/ SGPT) [Pending], Alkaline Phosphatase [Pending], Total Protein [Pending], Albumin [Pending], Globulin [Pending], Vitamin B12 Level [Pending], Folate [ Pending], Thyroid Stimulating Hormone (TSH) [Pending], Vancomycin Level Trough [ Pending] Height (Feet): 5 Height (Inches): 0.00 Weight (Pounds): 160 General Appearance: no apparent distress Jon Craft MD Jan 07, 2019 11:50
[2019-01-07 12:00] VITALS: BP 141/92
[2019-01-07 12:15] LABS: ALANINE AMINOTRANSFERASE 31 U/L (12-78); ALBUMIN 2.2 G/DL (3.4-5.0); ALBUMIN/GLOBULIN RATIO 0.6 (1.0-2.7); ALKALINE PHOSPHATASE 285 U/L (46-116); ANION GAP 5 mmol/L (5-15); ASPARTATE AMINO TRANSFERASE 19 U/L (15-37); BILIRUBIN,TOTAL 0.8 MG/DL (0.2-1.0); BLOOD UREA NITROGEN 8 mg/dL (7-18); CARBON DIOXIDE 28 MMOL/L (21-32); CHLORIDE 111 MMOL/L (98-107); FERRITIN 152 NG/ML (8-388); PHOSPHORUS 2.8 MG/DL (2.5-4.9); POTASSIUM 3.7 MMOL/L (3.5-5.1); SODIUM 144 MMOL/L (136-145)
[2019-01-07 12:30] LABS: % IRON SATURATION 14 % (15-50); IRON 24 ug/dL (50-175); TOTAL IRON BINDING CAPACITY 171 ug/dL (250-450)
[2019-01-07] MEDS: Vancomycin 1.5gm/NS Premix IVPB SCH (14:22)
[2019-01-07 16:00] VITALS: BP 128/68
--- NOTE | 2019-01-07 16:05 | Surgery Progress Note ---
Surgery Progress Note Subjective Symptoms: improved Objective Last 24 Hour Vital Signs Date Time Temp Pulse Resp B/P (MAP) Pulse Ox O2 Delivery O2 Flow Rate FiO2 01/07/19 12:00 97.9 78 19 141/92 (108) 93 01/07/19 09:00 Room Air 01/07/19 08:00 97.3 86 18 116/74 (88) 93 01/07/19 04:00 97.9 81 18 119/73 (88) 96 01/07/19 00:00 98.9 65 18 96/62 (73) 95 01/06/19 21:00 Room Air 01/06/19 20:00 99.0 96 19 108/63 (78) 95 I&O Intake and Output 01/06/19 01/07/19 19:00 07:00 Intake Total 1185.0 ml 570.0 ml Output Total 0 ml 600 ml Balance 1185.0 ml -30.0 ml Intake Oral 460 ml IV Total 385.0 ml 110.0 ml Other 800 ml Output Urine Total 600 ml Drainage Total 0 ml # Voids 1 # Bowel Movements 3 Dressing: dry Wound: clean Cardiovascular: RSR Respiratory: clear Abdomen: soft, non-tender, present bowel sounds Extremities: no edema, no tenderness, no cyanosis Laboratory Tests Test 01/07/19 11:30 White Blood Count 5.2 K/UL (4.8-10.8) Red Blood Count 2.51 M/UL (4.70-6.10) L Hemoglobin 8.0 G/DL (14.2-18.0) L Hematocrit 23.6 % (42.0-52.0) L Mean Corpuscular Volume 94 FL (80-99) Mean Corpuscular Hemoglobin 31.9 PG (27.0-31.0) H Mean Corpuscular Hemoglobin Concent 33.9 G/DL (32.0-36.0) Red Cell Distribution Width 15.2 % (11.6-14.8) H Platelet Count 116 K/UL (150-450) L Mean Platelet Volume 8.1 FL (6.5-10.1) Neutrophils (%) (Auto) 68.9 % (45.0-75.0) Lymphocytes (%) (Auto) 17.6 % (20.0-45.0) L Monocytes (%) (Auto) 7.8 % (1.0-10.0) Eosinophils (%) (Auto) 5.1 % (0.0-3.0) H Basophils (%) (Auto) 0.7 % (0.0-2.0) Sodium Level 144 MMOL/L (136-145) Potassium Level 3.7 MMOL/L (3.5-5.1) Chloride Level 111 MMOL/L (98-107) H Carbon Dioxide Level 28 MMOL/L (21-32) Anion Gap 5 mmol/L (5-15) Blood Urea Nitrogen 8 mg/dL (7-18) Creatinine 1.0 MG/DL (0.55-1.30) Estimat Glomerular Filtration Rate mL/min (>60) Glucose Level 98 MG/DL (74-106) Uric Acid 2.9 MG/DL (2.6-7.2) Calcium Level 8.0 MG/DL (8.5-10.1) L Phosphorus Level 2.8 MG/DL (2.5-4.9) Magnesium Level 1.7 MG/DL (1.8-2.4) L Iron Level 24 ug/dL (50-175) L Total Iron Binding Capacity 171 ug/dL (250-450) L Percent Iron Saturation 14 % (15-50) L Unsaturated Iron Binding 147 ug/dL (112-346) Ferritin 152 NG/ML (8-388) Total Bilirubin 0.8 MG/DL (0.2-1.0) Aspartate Amino Transf (AST/SGOT) 19 U/L (15-37) Alanine Aminotransferase (ALT/SGPT) 31 U/L (12-78) Alkaline Phosphatase 285 U/L (46-116) H Total Protein 5.8 G/DL (6.4-8.2) L Albumin 2.2 G/DL (3.4-5.0) L Globulin 3.6 g/dL Albumin/Globulin Ratio 0.6 (1.0-2.7) L Vitamin B12 Level 258 PG/ML (193-986) Folate 17.4 NG/ML (8.6-58.9) Thyroid Stimulating Hormone (TSH) 1.340 uiU/mL (0.358-3.740) Vancomycin Level Trough 15.6 ug/mL (5.0-12.0) H Plan Problems: (1) Amputation stump infection Assessment & Plan: bilateral lower extremity below-knee amputations. On the right side the recent revision flap has dehisced and serous purulent drainage identified with viable sutures and palpable bone. On the left side the flap is intact on the medial aspect there is drainage coming from the wound bed in between the barbara. There is an opening on the lateral aspect approximately 2 cm x 2 cm with unknown depth given its location. We will currently continue with localized wound care as I discussed with the operating orthopedic surgeon about potential management. I discussed with the patient the current findings and the potential necessity for reoperation versus ray amputation. Versus potential salvage. Continue with IV antibiotics s/p debridement by plastic surgery 12/11 wound vac placed today by myself 12/12 d/c planning With follow with local wound care and evaluation We will discuss with orthopedic and medical team Thank you for allowing participate patient's care (2) Sacral decubitus ulcer Assessment & Plan: This is a 88-year-old male with multiple small full- thickness sacral decubitus ulcers. Patient states that he formed because he was laying flat for 15 days at an outside facility. Identified upon admission and initiated care plan. Periwound seems to have prior healing areas as well as acute inflamed areas with full-thickness breakdown approximately 1 cm x 1 cm on the left buttock/sacral cleft and similarly on the right as well. No active drainage. No foul order. Pt presented on admission with keloid scar with hyperpigmentation sacrum from previous pressure injury;confirmed by pt. Dry loose skin noted to R and L sacrum. No open areas noted. Pt denied tenderness when site palpated. Pt resistive to being repositioned on his sides and was educated of potential risks for already compromised skin to breakdown . Pt demonstrated ability to reposition self when cued.Demonstrated to pt on how to utilize side rails to off -lift buttocks and shift weight in bed. Skin lesions noted to R and L scalp. Pt verbalized he has skin cancer and lesions were recently removed. Hypergranular skin lesions also noted to Lateral L thigh. Apply Moisture Barrier Paste to Sacrum. Cover with Optifoam drsg. Change every 3 days and prn. Encourage and assist with repositioning at least every 2hours or as tolerated.Elevate BKA stumps on pillow. Turn every 2 hours. Patient willing and does assist with ensuring that he turns every so often Offload stump pressures with pillow Thank you for allowing me to participate in patient's care will follow with recommendations (3) Postoperative wound closure planning (4) Stump injury Assessment & Plan: s/p debridement by plastic surgery 12/11 wound vac placed today by myself 12/12 d/c planning plan for VAC upon discharge to SNF NPWT R BKA changed to today. Wound resolving(L)2.1cm x (W)5.2cm x (D)0.3cm. Skelp granulation at base of wound .Edges flat and adherent to base of wound. Periwound is intact.No odor noted. 20ml serous exudate noted in canister. Wound cleansed with Saline. Cavilon Skin Barrier applied periwound then covered with transparent drape. Granulofoam cut to conform to wound. Additional granulofoam cut to accommodate Sensor trac pad. Covered with transparent drsg. NPWT resumed @125mm/Hg to continuous suction. Pt tolerated procedure well. Wounds L BKA wound medial aspect of L BKA hypergranular, oozing small amt of non -odorous serous exudate. Periwound without erythema or induration. Wound urvashi L BKA hypergranular ,oozing small amt of non-odorous serous exudate . Periwound without erythema or induration. Application of Silver Nitrate sticks applied to both woundsfor hypergranulation. Both wounds covered with Gauze then ABD pad and wrapped with Kerlix. Pt denied pain L BKA. Findings: X-ray better demonstrates signs of recent surgery with surgical clips barbara at the site of a below the knee amputation. The cortical margin at the tibial stump appears intact both on x-ray and MRI. MRI examination does demonstrate bone marrow edema in the anterior inferior aspect of the tibial stump. Adjacent soft tissue swelling is present. Given recent surgery the soft tissue changes are expected. The bone marrow edema could be reactive marrow edema or due to osteomyelitis. Suspect the former. Similar signal alteration noted within the left tibial stump (left lower extremity partially imaged on this study on the transcoronal sequences). thank you (5) Infection of amputation stump, right lower extremity Assessment & Plan: much improved d/c planning cont vac on d/c Additional Comments will talk with plastics about removing vac for d/c and going to dressings Jaiden Teresa Jan 07, 2019 16:05
[2019-01-07 20:00] VITALS: BP 117/67
[2019-01-07] MEDS: Dyna-Hex 2% Top Sol 2oz TOPIC SCH (20:52)
[2019-01-07] MEDS: Tamsulosin 0.4mg cap ORAL SCH (20:52)
[2019-01-08] VITALS: BP 142/75
[2019-01-08 04:00] VITALS: BP 140/80
--- NOTE | 2019-01-08 06:16 | Hematology/Onc Progress Note ---
Assessment/Plan Assessment/Plan IMPRESSION/RECS: # Pacnytopenia -- initially presented with Anemia due to underlying iron deficiency, r/o gi bleed - also with multifactorial component, also may be related to abx --> anemia panel reviewed and noted with Iron def --> has been started on iv iron x 5 day course --> hgb transfuse if hgb lower than 7 --> hgb trend 10.6-->10.1-->9.9-->9.3-->10.7-->8.1-->8.2-->8 --> HOLDING OFF LABS q3 days --> occult ++, dw pcp, outpatient w/u with gi --> plt trend 117-->148k-->46-->48-->48->52-->87-->116 --> wbc trend 5-->4-3.5 --> hiv negative, hepatitis panel negative --> imaging abd reviewed --> meds reviewed, consider abx as per id care # History of melanoma. --> currently in remission # Amputation stump infection, BKA +++, more on right side --> on cefepime/vanc--> leva/vanc x 34 d--> zosyn, vanc, levaquin--> vanc/levaqu --> as per id recs --> surg, pod recs --> s/p i&d 01/02 # Wound dehiscence of right amputation stump. --> eval with surg, pod # Hypothyroidism. --> started on synthroid # Dvt ppx scds Time of note does not necessarily correspond to when patient seen Greatly appreciate consultation. Subjective Constitutional: Denies: no symptoms, chills, fever, malaise, weakness, other HEENT: Denies: no symptoms, eye pain, blurred vision, tearing, double vision, ear pain, ear discharge, nose pain, nose congestion, throat pain, throat swelling, mouth pain, mouth swelling, other Cardiovascular: Denies: no symptoms, chest pain, edema, irregular heart rate, lightheadedness, palpitations, syncope, other Respiratory: Denies: no symptoms, cough, shortness of breath, SOB with excertion, SOB at rest, sputum, wheezing, other Gastrointestinal/Abdominal: Denies: no symptoms, abdomen distended, abdominal pain, black stools, tarry stools, blood in stool, constipated, diarrhea, difficulty swallowing, nausea, poor appetite, poor fluid intake, rectal bleeding , vomiting, other Neurologic/Psychiatric: Denies: no symptoms, anxiety, depressed, emotional problems, headache, numbness, paresthesia, pre-existing deficit, seizure, tingling, tremors, weakness, other Endocrine: Denies: no symptoms, excessive sweating, flushing, intolerance to cold, intolerance to heat, increased hunger, increased thirst, increased urine, unexplained weight gain, unexplained weight loss, other Allergies: Coded Allergies: No Known Allergies (Unverified , 01/04/17) Subjective 12/09: no events, remains on abx, has been started on iv iron, hgb 9.9 12/11: s/p right leg wound debridement, cultures pending 12/12: vs stable, on abx, cultures noted, bleeding noted on dressing 12/13: no bleeding or chills, labs reviewed, no major night sweats 12/14: no events, no bleeding, wants to take off wound vac and take a shower, no f 12/15: no f/c, vs stable, no bleeding, no acute events, meds reviewed 12/17: leg pain, 06/11, refusing labs currently, no f/c, no bleeding 12/18: no changes, no bleeding, wound better 12/19: refusing labs, pain less today, laying flat 12/20: complaining with rn has had too many blood draws 12/21: no bleeding, chills or night sweats, no major changes 12/22: complaining of some pain, does not want any further lab draws 12/23: no bleeding, no night sweats, no major changes, right stump pain 12/25; refusing care, seen by id, no major changes, no bleeding 12/26: piccline in place, no events, doesn't want am lab draws 12/27: awake and alert, no acute events, afebrile 12/28: no events to report o/n, is on levaquin and zyvox x 20 days, no bleeding 12/29: no acute events, c/o pain, h/h stable, repeat cbc tomorrow 12/30: berating staff this am, does not want to draw blood, even though hgb 8.1 01/01: no bleeding, no events hgb was 8.2, 2 days ago, no major changes 01/02: s/p i&d, urine cx and hep panel both negative, on abx 01/03: no bleeding noted, no night sweats, labs reviewed, wound vac++ 01/04: no bleeding, with picc, labs noted, no major changes 01/05: no bleeding, sleeping comfortably, have ordered us abd to r/o cirrhosis 01/08: has been refusing his labs this am, does not want any further lab draws Objective Objective Current Medications Medications (Trade) Dose Ordered Sig/Trever Route PRN Reason Start Time Stop Time Status Last Admin Dose Admin Chlorhexidine Gluconate (Sammie-Hex 2%) 1 applic DAILY@1999 TOPIC 01/06/19 20:00 02/05/19 19:59 01/07/19 20:52 Hydromorphone HCl (Dilaudid) 2 mg Q3H PRN IVP severe pain 01/03/19 08:45 01/10/19 08:44 01/08/19 05:50 Levofloxacin (Levaquin) 250 mg DAILY ORAL 12/23/18 09:00 01/16/19 23:59 01/07/19 08:33 Naloxone HCl (Narcan) 0.2 mg Q2M PRN IVP RESPRITORY DEPRESSION 12/29/18 08:30 01/28/19 08:29 Potassium Chloride (K-Dur) 40 meq TWICE A DAY ORAL 01/06/19 10:00 02/05/19 09:59 01/07/19 17:29 Tamsulosin HCl (Flomax) 0.4 mg BEDTIME ORAL 12/30/18 21:00 01/29/19 20:59 01/07/19 20:52 Temazepam (Restoril) 15 mg HSPRN PRN ORAL Insomnia 01/04/19 07:15 01/11/19 07:14 01/08/19 01:55 Temazepam (Restoril) 30 mg HSPRN PRN ORAL Insomnia 01/04/19 07:45 01/11/19 07:14 01/05/19 21:04 Vancomycin HCl (Vanco rx to dose) 1 ea DAILY PRN MISC Per rx protocol 01/07/19 11:00 02/06/19 10:59 Vancomycin/Sodium Chloride 275 ml @ 137.5 mls/ hr Q24H IVPB 01/03/19 14:00 01/08/19 13:59 01/07/19 14:22 Last 24 Hour Vital Signs Date Time Temp Pulse Resp B/P (MAP) Pulse Ox O2 Delivery O2 Flow Rate FiO2 01/08/19 04:00 97.7 80 19 140/80 (100) 97 01/08/19 00:00 97.8 76 19 142/75 (97) 96 01/07/19 21:00 Room Air 01/07/19 20:00 98.1 93 19 117/67 (84) 95 01/07/19 16:00 98.6 84 17 128/68 (88) 98 01/07/19 12:00 97.9 78 19 141/92 (108) 93 01/07/19 09:00 Room Air 01/07/19 08:00 97.3 86 18 116/74 (88) 93 01/07/19 04:00 97.9 81 18 119/73 (88) 96 01/07/19 00:00 98.9 65 18 96/62 (73) 95 01/06/19 21:00 Room Air 01/06/19 20:00 99.0 96 19 108/63 (78) 95 01/06/19 16:00 98.5 91 20 141/80 (100) 98 01/06/19 12:00 97.9 85 18 121/66 (84) 95 01/06/19 09:00 Room Air 01/06/19 08:00 97.7 83 19 133/64 (87) 93 Intake and Output 01/07/19 01/08/19 19:00 07:00 Intake Total 385.0 ml 1360 ml Output Total 0 ml 615 ml Balance 385.0 ml 745 ml Intake Oral 460 ml IV Total 385.0 ml 100 ml Other 800 ml Output Urine Total 600 ml Drainage Total 0 ml 0 ml Estimated Blood Loss 15 ml # Voids 1 # Bowel Movements 2 Labs Test 01/05/19 12:50 01/06/19 06:55 01/07/19 11:30 Vancomycin Level Trough 12.8 ug/mL (5.0-12.0) 15.6 ug/mL (5.0-12.0) White Blood Count 4.3 K/UL (4.8-10.8) 5.2 K/UL (4.8-10.8) Red Blood Count 2.36 M/UL (4.70-6.10) 2.51 M/UL (4.70-6.10) Hemoglobin 7.5 G/DL (14.2-18.0) 8.0 G/DL (14.2-18.0) Hematocrit 22.0 % (42.0-52.0) 23.6 % (42.0-52.0) Mean Corpuscular Volume 93 FL (80-99) 94 FL (80-99) Mean Corpuscular Hemoglobin 31.8 PG (27.0-31.0) 31.9 PG (27.0-31.0) Mean Corpuscular Hemoglobin Concent 34.2 G/DL (32.0-36.0) 33.9 G/DL (32.0-36.0) Red Cell Distribution Width 14.4 % (11.6-14.8) 15.2 % (11.6-14.8) Platelet Count 87 K/UL (150-450) 116 K/UL (150-450) Mean Platelet Volume 8.6 FL (6.5-10.1) 8.1 FL (6.5-10.1) Neutrophils (%) (Auto) % (45.0-75.0) 68.9 % (45.0-75.0) Lymphocytes (%) (Auto) % (20.0-45.0) 17.6 % (20.0-45.0) Monocytes (%) (Auto) % (1.0-10.0) 7.8 % (1.0-10.0) Eosinophils (%) (Auto) % (0.0-3.0) 5.1 % (0.0-3.0) Basophils (%) (Auto) % (0.0-2.0) 0.7 % (0.0-2.0) Differential Total Cells Counted 100 Neutrophils % (Manual) 67 % (45-75) Lymphocytes % (Manual) 21 % (20-45) Monocytes % (Manual) 9 % (1-10) Eosinophils % (Manual) 1 % (0-3) Basophils % (Manual) 0 % (0-2) Myelocytes % 2 % (0-0) Band Neutrophils 0 % (0-8) Platelet Estimate Decreased Platelet Morphology Normal Red Blood Cell Morphology Normal Sodium Level 144 MMOL/L (136-145) 144 MMOL/L (136-145) Potassium Level 3.1 MMOL/L (3.5-5.1) 3.7 MMOL/L (3.5-5.1) Chloride Level 112 MMOL/L (98-107) 111 MMOL/L (98-107) Carbon Dioxide Level 27 MMOL/L (21-32) 28 MMOL/L (21-32) Anion Gap 5 mmol/L (5-15) 5 mmol/L (5-15) Blood Urea Nitrogen 7 mg/dL (7-18) 8 mg/dL (7-18) Creatinine 1.0 MG/DL (0.55-1.30) 1.0 MG/DL (0.55-1.30) Estimat Glomerular Filtration Rate mL/min (>60) mL/min (>60) Glucose Level 87 MG/DL (74-106) 98 MG/DL (74-106) Calcium Level 7.8 MG/DL (8.5-10.1) 8.0 MG/DL (8.5-10.1) Uric Acid 2.9 MG/DL (2.6-7.2) Phosphorus Level 2.8 MG/DL (2.5-4.9) Magnesium Level 1.7 MG/DL (1.8-2.4) Iron Level 24 ug/dL (50-175) Total Iron Binding Capacity 171 ug/dL (250-450) Percent Iron Saturation 14 % (15-50) Unsaturated Iron Binding 147 ug/dL (112-346) Ferritin 152 NG/ML (8-388) Total Bilirubin 0.8 MG/DL (0.2-1.0) Aspartate Amino Transf (AST/SGOT) 19 U/L (15-37) Alanine Aminotransferase (ALT/SGPT) 31 U/L (12-78) Alkaline Phosphatase 285 U/L (46-116) Total Protein 5.8 G/DL (6.4-8.2) Albumin 2.2 G/DL (3.4-5.0) Globulin 3.6 g/dL Albumin/Globulin Ratio 0.6 (1.0-2.7) Vitamin B12 Level 258 PG/ML (193-986) Folate 17.4 NG/ML (8.6-58.9) Thyroid Stimulating Hormone (TSH) 1.340 uiU/mL (0.358-3.740) Height (Feet): 5 Height (Inches): 0.00 Weight (Pounds): 160 Objective Vitals: reviewed Gen: Nad Pulm: Ctab CV: rrr, no mgr Abd: soft, nt, nd Ext: b/l bka noted, dressings+, wound vac Oseas Tong MD Jan 08, 2019 06:16
[2019-01-08 08:00] VITALS: BP 137/76
--- NOTE | 2019-01-08 08:24 | General Progress Note ---
Assessment/Plan Assessment/Plan: (1) B/L BKA (2) B/L stump pain (3) s/p stump revision (4) Phantom limb pain The patient will be continued on Dilaudid. The patient was discussed with Dr. Velasquez and Dr. Velasquez concurred. Subjective Date patient seen: Jan 08, 2019 Time patient seen: 08:00 - am Allergies: Coded Allergies: No Known Allergies (Unverified , 01/04/17) Subjective REVIEW OF SYSTEMS: Denies rash, fever, chills, sweating, dizziness, drowsiness, or change in weight. No shortness of breath or chest pain. No nausea, vomiting, or blood in the stool or urine. He is complaining of bilateral lower extremity. SUBJECTIVE: Pt continues to be in bed and showing no signs of pain or distress. His pain has been severe however has been tolerated on the Dilaudid using 7 doses in the last 24hrs. He has no new complaints at this time. Objective Last 24 Hour Vital Signs Date Time Temp Pulse Resp B/P (MAP) Pulse Ox O2 Delivery O2 Flow Rate FiO2 01/08/19 04:00 97.7 80 19 140/80 (100) 97 01/08/19 00:00 97.8 76 19 142/75 (97) 96 01/07/19 21:00 Room Air 01/07/19 20:00 98.1 93 19 117/67 (84) 95 01/07/19 16:00 98.6 84 17 128/68 (88) 98 01/07/19 12:00 97.9 78 19 141/92 (108) 93 01/07/19 09:00 Room Air Intake and Output 01/07/19 01/08/19 19:00 07:00 Intake Total 385.0 ml 1360 ml Output Total 0 ml 615 ml Balance 385.0 ml 745 ml Intake Oral 460 ml IV Total 385.0 ml 100 ml Other 800 ml Output Urine Total 600 ml Drainage Total 0 ml 0 ml Estimated Blood Loss 15 ml # Voids 1 # Bowel Movements 2 Laboratory Tests 01/07/19 11:30: White Blood Count 5.2, Red Blood Count 2.51L, Hemoglobin 8.0L, Hematocrit 23.6L , Mean Corpuscular Volume 94, Mean Corpuscular Hemoglobin 31.9H, Mean Corpuscular Hemoglobin Concent 33.9, Red Cell Distribution Width 15.2H, Platelet Count 116L, Mean Platelet Volume 8.1, Neutrophils (%) (Auto) 68.9, Lymphocytes (%) (Auto) 17.6L, Monocytes (%) (Auto) 7.8, Eosinophils (%) (Auto) 5.1H, Basophils (%) (Auto) 0.7, Sodium Level 144, Potassium Level 3.7, Chloride Level 111H, Carbon Dioxide Level 28, Anion Gap 5, Blood Urea Nitrogen 8, Creatinine 1.0, Estimat Glomerular Filtration Rate , Glucose Level 98, Uric Acid 2.9, Calcium Level 8.0L, Phosphorus Level 2.8, Magnesium Level 1.7L, Iron Level 24L, Total Iron Binding Capacity 171L, Percent Iron Saturation 14L, Unsaturated Iron Binding 147, Ferritin 152, Total Bilirubin 0.8, Aspartate Amino Transf (AST/SGOT) 19, Alanine Aminotransferase (ALT/SGPT) 31, Alkaline Phosphatase 285H, Total Protein 5.8L, Albumin 2.2L, Globulin 3.6, Albumin/ Globulin Ratio 0.6L, Vitamin B12 Level 258, Folate 17.4, Thyroid Stimulating Hormone (TSH) 1.340, Vancomycin Level Trough 15.6H Height (Feet): 5 Height (Inches): 0.00 Weight (Pounds): 160 Objective GENERAL: Alert, awake, and oriented x3. LUNGS: Clear bilaterally. HEART: S1 S2 Regular. ABDOMEN: Soft non-tender. EXTREMITIES: Bilateral [id number]-[id number] amputation noted. wound vac applied to right LE. NEURO: No changes. Hiram Griffin Jan 08, 2019 08:24
--- NOTE | 2019-01-08 09:45 | Surgery Progress Note ---
Surgery Progress Note Subjective Additional Comments no acute events patient does not want labs he does not want vac removed until he talks with others no n/v/f/c. Objective Last 24 Hour Vital Signs Date Time Temp Pulse Resp B/P (MAP) Pulse Ox O2 Delivery O2 Flow Rate FiO2 01/08/19 09:00 Room Air 01/08/19 08:00 98.1 82 18 137/76 (96) 94 01/08/19 04:00 97.7 80 19 140/80 (100) 97 01/08/19 00:00 97.8 76 19 142/75 (97) 96 01/07/19 21:00 Room Air 01/07/19 20:00 98.1 93 19 117/67 (84) 95 01/07/19 16:00 98.6 84 17 128/68 (88) 98 01/07/19 12:00 97.9 78 19 141/92 (108) 93 I&O Intake and Output 01/07/19 01/08/19 19:00 07:00 Intake Total 385.0 ml 1360 ml Output Total 0 ml 615 ml Balance 385.0 ml 745 ml Intake Oral 460 ml IV Total 385.0 ml 100 ml Other 800 ml Output Urine Total 600 ml Drainage Total 0 ml 0 ml Estimated Blood Loss 15 ml # Voids 1 # Bowel Movements 2 Dressing: dry Wound: clean Drains: wound vac Cardiovascular: RSR Respiratory: clear Abdomen: soft, flat, non-tender, present bowel sounds Extremities: no edema, no tenderness, no cyanosis Laboratory Tests Test 01/07/19 11:30 White Blood Count 5.2 K/UL (4.8-10.8) Red Blood Count 2.51 M/UL (4.70-6.10) L Hemoglobin 8.0 G/DL (14.2-18.0) L Hematocrit 23.6 % (42.0-52.0) L Mean Corpuscular Volume 94 FL (80-99) Mean Corpuscular Hemoglobin 31.9 PG (27.0-31.0) H Mean Corpuscular Hemoglobin Concent 33.9 G/DL (32.0-36.0) Red Cell Distribution Width 15.2 % (11.6-14.8) H Platelet Count 116 K/UL (150-450) L Mean Platelet Volume 8.1 FL (6.5-10.1) Neutrophils (%) (Auto) 68.9 % (45.0-75.0) Lymphocytes (%) (Auto) 17.6 % (20.0-45.0) L Monocytes (%) (Auto) 7.8 % (1.0-10.0) Eosinophils (%) (Auto) 5.1 % (0.0-3.0) H Basophils (%) (Auto) 0.7 % (0.0-2.0) Sodium Level 144 MMOL/L (136-145) Potassium Level 3.7 MMOL/L (3.5-5.1) Chloride Level 111 MMOL/L (98-107) H Carbon Dioxide Level 28 MMOL/L (21-32) Anion Gap 5 mmol/L (5-15) Blood Urea Nitrogen 8 mg/dL (7-18) Creatinine 1.0 MG/DL (0.55-1.30) Estimat Glomerular Filtration Rate mL/min (>60) Glucose Level 98 MG/DL (74-106) Uric Acid 2.9 MG/DL (2.6-7.2) Calcium Level 8.0 MG/DL (8.5-10.1) L Phosphorus Level 2.8 MG/DL (2.5-4.9) Magnesium Level 1.7 MG/DL (1.8-2.4) L Iron Level 24 ug/dL (50-175) L Total Iron Binding Capacity 171 ug/dL (250-450) L Percent Iron Saturation 14 % (15-50) L Unsaturated Iron Binding 147 ug/dL (112-346) Ferritin 152 NG/ML (8-388) Total Bilirubin 0.8 MG/DL (0.2-1.0) Aspartate Amino Transf (AST/SGOT) 19 U/L (15-37) Alanine Aminotransferase (ALT/SGPT) 31 U/L (12-78) Alkaline Phosphatase 285 U/L (46-116) H Total Protein 5.8 G/DL (6.4-8.2) L Albumin 2.2 G/DL (3.4-5.0) L Globulin 3.6 g/dL Albumin/Globulin Ratio 0.6 (1.0-2.7) L Vitamin B12 Level 258 PG/ML (193-986) Folate 17.4 NG/ML (8.6-58.9) Thyroid Stimulating Hormone (TSH) 1.340 uiU/mL (0.358-3.740) Vancomycin Level Trough 15.6 ug/mL (5.0-12.0) H Plan Problems: (1) Amputation stump infection Assessment & Plan: bilateral lower extremity below-knee amputations. On the right side the recent revision flap has dehisced and serous purulent drainage identified with viable sutures and palpable bone. On the left side the flap is intact on the medial aspect there is drainage coming from the wound bed in between the barbara. There is an opening on the lateral aspect approximately 2 cm x 2 cm with unknown depth given its location. We will currently continue with localized wound care as I discussed with the operating orthopedic surgeon about potential management. I discussed with the patient the current findings and the potential necessity for reoperation versus ray amputation. Versus potential salvage. Continue with IV antibiotics s/p debridement by plastic surgery 12/11 wound vac placed today by myself 12/12 d/c planning With follow with local wound care and evaluation We will discuss with orthopedic and medical team Thank you for allowing participate patient's care (2) Sacral decubitus ulcer Assessment & Plan: This is a 88-year-old male with multiple small full- thickness sacral decubitus ulcers. Patient states that he formed because he was laying flat for 15 days at an outside facility. Identified upon admission and initiated care plan. Periwound seems to have prior healing areas as well as acute inflamed areas with full-thickness breakdown approximately 1 cm x 1 cm on the left buttock/sacral cleft and similarly on the right as well. No active drainage. No foul order. Pt presented on admission with keloid scar with hyperpigmentation sacrum from previous pressure injury;confirmed by pt. Dry loose skin noted to R and L sacrum. No open areas noted. Pt denied tenderness when site palpated. Pt resistive to being repositioned on his sides and was educated of potential risks for already compromised skin to breakdown . Pt demonstrated ability to reposition self when cued.Demonstrated to pt on how to utilize side rails to off -lift buttocks and shift weight in bed. Skin lesions noted to R and L scalp. Pt verbalized he has skin cancer and lesions were recently removed. Hypergranular skin lesions also noted to Lateral L thigh. Apply Moisture Barrier Paste to Sacrum. Cover with Optifoam drsg. Change every 3 days and prn. Encourage and assist with repositioning at least every 2hours or as tolerated.Elevate BKA stumps on pillow. Turn every 2 hours. Patient willing and does assist with ensuring that he turns every so often Offload stump pressures with pillow Thank you for allowing me to participate in patient's care will follow with recommendations (3) Postoperative wound closure planning (4) Stump injury Assessment & Plan: s/p debridement by plastic surgery 12/11 wound vac placed today by myself 12/12 d/c planning plan for VAC upon discharge to SNF NPWT R BKA changed to today. Wound resolving(L)2.1cm x (W)5.2cm x (D)0.3cm. Garza-Salinas Ii granulation at base of wound .Edges flat and adherent to base of wound. Periwound is intact.No odor noted. 20ml serous exudate noted in canister. Wound cleansed with Saline. Cavilon Skin Barrier applied periwound then covered with transparent drape. Granulofoam cut to conform to wound. Additional granulofoam cut to accommodate Sensor trac pad. Covered with transparent drsg. NPWT resumed @125mm/Hg to continuous suction. Pt tolerated procedure well. Wounds L BKA wound medial aspect of L BKA hypergranular, oozing small amt of non -odorous serous exudate. Periwound without erythema or induration. Wound urvashi L BKA hypergranular ,oozing small amt of non-odorous serous exudate . Periwound without erythema or induration. Application of Silver Nitrate sticks applied to both woundsfor hypergranulation. Both wounds covered with Gauze then ABD pad and wrapped with Kerlix. Pt denied pain L BKA. Findings: X-ray better demonstrates signs of recent surgery with surgical clips barbara at the site of a below the knee amputation. The cortical margin at the tibial stump appears intact both on x-ray and MRI. MRI examination does demonstrate bone marrow edema in the anterior inferior aspect of the tibial stump. Adjacent soft tissue swelling is present. Given recent surgery the soft tissue changes are expected. The bone marrow edema could be reactive marrow edema or due to osteomyelitis. Suspect the former. Similar signal alteration noted within the left tibial stump (left lower extremity partially imaged on this study on the transcoronal sequences). thank you (5) Infection of amputation stump, right lower extremity Assessment & Plan: much improved d/c planning cont vac on d/c Jaiden Teresa Jan 08, 2019 09:45
--- NOTE | 2019-01-08 10:03 | Nephrology Progress Note ---
Assessment/Plan Problem List: (1) Hypokalemia (2) Anemia Assessment Low K LowHgb Plan agreed to have his blood drawn- K now improved will see as needed Subjective ROS Limited/Unobtainable: No Constitutional: Reports: malaise Objective Objective Last 24 Hour Vital Signs Date Time Temp Pulse Resp B/P (MAP) Pulse Ox O2 Delivery O2 Flow Rate FiO2 01/08/19 09:00 Room Air 01/08/19 08:00 98.1 82 18 137/76 (96) 94 01/08/19 04:00 97.7 80 19 140/80 (100) 97 01/08/19 00:00 97.8 76 19 142/75 (97) 96 01/07/19 21:00 Room Air 01/07/19 20:00 98.1 93 19 117/67 (84) 95 01/07/19 16:00 98.6 84 17 128/68 (88) 98 01/07/19 12:00 97.9 78 19 141/92 (108) 93 Intake and Output 01/07/19 01/08/19 19:00 07:00 Intake Total 385.0 ml 1360 ml Output Total 0 ml 615 ml Balance 385.0 ml 745 ml Intake Oral 460 ml IV Total 385.0 ml 100 ml Other 800 ml Output Urine Total 600 ml Drainage Total 0 ml 0 ml Estimated Blood Loss 15 ml # Voids 1 # Bowel Movements 2 Laboratory Tests 01/07/19 11:30: White Blood Count 5.2, Red Blood Count 2.51L, Hemoglobin 8.0L, Hematocrit 23.6L , Mean Corpuscular Volume 94, Mean Corpuscular Hemoglobin 31.9H, Mean Corpuscular Hemoglobin Concent 33.9, Red Cell Distribution Width 15.2H, Platelet Count 116L, Mean Platelet Volume 8.1, Neutrophils (%) (Auto) 68.9, Lymphocytes (%) (Auto) 17.6L, Monocytes (%) (Auto) 7.8, Eosinophils (%) (Auto) 5.1H, Basophils (%) (Auto) 0.7, Sodium Level 144, Potassium Level 3.7, Chloride Level 111H, Carbon Dioxide Level 28, Anion Gap 5, Blood Urea Nitrogen 8, Creatinine 1.0, Estimat Glomerular Filtration Rate , Glucose Level 98, Uric Acid 2.9, Calcium Level 8.0L, Phosphorus Level 2.8, Magnesium Level 1.7L, Iron Level 24L, Total Iron Binding Capacity 171L, Percent Iron Saturation 14L, Unsaturated Iron Binding 147, Ferritin 152, Total Bilirubin 0.8, Aspartate Amino Transf (AST/SGOT) 19, Alanine Aminotransferase (ALT/SGPT) 31, Alkaline Phosphatase 285H, Total Protein 5.8L, Albumin 2.2L, Globulin 3.6, Albumin/ Globulin Ratio 0.6L, Vitamin B12 Level 258, Folate 17.4, Thyroid Stimulating Hormone (TSH) 1.340, Vancomycin Level Trough 15.6H Height (Feet): 5 Height (Inches): 0.00 Weight (Pounds): 160 General Appearance: no apparent distress Neurologic: normal mood/affect Objective no change Jon Craft MD Jan 08, 2019 10:03
--- NOTE | 2019-01-08 10:20 | Infectious Diseases Prog Note ---
Assessment/Plan Assessment/Plan IMPRESSION: 1. Amputation stump infection, more in the right side. - cultures; MRSA, Enterococcus ( VRE & Proteus - bone biopsy, like acute osteomyelitis 2 wound dehiscence of right amputation stump. 3. Anemia. 4. Hypothyroidism. 5. History of melanoma. 6. thrombocytopenia 10.Dysuria, ? BPH 11. 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 We will continue with Levaquin & IV Vancomycin X 9 days Subjective ROS Limited/Unobtainable: No Constitutional: Denies: fever Genitourinary: Reports: dysuria Musculoskeletal: Reports: pain Allergies: Coded Allergies: No Known Allergies (Unverified , 01/04/17) Objective Vital Signs Last 24 Hour Vital Signs Date Time Temp Pulse Resp B/P (MAP) Pulse Ox O2 Delivery O2 Flow Rate FiO2 01/08/19 09:00 Room Air 01/08/19 08:00 98.1 82 18 137/76 (96) 94 01/08/19 04:00 97.7 80 19 140/80 (100) 97 01/08/19 00:00 97.8 76 19 142/75 (97) 96 01/07/19 21:00 Room Air 01/07/19 20:00 98.1 93 19 117/67 (84) 95 01/07/19 16:00 98.6 84 17 128/68 (88) 98 01/07/19 12:00 97.9 78 19 141/92 (108) 93 Height (Feet): 5 Height (Inches): 0.00 Weight (Pounds): 160 General Appearance: no acute distress HEENT: mucous membranes moist Respiratory/Chest: lungs clear Cardiovascular: normal rate, other - left arm PICC line Abdomen: soft, non tender Extremities: other - edema of hands Neurologic/Psychiatric: alert, oriented x 3, responsive Laboratory Tests Test 01/07/19 11:30 White Blood Count 5.2 K/UL (4.8-10.8) Red Blood Count 2.51 M/UL (4.70-6.10) L Hemoglobin 8.0 G/DL (14.2-18.0) L Hematocrit 23.6 % (42.0-52.0) L Mean Corpuscular Volume 94 FL (80-99) Mean Corpuscular Hemoglobin 31.9 PG (27.0-31.0) H Mean Corpuscular Hemoglobin Concent 33.9 G/DL (32.0-36.0) Red Cell Distribution Width 15.2 % (11.6-14.8) H Platelet Count 116 K/UL (150-450) L Mean Platelet Volume 8.1 FL (6.5-10.1) Neutrophils (%) (Auto) 68.9 % (45.0-75.0) Lymphocytes (%) (Auto) 17.6 % (20.0-45.0) L Monocytes (%) (Auto) 7.8 % (1.0-10.0) Eosinophils (%) (Auto) 5.1 % (0.0-3.0) H Basophils (%) (Auto) 0.7 % (0.0-2.0) Sodium Level 144 MMOL/L (136-145) Potassium Level 3.7 MMOL/L (3.5-5.1) Chloride Level 111 MMOL/L (98-107) H Carbon Dioxide Level 28 MMOL/L (21-32) Anion Gap 5 mmol/L (5-15) Blood Urea Nitrogen 8 mg/dL (7-18) Creatinine 1.0 MG/DL (0.55-1.30) Estimat Glomerular Filtration Rate mL/min (>60) Glucose Level 98 MG/DL (74-106) Uric Acid 2.9 MG/DL (2.6-7.2) Calcium Level 8.0 MG/DL (8.5-10.1) L Phosphorus Level 2.8 MG/DL (2.5-4.9) Magnesium Level 1.7 MG/DL (1.8-2.4) L Iron Level 24 ug/dL (50-175) L Total Iron Binding Capacity 171 ug/dL (250-450) L Percent Iron Saturation 14 % (15-50) L Unsaturated Iron Binding 147 ug/dL (112-346) Ferritin 152 NG/ML (8-388) Total Bilirubin 0.8 MG/DL (0.2-1.0) Aspartate Amino Transf (AST/SGOT) 19 U/L (15-37) Alanine Aminotransferase (ALT/SGPT) 31 U/L (12-78) Alkaline Phosphatase 285 U/L (46-116) H Total Protein 5.8 G/DL (6.4-8.2) L Albumin 2.2 G/DL (3.4-5.0) L Globulin 3.6 g/dL Albumin/Globulin Ratio 0.6 (1.0-2.7) L Vitamin B12 Level 258 PG/ML (193-986) Folate 17.4 NG/ML (8.6-58.9) Thyroid Stimulating Hormone (TSH) 1.340 uiU/mL (0.358-3.740) Vancomycin Level Trough 15.6 ug/mL (5.0-12.0) H Current Medications Medications (Trade) Dose Ordered Sig/Trever Route PRN Reason Start Time Stop Time Status Last Admin Dose Admin Chlorhexidine Gluconate (Sammie-Hex 2%) 1 applic DAILY@1999 TOPIC 01/06/19 20:00 02/05/19 19:59 01/07/19 20:52 Hydromorphone HCl (Dilaudid) 2 mg Q3H PRN IVP severe pain 01/08/19 08:45 01/15/19 08:44 01/08/19 08:47 Levofloxacin (Levaquin) 250 mg DAILY ORAL 12/23/18 09:00 01/16/19 23:59 01/08/19 08:46 Naloxone HCl (Narcan) 0.2 mg Q2M PRN IVP RESPRITORY DEPRESSION 12/29/18 08:30 01/28/19 08:29 Potassium Chloride (K-Dur) 40 meq TWICE A DAY ORAL 01/06/19 10:00 02/05/19 09:59 01/08/19 08:53 Tamsulosin HCl (Flomax) 0.4 mg BEDTIME ORAL 12/30/18 21:00 01/29/19 20:59 01/07/19 20:52 Temazepam (Restoril) 15 mg HSPRN PRN ORAL Insomnia 01/04/19 07:15 01/11/19 07:14 01/08/19 01:55 Temazepam (Restoril) 30 mg HSPRN PRN ORAL Insomnia 01/04/19 07:45 01/11/19 07:14 01/05/19 21:04 Vancomycin HCl (Vanco rx to dose) 1 ea DAILY PRN MISC Per rx protocol 01/07/19 11:00 02/06/19 10:59 Vancomycin/Sodium Chloride 275 ml @ 137.5 mls/ hr Q24H IVPB 01/03/19 14:00 01/08/19 13:59 01/07/19 14:22 Partha Obrien MD Jan 08, 2019 10:20
--- NOTE | 2019-01-08 10:31 | Diagnostic Imaging Report ---
APPROVED REPORT CPT Code: 24419 Present Symptoms Right Left Comments: BILATERAL ARMS PAIN. BILATERAL UPPER EXTREMITY: Imaging reveals patency of the internal jugular, subclavian, axillary and brachial veins. The cephalic and basilic veins are also patent. Doppler indicates normal spontaneous flow within these venous segments, bilaterally.However, edema noted in bilateral arms.
[2019-01-08 12:00] VITALS: BP 141/74
--- NOTE | 2019-01-08 13:50 | Plastic Surgery Progress Note ---
Plastic Surgery-Progress Note Subjective Procedure Performed Excisional debridement of right bka stump wound, biopsy of tibia, bone culture. Additional Comments Patient with right bka wound s/p surgical debridement and now with the wound vac. Left stump with small wound on lateral aspect. Objective Last 24 Hour Vital Signs Date Time Temp Pulse Resp B/P (MAP) Pulse Ox O2 Delivery O2 Flow Rate FiO2 01/08/19 12:00 98.2 89 18 141/74 (96) 95 01/08/19 09:00 Room Air 01/08/19 08:00 98.1 82 18 137/76 (96) 94 01/08/19 04:00 97.7 80 19 140/80 (100) 97 01/08/19 00:00 97.8 76 19 142/75 (97) 96 01/07/19 21:00 Room Air 01/07/19 20:00 98.1 93 19 117/67 (84) 95 01/07/19 16:00 98.6 84 17 128/68 (88) 98 I&O Intake and Output 01/07/19 01/08/19 19:00 07:00 Intake Total 385.0 ml 1360 ml Output Total 0 ml 615 ml Balance 385.0 ml 745 ml Intake Oral 460 ml IV Total 385.0 ml 100 ml Other 800 ml Output Urine Total 600 ml Drainage Total 0 ml 0 ml Estimated Blood Loss 15 ml # Voids 1 # Bowel Movements 2 Skin Exam: other - Right bka wound with fibrotic debris at the base. No bone exposed. Less deep. Left bka ulcer with clean granular base. Assessment Post-op Diagnosis same Plan Additional Comments Will d/c the wound vac. Start collagen dressing to the right wound with every other day changes. padding to left side. Ok to d/c to snf from my standpoint. Needs to be non weight bearing on both stumps until fully healed. Andrew Roldan MD Jan 08, 2019 13:50
[2019-01-08] MEDS: HYDROmorphone 4mg tab ORAL PRN ×2 (14:53→20:10)
[2019-01-08 16:00] VITALS: BP 135/84
[2019-01-08] MEDS: Vancomycin 1.5gm/NS Premix IVPB SCH (18:29)
[2019-01-08 20:00] VITALS: BP 117/78
[2019-01-08] MEDS: Dyna-Hex 2% Top Sol 2oz TOPIC SCH (20:09)
[2019-01-08] MEDS: Tamsulosin 0.4mg cap ORAL SCH (20:10)
--- NOTE | 2019-01-08 21:02 | General Progress Note ---
Assessment/Plan Problem List: (1) Leg pain ICD Codes: M79.606 - Leg pain SNOMED: 92259138 (2) Anemia ICD Codes: D64.9 - Anemia, unspecified SNOMED: 604534508 (3) Amputation stump infection ICD Codes: T87.40 - Infection of amputation stump, unspecified extremity SNOMED: 658541693 (4) Postoperative wound closure planning ICD Codes: Z48.1 - Encounter for planned postprocedural wound closure SNOMED: 969835565 (5) Stump injury ICD Codes: T14.8 - Other injury of unspecified body region SNOMED: 086293983 (6) Infection of amputation stump, right lower extremity ICD Codes: T87.43 - Infection of amputation stump, right lower extremity SNOMED: 646860498, 476664923 Status: progressing Assessment/Plan: ue edema dc iv fluid and ordered u/s of UE I&d by dr duarte check labs no fever wound care snf not accepting s/p infected wound dehiscence needs snf placement for wound care and abx Subjective ROS Limited/Unobtainable: Yes Allergies: Coded Allergies: No Known Allergies (Unverified , 01/04/17) Subjective chronic pain s/p i&d of infected wound and amputation site afebrile reviewed chart and labs needs snf placement Objective Last 24 Hour Vital Signs Date Time Temp Pulse Resp B/P (MAP) Pulse Ox O2 Delivery O2 Flow Rate FiO2 01/08/19 20:00 97.7 66 18 117/78 (91) 97 01/08/19 16:00 99.0 85 18 135/84 (101) 94 01/08/19 12:00 98.2 89 18 141/74 (96) 95 01/08/19 09:00 Room Air 01/08/19 08:00 98.1 82 18 137/76 (96) 94 01/08/19 04:00 97.7 80 19 140/80 (100) 97 01/08/19 00:00 97.8 76 19 142/75 (97) 96 Intake and Output 01/07/19 01/08/19 18:59 06:59 Intake Total 385.0 ml 1360 ml Output Total 0 ml 615 ml Balance 385.0 ml 745 ml Intake Oral 460 ml IV Total 385.0 ml 100 ml Other 800 ml Output Urine Total 600 ml Drainage Total 0 ml 0 ml Estimated Blood Loss 15 ml # Voids 1 # Bowel Movements 2 Height (Feet): 5 Height (Inches): 0.00 Weight (Pounds): 160 Neck: supple Cardiovascular: normal rate Respiratory/Chest: lungs clear Rossy Samuel MD Jan 08, 2019 21:02
[2019-01-09] VITALS: BP 124/76
[2019-01-09] MEDS: HYDROmorphone 2mg tab ORAL PRN ×5 (04:03→16:40)
[2019-01-09 08:00] VITALS: BP 146/72
--- NOTE | 2019-01-09 08:25 | Hematology/Onc Progress Note ---
Assessment/Plan Assessment/Plan IMPRESSION/RECS: # Pacnytopenia -- initially presented with Anemia due to underlying iron deficiency, r/o gi bleed - also with multifactorial component, also may be related to abx --> anemia panel reviewed and noted with Iron def --> has been started on iv iron x 5 day course --> hgb transfuse if hgb lower than 7 --> hgb trend 10.6-->10.1-->9.9-->9.3-->10.7-->8.1-->8.2-->8 --> HOLDING OFF LABS q3 days --> occult ++, dw pcp, outpatient w/u with gi --> plt trend 117-->148k-->46-->48-->48->52-->87-->116k --> wbc trend 5-->4-->3.5 --> hiv negative, hepatitis panel negative --> imaging abd reviewed --> meds reviewed, consider abx as per id care # History of melanoma. --> currently in remission # Amputation stump infection, BKA +++, more on right side --> on cefepime/vanc--> leva/vanc x 34 d--> zosyn, vanc, levaquin--> vanc/levaqu --> as per id recs --> surg, pod recs --> s/p i&d 01/02 # Wound dehiscence of right amputation stump. --> eval with surg, pod # Hypothyroidism. --> started on synthroid # Dvt ppx scds Time of note does not necessarily correspond to when patient seen Greatly appreciate consultation. Subjective Cardiovascular: Denies: no symptoms, chest pain, edema, irregular heart rate, lightheadedness, palpitations, syncope, other Respiratory: Denies: no symptoms, cough, shortness of breath, SOB with excertion, SOB at rest, sputum, wheezing, other Gastrointestinal/Abdominal: Denies: no symptoms, abdomen distended, abdominal pain, black stools, tarry stools, blood in stool, constipated, diarrhea, difficulty swallowing, nausea, poor appetite, poor fluid intake, rectal bleeding , vomiting, other Genitourinary: Denies: no symptoms, burning, discharge, frequency, flank pain, hematuria, incontinence, pain, urgency, other Neurologic/Psychiatric: Denies: no symptoms, anxiety, depressed, emotional problems, headache, numbness, paresthesia, pre-existing deficit, seizure, tingling, tremors, weakness, other Endocrine: Denies: no symptoms, excessive sweating, flushing, intolerance to cold, intolerance to heat, increased hunger, increased thirst, increased urine, unexplained weight gain, unexplained weight loss, other Hematologic/Lymphatic: Denies: no symptoms, anemia, easy bleeding, easy bruising, adenopathy, other Allergies: Coded Allergies: No Known Allergies (Unverified , 01/04/17) Subjective 12/09: no events, remains on abx, has been started on iv iron, hgb .12/11: s/p right leg wound debridement, cultures pending 12/12: vs stable, on abx, cultures noted, bleeding noted on dressing 12/13: no bleeding or chills, labs reviewed, no major night sweats 12/14: no events, no bleeding, wants to take off wound vac and take a shower, no f 12/15: no f/c, vs stable, no bleeding, no acute events, meds reviewed 12/17: leg pain, 06/11, refusing labs currently, no f/c, no bleeding 12/18: no changes, no bleeding, wound better 12/19: refusing labs, pain less today, laying flat 12/20: complaining with rn has had too many blood draws 12/21: no bleeding, chills or night sweats, no major changes 12/22: complaining of some pain, does not want any further lab draws 12/23: no bleeding, no night sweats, no major changes, right stump pain 12/25; refusing care, seen by id, no major changes, no bleeding 12/26: piccline in place, no events, doesn't want am lab draws 12/27: awake and alert, no acute events, afebrile 12/28: no events to report o/n, is on levaquin and zyvox x 20 days, no bleeding 12/29: no acute events, c/o pain, h/h stable, repeat cbc tomorrow 12/30: berating staff this am, does not want to draw blood, even though hgb 8.1 01/01: no bleeding, no events hgb was 8.2, 2 days ago, no major changes 01/02: s/p i&d, urine cx and hep panel both negative, on abx 01/03: no bleeding noted, no night sweats, labs reviewed, wound vac++ 01/04: no bleeding, with picc, labs noted, no major changes 01/05: no bleeding, sleeping comfortably, have ordered us abd to r/o cirrhosis 01/08: has been refusing his labs this am, does not want any further lab draws 01/09: awake, alert, no bleeding, refusing labs Objective Objective Current Medications Medications (Trade) Dose Ordered Sig/Trever Route PRN Reason Start Time Stop Time Status Last Admin Dose Admin Chlorhexidine Gluconate (Sammie-Hex 2%) 1 applic DAILY@1999 TOPIC 01/06/19 20:00 02/05/19 19:59 01/08/19 20:09 Hydromorphone HCl (Dilaudid) 2 mg Q4H PRN ORAL Severe Pain (Pain Scale 7-10) 01/08/19 14:00 01/15/19 13:59 01/09/19 08:15 Hydromorphone HCl (Dilaudid) 4 mg DAILYPRN PRN ORAL 30MIN BEFORE DRESSING CHANGE 01/08/19 13:00 01/15/19 12:59 01/08/19 20:10 Levofloxacin (Levaquin) 250 mg DAILY ORAL 12/23/18 09:00 01/16/19 23:59 01/09/19 08:14 Naloxone HCl (Narcan) 0.2 mg Q2M PRN IVP RESPRITORY DEPRESSION 12/29/18 08:30 01/28/19 08:29 Potassium Chloride (K-Dur) 40 meq TWICE A DAY ORAL 01/06/19 10:00 02/05/19 09:59 01/09/19 08:14 Tamsulosin HCl (Flomax) 0.4 mg BEDTIME ORAL 12/30/18 21:00 01/29/19 20:59 01/08/19 20:10 Temazepam (Restoril) 15 mg HSPRN PRN ORAL Insomnia 01/04/19 07:15 01/11/19 07:14 01/09/19 02:18 Temazepam (Restoril) 30 mg HSPRN PRN ORAL Insomnia 01/04/19 07:45 01/11/19 07:14 01/08/19 21:03 Vancomycin HCl (Vanco rx to dose) 1 ea DAILY PRN MISC Per rx protocol 01/07/19 11:00 02/06/19 10:59 Vancomycin/Sodium Chloride 275 ml @ 137.5 mls/ hr Q24H IVPB 01/08/19 17:00 01/17/19 16:59 01/08/19 18:29 Last 24 Hour Vital Signs Date Time Temp Pulse Resp B/P (MAP) Pulse Ox O2 Delivery O2 Flow Rate FiO2 01/09/19 00:00 97.3 72 20 124/76 (92) 95 01/08/19 21:00 Room Air 01/08/19 20:00 97.7 66 18 117/78 (91) 97 01/08/19 16:00 99.0 85 18 135/84 (101) 94 01/08/19 12:00 98.2 89 18 141/74 (96) 95 01/08/19 09:00 Room Air 01/08/19 08:00 98.1 82 18 137/76 (96) 94 01/08/19 04:00 97.7 80 19 140/80 (100) 97 01/08/19 00:00 97.8 76 19 142/75 (97) 96 01/07/19 21:00 Room Air 01/07/19 20:00 98.1 93 19 117/67 (84) 95 01/07/19 16:00 98.6 84 17 128/68 (88) 98 01/07/19 12:00 97.9 78 19 141/92 (108) 93 01/07/19 09:00 Room Air Intake and Output 01/08/19 01/09/19 19:00 07:00 Intake Total 275.0 ml Balance 275.0 ml IV Total 275.0 ml # Voids 2 Labs Test 01/07/19 11:30 White Blood Count 5.2 K/UL (4.8-10.8) Red Blood Count 2.51 M/UL (4.70-6.10) Hemoglobin 8.0 G/DL (14.2-18.0) Hematocrit 23.6 % (42.0-52.0) Mean Corpuscular Volume 94 FL (80-99) Mean Corpuscular Hemoglobin 31.9 PG (27.0-31.0) Mean Corpuscular Hemoglobin Concent 33.9 G/DL (32.0-36.0) Red Cell Distribution Width 15.2 % (11.6-14.8) Platelet Count 116 K/UL (150-450) Mean Platelet Volume 8.1 FL (6.5-10.1) Neutrophils (%) (Auto) 68.9 % (45.0-75.0) Lymphocytes (%) (Auto) 17.6 % (20.0-45.0) Monocytes (%) (Auto) 7.8 % (1.0-10.0) Eosinophils (%) (Auto) 5.1 % (0.0-3.0) Basophils (%) (Auto) 0.7 % (0.0-2.0) Sodium Level 144 MMOL/L (136-145) Potassium Level 3.7 MMOL/L (3.5-5.1) Chloride Level 111 MMOL/L (98-107) Carbon Dioxide Level 28 MMOL/L (21-32) Anion Gap 5 mmol/L (5-15) Blood Urea Nitrogen 8 mg/dL (7-18) Creatinine 1.0 MG/DL (0.55-1.30) Estimat Glomerular Filtration Rate mL/min (>60) Glucose Level 98 MG/DL (74-106) Uric Acid 2.9 MG/DL (2.6-7.2) Calcium Level 8.0 MG/DL (8.5-10.1) Phosphorus Level 2.8 MG/DL (2.5-4.9) Magnesium Level 1.7 MG/DL (1.8-2.4) Iron Level 24 ug/dL (50-175) Total Iron Binding Capacity 171 ug/dL (250-450) Percent Iron Saturation 14 % (15-50) Unsaturated Iron Binding 147 ug/dL (112-346) Ferritin 152 NG/ML (8-388) Total Bilirubin 0.8 MG/DL (0.2-1.0) Aspartate Amino Transf (AST/SGOT) 19 U/L (15-37) Alanine Aminotransferase (ALT/SGPT) 31 U/L (12-78) Alkaline Phosphatase 285 U/L (46-116) Total Protein 5.8 G/DL (6.4-8.2) Albumin 2.2 G/DL (3.4-5.0) Globulin 3.6 g/dL Albumin/Globulin Ratio 0.6 (1.0-2.7) Vitamin B12 Level 258 PG/ML (193-986) Folate 17.4 NG/ML (8.6-58.9) Thyroid Stimulating Hormone (TSH) 1.340 uiU/mL (0.358-3.740) Vancomycin Level Trough 15.6 ug/mL (5.0-12.0) Height (Feet): 5 Height (Inches): 0.00 Weight (Pounds): 160 Objective Vitals: reviewed Gen: Nad Pulm: Ctab CV: rrr, no mgr Abd: soft, nt, nd Ext: b/l bka noted, dressings+, wound vac Oseas Tong MD Jan 09, 2019 08:25
--- NOTE | 2019-01-09 08:59 | General Progress Note ---
Assessment/Plan Assessment/Plan: (1) B/L BKA (2) B/L stump pain (3) s/p stump revision (4) Phantom limb pain The patient will be continued on Dilaudid. The patient was discussed with Dr. Velasquez and Dr. Velasquez concurred. Subjective Date patient seen: Jan 09, 2019 Time patient seen: 08:00 - am Allergies: Coded Allergies: No Known Allergies (Unverified , 01/04/17) Subjective REVIEW OF SYSTEMS: Denies rash, fever, chills, sweating, dizziness, drowsiness, or change in weight. No shortness of breath or chest pain. No nausea, vomiting, or blood in the stool or urine. He is complaining of bilateral lower extremity. SUBJECTIVE: Pt is in bed continues to c/o severe pain. The Dilaudid IV was discontinued and started on Dilaudid 2mg PO 1 tab Q4H PRN severe pain and Dilaudid 4mg PO 1 tab PRN 30 MIN prior to dressing changes. He has used 3 doses of Dilaudid 2mg and 2 doses of Dilaudid 4mg. He has no new complaints at this time. Objective Last 24 Hour Vital Signs Date Time Temp Pulse Resp B/P (MAP) Pulse Ox O2 Delivery O2 Flow Rate FiO2 01/09/19 00:00 97.3 72 20 124/76 (92) 95 01/08/19 21:00 Room Air 01/08/19 20:00 97.7 66 18 117/78 (91) 97 01/08/19 16:00 99.0 85 18 135/84 (101) 94 01/08/19 12:00 98.2 89 18 141/74 (96) 95 01/08/19 09:00 Room Air Intake and Output 01/08/19 01/09/19 19:00 07:00 Intake Total 275.0 ml Balance 275.0 ml IV Total 275.0 ml # Voids 2 Height (Feet): 5 Height (Inches): 0.00 Weight (Pounds): 160 Objective GENERAL: Alert, awake, and oriented x3. LUNGS: Clear bilaterally. HEART: S1 S2 Regular. ABDOMEN: Soft non-tender. EXTREMITIES: Bilateral [id number] amputation noted. wound vac applied to right LE. NEURO: No changes. Hiram Griffin Jan 09, 2019 08:59
--- NOTE | 2019-01-09 11:09 | Infectious Diseases Prog Note ---
Assessment/Plan Assessment/Plan IMPRESSION: 1. Amputation stump infection, more in the right side. - cultures; MRSA, Enterococcus ( VRE & Proteus - bone biopsy, like acute osteomyelitis 2 wound dehiscence of right amputation stump. 3. Anemia. 4. Hypothyroidism. 5. History of melanoma. 6. thrombocytopenia 10.Dysuria, ? BPH 11. 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 We will continue with Levaquin & IV Vancomycin X 8 days Subjective ROS Limited/Unobtainable: No Constitutional: Reports: no symptoms Musculoskeletal: Reports: pain Allergies: Coded Allergies: No Known Allergies (Unverified , 01/04/17) Objective Vital Signs Last 24 Hour Vital Signs Date Time Temp Pulse Resp B/P (MAP) Pulse Ox O2 Delivery O2 Flow Rate FiO2 01/09/19 08:00 98.2 76 16 146/72 (96) 98 01/09/19 00:00 97.3 72 20 124/76 (92) 95 01/08/19 21:00 Room Air 01/08/19 20:00 97.7 66 18 117/78 (91) 97 01/08/19 16:00 99.0 85 18 135/84 (101) 94 01/08/19 12:00 98.2 89 18 141/74 (96) 95 Height (Feet): 5 Height (Inches): 0.00 Weight (Pounds): 160 HEENT: mucous membranes moist Respiratory/Chest: lungs clear Cardiovascular: normal rate, other - PICC line Abdomen: soft, non tender Extremities: other - decreased hands edema, bilateral BKA Skin: ulcers, other - R leg stump wound-vac Neurologic/Psychiatric: alert, oriented x 3, responsive Current Medications Medications (Trade) Dose Ordered Sig/Trever Route PRN Reason Start Time Stop Time Status Last Admin Dose Admin Chlorhexidine Gluconate (Sammie-Hex 2%) 1 applic DAILY@1999 TOPIC 01/06/19 20:00 02/05/19 19:59 01/08/19 20:09 Hydromorphone HCl (Dilaudid) 2 mg Q3H PRN ORAL Severe Pain (Pain Scale 7-10) 01/09/19 11:00 01/16/19 10:59 Hydromorphone HCl (Dilaudid) 4 mg DAILYPRN PRN ORAL 30MIN BEFORE DRESSING CHANGE 01/08/19 13:00 01/15/19 12:59 01/08/19 20:10 Levofloxacin (Levaquin) 250 mg DAILY ORAL 12/23/18 09:00 01/16/19 23:59 01/09/19 08:14 Naloxone HCl (Narcan) 0.2 mg Q2M PRN IVP RESPRITORY DEPRESSION 12/29/18 08:30 01/28/19 08:29 Potassium Chloride (K-Dur) 40 meq TWICE A DAY ORAL 01/06/19 10:00 02/05/19 09:59 01/09/19 08:14 Tamsulosin HCl (Flomax) 0.4 mg BEDTIME ORAL 12/30/18 21:00 01/29/19 20:59 01/08/19 20:10 Temazepam (Restoril) 15 mg HSPRN PRN ORAL Insomnia 01/04/19 07:15 01/11/19 07:14 01/09/19 02:18 Temazepam (Restoril) 30 mg HSPRN PRN ORAL Insomnia 01/04/19 07:45 01/11/19 07:14 01/08/19 21:03 Vancomycin HCl (Vanco rx to dose) 1 ea DAILY PRN MISC Per rx protocol 01/07/19 11:00 02/06/19 10:59 Vancomycin/Sodium Chloride 275 ml @ 137.5 mls/ hr Q24H IVPB 01/08/19 17:00 01/17/19 16:59 01/08/19 18:29 Partha Obrien MD Jan 09, 2019 11:09
[2019-01-09] MEDS ORDERED: LEVAQUIN500 MG ORAL (11:15)
[2019-01-09] MEDS ORDERED: VANCOMYCIN1.5 GM/300 IV (11:17)
[2019-01-09 12:00] VITALS: BP 141/80
--- NOTE | 2019-01-09 15:45 | Surgery Progress Note ---
Surgery Progress Note Subjective Additional Comments no acute events comfortable stable wants to go home now as he does not want to be in a SNF vac removed as per plastics. d/c home Objective Last 24 Hour Vital Signs Date Time Temp Pulse Resp B/P (MAP) Pulse Ox O2 Delivery O2 Flow Rate FiO2 01/09/19 12:00 97.9 73 18 141/80 (100) 91 01/09/19 09:00 Room Air 01/09/19 08:00 98.2 76 16 146/72 (96) 98 01/09/19 00:00 97.3 72 20 124/76 (92) 95 01/08/19 21:00 Room Air 01/08/19 20:00 97.7 66 18 117/78 (91) 97 01/08/19 16:00 99.0 85 18 135/84 (101) 94 I&O Intake and Output 01/08/19 01/09/19 19:00 07:00 Intake Total 275.0 ml Balance 275.0 ml IV Total 275.0 ml # Voids 2 Dressing: dry Wound: clean Cardiovascular: RSR Respiratory: clear Abdomen: soft, flat, non-tender, present bowel sounds Extremities: no edema, no tenderness, no cyanosis Plan Problems: (1) Amputation stump infection Assessment & Plan: bilateral lower extremity below-knee amputations. On the right side the recent revision flap has dehisced and serous purulent drainage identified with viable sutures and palpable bone. On the left side the flap is intact on the medial aspect there is drainage coming from the wound bed in between the barbara. There is an opening on the lateral aspect approximately 2 cm x 2 cm with unknown depth given its location. We will currently continue with localized wound care as I discussed with the operating orthopedic surgeon about potential management. I discussed with the patient the current findings and the potential necessity for reoperation versus ray amputation. Versus potential salvage. Continue with IV antibiotics s/p debridement by plastic surgery 12/11 wound vac placed today by myself 12/12 d/c planning With follow with local wound care and evaluation We will discuss with orthopedic and medical team Thank you for allowing participate patient's care (2) Sacral decubitus ulcer Assessment & Plan: This is a 88-year-old male with multiple small full- thickness sacral decubitus ulcers. Patient states that he formed because he was laying flat for 15 days at an outside facility. Identified upon admission and initiated care plan. Periwound seems to have prior healing areas as well as acute inflamed areas with full-thickness breakdown approximately 1 cm x 1 cm on the left buttock/sacral cleft and similarly on the right as well. No active drainage. No foul order. Pt presented on admission with keloid scar with hyperpigmentation sacrum from previous pressure injury;confirmed by pt. Dry loose skin noted to R and L sacrum. No open areas noted. Pt denied tenderness when site palpated. Pt resistive to being repositioned on his sides and was educated of potential risks for already compromised skin to breakdown . Pt demonstrated ability to reposition self when cued.Demonstrated to pt on how to utilize side rails to off -lift buttocks and shift weight in bed. Skin lesions noted to R and L scalp. Pt verbalized he has skin cancer and lesions were recently removed. Hypergranular skin lesions also noted to Lateral L thigh. Apply Moisture Barrier Paste to Sacrum. Cover with Optifoam drsg. Change every 3 days and prn. Encourage and assist with repositioning at least every 2hours or as tolerated.Elevate BKA stumps on pillow. Turn every 2 hours. Patient willing and does assist with ensuring that he turns every so often Offload stump pressures with pillow Thank you for allowing me to participate in patient's care will follow with recommendations (3) Postoperative wound closure planning (4) Stump injury Assessment & Plan: s/p debridement by plastic surgery 12/11 wound vac placed today by myself 12/12 d/c planning plan for VAC upon discharge to SNF NPWT R BKA changed to today. Wound resolving(L)2.1cm x (W)5.2cm x (D)0.3cm. [place] granulation at base of wound .Edges flat and adherent to base of wound. Periwound is intact.No odor noted. 20ml serous exudate noted in canister. Wound cleansed with Saline. [place] Skin Barrier applied periwound then covered with transparent drape. Granulofoam cut to conform to wound. Additional granulofoam cut to accommodate Sensor trac pad. Covered with transparent drsg. NPWT resumed @125mm/Hg to continuous suction. Pt tolerated procedure well. Wounds L BKA wound medial aspect of L BKA hypergranular, oozing small amt of non -odorous serous exudate. Periwound without erythema or induration. Wound urvashi L BKA hypergranular ,oozing small amt of non-odorous serous exudate . Periwound without erythema or induration. Application of Silver Nitrate sticks applied to both woundsfor hypergranulation. Both wounds covered with Gauze then ABD pad and wrapped with Kerlix. Pt denied pain L BKA. Findings: X-ray better demonstrates signs of recent surgery with surgical clips barbara at the site of a below the knee amputation. The cortical margin at the tibial stump appears intact both on x-ray and MRI. MRI examination does demonstrate bone marrow edema in the anterior inferior aspect of the tibial stump. Adjacent soft tissue swelling is present. Given recent surgery the soft tissue changes are expected. The bone marrow edema could be reactive marrow edema or due to osteomyelitis. Suspect the former. Similar signal alteration noted within the left tibial stump (left lower extremity partially imaged on this study on the transcoronal sequences). thank you (5) Infection of amputation stump, right lower extremity Assessment & Plan: much improved d/c planning cont vac on d/c Jaiden Teresa Jan 09, 2019 15:45
[2019-01-09 16:00] VITALS: BP 149/86
[2019-01-09] MEDS: Vancomycin 1.5gm/NS Premix IVPB SCH (16:41)
--- NOTE | 2019-01-09 19:52 | General Progress Note ---
Assessment/Plan Problem List: (1) Leg pain ICD Codes: M79.606 - Leg pain SNOMED: 73460803 (2) Anemia ICD Codes: D64.9 - Anemia, unspecified SNOMED: 510244675 (3) Amputation stump infection ICD Codes: T87.40 - Infection of amputation stump, unspecified extremity SNOMED: 741317504 (4) Postoperative wound closure planning ICD Codes: Z48.1 - Encounter for planned postprocedural wound closure SNOMED: 569489526 (5) Stump injury ICD Codes: T14.8 - Other injury of unspecified body region SNOMED: 612598325 (6) Infection of amputation stump, right lower extremity ICD Codes: T87.43 - Infection of amputation stump, right lower extremity SNOMED: 638021004, 225152907 Status: progressing Assessment/Plan: going to snf see dc summary for details no fever wound care snf not accepting s/p infected wound dehiscence needs snf placement for wound care and abx Subjective ROS Limited/Unobtainable: Yes Allergies: Coded Allergies: No Known Allergies (Unverified , 01/04/17) Subjective chronic pain s/p i&d of infected wound and amputation site afebrile reviewed chart and labs needs snf placement Objective Last 24 Hour Vital Signs Date Time Temp Pulse Resp B/P (MAP) Pulse Ox O2 Delivery O2 Flow Rate FiO2 01/09/19 16:00 97.3 81 19 149/86 (107) 97 01/09/19 12:00 97.9 73 18 141/80 (100) 91 01/09/19 09:00 Room Air 01/09/19 08:00 98.2 76 16 146/72 (96) 98 01/09/19 00:00 97.3 72 20 124/76 (92) 95 01/08/19 21:00 Room Air 01/08/19 20:00 97.7 66 18 117/78 (91) 97 Intake and Output 01/08/19 01/09/19 19:00 07:00 Intake Total 275.0 ml Balance 275.0 ml IV Total 275.0 ml # Voids 2 Height (Feet): 5 Height (Inches): 0.00 Weight (Pounds): 160 Cardiovascular: normal rate Respiratory/Chest: lungs clear Rossy aSmuel MD Jan 09, 2019 19:52
[2019-01-09] MEDS: Dyna-Hex 2% Top Sol 2oz TOPIC SCH (20:00)
[2019-01-09] MEDS: Tamsulosin 0.4mg cap ORAL SCH (21:46)
--- NOTE | 2019-01-10 12:49 | Discharge Summary ---
Discharge Summary Discharge Summary _ DATE OF ADMISSION: 12/05/2018 DATE OF DISCHARGE: 01/09/2019 DISCHARGED BY: REASON FOR ADMISSION: 82 years old male, with past medical history of malignant melanoma, bilateral BKA with multiply revision, hypothyroidism, presented for evaluation of wound dehiscence and stump infection. Last stump revision was about 2 weeks ago. Patient developed infection in the right stump leading to dehiscence of the suture line. According to paperwork from his orthopedic surgeon Dr. Feldman, patient was refusing to come to the hospital prior. Patient noted warmth and tenderness over both stumps, but on the right it was worse than on the left. Patient denied fever or chills. Patient denied chest pain or shortness of breath. Patient denied cough or congestion. Patient denied abdominal pain, vomiting diarrhea, dysuria. Patient was sent by his orthopedic surgeon for antibiotic and further management. Upon evaluation vital signs were stable. Laboratory work-up revealed no leukocytosis, hemoglobin 10.6 , hematocrit 29.6 , platelet count 174. Stable electrolytes. Glucose 113. Lactic acid 0.7. BUN 16, creatinine 1.2. Stable LFT. Troponin negative . Pro BNP 347 . Albumin 2.9. In the emergency department patient pancultured , started on empiric antibiotic and admitted for further management. CONSULTANTS: ID specialist Dr. Sarkar buckle assembler Dr. Craft pain specialist Dr. Velasquez Plastic surgeon Dr. Roldan emergency room technician/oncologist [facility] COURSE: Patient admitted to medical surgical floor and started on empiric antibiotics. Wound care provided. MRI of the right tibia-fibula revealed equivocal findings. Osteomyelitis versus reactive bone marrow edema due to recent surgery and / or cellulitis. Favor reactive edema as the diagnosis. Similar finding in the left tibial stump. Chest x-ray of the right tibia-fibula revealed postoperative changes , no acute abnormality. Venous duplex of upper extremity reveal no evidence of acute DVT. Antibiotic provided as per ID specialist recommendation. Blood cultures were negative. Wound culture revealed Proteus ESBL, VRE, MRSA . Plastic surgeon seen and evaluated patient. Patient noted to have infected ulcer of the right stump with exposed bone. Per plastic surgeon , patient had an option either convert to above-knee amputation or perform debridement and wound care, including a wound VAC in conjunction with a long-term antibiotic to try secondary healing this wound. However it still may be ended up to be converted to above-knee amputation if the BKA stump continue to cause problem. Patient undergone excisional debridement of right BKA stump wound, biopsy of tibia, bone culture. Surgical biopsy revealed findings suspicious for acute osteomyelitis. Wound VAC applied as per plastic surgeon recommendations. Patient also had few superficial left knee ulcers , treated with local wound care. Patient was responding to treatment with wound VAC. Plastic surgeon closely followed and monitored for wound healing. Right BKA wound with fibrotic debris at the base, was healing, no bone was exposed, less deep. Left BKA ulcer with clean granular base. Wound VAC was subsequently discontinued by plastic surgeon on 01/08. Patient was started on collagen dressing to the right wound with every otehr day change and padding to the left side. Plastic surgeon cleared patient for discharge to facility. Patient will need to have nonweightbearing on both stumps until fully healed. Infectious disease specialist closely followed. Antibiotics provided as per infectious disease specialist recommendation. Complete antibiotic course at the facility for additional 8 days. Urine culture revealed Morganella . Patient will need to complete antibiotic at the facility as recommended by ID specialist Authorization Rep closely followed. Renal parameters and electrolytes were closely monitored, electrolytes corrected as needed , and nephrotoxins were avoided. Solid Fiber Paster Operator followed. Hemoglobin and hematocrit were closely monitor with goal to keep hemoglobin above 7. Patient was transfused with 1 unit of packed red blood cell for hemoglobin 6.8 and hematocrit 20.2. Platelet count initially was stable , then showed significant trend down with lowest being 46, but upon discharge increased to 116. Anemia work-up was consistent with anemia of iron deficiency. Patient was on IV Venofer for 5 days. Stool for occult blood was positive x2. Patient will follow up as outpatient with GI specialist. HIV test was nonreactive; hepatitis panel was negative. Melanoma was currently in remission. Wound care, for present on admission sacral decubitus ulcer , provided as per surgeon recommendation. Continue wound care at the facility. Synthroid continued, TSH within normal range. Flomax continued. Supportive care provided. Pain management was addressed as needed. . Patient clinically stabilized . Transfer was arranged to half-way facility as alf for further management. FINAL DIAGNOSES: Amputation stump infection (more on the right side) , with MRSA, VRE , Proteus ESBL Wound dehiscence of right amputated stump Status post excisional debridement of right BKA stump wound, biopsy of tibia, bone culture Likely acute osteomyelitis Severe anemia , status post blood transfusion Anemia of iron deficiency Dysuria, probably UTI History of malignant melanoma, in remission currently Hypothyroidism Sacral decubitus ulcer, present on admission Electrolyte imbalance: hypokalemia, hypomagnesemia Thrombocytopenia BPH DISCHARGE MEDICATIONS: List of medication was sent to accepting facility DISCHARGE INSTRUCTIONS: Patient was discharged to the half-way facility. Follow up with medical doctor at the facility. I have been assigned to dictate discharge summary for this account. I was not involved in the patient's management. Dinah Alvarez NP Jan 10, 2019 12:49
== END 2019-01-09 22:20 | DRG 477 ==
LOC: EDBD 17:20 → EDSEX 17:20 → EMR 17:55 → 4E 19:35 → EDBD 19:35 → EDBEDREQ 20:04
PROC: 0KBS0ZZ Excision of Right Lower Leg Muscle, Open Approach (ICD-10-PCS; principal; 2018-12-11 07:30)
PROC: 0QBG0ZX Excision of Right Tibia, Open Approach, Diagnostic (ICD-10-PCS; principal; 2018-12-11 07:30)
DX: T87.43 Infection of amputation stump, right lower extremity (principal); L89.153 Pressure ulcer of sacral region, stage 3; M86.161 Other acute osteomyelitis, right tibia and fibula; N39.0 Urinary tract infection, site not specified; D61.818 Other pancytopenia; T87.44 Infection of amputation stump, left lower extremity; T87.81 Dehiscence of amputation stump; E03.9 Hypothyroidism, unspecified; Z85.820 Personal history of malignant melanoma of skin; B95.62 Methicillin resistant Staphylococcus aureus infection as the cause of diseases classified elsewhere; D50.9 Iron deficiency anemia, unspecified; E87.6 Hypokalemia; E83.42 Hypomagnesemia; D69.6 Thrombocytopenia, unspecified; N40.0 Benign prostatic hyperplasia without lower urinary tract symptoms; G54.6 Phantom limb syndrome with pain
CPT/HCPCS: 36415; 80048; 80053; 80061; 80202; 81003; 82270; 82550; 82607; 82728; 82746; 83036; 83540; 83550; 83605; 83735; 83880; 84100; 84439; 84443; 84481; 84484; 84550; 85007; 85025; 85610; 85651; 85730; 86140; 86703; 86705; 86709; 86803; 86850; 86900; 86901; 86920; 87040; 87070; 87075; 87081; 87086; 87181; 87205; 87340; 93970; 94003; 94150; 96365; 96366; 96368; 96375; 99285; J8499

== ENCOUNTER 2019-01-15 08:45 | Outpatient (RCR) | payer MEDICARE, MEDICAID ==
[~2019-01-15 08:45] MED LIST changes: +ACETAMINOPHEN500 M3 ORAL; +BACTRIM DS TAB1 EAC1 ORAL; +BISACODYL10 M1 RC; +DILAUDID 22 MG/1 M2 IJ; +LEVAQUIN500 MG ORAL; +MYLANTA DS PO; +OMEPRAZOLE40 M1 ORAL; +PRILOSEC OTC20 MG ORAL; +SENNA LAXATIVE8.6 MG PO; +VANCOMYCIN1.5 GM/300 IV; +ZYVOX600 MG ORAL
== END 2019-02-01 | disposition home or self-care (01) ==
LOC: WCC 08:45
DX: L97.813 Non-pressure chronic ulcer of other part of right lower leg with necrosis of muscle (principal); L97.822 Non-pressure chronic ulcer of other part of left lower leg with fat layer exposed; T81.31XS Disruption of external operation (surgical) wound, not elsewhere classified, sequela; X58.XXXS Exposure to other specified factors, sequela; E03.9 Hypothyroidism, unspecified; Z89.612 Acquired absence of left leg above knee; Z89.611 Acquired absence of right leg above knee
CPT/HCPCS: 11042; 11043

== ENCOUNTER 2019-04-09 08:40 | Outpatient (RCR) | payer MEDICARE, MEDICAID | END 2019-05-04 | disposition home or self-care (01) | LOC: WCC 08:40 | DX: L97.813 Non-pressure chronic ulcer of other part of right lower leg with necrosis of muscle (principal); L97.822 Non-pressure chronic ulcer of other part of left lower leg with fat layer exposed; T81.31XS Disruption of external operation (surgical) wound, not elsewhere classified, sequela; L97.824 Non-pressure chronic ulcer of other part of left lower leg with necrosis of bone; L97.814 Non-pressure chronic ulcer of other part of right lower leg with necrosis of bone; L97.823 Non-pressure chronic ulcer of other part of left lower leg with necrosis of muscle; Z89.512 Acquired absence of left leg below knee; Z89.511 Acquired absence of right leg below knee; E03.9 Hypothyroidism, unspecified; Z85.820 Personal history of malignant melanoma of skin | CPT/HCPCS: 11043; 11044 ==

== ENCOUNTER 2019-05-07 08:22 | Outpatient (RCR) | payer MEDICARE, MEDICAID ==
[~2019-05-07] VITALS: Ht 165.1 cm; Wt 74.8 kg
[2019-05-28] MEDS ORDERED: Lidocaine 4% Top Soln 50ml TOPIC ONE (16:30)
== END 2019-06-02 | disposition home or self-care (01) ==
LOC: WCC 08:22
DX: L97.813 Non-pressure chronic ulcer of other part of right lower leg with necrosis of muscle (principal); L97.822 Non-pressure chronic ulcer of other part of left lower leg with fat layer exposed; T81.31XS Disruption of external operation (surgical) wound, not elsewhere classified, sequela; L97.824 Non-pressure chronic ulcer of other part of left lower leg with necrosis of bone; L97.814 Non-pressure chronic ulcer of other part of right lower leg with necrosis of bone; L97.823 Non-pressure chronic ulcer of other part of left lower leg with necrosis of muscle; L97.812 Non-pressure chronic ulcer of other part of right lower leg with fat layer exposed; Z89.512 Acquired absence of left leg below knee; Z89.511 Acquired absence of right leg below knee; E03.9 Hypothyroidism, unspecified; Z85.820 Personal history of malignant melanoma of skin
CPT/HCPCS: 11042; 11043; 11044

== ENCOUNTER 2019-06-04 08:35 | Outpatient (RCR) | payer MEDICARE, MEDICAID ==
[2019-06-04] MEDS ORDERED: MIRTAZAPINE15 MG ORAL (12:14)
== END 2019-07-03 | disposition home or self-care (01) ==
LOC: WCC 08:35
DX: L97.523 Non-pressure chronic ulcer of other part of left foot with necrosis of muscle (principal); L97.522 Non-pressure chronic ulcer of other part of left foot with fat layer exposed; E11.621 Type 2 diabetes mellitus with foot ulcer; I70.248 Atherosclerosis of native arteries of left leg with ulceration of other part of lower leg; L97.524 Non-pressure chronic ulcer of other part of left foot with necrosis of bone; F17.210 Nicotine dependence, cigarettes, uncomplicated; E11.9 Type 2 diabetes mellitus without complications; Z85.118 Personal history of other malignant neoplasm of bronchus and lung; Z79.82 Long term (current) use of aspirin
CPT/HCPCS: 11043; 11044

== ENCOUNTER 2019-06-04 10:01 | Inpatient (IN) | payer MEDICARE, MEDICAID ==
[~2019-06-04] VITALS: Ht 165.1 cm; Wt 88.1 kg
--- NOTE | 2019-06-04 10:06 | NUR ---
ED Nurse Note: Pt ambulated to ED from home d/t possible infection as he was reffered by his neighbors. Pt is AOx4, noted with bilateral AKA and prosthetics. Pt is continent of both bladder and bm. Per pt he had latest surgery last dec 15, 2018, on bilateral RT and LT knee d/t infection, noted post-surgical site, clean with very few clear-like fluid drainage, Dr. Hoyos aware. Pt denies pain nor any discomfort right now. VSS, on RA. will continue to monitor.
[2019-06-04 10:20] VITALS: BP 139/78
--- NOTE | 2019-06-04 10:30 | Emergency Room Report ---
History of Present Illness General Chief Complaint: General Complaint Source: Patient Present Illness HPI Presents with 5 days of dysuria and hematuria with dysuria. Believes he has a urinary tract infection. (Sometimes claims 3 days.) He has lost his appetite. He has some generalized weakness. He has felt chills but denied fever. The pain is rated 3/10 with urination. He also has pain in his stump treated 5-8/ 10. Apparently takes Dilaudid at home. This helped with the pain recently. There is no nausea, vomiting or diarrhea. He is never had symptoms like this. His wound care doctor suggested he come to the emergency department for evaluation. He also complains of diffuse back pain. He also has recently had surgical revision of his right AKA. He has been told he has bone cancer in his right leg and the bone has to be removed. He feels the right stump is been hot to touch. He denies any drainage. He also has some drainage from his left eye. 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 She feels he is unable to care for himself at home. No sore throat, chest pain, palpitations, shortness of breath, depression, anxiety, visual changes, dizziness, headache. Allergies: Coded Allergies: No Known Allergies (Unverified , 01/04/17) Patient History Past Medical History: see triage record, other - Melanoma and basal cell Past Surgical History: other - AKA bilaterally Social History: Denies: smoking Social History Narrative Lives by himself, was in the [place] Reviewed Nursing Documentation: PMH: Agreed; PSxH: Agreed Nursing Documentation-PM Past Medical History: No Stated History Hx Neurological Problems: No Review of Systems All Other Systems: negative except mentioned in HPI Physical Exam Vital Signs Date Time Temp Pulse Resp B/P (MAP) Pulse Ox O2 Delivery O2 Flow Rate FiO2 06/04/19 10:04 98.8 98 17 139/78 (98) 97 Room Air Sp02 EP Interpretation: reviewed, normal General Appearance: no apparent distress, GCS 15, other - Slightly disheveled, Chronically Ill Head: normocephalic Eyes: left eye Scleral Injection - With green discharge and lid changes; bilateral eye PERRL ENT: moist mucus membranes - Poor dentition Neck: full range of motion, supple Respiratory: lungs clear, normal breath sounds Cardiovascular #1: regular rate, rhythm Cardiovascular #2: 2+ radial (R) Gastrointestinal: normal inspection, normal bowel sounds, non tender, no mass, non-distended Genitourinary: no CVA tenderness - But lumbar tenderness, penis normal Musculoskeletal: normal range of motion, tender - Lower extremities Neurologic: alert, oriented x3 Medical Decision Making Diagnostic Impression: Primary Impression: UTI (urinary tract infection) Qualified Codes: N39.0 - Urinary tract infection, site not specified Additional Impressions: Dehydration Hypomagnesemia S/P BKA (below knee amputation) bilateral Chronic wound of extremity ER Course Patient presents with dysuria and anorexia developing over 5 days. In addition he has chronic wounds on his AKA stumps that he feels might be infected. Differential includes acute myocardial infarction, sepsis, urinary tract infection, pyelonephritis, right stump infection, chronic skin ulcer, electrolyte imbalance amongst others. Patient evaluated with EKG, chest x-ray, right femur x-ray and labs. Patient treated with IV hydration. EKG without injury. Chest x-ray no infiltrate. Right femur with surgical changes and soft tissue defects no obvious osteomyelitis. Labs with white count upper limit of normal. BUN elevated. Pyuria. ESR markedly elevated. Magnesium low. Antibiotics begun. IV hydration begun. Analgesia given. Contact Dr. Roldan requested admit to on-call physician. Patient improved with treatment. visitor services associate consult initiated. Laboratory Tests Test 06/04/19 10:45 White Blood Count 10.4 K/UL (4.8-10.8) Red Blood Count 3.47 M/UL (4.70-6.10) L Hemoglobin 11.3 G/DL (14.2-18.0) L Hematocrit 31.8 % (42.0-52.0) L Mean Corpuscular Volume 92 FL (80-99) Mean Corpuscular Hemoglobin 32.5 PG (27.0-31.0) H Mean Corpuscular Hemoglobin Concent 35.4 G/DL (32.0-36.0) Red Cell Distribution Width 13.3 % (11.6-14.8) Platelet Count 200 K/UL (150-450) Mean Platelet Volume 6.4 FL (6.5-10.1) L Neutrophils (%) (Auto) 70.1 % (45.0-75.0) Lymphocytes (%) (Auto) 19.2 % (20.0-45.0) L Monocytes (%) (Auto) 7.3 % (1.0-10.0) Eosinophils (%) (Auto) 2.8 % (0.0-3.0) Basophils (%) (Auto) 0.7 % (0.0-2.0) Erythrocyte Sedimentation Rate 113 MM/HR (0-20) H Prothrombin Time 9.9 SEC (9.30-11.50) Prothrombin Time INR 0.9 (0.9-1.1) Activated Partial Thromboplast Time 29 SEC (23-33) Urine Color Yellow Urine Appearance Slightly cloudy Urine pH 5 (4.5-8.0) Urine Specific [place] 1.010 (1.005-1.035) Urine Protein 3+ (NEGATIVE) H Urine Glucose (UA) Negative (NEGATIVE) Urine Ketones Negative (NEGATIVE) Urine Blood 5+ (NEGATIVE) H Urine Nitrite Positive (NEGATIVE) H Urine Bilirubin Negative (NEGATIVE) Urine Urobilinogen Normal MG/DL (0.0-1.0) Urine Leukocyte Esterase 3+ (NEGATIVE) H Urine RBC 5-10 /HPF (0 - 0) H Urine WBC 60-80 /HPF (0 - 0) H Urine Squamous Epithelial Cells Occasional /LPF Urine Bacteria Many /HPF (NONE) H Sodium Level 144 MMOL/L (136-145) Potassium Level 4.3 MMOL/L (3.5-5.1) Chloride Level 107 MMOL/L (98-107) Carbon Dioxide Level 24 MMOL/L (21-32) Anion Gap 13 mmol/L (5-15) Blood Urea Nitrogen 23 mg/dL (7-18) H Creatinine 1.0 MG/DL (0.55-1.30) Estimate Glomerular Filtration Rate > 60 mL/min (>60) Glucose Level 95 MG/DL (74-106) Lactic Acid Level 1.00 mmol/L (0.4-2.0) Calcium Level 9.0 MG/DL (8.5-10.1) Magnesium Level 1.7 MG/DL (1.8-2.4) L Total Bilirubin 0.5 MG/DL (0.2-1.0) Aspartate Amino Transferase (AST) 33 U/L (15-37) Alanine Aminotransferase (ALT) 26 U/L (12-78) Alkaline Phosphatase 78 U/L (46-116) Total Creatine Kinase 61 U/L (26-308) Troponin I 0.000 ng/mL (0.000-0.056) Pro-B-Type Natriuretic Peptide 315 pg/mL (0-125) H Total Protein 7.2 G/DL (6.4-8.2) Albumin 2.8 G/DL (3.4-5.0) L Globulin 4.4 g/dL Albumin/Globulin Ratio 0.6 (1.0-2.7) L Lipase 89 U/L (73-393) EKG Diagnostic Results Rate: normal Rhythm: NSR ST Segments: no acute changes Rhythm Strip Diag. Results EP Interpretation: yes Rhythm: NSR, no PVC's, no ectopy Chest X-Ray Diagnostic Results Chest X-Ray Diagnostic Results : Chest X-Ray Ordered: Yes # of Views/Limited/Complete: 1 View Indication: Other EP Interpretation: Yes Interpretation: no consolidation, no effusion, no pneumothorax Impression: No acute disease Electronically Signed by: Electronically signed by Emeka Hoyos MD Other X-Ray Diagnostic Results Other X-Ray Diagnostic Results : X-Ray ordered: Right femur # of Views/Limited Vs Complete: Complete Indication: Other EP Interpretation: Yes Interpretation: no dislocation, no fractures, other - Soft tissue defects and surgical changes AKA area no evidence of osteomyelitis Impression: Other Electronically Signed by: Electronically signed by Emeka Hoyos MD Last Vital Signs Date Time Temp Pulse Resp B/P (MAP) Pulse Ox O2 Delivery O2 Flow Rate FiO2 06/04/19 21:19 103/51 (68) 06/04/19 21:15 Room Air 06/04/19 20:26 81 20 94 21 06/04/19 20:06 98.3 Status: improved Disposition: ADMITTED INPATIENT Condition: Serious Emeka Hoyos MD Jun 04, 2019 10:30
--- NOTE | 2019-06-04 10:52 | NUR ---
ED Nurse Note: X-ray at bedside.
[2019-06-04 11:07] LABS: BILIRUBIN, URINE NEGATIVE (NEGATIVE); GLUCOSE, URINE (UA) NEGATIVE (NEGATIVE); KETONES,URINE NEGATIVE (NEGATIVE); LEUKOCYTE ESTERASE ,URINE 3+ (NEGATIVE); NITRITE,URINE POSITIVE (NEGATIVE); PH,URINE 5 (4.5-8.0); PROTEIN,URINE 3+ (NEGATIVE); UROBILINOGEN,URINE NORMAL MG/DL (0.0-1.0)
[2019-06-04 11:10] LABS: INR 0.9 (0.9-1.1)
[2019-06-04 11:11] LABS: BASOPHILS % (AUTO) 0.7 % (0.0-2.0); EOSINOPHILS % (AUTO) 2.8 % (0.0-3.0); HEMATOCRIT 31.8 % (42.0-52.0); HEMOGLOBIN 11.3 G/DL (14.2-18.0); LYMPHOCYTES % (AUTO) 19.2 % (20.0-45.0); MEAN CORPUSCULAR VOLUME 92 FL (80-99); MONOCYTES % (AUTO) 7.3 % (1.0-10.0); NEUTROPHILS % (AUTO) 70.1 % (45.0-75.0); PLATELET COUNT 200 K/UL (150-450); RED BLOOD COUNT 3.47 M/UL (4.70-6.10); RED CELL DISTRIBUTION WIDTH 13.3 % (11.6-14.8); WHITE BLOOD COUNT 10.4 K/UL (4.8-10.8)
[2019-06-04 11:15] LABS: APPEARANCE,URINE SLIGHTLY CLOUDY; COLOR,URINE YELLOW
[2019-06-04 11:19] LABS: ANION GAP 13 mmol/L (5-15); BLOOD UREA NITROGEN 23 mg/dL (7-18); CARBON DIOXIDE 24 MMOL/L (21-32); CHLORIDE 107 MMOL/L (98-107); POTASSIUM 4.3 MMOL/L (3.5-5.1); SODIUM 144 MMOL/L (136-145)
[2019-06-04 11:29] LABS: ALANINE AMINOTRANSFERASE 26 U/L (12-78); ALBUMIN 2.8 G/DL (3.4-5.0); ALBUMIN/GLOBULIN RATIO 0.6 (1.0-2.7); ALKALINE PHOSPHATASE 78 U/L (46-116); ASPARTATE AMINO TRANSFERASE 33 U/L (15-37); BILIRUBIN,TOTAL 0.5 MG/DL (0.2-1.0); CREATINE KINASE 61 U/L (26-308)
[2019-06-04 11:35] VITALS: BP 113/86
[2019-06-04] MEDS ORDERED: MIRTAZAPINE15 MG ORAL (12:14)
--- NOTE | 2019-06-04 12:28 | Diagnostic Imaging Report ---
Indication: Right thigh Pain Findings: 2 views of the right femur were obtained. Patient has had bowel below the knee amputation. The area of the stump shows a focus of skin ulceration at the apex. The underlying stump shows no definite evidence of erosion or soft tissue air. The bones are osteopenic. The shaft of the femur appears abnormal with areas of mottled lucency and possible periostitis. Please correlate clinically. Vascular calcifications are present. Bones are osteopenic. IMPRESSION: Ill-defined mottled appearance involving the mid shaft of the femur. Consider chronic osteomyelitis. Infiltrative disease/tumor or aggressive osteoporosis may also be considered. Consider further evaluation if warranted clinically. Status post below the knee amputation. Stump cellulitis and ulceration may be present. No plain film evidence for acute osteomyelitis.
--- NOTE | 2019-06-04 12:29 | Diagnostic Imaging Report ---
Indication: Dyspnea Comparison: 12/15/2017 A single view chest radiograph was obtained. Findings: No definite infiltrate or pulmonary vascular congestion identified. There is mild basilar increased density which may be atelectasis. Lung volumes are low. The heart is enlarged. The aorta is mildly enlarged consistent with atherosclerotic vascular disease. The bones are osteopenic. There are thoracic vertebral enthesophytes at multiple levels. Impression: No acute disease
[2019-06-04] MEDS ORDERED: cefTRIAXone 1 GM in NS 55 ML IVPB ONE (12:30)
[2019-06-04 13:43] VITALS: BP 104/62
[2019-06-04] MEDS ORDERED: Hydromorphone 0.5mg/0.5ml inj IVP ONE (14:00)
--- NOTE | 2019-06-04 15:25 | NUR ---
TRANSFER TO FLOOR: Patient transferred to [facility] Unit as ordered, per Dr. Deleon. Report given to Polo BOYCE. Belongings and medications given to receiving nurse. Family and or S/O informed of transfer.
--- NOTE | 2019-06-04 15:28 | NUR ---
Social Work This Sw received a consult for a home safety evaluation. This SW met with patient in the ED who explains he lives alone, has been independent with ADLs and ambulation (with walker), BKA with prosthesis for both legs. Patient does not have any family, while stating he is own decision maker, currently requesting DNR/DNI (nursing in ED informed). Patient explains he does have a friend, Negar Odell ([phone]) who should be contacted for any decision maker, as needed. Patient explains he has been in several different nursing homes in the past for rehab, as needed. Pending progress here. Patient receives $2,000.00 in SSDI per month and can hire additional caregivers, as needed (his rent is $450.00). Patient believes he can manage on his own, while he has a camp housekeeper, Dixie who assists him with cleaning and grocery shopping. Patient does not drive, lives in an apartment with an elevator and appears well-groomed (does not present with any signs of self-neglect). However, patient has been falling at home (high risks for falls). Patient does not present with any mental health or substance abuse concerns at this time (does not verbalize any SI/SI).
--- NOTE | 2019-06-04 15:50 | NUR ---
NURSE NOTES: Patient was admitted from ED via [facility]. AAO x 4. No acute distress noted. c/o of pain. IV on LISA 22g intact and patent, with SL. Orientation on new unit given. Belongings were accounted. Prosthetics at the bed side. Pt is high risk for fall for pt has hx of falls at home. Call light within reach and educated pt to press call light for assistance. Side rails x 3. Bed in the lowest, locked, and alarm on. Call light within reach. Will continue to monitor.
[2019-06-04 16:00] VITALS: BP 123/66
[2019-06-04] MEDS ORDERED: Albuterol/Ipratropium 3ml neb HHN PRN (16:53)
[2019-06-04] MEDS ORDERED: DiphenhydrAMINE 25mg Tab ORAL PRN (16:54)
[2019-06-04] MEDS ORDERED: Morphine Sulfate 2mg/ml Inj(IV/IM USE ONLY) IVP PRN ×2 (16:55→18:00)
--- NOTE | 2019-06-04 17:59 | History and Physical ---
History of Present Illness General Date patient seen: Jun 04, 2019 Time patient seen: 17:30 Reason for Hospitalization: urinary frequency, dysuria Present Illness HPI mr. siegel is a 83 year old male with hx of melanoma in remission, s/p bilateral BKA, presenting with ~3 days of urinary symptoms, urinary frequency, dysuria and hematuria. He also reports prior symptoms of BPH, such as difficulty starting and ending urinary stream. He deneis any fever, chils, SOB, chest pain , n/v, abdominal pain. He lives by himself, has a hired caregiver, and gets to his MD appointments (wound clinic for his b/l BKA), by donning his prosthetics and calling cab. He was advised to use wheelchair but prefers the above. He was at his weekly appointment this morning and was advised to go to the ED for evaluation. Allergies: Coded Allergies: No Known Allergies (Unverified , 01/04/17) Medication History Scheduled Levofloxacin* (Levaquin*), 250 MG ORAL DAILY, (Reported) Levothyroxine Sodium* (Synthroid*), 200 MCG ORAL DAILY, (Reported) Mirtazapine* (Remeron*), 15 MG ORAL BEDTIME, (Reported) Omeprazole (Omeprazole), 40 MG ORAL DAILY, (Reported) Sennosides (Senna Laxative), 17.2 MG PO BEDTIME, (Reported) Temazepam (Restoril*), 45 MG ORAL BEDTIME, (Reported) Trimethoprim/Sulfamethoxazole 160/800* (Bactrim Ds Tablet*), 1 TAB ORAL TWICE A DAY, (Reported) Vancomycin/Water For Inj (Vancomycin 1.5 Gram/300 ml Bag), 1.5 GM IV DAILY, ( Reported) Scheduled PRN Acetaminophen* (Acetaminophen 325MG Tablet*), 650 MG ORAL Q4H PRN for Mild Pain/ Temp > 100.5, (Reported) Acetaminophen* (Acetaminophen Extra Strength*), 500 MG ORAL Q8HR PRN for For Pain, (Reported) Bisacodyl (Bisacodyl), 10 MG RC DAILY PRN for Constipation, (Reported) Hydromorphone HCl/Pf (Dilaudid 2 mg/ml Syringe), 2 MG IJ EVERY 3 HOURS PRN for Severe Pain (Pain Scale 7-10), (Reported) Magnesium Hydroxide* (Milk Of Magnesia*), 30 ML ORAL DAILY PRN for Constipation, (Reported) [Mylanta Ds Liq], 10 ML PO Q4HR PRN for INDIGESTION, (Reported) Patient History Healthcare decision maker Resuscitation status Do Not Resuscitate Advanced Directive on File Review of Systems Constitutional: Denies: no symptoms, see HPI, chills, sweats, fever, malaise, weakness, other Eye: Denies: no symptoms, see HPI, eye pain, blurred vision, tearing, double vision, nose pain, nose congestion, acuity changes, discharge, other ENT: Denies: no symptoms, see HPI, ear pain, ear discharge, nose pain, nose congestion, throat pain, throat swelling, mouth pain, hearing loss, nasal discharge, other Respiratory: Denies: no symptoms, see HPI, cough, orthopnea, shortness of breath, stridor, wheezing, SMITH, sputum, other Cardiovascular: Denies: no symptoms, see HPI, chest pain, edema, palpitations, syncope, PND, other Gastrointestinal: Denies: no symptoms, see HPI, abdominal pain, constipation, diarrhea, nausea, vomiting, melena, hematemesis, other Genitourinary: Reports: dysuria, frequency, hematuria Musculoskeletal: Denies: no symptoms, see HPI, back pain, gout, joint pain, joint swelling, muscle pain, muscle stiffness, other Skin: Denies: no symptoms, see HPI, rash, change in color, change in hair/nails , dryness, lesions, other Psychiatric: Denies: no symptoms, see HPI, prior hx, anxiety, depressed feelings, emotional problems, SI, HI, hallucinations, other Neurological: Denies: no symptoms, see HPI, headache, numbness, paresthesia, seizure, tingling, tremors, focal weakness, syncope, dizziness, other Endocrine: Denies: no symptoms, see HPI, excessive sweating, flushing, intolerance to temperature, increased thirst, increased urine, unexplained weight loss, other Hematologic/Lymphatic: Denies: no symptoms, see HPI, anemia, blood clots, easy bleeding, easy bruising, swollen glands, diathesis, other Physical Exam General Appearance: no apparent distress, alert HEENT: normocephalic, atraumatic Neck: supple Respiratory/Chest: lungs clear, normal breath sounds, no respiratory distress Cardiovascular/Chest: normal rate, regular rhythm Abdomen: non tender, soft Extremities: no edema Neurologic: alert, oriented x 3 Last 24 Hour Vital Signs Date Time Temp Pulse Resp B/P (MAP) Pulse Ox O2 Delivery O2 Flow Rate FiO2 06/04/19 16:00 98.3 83 20 123/66 (85) 97 06/04/19 15:54 Room Air 06/04/19 13:43 98.8 80 15 104/62 99 Room Air 06/04/19 11:35 98.8 83 14 113/86 99 Room Air 06/04/19 10:20 98.8 17 139/78 97 Room Air 06/04/19 10:20 98 17 Room Air 06/04/19 10:04 98.8 98 17 139/78 (98) 97 Room Air Laboratory Tests Test 06/04/19 10:45 White Blood Count 10.4 K/UL (4.8-10.8) Red Blood Count 3.47 M/UL (4.70-6.10) L Hemoglobin 11.3 G/DL (14.2-18.0) L Hematocrit 31.8 % (42.0-52.0) L Mean Corpuscular Volume 92 FL (80-99) Mean Corpuscular Hemoglobin 32.5 PG (27.0-31.0) H Mean Corpuscular Hemoglobin Concent 35.4 G/DL (32.0-36.0) Red Cell Distribution Width 13.3 % (11.6-14.8) Platelet Count 200 K/UL (150-450) Mean Platelet Volume 6.4 FL (6.5-10.1) L Neutrophils (%) (Auto) 70.1 % (45.0-75.0) Lymphocytes (%) (Auto) 19.2 % (20.0-45.0) L Monocytes (%) (Auto) 7.3 % (1.0-10.0) Eosinophils (%) (Auto) 2.8 % (0.0-3.0) Basophils (%) (Auto) 0.7 % (0.0-2.0) Erythrocyte Sedimentation Rate 113 MM/HR (0-20) H Prothrombin Time 9.9 SEC (9.30-11.50) Prothromb Time International Ratio 0.9 (0.9-1.1) Activated Partial Thromboplast Time 29 SEC (23-33) Urine Color Yellow Urine Appearance Slightly cloudy Urine pH 5 (4.5-8.0) Urine Specific [place] 1.010 (1.005-1.035) Urine Protein 3+ (NEGATIVE) H Urine Glucose (UA) Negative (NEGATIVE) Urine Ketones Negative (NEGATIVE) Urine Blood 5+ (NEGATIVE) H Urine Nitrite Positive (NEGATIVE) H Urine Bilirubin Negative (NEGATIVE) Urine Urobilinogen Normal MG/DL (0.0-1.0) Urine Leukocyte Esterase 3+ (NEGATIVE) H Urine RBC 5-10 /HPF (0 - 0) H Urine WBC 60-80 /HPF (0 - 0) H Urine Squamous Epithelial Cells Occasional /LPF Urine Bacteria Many /HPF (NONE) H Sodium Level 144 MMOL/L (136-145) Potassium Level 4.3 MMOL/L (3.5-5.1) Chloride Level 107 MMOL/L (98-107) Carbon Dioxide Level 24 MMOL/L (21-32) Anion Gap 13 mmol/L (5-15) Blood Urea Nitrogen 23 mg/dL (7-18) H Creatinine 1.0 MG/DL (0.55-1.30) Estimat Glomerular Filtration Rate > 60 mL/min (>60) Glucose Level 95 MG/DL (74-106) Lactic Acid Level 1.00 mmol/L (0.4-2.0) Calcium Level 9.0 MG/DL (8.5-10.1) Magnesium Level 1.7 MG/DL (1.8-2.4) L Total Bilirubin 0.5 MG/DL (0.2-1.0) Aspartate Amino Transf (AST/SGOT) 33 U/L (15-37) Alanine Aminotransferase (ALT/SGPT) 26 U/L (12-78) Alkaline Phosphatase 78 U/L (46-116) Total Creatine Kinase 61 U/L (26-308) Troponin I 0.000 ng/mL (0.000-0.056) Pro-B-Type Natriuretic Peptide 315 pg/mL (0-125) H Total Protein 7.2 G/DL (6.4-8.2) Albumin 2.8 G/DL (3.4-5.0) L Globulin 4.4 g/dL Albumin/Globulin Ratio 0.6 (1.0-2.7) L Lipase 89 U/L (73-393) Height (Feet): 5 Height (Inches): 5.00 Weight (Pounds): 164 Medications Current Medications Medications (Trade) Dose Ordered Sig/Trever Route PRN Reason Start Time Stop Time Status Last Admin Dose Admin Acetaminophen (Tylenol) 650 mg Q4H PRN ORAL fever 06/04/19 16:55 07/04/19 16:54 Acetaminophen (Tylenol) 650 mg Q4H PRN ORAL Mild Pain (Pain Scale 1-3) 06/04/19 16:56 07/04/19 16:55 Albuterol/ Ipratropium (Albuterol/ Ipratropium) 3 ml Q4H PRN HHN Shortness of Breath 06/04/19 16:53 06/09/19 16:52 Bisacodyl (Dulcolax) 10 mg HSPRN PRN RECTAL Constipation 06/04/19 21:00 07/04/19 20:59 Ceftriaxone Sodium 1 gm/ Dextrose 55 ml @ 110 mls/hr Q24H IVPB 06/05/19 12:00 06/12/19 11:59 Dextrose (Dextrose 50%) 25 ml Q30M PRN IV Hypoglycemia 06/04/19 16:55 07/04/19 16:54 Dextrose (Dextrose 50%) 50 ml Q30M PRN IV Hypoglycemia 06/04/19 16:55 07/04/19 16:54 Diphenhydramine HCl (Benadryl) 25 mg Q6H PRN ORAL Itching/Pruritis 06/04/19 16:54 07/04/19 16:53 Docusate Sodium (Colace) 100 mg EVERY 12 HOURS ORAL 06/04/19 21:00 07/04/19 20:59 Heparin Sodium (Porcine) (Heparin 5000 units/ml) 5,000 units EVERY 12 HOURS SUBQ 06/04/19 21:00 07/04/19 20:59 Levothyroxine Sodium (Synthroid) 200 mcg DAILY@0630 ORAL 06/05/19 06:30 07/05/19 06:29 Mirtazapine (Remeron) 15 mg BEDTIME ORAL 06/04/19 21:00 07/04/19 20:59 Morphine Sulfate (Morphine Sulfate) 1 mg Q4H PRN IVP Severe Pain (Pain Scale 7-10) 06/04/19 16:55 06/11/19 16:54 Ondansetron HCl (Zofran) 4 mg Q6H PRN IVP Nausea & Vomiting 06/04/19 16:54 07/04/19 16:53 Sennosides (Senokot) 17.2 mg BEDTIME ORAL 06/04/19 21:00 07/04/19 20:59 Assessment/Plan Problem List: (1) Leg pain ICD Codes: M79.606 - Leg pain SNOMED: 27518535 (2) Hypothyroid ICD Codes: E03.9 - Hypothyroid SNOMED: 78345047 (3) UTI (urinary tract infection) ICD Codes: N39.0 - Urinary tract infection, site not specified SNOMED: 64053819, 07297808, 86312441, 151504177 (4) Hypomagnesemia ICD Codes: E83.42 - Hypomagnesemia SNOMED: 243297441, 50146910, 11035034, 053278352 (5) Chronic wound of extremity SNOMED: 058749097, 04669252, 961751982 Status: doing well, stable Assessment/Plan: #Dysuria #Hematuria #Acute UTI #Suspected BPH -Admit to inpatient. -Continue empiric abx (Ceftraixone 06/03 -) -UA + for UTI, f/u urine culture. -Plastic surgery (Dr. Roldan) messaged. Appreciate assistance. -ID consult placed. -Dilaudid for pain. -Start flomax 0.4 mg qhs, for probable BPH. #hx of bilateral BKA -Wound care. -Continue weekly wound care clinic f/u on Mondays outpatient. #Insomnia -continue qhs home meds (mirtazapine, remeron). #Hypothyroidism -Continue home synthroid. #Dispo -Order home health upon discharge. Patient agreeable to getting help at home. #DNAR status -noted. Extra 38 minutes spent on chart review of pertienent patient information, including labs, vitals, imaging and medications, as well as prior physician/ speech correction consultant documentation. Time of note does not relfect time of encounter. Barb Coreas M.D. Jun 04, 2019 17:59
[2019-06-04] MEDS: HYDROmorphone 1mg/ml Carpuject IVP PRN ×2 (18:16→22:14)
--- NOTE | 2019-06-04 19:11 | NUR ---
HAND-OFF: Report given to AUSTEN Wilson. Endorse plan of care and informed about pt's high fall risk
--- NOTE | 2019-06-04 19:17 | NUR ---
Note steph in EDM - 06/04/19 at 1918 by SYLVAIN TRANSFER TO FLOOR: Patient transferred to [facility] Unit as ordered, per Dr. Deleon. Report given to Polo BOYCE. Belongings and medications given to receiving nurse. Family and or S/O informed of transfer.
--- NOTE | 2019-06-04 20:00 | NUR ---
NURSE NOTES: Received patient awake, alert, verbal, resting in bed comfortably watching television.
[2019-06-04 20:06] VITALS: BP 98/48
[2019-06-04] MEDS: Heparin 5000 units/ml inj SUBQ SCH (21:00)
[2019-06-04 21:19] VITALS: BP 103/51
[2019-06-04] MEDS: Sennosides 8.6mg tab ORAL SCH (22:12)
[2019-06-04] MEDS: Docusate 100mg cap ORAL SCH (22:13)
[2019-06-04] MEDS: Tamsulosin 0.4mg cap ORAL SCH (22:13)
[2019-06-05] VITALS (8 sets, daily range): BP systolic 87–129; BP diastolic 49–90
[2019-06-05] MEDS: HYDROmorphone 1mg/ml Carpuject IVP PRN ×4 (03:19→22:13)
[2019-06-05 06:39] LABS: ALANINE AMINOTRANSFERASE 21 U/L (12-78); ALBUMIN 2.3 G/DL (3.4-5.0); ALBUMIN/GLOBULIN RATIO 0.6 (1.0-2.7); ALKALINE PHOSPHATASE 68 U/L (46-116); ANION GAP 12 mmol/L (5-15); ASPARTATE AMINO TRANSFERASE 19 U/L (15-37); BILIRUBIN,TOTAL 0.4 MG/DL (0.2-1.0); BLOOD UREA NITROGEN 21 mg/dL (7-18); CALCIUM 8.6 MG/DL (8.5-10.1); CARBON DIOXIDE 23 MMOL/L (21-32); CHLORIDE 109 MMOL/L (98-107); POTASSIUM 4.2 MMOL/L (3.5-5.1); SODIUM 144 MMOL/L (136-145)
--- NOTE | 2019-06-05 07:10 | NUR ---
HAND-OFF: Report given to Brinda Giang RN.
--- NOTE | 2019-06-05 07:38 | NUR ---
NURSE NOTES: Patient alert x4; on room air, no sing of distress and shortness of breath; no sing of chest pain; IV Left -Upper arm 22G, flushes well; Urinal within reach; patient's own prostatics at the bed side; walker at the bed side and within reach; patient Bilateral BKA; side rails up x2, breaks engaged, bed at lowest position; call light within reach; will keep monitoring.
[2019-06-05] MEDS: Docusate 100mg cap ORAL SCH ×3 (08:35→21:00)
[2019-06-05] MEDS: Heparin 5000 units/ml inj SUBQ SCH ×2 (08:37→21:00)
--- NOTE | 2019-06-05 11:44 | NUR ---
NURSE NOTES: Patient's hear rate is 132 BP 105/53; I called Dr Deleon office I left a message with Benson regarding the matter; waiting for MD call and order.
[2019-06-05] MEDS ORDERED: cefTRIAXone 1gm/D5W 55ml IVPB SCH ×2 (12:00)
--- NOTE | 2019-06-05 12:04 | Consultation ---
History of Present Illness General Date patient seen: Jun 05, 2019 Time patient seen: 11:58 Chief Complaint: General Complaint Present Illness HPI Patient is a 83 year old male with hx of melanoma in remission, s/p bilateral BKA, presenting with ~3 days of urinary symptoms, urinary frequency, dysuria and hematuria. Cardiology consulted for tachycardia and ectopy. NO chest pain. Allergies: Coded Allergies: No Known Allergies (Unverified , 01/04/17) Medication History Scheduled Levofloxacin* (Levaquin*), 250 MG ORAL DAILY, (Reported) Levothyroxine Sodium* (Synthroid*), 200 MCG ORAL DAILY, (Reported) Mirtazapine* (Remeron*), 15 MG ORAL BEDTIME, (Reported) Omeprazole (Omeprazole), 40 MG ORAL DAILY, (Reported) Sennosides (Senna Laxative), 17.2 MG PO BEDTIME, (Reported) Temazepam (Restoril*), 45 MG ORAL BEDTIME, (Reported) Trimethoprim/Sulfamethoxazole 160/800* (Bactrim Ds Tablet*), 1 TAB ORAL TWICE A DAY, (Reported) Vancomycin/Water For Inj (Vancomycin 1.5 Gram/300 ml Bag), 1.5 GM IV DAILY, ( Reported) Scheduled PRN Acetaminophen* (Acetaminophen 325MG Tablet*), 650 MG ORAL Q4H PRN for Mild Pain/ Temp > 100.5, (Reported) Acetaminophen* (Acetaminophen Extra Strength*), 500 MG ORAL Q8HR PRN for For Pain, (Reported) Bisacodyl (Bisacodyl), 10 MG RC DAILY PRN for Constipation, (Reported) Hydromorphone HCl/Pf (Dilaudid 2 mg/ml Syringe), 2 MG IJ EVERY 3 HOURS PRN for Severe Pain (Pain Scale 7-10), (Reported) Magnesium Hydroxide* (Milk Of Magnesia*), 30 ML ORAL DAILY PRN for Constipation, (Reported) [Mylanta Ds Liq], 10 ML PO Q4HR PRN for INDIGESTION, (Reported) Patient History Healthcare decision maker Resuscitation status Do Not Resuscitate Advanced Directive on File Review of Systems Constitutional: Reports: no symptoms Eye: Reports: no symptoms ENT: Reports: no symptoms Respiratory: Reports: no symptoms Cardiovascular: Reports: palpitations Gastrointestinal: Reports: no symptoms Genitourinary: Reports: dysuria, frequency, hematuria, pain Musculoskeletal: Reports: no symptoms Skin: Reports: no symptoms Psychiatric: Reports: no symptoms Neurological: Reports: no symptoms Endocrine: Reports: no symptoms Hematologic/Lymphatic: Reports: no symptoms Physical Exam General Appearance: no apparent distress, alert Lines, tubes and drains: peripheral HEENT: normocephalic, atraumatic Neck: non-tender, normal alignment, supple, normal inspection Respiratory/Chest: chest wall non-tender, lungs clear, normal breath sounds Cardiovascular/Chest: normal peripheral pulses, regular rhythm, tachycardia Abdomen: normal bowel sounds, non tender, soft, no organomegaly, no mass Extremities: normal range of motion, non-tender, normal inspection, no calf tenderness, normal capillary refill, non-pitting 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, no motor/sensory deficits Last 24 Hour Vital Signs Date Time Temp Pulse Resp B/P (MAP) Pulse Ox O2 Delivery O2 Flow Rate FiO2 06/05/19 09:08 98.2 06/05/19 09:00 Room Air 06/05/19 08:00 98.2 86 17 115/68 (84) 99 06/05/19 07:32 78 17 95 Room Air 21 06/05/19 04:34 98.0 80 18 118/64 (82) 95 06/05/19 00:21 98.0 82 17 129/90 (103) 94 06/04/19 21:19 103/51 (68) 06/04/19 21:15 Room Air 06/04/19 20:26 81 20 94 Room Air 21 06/04/19 20:06 98.3 79 17 98/48 (65) 91 06/04/19 16:00 98.3 83 20 123/66 (85) 97 06/04/19 15:54 Room Air 06/04/19 15:25 98.8 80 15 104/62 99 Room Air 06/04/19 13:43 98.8 80 15 104/62 99 Room Air Intake and Output 06/04/19 06/05/19 19:00 07:00 Intake Total 360 ml Balance 360 ml Intake Oral 360 ml # Voids 1 4 Laboratory Tests Test 06/05/19 05:40 Sodium Level 144 MMOL/L (136-145) Potassium Level 4.2 MMOL/L (3.5-5.1) Chloride Level 109 MMOL/L (98-107) H Carbon Dioxide Level 23 MMOL/L (21-32) Anion Gap 12 mmol/L (5-15) Blood Urea Nitrogen 21 mg/dL (7-18) H Creatinine 1.0 MG/DL (0.55-1.30) Estimat Glomerular Filtration Rate > 60 mL/min (>60) Glucose Level 90 MG/DL (74-106) Calcium Level 8.6 MG/DL (8.5-10.1) Total Bilirubin 0.4 MG/DL (0.2-1.0) Aspartate Amino Transf (AST/SGOT) 19 U/L (15-37) Alanine Aminotransferase (ALT/SGPT) 21 U/L (12-78) Alkaline Phosphatase 68 U/L (46-116) Total Protein 6.3 G/DL (6.4-8.2) L Albumin 2.3 G/DL (3.4-5.0) L Globulin 4.0 g/dL Albumin/Globulin Ratio 0.6 (1.0-2.7) L Height (Feet): 5 Height (Inches): 5.00 Weight (Pounds): 164 Medications Current Medications Medications (Trade) Dose Ordered Sig/Trever Route PRN Reason Start Time Stop Time Status Last Admin Dose Admin Acetaminophen (Tylenol) 650 mg Q4H PRN ORAL fever 06/04/19 16:55 07/04/19 16:54 Acetaminophen (Tylenol) 650 mg Q4H PRN ORAL Mild Pain (Pain Scale 1-3) 06/04/19 16:56 07/04/19 16:55 Albuterol/ Ipratropium (Albuterol/ Ipratropium) 3 ml Q4H PRN HHN Shortness of Breath 06/04/19 16:53 06/09/19 16:52 Bisacodyl (Dulcolax) 10 mg HSPRN PRN RECTAL Constipation 06/04/19 21:00 07/04/19 20:59 Ceftriaxone Sodium 1 gm/ Dextrose 55 ml @ 110 mls/hr Q24H IVPB 06/05/19 12:00 06/12/19 11:59 Dextrose (Dextrose 50%) 25 ml Q30M PRN IV Hypoglycemia 06/04/19 16:55 07/04/19 16:54 Dextrose (Dextrose 50%) 50 ml Q30M PRN IV Hypoglycemia 06/04/19 16:55 07/04/19 16:54 Diphenhydramine HCl (Benadryl) 25 mg Q6H PRN ORAL Itching/Pruritis 06/04/19 16:54 07/04/19 16:53 Docusate Sodium (Colace) 100 mg EVERY 12 HOURS ORAL 06/04/19 21:00 07/04/19 20:59 06/04/19 22:13 Heparin Sodium (Porcine) (Heparin 5000 units/ml) 5,000 units EVERY 12 HOURS SUBQ 06/04/19 21:00 07/04/19 20:59 06/05/19 08:37 Hydromorphone HCl (Dilaudid) 1 mg Q4H PRN IVP For Severe Pain 7-10 06/04/19 17:56 06/11/19 17:55 06/05/19 08:38 Levothyroxine Sodium (Synthroid) 200 mcg DAILY@0630 ORAL 06/05/19 06:30 07/05/19 06:29 06/05/19 05:44 Mirtazapine (Remeron) 15 mg BEDTIME ORAL 06/04/19 21:00 07/04/19 20:59 06/04/19 22:13 Morphine Sulfate (Morphine Sulfate) 1 mg Q4H PRN IVP Moderat Pain (Pain Scale 4-6) 06/04/19 18:00 06/11/19 16:54 Ondansetron HCl (Zofran) 4 mg Q6H PRN IVP Nausea & Vomiting 06/04/19 16:54 07/04/19 16:53 Sennosides (Senokot) 17.2 mg BEDTIME ORAL 06/04/19 21:00 07/04/19 20:59 06/04/19 22:12 Sodium Chloride 1,000 ml @ 75 mls/hr [id number] IV 06/05/19 12:00 07/05/19 11:59 UNV Tamsulosin HCl (Flomax) 0.4 mg BEDTIME ORAL 06/04/19 21:00 07/04/19 20:59 06/04/19 22:13 Temazepam (RestoriL) 7.5 mg QHS PRN ORAL Insomnia 06/04/19 21:00 06/11/19 20:59 06/04/19 22:12 Assessment/Plan Status: stable Assessment/Plan: Assessment/Plan Problem List: (1) Leg pain (2) Hypothyroid (3) UTI (urinary tract infection) (4) Hypomagnesemia (5) Chronic wound of extremity (6) Tachycardia/Ectopy/PVCs -IV fluids -Echocardiogram -Check D dimer -IV abx per ID/Urology -Check thyroid function studies -continue telemetry -Hold beta blockers etc Emeka Grace MD Jun 05, 2019 12:04
--- NOTE | 2019-06-05 12:04 | NUR ---
NURSE NOTES: MD Coreas called back and give stat EKG; after the order placed cardiology called back and said they wont do the stat EKG now, they are doing stress test with other patient; charge nurseAngelita is aware.
--- NOTE | 2019-06-05 12:16 | NUR ---
CASE MANAGEMENT:REVIEW 83 YR OLD MALE PRESENTED TO ER CC; GENERAL COMPLAINTS PMH: BILATERAL AKA W/PROSTHETICS SI: UTI. DEHYDRATION. HYPOMAGNESEMIA 98.7 98 17 139/78 97% ON RA ESR+113 BUN+23 MAG-1.7 IS: 1L NS BOLUS IV ROCEPHIN IV DILAUDID CHEST XRAY RT FEMUR XRAY : TO MED/SURG [facility] DCP: RETURN HOME
--- NOTE | 2019-06-05 12:27 | NUR ---
CHARGE NURSe NOTE: BP 105/53, HR 127. Temp.102.3F. RR 22. Stat ECG - sinus tachycardia. Spoke with , no new orders given.
--- NOTE | 2019-06-05 12:30 | NUR ---
DISCHARGE PLANNING ORDER NOTED FAXED CLINICALS TO: [facility] T: [phone] F: [phone]
--- NOTE | 2019-06-05 14:11 | General Progress Note ---
Assessment/Plan Problem List: (1) Leg pain ICD Codes: M79.606 - Leg pain SNOMED: 77268331 (2) Hypothyroid ICD Codes: E03.9 - Hypothyroid SNOMED: 99879082 (3) UTI (urinary tract infection) ICD Codes: N39.0 - Urinary tract infection, site not specified SNOMED: 33373497, 48848040, 05759249, [id number] Qualifiers: Qualified Codes: N39.0 - Urinary tract infection, site not specified (4) Hypomagnesemia ICD Codes: E83.42 - Hypomagnesemia SNOMED: 084459460, 25069618, 35736062, 844920047 (5) Chronic wound of extremity SNOMED: 841133860, 64098802, 641522609 Status: stable Assessment/Plan: #Dysuria #Hematuria #Acute UTI #Suspected BPH -Continue empiric abx (Ceftraixone 3/2 -) -UA + for UTI, f/u urine culture. -Plastic surgery (Dr. Roldan) messaged. Appreciate assistance. -ID consult placed. -Dilaudid for pain. -Start flomax 0.4 mg qhs, for probable BPH. #Sinus tachycardia EKG with sinus tachycardia. Likely from infection, dehydration. -IV fluids at 75 mL/hr. -Echocardiogram -Check D dimer -Check thyroid function studies -continue telemetry -Hold beta blockers etc #hx of bilateral BKA -Wound care. -Continue weekly wound care clinic f/u on Mondays outpatient. #Insomnia -continue qhs home meds (mirtazapine, remeron). #Hypothyroidism -Continue home synthroid. #Dispo -Home health to be ordered by CM. d/w with CM. #DNAR status -noted. Time spent on encounter, 37 minutes, >50% on counseling, coordination of care. Time of note does not relfect time of encounter. Subjective Date patient seen: Jun 05, 2019 Time patient seen: 11:30 ROS Limited/Unobtainable: No Constitutional: Denies: no symptoms, chills, diaphoresis, fever, malaise, weakness, other HEENT: Denies: no symptoms, eye pain, blurred vision, tearing, double vision, ear pain, ear discharge, nose pain, nose congestion, throat pain, throat swelling, mouth pain, mouth swelling, other Cardiovascular: Denies: no symptoms, chest pain, edema, irregular heart rate, lightheadedness, palpitations, syncope, other Respiratory: Denies: no symptoms, cough, orthopnea, shortness of breath, SOB with excertion, SOB at rest, sputum, stridor, wheezing, other Gastrointestinal/Abdominal: Denies: no symptoms, abdomen distended, abdominal pain, black stools, tarry stools, blood in stool, constipated, diarrhea, difficulty swallowing, nausea, poor appetite, poor fluid intake, rectal bleeding , vomiting, other Genitourinary: Reports: burning, frequency, pain Neurologic/Psychiatric: Denies: no symptoms, anxiety, depressed, emotional problems, headache, numbness, paresthesia, pre-existing deficit, seizure, tingling, tremors, weakness, other Endocrine: Denies: no symptoms, excessive sweating, flushing, intolerance to cold, intolerance to heat, increased hunger, increased thirst, increased urine, unexplained weight gain, unexplained weight loss, other Hematologic/Lymphatic: Denies: no symptoms, anemia, easy bleeding, easy bruising, other Allergies: Coded Allergies: No Known Allergies (Unverified , 01/04/17) Subjective patient resting in bed, with plascencia in place. moaning. Objective Last 24 Hour Vital Signs Date Time Temp Pulse Resp B/P (MAP) Pulse Ox O2 Delivery O2 Flow Rate FiO2 06/05/19 12:51 100.2 06/05/19 12:23 102.3 06/05/19 09:08 98.2 06/05/19 09:00 Room Air 06/05/19 08:00 98.2 86 17 115/68 (84) 99 06/05/19 07:32 78 17 95 Room Air 21 06/05/19 04:34 98.0 80 18 118/64 (82) 95 06/05/19 00:21 98.0 82 17 129/90 (103) 94 06/04/19 21:19 103/51 (68) 06/04/19 21:15 Room Air 06/04/19 20:26 81 20 94 Room Air 21 06/04/19 20:06 98.3 79 17 98/48 (65) 91 06/04/19 16:00 98.3 83 20 123/66 (85) 97 06/04/19 15:54 Room Air 06/04/19 15:25 98.8 80 15 104/62 99 Room Air Intake and Output 06/04/19 06/05/19 19:00 07:00 Intake Total 360 ml Balance 360 ml Intake Oral 360 ml # Voids 1 4 Laboratory Tests 06/05/19 05:40: Sodium Level 144, Potassium Level 4.2, Chloride Level 109H, Carbon Dioxide Level 23, Anion Gap 12, Blood Urea Nitrogen 21H, Creatinine 1.0, Estimat Glomerular Filtration Rate > 60, Glucose Level 90, Calcium Level 8.6, Total Bilirubin 0.4, Aspartate Amino Transf (AST/SGOT) 19, Alanine Aminotransferase ( ALT/SGPT) 21, Alkaline Phosphatase 68, Total Protein 6.3L, Albumin 2.3L, Globulin 4.0, Albumin/Globulin Ratio 0.6L Height (Feet): 5 Height (Inches): 5.00 Weight (Pounds): 164 General Appearance: no apparent distress, alert Neck: supple Cardiovascular: normal rate, regular rhythm, tachycardia Respiratory/Chest: lungs clear, normal breath sounds Abdomen: non tender, soft Barb Coreas M.D. Jun 05, 2019 14:11
--- NOTE | 2019-06-05 17:57 | NUR ---
NURSE NOTES: Wound care on bilateral BKA provided; patient tolerated well;
--- NOTE | 2019-06-05 18:12 | Infectious Diseases Prog Note ---
Assessment/Plan Assessment/Plan Full consult dictated: A) 1) uti/pyelonephritis 2) fevers, ? sepsis, wbc wnl 3) right leg/stump wound - ? infected, + chronic osteomyelitis on x-ray, elevated sed rate of 113 4) was being seen by plastic surgery as an outpatient 5) pmh noted 6) allergies - nkda P) 1) change to zosyn - fevers on ceftriaxone 2) surgery evaluation of right leg wound - was seen as outpatient by surgery, defer further imaging and wound management per surgery 3) check cultures, monitor labs and temperatures 4) d/w Dr. Coreas 5) thank you Subjective Allergies: Coded Allergies: No Known Allergies (Unverified , 01/04/17) Objective Vital Signs Last 24 Hour Vital Signs Date Time Temp Pulse Resp B/P (MAP) Pulse Ox O2 Delivery O2 Flow Rate FiO2 06/05/19 16:00 99.6 116 20 98/52 (67) 98 06/05/19 12:51 100.2 06/05/19 12:23 102.3 06/05/19 12:00 102.3 132 20 94/54 (67) 98 06/05/19 09:08 98.2 06/05/19 09:00 Room Air 06/05/19 08:00 98.2 86 17 115/68 (84) 99 06/05/19 07:32 78 17 95 Room Air 21 06/05/19 04:34 98.0 80 18 118/64 (82) 95 06/05/19 00:21 98.0 82 17 129/90 (103) 94 06/04/19 21:19 103/51 (68) 06/04/19 21:15 Room Air 06/04/19 20:26 81 20 94 Room Air 21 06/04/19 20:06 98.3 79 17 98/48 (65) 91 Height (Feet): 5 Height (Inches): 5.00 Weight (Pounds): 164 Microbiology Date/Time Source Procedure Growth Status 06/04/19 10:45 Urine,Clean Catch Urine Culture - Preliminary Gram Negative Bacillus 1 Resulted Laboratory Tests Test 06/05/19 05:40 Sodium Level 144 MMOL/L (136-145) Potassium Level 4.2 MMOL/L (3.5-5.1) Chloride Level 109 MMOL/L (98-107) H Carbon Dioxide Level 23 MMOL/L (21-32) Anion Gap 12 mmol/L (5-15) Blood Urea Nitrogen 21 mg/dL (7-18) H Creatinine 1.0 MG/DL (0.55-1.30) Estimat Glomerular Filtration Rate > 60 mL/min (>60) Glucose Level 90 MG/DL (74-106) Calcium Level 8.6 MG/DL (8.5-10.1) Total Bilirubin 0.4 MG/DL (0.2-1.0) Aspartate Amino Transf (AST/SGOT) 19 U/L (15-37) Alanine Aminotransferase (ALT/SGPT) 21 U/L (12-78) Alkaline Phosphatase 68 U/L (46-116) Total Protein 6.3 G/DL (6.4-8.2) L Albumin 2.3 G/DL (3.4-5.0) L Globulin 4.0 g/dL Albumin/Globulin Ratio 0.6 (1.0-2.7) L Current Medications Medications (Trade) Dose Ordered Sig/Trever Route PRN Reason Start Time Stop Time Status Last Admin Dose Admin Acetaminophen (Tylenol) 650 mg Q4H PRN ORAL fever 06/04/19 16:55 07/04/19 16:54 Acetaminophen (Tylenol) 650 mg Q4H PRN ORAL Mild Pain (Pain Scale 1-3) 06/04/19 16:56 07/04/19 16:55 06/05/19 12:21 Albuterol/ Ipratropium (Albuterol/ Ipratropium) 3 ml Q4H PRN HHN Shortness of Breath 06/04/19 16:53 06/09/19 16:52 Bisacodyl (Dulcolax) 10 mg HSPRN PRN RECTAL Constipation 06/04/19 21:00 07/04/19 20:59 Ceftriaxone Sodium 1 gm/ Dextrose 55 ml @ 110 mls/hr Q24H IVPB 06/05/19 12:00 06/12/19 11:59 06/05/19 12:22 Dextrose (Dextrose 50%) 25 ml Q30M PRN IV Hypoglycemia 06/04/19 16:55 07/04/19 16:54 Dextrose (Dextrose 50%) 50 ml Q30M PRN IV Hypoglycemia 06/04/19 16:55 07/04/19 16:54 Diphenhydramine HCl (Benadryl) 25 mg Q6H PRN ORAL Itching/Pruritis 06/04/19 16:54 07/04/19 16:53 Docusate Sodium (Colace) 100 mg EVERY 12 HOURS ORAL 06/04/19 21:00 07/04/19 20:59 06/04/19 22:13 Heparin Sodium (Porcine) (Heparin 5000 units/ml) 5,000 units EVERY 12 HOURS SUBQ 06/04/19 21:00 07/04/19 20:59 06/05/19 08:37 Hydromorphone HCl (Dilaudid) 1 mg Q4H PRN IVP For Severe Pain 7-10 06/04/19 17:56 06/11/19 17:55 06/05/19 17:33 Levothyroxine Sodium (Synthroid) 200 mcg DAILY@0630 ORAL 06/05/19 06:30 07/05/19 06:29 06/05/19 05:44 Mirtazapine (Remeron) 15 mg BEDTIME ORAL 06/04/19 21:00 07/04/19 20:59 06/04/19 22:13 Morphine Sulfate (Morphine Sulfate) 1 mg Q4H PRN IVP Moderat Pain (Pain Scale 4-6) 06/04/19 18:00 06/11/19 16:54 Ondansetron HCl (Zofran) 4 mg Q6H PRN IVP Nausea & Vomiting 06/04/19 16:54 07/04/19 16:53 Sennosides (Senokot) 17.2 mg BEDTIME ORAL 06/04/19 21:00 07/04/19 20:59 06/04/19 22:12 Sodium Chloride 1,000 ml @ 75 mls/hr [id number] IV 06/05/19 12:30 07/05/19 12:29 06/05/19 12:23 Tamsulosin HCl (Flomax) 0.4 mg BEDTIME ORAL 06/04/19 21:00 07/04/19 20:59 06/04/19 22:13 Temazepam (RestoriL) 7.5 mg QHS PRN ORAL Insomnia 06/04/19 21:00 06/11/19 20:59 06/04/19 22:12 Celine Yi MD Jun 05, 2019 18:12
--- NOTE | 2019-06-05 19:18 | NUR ---
HAND-OFF: Report given to AUSTEN Bradley.
--- NOTE | 2019-06-05 20:03 | NUR ---
NURSE NOTES: Received patient awake, alert, verbal, resting in bed, wound dressing dry and intact, visitors at bedside.
[2019-06-05] MEDS: Sennosides 8.6mg tab ORAL SCH (21:00)
[2019-06-05] MEDS: Tamsulosin 0.4mg cap ORAL SCH (21:00)
[2019-06-05] MEDS: Piperacillin/Tazobactam 3.375 GM in D5W 110 ML IVPB SCH (21:25)
--- NOTE | 2019-06-06 00:30 | Consultation ---
DATE OF CONSULTATION: 06/05/2019 INFECTIOUS DISEASES CONSULTATION CONSULTING PHYSICIAN: Celine Yi M.D. ATTENDING PHYSICIAN: Jacey Deleon M.D. REFERRING PHYSICIAN: Dudley Coreas M.D. REASON FOR CONSULTATION: Urinary tract infection, pyelonephritis, and fevers. CHIEF COMPLAINT: The patient's chief complaint coming in to the hospital is urinary tract infection. HISTORY OF PRESENT ILLNESS: This is an 83-year-old male, who comes in to the [facility] and had what looks like urinary symptoms with frequency, dysuria, and hematuria. The patient has history of BPH with difficulty of urinary stream. The patient was admitted for urinary tract infection. Urinalysis had positive nitrite, 3+ leukocyte esterase, and 60-80 white cells with many bacteria. Urine culture, greater than 100,000 gram-negative rods, identification is pending. Infectious Disease consultation was requested for antibiotic management. The patient is febrile, it is question if he is septic. He has had tachycardia also, but likely has UTI/pyelonephritis. Of note, also the patient has right stump wound that is being evaluated in the outpatient setting by I believe Plastic Surgery. The patient is on Rocephin; however, because he is febrile on Rocephin, I am going to change the patient to Zosyn for gram-negative coverage. Case communicated with Dr. Coreas. I had discussed with Dr. Coreas. MAR was noted. Orders were noted. Notes were reviewed. REVIEW OF SYSTEMS: CONSTITUTIONAL: The patient has generalized fatigue. He is responsive. He has fevers as high as 102.3. HEENT: He has no headache, neck stiffness, thrush, or dysphagia. CARDIAC: No chest pain or palpitations. GASTROINTESTINAL: No nausea, vomiting, or diarrhea. GENITOURINARY: As discussed. He came in with dysuria, frequency, and decreased urinary stream. PULMONARY: No shortness of breath. No hemoptysis, secretions, cough, or congestion either. SKIN: No rash. EXTREMITIES: He has bilateral leg amputation and has generalized fatigue. No focal weakness. NEUROLOGIC: No seizures. He is alert and responsive. PAST MEDICAL HISTORY: The patient has past medical history of bilateral leg [id number]-[id number] amputation, history of right stump wound that is being followed in the outpatient setting by Plastic Surgery, he has a history of BPH. The other past medical history includes he has history of UTIs in the past it looks like, history of insomnia, hypothyroidism, and chronic wounds. No history of hypertension or diabetes mentioned. It looks like other past medical history includes melanoma with basal cell. ALLERGIES: No known drug allergies. No antibiotic allergies. SOCIAL HISTORY: Negative for smoking, alcohol, or drug abuse. FAMILY HISTORY: Noncontributory. Negative for tuberculosis or cancer. MEDICATIONS: Upon reviewing the MAR, he is on the following medications. He was on Rocephin. I am changing him to Zosyn. He is on levothyroxine, heparin, bisacodyl, mirtazapine, Restoril, Senokot, Flomax, morphine, hydromorphone, acetaminophen, and albuterol. Outside medications noted and reconciliated. PHYSICAL EXAMINATION: VITAL SIGNS: Temperature maximum is 102.3, pulse rate has been as high as 132, respiratory rate 20, blood pressure 98/52, and saturation 98%. GENERAL: Alert, responsive, oriented, weak. HEAD AND NECK: Oral exam, no thrush. Eye exam, no icterus. Normocephalic. Neck is supple. HEART: Regular. No gallop or murmur. Tachycardic. ABDOMEN: Soft. Positive bowel sounds. Nontender. LUNGS: Fairly clear bilaterally. No rhonchi or rales. SKIN: No rash or dermatitis. MUSCULOSKELETAL: He has bilateral leg [id number]-zqp-mvjh amputations. PERIPHERAL VASCULAR: Bilateral leg iioub-lso-eubr amputations. SKIN: No rash. On his right stump site, he has fairly clean wound. GENITOURINARY: No Godwin. No CVA tenderness. LINE SITES: Without phlebitis. NEUROLOGIC: Intact. Nonfocal. Alert and oriented. LABORATORY DATA: Creatinine is 1.0. LFTs were noted. White count 10.4 and hemoglobin 11.3. Urinalysis had positive nitrite, 3+ leukocyte esterase, 60-80 white blood cells, and many bacteria. Urine culture, greater than 100,000 gram-negative bacilli or gram-negative rods. IMAGING: Chest x-ray showed no acute disease. X-ray of the right femur had imilt-rnt-bhug amputation, the stump cellulitis may be present, but no evidence for acute osteo and also had what looks like possible chronic osteo of the femur versus infiltrative disease or tumor. Sedimentation rate was 113. ASSESSMENT AND PLAN: 1. The patient has gram-negative UTI, likely pyelonephritis with fevers. Rule out sepsis, tachycardia, SIRS criteria. At this time, we will continue Zosyn and discontinue Rocephin. Continue Zosyn for gram-negative UTI, pyelonephritis. Check urine culture and monitor fevers. Continue Zosyn for now. 2. Right stump wound looks fairly clean. The patient is being followed in the outpatient setting by Plastic Surgery. The patient can be followed up in the outpatient setting. The patient has questionable chronic osteo of the femur. It is unclear about the significance of this since the wound site is at the stump site, [id number]-iaz-[id number]. Again, follow up with Plastic Surgery. Sedimentation rate is elevated at 113; however, this is nonspecific. 3. Bilateral BKA. 4. Wound care protocol. 5. BPH. 6. Urinary symptoms. 7. Hypothyroidism. 8. Leg pain. 9. Insomnia. 10. Continue treatment per primary consultants. 11. No known allergies. 12. Social history is negative. 13. Family history is noncontributory. 14. MAR was noted. 15. Case discussed with RN. 16. Case discussed with Dr. Coreas. Celine Yi M.D. DR: Zeenat JOB#: [id number] CC:
[2019-06-06 04:00] VITALS: BP 112/84
[2019-06-06] MEDS: Piperacillin/Tazobactam 3.375 GM in D5W 110 ML IVPB SCH ×2 (04:01→13:06)
[2019-06-06 06:35] LABS: HEMATOCRIT 29.5 % (42.0-52.0); HEMOGLOBIN 10.4 G/DL (14.2-18.0); MEAN CORPUSCULAR VOLUME 92 FL (80-99); PLATELET COUNT 135 K/UL (150-450); RED BLOOD COUNT 3.22 M/UL (4.70-6.10)
[2019-06-06 07:25] LABS: ALANINE AMINOTRANSFERASE 30 U/L (12-78); ALBUMIN/GLOBULIN RATIO 0.5 (1.0-2.7); ALKALINE PHOSPHATASE 123 U/L (46-116); ANION GAP 16 mmol/L (5-15); ASPARTATE AMINO TRANSFERASE 43 U/L (15-37); BLOOD UREA NITROGEN 36 mg/dL (7-18); CALCIUM 8.1 MG/DL (8.5-10.1); CARBON DIOXIDE 20 MMOL/L (21-32); CHLORIDE 110 MMOL/L (98-107); CREATININE 2.5 MG/DL (0.55-1.30); POTASSIUM 3.7 MMOL/L (3.5-5.1); SODIUM 146 MMOL/L (136-145)
--- NOTE | 2019-06-06 07:26 | NUR ---
HAND-OFF: Report given to Blanca Kan RN.
--- NOTE | 2019-06-06 07:47 | NUR ---
NURSE NOTES: received report from AUSTEN Wilson. patient in bed. alert. oriented. verbally responsive. no respiratory distress noted on room air. pain on both stumps. contact isolation. PPE at all times. IV on LISA 22g saline intact. bed in the lowest position and locked. call light within reach. will continue to provide plan of care.
[2019-06-06 08:00] VITALS: BP 114/86
--- NOTE | 2019-06-06 08:00 | NUR ---
NURSE NOTES received report from marietta/ARYA. WBC 31.05
[2019-06-06 08:24] LABS: WHITE BLOOD COUNT 31.5 K/UL (4.8-10.8)
--- NOTE | 2019-06-06 08:32 | Cardiology Progress Note ---
Assessment/Plan Status: stable Assessment/Plan Assessment/Plan Problem List: (1) Leg pain (2) Hypothyroid (3) UTI (urinary tract infection) (4) Hypomagnesemia (5) Chronic wound of extremity (6) Tachycardia/Ectopy/PVCs -IV fluids -Echocardiogram pending -Check D dimer -IV abx per ID/Urology -Check thyroid function studies -continue telemetry -Hold beta blockers -Wound care consult Subjective Cardiovascular: Reports: no symptoms Respiratory: Reports: no symptoms Gastrointestinal/Abdominal: Reports: no symptoms Genitourinary: Reports: no symptoms Subjective No acute events, no fevers, WBC elevated, troponin negative, tachycardia improved with fluids, D dimer pending. Tolerating Abx, pain controlled Objective Last 24 Hour Vital Signs Date Time Temp Pulse Resp B/P (MAP) Pulse Ox O2 Delivery O2 Flow Rate FiO2 06/06/19 08:00 98.2 105 17 114/86 (95) 97 06/06/19 04:00 98.2 112 18 112/84 (93) 92 06/05/19 22:44 98.0 06/05/19 22:00 110/87 (95) 06/05/19 21:49 Room Air 06/05/19 20:30 98.0 99 18 87/49 (62) 96 06/05/19 19:32 103 22 94 Room Air 21 06/05/19 16:00 99.6 116 20 98/52 (67) 98 06/05/19 12:51 100.2 06/05/19 12:23 102.3 06/05/19 12:00 102.3 132 20 94/54 (67) 98 06/05/19 09:00 Room Air General Appearance: no apparent distress, alert EENT: normal ENT inspection, TMs normal, pharynx normal Neck: non-tender, normal alignment, supple, normal inspection, no JVD Rhythm: ST, PVCs Cardiovascular: normal peripheral pulses, no gallop/murmur, tachycardia Respiratory/Chest: chest wall non-tender, lungs clear, normal breath sounds, no respiratory distress, no accessory muscle use Abdomen: normal bowel sounds, non tender, soft, no organomegaly, no mass Extremities: normal range of motion, non-tender, normal inspection Neurologic: group tester II-XII grossly normal, no motor/sensory deficits Intake and Output 06/05/19 06/06/19 19:00 07:00 Intake Total 560 ml 1142.5 ml Output Total 100 ml Balance 560 ml 1042.5 ml Intake Oral 240 ml IV Total 560 ml 902.5 ml Output Urine Total 100 ml # Voids 3 2 Laboratory Tests Test 06/06/19 06:10 White Blood Count 31.5 K/UL (4.8-10.8) *H Red Blood Count 3.22 M/UL (4.70-6.10) L Hemoglobin 10.4 G/DL (14.2-18.0) L Hematocrit 29.5 % (42.0-52.0) L Mean Corpuscular Volume 92 FL (80-99) Mean Corpuscular Hemoglobin 32.3 PG (27.0-31.0) H Mean Corpuscular Hemoglobin Concent 35.3 G/DL (32.0-36.0) Red Cell Distribution Width 14.0 % (11.6-14.8) Platelet Count 135 K/UL (150-450) L Mean Platelet Volume 7.0 FL (6.5-10.1) Neutrophils (%) (Auto) % (45.0-75.0) Lymphocytes (%) (Auto) % (20.0-45.0) Monocytes (%) (Auto) % (1.0-10.0) Eosinophils (%) (Auto) % (0.0-3.0) Basophils (%) (Auto) % (0.0-2.0) Neutrophils % (Manual) Pending Lymphocytes % (Manual) Pending Platelet Estimate Pending Platelet Morphology Pending Sodium Level 146 MMOL/L (136-145) H Potassium Level 3.7 MMOL/L (3.5-5.1) Chloride Level 110 MMOL/L (98-107) H Carbon Dioxide Level 20 MMOL/L (21-32) L Anion Gap 16 mmol/L (5-15) H Blood Urea Nitrogen 36 mg/dL (7-18) H Creatinine 2.5 MG/DL (0.55-1.30) #H Estimat Glomerular Filtration Rate 24.7 mL/min (>60) Glucose Level 135 MG/DL (74-106) H Calcium Level 8.1 MG/DL (8.5-10.1) L Total Bilirubin 1.0 MG/DL (0.2-1.0) Aspartate Amino Transf (AST/SGOT) 43 U/L (15-37) H Alanine Aminotransferase (ALT/SGPT) 30 U/L (12-78) Alkaline Phosphatase 123 U/L (46-116) H Total Protein 6.0 G/DL (6.4-8.2) L Albumin 2.0 G/DL (3.4-5.0) L Globulin 4.0 g/dL Albumin/Globulin Ratio 0.5 (1.0-2.7) L Microbiology Date/Time Source Procedure Growth Status 06/04/19 10:45 Urine,Clean Catch Urine Culture - Final Escherichia Coli - Esbl Complete Emeka Grace MD Jun 06, 2019 08:32
[2019-06-06] MEDS: Docusate 100mg cap ORAL SCH ×2 (08:55→21:00)
[2019-06-06] MEDS: HYDROmorphone 1mg/ml Carpuject IVP PRN ×4 (08:57→21:14)
[2019-06-06] MEDS: Heparin 5000 units/ml inj SUBQ SCH ×2 (08:57→21:00)
--- NOTE | 2019-06-06 09:30 | NUR ---
NURSE NOTES: Notified Dr. Yi regarding WBC31.05. received order . blood culturex2, chest xray, CBC, CMP on 06/07/19. order noted and carried out. no fever, no diarrhea at this time.
[2019-06-06 12:00] VITALS: BP 117/80
--- NOTE | 2019-06-06 12:04 | NUR ---
DISCHARGE PLANNING NOTE FOLLOW UP TO REFERRAL SENT TO [facility] [phone] SPOKE WITH ISIDRA. STATES AGENCY UNABLE TO VERIFY MEDICARE ELIGIBILITY INFO WAS INCORRECT. INSURANCE INFO VERIFIED WITH ISIDRA AND SHE STATES INTAKE WILL VERIFY INFO AND ELIGIBILITY NOW AND CALL CM BACK. Addendum: 06/06/19 at 1547 by KAYCEE HODGE LVN LVN MARIANNE RAMIREZ AT [facility]. PATIENT ACCEPTED FOR SERVICE.
--- NOTE | 2019-06-06 12:30 | Consultation ---
DATE OF CONSULTATION: CONSULTING PHYSICIAN: Yoon Vargas M.D. HISTORY OF PRESENT ILLNESS: This is an 83-year-old male with a history of dementia, depression, and anxiety, who has been admitted to the hospital for medical stabilization. The patient is admitted due to dysuria, UTI. The patient has not been eating, withdrawn, and isolative. The patient is a poor historian and has been having difficult of being engaged and low energy. The patient apparently lives by himself and has a caregiver. However, it is documented that the patient was admitted from [facility]. . PAST PSYCHIATRIC HISTORY: PAST MEDICAL HISTORY: UTI, hypothyroidism, and hypertension. ALLERGIES: No known drug allergies. SUBSTANCE ABUSE HISTORY: No known history of illicit drug use or alcohol. MENTAL STATUS EXAMINATION: The patient is alert, oriented times self, place, situation, and date. Mood is depressed and anxious. Affect is constricted. Congruent mood. Thought process is concrete. Thought content, no suicidal or homicidal ideation. Cognition is intact. Insight and judgment are fair. ASSESSMENT: [place] I Major depressive disorder. Anxiety disorder. [place] II Deferred. [place] III . [place] IV . [place] V PLAN: 1. The patient will be started on Remeron 50 mg at bedtime. 2. Restoril 15 mg at bedtime. 3. Provide the patient with reality orientation and supportive therapy. Yoon Vargas M.D. DR: ALICIA JOB#: [id number] CC:
--- NOTE | 2019-06-06 14:10 | Infectious Diseases Prog Note ---
Assessment/Plan Assessment/Plan A) 1) esbl e.coli uti/pyelonephritis 2) fevers, sepsis, gildardo, leukocytosis now 3) right leg/stump wound - ? infected, + chronic osteomyelitis on x-ray, elevated sed rate of 113 4) was being seen by plastic surgery as an outpatient 5) pmh noted 6) allergies - nkda P) 1) meropenem started, patient septic 2) right leg/stump wound - surgery following as outpatient 3) check cultures, monitor labs and temperatures 4) d/w Dr. Coreas Subjective Constitutional: Reports: fever - fevers better HEENT: Denies: congestion Respiratory: Denies: shortness of breath Cardiovascular: Denies: chest pain Gastrointestinal/Abdominal: Denies: nausea, vomiting, diarrhea Allergies: Coded Allergies: No Known Allergies (Unverified , 01/04/17) Objective Vital Signs Last 24 Hour Vital Signs Date Time Temp Pulse Resp B/P (MAP) Pulse Ox O2 Delivery O2 Flow Rate FiO2 06/06/19 12:00 98.0 84 19 117/80 (92) 98 06/06/19 09:00 Room Air 06/06/19 08:00 98.2 105 17 114/86 (95) 97 06/06/19 04:00 98.2 112 18 112/84 (93) 92 06/05/19 22:44 98.0 06/05/19 22:00 110/87 (95) 06/05/19 21:49 Room Air 06/05/19 20:30 98.0 99 18 87/49 (62) 96 06/05/19 19:32 103 22 94 Room Air 21 06/05/19 16:00 99.6 116 20 98/52 (67) 98 Height (Feet): 5 Height (Inches): 5.00 Weight (Pounds): 176 General Appearance: no acute distress HEENT: normocephalic, atraumatic, anicteric, mucous membranes moist Respiratory/Chest: lungs clear, normal breath sounds, no respiratory distress Cardiovascular: normal rate, regular rhythm Abdomen: normal bowel sounds, soft, non tender, no organomegaly, non distended Microbiology Date/Time Source Procedure Growth Status 06/04/19 10:45 Urine,Clean Catch Urine Culture - Final Escherichia Coli - Esbl Complete Laboratory Tests Test 06/06/19 06:10 White Blood Count 31.5 K/UL (4.8-10.8) *H Red Blood Count 3.22 M/UL (4.70-6.10) L Hemoglobin 10.4 G/DL (14.2-18.0) L Hematocrit 29.5 % (42.0-52.0) L Mean Corpuscular Volume 92 FL (80-99) Mean Corpuscular Hemoglobin 32.3 PG (27.0-31.0) H Mean Corpuscular Hemoglobin Concent 35.3 G/DL (32.0-36.0) Red Cell Distribution Width 14.0 % (11.6-14.8) Platelet Count 135 K/UL (150-450) L Mean Platelet Volume 7.0 FL (6.5-10.1) Neutrophils (%) (Auto) % (45.0-75.0) Lymphocytes (%) (Auto) % (20.0-45.0) Monocytes (%) (Auto) % (1.0-10.0) Eosinophils (%) (Auto) % (0.0-3.0) Basophils (%) (Auto) % (0.0-2.0) Differential Total Cells Counted 100 Neutrophils % (Manual) 52 % (45-75) Lymphocytes % (Manual) 4 % (20-45) L Monocytes % (Manual) 1 % (1-10) Eosinophils % (Manual) 0 % (0-3) Basophils % (Manual) 0 % (0-2) Metamyelocytes % 3 % (0-0) H Myelocytes % 3 % (0-0) H Band Neutrophils 37 % (0-8) H Platelet Estimate Decreased L Platelet Morphology Normal Sodium Level 146 MMOL/L (136-145) H Potassium Level 3.7 MMOL/L (3.5-5.1) Chloride Level 110 MMOL/L (98-107) H Carbon Dioxide Level 20 MMOL/L (21-32) L Anion Gap 16 mmol/L (5-15) H Blood Urea Nitrogen 36 mg/dL (7-18) H Creatinine 2.5 MG/DL (0.55-1.30) #H Estimat Glomerular Filtration Rate 24.7 mL/min (>60) Glucose Level 135 MG/DL (74-106) H Calcium Level 8.1 MG/DL (8.5-10.1) L Total Bilirubin 1.0 MG/DL (0.2-1.0) Aspartate Amino Transf (AST/SGOT) 43 U/L (15-37) H Alanine Aminotransferase (ALT/SGPT) 30 U/L (12-78) Alkaline Phosphatase 123 U/L (46-116) H Total Protein 6.0 G/DL (6.4-8.2) L Albumin 2.0 G/DL (3.4-5.0) L Globulin 4.0 g/dL Albumin/Globulin Ratio 0.5 (1.0-2.7) L Current Medications Medications (Trade) Dose Ordered Sig/Trever Route PRN Reason Start Time Stop Time Status Last Admin Dose Admin Acetaminophen (Tylenol) 650 mg Q4H PRN ORAL fever 06/04/19 16:55 07/04/19 16:54 Acetaminophen (Tylenol) 650 mg Q4H PRN ORAL Mild Pain (Pain Scale 1-3) 06/04/19 16:56 07/04/19 16:55 06/05/19 12:21 Albuterol/ Ipratropium (Albuterol/ Ipratropium) 3 ml Q4H PRN HHN Shortness of Breath 06/04/19 16:53 06/09/19 16:52 Bisacodyl (Dulcolax) 10 mg HSPRN PRN RECTAL Constipation 06/04/19 21:00 07/04/19 20:59 Dextrose (Dextrose 50%) 25 ml Q30M PRN IV Hypoglycemia 06/04/19 16:55 07/04/19 16:54 Dextrose (Dextrose 50%) 50 ml Q30M PRN IV Hypoglycemia 06/04/19 16:55 07/04/19 16:54 Diphenhydramine HCl (Benadryl) 25 mg Q6H PRN ORAL Itching/Pruritis 06/04/19 16:54 07/04/19 16:53 Docusate Sodium (Colace) 100 mg EVERY 12 HOURS ORAL 06/04/19 21:00 07/04/19 20:59 06/06/19 08:55 Heparin Sodium (Porcine) (Heparin 5000 units/ml) 5,000 units EVERY 12 HOURS SUBQ 06/04/19 21:00 07/04/19 20:59 06/05/19 08:37 Hydromorphone HCl (Dilaudid) 1 mg Q4H PRN IVP For Severe Pain 7-10 06/04/19 17:56 06/11/19 17:55 06/06/19 13:06 Levothyroxine Sodium (Synthroid) 200 mcg DAILY@0630 ORAL 06/05/19 06:30 07/05/19 06:29 06/06/19 05:35 Mirtazapine (Remeron) 15 mg BEDTIME ORAL 06/04/19 21:00 07/04/19 20:59 06/04/19 22:13 Morphine Sulfate (Morphine Sulfate) 1 mg Q4H PRN IVP Moderat Pain (Pain Scale 4-6) 06/04/19 18:00 06/11/19 16:54 Ondansetron HCl (Zofran) 4 mg Q6H PRN IVP Nausea & Vomiting 06/04/19 16:54 07/04/19 16:53 Piperacillin Sod/ Tazobactam Sod 3.375 gm/Dextrose 110 ml @ 27.5 mls/hr EVERY 8 HOURS IVPB 06/05/19 22:00 06/10/19 21:59 06/06/19 13:06 Sennosides (Senokot) 17.2 mg BEDTIME ORAL 06/04/19 21:00 07/04/19 20:59 06/04/19 22:12 Sodium Chloride 1,000 ml @ 75 mls/hr [id number] IV 06/05/19 12:30 07/05/19 12:29 06/05/19 21:29 Tamsulosin HCl (Flomax) 0.4 mg BEDTIME ORAL 06/04/19 21:00 07/04/19 20:59 06/04/19 22:13 Temazepam (RestoriL) 7.5 mg QHS PRN ORAL Insomnia 06/04/19 21:00 06/11/19 20:59 06/04/19 22:12 Celine Yi MD Jun 06, 2019 14:10
--- NOTE | 2019-06-06 14:32 | NUR ---
CHARGE NURSE NOTE: Pt refused blood culture draw. notified.
--- NOTE | 2019-06-06 15:58 | NUR ---
CASE MANAGEMENT:REVIEW SI;UTI. SEPSIS. LEUKOCYTOSIS. RT STUMP WOUND. 98.2 112 20 112/84 96% ON RA WBC 31.5 NA 146 CL 110 BUN 36 CR 2.5 CA 8.1 IS;MEROPENEM IV Q12 HRS IVF NS @ 75 ML/HR HEPARIN IV Q12 HRS MORPHINE SULFATE IV Q4 HRS PRN SYNTHROID PO QD DUO NEB HHN Q4 HRS PRN SOB MED SURG STATUS DCP;HOME WITH [facility]
[2019-06-06 16:00] VITALS: BP 113/79
--- NOTE | 2019-06-06 16:38 | Diagnostic Imaging Report ---
Indication: Dyspnea Comparison: 06/04/2019 A single view chest radiograph was obtained. Findings: Lung volumes are low. Heart is enlarged. Interstitium is prominent but no overt CHF seen. Bones are osteopenic. IMPRESSION: No significant change at this time.
--- NOTE | 2019-06-06 16:57 | General Progress Note ---
Assessment/Plan Problem List: (1) Leg pain ICD Codes: M79.606 - Leg pain SNOMED: 86744788 (2) Hypothyroid ICD Codes: E03.9 - Hypothyroid SNOMED: 96650629 (3) UTI (urinary tract infection) ICD Codes: N39.0 - Urinary tract infection, site not specified SNOMED: 88181612, 06411257, 02012428, 165604145 Qualifiers: Qualified Codes: N39.0 - Urinary tract infection, site not specified (4) Hypomagnesemia ICD Codes: E83.42 - Hypomagnesemia SNOMED: 896872640, 96429060, 06320563, 788184267 (5) Chronic wound of extremity SNOMED: 564178429, 96362845, 535130002 Status: stable Assessment/Plan: #Dysuria #Hematuria #Acute UTI #Suspected BPH -Continue empiric abx (Ceftraixone /2 -06/05), (meropenem 06/05 -) -UA + for UTI, f/u urine culture. -BCx ordered per ID (06/05) f/u. -ID consult placed. -Dilaudid for pain. -Start flomax 0.4 mg qhs, for probable BPH. #Sinus tachycardia EKG with sinus tachycardia. Likely from infection, dehydration. -IV fluids at 75 mL/hr. -Echocardiogram -Check D dimer -Check thyroid function studies -continue telemetry -Hold beta blockers etc #hx of bilateral BKA -Wound care. -Continue weekly wound care clinic f/u on Mondays outpatient. #Insomnia -continue qhs home meds (mirtazapine, remeron). #Hypothyroidism -Continue home synthroid. #Dispo -Home health to be ordered by CM. d/w with CM. #DNAR status -noted. Time spent on encounter, 37 minutes, >50% on counseling, coordination of care. Time of note does not relfect time of encounter. Subjective Date patient seen: Jun 06, 2019 Time patient seen: 14:00 Constitutional: Denies: no symptoms, chills, diaphoresis, fever, malaise, weakness, other HEENT: Denies: no symptoms, eye pain, blurred vision, tearing, double vision, ear pain, ear discharge, nose pain, nose congestion, throat pain, throat swelling, mouth pain, mouth swelling, other Cardiovascular: Denies: no symptoms, chest pain, edema, irregular heart rate, lightheadedness, palpitations, syncope, other Respiratory: Denies: no symptoms, cough, orthopnea, shortness of breath, SOB with excertion, SOB at rest, sputum, stridor, wheezing, other Gastrointestinal/Abdominal: Denies: no symptoms, abdomen distended, abdominal pain, black stools, tarry stools, blood in stool, constipated, diarrhea, difficulty swallowing, nausea, poor appetite, poor fluid intake, rectal bleeding , vomiting, other Genitourinary: Denies: no symptoms, burning, discharge, frequency, flank pain, hematuria, incontinence, pain, urgency, other Neurologic/Psychiatric: Denies: no symptoms, anxiety, depressed, emotional problems, headache, numbness, paresthesia, pre-existing deficit, seizure, tingling, tremors, weakness, other Endocrine: Denies: no symptoms, excessive sweating, flushing, intolerance to cold, intolerance to heat, increased hunger, increased thirst, increased urine, unexplained weight gain, unexplained weight loss, other Hematologic/Lymphatic: Denies: no symptoms, anemia, easy bleeding, easy bruising, other Allergies: Coded Allergies: No Known Allergies (Unverified , 01/04/17) Subjective complaining of 9/10 RLE stump pain, although seen very comfortable. angry at RN that she is not giving him pain meds. Objective Last 24 Hour Vital Signs Date Time Temp Pulse Resp B/P (MAP) Pulse Ox O2 Delivery O2 Flow Rate FiO2 06/06/19 12:00 98.0 84 19 117/80 (92) 98 06/06/19 09:00 Room Air 06/06/19 08:36 99 20 96 Room Air 21 06/06/19 08:00 98.2 105 17 114/86 (95) 97 06/06/19 04:00 98.2 112 18 112/84 (93) 92 06/05/19 22:44 98.0 06/05/19 22:00 110/87 (95) 06/05/19 21:49 Room Air 06/05/19 20:30 98.0 99 18 87/49 (62) 96 06/05/19 19:32 103 22 94 Room Air 21 Intake and Output 06/05/19 06/06/19 19:00 07:00 Intake Total 560 ml 1142.5 ml Output Total 100 ml Balance 560 ml 1042.5 ml Intake Oral 240 ml IV Total 560 ml 902.5 ml Output Urine Total 100 ml # Voids 3 2 Laboratory Tests 06/06/19 06:10: White Blood Count 31.5*H, Red Blood Count 3.22L, Hemoglobin 10.4L, Hematocrit 29.5L, Mean Corpuscular Volume 92, Mean Corpuscular Hemoglobin 32.3H, Mean Corpuscular Hemoglobin Concent 35.3, Red Cell Distribution Width 14.0, Platelet Count 135L, Mean Platelet Volume 7.0, Neutrophils (%) (Auto) , Lymphocytes (%) ( Auto) , Monocytes (%) (Auto) , Eosinophils (%) (Auto) , Basophils (%) (Auto) , Differential Total Cells Counted 100, Neutrophils % (Manual) 52, Lymphocytes % ( Manual) 4L, Monocytes % (Manual) 1, Eosinophils % (Manual) 0, Basophils % ( Manual) 0, Metamyelocytes % 3H, Myelocytes % 3H, Band Neutrophils 37H, Platelet Estimate DecreasedL, Platelet Morphology Normal, Sodium Level 146H, Potassium Level 3.7, Chloride Level 110H, Carbon Dioxide Level 20L, Anion Gap 16H, Blood Urea Nitrogen 36H, Creatinine 2.5#H, Estimat Glomerular Filtration Rate 24.7, Glucose Level 135H, Calcium Level 8.1L, Total Bilirubin 1.0, Aspartate Amino Transf (AST/SGOT) 43H, Alanine Aminotransferase (ALT/SGPT) 30, Alkaline Phosphatase 123H, Total Protein 6.0L, Albumin 2.0L, Globulin 4.0, Albumin/ Globulin Ratio 0.5L Height (Feet): 5 Height (Inches): 5.00 Weight (Pounds): 176 General Appearance: no apparent distress, alert Neck: supple Cardiovascular: normal rate, regular rhythm Respiratory/Chest: lungs clear, normal breath sounds Abdomen: non tender, soft Barb Coreas M.D. Jun 06, 2019 16:57
--- NOTE | 2019-06-06 19:10 | NUR ---
HAND-OFF: Report given to AUSTEN Beltran.
[2019-06-06 20:00] VITALS: BP 119/47
--- NOTE | 2019-06-06 20:02 | NUR ---
NURSE NOTES: Patient in bed, awake, alert and verbally responsive. Able to make needs known. Respiration is even and unlabored. Bed in low and locked position. provided safe environment. IV site noted, iv fluid is infusing. No complaint of pain or discomfort noted. Skin is warm and dry to touch. Abdomen is soft and non distended. call light is at bedside. Will continue plan of care.
[2019-06-06] MEDS: Sennosides 8.6mg tab ORAL SCH (21:00)
[2019-06-06] MEDS: Tamsulosin 0.4mg cap ORAL SCH (21:13)
[2019-06-06] MEDS: Meropenem 500 MG in NS 100 ML IVPB SCH (21:13)
[2019-06-07] VITALS: BP 102/64
[2019-06-07] MEDS: HYDROmorphone 1mg/ml Carpuject IVP PRN ×5 (01:29→20:07)
[2019-06-07 04:00] VITALS: BP 105/57
--- NOTE | 2019-06-07 06:00 | NUR ---
NURSE NOTES: Patient refused blood draw at the moment. Educated the patient regarding blood draw, still refused. Will ask again.
--- NOTE | 2019-06-07 06:57 | NUR ---
HAND-OFF: Report given to Koko Kan.
--- NOTE | 2019-06-07 07:55 | NUR ---
NURSE NOTES: received report from AUSTEN Beltran. patient in bed. alert. verbally responsive. no respiratory distress noted. no pain at this time. IV on LIA22g running ns@75/hr. dressing on stumps intact. clean and dry. contact isolation. PPE at all times. bed in the lowest position and locked. call light within reach. will continue to provide plan of care.
[2019-06-07 08:00] VITALS: BP 99/52
--- NOTE | 2019-06-07 08:15 | Cardiology Progress Note ---
Assessment/Plan Status: stable Assessment/Plan Assessment/Plan Problem List: (1) Leg pain (2) Hypothyroid (3) UTI (urinary tract infection) (4) Hypomagnesemia (5) Chronic wound of extremity (6) Tachycardia/Ectopy/PVCs Tachycardia has improved with fluids and pain control. -IV fluids -Echocardiogram pending -Check D dimer -IV abx per ID/Urology -Check thyroid function studies -continue telemetry -Hold beta blockers -Wound care consult Subjective Subjective No acute events, no fevers, WBC elevated, troponin negative, tachycardia improved with fluids, D dimer pending. Tolerating Abx, pain controlled. Patient does not allow further blood draws and is concerned about being anemic. Objective Last 24 Hour Vital Signs Date Time Temp Pulse Resp B/P (MAP) Pulse Ox O2 Delivery O2 Flow Rate FiO2 06/07/19 08:00 97.3 87 20 99/52 (68) 96 06/07/19 04:00 98.0 91 20 105/57 (73) 96 06/07/19 00:00 97.8 91 20 102/64 (77) 94 06/06/19 21:00 Room Air 06/06/19 20:17 91 20 96 Room Air 21 06/06/19 20:00 97.9 98 18 119/47 (71) 94 06/06/19 16:00 98.0 86 18 113/79 (90) 99 06/06/19 12:00 98.0 84 19 117/80 (92) 98 06/06/19 09:00 Room Air 06/06/19 08:36 99 20 96 Room Air 21 General Appearance: no apparent distress, alert EENT: PERRL/EOMI, normal ENT inspection, TMs normal, pharynx normal Neck: non-tender, normal alignment, supple, normal inspection, no JVD Rhythm: NSR Cardiovascular: normal peripheral pulses, normal rate, regular rhythm Respiratory/Chest: chest wall non-tender, lungs clear, normal breath sounds, no respiratory distress, no accessory muscle use Abdomen: normal bowel sounds, non tender, soft, no organomegaly, no mass Extremities: normal range of motion, non-tender, normal inspection, no calf tenderness, no swelling Neurologic: rn visiting II-XII grossly normal, no motor/sensory deficits Intake and Output 06/06/19 06/07/19 19:00 07:00 Intake Total 552.5 ml 1800 ml Output Total 400 ml Balance 552.5 ml 1400 ml Intake Oral 1400 ml IV Total 552.5 ml 400 ml Output Urine Total 400 ml # Voids 3 # Bowel Movements 1 Microbiology Date/Time Source Procedure Growth Status 06/04/19 10:45 Urine,Clean Catch Urine Culture - Final Escherichia Coli - Esbl Complete Emeka Grace MD Jun 07, 2019 08:15
[2019-06-07 08:48] LABS: HEMATOCRIT 28.5 % (42.0-52.0); HEMOGLOBIN 9.8 G/DL (14.2-18.0); MEAN CORPUSCULAR VOLUME 93 FL (80-99); PLATELET COUNT 94 K/UL (150-450); RED BLOOD COUNT 3.08 M/UL (4.70-6.10)
[2019-06-07 08:50] LABS: ALANINE AMINOTRANSFERASE 26 U/L (12-78); ALBUMIN 1.9 G/DL (3.4-5.0); ALBUMIN/GLOBULIN RATIO 0.5 (1.0-2.7); ALKALINE PHOSPHATASE 153 U/L (46-116); ANION GAP 9 mmol/L (5-15); ASPARTATE AMINO TRANSFERASE 44 U/L (15-37); BILIRUBIN,TOTAL 0.6 MG/DL (0.2-1.0); BLOOD UREA NITROGEN 39 mg/dL (7-18); CALCIUM 8.4 MG/DL (8.5-10.1); CARBON DIOXIDE 23 MMOL/L (21-32); CHLORIDE 111 MMOL/L (98-107); CREATININE 1.2 MG/DL (0.55-1.30); POTASSIUM 3.6 MMOL/L (3.5-5.1); SODIUM 143 MMOL/L (136-145)
[2019-06-07 08:53] LABS: WHITE BLOOD COUNT 34.6 K/UL (4.8-10.8)
--- NOTE | 2019-06-07 08:53 | NUR ---
NURSE NOTES: Received critical value from lab. Will Notify MD Roque.
[2019-06-07] MEDS: Heparin 5000 units/ml inj SUBQ SCH ×2 (09:00→21:00)
[2019-06-07] MEDS: Docusate 100mg cap ORAL SCH ×2 (09:06→21:15)
[2019-06-07] MEDS: Meropenem 500 MG in NS 100 ML IVPB SCH (09:06)
--- NOTE | 2019-06-07 09:31 | NUR ---
NURSE NOTES: MD Roque retuned call, no new orders, stated he will be here to see patient.
--- NOTE | 2019-06-07 11:16 | General Progress Note ---
Assessment/Plan Problem List: (1) Leg pain ICD Codes: M79.606 - Leg pain SNOMED: 02014260 (2) Hypothyroid ICD Codes: E03.9 - Hypothyroid SNOMED: 58490116 (3) UTI (urinary tract infection) ICD Codes: N39.0 - Urinary tract infection, site not specified SNOMED: 27190757, 85255514, 20690337, 899838387 Qualifiers: Qualified Codes: N39.0 - Urinary tract infection, site not specified (4) Hypomagnesemia ICD Codes: E83.42 - Hypomagnesemia SNOMED: 255683959, 72645701, 65839089, 158695511 (5) Chronic wound of extremity SNOMED: 303785447, 76497889, 956711770 Status: stable Assessment/Plan: #Dysuria #Hematuria #Acute UTI #Suspected BPH -Continue empiric abx (Ceftraixone 3/2 -3/4), (meropenem /4 -) -UA + for UTI, f/u urine culture. -BCx ordered per ID (06/05) f/u. -ID consult placed. -Dilaudid for pain. -Continue flomax 0.4 mg qhs, for probable BPH. #Sinus tachycardia EKG with sinus tachycardia. Likely from infection, dehydration. -IV fluids at 75 mL/hr. -Echocardiogram -Check D dimer -Check thyroid function studies -continue telemetry -Hold beta blockers etc #hx of bilateral BKA -Wound care. -Continue weekly wound care clinic f/u on Mondays outpatient. #Insomnia -continue qhs home meds (mirtazapine, remeron). #Hypothyroidism -Continue home synthroid. #Dispo -Home health to be ordered by CM. d/w with CM. #DNAR status -noted. Time spent on encounter, 37 minutes, >50% on counseling, coordination of care. Time of note does not relfect time of encounter. Subjective Date patient seen: Jun 07, 2019 Time patient seen: 10:15 Constitutional: Denies: no symptoms, chills, diaphoresis, fever, malaise, weakness, other HEENT: Denies: no symptoms, eye pain, blurred vision, tearing, double vision, ear pain, ear discharge, nose pain, nose congestion, throat pain, throat swelling, mouth pain, mouth swelling, other Cardiovascular: Denies: no symptoms, chest pain, edema, irregular heart rate, lightheadedness, palpitations, syncope, other Respiratory: Denies: no symptoms, cough, orthopnea, shortness of breath, SOB with excertion, SOB at rest, sputum, stridor, wheezing, other Gastrointestinal/Abdominal: Denies: no symptoms, abdomen distended, abdominal pain, black stools, tarry stools, blood in stool, constipated, diarrhea, difficulty swallowing, nausea, poor appetite, poor fluid intake, rectal bleeding , vomiting, other Genitourinary: Denies: no symptoms, burning, discharge, frequency, flank pain, hematuria, incontinence, pain, urgency, other Neurologic/Psychiatric: Denies: no symptoms, anxiety, depressed, emotional problems, headache, numbness, paresthesia, pre-existing deficit, seizure, tingling, tremors, weakness, other Endocrine: Denies: no symptoms, excessive sweating, flushing, intolerance to cold, intolerance to heat, increased hunger, increased thirst, increased urine, unexplained weight gain, unexplained weight loss, other Hematologic/Lymphatic: Denies: no symptoms, anemia, easy bleeding, easy bruising, other Allergies: Coded Allergies: No Known Allergies (Unverified , 01/04/17) Subjective overall feeling better. pain improved. 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 Objective Last 24 Hour Vital Signs Date Time Temp Pulse Resp B/P (MAP) Pulse Ox O2 Delivery O2 Flow Rate FiO2 06/07/19 09:00 Room Air 06/07/19 08:07 71 18 99 Room Air 21 06/07/19 08:00 97.3 87 20 99/52 (68) 96 06/07/19 04:00 98.0 91 20 105/57 (73) 96 06/07/19 00:00 97.8 91 20 102/64 (77) 94 06/06/19 21:00 Room Air 06/06/19 20:17 91 20 96 Room Air 21 06/06/19 20:00 97.9 98 18 119/47 (71) 94 06/06/19 16:00 98.0 86 18 113/79 (90) 99 06/06/19 12:00 98.0 84 19 117/80 (92) 98 Intake and Output 06/06/19 06/07/19 19:00 07:00 Intake Total 552.5 ml 1800 ml Output Total 400 ml Balance 552.5 ml 1400 ml Intake Oral 1400 ml IV Total 552.5 ml 400 ml Output Urine Total 400 ml # Voids 3 # Bowel Movements 1 Laboratory Tests 06/07/19 08:15: White Blood Count 34.6*H, Red Blood Count 3.08L, Hemoglobin 9.8L, Hematocrit 28.5L, Mean Corpuscular Volume 93, Mean Corpuscular Hemoglobin 31.8H, Mean Corpuscular Hemoglobin Concent 34.4, Red Cell Distribution Width 14.0, Platelet Count 94L, Mean Platelet Volume 7.8, Neutrophils (%) (Auto) , Lymphocytes (%) ( Auto) , Monocytes (%) (Auto) , Eosinophils (%) (Auto) , Basophils (%) (Auto) , Differential Total Cells Counted 100, Neutrophils % (Manual) 95H, Lymphocytes % (Manual) 4L, Monocytes % (Manual) 1, Eosinophils % (Manual) 0, Basophils % ( Manual) 0, Band Neutrophils 0, Platelet Estimate DecreasedL, Platelet Morphology Normal, Hypochromasia 2+, Anisocytosis 1+, Sodium Level 143, Potassium Level 3.6, Chloride Level 111H, Carbon Dioxide Level 23, Anion Gap 9, Blood Urea Nitrogen 39H, Creatinine 1.2#, Estimat Glomerular Filtration Rate 57.5, Glucose Level 121H, Calcium Level 8.4L, Total Bilirubin 0.6, Aspartate Amino Transf (AST/SGOT) 44H, Alanine Aminotransferase (ALT/SGPT) 26, Alkaline Phosphatase 153H, Total Protein 5.8L, Albumin 1.9L, Globulin 3.9, Albumin/ Globulin Ratio 0.5L Height (Feet): 5 Height (Inches): 5.00 Weight (Pounds): 176 General Appearance: no apparent distress, alert Neck: supple Cardiovascular: normal rate, regular rhythm Respiratory/Chest: lungs clear, normal breath sounds Abdomen: non tender, soft Barb Coreas M.D. Jun 07, 2019 11:16
[2019-06-07 12:00] VITALS: BP 96/56
[2019-06-07 16:00] VITALS: BP 96/58
--- NOTE | 2019-06-07 19:10 | NUR ---
HAND-OFF: Report given to AUTSEN Dey.
--- NOTE | 2019-06-07 19:32 | Infectious Diseases Prog Note ---
Assessment/Plan Assessment/Plan ASSESSMENT AND PLAN: 1. esbl e.coli uti/pyelonephritis, sepsis, leukocytosis, fevers - meropenem - day # 2 - monitor labs, wbc and temps - clinically slowly improving, fevers resolved - may need CT imaging if wbc does not improve - d/w pharmacy about meropenem and renal dosing 2. Right stump wound looks fairly clean. The patient is being followed in the outpatient setting by Plastic Surgery. The patient has questionable chronic osteo of the femur. It is unclear about the significance of this since the wound site is at the stump site, [id number]. Again, follow up with Plastic Surgery. Sedimentation rate is elevated at 113; however, this is nonspecific. 3. Bilateral BKA. 4. Wound care protocol. 5. BPH. 6. Urinary symptoms. 7. Hypothyroidism. 8. Leg pain. 9. Insomnia. 10. Continue treatment per primary consultants. 11. No known allergies. 12. Social history is negative. 13. Family history is noncontributory. 14. MAR was noted. 15. Case discussed with RN. 16. Case discussed with Dr. Coreas. Subjective Constitutional: Denies: fever HEENT: Denies: congestion Respiratory: Denies: shortness of breath Cardiovascular: Denies: chest pain Gastrointestinal/Abdominal: Denies: nausea, vomiting, diarrhea Genitourinary: Reports: dysuria, frequency Neurologic: Reports: weakness, other - mental status stable, alert Psychiatric: Denies: depression Skin: Reports: other - right stump wound ; Denies: rash Hematologic: Denies: bleeding Musculoskeletal: Denies: pain Allergies: Coded Allergies: No Known Allergies (Unverified , 01/04/17) Objective Vital Signs Last 24 Hour Vital Signs Date Time Temp Pulse Resp B/P (MAP) Pulse Ox O2 Delivery O2 Flow Rate FiO2 06/07/19 16:00 98.2 85 20 96/58 (71) 96 06/07/19 12:00 98.0 86 20 96/56 (69) 97 06/07/19 09:00 Room Air 06/07/19 08:07 71 18 99 Room Air 21 06/07/19 08:00 97.3 87 20 99/52 (68) 96 06/07/19 04:00 98.0 91 20 105/57 (73) 96 06/07/19 00:00 97.8 91 20 102/64 (77) 94 06/06/19 21:00 Room Air 06/06/19 20:17 91 20 96 Room Air 21 06/06/19 20:00 97.9 98 18 119/47 (71) 94 Height (Feet): 5 Height (Inches): 5.00 Weight (Pounds): 176 General Appearance: no acute distress HEENT: normocephalic, atraumatic, anicteric, mucous membranes moist Respiratory/Chest: lungs clear, normal breath sounds, no respiratory distress, no accessory muscle use Cardiovascular: normal rate, regular rhythm, no gallop/murmur, no JVD Abdomen: normal bowel sounds, soft, non tender, no organomegaly, non distended Genitourinary: other - no plascencia Extremities: other - bilateral bka, right leg/stump wound stable Skin: no rash 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 Findings: Lung volumes are low. Heart is enlarged. Interstitium is prominent but no overt CHF seen. Bones are osteopenic. IMPRESSION: No significant change at this time. Microbiology Date/Time Source Procedure Growth Status 06/04/19 10:45 Urine,Clean Catch Urine Culture - Final Escherichia Coli - Esbl Complete Laboratory Tests Test 06/07/19 08:15 White Blood Count 34.6 K/UL (4.8-10.8) *H Red Blood Count 3.08 M/UL (4.70-6.10) L Hemoglobin 9.8 G/DL (14.2-18.0) L Hematocrit 28.5 % (42.0-52.0) L Mean Corpuscular Volume 93 FL (80-99) Mean Corpuscular Hemoglobin 31.8 PG (27.0-31.0) H Mean Corpuscular Hemoglobin Concent 34.4 G/DL (32.0-36.0) Red Cell Distribution Width 14.0 % (11.6-14.8) Platelet Count 94 K/UL (150-450) L Mean Platelet Volume 7.8 FL (6.5-10.1) Neutrophils (%) (Auto) % (45.0-75.0) Lymphocytes (%) (Auto) % (20.0-45.0) Monocytes (%) (Auto) % (1.0-10.0) Eosinophils (%) (Auto) % (0.0-3.0) Basophils (%) (Auto) % (0.0-2.0) Differential Total Cells Counted 100 Neutrophils % (Manual) 95 % (45-75) H Lymphocytes % (Manual) 4 % (20-45) L Monocytes % (Manual) 1 % (1-10) Eosinophils % (Manual) 0 % (0-3) Basophils % (Manual) 0 % (0-2) Band Neutrophils 0 % (0-8) Platelet Estimate Decreased L Platelet Morphology Normal Hypochromasia 2+ Anisocytosis 1+ Sodium Level 143 MMOL/L (136-145) Potassium Level 3.6 MMOL/L (3.5-5.1) Chloride Level 111 MMOL/L (98-107) H Carbon Dioxide Level 23 MMOL/L (21-32) Anion Gap 9 mmol/L (5-15) Blood Urea Nitrogen 39 mg/dL (7-18) H Creatinine 1.2 MG/DL (0.55-1.30) # Estimat Glomerular Filtration Rate 57.5 mL/min (>60) Glucose Level 121 MG/DL (74-106) H Calcium Level 8.4 MG/DL (8.5-10.1) L Total Bilirubin 0.6 MG/DL (0.2-1.0) Aspartate Amino Transf (AST/SGOT) 44 U/L (15-37) H Alanine Aminotransferase (ALT/SGPT) 26 U/L (12-78) Alkaline Phosphatase 153 U/L (46-116) H Total Protein 5.8 G/DL (6.4-8.2) L Albumin 1.9 G/DL (3.4-5.0) L Globulin 3.9 g/dL Albumin/Globulin Ratio 0.5 (1.0-2.7) L Current Medications Medications (Trade) Dose Ordered Sig/Trever Route PRN Reason Start Time Stop Time Status Last Admin Dose Admin Acetaminophen (Tylenol) 650 mg Q4H PRN ORAL fever 06/04/19 16:55 07/04/19 16:54 Acetaminophen (Tylenol) 650 mg Q4H PRN ORAL Mild Pain (Pain Scale 1-3) 06/04/19 16:56 07/04/19 16:55 06/05/19 12:21 Albuterol/ Ipratropium (Albuterol/ Ipratropium) 3 ml Q4H PRN HHN Shortness of Breath 06/04/19 16:53 06/09/19 16:52 Bisacodyl (Dulcolax) 10 mg HSPRN PRN RECTAL Constipation 06/04/19 21:00 07/04/19 20:59 Dextrose (Dextrose 50%) 25 ml Q30M PRN IV Hypoglycemia 06/04/19 16:55 07/04/19 16:54 Dextrose (Dextrose 50%) 50 ml Q30M PRN IV Hypoglycemia 06/04/19 16:55 07/04/19 16:54 Diphenhydramine HCl (Benadryl) 25 mg Q6H PRN ORAL Itching/Pruritis 06/04/19 16:54 07/04/19 16:53 Docusate Sodium (Colace) 100 mg EVERY 12 HOURS ORAL 06/04/19 21:00 07/04/19 20:59 06/07/19 09:06 Heparin Sodium (Porcine) (Heparin 5000 units/ml) 5,000 units EVERY 12 HOURS SUBQ 06/04/19 21:00 07/04/19 20:59 06/05/19 08:37 Hydromorphone HCl (Dilaudid) 1 mg Q4H PRN IVP For Severe Pain 7-10 06/04/19 17:56 06/11/19 17:55 06/07/19 16:03 Levothyroxine Sodium (Synthroid) 200 mcg DAILY@0630 ORAL 06/05/19 06:30 07/05/19 06:29 06/07/19 05:37 Meropenem 500 mg/ Sodium Chloride 100 ml @ 200 mls/hr Q12HR IVPB 06/06/19 21:00 06/11/19 20:59 06/07/19 09:06 Mirtazapine (Remeron) 15 mg BEDTIME ORAL 06/04/19 21:00 07/04/19 20:59 06/06/19 21:13 Morphine Sulfate (Morphine Sulfate) 1 mg Q4H PRN IVP Moderat Pain (Pain Scale 4-6) 06/04/19 18:00 06/11/19 16:54 Ondansetron HCl (Zofran) 4 mg Q6H PRN IVP Nausea & Vomiting 06/04/19 16:54 07/04/19 16:53 Sennosides (Senokot) 17.2 mg BEDTIME ORAL 06/04/19 21:00 07/04/19 20:59 06/04/19 22:12 Sodium Chloride 1,000 ml @ 75 mls/hr [id number] IV 06/05/19 12:30 07/05/19 12:29 06/07/19 17:50 Tamsulosin HCl (Flomax) 0.4 mg BEDTIME ORAL 06/04/19 21:00 07/04/19 20:59 06/06/19 21:13 Temazepam (RestoriL) 7.5 mg QHS PRN ORAL Insomnia 06/04/19 21:00 06/11/19 20:59 06/06/19 22:22 Celine Yi MD Jun 07, 2019 19:32
--- NOTE | 2019-06-07 19:52 | NUR ---
nurse's notes: received patient awake, alert and oriented; admits to 8/10 sharp pain on both knees and penis; requesting for pain medication; education given on pain management and plan of care; patient verbalized understanding
[2019-06-07 20:00] VITALS: BP 85/53
[2019-06-07] MEDS: Meropenem 1gm in NS 55ml IVPB SCH (21:15)
[2019-06-07] MEDS: Tamsulosin 0.4mg cap ORAL SCH (21:15)
[2019-06-07] MEDS: Sennosides 8.6mg tab ORAL SCH (21:16)
[2019-06-08] VITALS: BP 92/74
[2019-06-08] MEDS: HYDROmorphone 1mg/ml Carpuject IVP PRN ×6 (00:04→20:29)
[2019-06-08 04:00] VITALS: BP 99/73
--- NOTE | 2019-06-08 04:15 | Progress Note ---
DATE: 06/07/2019 SUBJECTIVE: This is an 83-year-old male who has presented with depressed mood, anhedonia, worthlessness, hopelessness, decreased energy, and anxiety. MENTAL STATUS EXAMINATION: The patient is alert and oriented times self, place, and situation. Mood is neutral. Affect is flat. Thought process is concrete. Thought content, no suicidal or homicidal ideation. Cognition is intact. Insight and judgment are fair. ASSESSMENT: Major depressive disorder. PLAN: 1. Remeron 15 mg at bedtime. 2. . 3. Provide the patient with reality orientation and supportive therapy. Yoon Vargas M.D. DR: REJI JOB#: [id number] CC:
[2019-06-08 05:47] LABS: HEMATOCRIT 27.2 % (42.0-52.0); HEMOGLOBIN 9.6 G/DL (14.2-18.0); MEAN CORPUSCULAR VOLUME 93 FL (80-99); PLATELET COUNT 91 K/UL (150-450); RED BLOOD COUNT 2.94 M/UL (4.70-6.10); RED CELL DISTRIBUTION WIDTH 13.9 % (11.6-14.8); WHITE BLOOD COUNT 18.4 K/UL (4.8-10.8)
[2019-06-08 06:14] LABS: ALANINE AMINOTRANSFERASE 31 U/L (12-78); ALBUMIN 1.7 G/DL (3.4-5.0); ALBUMIN/GLOBULIN RATIO 0.4 (1.0-2.7); ALKALINE PHOSPHATASE 241 U/L (46-116); ANION GAP 12 mmol/L (5-15); ASPARTATE AMINO TRANSFERASE 37 U/L (15-37); BILIRUBIN,TOTAL 0.7 MG/DL (0.2-1.0); BLOOD UREA NITROGEN 32 mg/dL (7-18); CALCIUM 8.1 MG/DL (8.5-10.1); CARBON DIOXIDE 19 MMOL/L (21-32); CHLORIDE 112 MMOL/L (98-107); POTASSIUM 3.7 MMOL/L (3.5-5.1); SODIUM 143 MMOL/L (136-145)
--- NOTE | 2019-06-08 06:24 | NUR ---
nurse's notes: no incidents of falls, injuries or trauma reported as of this time; patient still requiring ATC IV pain medication; education given on post discharge pain management as patient is anticipated to go home today with home health to do follow-ups; patient verbalized understanding; deferred AM care until after breakfast; no other complaints received.
--- NOTE | 2019-06-08 07:31 | NUR ---
NURSE NOTES: Received pt in bed, AAO x4. RA. No s/s of acute distress. c/o of pain on knee. IV on LISA noted, running NS @ 75 ml/hr. Side rails x 3. Bed in the lowest, locked, and alarm on. Call light within reach. Will continue to monitor
[2019-06-08 08:00] VITALS: BP 96/55
[2019-06-08] MEDS: Heparin 5000 units/ml inj SUBQ SCH ×2 (08:06→20:30)
[2019-06-08] MEDS: Docusate 100mg cap ORAL SCH ×2 (08:15→20:29)
[2019-06-08] MEDS: Meropenem 1gm in NS 55ml IVPB SCH ×2 (08:16→22:01)
--- NOTE | 2019-06-08 11:46 | General Progress Note ---
Assessment/Plan Problem List: (1) Leg pain ICD Codes: M79.606 - Leg pain SNOMED: 66989011 (2) Hypothyroid ICD Codes: E03.9 - Hypothyroid SNOMED: 19407112 (3) UTI (urinary tract infection) ICD Codes: N39.0 - Urinary tract infection, site not specified SNOMED: 44893376, 62157619, 73893727, 442691397 Qualifiers: Qualified Codes: N39.0 - Urinary tract infection, site not specified (4) Hypomagnesemia ICD Codes: E83.42 - Hypomagnesemia SNOMED: 195194763, 21333305, 16054808, 041311627 (5) Chronic wound of extremity SNOMED: 819715933, 40656585, 028235287 Status: stable Assessment/Plan: #Dysuria #Hematuria #Acute UTI #Suspected BPH #Leukocytosis - improving -Continue empiric abx (Ceftraixone / -06/05), (meropenem 06/05 -) -UA + for UTI, f/u urine culture. -BCx ordered per ID (06/05) f/u. -ID consult placed. -Dilaudid for pain. -Continue flomax 0.4 mg qhs, for probable BPH. #Sinus tachycardia EKG with sinus tachycardia. Likely from infection, dehydration. -IV fluids at 75 mL/hr. -Echocardiogram -Check D dimer -Check thyroid function studies -continue telemetry -Hold beta blockers etc #hx of bilateral BKA -Wound care. -Continue weekly wound care clinic f/u on Mondays outpatient. #Insomnia -continue qhs home meds (mirtazapine, remeron). #Hypothyroidism -Continue home synthroid. #Dispo -HH ordered per CM. #DNAR status -noted. Time spent on encounter, 36 minutes, >50% on counseling, coordination of care. Time of note does not relfect time of encounter. Subjective Date patient seen: Jun 08, 2019 Constitutional: Denies: no symptoms, chills, diaphoresis, fever, malaise, weakness, other HEENT: Denies: no symptoms, eye pain, blurred vision, tearing, double vision, ear pain, ear discharge, nose pain, nose congestion, throat pain, throat swelling, mouth pain, mouth swelling, other Cardiovascular: Denies: no symptoms, chest pain, edema, irregular heart rate, lightheadedness, palpitations, syncope, other Respiratory: Denies: no symptoms, cough, orthopnea, shortness of breath, SOB with excertion, SOB at rest, sputum, stridor, wheezing, other Gastrointestinal/Abdominal: Denies: no symptoms, abdomen distended, abdominal pain, black stools, tarry stools, blood in stool, constipated, diarrhea, difficulty swallowing, nausea, poor appetite, poor fluid intake, rectal bleeding , vomiting, other Genitourinary: Denies: no symptoms, burning, discharge, frequency, flank pain, hematuria, incontinence, pain, urgency, other Neurologic/Psychiatric: Denies: no symptoms, anxiety, depressed, emotional problems, headache, numbness, paresthesia, pre-existing deficit, seizure, tingling, tremors, weakness, other Endocrine: Denies: no symptoms, excessive sweating, flushing, intolerance to cold, intolerance to heat, increased hunger, increased thirst, increased urine, unexplained weight gain, unexplained weight loss, other Hematologic/Lymphatic: Denies: no symptoms, anemia, easy bleeding, easy bruising, other Allergies: Coded Allergies: No Known Allergies (Unverified , 01/04/17) Subjective pain persists, but overall feeling better. Objective Last 24 Hour Vital Signs Date Time Temp Pulse Resp B/P (MAP) Pulse Ox O2 Delivery O2 Flow Rate FiO2 06/08/19 09:31 87 20 99 Room Air 21 06/08/19 09:00 Room Air 06/08/19 08:00 97.9 83 20 96/55 (69) 95 06/08/19 04:00 97.5 82 16 99/73 (82) 94 06/08/19 00:00 98.5 83 16 92/74 (80) 92 06/07/19 21:00 Room Air 06/07/19 20:00 98.1 85 17 85/53 (64) 94 06/07/19 19:36 86 18 94 Room Air 21 06/07/19 16:00 98.2 85 20 96/58 (71) 96 06/07/19 12:00 98.0 86 20 96/56 (69) 97 Intake and Output 06/07/19 06/08/19 19:00 07:00 Intake Total 1950 ml 1750 ml Output Total 800 ml 400 ml Balance 1150 ml 1350 ml Intake Oral 1000 ml 1000 ml IV Total 950 ml 750 ml Output Urine Total 800 ml 400 ml # Voids 4 2 # Bowel Movements 1 Laboratory Tests 06/08/19 05:12: White Blood Count 18.4H, Red Blood Count 2.94L, Hemoglobin 9.6L, Hematocrit 27.2L, Mean Corpuscular Volume 93, Mean Corpuscular Hemoglobin 32.7H, Mean Corpuscular Hemoglobin Concent 35.4, Red Cell Distribution Width 13.9, Platelet Count 91L, Mean Platelet Volume 7.4, Neutrophils (%) (Auto) , Lymphocytes (%) ( Auto) , Monocytes (%) (Auto) , Eosinophils (%) (Auto) , Basophils (%) (Auto) , Differential Total Cells Counted 100, Neutrophils % (Manual) 76H, Lymphocytes % (Manual) 9L, Monocytes % (Manual) 2, Eosinophils % (Manual) 2, Basophils % ( Manual) 0, Band Neutrophils 11H, Platelet Estimate DecreasedL, Platelet Morphology Normal, Hypochromasia 1+, Sodium Level 143, Potassium Level 3.7, Chloride Level 112H, Carbon Dioxide Level 19L, Anion Gap 12, Blood Urea Nitrogen 32H, Creatinine 1.0, Estimat Glomerular Filtration Rate > 60, Glucose Level 85, Calcium Level 8.1L, Total Bilirubin 0.7, Aspartate Amino Transf (AST/ SGOT) 37, Alanine Aminotransferase (ALT/SGPT) 31, Alkaline Phosphatase 241H, Total Protein 5.5L, Albumin 1.7L, Globulin 3.8, Albumin/Globulin Ratio 0.4L Height (Feet): 5 Height (Inches): 5.00 Weight (Pounds): 176 General Appearance: no apparent distress, alert Neck: supple Cardiovascular: normal rate, regular rhythm Respiratory/Chest: lungs clear, normal breath sounds Abdomen: non tender, soft Barb Coreas M.D. Jun 08, 2019 11:46
[2019-06-08 12:00] VITALS: BP 90/50
--- NOTE | 2019-06-08 14:23 | Cardiology Progress Note ---
Assessment/Plan Status: stable Assessment/Plan Assessment/Plan Problem List: (1) Leg pain (2) Hypothyroid (3) UTI (urinary tract infection) (4) Hypomagnesemia (5) Chronic wound of extremity (6) Tachycardia/Ectopy/PVCs Tachycardia has improved with fluids and pain control. -IV fluids -Echocardiogram pending -Check D dimer -IV abx per ID/Urology -Check thyroid function studies -continue telemetry -Hold beta blockers -Wound care consult Subjective Cardiovascular: Reports: no symptoms Respiratory: Reports: no symptoms Gastrointestinal/Abdominal: Reports: no symptoms Genitourinary: Reports: no symptoms Subjective No acute events, no fevers, WBC elevated, troponin negative, tachycardia improved with fluids, D dimer pending. Tolerating Abx, pain controlled. Patient does not allow further blood draws and is concerned about being anemic. Objective Last 24 Hour Vital Signs Date Time Temp Pulse Resp B/P (MAP) Pulse Ox O2 Delivery O2 Flow Rate FiO2 06/08/19 12:00 97.0 84 20 90/50 (63) 94 06/08/19 09:31 87 20 99 Room Air 21 06/08/19 09:00 Room Air 06/08/19 08:00 97.9 83 20 96/55 (69) 95 06/08/19 04:00 97.5 82 16 99/73 (82) 94 06/08/19 00:00 98.5 83 16 92/74 (80) 92 06/07/19 21:00 Room Air 06/07/19 20:00 98.1 85 17 85/53 (64) 94 06/07/19 19:36 86 18 94 Room Air 21 06/07/19 16:00 98.2 85 20 96/58 (71) 96 General Appearance: no apparent distress, alert EENT: PERRL/EOMI, normal ENT inspection, TMs normal, pharynx normal Neck: non-tender, normal alignment, supple, normal inspection, no JVD Rhythm: NSR Cardiovascular: normal peripheral pulses, normal rate, regular rhythm Respiratory/Chest: chest wall non-tender, lungs clear, normal breath sounds, no respiratory distress, no accessory muscle use, respiratory distress Abdomen: non tender, soft, no organomegaly, no mass Extremities: normal range of motion, non-tender, normal inspection, no calf tenderness, no swelling Neurologic: qualitative researcher II-XII grossly normal, no motor/sensory deficits Intake and Output 06/07/19 06/08/19 19:00 07:00 Intake Total 1950 ml 1750 ml Output Total 800 ml 400 ml Balance 1150 ml 1350 ml Intake Oral 1000 ml 1000 ml IV Total 950 ml 750 ml Output Urine Total 800 ml 400 ml # Voids 4 2 # Bowel Movements 1 Laboratory Tests Test 06/08/19 05:12 White Blood Count 18.4 K/UL (4.8-10.8) H Red Blood Count 2.94 M/UL (4.70-6.10) L Hemoglobin 9.6 G/DL (14.2-18.0) L Hematocrit 27.2 % (42.0-52.0) L Mean Corpuscular Volume 93 FL (80-99) Mean Corpuscular Hemoglobin 32.7 PG (27.0-31.0) H Mean Corpuscular Hemoglobin Concent 35.4 G/DL (32.0-36.0) Red Cell Distribution Width 13.9 % (11.6-14.8) Platelet Count 91 K/UL (150-450) L Mean Platelet Volume 7.4 FL (6.5-10.1) Neutrophils (%) (Auto) % (45.0-75.0) Lymphocytes (%) (Auto) % (20.0-45.0) Monocytes (%) (Auto) % (1.0-10.0) Eosinophils (%) (Auto) % (0.0-3.0) Basophils (%) (Auto) % (0.0-2.0) Differential Total Cells Counted 100 Neutrophils % (Manual) 76 % (45-75) H Lymphocytes % (Manual) 9 % (20-45) L Monocytes % (Manual) 2 % (1-10) Eosinophils % (Manual) 2 % (0-3) Basophils % (Manual) 0 % (0-2) Band Neutrophils 11 % (0-8) H Platelet Estimate Decreased L Platelet Morphology Normal Hypochromasia 1+ Sodium Level 143 MMOL/L (136-145) Potassium Level 3.7 MMOL/L (3.5-5.1) Chloride Level 112 MMOL/L (98-107) H Carbon Dioxide Level 19 MMOL/L (21-32) L Anion Gap 12 mmol/L (5-15) Blood Urea Nitrogen 32 mg/dL (7-18) H Creatinine 1.0 MG/DL (0.55-1.30) Estimat Glomerular Filtration Rate > 60 mL/min (>60) Glucose Level 85 MG/DL (74-106) Calcium Level 8.1 MG/DL (8.5-10.1) L Total Bilirubin 0.7 MG/DL (0.2-1.0) Aspartate Amino Transf (AST/SGOT) 37 U/L (15-37) Alanine Aminotransferase (ALT/SGPT) 31 U/L (12-78) Alkaline Phosphatase 241 U/L (46-116) H Total Protein 5.5 G/DL (6.4-8.2) L Albumin 1.7 G/DL (3.4-5.0) L Globulin 3.8 g/dL Albumin/Globulin Ratio 0.4 (1.0-2.7) L Emeka Grace MD Jun 08, 2019 14:23
--- NOTE | 2019-06-08 15:13 | NUR ---
CASE MANAGEMENT:REVIEW SI;ESBL E. COLI UTI. CHR WOUND OF RT EXTREMITY. 98.5 84 20 90/50 94% ON RA WBC 18.4 H/H 9.6/27.2 CL 112 BUN 32 CA 8.1 IS;MEROPENEM IV Q12 HRS IVF NS @ 75 ML/HR SYNTHROID PO QD HEPARIN SUBQ Q12 HRS MORPHINE IV Q4 HRS PRN DILAUDID IV Q4 HRS PRN MED SURG STATUS PLAN OF CARE; CONTINUE EMPIRIC ABX F/U URINE CX WOUND CARE DCP;HOME WITH HOME HEALTH
[2019-06-08 16:00] VITALS: BP 97/51
--- NOTE | 2019-06-08 19:15 | NUR ---
HAND-OFF: Report given to AUSTEN Martins.
--- NOTE | 2019-06-08 19:30 | NUR ---
NURSE NOTES: Received pt in bed, AAO x4. RA. No s/s of acute distress. c/o of pain on knee- knows when he can receive next pain medication. IV on LISA patent, running NS @ 75 ml/hr. Side rails x 3. Bed in the lowest, locked position, and bed alarm on. Call light within reach. Will continue to monitor
[2019-06-08 20:00] VITALS: BP 106/59
--- NOTE | 2019-06-08 20:00 | NUR ---
NURSE NOTES: Noted sacral discoloration, possible dti, patient stated he came in with it. It is not open at this time, there is dark brown which may be unstageable or due to bruising- low platelets. There is bruising throughout the body
--- NOTE | 2019-06-08 20:15 | Progress Note ---
DATE: 06/08/2019 SUBJECTIVE: The patient is the same. Mental status is unchanged since previous encounter. Compliant with medication. No behavior issues. Complaining of pain. Depressed, anhedonia, worthlessness. MENTAL STATUS EXAMINATION: The patient is alert and oriented times to self, place, situation, and date. Mood is dysphoric. Affect is constricted, congruent with mood. Thought process is concrete. Thought content, no suicidal or homicidal ideation. Cognition is intact. Insight and judgment is fair. ASSESSMENT: Major depressive disorder. PLAN: 1. Remeron 15 mg at bedtime. 2. Provide the patient with reality orientation and supportive therapy. Yoon Vargas M.D. DR: PAYAM JOB#: [id number] CC:
[2019-06-08] MEDS: Tamsulosin 0.4mg cap ORAL SCH (20:29)
[2019-06-08] MEDS: Sennosides 8.6mg tab ORAL SCH (20:30)
[2019-06-09] VITALS: BP 110/56
[2019-06-09] MEDS: HYDROmorphone 1mg/ml Carpuject IVP PRN ×5 (00:36→20:19)
[2019-06-09 04:00] VITALS: BP 119/58
[2019-06-09 08:00] VITALS: BP 116/62
--- NOTE | 2019-06-09 08:20 | NUR ---
HAND-OFF: Report given to AUSTEN Rios.
--- NOTE | 2019-06-09 08:22 | NUR ---
NURSE NOTES: received report from AUSTEN Martins. patient in bed. A&Ox4, verbally responsive. no respiratory distress noted. BKA. IV on LISA running NS@75/hr. contact isolation. PPE at all times. pain management. bed in the lowest position and locked. call light within reach. will continue to provide plan of care.
[2019-06-09] MEDS: Heparin 5000 units/ml inj SUBQ SCH (08:59)
[2019-06-09] MEDS: Docusate 100mg cap ORAL SCH ×2 (09:01→20:27)
[2019-06-09] MEDS: Meropenem 1gm in NS 55ml IVPB SCH ×2 (09:02→17:13)
[2019-06-09 11:00] LABS: ANION GAP 12 mmol/L (5-15); BLOOD UREA NITROGEN 22 mg/dL (7-18); CALCIUM 8.5 MG/DL (8.5-10.1); CARBON DIOXIDE 19 MMOL/L (21-32); CHLORIDE 110 MMOL/L (98-107); CREATININE 0.8 MG/DL (0.55-1.30); POTASSIUM 4.2 MMOL/L (3.5-5.1); SODIUM 141 MMOL/L (136-145)
[2019-06-09] MEDS ORDERED: Omnipaque 350 100ml vial INJ PRN (11:00)
[2019-06-09] MEDS ORDERED: Calcium Carbonate 650mg Tab ORAL SCH (11:00)
[2019-06-09 11:08] LABS: HEMATOCRIT 28.5 % (42.0-52.0); HEMOGLOBIN 9.9 G/DL (14.2-18.0); MEAN CORPUSCULAR VOLUME 94 FL (80-99); PLATELET COUNT 93 K/UL (150-450); RED BLOOD COUNT 3.05 M/UL (4.70-6.10); RED CELL DISTRIBUTION WIDTH 14.4 % (11.6-14.8); WHITE BLOOD COUNT 11.5 K/UL (4.8-10.8)
[2019-06-09] MEDS ORDERED: Tubing IV Secondary IV ONE (11:56)
[2019-06-09 12:00] VITALS: BP 117/69
--- NOTE | 2019-06-09 13:12 | Diagnostic Imaging Report ---
EXAM: CT Chest With Intravenous Contrast CLINICAL HISTORY: PE TECHNIQUE: Axial computed tomography images of the chest with intravenous contrast. CTDI is 17.2 mGy and DLP is 54.6 mGy-cm. One or more of the following dose reduction techniques were used: automated exposure control, adjustment of the mA and/or kV according to patient size, use of iterative reconstruction technique. COMPARISON: No relevant prior studies available. FINDINGS: Lungs: No central pulmonary embolus. Consolidative atelectasis in the lower lung chong Pleural space: Trace bilateral pleural effusions. Heart: No cardiomegaly. No pericardial effusion. Mediastinum: Small hiatal hernia. Bones/joints: Soft tissue calcifications or extravasated contrast about the right shoulder area as well Soft tissues: Extravasation of contrast overlying the left chest wall/shoulder area. Soft tissue calcifications. Vasculature: Ectatic ascending aorta, roughly 3.8 cm. Lymph nodes: No enlarged lymph nodes. Gallbladder and bile ducts: Cholelithiasis. IMPRESSION: 1. No central pulmonary embolus. 2. Cholelithiasis. 3. Extravasation of contrast overlying the left chest wall/shoulder area. <MYCVCSECTION> Communications: 06/09/19 13:31 Verify Receipt with Nurse Verified receipt with Salvatore RN on 06/08 13:31 (-08:00)
--- NOTE | 2019-06-09 13:25 | General Progress Note ---
Assessment/Plan Status: stable Assessment/Plan: #Dysuria #Hematuria #Acute UTI #Suspected BPH #Leukocytosis - improving -Continue empiric abx (Ceftraixone 06/03 -06/05), (meropenem 06/05 -) -UA + for UTI, f/u urine culture. -BCx (06/05) - e. coli -ID following -Dilaudid for pain. -Continue flomax 0.4 mg qhs, for probable BPH. #Right knee pain -XR of femur w/evidence of chronic osteo -Obtain MRI -cont. pain management -d/w ID #Sinus tachycardia - improved EKG with sinus tachycardia. Likely from infection, dehydration. -IV fluids at 75 mL/hr. -Echocardiogram pending -D dimer elevated -STAT CT angio chest ordered, reviewed and negative for PE -Check thyroid function studies -continue telemetry -Hold beta blockers etc #Thrombocytopenia -d/c heparin DVT PPx -check HIT panel -no signs of bleeding at this time, cont. to monitor #hx of bilateral BKA -Wound care. -Continue weekly wound care clinic f/u on Mondays outpatient. #Insomnia -continue qhs home meds (mirtazapine, remeron). #Hypothyroidism -Continue home synthroid. #Dispo -HH ordered per CM. #DNAR status -noted. Time spent on encounter, 35 minutes, >50% on counseling, coordination of care, additional 45 mins spent on chart review. Time of note does not reflect time of encounter. Subjective Constitutional: Denies: no symptoms, chills, diaphoresis, fever, malaise, weakness, other HEENT: Denies: no symptoms, eye pain, blurred vision, tearing, double vision, ear pain, ear discharge, nose pain, nose congestion, throat pain, throat swelling, mouth pain, mouth swelling, other Cardiovascular: Denies: no symptoms, chest pain, edema, irregular heart rate, lightheadedness, palpitations, syncope, other Respiratory: Denies: no symptoms, cough, orthopnea, shortness of breath, SOB with excertion, SOB at rest, sputum, stridor, wheezing, other Gastrointestinal/Abdominal: Denies: no symptoms, abdomen distended, abdominal pain, black stools, tarry stools, blood in stool, constipated, diarrhea, difficulty swallowing, nausea, poor appetite, poor fluid intake, rectal bleeding , vomiting, other Genitourinary: Denies: no symptoms, burning, discharge, frequency, flank pain, hematuria, incontinence, pain, urgency, other Neurologic/Psychiatric: Denies: no symptoms, anxiety, depressed, emotional problems, headache, numbness, paresthesia, pre-existing deficit, seizure, tingling, tremors, weakness, other Endocrine: Denies: no symptoms, excessive sweating, flushing, intolerance to cold, intolerance to heat, increased hunger, increased thirst, increased urine, unexplained weight gain, unexplained weight loss, other Hematologic/Lymphatic: Denies: no symptoms, anemia, easy bleeding, easy bruising, other Allergies: Coded Allergies: No Known Allergies (Unverified , 01/04/17) Subjective Pt notes RLE stump pain, states it is off and on. Denies any trauma, states pain is chronic and has been seeing a wound physician o/p. Denies F/C, SOB, palpitations, diaphorsis. Objective Last 24 Hour Vital Signs Date Time Temp Pulse Resp B/P (MAP) Pulse Ox O2 Delivery O2 Flow Rate FiO2 06/09/19 12:00 97.8 75 20 117/69 (85) 96 06/09/19 10:29 Room Air 06/09/19 08:00 98.9 78 20 116/62 (80) 95 06/09/19 07:03 82 20 95 Room Air 21 06/09/19 04:00 97.8 86 20 119/58 (78) 98 06/09/19 00:00 98.0 80 19 110/56 (74) 97 06/08/19 21:01 Room Air 06/08/19 21:01 Room Air 06/08/19 21:00 Room Air 06/08/19 20:00 98.3 83 20 106/59 (75) 96 06/08/19 19:53 83 20 96 Room Air 21 06/08/19 16:00 98.5 83 20 97/51 (66) 94 Intake and Output 06/08/19 06/09/19 19:00 07:00 Intake Total 960 ml Output Total 1600 ml 1100 ml Balance -640 ml -1100 ml Intake Oral 960 ml Output Urine Total 1600 ml 1100 ml # Voids 3 # Bowel Movements 1 Laboratory Tests 06/09/19 07:15: Sodium Level 141, Potassium Level 4.2, Chloride Level 110H, Carbon Dioxide Level 19L, Anion Gap 12, Blood Urea Nitrogen 22H, Creatinine 0.8, Estimat Glomerular Filtration Rate > 60, Glucose Level 87, Calcium Level 8.5 06/09/19 09:10: White Blood Count 11.5H, Red Blood Count 3.05L, Hemoglobin 9.9L, Hematocrit 28.5L, Mean Corpuscular Volume 94, Mean Corpuscular Hemoglobin 32.5H, Mean Corpuscular Hemoglobin Concent 34.7, Red Cell Distribution Width 14.4, Platelet Count 93L, Mean Platelet Volume 8.0, Neutrophils (%) (Auto) , Lymphocytes (%) ( Auto) , Monocytes (%) (Auto) , Eosinophils (%) (Auto) , Basophils (%) (Auto) , Differential Total Cells Counted 100, Neutrophils % (Manual) 85H, Lymphocytes % (Manual) 9L, Monocytes % (Manual) 6, Eosinophils % (Manual) 0, Basophils % ( Manual) 0, Band Neutrophils 0, Platelet Estimate DecreasedL, Platelet Morphology Normal, Anisocytosis 1+, D-Dimer 2.16H, Heparin-PF4 Antibody Screen [ Pending] Height (Feet): 5 Height (Inches): 5.00 Weight (Pounds): 176 Objective General Appearance: no apparent distress, alert, sitting in bed comfortably Neck: supple Cardiovascular: normal rate, regular rhythm Respiratory/Chest: lungs clear, normal breath sounds Abdomen: non tender, soft Ext: No edema, b/l BKA, right knee in bandage, no erythema or drainage noted Tereza Ang M.D. Jun 09, 2019 13:25
[2019-06-09] MEDS ORDERED: Gadavist 7.5mMol/7.5ml vial IV PRN (14:00)
--- NOTE | 2019-06-09 14:24 | NUR ---
NURSE NOTES: Dr. Simeon Ang dc heparin and ordered to start lovenox 40mg sq daily for DVT PPX. Lovenox no needs parameter. ok to administer to patient with low platelet level. order noted and carried out.
--- NOTE | 2019-06-09 14:57 | Infectious Diseases Prog Note ---
Assessment/Plan Assessment/Plan ASSESSMENT AND PLAN: 1. esbl e.coli uti/pyelonephritis, sepsis, leukocytosis, fevers - meropenem - day # 4 - monitor labs - leukocytosis improved - clinically slowly improving, fevers resolved, still with urinary symptoms - will repeat urinalysis and culture - d/w Dr. Ang and patients 2. Right leg/stump wound, right leg pain, ? femur osteomyelitis - + right leg pain, elevated AP, d/w Dr. Ang, will get RLE MRI 3. Bilateral BKA. 4. Wound care protocol. 5. BPH. 6. Urinary symptoms. 7. Hypothyroidism. 8. Leg pain. 9. Insomnia. 10. Continue treatment per primary consultants. 11. No known allergies. 12. Social history is negative. 13. Family history is noncontributory. 14. MAR was noted. 15. Case discussed with RN. 16. Case discussed with Dr. Coreas. Subjective Constitutional: Denies: fever HEENT: Denies: congestion Respiratory: Denies: shortness of breath Cardiovascular: Denies: chest pain Gastrointestinal/Abdominal: Denies: nausea, vomiting, diarrhea Genitourinary: Reports: dysuria, frequency, other - no plascencia Neurologic: Denies: headache Psychiatric: Denies: depression Skin: Denies: rash Hematologic: Denies: bleeding Musculoskeletal: Denies: pain Allergies: Coded Allergies: No Known Allergies (Unverified , 01/04/17) Objective Vital Signs Last 24 Hour Vital Signs Date Time Temp Pulse Resp B/P (MAP) Pulse Ox O2 Delivery O2 Flow Rate FiO2 06/09/19 12:00 97.8 75 20 117/69 (85) 96 06/09/19 10:29 Room Air 06/09/19 08:00 98.9 78 20 116/62 (80) 95 06/09/19 07:03 82 20 95 Room Air 21 06/09/19 04:00 97.8 86 20 119/58 (78) 98 06/09/19 00:00 98.0 80 19 110/56 (74) 97 06/08/19 21:01 Room Air 06/08/19 21:01 Room Air 06/08/19 21:00 Room Air 06/08/19 20:00 98.3 83 20 106/59 (75) 96 06/08/19 19:53 83 20 96 Room Air 21 06/08/19 16:00 98.5 83 20 97/51 (66) 94 Height (Feet): 5 Height (Inches): 5.00 Weight (Pounds): 176 General Appearance: no acute distress HEENT: normocephalic, atraumatic, anicteric, mucous membranes moist Respiratory/Chest: lungs clear, normal breath sounds, no respiratory distress, no accessory muscle use Cardiovascular: normal rate, regular rhythm, no gallop/murmur, no JVD Abdomen: normal bowel sounds, soft, non tender, no organomegaly, non distended Genitourinary: other - no plascencia, no cva pain Extremities: other - bilateral bka, right stump wound covered Skin: no rash, no ulcers 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 Findings: Lung volumes are low. Heart is enlarged. Interstitium is prominent but no overt CHF seen. Bones are osteopenic. IMPRESSION: No significant change at this time. Microbiology Date/Time Source Procedure Growth Status 06/04/19 10:45 Urine,Clean Catch Urine Culture - Final Escherichia Coli - Esbl Complete Laboratory Tests Test 06/09/19 07:15 06/09/19 09:10 Sodium Level 141 MMOL/L (136-145) Potassium Level 4.2 MMOL/L (3.5-5.1) Chloride Level 110 MMOL/L (98-107) H Carbon Dioxide Level 19 MMOL/L (21-32) L Anion Gap 12 mmol/L (5-15) Blood Urea Nitrogen 22 mg/dL (7-18) H Creatinine 0.8 MG/DL (0.55-1.30) Estimat Glomerular Filtration Rate > 60 mL/min (>60) Glucose Level 87 MG/DL (74-106) Calcium Level 8.5 MG/DL (8.5-10.1) White Blood Count 11.5 K/UL (4.8-10.8) H Red Blood Count 3.05 M/UL (4.70-6.10) L Hemoglobin 9.9 G/DL (14.2-18.0) L Hematocrit 28.5 % (42.0-52.0) L Mean Corpuscular Volume 94 FL (80-99) Mean Corpuscular Hemoglobin 32.5 PG (27.0-31.0) H Mean Corpuscular Hemoglobin Concent 34.7 G/DL (32.0-36.0) Red Cell Distribution Width 14.4 % (11.6-14.8) Platelet Count 93 K/UL (150-450) L Mean Platelet Volume 8.0 FL (6.5-10.1) Neutrophils (%) (Auto) % (45.0-75.0) Lymphocytes (%) (Auto) % (20.0-45.0) Monocytes (%) (Auto) % (1.0-10.0) Eosinophils (%) (Auto) % (0.0-3.0) Basophils (%) (Auto) % (0.0-2.0) Differential Total Cells Counted 100 Neutrophils % (Manual) 85 % (45-75) H Lymphocytes % (Manual) 9 % (20-45) L Monocytes % (Manual) 6 % (1-10) Eosinophils % (Manual) 0 % (0-3) Basophils % (Manual) 0 % (0-2) Band Neutrophils 0 % (0-8) Platelet Estimate Decreased L Platelet Morphology Normal Anisocytosis 1+ D-Dimer 2.16 mg/L FEU (0.00-0.49) H Heparin-PF4 Antibody Screen Pending Current Medications Medications (Trade) Dose Ordered Sig/Trever Route PRN Reason Start Time Stop Time Status Last Admin Dose Admin Acetaminophen (Tylenol) 650 mg Q4H PRN ORAL fever 06/04/19 16:55 07/04/19 16:54 Acetaminophen (Tylenol) 650 mg Q4H PRN ORAL Mild Pain (Pain Scale 1-3) 06/04/19 16:56 07/04/19 16:55 06/05/19 12:21 Albuterol/ Ipratropium (Albuterol/ Ipratropium) 3 ml Q4H PRN HHN Shortness of Breath 06/04/19 16:53 06/09/19 16:52 Bisacodyl (Dulcolax) 10 mg HSPRN PRN RECTAL Constipation 06/04/19 21:00 07/04/19 20:59 Dextrose (Dextrose 50%) 25 ml Q30M PRN IV Hypoglycemia 06/04/19 16:55 07/04/19 16:54 Dextrose (Dextrose 50%) 50 ml Q30M PRN IV Hypoglycemia 06/04/19 16:55 07/04/19 16:54 Diphenhydramine HCl (Benadryl) 25 mg Q6H PRN ORAL Itching/Pruritis 06/04/19 16:54 07/04/19 16:53 Docusate Sodium (Colace) 100 mg EVERY 12 HOURS ORAL 06/04/19 21:00 07/04/19 20:59 06/09/19 09:01 Enoxaparin Sodium (Lovenox) 40 mg DAILY SUBQ 06/10/19 09:00 07/10/19 08:59 Gadobutrol (Gadavist) 7.5 mmol NOW PRN IV Radiology Procedure 06/09/19 14:00 06/13/19 13:51 Hydromorphone HCl (Dilaudid) 1 mg Q4H PRN IVP For Severe Pain 7-10 06/04/19 17:56 06/11/19 17:55 06/09/19 11:17 Iohexol (Omnipaque 350 100ml) 100 ml NOW PRN INJ Radiology Procedure 06/09/19 11:00 06/11/19 10:59 Levothyroxine Sodium (Synthroid) 200 mcg DAILY@0630 ORAL 06/05/19 06:30 07/05/19 06:29 06/09/19 07:02 Meropenem 1 gm/ Sodium Chloride 55 ml @ 110 mls/hr Q12HR IVPB 06/07/19 21:00 06/12/19 20:59 06/09/19 09:02 Mirtazapine (Remeron) 15 mg BEDTIME ORAL 06/04/19 21:00 07/04/19 20:59 06/08/19 20:29 Morphine Sulfate (Morphine Sulfate) 1 mg Q4H PRN IVP Moderat Pain (Pain Scale 4-6) 06/04/19 18:00 06/11/19 16:54 Ondansetron HCl (Zofran) 4 mg Q6H PRN IVP Nausea & Vomiting 06/04/19 16:54 07/04/19 16:53 Sennosides (Senokot) 17.2 mg BEDTIME ORAL 06/04/19 21:00 07/04/19 20:59 06/08/19 20:30 Sodium Chloride 1,000 ml @ 75 mls/hr [id number] IV 06/05/19 12:30 07/05/19 12:29 06/09/19 11:16 Tamsulosin HCl (Flomax) 0.4 mg BEDTIME ORAL 06/04/19 21:00 07/04/19 20:59 06/08/19 20:29 Temazepam (RestoriL) 7.5 mg QHS PRN ORAL Insomnia 06/04/19 21:00 06/11/19 20:59 06/07/19 21:15 Celine Yi MD Jun 09, 2019 14:57
--- NOTE | 2019-06-09 15:38 | NUR ---
NURSE NOTES: received call from radiology. MRI machine is broken. the procedure will be done on Tuesday06/11/19.
[2019-06-09 15:43] LABS: APPEARANCE,URINE CLEAR; BILIRUBIN, URINE NEGATIVE (NEGATIVE); COLOR,URINE PALE YELLOW; GLUCOSE, URINE (UA) NEGATIVE (NEGATIVE); KETONES,URINE NEGATIVE (NEGATIVE); LEUKOCYTE ESTERASE ,URINE 1+ (NEGATIVE); NITRITE,URINE NEGATIVE (NEGATIVE); PH,URINE 5 (4.5-8.0); PROTEIN,URINE NEGATIVE (NEGATIVE); UROBILINOGEN,URINE NORMAL MG/DL (0.0-1.0)
[2019-06-09 16:00] VITALS: BP 103/56
--- NOTE | 2019-06-09 19:09 | NUR ---
HAND-OFF: Report given to AUSTEN Rose.
--- NOTE | 2019-06-09 19:52 | NUR ---
NURSE NOTES: Received patient in bed, awake, alert, oriented, IV site is clean dry and intact, able to make his needs known, no acute distress noted. Call light is within reach, bed is lowered, locked, alarm is on. Will continue to monitor for comfort and safety.
[2019-06-09 20:00] VITALS: BP 129/60
[2019-06-09] MEDS: Tamsulosin 0.4mg cap ORAL SCH (20:26)
[2019-06-09] MEDS: Sennosides 8.6mg tab ORAL SCH (20:27)
[2019-06-10] VITALS: BP 118/64
[2019-06-10] MEDS: Meropenem 1gm in NS 55ml IVPB SCH ×3 (00:39→16:48)
[2019-06-10 04:00] VITALS: BP 132/74
[2019-06-10] MEDS: HYDROmorphone 1mg/ml Carpuject IVP PRN ×6 (04:21→20:38)
--- NOTE | 2019-06-10 07:37 | NUR ---
NURSE NOTES: Patient in bed. A&Ox4, verbally responsive. no respiratory distress noted. no c/o pain at this time. IV on LFA intact. AV shunt for HD on Right upper arm. dressing intact. + bruit and +thrill. HD scheduled today by CLAUDINE. pace maker on left upper chest. contact isolation. PPE at all times. bed in the lowest position and locked. call light within reach. will continue to provide plan of care. Addendum: 06/10/19 at 0743 by SERGEY LAGUNA RN Wrong patient entry
--- NOTE | 2019-06-10 07:38 | NUR ---
HAND-OFF: Report given to Blanca BOYCE.
--- NOTE | 2019-06-10 07:45 | NUR ---
NURSE NOTES: received report from AUSTEN Rose. patient in bed. A&ox4, verbally responsive, no respiratory distress noted. C/O pain on both leg 10/11. IV on left upper arm running NS@75/hr. elevate both BKA with pillow. the bed in the lowest position and locked. call light within reach. will continue to provide plan of care
[2019-06-10 08:00] VITALS: BP 106/53
[2019-06-10] MEDS: Docusate 100mg cap ORAL SCH ×2 (08:28→20:39)
[2019-06-10] MEDS: Enoxaparin 40mg Inj SUBQ SCH ×2 (08:30→09:00)
--- NOTE | 2019-06-10 08:30 | NUR ---
NURSE NOTES: patient refused lovenox sq injection for DVT PPX. The patient said that he has been poked by needles too many times. RN explained risks and benefits. Offered 3times. patient refused.
[2019-06-10 12:00] VITALS: BP 110/59
--- NOTE | 2019-06-10 13:50 | General Progress Note ---
Assessment/Plan Status: stable Assessment/Plan: #Dysuria #Hematuria #Acute UTI #Leukocytosis - downtrending #Suspected BPH -Continue empiric abx (Ceftraixone 06/03 -06/05), (meropenem 06/05 -) -UA + for UTI, f/u urine culture. -BCx (06/05) - e. coli -ID following -Dilaudid for pain. -Continue flomax 0.4 mg qhs, for probable BPH. #right BKA stump pain #hx of bilateral BKA -cont. Wound care. -Continue weekly wound care clinic f/u on Mondays outpatient. -XR of femur w/evidence of chronic osteo -MRI ordered, pending for tuesday -cont. pain management -d/w ID #Thrombocytopenia plts dropped from 200 on admission to 91 on 06/08 -d/c heparin DVT PPx, on lovenox -HIT panel pending -no signs of bleeding at this time, cont. to monitor #Sinus tachycardia - improved EKG with sinus tachycardia. Likely from infection, dehydration. -IV fluids at 75 mL/hr. -Echocardiogram pending -D dimer elevated -CT angio chest ordered, reviewed and negative for PE -thyroid function -continue telemetry -Hold beta blockers etc #Insomnia -continue qhs home meds (mirtazapine, remeron). #Hypothyroidism -Continue home synthroid. #Dispo -HH ordered per CM. #DNAR status -noted. DVT PPX - lovenox Time spent on encounter, 35 minutes, >50% on counseling, coordination of care. Time of note does not reflect time of encounter. Subjective Allergies: Coded Allergies: No Known Allergies (Unverified , 01/04/17) Subjective Pt states RLE stump pain improved today. Notes continued dysuria, denies F/C, CP , SOB, palpitations, diaphoresis. Objective Last 24 Hour Vital Signs Date Time Temp Pulse Resp B/P (MAP) Pulse Ox O2 Delivery O2 Flow Rate FiO2 06/10/19 12:00 98.6 80 18 110/59 (76) 96 06/10/19 09:00 Room Air 06/10/19 08:00 97.5 77 19 106/53 (70) 95 06/10/19 04:52 98.2 06/10/19 04:00 97.8 82 22 132/74 (93) 98 3/8/20 00:00 98.2 86 19 118/64 (82) 98 06/09/19 21:17 Room Air 06/09/19 20:05 79 20 93 Room Air 21 06/09/19 20:00 98.7 80 18 129/60 (83) 98 06/09/19 16:00 99.0 81 20 103/56 (72) 94 Intake and Output 06/09/19 06/10/19 19:00 07:00 Intake Total 1855 ml Output Total 1000 ml 1100 ml Balance 855 ml -1100 ml Intake Oral 960 ml IV Total 895 ml Output Urine Total 1000 ml 1100 ml # Bowel Movements 1 Laboratory Tests 06/09/19 15:30: Urine Color Pale yellow, Urine Appearance Clear, Urine pH 5, Urine Specific [place] 1.005, Urine Protein Negative, Urine Glucose (UA) Negative, Urine Ketones Negative, Urine Blood 4+H, Urine Nitrite Negative, Urine Bilirubin Negative, Urine Urobilinogen Normal, Urine Leukocyte Esterase 1+H, Urine RBC 2- 4H, Urine WBC 20-30H, Urine Squamous Epithelial Cells Occasional, Urine Bacteria Occasional Height (Feet): 5 Height (Inches): 5.00 Weight (Pounds): 176 Objective General Appearance: no apparent distress, alert, sitting in bed comfortably Neck: supple Cardiovascular: normal rate, regular rhythm Respiratory/Chest: lungs clear, normal breath sounds Abdomen: non tender, soft Ext: No edema, b/l BKA, right knee in bandage, no erythema or drainage noted Tereza Ang M.D. Jun 10, 2019 13:50
[2019-06-10 16:00] VITALS: BP 119/69
--- NOTE | 2019-06-10 18:56 | NUR ---
HAND-OFF: Report given to AUSTEN Rose.
--- NOTE | 2019-06-10 19:26 | Cardiology Progress Note ---
Assessment/Plan Status: stable Assessment/Plan Assessment/Plan Problem List: (1) Leg pain (2) Hypothyroid (3) UTI (urinary tract infection) (4) Hypomagnesemia (5) Chronic wound of extremity (6) Tachycardia/Ectopy/PVCs Tachycardia has improved with fluids and pain control. -IV fluids -Echocardiogram pending -Check D dimer -> elevated --> CTA negative for PE -IV abx per ID/Urology -Check thyroid function studies -continue telemetry -Hold beta blockers -Wound care consult Subjective Cardiovascular: Reports: no symptoms Respiratory: Reports: no symptoms Gastrointestinal/Abdominal: Reports: no symptoms Genitourinary: Reports: no symptoms Subjective No acute events, no fevers, WBC elevated, troponin negative, tachycardia improved with fluids, D dimer elevated, CTA negative for PE, thyroid function pending. Tolerating Abx, pain controlled. Patient does not allow further blood draws and is concerned about being anemic, no signs of bleeding, on Lovenox Objective Last 24 Hour Vital Signs Date Time Temp Pulse Resp B/P (MAP) Pulse Ox O2 Delivery O2 Flow Rate FiO2 06/10/19 16:00 98.0 81 18 119/69 (86) 98 06/10/19 12:00 98.6 80 18 110/59 (76) 96 06/10/19 09:00 Room Air 06/10/19 08:00 97.5 77 19 106/53 (70) 95 06/10/19 04:52 98.2 06/10/19 04:00 97.8 82 22 132/74 (93) 98 06/10/19 00:00 98.2 86 19 118/64 (82) 98 06/09/19 21:17 Room Air 06/09/19 20:05 79 20 93 Room Air 21 06/09/19 20:00 98.7 80 18 129/60 (83) 98 General Appearance: no apparent distress, alert EENT: PERRL/EOMI, normal ENT inspection, TMs normal, pharynx normal Neck: non-tender, normal alignment, supple, normal inspection, no JVD Rhythm: NSR Cardiovascular: normal peripheral pulses, normal rate, regular rhythm Respiratory/Chest: chest wall non-tender, lungs clear, normal breath sounds, no respiratory distress, no accessory muscle use Abdomen: normal bowel sounds, non tender, soft, no organomegaly Extremities: normal range of motion, non-tender, normal inspection, no calf tenderness, no swelling 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
--- NOTE | 2019-06-10 19:32 | NUR ---
NURSE NOTES: Received patient in bed, alert, oriented, IV site is clean dry and intact, no acute distress noted, call light is within the reach, bed is lowered, locked, alarm is on, will continue to monitor for comfort and safety.
[2019-06-10 20:00] VITALS: BP 123/62
[2019-06-10] MEDS: Sennosides 8.6mg tab ORAL SCH (20:38)
[2019-06-10] MEDS: Tamsulosin 0.4mg cap ORAL SCH (20:38)
[2019-06-11] VITALS: BP 118/70
[2019-06-11] MEDS: HYDROmorphone 1mg/ml Carpuject IVP PRN ×5 (01:58→21:49)
[2019-06-11 04:00] VITALS: BP 120/70
--- NOTE | 2019-06-11 07:10 | NUR ---
NURSE NOTES: patient is in the bed asleep. respiration is even ad unlabored on room air. noted with 22 gauge IV line on LISA. site is intact. no bleeding, swelling, and coolness noted on site. Denies any bladder pain and discomfort. bed alarm on, bed is in lock position. placed call light within reach. No acute distress noted on patient at this time.
--- NOTE | 2019-06-11 07:36 | NUR ---
HAND-OFF: Report given to Fidel BOYCE.
[2019-06-11 08:00] VITALS: BP 97/52
[2019-06-11] MEDS: Meropenem 1gm in NS 55ml IVPB SCH ×4 (08:58→18:06)
[2019-06-11] MEDS: Enoxaparin 40mg Inj SUBQ SCH (09:00)
[2019-06-11] MEDS: Docusate 100mg cap ORAL SCH ×2 (09:00→20:16)
--- NOTE | 2019-06-11 09:51 | Consultation ---
History of Present Illness General Date patient seen: Jun 11, 2019 Time patient seen: 09:44 Chief Complaint: General Complaint Reason for Consultation: B/L LE Wounds Present Illness HPI Patient known to me from outpatient wound center. Was admitted to [facility] last week with UTI. He has chronic nonhealing bka stump wounds. During hospitalization he had spike in WBC up to 34k two days ago and now down to 11k. He is being followed by ID. He is receiving alginate to the wounds as he was when he was at the wound center. Allergies: Coded Allergies: No Known Allergies (Unverified , 01/04/17) Medication History Scheduled Levofloxacin* (Levaquin*), 250 MG ORAL DAILY, (Reported) Levothyroxine Sodium* (Synthroid*), 200 MCG ORAL DAILY, (Reported) Mirtazapine* (Remeron*), 15 MG ORAL BEDTIME, (Reported) Omeprazole (Omeprazole), 40 MG ORAL DAILY, (Reported) Sennosides (Senna Laxative), 17.2 MG PO BEDTIME, (Reported) Temazepam (Restoril*), 45 MG ORAL BEDTIME, (Reported) Trimethoprim/Sulfamethoxazole 160/800* (Bactrim Ds Tablet*), 1 TAB ORAL TWICE A DAY, (Reported) Vancomycin/Water For Inj (Vancomycin 1.5 Gram/300 ml Bag), 1.5 GM IV DAILY, ( Reported) Scheduled PRN Acetaminophen* (Acetaminophen 325MG Tablet*), 650 MG ORAL Q4H PRN for Mild Pain/ Temp > 100.5, (Reported) Acetaminophen* (Acetaminophen Extra Strength*), 500 MG ORAL Q8HR PRN for For Pain, (Reported) Bisacodyl (Bisacodyl), 10 MG RC DAILY PRN for Constipation, (Reported) Hydromorphone HCl/Pf (Dilaudid 2 mg/ml Syringe), 2 MG IJ EVERY 3 HOURS PRN for Severe Pain (Pain Scale 7-10), (Reported) Magnesium Hydroxide* (Milk Of Magnesia*), 30 ML ORAL DAILY PRN for Constipation, (Reported) [Mylanta Ds Liq], 10 ML PO Q4HR PRN for INDIGESTION, (Reported) Patient History History Provided By: Patient, Medical Record Healthcare decision maker Resuscitation status Do Not Resuscitate Advanced Directive on File Past Medical/Surgical History Past Medical/Surgical History: (1) UTI (urinary tract infection) (2) Anemia (3) Infection of amputation stump, right lower extremity (4) Leg pain Review of Systems Constitutional: Reports: no symptoms Eye: Reports: no symptoms ENT: Denies: no symptoms, see HPI, ear pain, ear discharge, nose pain, nose congestion, throat pain, throat swelling, mouth pain, hearing loss, nasal discharge, other Respiratory: Denies: no symptoms, see HPI, cough, orthopnea, shortness of breath, stridor, wheezing, SMITH, sputum, other Cardiovascular: Denies: no symptoms, see HPI, chest pain, edema, palpitations, syncope, PND, other Gastrointestinal: Denies: no symptoms, see HPI, abdominal pain, constipation, diarrhea, nausea, vomiting, melena, hematemesis, other Skin: Reports: see HPI Psychiatric: Denies: no symptoms, see HPI, prior hx, anxiety, depressed feelings, emotional problems, SI, HI, hallucinations, other Hematologic/Lymphatic: Reports: anemia Physical Exam General Appearance: no apparent distress, alert Lines, tubes and drains: peripheral HEENT: normocephalic Respiratory/Chest: no respiratory distress Abdomen: soft Extremities: normal range of motion, other - Some tenderness at the right knee Skin Exam: other - Right bka ulcer with fibrotic debris and slough at thebase. LLE ulcer with hypergranulation tissue at the base. No erythema or warmth in either LE. No purulent drainage. Neurologic: alert Musculoskeletal: normal muscle bulk Last 24 Hour Vital Signs Date Time Temp Pulse Resp B/P (MAP) Pulse Ox O2 Delivery O2 Flow Rate FiO2 06/11/19 07:35 98.0 06/11/19 04:00 98.0 84 19 120/70 (87) 98 06/11/19 00:00 98.5 82 19 118/70 (86) 95 06/10/19 21:20 Room Air 06/10/19 20:00 98.4 87 20 123/62 (82) 98 06/10/19 16:00 98.0 81 18 119/69 (86) 98 06/10/19 12:00 98.6 80 18 110/59 (76) 96 Intake and Output 06/10/19 06/11/19 18:59 06:59 Intake Total 2095 ml Balance 2095 ml IV Total 895 ml Other 1200 ml Height (Feet): 5 Height (Inches): 5.00 Weight (Pounds): 176 Medications Current Medications Medications (Trade) Dose Ordered Sig/Trever Route PRN Reason Start Time Stop Time Status Last Admin Dose Admin Acetaminophen (Tylenol) 650 mg Q4H PRN ORAL fever 06/04/19 16:55 07/04/19 16:54 Acetaminophen (Tylenol) 650 mg Q4H PRN ORAL Mild Pain (Pain Scale 1-3) 06/04/19 16:56 07/04/19 16:55 06/05/19 12:21 Bisacodyl (Dulcolax) 10 mg HSPRN PRN RECTAL Constipation 06/04/19 21:00 07/04/19 20:59 Dextrose (Dextrose 50%) 25 ml Q30M PRN IV Hypoglycemia 06/04/19 16:55 07/04/19 16:54 Dextrose (Dextrose 50%) 50 ml Q30M PRN IV Hypoglycemia 06/04/19 16:55 07/04/19 16:54 Diphenhydramine HCl (Benadryl) 25 mg Q6H PRN ORAL Itching/Pruritis 06/04/19 16:54 07/04/19 16:53 Docusate Sodium (Colace) 100 mg EVERY 12 HOURS ORAL 06/04/19 21:00 07/04/19 20:59 06/10/19 08:28 Enoxaparin Sodium (Lovenox) 40 mg DAILY SUBQ 06/10/19 09:00 07/10/19 08:59 Gadobutrol (Gadavist) 7.5 mmol NOW PRN IV Radiology Procedure 06/09/19 14:00 06/13/19 13:51 Hydromorphone HCl (Dilaudid) 1 mg Q4H PRN IVP For Severe Pain 7-06/04/19 17:56 06/11/19 17:55 06/11/19 06:28 Iohexol (Omnipaque 350 100ml) 100 ml NOW PRN INJ Radiology Procedure 06/09/19 11:00 06/11/19 10:59 Levothyroxine Sodium (Synthroid) 200 mcg DAILY@0630 ORAL 06/05/19 06:30 07/05/19 06:29 06/11/19 05:36 Meropenem 1 gm/ Sodium Chloride 55 ml @ 110 mls/hr Q8H IVPB 06/09/19 17:00 06/12/19 16:59 06/11/19 08:58 Mirtazapine (Remeron) 15 mg BEDTIME ORAL 06/04/19 21:00 07/04/19 20:59 06/10/19 20:38 Morphine Sulfate (Morphine Sulfate) 1 mg Q4H PRN IVP Moderat Pain (Pain Scale 4-6) 06/04/19 18:00 06/11/19 16:54 Ondansetron HCl (Zofran) 4 mg Q6H PRN IVP Nausea & Vomiting 06/04/19 16:54 07/04/19 16:53 Sennosides (Senokot) 17.2 mg BEDTIME ORAL 06/04/19 21:00 07/04/19 20:59 06/10/19 20:38 Sodium Chloride 1,000 ml @ 75 mls/hr [id number] IV 06/05/19 12:30 07/05/19 12:29 06/11/19 05:37 Tamsulosin HCl (Flomax) 0.4 mg BEDTIME ORAL 06/04/19 21:00 07/04/19 20:59 06/10/19 20:38 Temazepam (RestoriL) 7.5 mg QHS PRN ORAL Insomnia 06/04/19 21:00 06/11/19 20:59 06/10/19 20:38 Assessment/Plan Status: stable Assessment/Plan: Patient with b/l BKA stump wounds and UTI. His wounds are definitely not the source of his recent WBC spike. The wounds were debrided at the bedside today and re-dressed. Once he is discharged, will arrange follow up at the outpatient wound center for his wounds. Will continue current dressings for now. Andrew Roldan MD Jun 11, 2019 09:51
--- NOTE | 2019-06-11 10:18 | Cardiology Progress Note ---
Assessment/Plan Status: stable Assessment/Plan Assessment/Plan Problem List: (1) Leg pain (2) Hypothyroid (3) UTI (urinary tract infection) (4) Hypomagnesemia (5) Chronic wound of extremity (6) Tachycardia/Ectopy/PVCs Tachycardia has improved with fluids and pain control. -IV fluids -Echocardiogram pending -Check D dimer -> elevated --> CTA negative for PE -IV abx per ID/Urology -Check thyroid function studies -continue telemetry -Hold beta blockers -Wound care consult Subjective Cardiovascular: Reports: no symptoms Respiratory: Reports: no symptoms Gastrointestinal/Abdominal: Reports: no symptoms Genitourinary: Reports: no symptoms Subjective No acute events, no fevers, WBC normal, troponin negative, tachycardia improved with fluids, D dimer elevated, CTA negative for PE, thyroid function pending. Tolerating Abx, pain controlled. Patient does not allow further blood draws and is concerned about being anemic, no signs of bleeding Objective Last 24 Hour Vital Signs Date Time Temp Pulse Resp B/P (MAP) Pulse Ox O2 Delivery O2 Flow Rate FiO2 06/11/19 08:00 98.1 84 17 97/52 (67) 98 06/11/19 07:35 98.0 06/11/19 04:00 98.0 84 19 120/70 (87) 98 06/11/19 00:00 98.5 82 19 118/70 (86) 95 06/10/19 21:20 Room Air 06/10/19 20:00 98.4 87 20 123/62 (82) 98 06/10/19 16:00 98.0 81 18 119/69 (86) 98 06/10/19 12:00 98.6 80 18 110/59 (76) 96 General Appearance: no apparent distress, alert EENT: PERRL/EOMI, normal ENT inspection, TMs normal, pharynx normal Neck: non-tender, normal alignment, supple, normal inspection, no JVD Rhythm: NSR Cardiovascular: normal rate, regular rhythm Respiratory/Chest: chest wall non-tender, lungs clear, normal breath sounds Abdomen: normal bowel sounds, non tender, soft, no organomegaly Extremities: normal range of motion, non-tender, normal inspection, no calf tenderness, no swelling 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
--- NOTE | 2019-06-11 10:34 | NUR ---
RD ASSESSMENT & RECOMMENDATIONS SEE CARE ACTIVITY FOR COMPLETE ASSESSMENT DAILY ESTIMATED NEEDS: Needs based on Wound, bed bound 68kg adj 25-30 kcals/kg 6244-7243 total kcals 1.25-2 g protein/kg 85-136 g total protein 25-30 mL/kg 4080-1267 total fluid mLs NUTRITION DIAGNOSIS: Increased kcal and pro needs r/t wound healing as evidenced by s/p debridement of rt BKA stump wound. PO DIET RECOMMENDATIONS: Maintain Regular diet/ texture as tolerated ADDITIONAL RECOMMENDATIONS: 1) Bed scale wts reads 88.5kg/195#; EMR wt 176# rec to recalibrate bed scale for accurate CBW 2) Wound care: add Vit C 250mg BID + MVI x1 daily Higinio 1pkt BID, pt has refused in the past 3) Snacks as tolerated in b/w meals . .
[2019-06-11 12:00] VITALS: BP 131/72
--- NOTE | 2019-06-11 13:30 | NUR ---
NURSE NOTES:WOUND CARE NOTES:Pt presented on admission with resolving partial thickness wounds R and L buttocks. Both wounds are within an area of hyperpigmentation and scarring from previous pressure injury. Pt denied pain when minimally palpated. No odor or exudate noted.Scrotal erythema noted. Pt educated on wound prevention. Pt demonstrated ability to reposition self when cued. Pt instructed on utilizing siderails to shift weight and for repositioning. Pt instructed to reposition at least hourly to prevent further skin decline.Pt also noted to be incontinent and instructed pt to call for asst with toileting needs to prevent further Skin decline. Tx.plan: Apply Moisture Barrier paste to scrotum and buttocks with each Incontinence care. Cover Sacrum with Optifoam drsg. Change every 3 days and prn. Reposition at least every 2hours or as tolerated. Encourage pt to reposition self at least hourly.
--- NOTE | 2019-06-11 14:22 | NUR ---
CASE MANAGEMENT:REVIEW SI;HEMATURIA. UTI. LEUKOCYTOSIS. 98.5 84 19 97/52 95% ON RA NO LABS AVAILABLE IS;LOVENOX SUBQ QD MEROPENEM IV Q8 HRS IVF NS @ 75 ML/HR SYNTHROID PO QD MED SURG STATUS PLAN OF CARE; MRI WOUND CARE DCP;HOME WITH HOME HEALTH WHEN CLEARED FOR DISCHARGE
[2019-06-11 16:00] VITALS: BP 124/68
--- NOTE | 2019-06-11 16:14 | General Progress Note ---
Assessment/Plan Status: stable Assessment/Plan: #Dysuria #Hematuria #Acute UTI #Leukocytosis - downtrending #Suspected BPH -Continue empiric abx (Ceftraixone 06/03 -06/05), (meropenem 06/05 -) -UA + for UTI, f/u urine culture. -BCx (06/05) - e. coli -ID following -Dilaudid for pain. -Continue flomax 0.4 mg qhs, for probable BPH. #right BKA stump pain #hx of bilateral BKA -cont. Wound care. -Continue weekly wound care clinic f/u on Mondays outpatient. -XR of femur w/evidence of chronic osteo -MRI pending to eval for acute osteo -Stumps debrided at bedside today -cont. pain management -d/w ID #Thrombocytopenia plts dropped from 200 on admission to 91 on 06/08 -d/c heparin DVT PPx, on lovenox -HIT panel pending -labs pending for today -no signs of bleeding at this time, cont. to monitor #Sinus tachycardia - improved EKG with sinus tachycardia. Likely from infection, dehydration. -IV fluids at 75 mL/hr. -Echocardiogram pending -D dimer elevated -CT angio chest ordered, reviewed and negative for PE -thyroid function -continue telemetry -Hold beta blockers etc #Insomnia -continue qhs home meds (mirtazapine, remeron). #Hypothyroidism -Continue home synthroid. #Dispo -HH ordered per CM. #DNAR status -noted. DVT PPX - lovenox Time spent on encounter, 35 minutes, >50% on counseling, coordination of care. I spent an additional 35 minutes on review of medical records including prior outside hospital records, consult notes, progress notes, procedures, imaging, labs, hemodynamics, and other clinical documentation. Subjective Allergies: Coded Allergies: No Known Allergies (Unverified , 01/04/17) Objective Last 24 Hour Vital Signs Date Time Temp Pulse Resp B/P (MAP) Pulse Ox O2 Delivery O2 Flow Rate FiO2 06/11/19 12:00 97.9 78 18 131/72 (91) 95 06/11/19 09:00 Room Air 06/11/19 08:00 98.1 84 17 97/52 (67) 98 06/11/19 07:35 98.0 06/11/19 04:00 98.0 84 19 120/70 (87) 98 06/11/19 00:00 98.5 82 19 118/70 (86) 95 06/10/19 21:20 Room Air 06/10/19 20:00 98.4 87 20 123/62 (82) 98 Intake and Output 06/10/19 06/11/19 19:00 07:00 Intake Total 2095 ml Balance 2095 ml IV Total 895 ml Other 1200 ml Height (Feet): 5 Height (Inches): 5.00 Weight (Pounds): 176 Roman Mendez MD Jun 11, 2019 16:14
--- NOTE | 2019-06-11 19:21 | NUR ---
NURSE NOTES: Received patient in bed, awake, alert, oriented, able to verbalize his needs, IV site is clean dry and intact, no acute distress noted. Call light is within reach, bed is lowered, locked and alarm is on, will continue to monitor for comfort and safety.
--- NOTE | 2019-06-11 19:22 | NUR ---
HAND-OFF: Report given to Rose.
--- NOTE | 2019-06-11 19:55 | Infectious Diseases Prog Note ---
Assessment/Plan Assessment/Plan ASSESSMENT AND PLAN: 1. esbl e.coli uti/pyelonephritis, sepsis, leukocytosis, fevers - meropenem - day # 6/10 - monitor labs - leukocytosis improved - clinically slowly improving, fevers resolved, less urinary symptoms, ua improved 2. Right leg/stump wound, right leg pain, ? femur osteomyelitis - + right leg pain, elevated AP - MRI pending 3. Bilateral BKA. 4. Wound care protocol. 5. BPH. 6. Urinary symptoms. 7. Hypothyroidism. 8. Leg pain. 9. Insomnia. 10. Continue treatment per primary consultants. 11. No known allergies. 12. Social history is negative. 13. Family history is noncontributory. 14. MAR was noted. 15. Case discussed with RN. 16. Case discussed with Dr. Coreas. Subjective Constitutional: Denies: fever HEENT: Denies: congestion Respiratory: Denies: shortness of breath Cardiovascular: Denies: chest pain Gastrointestinal/Abdominal: Denies: nausea, vomiting, diarrhea Genitourinary: Reports: dysuria - less, frequency - less, other - no plascencia Psychiatric: Denies: depression Skin: Denies: rash Hematologic: Denies: bleeding Musculoskeletal: Denies: pain Allergies: Coded Allergies: No Known Allergies (Unverified , 01/04/17) Objective Vital Signs Last 24 Hour Vital Signs Date Time Temp Pulse Resp B/P (MAP) Pulse Ox O2 Delivery O2 Flow Rate FiO2 06/11/19 16:00 98.2 80 19 124/68 (86) 100 06/11/19 12:00 97.9 78 18 131/72 (91) 95 06/11/19 09:00 Room Air 06/11/19 08:00 98.1 84 17 97/52 (67) 98 06/11/19 07:35 98.0 06/11/19 04:00 98.0 84 19 120/70 (87) 98 06/11/19 00:00 98.5 82 19 118/70 (86) 95 06/10/19 21:20 Room Air 06/10/19 20:00 98.4 87 20 123/62 (82) 98 Height (Feet): 5 Height (Inches): 5.00 Weight (Pounds): 176 General Appearance: no acute distress HEENT: normocephalic, atraumatic, anicteric, mucous membranes moist Respiratory/Chest: lungs clear, normal breath sounds, no respiratory distress, no accessory muscle use Cardiovascular: normal rate, regular rhythm, no gallop/murmur, no JVD Abdomen: normal bowel sounds, soft, non tender, no organomegaly, non distended Genitourinary: other - no plascencia, no cva pain Extremities: other - bilateral bka, right stump lesion covered Skin: no rash Neurologic/Psychiatric: psychologist chief II-XII grossly normal, alert, responsive Lymphatic: no neck adenopathy Musculoskeletal: no effusion Objective Chest x-ray - Procedure: XRAY Chest 1v Indication: Dyspnea Comparison: 06/04/2019 A single view chest radiograph was obtained. Findings: Lung volumes are low. Heart is enlarged. Interstitium is prominent but no overt CHF seen. Bones are osteopenic. IMPRESSION: No significant change at this time. CT chest: IMPRESSION: 1. No central pulmonary embolus. 2. Cholelithiasis. 3. Extravasation of contrast overlying the left chest wall/shoulder area. <MYCVCSECTION> Microbiology Date/Time Source Procedure Growth Status 06/09/19 15:30 Urine,Clean Catch Urine Culture - Preliminary NO GROWTH AFTER 24 HOURS Resulted Microbiology Date/Time Source Procedure Growth Status 06/09/19 15:30 Urine,Clean Catch Urine Culture - Preliminary NO GROWTH AFTER 24 HOURS Resulted initial urine culture - esbl e.coli Labs Test 06/09/19 07:15 06/09/19 09:10 06/09/19 15:30 Sodium Level 141 MMOL/L (136-145) Potassium Level 4.2 MMOL/L (3.5-5.1) Chloride Level 110 MMOL/L (98-107) Carbon Dioxide Level 19 MMOL/L (21-32) Anion Gap 12 mmol/L (5-15) Blood Urea Nitrogen 22 mg/dL (7-18) Creatinine 0.8 MG/DL (0.55-1.30) Estimat Glomerular Filtration Rate > 60 mL/min (>60) Glucose Level 87 MG/DL (74-106) Calcium Level 8.5 MG/DL (8.5-10.1) White Blood Count 11.5 K/UL (4.8-10.8) Red Blood Count 3.05 M/UL (4.70-6.10) Hemoglobin 9.9 G/DL (14.2-18.0) Hematocrit 28.5 % (42.0-52.0) Mean Corpuscular Volume 94 FL (80-99) Mean Corpuscular Hemoglobin 32.5 PG (27.0-31.0) Mean Corpuscular Hemoglobin Concent 34.7 G/DL (32.0-36.0) Red Cell Distribution Width 14.4 % (11.6-14.8) Platelet Count 93 K/UL (150-450) Mean Platelet Volume 8.0 FL (6.5-10.1) Neutrophils (%) (Auto) % (45.0-75.0) Lymphocytes (%) (Auto) % (20.0-45.0) Monocytes (%) (Auto) % (1.0-10.0) Eosinophils (%) (Auto) % (0.0-3.0) Basophils (%) (Auto) % (0.0-2.0) Differential Total Cells Counted 100 Neutrophils % (Manual) 85 % (45-75) Lymphocytes % (Manual) 9 % (20-45) Monocytes % (Manual) 6 % (1-10) Eosinophils % (Manual) 0 % (0-3) Basophils % (Manual) 0 % (0-2) Band Neutrophils 0 % (0-8) Platelet Estimate Decreased Platelet Morphology Normal Anisocytosis 1+ D-Dimer 2.16 mg/L FEU (0.00-0.49) Urine Color Pale yellow Urine Appearance Clear Urine pH 5 (4.5-8.0) Urine Specific [place] 1.005 (1.005-1.035) Urine Protein Negative (NEGATIVE) Urine Glucose (UA) Negative (NEGATIVE) Urine Ketones Negative (NEGATIVE) Urine Blood 4+ (NEGATIVE) Urine Nitrite Negative (NEGATIVE) Urine Bilirubin Negative (NEGATIVE) Urine Urobilinogen Normal MG/DL (0.0-1.0) Urine Leukocyte Esterase 1+ (NEGATIVE) Urine RBC 2-4 /HPF (0 - 0) Urine WBC 20-30 /HPF (0 - 0) Urine Squamous Epithelial Cells Occasional /LPF Urine Bacteria Occasional /HPF (NONE) Current Medications Medications (Trade) Dose Ordered Sig/Trever Route PRN Reason Start Time Stop Time Status Last Admin Dose Admin Acetaminophen (Tylenol) 650 mg Q4H PRN ORAL fever 06/04/19 16:55 07/04/19 16:54 Acetaminophen (Tylenol) 650 mg Q4H PRN ORAL Mild Pain (Pain Scale 1-3) 06/04/19 16:56 07/04/19 16:55 06/05/19 12:21 Bisacodyl (Dulcolax) 10 mg HSPRN PRN RECTAL Constipation 06/04/19 21:00 07/04/19 20:59 Dextrose (Dextrose 50%) 25 ml Q30M PRN IV Hypoglycemia 06/04/19 16:55 07/04/19 16:54 Dextrose (Dextrose 50%) 50 ml Q30M PRN IV Hypoglycemia 06/04/19 16:55 07/04/19 16:54 Diphenhydramine HCl (Benadryl) 25 mg Q6H PRN ORAL Itching/Pruritis 06/04/19 16:54 07/04/19 16:53 Docusate Sodium (Colace) 100 mg EVERY 12 HOURS ORAL 06/04/19 21:00 07/04/19 20:59 06/10/19 08:28 Enoxaparin Sodium (Lovenox) 40 mg DAILY SUBQ 06/10/19 09:00 07/10/19 08:59 Gadobutrol (Gadavist) 7.5 mmol NOW PRN IV Radiology Procedure 06/09/19 14:00 06/13/19 13:51 Levothyroxine Sodium (Synthroid) 200 mcg DAILY@0630 ORAL 06/05/19 06:30 07/05/19 06:29 06/11/19 05:36 Meropenem 1 gm/ Sodium Chloride 55 ml @ 110 mls/hr Q8H IVPB 06/09/19 17:00 06/12/19 16:59 06/11/19 18:06 Mirtazapine (Remeron) 15 mg BEDTIME ORAL 06/04/19 21:00 07/04/19 20:59 06/10/19 20:38 Ondansetron HCl (Zofran) 4 mg Q6H PRN IVP Nausea & Vomiting 06/04/19 16:54 07/04/19 16:53 Sennosides (Senokot) 17.2 mg BEDTIME ORAL 06/04/19 21:00 07/04/19 20:59 06/10/19 20:38 Sodium Chloride 1,000 ml @ 75 mls/hr [id number] IV 06/05/19 12:30 07/05/19 12:29 06/11/19 05:37 Tamsulosin HCl (Flomax) 0.4 mg BEDTIME ORAL 06/04/19 21:00 07/04/19 20:59 06/10/19 20:38 Temazepam (RestoriL) 7.5 mg QHS PRN ORAL Insomnia 06/04/19 21:00 06/11/19 20:59 06/10/19 20:38 Celine Yi MD Jun 11, 2019 19:55
[2019-06-11 20:00] VITALS: BP 109/63
[2019-06-11] MEDS: Sennosides 8.6mg tab ORAL SCH (20:16)
[2019-06-11] MEDS: Tamsulosin 0.4mg cap ORAL SCH (20:16)
[2019-06-12] VITALS: BP 118/70
--- NOTE | 2019-06-12 00:15 | Progress Note ---
DATE: 06/11/2019 SUBJECTIVE: The patient in no acute distress. Able to answer the questions appropriately. More alert and engaged. The patient continues to refuse some care and medication. He gets anxious and irritable. MENTAL STATUS EXAMINATION: The patient is alert and oriented times to self, place, situation, and date. Mood is depressed and irritable. Affect is constricted, congruent with mood. Thought process, linear and goal oriented. Thought content, no suicidal or homicidal ideation. Cognition is impaired. Insight and judgment is limited. ASSESSMENT: Major depressive disorder. PLAN: 1. Continue Remeron. 2. Provide the patient with reality orientation and supportive therapy. Yoon Vargas M.D. DR: PAYAM JOB#: [id number] CC:
[2019-06-12] MEDS: Meropenem 1 GM in NS 55 ML IVPB SCH ×3 (00:54→17:44)
[2019-06-12] MEDS: HYDROmorphone 1mg/ml Carpuject IVP PRN ×5 (02:49→20:15)
[2019-06-12 04:00] VITALS: BP 104/60
--- NOTE | 2019-06-12 07:12 | NUR ---
HAND-OFF: Report given to Leyla BOYCE.
--- NOTE | 2019-06-12 07:30 | NUR ---
NURSE NOTES: Patient is off the unit for MRI.
[2019-06-12] MEDS: Docusate 100mg cap ORAL SCH ×2 (09:00→20:23)
[2019-06-12] MEDS: Enoxaparin 40mg Inj SUBQ SCH (09:00)
--- NOTE | 2019-06-12 09:14 | NUR ---
NURSE NOTES: Patient came back from MRI in stable condition.
--- NOTE | 2019-06-12 09:17 | NUR ---
PT COMPLETED MRI TIB/FIB WITH/WO CONTRAST.
--- NOTE | 2019-06-12 09:34 | NUR ---
NURSE NOTES: patient refused to take docusate and lovenox. RN re-educated on medications, patient fully understood but refused x3. Explained the risks and benefits. Dr. Rivas is aware with no new order.
--- NOTE | 2019-06-12 10:39 | Cardiology Progress Note ---
Assessment/Plan Status: stable Assessment/Plan Assessment/Plan Problem List: (1) Leg pain (2) Hypothyroid (3) UTI (urinary tract infection) (4) Hypomagnesemia (5) Chronic wound of extremity (6) Tachycardia/Ectopy/PVCs Tachycardia has improved with fluids and pain control. -IV fluids -Echocardiogram pending -Check D dimer -> elevated --> CTA negative for PE -IV abx per ID/Urology -Check thyroid function studies -continue telemetry -Hold beta blockers -Wound care consult Subjective Cardiovascular: Reports: no symptoms Respiratory: Reports: no symptoms Gastrointestinal/Abdominal: Reports: no symptoms Genitourinary: Reports: no symptoms Subjective No acute events, no fevers, WBC normal, troponin negative, tachycardia improved with fluids, D dimer elevated, CTA negative for PE, thyroid function pending. Tolerating Abx, pain controlled. no signs of bleeding. For MRI tib/fib today Objective Last 24 Hour Vital Signs Date Time Temp Pulse Resp B/P (MAP) Pulse Ox O2 Delivery O2 Flow Rate FiO2 06/12/19 09:14 Room Air 06/12/19 04:00 98.8 68 18 104/60 (75) 97 06/12/19 03:20 98.5 06/12/19 00:00 98.5 88 18 118/70 (86) 95 06/11/19 21:02 Room Air 06/11/19 20:00 98.4 85 18 109/63 (78) 98 06/11/19 16:00 98.2 80 19 124/68 (86) 100 06/11/19 12:00 97.9 78 18 131/72 (91) 95 General Appearance: no apparent distress, alert EENT: PERRL/EOMI, normal ENT inspection, TMs normal, pharynx normal Neck: non-tender, normal alignment, supple, normal inspection, no JVD Rhythm: NSR Cardiovascular: normal peripheral pulses, normal rate, regular rhythm Respiratory/Chest: chest wall non-tender, lungs clear, normal breath sounds Abdomen: normal bowel sounds, non tender, soft, no organomegaly, no mass Extremities: normal range of motion, non-tender, normal inspection, no calf tenderness, no swelling Neurologic: generating station mechanic II-XII grossly normal, no motor/sensory deficits Intake and Output 06/11/19 06/12/19 19:00 07:00 Intake Total 1200 ml 480 ml Output Total 750 ml Balance 1200 ml -270 ml Intake Oral 480 ml Other 1200 ml Output Urine Total 750 ml # Voids 3 Microbiology Date/Time Source Procedure Growth Status 06/09/19 15:30 Urine,Clean Catch Urine Culture - Preliminary Resulted Emeka Grace MD Jun 12, 2019 10:39
[2019-06-12] MEDS ORDERED: Heparin1,000 units/500ml Premix(Conc:2 units/ml) IV PRN (11:25)
[2019-06-12] MEDS ORDERED: Lidocaine 1% Plain 30 ml INJ PRN (11:30)
--- NOTE | 2019-06-12 12:00 | NUR ---
NURSE NOTES: Patient refused 12:00 pm V/S. No s/s of SOB or hypo/hypertension. Explained the risks and benefits.
--- NOTE | 2019-06-12 12:13 | CDS Physician Query ---
Clarification is required for compliance, coding accuracy, and to reflect severity of illness for this patient Dear Dr. Andrew Roldan Date: 06/12/2019 CDS name: Luz Maria Gordillo Clinical Documentation states: 06/10 consult: Patient with b/l BKA stump wounds and UTI. His wounds are definitely not the source of his recent WBC spike. The wounds were debrided at the bedside today and re-dressed. Once he is discharged , will arrange follow up at the outpatient wound center for his wounds. Will continue current dressings for now. Because there is documentation in the medical record of "Debridement," clarification is needed. Please document whether this is "Excisional" or "Nonexcisional" Debridement" of the wound, infection or burn. Kindly specify the type and depth of debridement performed: [] Excisional: Please document the depth of tissue [] Skin [] Subcutaneous tissue and Fascia [] Muscle [] Bone [] Nonexcisional: [] Skin [] Subcutaneous tissue and Fascia [] Muscle [] Bone Present on Admission: [] Yes [] No [] Clinically Undetermined Physician signature Date Please also document in your Progress Notes and/or Discharge Summary and indicate if the condition was present on admission. SHAROND
--- NOTE | 2019-06-12 14:25 | General Progress Note ---
Assessment/Plan Status: stable Assessment/Plan: #Dysuria #Hematuria #Acute UTI #Leukocytosis - downtrending #Suspected BPH -Continue empiric abx (Ceftraixone 06/03 -06/05), (meropenem for 3 more days) -UA + for UTI, f/u urine culture. -BCx (06/05) - e. coli -ID following -Dilaudid for pain. -Continue flomax 0.4 mg qhs, for probable BPH. #right BKA stump pain #hx of bilateral BKA -cont. Wound care. -Continue weekly wound care clinic f/u on Mondays outpatient. -XR of femur w/evidence of chronic osteo -MRI results pending -Stumps debrided at bedside today -cont. pain management -d/w ID #Thrombocytopenia plts dropped from 200 on admission to 91 on 06/08 -d/c heparin DVT PPx, on lovenox -HIT panel pending -labs pending for today -no signs of bleeding at this time, cont. to monitor #Sinus tachycardia - improved EKG with sinus tachycardia. Likely from infection, dehydration. -IV fluids at 75 mL/hr. -Echocardiogram pending -D dimer elevated -CT angio chest ordered, reviewed and negative for PE -thyroid function -continue telemetry -Hold beta blockers etc #Insomnia -continue qhs home meds (mirtazapine, remeron). #Hypothyroidism -Continue home synthroid. #Dispo -HH ordered per CM. #DNAR status -noted. DVT PPX - lovenox Time spent on encounter, 35 minutes, >50% on counseling, coordination of care. Subjective Date patient seen: Jun 12, 2019 Time patient seen: 13:29 ROS Limited/Unobtainable: No Constitutional: Denies: chills Cardiovascular: Denies: chest pain Respiratory: Denies: cough Gastrointestinal/Abdominal: Denies: abdomen distended, abdominal pain Neurologic/Psychiatric: Denies: anxiety Allergies: Coded Allergies: No Known Allergies (Unverified , 01/04/17) Objective Last 24 Hour Vital Signs Date Time Temp Pulse Resp B/P (MAP) Pulse Ox O2 Delivery O2 Flow Rate FiO2 06/12/19 09:14 Room Air 06/12/19 04:00 98.8 68 18 104/60 (75) 97 06/12/19 03:20 98.5 06/12/19 00:00 98.5 88 18 118/70 (86) 95 06/11/19 21:02 Room Air 06/11/19 20:00 98.4 85 18 109/63 (78) 98 06/11/19 16:00 98.2 80 19 124/68 (86) 100 Intake and Output 06/11/19 06/12/19 18:59 06:59 Intake Total 1200 ml 480 ml Output Total 750 ml Balance 1200 ml -270 ml Intake Oral 480 ml Other 1200 ml Output Urine Total 750 ml # Voids 3 Height (Feet): 5 Height (Inches): 5.00 Weight (Pounds): 176 General Appearance: no apparent distress, alert Neck: supple Cardiovascular: normal rate, regular rhythm Respiratory/Chest: lungs clear, normal breath sounds Abdomen: non tender, soft Roman Mendez MD Jun 12, 2019 14:24
--- NOTE | 2019-06-12 15:40 | NUR ---
NURSE NOTES: RN tried to get consent for an PICC line insertion and explained what it is. Patient wants to talk to doctor tomorrow before he makes decision.
--- NOTE | 2019-06-12 15:49 | Diagnostic Imaging Report ---
Indication: Large open wound on distal end of right BKA stump Technique: Axial, sagittal, and coronal T1 and STIR, axial and sagittal pre and postcontrast T1 fat-saturated images of the right distal femur and lower leg stump Comparison: 12/08/2018 noncontrast study, also 06/04/2019 plain radiograph Findings: Patient is status post [id number] amputation. Areas of signal void presumably represent surgical clips demonstrated on recent plain radiograph. Some of these could represent gas bubbles, although they are markedly similar in distribution and extent to the prior study making this less likely. Also, no definite soft tissue gas is evident on recent plain radiograph. There is evidence of an ulcer of the stomach which is visible on the plain radiograph as well. There is generalized soft tissue edema in the region of the stomach No definite focal fluid collection to suggest abscess is demonstrated. Abnormal decreased T1 and increased signal is seen within the anterior proximal tibia. This appears similar to the previous study. This area enhances. No abnormal fibular signal demonstrated. There are scattered areas of high T2 and low T1 signal mostly within the cortex but also a small amount within the distal medulla of the distal femur which are somewhat more striking than on the previous study. One of these in the medial distal diaphysis demonstrates enhancement, as does a second area in the posterior metaphysis centrally. There is also evidence of some endosteal sclerosis of the cortex, also visible on recent plain radiographs.. There is some soft tissue edema within the fat immediately lateral to the distal femur. Superficial to this, there is some edema extending into the subcutaneous fat. This is increased from the previous exam. There may be a small amount of joint fluid. The anterior cruciate ligament, posterior cruciate ligament, fibular collateral ligament, medial collateral ligament, patellar tendon and quadriceps tendon all appear grossly intact, although exam protocol was not tailored for optimal visualization of the structures. No definite meniscal abnormality demonstrated. Impression: Marrow edema and enhancement of the proximal tibial stump. Persistence of this well beyond the immediate postoperative period suggests osteomyelitis. More discrete numerous foci of high T2 signal in the distal femur, some of which enhance. Enhancing foci are more numerous than on the previous exam. One of these correlates with the lucency described on recent plain radiograph. The possibility of disseminated neoplasm as etiology of these findings should be considered. Given the abnormal appearance of the endosteum and cortex on recent plain radiograph, it is also possible that these represent indolent foci of chronic osteomyelitis. Soft tissue ulceration and edema of the soft tissue stump, consistent with cellulitis given stated clinical history. No evidence of abscess Multiple areas of signal void in the soft tissue stump. Most likely these represent areas of susceptibility artifact due to the surgical clips that are in the region. It is possible that some of these represent gas bubbles related to infection by gas-forming organism. This is deemed less likely given similarity to the previous study and absence of macroscopic soft tissue gas on recent plain radiograph. Correlate with clinical findings
[2019-06-12 16:00] VITALS: BP 126/61
--- NOTE | 2019-06-12 19:00 | NUR ---
NURSE NOTES: Rn relayed MRI of the foot result to Dr. Ma and Dr. Ma spoke to Dr. yi. Rn received orders from Dr. Yi to give vancomycin 1gm IV then vancomycin pharmacy to dose due to osteomyelitis. Orders read back.
--- NOTE | 2019-06-12 19:29 | NUR ---
HAND-OFF: Report given to Devin and endorsed plan of care.
[2019-06-12] MEDS ORDERED: Vancomycin 1 GM in D5W 275 ML IVPB ONE (19:30)
--- NOTE | 2019-06-12 19:42 | NUR ---
NURSE NOTES: Patient in bed, awake, alert and verbally responsible. Bed in low and locked position. Provided safe environment. Iv site noted. skin is warm and dry to touch. Iv fluid is infusing as ordered. No complaint of pain or discomfort noted. Respiration is even and unlabored. Noted with wound dressing on bilateral stump, intact. Call light is at bedside. Will continue plan of care.
[2019-06-12 20:00] VITALS: BP 113/59
[2019-06-12] MEDS ORDERED: Vancomycin 1.25gm/NS Premix IVPB ONE (20:00)
[2019-06-12] MEDS: Dyna-Hex 2% Top Sol 2oz TOPIC SCH (20:14)
[2019-06-12] MEDS: Sennosides 8.6mg tab ORAL SCH (20:24)
[2019-06-12] MEDS: Tamsulosin 0.4mg cap ORAL SCH (20:24)
--- NOTE | 2019-06-12 21:42 | NUR ---
NURSE NOTES: Called primary MD to renew Temazepam, end date for medication has been reached. Waiting call back.
--- NOTE | 2019-06-12 23:30 | Progress Note ---
DATE: 06/12/2019 SUBJECTIVE: The patient is in bed, depressed, anhedonia, worthlessness, helplessness. The patient states that he has been feeling depressed and he is still lonely. He has multiple bruises on his arms. He talks about those and scratching himself. He is compliant with medication. He is very pleasant and cooperative with the staff. MENTAL STATUS EXAMINATION: The patient is alert and oriented times self, place, and situation. Mood is depressed. Affect is blunted, congruent with mood. Thought process, linear and goal oriented. Thought content, there is no suicidal or homicidal ideation. Cognition is intact. Insight and judgment fair. ASSESSMENT: 1. Major depressive disorder. 2. Insomnia. PLAN: 1. We will start the patient on Lexapro 10 mg in the morning. 2. Remeron p.r.n. 3. Discussed with the nurse. Yoon Vargas M.D. DR: GINO JOB#: [id number] CC:
[2019-06-13] VITALS: BP 119/62
[2019-06-13] MEDS: Meropenem 1 GM in NS 55 ML IVPB SCH ×3 (00:01→16:09)
[2019-06-13] MEDS: HYDROmorphone 1mg/ml Carpuject IVP PRN ×6 (00:02→20:14)
[2019-06-13 04:00] VITALS: BP 109/56
--- NOTE | 2019-06-13 07:05 | NUR ---
HAND-OFF: Report given to Koko Duke and Koko Rajan.
[2019-06-13 08:00] VITALS: BP 105/53
[2019-06-13] MEDS: Docusate 100mg cap ORAL SCH ×2 (08:11→21:00)
[2019-06-13] MEDS: Enoxaparin 40mg Inj SUBQ SCH (08:12)
[2019-06-13] MEDS ORDERED: Lidocaine 1% Plain 30 ml INJ PRN (08:29)
[2019-06-13] MEDS ORDERED: Heparin1,000 units/500ml Premix(Conc:2 units/ml) IV PRN (08:30)
--- NOTE | 2019-06-13 09:54 | Cardiology Progress Note ---
Assessment/Plan Status: stable Assessment/Plan Assessment/Plan Problem List: (1) Leg pain (2) Hypothyroid (3) UTI (urinary tract infection) (4) Hypomagnesemia (5) Chronic wound of extremity (6) Tachycardia/Ectopy/PVCs Tachycardia has improved with fluids and pain control. -IV fluids -Echocardiogram negative for endocarditis -Check D dimer -> elevated --> CTA negative for PE -IV abx per ID/Urology -Check thyroid function studies -continue telemetry -Hold beta blockers -Wound care consult -PICC line for chcf antibiotics Subjective Cardiovascular: Reports: no symptoms Respiratory: Reports: no symptoms Gastrointestinal/Abdominal: Reports: no symptoms Genitourinary: Reports: no symptoms Subjective No acute events, no fevers, WBC normal, troponin negative, tachycardia improved with fluids, D dimer elevated, CTA negative for PE, thyroid function pending. Tolerating Abx, pain controlled. no signs of bleeding. MRI showed osteomyelitis Objective Last 24 Hour Vital Signs Date Time Temp Pulse Resp B/P (MAP) Pulse Ox O2 Delivery O2 Flow Rate FiO2 06/13/19 09:00 Room Air 06/13/19 08:00 97.4 77 16 105/53 (70) 96 06/13/19 04:00 97.4 72 18 109/56 (73) 96 06/13/19 00:00 97.7 79 18 119/62 (81) 97 06/12/19 21:00 Room Air 06/12/19 20:00 97.6 75 18 113/59 (77) 94 06/12/19 16:00 98.0 83 18 126/61 (82) 97 General Appearance: no apparent distress, alert EENT: PERRL/EOMI, normal ENT inspection, TMs normal, pharynx normal Neck: non-tender, normal alignment, supple, normal inspection, no JVD Rhythm: NSR Cardiovascular: normal peripheral pulses, normal rate, regular rhythm Respiratory/Chest: chest wall non-tender, lungs clear, normal breath sounds, no respiratory distress, no accessory muscle use Abdomen: normal bowel sounds, non tender, soft, no organomegaly, no mass Extremities: normal range of motion, non-tender, normal inspection, no calf tenderness, no swelling 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
--- NOTE | 2019-06-13 10:36 | NUR ---
NURSE NOTES: Patient seen on rounds in bed, AxOx4, not in distress, c/o pain on bilateral stump rated 6/10, left shoulder PIV g22 patent infusing ordered IVF. Patient refused lab draw from 06/11. Dr. Chan made aware on rounds. Will await PICC line placement this AM and may use for blood draws. Resident also refused AM meds except IV ATB and Dilaudid. Offered x3, risks and benefits explained. Call light placed within reach. Bed in lowest position. Advised to call nurse for assistance. Will continue to monitor.
--- NOTE | 2019-06-13 10:40 | NUR ---
NURSE NOTES: Patient is off-unit for scheduled PICC line procedure. Hand off given, patient left in stable condition.
--- NOTE | 2019-06-13 10:42 | NUR ---
*-* DISCHARGE PLANNING *-* PATIENT HAS BEEN REFERRED TO: 1. [facility] P: F: [phone] *-* S/W Jessy she is reviewing the chart and eligibility *-* 2. [facility] P: F: [phone] *-* S/W Zakia they have no male beds available ( pt has been here before and has had behavioral problems) *-* 3. [facility] P: F: [phone] *-* s/w Antonia she has received the referral will give to Stacy to look over it 10:48am *-* 4. [facility] P: F: [phone] *-* lvm for Rell re: new referral to call me back once msg has been received *-*
--- NOTE | 2019-06-13 11:20 | NUR ---
RADIOLOGY NOTE: RIGHT UPPER EXTREMITY MIDLINE PLACED.
--- NOTE | 2019-06-13 11:23 | Pre-Procedure Note/Attestation ---
Pre-Procedure Note/Attestation Complete Prior to Procedure Planned Procedure: not applicable Procedure Narrative: PICC Indications for Procedure Pre-Operative Diagnosis: needs long term acute care registered nurse abx Attestation I attest that I discussed the nature of the procedure; its benefits; risks and complications; and alternatives (and the risks and benefits of such alternatives ), prior to the procedure, with the patient (or the patient's legal product sales representative). I attest that, if there was a reasonable possibility of needing a blood transfusion, the patient (or the patient's legal product sales representative) was given the [facility] standardized written summary, pursuant to the [place]ghia Dominga Blood Safety Act ([place] Health and Safety Code # 1645, as amended). I attest that I re-evaluated the patient just prior to the surgery and that there has been no change in the patient's H&P, except as documented below: Cornell Llamas MD Jun 13, 2019 11:23
--- NOTE | 2019-06-13 11:37 | Brief Operative Note ---
Immediate Post Operative Note Operative Note Pre-op Diagnosis: needs rn long term care abx Procedure: R arm midline, venogram Post-op Diagnosis: same as pre-op Surgeon: Vita Llamas Anesthesia: local Specimen: none Complications: none Condition: stable Fluids: none Implant(s) used?: No Cornell Llamas MD Jun 13, 2019 11:37
--- NOTE | 2019-06-13 11:45 | NUR ---
NURSE NOTES: Patient returned from Radiology S/P Midline insertion on right upper arm with orders ok to use. Port placed and flushed with normal saline. Patient in stable condition. Addendum: 06/13/19 at 1204 by Alicia Degroot RN MD Dr. Ma informed of midline placement
[2019-06-13 12:00] VITALS: BP 113/62
--- NOTE | 2019-06-13 12:26 | NUR ---
CASE MANAGEMENT:REVIEW SI;S/P PICC LINE. RT FIBULA OSTEOMYELITIS. 97.4 79 16 105/53 94% ON RA NO LABS AVAILABLE IS;VANCOMYCIN IV Q24 HRS MEROPENEM IB Q8 HRS RON-HEX TOP QD HEPARIN IV ONCE DILAUDID IV Q4 HRS PRN LOVENOX SUBQ QD IVF NS @ 75 ML/HR MED SURG STATUS PLAN OF CARE; ADMINISTRATOR ABX WOUND CARE DILAUDID FOR PAIN DCP;SNF PLACEMENT
--- NOTE | 2019-06-13 15:19 | General Progress Note ---
Assessment/Plan Status: stable Assessment/Plan: #Dysuria #Hematuria #Acute UTI #Leukocytosis - downtrending #Suspected BPH -Continue empiric abx (Ceftraixone 06/03 -06/05), (meropenem for 3 more days) -UA + for UTI, f/u urine culture. -BCx (06/05) - e. coli -ID following -Dilaudid for pain. -Continue flomax 0.4 mg qhs, for probable BPH. #right BKA stump pain #hx of bilateral BKA #Right proximal tibia osteo -cont. Wound care. -Continue weekly wound care clinic f/u on Mondays outpatient. -XR of femur w/evidence of chronic osteo -MRI results reviewed -Stumps debrided at bedside today -cont. pain management -d/w ID, started vanco for 6 weeks -Midline catheter placed #Thrombocytopenia plts dropped from 200 on admission to 91 on 06/08 -d/c heparin DVT PPx, on lovenox -HIT panel pending -labs pending for today -no signs of bleeding at this time, cont. to monitor #Sinus tachycardia - improved EKG with sinus tachycardia. Likely from infection, dehydration. -IV fluids at 75 mL/hr. -Echocardiogram pending -D dimer elevated -CT angio chest ordered, reviewed and negative for PE -thyroid function -continue telemetry -Hold beta blockers etc #Insomnia -continue qhs home meds (mirtazapine, remeron). #Hypothyroidism -Continue home synthroid. #Dispo -SNF per CM #DNAR status -noted. DVT PPX - lovenox Time spent on encounter, 35 minutes, >50% on counseling, coordination of care. Subjective Date patient seen: Jun 13, 2019 Time patient seen: 14:00 ROS Limited/Unobtainable: No Constitutional: Denies: chills, fever Cardiovascular: Denies: chest pain Respiratory: Denies: cough Gastrointestinal/Abdominal: Denies: abdomen distended, abdominal pain Neurologic/Psychiatric: Denies: anxiety Allergies: Coded Allergies: No Known Allergies (Unverified , 01/04/17) Subjective Follow up osteomyelitis MRI done yesterday showed marrow edema and enhancement of the proximal tibial stump concerning for osteo. Start on Vanco Midline catheter placed for anticipated 6 weeks IV abx Case management working on SNF placement Objective Last 24 Hour Vital Signs Date Time Temp Pulse Resp B/P (MAP) Pulse Ox O2 Delivery O2 Flow Rate FiO2 06/13/19 09:00 Room Air 06/13/19 08:00 97.4 77 16 105/53 (70) 96 06/13/19 04:00 97.4 72 18 109/56 (73) 96 06/13/19 00:00 97.7 79 18 119/62 (81) 97 06/12/19 21:00 Room Air 06/12/19 20:00 97.6 75 18 113/59 (77) 94 06/12/19 16:00 98.0 83 18 126/61 (82) 97 Intake and Output 06/12/19 06/13/19 19:00 07:00 Intake Total 185 ml 880 ml Output Total 500 ml Balance -315 ml 880 ml IV Total 185 ml 880 ml Output Urine Total 500 ml # Voids 4 2 # Bowel Movements 1 Height (Feet): 5 Height (Inches): 5.00 Weight (Pounds): 194 General Appearance: no apparent distress, alert Neck: normal alignment, supple Cardiovascular: normal rate, regular rhythm Respiratory/Chest: lungs clear, normal breath sounds Abdomen: non tender, soft Roman Mendez MD Jun 13, 2019 15:19
[2019-06-13 16:00] VITALS: BP 111/54
--- NOTE | 2019-06-13 19:02 | Infectious Diseases Prog Note ---
Assessment/Plan Assessment/Plan ASSESSMENT AND PLAN: 1. esbl e.coli uti/pyelonephritis, sepsis, leukocytosis, fevers MRI - c/w right leg/tibial osteomyelitis - meropenem - day # 8 - vancomycin - day # 2 - patient will need 6 weeks iv abx for osteomyelitis treatment - vancomycin plus meropenem - can use cefepime instead of meropenem - 2 gm every 12 hrs - if less frequent dosing required - would not culture wound since dry and likely colonization - monitor labs, sed rate, crp - leukocytosis improved - clinically slowly improving, fevers resolved, less urinary symptoms, ua improved - encourage patient to get lab draws - communicated with Dr. Ma 2. Right leg/stump wound, right leg pain - management per primary, wound care per protocol and plastic surgery 3. Bilateral BKA. 4. Wound care protocol. 5. BPH. 6. Urinary symptoms. 7. Hypothyroidism. 8. Leg pain. 9. Insomnia. 10. Continue treatment per primary consultants. 11. No known allergies. 12. Social history is negative. 13. Family history is noncontributory. 14. MAR was noted. 15. Case discussed with RN. 16. time spent on case - 35 minutes for d/w pt, communication with primary, data reviewed Subjective Constitutional: Reports: fatigue; Denies: fever HEENT: Denies: congestion Respiratory: Denies: shortness of breath Cardiovascular: Denies: chest pain Gastrointestinal/Abdominal: Denies: nausea, vomiting, diarrhea Genitourinary: Reports: dysuria - less, hematuria - less Neurologic: Denies: headache Psychiatric: Denies: depression Skin: Denies: rash Hematologic: Denies: bleeding Musculoskeletal: Denies: pain Allergies: Coded Allergies: No Known Allergies (Unverified , 01/04/17) Objective Vital Signs Last 24 Hour Vital Signs Date Time Temp Pulse Resp B/P (MAP) Pulse Ox O2 Delivery O2 Flow Rate FiO2 06/13/19 16:00 97.9 72 20 111/54 (73) 97 06/13/19 12:00 98.2 70 19 113/62 (79) 95 06/13/19 09:00 Room Air 06/13/19 08:00 97.4 77 16 105/53 (70) 96 06/13/19 04:00 97.4 72 18 109/56 (73) 96 06/13/19 00:00 97.7 79 18 119/62 (81) 97 06/12/19 21:00 Room Air 06/12/19 20:00 97.6 75 18 113/59 (77) 94 Height (Feet): 5 Height (Inches): 5.00 Weight (Pounds): 194 General Appearance: no acute distress HEENT: normocephalic, atraumatic, anicteric, mucous membranes moist Respiratory/Chest: lungs clear, normal breath sounds, no respiratory distress, no accessory muscle use Cardiovascular: normal rate, regular rhythm, no gallop/murmur, no JVD Abdomen: normal bowel sounds, soft, non tender, no organomegaly, non distended Genitourinary: other - no plascencia, no cva pain Extremities: other - bilateral leg amputation, 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 Findings: Lung volumes are low. Heart is enlarged. Interstitium is prominent but no overt CHF seen. Bones are osteopenic. IMPRESSION: No significant change at this time. CT chest: IMPRESSION: 1. No central pulmonary embolus. 2. Cholelithiasis. 3. Extravasation of contrast overlying the left chest wall/shoulder area. MRI - RLE: Impression: Marrow edema and enhancement of the proximal tibial stump. Persistence of this well beyond the immediate postoperative period suggests osteomyelitis. More discrete numerous foci of high T2 signal in the distal femur, some of which enhance. Enhancing foci are more numerous than on the previous exam. One of these correlates with the lucency described on recent plain radiograph. The possibility of disseminated neoplasm as etiology of these findings should be considered. Given the abnormal appearance of the endosteum and cortex on recent plain radiograph, it is also possible that these represent indolent foci of chronic osteomyelitis. Soft tissue ulceration and edema of the soft tissue stump, consistent with cellulitis given stated clinical history. No evidence of abscess Multiple areas of signal void in the soft tissue stump. Most likely these represent areas of susceptibility artifact due to the surgical clips that are in the region. It is possible that some of these represent gas bubbles related to infection by gas-forming organism. This is deemed less likely given similarity to the previous study and absence of macroscopic soft tissue gas on recent plain radiograph. Correlate with clinical findings Microbiology Date/Time Source Procedure Growth Status 06/09/19 15:30 Urine,Clean Catch Urine Culture - Final Enterococcus Faecium - Vre Complete urine culture - initial - esbl e.coli uti 06/09/19 - wbc - 11.5 hgb - 9.9 plt - 93 cr - 0.8 Current Medications Medications (Trade) Dose Ordered Sig/Trever Route PRN Reason Start Time Stop Time Status Last Admin Dose Admin Acetaminophen (Tylenol) 650 mg Q4H PRN ORAL fever 06/04/19 16:55 07/04/19 16:54 Acetaminophen (Tylenol) 650 mg Q4H PRN ORAL Mild Pain (Pain Scale 1-3) 06/04/19 16:56 07/04/19 16:55 06/05/19 12:21 Bisacodyl (Dulcolax) 10 mg HSPRN PRN RECTAL Constipation 06/04/19 21:00 07/04/19 20:59 Chlorhexidine Gluconate (Sammie-Hex 2%) 1 applic DAILY@2000 TOPIC 06/12/19 20:00 07/12/19 19:59 06/12/19 20:14 Dextrose (Dextrose 50%) 25 ml Q30M PRN IV Hypoglycemia 06/04/19 16:55 07/04/19 16:54 Dextrose (Dextrose 50%) 50 ml Q30M PRN IV Hypoglycemia 06/04/19 16:55 07/04/19 16:54 Diphenhydramine HCl (Benadryl) 25 mg Q6H PRN ORAL Itching/Pruritis 06/04/19 16:54 07/04/19 16:53 Docusate Sodium (Colace) 100 mg EVERY 12 HOURS ORAL 06/04/19 21:00 07/04/19 20:59 06/10/19 08:28 Enoxaparin Sodium (Lovenox) 40 mg DAILY SUBQ 06/10/19 09:00 07/10/19 08:59 Escitalopram Oxalate (Lexapro) 10 mg DAILY ORAL 06/13/19 09:00 07/13/19 08:59 Heparin Sodium/ Sodium Chloride (Heparin 1000 units/500ml Premix) 1,000 unit ONCE PRN IV PICC 06/13/19 08:30 06/13/19 23:59 Hydromorphone HCl (Dilaudid) 1 mg Q4H PRN IVP PAIN 4-10 06/11/19 21:45 06/18/19 21:44 06/13/19 16:10 Levothyroxine Sodium (Synthroid) 200 mcg DAILY@0630 ORAL 06/05/19 06:30 07/05/19 06:29 06/13/19 06:00 Lidocaine HCl (Xylocaine 1% 30ml) 30 ml ONCE PRN INJ picc 06/13/19 08:29 06/13/19 23:59 Meropenem 1 gm/ Sodium Chloride 55 ml @ 110 mls/hr Q8H IVPB 06/12/19 01:00 06/15/19 00:59 06/13/19 16:09 Mirtazapine (Remeron) 15 mg BEDTIME ORAL 06/04/19 21:00 07/04/19 20:59 06/12/19 21:30 Ondansetron HCl (Zofran) 4 mg Q6H PRN IVP Nausea & Vomiting 06/04/19 16:54 07/04/19 16:53 Sennosides (Senokot) 17.2 mg BEDTIME ORAL 06/04/19 21:00 07/04/19 20:59 06/11/19 20:16 Sodium Chloride 1,000 ml @ 75 mls/hr [id number] IV 06/05/19 12:30 07/05/19 12:29 06/13/19 06:00 Tamsulosin HCl (Flomax) 0.4 mg BEDTIME ORAL 06/04/19 21:00 07/04/19 20:59 06/11/19 20:16 Temazepam (RestoriL) 7.5 mg HSPRN PRN ORAL Insomnia 06/12/19 22:00 06/19/19 21:59 06/12/19 22:47 Vancomycin HCl (Vanco rx to dose) 1 ea DAILY PRN MISC Per rx protocol 06/12/19 19:00 07/12/19 18:59 Vancomycin HCl 750 mg/Sodium Chloride 275 ml @ 183.333 mls/hr Q24H IVPB 06/13/19 20:00 06/18/19 19:59 Celine Yi MD Jun 13, 2019 19:02
--- NOTE | 2019-06-13 19:16 | NUR ---
HAND-OFF: Report given to Devin BOYCE. Patient sitting up in bed. Not in distress. All IV lines patent and intact. Call light within reach. Bed in lowest position.
[2019-06-13 20:00] VITALS: BP 117/59
[2019-06-13] MEDS: Dyna-Hex 2% Top Sol 2oz TOPIC SCH (20:12)
[2019-06-13] MEDS: Vancomycin 750mg/NS 275ml IVPB SCH ×2 (20:13)
--- NOTE | 2019-06-13 20:20 | NUR ---
NURSE NOTES: Patient in bed, awake, alert and verbally responsive. ABle to make needs known. REspiration is even and unlabored. Abdomen is soft and non distended. Skin is warm and dry to touch, dressing on bilateral stump clean. Patient complained of pain , given PRN pain medication. IV site noted. Right upper arm midline noted, iv fluid is infusing as ordered. Call light is at bedside. Bed in low and locked position. Will continue plan of care.
[2019-06-13] MEDS: Sennosides 8.6mg tab ORAL SCH (21:00)
[2019-06-13] MEDS: Tamsulosin 0.4mg cap ORAL SCH (21:00)
[2019-06-14] VITALS: BP 115/66
[2019-06-14] MEDS: Meropenem 1 GM in NS 55 ML IVPB SCH ×3 (00:02→16:08)
[2019-06-14] MEDS: HYDROmorphone 1mg/ml Carpuject IVP PRN ×6 (00:03→20:13)
--- NOTE | 2019-06-14 00:05 | Psych Consult Progress Note ---
Psychiatry Progress Note Psychiatry Progress Note Medications Current Medications Medications (Trade) Dose Ordered Sig/Trever Route PRN Reason Start Time Stop Time Status Last Admin Dose Admin Acetaminophen (Tylenol) 650 mg Q4H PRN ORAL fever 06/04/19 16:55 07/04/19 16:54 Acetaminophen (Tylenol) 650 mg Q4H PRN ORAL Mild Pain (Pain Scale 1-3) 06/04/19 16:56 07/04/19 16:55 06/05/19 12:21 Bisacodyl (Dulcolax) 10 mg HSPRN PRN RECTAL Constipation 06/04/19 21:00 07/04/19 20:59 Chlorhexidine Gluconate (Sammie-Hex 2%) 1 applic DAILY@1999 TOPIC 06/12/19 20:00 07/12/19 19:59 06/13/19 20:12 Dextrose (Dextrose 50%) 25 ml Q30M PRN IV Hypoglycemia 06/04/19 16:55 07/04/19 16:54 Dextrose (Dextrose 50%) 50 ml Q30M PRN IV Hypoglycemia 06/04/19 16:55 07/04/19 16:54 Diphenhydramine HCl (Benadryl) 25 mg Q6H PRN ORAL Itching/Pruritis 06/04/19 16:54 07/04/19 16:53 Docusate Sodium (Colace) 100 mg EVERY 12 HOURS ORAL 06/04/19 21:00 07/04/19 20:59 06/10/19 08:28 Enoxaparin Sodium (Lovenox) 40 mg DAILY SUBQ 06/10/19 09:00 07/10/19 08:59 Escitalopram Oxalate (Lexapro) 10 mg DAILY ORAL 06/13/19 09:00 07/13/19 08:59 Hydromorphone HCl (Dilaudid) 1 mg Q4H PRN IVP PAIN 4-10 06/11/19 21:45 06/18/19 21:44 06/13/19 20:14 Levothyroxine Sodium (Synthroid) 200 mcg DAILY@0630 ORAL 06/05/19 06:30 07/05/19 06:29 06/13/19 06:00 Meropenem 1 gm/ Sodium Chloride 55 ml @ 110 mls/hr Q8H IVPB 06/14/19 01:00 06/17/19 00:59 Mirtazapine (Remeron) 15 mg BEDTIME ORAL 06/04/19 21:00 07/04/19 20:59 06/13/19 21:33 Ondansetron HCl (Zofran) 4 mg Q6H PRN IVP Nausea & Vomiting 06/04/19 16:54 07/04/19 16:53 Sennosides (Senokot) 17.2 mg BEDTIME ORAL 06/04/19 21:00 07/04/19 20:59 06/11/19 20:16 Sodium Chloride 1,000 ml @ 75 mls/hr [id number] IV 06/05/19 12:30 07/05/19 12:29 06/13/19 21:30 Tamsulosin HCl (Flomax) 0.4 mg BEDTIME ORAL 06/04/19 21:00 07/04/19 20:59 06/11/19 20:16 Temazepam (RestoriL) 7.5 mg HSPRN PRN ORAL Insomnia 06/12/19 22:00 06/19/19 21:59 06/13/19 21:33 Vancomycin HCl (Vanco rx to dose) 1 ea DAILY PRN MISC Per rx protocol 06/12/19 19:00 07/12/19 18:59 Vancomycin HCl 750 mg/Sodium Chloride 275 ml @ 183.333 mls/hr Q24H IVPB 06/13/19 20:00 06/18/19 19:59 06/13/19 20:13 Allergies: Coded Allergies: No Known Allergies (Unverified , 01/04/17) Objective Data Height (Feet): 5 Height (Inches): 5.00 Weight (Pounds): 194 Assessment/Plan Status: Yoon Swanson MD Jun 14, 2019 00:05
[2019-06-14 04:00] VITALS: BP 124/62
--- NOTE | 2019-06-14 04:15 | NUR ---
NURSE NOTES: Patient complained of pain 10/10 given PRn pain medication as ordered. Patient is awake, alert x 4. call light is at bedside. Will reassess.
--- NOTE | 2019-06-14 06:24 | NUR ---
NURSE NOTES: Patient refused blood draw in the AM. Educated patient refused, will ask again.
--- NOTE | 2019-06-14 07:01 | NUR ---
HAND-OFF: Report given to Koko Angel.
--- NOTE | 2019-06-14 07:15 | NUR ---
NURSE NOTES: Received pt in bed, sleeping. No s/s of distress. RA. IV on LISA noted. Midline on MALLIKA noted, running NS @ 75 ml/hr. Side rails x 2. Bed in the lowest, locked, and alarm on. Call light within reach. Will continue to monitor
[2019-06-14 08:00] VITALS: BP 103/57
[2019-06-14] MEDS: Enoxaparin 40mg Inj SUBQ SCH (09:00)
[2019-06-14] MEDS: Docusate 100mg cap ORAL SCH ×2 (09:00→20:05)
--- NOTE | 2019-06-14 09:04 | Diagnostic Imaging Report ---
. Indications: Needs long-term IV access Technique: Ultrasound confirms patent compressible right brachial vein. Total sterile technique, including sterile probe cover and sterile gel, hat, mask, sterile gown, large sterile drape, and preparation with 2% chlorhexidine utilized. Local anesthesia with 1% lidocaine. Under real-time ultrasound guidance, puncture ] vein using 21-gauge needle, documented and archived, passage 0.018 guidewire under direct fluoroscopy. This would not pass beyond the level of the axillary vein. 4 [place] peel-away sheath was inserted, followed by introduction of a 4 [place] Kumpe catheter. This was used to inject contrast, and limited axillary venogram was performed. This demonstrated extensive central venoocclusive disease, although there was an apparent pathway into the axillary vein visible. A 0.035 guidewire was successfully manipulated into the superior vena cava and then exchanged for a 0.018 guidewire. However, within the PICC was placed, it would not pass beyond all the venous stenoses. Extensive manipulations performed, and including attempt at passing a single lumen catheter. However, this would not pass centrally. Finally, the catheter was cut to 20 cm and left with the tip in the axillary vein, suitable for use as a midline. Peel-away sheath was removed and the catheter was fixed to the skin. Patient tolerated procedure well, without immediate complication. Digital radiograph documents satisfactory catheter tip position, at the right axillary vein. Total fluoroscopy time 586.7 seconds. Total dose area product 2 mGym2 Total number of images: 1 Impression: Placement of right arm PICC, as described, unable to pass beyond the axillary vein and therefore cut short, suitable for use as a midline
[2019-06-14 12:00] VITALS: BP 110/57
[2019-06-14 16:00] VITALS: BP 111/73
--- NOTE | 2019-06-14 16:15 | General Progress Note ---
Assessment/Plan Status: stable Assessment/Plan: #Dysuria #Hematuria #Acute UTI #Leukocytosis - downtrending #Suspected BPH -Continue empiric abx (Ceftraixone / -06/05), (meropenem for 3 more days) -UA + for UTI, f/u urine culture. -BCx (06/05) - e. coli -ID following -Dilaudid for pain. -Continue flomax 0.4 mg qhs, for probable BPH. #right BKA stump pain #hx of bilateral BKA #Right proximal tibia osteo -cont. Wound care. -Continue weekly wound care clinic f/u on Mondays outpatient. -XR of femur w/evidence of chronic osteo -MRI results reviewed -Stumps debrided at bedside today -cont. pain management -d/w ID, continue vanco and juancho x 6 weeks total -Midline catheter placed #Thrombocytopenia plts dropped from 200 on admission to 91 on 06/08 -d/c heparin DVT PPx, on lovenox -HIT panel pending -labs pending for today -no signs of bleeding at this time, cont. to monitor #Sinus tachycardia - improved EKG with sinus tachycardia. Likely from infection, dehydration. -IV fluids at 75 mL/hr. -Echocardiogram pending -D dimer elevated -CT angio chest ordered, reviewed and negative for PE -thyroid function -continue telemetry -Hold beta blockers etc #Insomnia -continue qhs home meds (mirtazapine, remeron). #Hypothyroidism -Continue home synthroid. #Dispo -SNF per CM #DNAR status -noted. DVT PPX - lovenox Subjective Date patient seen: Jun 14, 2019 Time patient seen: 13:25 ROS Limited/Unobtainable: No Constitutional: Denies: chills, fever Cardiovascular: Denies: chest pain Respiratory: Denies: cough Gastrointestinal/Abdominal: Denies: abdominal pain Neurologic/Psychiatric: Denies: anxiety, depressed Allergies: Coded Allergies: No Known Allergies (Unverified , 01/04/17) Subjective Follow up osteomyelitis MRI with marrow edema and enhancement of the proximal tibial stump concerning for osteo. Will need 6 weeks of vanco and meropenem Midline catheter placed Case management working on SNF placement, likely will get a bed tomorrow. Objective Last 24 Hour Vital Signs Date Time Temp Pulse Resp B/P (MAP) Pulse Ox O2 Delivery O2 Flow Rate FiO2 06/14/19 12:00 97.6 71 20 110/57 (74) 97 06/14/19 09:00 Room Air 06/14/19 08:00 97.7 77 20 103/57 (72) 97 06/14/19 04:00 97.3 67 20 124/62 (82) 93 06/14/19 00:00 98.2 74 18 115/66 (82) 94 06/13/19 21:00 Room Air 06/13/19 20:00 98.1 74 18 117/59 (78) 95 Intake and Output 06/13/19 06/14/19 19:00 07:00 Intake Total 1740 ml 945.00 ml Output Total 1800 ml Balance -60 ml 945.00 ml Intake Oral 840 ml IV Total 900 ml 705.00 ml Other 240 ml Output Urine Total 1800 ml # Voids 5 # Bowel Movements 1 Height (Feet): 5 Height (Inches): 5.00 Weight (Pounds): 194 General Appearance: no apparent distress, alert Neck: supple, normal inspection Cardiovascular: normal rate, regular rhythm Respiratory/Chest: lungs clear, normal breath sounds, no respiratory distress Abdomen: non tender, soft Roman Mendez MD Jun 14, 2019 16:15
--- NOTE | 2019-06-14 19:13 | NUR ---
HAND-OFF: Report given to AUSTEN Keita.
--- NOTE | 2019-06-14 19:15 | NUR ---
NURSE NOTES: Pt. received from AUSTEN Vela. Pt. AAOx4, on room air, no complaints of pain at this time, breathing is even and unlabored. PICC MALLIKA asymptomatic, intact, and patent, inserted on 06/12; NS @ 75cc/hr. Bed is low and locked, side rails x2 up, bed alarm active, and call light is in reach. Will continue to monitor.
[2019-06-14 20:00] VITALS: BP 111/66
[2019-06-14] MEDS: Sennosides 8.6mg tab ORAL SCH (20:05)
[2019-06-14] MEDS: Tamsulosin 0.4mg cap ORAL SCH (20:05)
[2019-06-14] MEDS: Vancomycin 750mg/NS 275ml IVPB SCH ×2 (20:12)
[2019-06-14] MEDS: Dyna-Hex 2% Top Sol 2oz TOPIC SCH (20:12)
--- NOTE | 2019-06-14 21:18 | Cardiology Progress Note ---
Assessment/Plan Status: stable Assessment/Plan Assessment/Plan Problem List: (1) Leg pain (2) Hypothyroid (3) UTI (urinary tract infection) (4) Hypomagnesemia (5) Chronic wound of extremity (6) Tachycardia/Ectopy/PVCs Tachycardia has improved with fluids and pain control. -IV fluids -Echocardiogram negative for endocarditis -Check D dimer -> elevated --> CTA negative for PE -IV abx per ID/Urology -Check thyroid function studies -continue telemetry -Hold beta blockers -Wound care consult -PICC line for nursing home antibiotics Subjective Cardiovascular: Reports: no symptoms Respiratory: Reports: no symptoms Gastrointestinal/Abdominal: Reports: no symptoms Genitourinary: Reports: no symptoms Subjective No acute events, no fevers, WBC normal, troponin negative, tachycardia improved with fluids, D dimer elevated, CTA negative for PE, thyroid function pending. Tolerating Abx, pain controlled. no signs of bleeding. MRI showed osteomyelitis, PICC line placed. Patient refusing lab draws. Objective Last 24 Hour Vital Signs Date Time Temp Pulse Resp B/P (MAP) Pulse Ox O2 Delivery O2 Flow Rate FiO2 06/14/19 20:00 97.5 72 20 111/66 (81) 97 06/14/19 16:00 97.8 74 19 111/73 (86) 96 06/14/19 12:00 97.6 71 20 110/57 (74) 97 06/14/19 09:00 Room Air 06/14/19 08:00 97.7 77 20 103/57 (72) 97 06/14/19 04:00 97.3 67 20 124/62 (82) 93 06/14/19 00:00 98.2 74 18 115/66 (82) 94 General Appearance: no apparent distress, alert EENT: PERRL/EOMI, normal ENT inspection, TMs normal, pharynx normal Neck: non-tender, normal alignment, supple, normal inspection, no JVD Rhythm: NSR Cardiovascular: normal peripheral pulses, normal rate Respiratory/Chest: chest wall non-tender, lungs clear, normal breath sounds, no respiratory distress, no accessory muscle use, respiratory distress Abdomen: normal bowel sounds, non tender, soft, no organomegaly, no mass Extremities: normal range of motion, non-tender, normal inspection, no calf tenderness, no swelling Neurologic: information systems security analyst II-XII grossly normal, no motor/sensory deficits Intake and Output 06/13/19 06/14/19 19:00 07:00 Intake Total 1740 ml 945.00 ml Output Total 1800 ml Balance -60 ml 945.00 ml Intake Oral 840 ml IV Total 900 ml 705.00 ml Other 240 ml Output Urine Total 1800 ml # Voids 5 # Bowel Movements 1 Emeka Grace MD Jun 14, 2019 21:18
--- NOTE | 2019-06-14 21:45 | NUR ---
NURSE NOTES: Dressings changed on bilateral amputation sites per MD orders.
--- NOTE | 2019-06-14 23:39 | Psych Consult Progress Note ---
Psychiatry Progress Note Psychiatry Progress Note Medications Current Medications Medications (Trade) Dose Ordered Sig/Trever Route PRN Reason Start Time Stop Time Status Last Admin Dose Admin Acetaminophen (Tylenol) 650 mg Q4H PRN ORAL fever 06/04/19 16:55 07/04/19 16:54 Acetaminophen (Tylenol) 650 mg Q4H PRN ORAL Mild Pain (Pain Scale 1-3) 06/04/19 16:56 07/04/19 16:55 06/05/19 12:21 Bisacodyl (Dulcolax) 10 mg HSPRN PRN RECTAL Constipation 06/04/19 21:00 07/04/19 20:59 Chlorhexidine Gluconate (Sammie-Hex 2%) 1 applic DAILY@2000 TOPIC 06/12/19 20:00 07/12/19 19:59 06/14/19 20:12 Dextrose (Dextrose 50%) 25 ml Q30M PRN IV Hypoglycemia 06/04/19 16:55 07/04/19 16:54 Dextrose (Dextrose 50%) 50 ml Q30M PRN IV Hypoglycemia 06/04/19 16:55 07/04/19 16:54 Diphenhydramine HCl (Benadryl) 25 mg Q6H PRN ORAL Itching/Pruritis 06/04/19 16:54 07/04/19 16:53 Docusate Sodium (Colace) 100 mg EVERY 12 HOURS ORAL 06/04/19 21:00 07/04/19 20:59 06/10/19 08:28 Enoxaparin Sodium (Lovenox) 40 mg DAILY SUBQ 06/10/19 09:00 07/10/19 08:59 Escitalopram Oxalate (Lexapro) 10 mg DAILY ORAL 06/13/19 09:00 07/13/19 08:59 Hydromorphone HCl (Dilaudid) 1 mg Q4H PRN IVP PAIN 4-10 06/11/19 21:45 06/18/19 21:44 06/14/19 20:13 Levothyroxine Sodium (Synthroid) 200 mcg DAILY@0630 ORAL 06/05/19 06:30 07/05/19 06:29 06/14/19 05:37 Meropenem 1 gm/ Sodium Chloride 55 ml @ 110 mls/hr Q8H IVPB 06/14/19 01:00 06/17/19 00:59 06/14/19 16:08 Mirtazapine (Remeron) 15 mg BEDTIME ORAL 06/04/19 21:00 07/04/19 20:59 06/14/19 20:12 Ondansetron HCl (Zofran) 4 mg Q6H PRN IVP Nausea & Vomiting 06/04/19 16:54 07/04/19 16:53 Sennosides (Senokot) 17.2 mg BEDTIME ORAL 06/04/19 21:00 07/04/19 20:59 06/11/19 20:16 Sodium Chloride 1,000 ml @ 75 mls/hr [id number] IV 06/05/19 12:30 07/05/19 12:29 06/14/19 09:54 Tamsulosin HCl (Flomax) 0.4 mg BEDTIME ORAL 06/04/19 21:00 07/04/19 20:59 06/11/19 20:16 Temazepam (RestoriL) 7.5 mg HSPRN PRN ORAL Insomnia 06/12/19 22:00 06/19/19 21:59 06/14/19 21:42 Vancomycin HCl (Vanco rx to dose) 1 ea DAILY PRN MISC Per rx protocol 06/12/19 19:00 07/12/19 18:59 Vancomycin HCl 750 mg/Sodium Chloride 275 ml @ 183.333 mls/hr Q24H IVPB 06/13/19 20:00 06/18/19 19:59 06/14/19 20:12 Neurological/Psychiatric: Reports: anxiety, depressed, emotional problems Allergies: Coded Allergies: No Known Allergies (Unverified , 01/04/17) Objective Data Height (Feet): 5 Height (Inches): 5.00 Weight (Pounds): 194 General Appearance: WD/WN, no apparent distress, alert, alert oriented x3 Additional Comments: alert and oriented times to self, place, situation, and date. Mood is depressed and irritable. Affect is constricted, congruent with mood. Thought process, linear and goal oriented. Thought content, no suicidal or homicidal ideation. Cognition is impaired. Insight and judgment is limited. ASSESSMENT: Major depressive disorder. PLAN: 1. Continue Remeron. 2. Provide the patient with reality orientation and supportive therapy. Assessment/Plan Status: stable Farhadi,Pantea MD Jun 14, 2019 23:39
[2019-06-15] VITALS: BP 129/68
[2019-06-15] MEDS: HYDROmorphone 1mg/ml Carpuject IVP PRN ×4 (00:14→12:40)
[2019-06-15] MEDS: Meropenem 1 GM in NS 55 ML IVPB SCH ×2 (00:14→09:12)
[2019-06-15 04:00] VITALS: BP 129/65
--- NOTE | 2019-06-15 07:30 | NUR ---
HAND-OFF: Report given to AUSTEN Parra .
--- NOTE | 2019-06-15 07:35 | NUR ---
NURSE NOTES: Made initial rounds, patient is in the bed alert and awake. Verbally responsive; nurse exchanges greeting with patient. Assessment done, respiration is even and unlabored on room air. Patient denies any chest pain and discomfort. Denies any urgency to void. Patient has MALLIKA picc line. Site is intact. No bleeding, swelling and coolness noted on MALLIKA. Bilateral stump covered with clean dry dressing. bed is in lock position for safety precaution. Call light is placed within patient's reach.
[2019-06-15 08:00] VITALS: BP 128/71
[2019-06-15] MEDS: Docusate 100mg cap ORAL SCH (09:00)
[2019-06-15] MEDS: Enoxaparin 40mg Inj SUBQ SCH (09:00)
--- NOTE | 2019-06-15 11:24 | Discharge Summary ---
Discharge Summary Hospital Course Date of Admission Jun 04, 2019 at 15:12 Date of Discharge 06/15/19 Admitting Diagnosis UTI Osteomyelitis HPI Eusebio Cheung is a 83 year old male who was admitted on Jun 04, 2019 at 15:12 for Urinary Tract Infection Consultations ID Hospital Course mr. cheung is a 83 year old male with hx of melanoma in remission, s/p bilateral BKA, presenting who initially presented with ~3 days of urinary symptoms, urinary frequency, dysuria and hematuria. He also reports prior symptoms of BPH , such as difficulty starting and ending urinary stream. Found to have ESBL E. Coli UTI and started on meropenem per ID recs. Patient was having persistent right stump pain, MRI was done which showed right proximal tibia osteo. Midline placed, plan for meropenem and vancomycin for 6 weeks total, today is vanco day #3 and meropenem day#9. Patient will be discharged to SNF for ongoing IV abx. #Dysuria #Hematuria #Acute UTI #Leukocytosis - downtrending #Suspected BPH #right BKA stump pain #hx of bilateral BKA #Right proximal tibia osteo #Thrombocytopenia #Sinus tachycardia #Insomnia #Hypothyroidism #DNAR status Time spent preparing dischareg was 35 minutes which includes time spent coordinating with RN, sample case porter and consulting physicians. Discharge Medications New Medications: Escitalopram Oxalate* (Lexapro*) 10 Mg Tablet 10 MG ORAL DAILY for 30 Days, #30 TAB Tamsulosin HCl (Flomax) 0.4 Mg Cap.er.24h 0.4 MG ORAL BEDTIME for 30 Days, #30 CAP Continued Medications: Acetaminophen* (Acetaminophen 325MG Tablet*) 325 Mg Tablet 650 MG ORAL Q4H PRN for Mild Pain/Temp > 100.5 Bisacodyl (Bisacodyl) 10 Mg Supp.rect 10 MG RC DAILY PRN for Constipation, SUPP Levothyroxine Sodium* (Synthroid*) 100 Mcg Tablet 200 MCG ORAL DAILY, TAB Take in the morning on an empty stomach, at least 30 minutes before food. Magnesium Hydroxide* (Milk Of Magnesia*) 400 Mg/5 Ml Oral.susp 30 ML ORAL DAILY PRN for Constipation, ML Mirtazapine* (Remeron*) 15 Mg Tablet 15 MG ORAL BEDTIME for depression, TAB Omeprazole (Omeprazole) 40 Mg Capsule.dr 40 MG ORAL DAILY, CAP Sennosides (Senna Laxative) 8.6 Mg Tablet 17.2 MG PO BEDTIME, TAB Temazepam (Restoril*) 30 Mg Capsule 45 MG ORAL BEDTIME IF PT AWAKES IN THE MIDDLE OF THE NIGHT, CAN TAKE ADDITIONAL 15MG Vancomycin/Water For Inj (Vancomycin 1.5 Gram/300 ml Bag) 1.5 Gm/300 Ml Piggyback 1.5 GM IV DAILY for 9 Days, BAG ADJUST PER PHARMACY PROTOCOL. ADMINISTER FOR 9 DAYS STARTING 01/08/2019 Discontinued Medications: Acetaminophen* (Acetaminophen Extra Strength*) 500 Mg Tablet 500 MG ORAL Q8HR PRN for For Pain, TAB Hydromorphone HCl/Pf (Dilaudid 2 mg/ml Syringe) 2 Mg/1 Ml Syringe 2 MG IJ EVERY 3 HOURS PRN for Severe Pain (Pain Scale 7-10) Levofloxacin* (Levaquin*) 500 Mg Tablet 250 MG ORAL DAILY for 9 Days, TAB TAKE FOR 9 DAYS STARTING 01/08/2019 Trimethoprim/Sulfamethoxazole 160/800* (Bactrim Ds Tablet*) 1 Each Tablet 1 TAB ORAL TWICE A DAY for 10 Days, TAB Discharge Condition Upon Discharge: improving Discharge Vital Signs Last Vital Signs Date Time Temp Pulse Resp B/P (MAP) Pulse Ox O2 Delivery O2 Flow Rate FiO2 06/15/19 08:00 97.8 79 20 128/71 (90) 95 06/14/19 21:00 Room Air 06/09/19 20:05 21 Discharge Disposition Patient was discharged to SNF Discharge Diagnoses: (1) Osteomyelitis (2) Infection of amputation stump, right lower extremity (3) Chronic wound of extremity (4) Hypothyroid Roman Mendez MD Jun 15, 2019 11:24
[2019-06-15 12:00] VITALS: BP 117/73
--- NOTE | 2019-06-15 12:37 | Cardiology Progress Note ---
Assessment/Plan Status: stable Assessment/Plan Assessment/Plan Problem List: (1) Leg pain (2) Hypothyroid (3) UTI (urinary tract infection) (4) Hypomagnesemia (5) Chronic wound of extremity (6) Tachycardia/Ectopy/PVCs Tachycardia has improved with fluids and pain control. -IV fluids -Echocardiogram negative for endocarditis -Check D dimer -> elevated --> CTA negative for PE -IV abx per ID/Urology -Check thyroid function studies -continue telemetry -Hold beta blockers -Wound care consult -PICC line for residential antibiotics Subjective Subjective No acute events, no fevers, WBC normal, troponin negative, tachycardia improved with fluids, D dimer elevated, CTA negative for PE, thyroid function pending. Tolerating Abx, pain controlled. no signs of bleeding. MRI showed osteomyelitis, PICC line placed. Patient refusing lab draws. Objective Last 24 Hour Vital Signs Date Time Temp Pulse Resp B/P (MAP) Pulse Ox O2 Delivery O2 Flow Rate FiO2 06/15/19 09:00 Room Air 06/15/19 08:00 97.8 79 20 128/71 (90) 95 06/15/19 04:00 97.7 68 20 129/65 (86) 95 06/15/19 00:00 97.7 71 20 129/68 (88) 96 06/14/19 21:00 Room Air 06/14/19 20:00 97.5 72 20 111/66 (81) 97 06/14/19 16:00 97.8 74 19 111/73 (86) 96 General Appearance: no apparent distress, alert EENT: PERRL/EOMI, normal ENT inspection, TMs normal, pharynx normal Neck: non-tender, normal alignment, supple, normal inspection, no JVD Rhythm: NSR Cardiovascular: normal peripheral pulses, normal rate, regular rhythm Respiratory/Chest: chest wall non-tender, lungs clear, normal breath sounds Abdomen: normal bowel sounds, non tender, soft, no organomegaly, no mass Extremities: normal range of motion, non-tender, normal inspection, no calf tenderness, no swelling Neurologic: director of programming II-XII grossly normal, no motor/sensory deficits Intake and Output 06/14/19 06/15/19 19:00 07:00 Intake Total 800 ml 930.000 ml Output Total 2000 ml 1500 ml Balance -1200 ml -570.000 ml Intake Oral 800 ml IV Total 930.000 ml Output Urine Total 2000 ml 1500 ml # Bowel Movements 1 Microbiology Date/Time Source Procedure Growth Status 06/14/19 04:10 Urine,Clean Catch Urine Culture - Preliminary NO GROWTH AFTER 24 HOURS Resulted Emeka Grace MD Jun 15, 2019 12:37
--- NOTE | 2019-06-15 13:05 | NUR ---
PRODUCTION MACHINE TENDER NOTES PT DISCHARGED TO [facility] ROOM [address] BED A. NURSE TO CALL REPORT TO [phone]. SKILLED.
--- NOTE | 2019-06-15 13:29 | CDS Physician Query ---
Clarification is required for compliance, coding accuracy, and to reflect severity of illness for this patient. Dear Dr. Roman Ma Date: 06/15/2019 CDS Name: Luz Maria Gordillo Clinical Documentation states: Discharge note: 83 year old male with hx of melanoma in remission, s/p bilateral BKA, presenting who initially presented with ~3 days of urinary symptoms, urinary frequency, dysuria and hematuria. He also reports prior symptoms of BPH, such as difficulty starting and ending urinary stream. Found to have ESBL E. Coli UTI and started on meropenem per ID recs. ID note: esbl e.coli uti/pyelonephritis, sepsis, leukocytosis, fevers MRI - c/w right leg/tibial osteomyelitis A diagnosis of Sepsis was made in the medical record. Upon review, it is difficult to determine whether this diagnosis has been ruled in, ruled out,or is still being worked up. Please indicate below the status of the aforementioned diagnosis. [] Treated and resolve [] Presumed and treated [] Currently under treatment [] Still being worked-up [] Ruled out Present on Admission: [] Yes [] No [] Clinically Undetermined Physician signature Date Please also document in your Progress Notes and/or Discharge Summary and indicate if the condition was present on admission. MTDD
--- NOTE | 2019-06-15 14:30 | NUR ---
NURSE NOTES: patient discharged AMA at this time. patient stated that he wants to go home before going to [facility]. educated patient the need to be transfer properly per hospital protocol. patient is non-compliant. signed AMA paper, and inventory form. MALLIKA PICC line is in-place, capped line at this time. called [facility], spoke with sarah and gave a report. patient escorted to the lobby, and left hospital via a private vehicle in company of a regional dedicated truck driver.
== END 2019-06-15 14:31 | disposition left against medical advice (07) | DRG 854 ==
LOC: EMR 10:40 → EDBEDREQ 14:05 → 4E 15:12
PROC: 0KBS0ZZ Excision of Right Lower Leg Muscle, Open Approach (ICD-10-PCS; 2019-06-11)
PROC: 0KBT0ZZ Excision of Left Lower Leg Muscle, Open Approach (ICD-10-PCS; 2019-06-11)
PROC: 05H733Z Insertion of Infusion Device into Right Axillary Vein, Percutaneous Approach (ICD-10-PCS; principal; 2019-06-13)
DX: A41.9 Sepsis, unspecified organism (principal); N39.0 Urinary tract infection, site not specified; T87.43 Infection of amputation stump, right lower extremity; M86.661 Other chronic osteomyelitis, right tibia and fibula; Z16.12 Extended spectrum beta lactamase (ESBL) resistance; E86.0 Dehydration; R31.9 Hematuria, unspecified; E83.42 Hypomagnesemia; E16.2 Hypoglycemia, unspecified; Z89.512 Acquired absence of left leg below knee; Z89.511 Acquired absence of right leg below knee; G47.00 Insomnia, unspecified; E03.9 Hypothyroidism, unspecified; Z66 Do not resuscitate; F32.9 Major depressive disorder, single episode, unspecified; F41.9 Anxiety disorder, unspecified; B96.20 Unspecified Escherichia coli [E. coli] as the cause of diseases classified elsewhere; D69.6 Thrombocytopenia, unspecified; R00.0 Tachycardia, unspecified; N40.1 Benign prostatic hyperplasia with lower urinary tract symptoms; R35.0 Frequency of micturition; Z85.820 Personal history of malignant melanoma of skin
CPT/HCPCS: 36415; 36569; 71045; 71275; 76937; 80048; 80053; 81003; 82550; 83605; 83690; 83735; 83880; 84484; 85007; 85025; 85379; 85610; 85651; 85730; 87086; 87181; 93005; 94664; 96361; 96365; 96375; 99285; A9585; J7030

== ENCOUNTER 2019-09-24 09:55 | Outpatient (RCR) | payer MEDICARE, MEDICAID ==
[~2019-09-24] VITALS: Ht 165.1 cm; Wt 74.8 kg
[~2019-09-24 09:55] MED LIST changes: +MIRTAZAPINE15 MG ORAL
== END 2019-10-02 | disposition home or self-care (01) ==
LOC: WCC 09:55
DX: L97.815 Non-pressure chronic ulcer of other part of right lower leg with muscle involvement without evidence of necrosis (principal); L97.822 Non-pressure chronic ulcer of other part of left lower leg with fat layer exposed; T81.31XA Disruption of external operation (surgical) wound, not elsewhere classified, initial encounter; X58.XXXA Exposure to other specified factors, initial encounter; Y92.9 Unspecified place or not applicable; L89.894 Pressure ulcer of other site, stage 4
CPT/HCPCS: 11042; 11043

== ENCOUNTER 2019-10-08 08:45 | Outpatient (RCR) | payer MEDICARE, MEDICAID ==
[~2019-10-08] VITALS: Ht 165.1 cm; Wt 74.8 kg
== END 2019-11-02 | disposition home or self-care (01) ==
LOC: WCC 08:45
DX: L97.815 Non-pressure chronic ulcer of other part of right lower leg with muscle involvement without evidence of necrosis (principal); L97.822 Non-pressure chronic ulcer of other part of left lower leg with fat layer exposed; T81.31XA Disruption of external operation (surgical) wound, not elsewhere classified, initial encounter; Z96.653 Presence of artificial knee joint, bilateral; E03.9 Hypothyroidism, unspecified; Z85.820 Personal history of malignant melanoma of skin; X58.XXXA Exposure to other specified factors, initial encounter; Y92.9 Unspecified place or not applicable
CPT/HCPCS: 11043; 11044

== ENCOUNTER 2019-11-05 11:39 | Outpatient (RCR) | payer MEDICARE, MEDICAID | END 2019-12-03 | disposition home or self-care (01) | LOC: WCC 11:39 | DX: L97.815 Non-pressure chronic ulcer of other part of right lower leg with muscle involvement without evidence of necrosis (principal); L97.822 Non-pressure chronic ulcer of other part of left lower leg with fat layer exposed; T81.31XA Disruption of external operation (surgical) wound, not elsewhere classified, initial encounter; X58.XXXA Exposure to other specified factors, initial encounter; Y92.9 Unspecified place or not applicable; Z96.653 Presence of artificial knee joint, bilateral; E03.9 Hypothyroidism, unspecified; Z85.820 Personal history of malignant melanoma of skin | CPT/HCPCS: 11043 ==

== ENCOUNTER → 2019-11-09 | Outpatient (CLI) | payer MEDICARE, MEDICAID ==
[~2019-11-09] VITALS: Ht 167.6 cm; Wt 72.6 kg
[~2019-11-09] MED LIST changes: +Heparin1,000 units/500ml Premix(Conc:2 units/ml) INJ ONE; +Heparin1,000 units/500ml Premix(Conc:2 units/ml) IV PRN; +Lidocaine 1% Plain 30 ml INJ ONE; +Lidocaine 2% 20mg/ml/Epi 0.005mg/ml 20ml vial INJ PRN; +Omnipaque-300 100ml vial INJ PRN; +ceFAZolin sod 1 GM in NS 55 ML IVPB ONE; +ceFAZolin sod 1 GM in NS 55 ML IVPB SCH
[2019-11-09 13:58] VITALS: BP 128/70
--- NOTE | 2019-11-09 14:19 | Pre-Procedure Note/Attestation ---
Pre-Procedure Note/Attestation Complete Prior to Procedure Planned Procedure: right Procedure Narrative: Tunneled PICC exchange Indications for Procedure Pre-Operative Diagnosis: Requires penitentiary IV access Attestation I attest that I discussed the nature of the procedure; its benefits; risks and complications; and alternatives (and the risks and benefits of such alternatives ), prior to the procedure, with the patient (or the patient's legal sales training representative). I attest that, if there was a reasonable possibility of needing a blood transfusion, the patient (or the patient's legal sales training representative) was given the [facility] standardized written summary, pursuant to the Nghia Dominga Blood Safety Act ([place] Health and Safety Code # 1645, as amended). I attest that I re-evaluated the patient just prior to the surgery and that there has been no change in the patient's H&P, except as documented below: Casey Osman MD Nov 09, 2019 14:19
--- NOTE | 2019-11-09 14:20 | Brief Operative Note ---
Immediate Post Operative Note Operative Note Chief Complaint: PICC malfunction Pre-op Diagnosis: Requires terminal clerk IV access Procedure: Over the wire exchange for new tunneled right IJ PICC Post-op Diagnosis: Same Post-op Diagnosis: same as pre-op Specimen: none Complications: none Condition: stable Fluids: 500cc Estimated Blood Loss: none Implant(s) used?: Yes - 6FR tunneled PICC Casey Osman MD Nov 09, 2019 14:20
--- NOTE | 2019-11-09 15:47 | Diagnostic Imaging Report ---
TUNNELED PICC EXCHANGE Indications: Needs long-term intravenous access Technique: Patient given IV Ancef . Total sterile technique, including sterile probe cover and sterile gel, sterile gloves, hand hygiene, hat, mask,, sterile gown, large sterile drape, and preparation with 2% chlorhexidine utilized. Local anesthesia with 1% lidocaine. Sr. Logistics Analyst radiograph demonstrates indwelling right sided PICC, which appears kinked at the venotomy. The indwelling right chest wall tunneled PICC was accessed with a combination of a 035 hydrophilic wire and 018 wire. After blunt dissection and traction, the indwelling catheter was removed over the wire. A new 6 [place] dual-lumen catheter was cut to length and advanced over the wire. The wire was removed and fluoroscopy was utilized to confirm position. Both catheter ports aspirated and flushed. Catheter was fixed to the skin. Patient tolerated procedure well without immediate complication. Total fluoroscopy time 122.8 seconds. Total dose: 14.92mGy Comparison: Chest radiograph dated 06/06/2019 Findings: Final fluoroscopy store demonstrates PICC in satisfactory position in the right atrium. Impression: Successful [id number] exchange of PICC, as described above
== END | disposition home or self-care (01) ==
LOC: EDSTATUS 11-07 13:30 → RAD 13:20
DX: Z79.899 Other long term (current) drug therapy (principal)
CPT/HCPCS: 36569; 76000; J0690; J1644

== ENCOUNTER 2020-04-16 06:40 | Inpatient (IN) | payer MEDICARE, MEDICAID ==
[~2020-04-16] VITALS: Ht 170.2 cm; Wt 68.0 kg
[~2020-04-16 06:40] MED LIST changes: -Heparin1,000 units/500ml Premix(Conc:2 units/ml) INJ ONE; -Heparin1,000 units/500ml Premix(Conc:2 units/ml) IV PRN; -Lidocaine 1% Plain 30 ml INJ ONE; -Lidocaine 2% 20mg/ml/Epi 0.005mg/ml 20ml vial INJ PRN; -Omnipaque-300 100ml vial INJ PRN; -ceFAZolin sod 1 GM in NS 55 ML IVPB ONE; -ceFAZolin sod 1 GM in NS 55 ML IVPB SCH
[2020-05-06 09:45] LABS: BASOPHILS % (AUTO) 0.9 % (0.0-2.0); EOSINOPHILS % (AUTO) 4.2 % (0.0-3.0); HEMATOCRIT 33.6 % (42.0-52.0); HEMOGLOBIN 11.4 G/DL (14.2-18.0); LYMPHOCYTES % (AUTO) 29.1 % (20.0-45.0); MEAN CORPUSCULAR VOLUME 91 FL (80-99); MONOCYTES % (AUTO) 8.1 % (1.0-10.0); NEUTROPHILS % (AUTO) 57.7 % (45.0-75.0); PLATELET COUNT 151 K/UL (150-450); RED BLOOD COUNT 3.69 M/UL (4.70-6.10); RED CELL DISTRIBUTION WIDTH 13.6 % (11.6-14.8); WHITE BLOOD COUNT 5.8 K/UL (4.8-10.8)
[2020-05-06 10:11] LABS: ALANINE AMINOTRANSFERASE 46 U/L (12-78); ALBUMIN 2.9 G/DL (3.4-5.0); ALBUMIN/GLOBULIN RATIO 0.7 (1.0-2.7); ALKALINE PHOSPHATASE 96 U/L (46-116); ANION GAP 11 mmol/L (5-15); ASPARTATE AMINO TRANSFERASE 50 U/L (15-37); BILIRUBIN,TOTAL 1.2 MG/DL (0.2-1.0); BLOOD UREA NITROGEN 22 mg/dL (7-18); CALCIUM 9.5 MG/DL (8.5-10.1); CARBON DIOXIDE 25 MMOL/L (21-32); CHLORIDE 107 MMOL/L (98-107); SODIUM 143 MMOL/L (136-145)
[2020-05-06 10:13] LABS: BILIRUBIN,DIRECT 0.2 MG/DL (0.0-0.3)
--- NOTE | 2020-05-06 15:51 | Diagnostic Imaging Report ---
Indication: Cough Technique: 2 views of the chest Comparison: 06/06/2019 Findings: Interim placement of a tunneled central venous catheter in the right chest. Lung infiltrates are clear. The heart size is normal. The aorta is tortuous. Impression: No acute process Central venous catheter in good position
[2020-06-12 09:34] LABS: BASOPHILS % (AUTO) 0.8 % (0.0-2.0); EOSINOPHILS % (AUTO) 3.5 % (0.0-3.0); HEMATOCRIT 34.8 % (42.0-52.0); HEMOGLOBIN 11.4 G/DL (14.2-18.0); MEAN CORPUSCULAR VOLUME 92 FL (80-99); MONOCYTES % (AUTO) 4.1 % (1.0-10.0); NEUTROPHILS % (AUTO) 68.5 % (45.0-75.0); PLATELET COUNT 215 K/UL (150-450); RED BLOOD COUNT 3.78 M/UL (4.70-6.10); RED CELL DISTRIBUTION WIDTH 14.8 % (11.6-14.8); WHITE BLOOD COUNT 8.5 K/UL (4.8-10.8)
[2020-06-12 09:42] LABS: APPEARANCE,URINE SLIGHTLY CLOUDY; BILIRUBIN, URINE NEGATIVE (NEGATIVE); COLOR,URINE PALE YELLOW; GLUCOSE, URINE (UA) NEGATIVE (NEGATIVE); KETONES,URINE NEGATIVE (NEGATIVE); LEUKOCYTE ESTERASE ,URINE 2+ (NEGATIVE); NITRITE,URINE NEGATIVE (NEGATIVE); PH,URINE 6 (4.5-8.0); PROTEIN,URINE NEGATIVE (NEGATIVE); UROBILINOGEN,URINE NORMAL MG/DL (0.0-1.0)
[2020-06-12 09:52] LABS: ALBUMIN 3.1 G/DL (3.4-5.0); ALBUMIN/GLOBULIN RATIO 0.7 (1.0-2.7); BILIRUBIN,TOTAL 0.4 MG/DL (0.2-1.0); CALCIUM 9.2 MG/DL (8.5-10.1); CREATININE 1.3 MG/DL (0.55-1.30); POTASSIUM 3.7 MMOL/L (3.5-5.1)
--- NOTE | 2020-06-12 12:20 | Diagnostic Imaging Report ---
Indication: Cough Technique: PA and lateral views of the chest Comparison: 05/06/2020 Findings: Heart size and mediastinal contours within normal limits and stable compared to the prior exam. There is no focal airspace consolidation. No pleural effusion, pneumothorax or radiographic evidence to suggest pulmonary edema. There is unchanged elevation of the left hemidiaphragm which is similar compared to the prior exam. Aorta is ectatic and tortuous. Tunneled central venous catheter again noted with the tip in the region of the upper SVC. There are degenerative changes in the spine. No acute osseous abnormality. IMPRESSION: No radiographic evidence of acute cardiopulmonary disease. Indwelling right transjugular tunneled central venous catheter
[2020-06-18] VITALS (16 sets, daily range): BP systolic 108–142; BP diastolic 58–84
[2020-06-18] MEDS ORDERED: fentaNYL 100 mcg/2 mL IV ONE (07:16)
[2020-06-18] MEDS ORDERED: Lidocaine 1% MPF 10mg/ml 5ml ONE (07:17)
[2020-06-18] MEDS ORDERED: Bupivacaine 0.5% Inj 30 ml vial INJ ONE (07:19)
[2020-06-18] MEDS ORDERED: NeoSporin Gu Irrig 1ml Amp IRRIG ONE (07:20)
[2020-06-18] MEDS ORDERED: Bacitracin 50000 Units Vial ONE (07:20)
--- NOTE | 2020-06-18 07:47 | Anethesia Preoperative Eval ---
Anesthesia Pre-op PMH/ROS General Date of Evaluation: Jun 18, 2020 Time of Evaluation: 07:43 Anesthesiologist: Kandy ASA Score: ASA 3 Mallampati Score Class I : Soft palate, uvula, fauces, pillars visible Class II: Soft palate, uvula, fauces visible Class III: Soft palate, base of uvula visible Class IV: Only hard plate visible Mallampati Classification: Class II Surgeon: Gaston Diagnosis: R knee stump pain Surgical Procedure: Revision of R knee stump Anesthesia History: none Social History: smoking - h/o Family History: no anesthesia problems Allergies: Coded Allergies: No Known Allergies (Unverified , 01/04/17) Medications: see eMAR Patient NPO?: Yes Past Medical History Cardiovascular: Reports: HTN, other - PVD; Denies: CAD, SC, valve dz, arrhythmia Pulmonary: Denies: asthma, COPD, KEL, other Gastrointestinal/Genitourinary: Reports: GERD - peptic ulcer, CRI - Elevated Cr; Denies: ESRD, other Neurologic/Psychiatric: Reports: depression/anxiety; Denies: dementia, CVA, TIA, other Endocrine: Reports: hypothyroidism; Denies: DM, steroids, other HEENT: Reports: cataract (L), cataract (R) - bilateral s/p Sx Hematology/Immune: Reports: anemia - mild; Denies: DVT, bleeding disorder, other Musculoskeletal/Integumentary: Reports: other - chronic wounds, osteomyelitis; Denies: OA, RA, DJD, DDD, edema PMH Narrative: as above PSxH Narrative: see H&P Anesthesia Pre-op Phys. Exam Physician Exam Last Vital Signs Date Time Temp Pulse Resp B/P (MAP) Pulse Ox O2 Delivery O2 Flow Rate FiO2 06/18/20 06:39 Room Air 06/18/20 06:20 97.8 111 18 142/74 (96) 98 Neurologic: CN 2-12 intact Cardiovascular: RRR, no M/R/G Respiratory: CTA Gastrointestinal: S/NT/ND Airway Exam Mallampati Score: Class II MO: limited Neck: stiff ROM: limited Teeth: missing Dentures: no upper, no lower Anesthesia Pre-op A/P Labs see chart Studies Pre-op Studies: EKG - SR Risk Assessment & Plan Assessment: ASA 3 Plan: GA with LMA Status Change Before Surgery: No Pre-Antibiotics Drug: Ancef 1gr. Given Within 1 Hr of Incision: Yes Time Given: 08:11 Morteza Gaitan MD Jun 18, 2020 07:47
[2020-06-18] MEDS ORDERED: LR 1000ml 1,000 ML IVLG SCH (08:00)
[2020-06-18] MEDS ORDERED: Hydromorphone 0.5mg/0.5ml inj IVP PRN (08:00)
[2020-06-18] MEDS ORDERED: DiphenhydrAMINE 50mg/ml Inj IVP PRN (08:00)
--- NOTE | 2020-06-18 08:36 | General Progress Note ---
Progress Note Progress Note revision right stump ampuattion Enrique Feldman MD Jun 18, 2020 08:36
--- NOTE | 2020-06-18 08:36 | Pre-Procedure Note/Attestation ---
Pre-Procedure Note/Attestation Complete Prior to Procedure Planned Procedure: right Procedure Narrative: revision stump amputation Indications for Procedure Pre-Operative Diagnosis: right stump pain Attestation I attest that I discussed the nature of the procedure; its benefits; risks and complications; and alternatives (and the risks and benefits of such alternatives), prior to the procedure, with the patient (or the patient's legal sales donor recruitment representative). I attest that, if there was a reasonable possibility of needing a blood transfusion, the patient (or the patient's legal sales donor recruitment representative) was given the [facility] standardized written summary, pursuant to the Nghia Dominga Blood Safety Act ([place] Health and Safety Code # 1645, as amended). I attest that I re-evaluated the patient just prior to the surgery and that there has been no change in the patient's H&P, except as documented below: Enrique Feldman MD Jun 18, 2020 08:36
--- NOTE | 2020-06-18 09:39 | Immediate Post-Op Evaluation ---
Immediate Post-Op Evalulation Immediate Post-Op Evalulation Procedure: Revision of R YAWA stamp Date of Evaluation: Jun 18, 2020 Time of Evaluation: 09:38 IV Fluids: 600 Blood Products: none Estimated Blood Loss: min Urinary Output: none Blood Pressure Systolic: 138 Blood Pressure Diastolic: 82 Pulse Rate: 102 Respiratory Rate: 20 O2 Sat by Pulse Oximetry: 99 Temperature (Fahrenheit): 97.6 Pain Score (1-10): 1 Nausea: No Vomiting: No Complications none Patient Status: reacts, patent, none Hydration Status: adequate Morteza Gaitan MD Jun 18, 2020 09:39
--- NOTE | 2020-06-18 19:32 | NUR ---
MEDS REVIEWED WITH PRIMARY MD, CALL PLACED TO PAIN MANAGEMENT MD PER REQUEST OF PRIMARY REGARDING SLEEPING PILLS, OKAT TO CONTINUE RESTORIL PER TARRINI - PER PATIENT HE TAKES 30MG Q HS
--- NOTE | 2020-06-18 19:45 | NUR ---
NURSE NOTES: Patient is awake, alert and oriented x4. On room air, breathing is even and unlabored. No complains of pain or distress noted. Dressings clean and intact with no drainage noted. IV PICC right intact and patent with no bleeding noted. Bed low and locked. Call light within reach.
--- NOTE | 2020-06-18 20:30 | Cardiology Progress Note ---
Assessment/Plan Assessment/Plan [id number] Objective Last 24 Hour Vital Signs Date Time Temp Pulse Resp B/P (MAP) Pulse Ox O2 Delivery O2 Flow Rate FiO2 06/18/20 16:00 98.8 108 18 125/65 (85) 96 06/18/20 12:00 97.4 97 18 110/58 (75) 95 06/18/20 10:40 97.9 101 16 125/68 99 Nasal Cannula 3 06/18/20 10:25 100 16 117/70 99 Nasal Cannula 3 06/18/20 10:22 97.9 06/18/20 10:12 102 15 120/74 100 Nasal Cannula 3 06/18/20 10:02 101 16 128/77 100 Nasal Cannula 3 06/18/20 09:52 102 16 116/70 100 Simple Mask 6 06/18/20 09:45 102 22 128/77 99 Simple Mask 6 06/18/20 09:40 102 18 134/82 99 Simple Mask 6 06/18/20 09:39 102 20 99 06/18/20 09:35 99.0 104 14 135/63 99 Simple Mask 6 06/18/20 06:39 Room Air 06/18/20 06:20 97.8 111 18 142/74 (96) 98 Intake and Output 06/17/20 06/18/20 19:00 07:00 # Voids 1 Microbiology Date/Time Source Procedure Growth Status 06/16/20 08:30 Nasopharynx Coronavirus COVID-19 PCR (PRAVEEN) - Final Complete Elfego Preciado MD Jun 18, 2020 20:30
--- NOTE | 2020-06-18 21:59 | Consultation ---
DATE OF CONSULTATION: 06/18/2020 CARDIOLOGY CONSULTATION CONSULTING PHYSICIAN: Elfego Preciado MD REFERRING PHYSICIAN: Enrique Feldman MD REASON FOR REFERRAL: Postoperative medical and cardiac care. HISTORY OF PRESENT ILLNESS: This is an elderly gentleman who had been admitted to the hospital postop revision right knee stump amputation and Dr. Sweet asked me to provide medical care on patient. On my arrival, the patient just vomited and eaten some soup earlier. He says and he was feeling indigestion and he vomited. He feels fine. He does not have any abdominal pain. He has not had a bowel movement today. No prior GI issues according to himself and no diarrhea. No bloody or black stool. No bloody vomiting. He does not have any chest pain at the present time. No shortness of breath. PAST MEDICAL HISTORY: Positive for history of melanoma, in remission, history of bilateral below-knee amputation, history of wound dehiscence, history of debridement of the right knee amputation and biopsy, history of severe anemia iron deficiency, urinary tract infection, hypothyroidism, sacral decubitus ulcers, electrolyte imbalance, thrombocytopenia, benign prostatic hypertrophy. ALLERGIES: No allergies. SOCIAL HISTORY: Does not smoke or drink alcoholic beverages. FAMILY HISTORY: Does not have any family. REVIEW OF SYSTEMS: GASTROINTESTINAL: Positive for nausea and vomiting just now. No bloody or black stools. GENITOURINARY: He denies. PULMONARY: He denies. CONSTITUTIONAL: He denies. CARDIAC: No PND. No orthopnea. No palpitation. No dizziness or lightheadedness. PHYSICAL EXAMINATION: GENERAL: Shows an elderly gentleman, in no respiratory distress. NECK: Supple. SKIN: Multiple skin lesions throughout his body. Scars also noted. LUNGS: Clear to auscultation and percussion. CARDIAC: Showed regular rate and rhythm. No heaves, thrills, or gallops noted. ABDOMEN: Soft, nontender. No hepatosplenomegaly. EXTREMITIES: He has below-knee amputations. LABORATORY AND DIAGNOSTIC DATA: Most recently, white count of 8.5, hemoglobin of 11.4, and platelet count 215. His sodium was 142, potassium 3.7, chloride 107, bicarb 26, BUN 23, creatinine 1.3, and a glucose of 110. Liver function tests at that time were okay. His coags INR 1, PTT of 28. His urinalysis shows 20 to 30 wbc's. His coronavirus screening was not detected recently. ASSESSMENT AND PLAN: 1. Right knee lateral bone stump pain, now status post revision. 2. Nausea and vomiting postop, question related to sedation. 3. History of benign prostatic hypertrophy. 4. History of bilateral below-knee amputation. 5. History of thrombocytopenia. 6. History of sinus tachycardia. 7. History of hypothyroidism. This patient was seen in cardiac consultation. Patient does not have any chest pain. He did have a bout of vomiting possibly related to the sedative effect and pain medication. The patient is on high dose of benzos for sleep. Requested Dr. Emeka Lan to address whether the patient is safe in conjunction with pain medications to take his benzos tonight. Dr. Lan has been consulted to see the patient by Dr. Sweet. The patient otherwise will continue on his usual medications and a set of laboratories will be ordered for tomorrow morning. If he has recurrent nausea and vomiting, GI will see as well. Elfego Preciado M.D. DR: FERNANDEZ JOB#: [id number] CC:
--- NOTE | 2020-06-18 23:45 | NUR ---
NURSE NOTES: Urine sent down to lab.
[2020-06-19 04:00] VITALS: BP 108/68
[2020-06-19 05:49] LABS: BASOPHILS % (AUTO) 0.9 % (0.0-2.0); EOSINOPHILS % (AUTO) 1.3 % (0.0-3.0); HEMATOCRIT 32.8 % (42.0-52.0); HEMOGLOBIN 10.7 G/DL (14.2-18.0); LYMPHOCYTES % (AUTO) 14.7 % (20.0-45.0); MEAN CORPUSCULAR VOLUME 93 FL (80-99); MONOCYTES % (AUTO) 6.9 % (1.0-10.0); NEUTROPHILS % (AUTO) 76.2 % (45.0-75.0); PLATELET COUNT 166 K/UL (150-450); RED BLOOD COUNT 3.53 M/UL (4.70-6.10); WHITE BLOOD COUNT 9.8 K/UL (4.8-10.8)
[2020-06-19 06:13] LABS: ALANINE AMINOTRANSFERASE 20 U/L (12-78); ALBUMIN 2.9 G/DL (3.4-5.0); ALBUMIN/GLOBULIN RATIO 0.7 (1.0-2.7); ALKALINE PHOSPHATASE 105 U/L (46-116); ANION GAP 8 mmol/L (5-15); ASPARTATE AMINO TRANSFERASE 28 U/L (15-37); BILIRUBIN,TOTAL 0.7 MG/DL (0.2-1.0); BLOOD UREA NITROGEN 27 mg/dL (7-18); CALCIUM 9.4 MG/DL (8.5-10.1); CARBON DIOXIDE 27 MMOL/L (21-32); CHLORIDE 106 MMOL/L (98-107); CREATININE 1.1 MG/DL (0.55-1.30); SODIUM 141 MMOL/L (136-145)
[2020-06-19 06:27] LABS: AMYLASE 47 U/L (25-115)
--- NOTE | 2020-06-19 07:53 | NUR ---
NURSE HAND-OFF: Important Events on Shift: Pain management Patient Status: Stable Diet: Clear liquid Pending Orders: [] Pending Results/Labs:[] Pending MD notification:[] Latest Vital Signs: Temperature 98.9 , Pulse 103 , B/P 108 /68 , Respiratory Rate 18 , O2 SAT 97 , Nasal Cannula, O2 Flow Rate 3 . Vital Sign Comment: VS stable Latest Carter Fall Score: 95 Fall Risk: High Risk Safety Measures: Call light Within Reach, Bed Alarm , Side Rails Side Rails x2, Bed position Low and Locked. Fall Precautions: Patient Fall Education Report given to Mary BOYCE.
[2020-06-19 08:00] VITALS: BP 104/57
--- NOTE | 2020-06-19 08:10 | NUR ---
NURSE NOTES: Patient awake, alert x4; on room air; PICC on Right Chest Sub-Dinh flushes well; Right-Knee dressing dry and intact; Urinal within reach; side rails up x2, breaks engaged, bed at lowest position; call light within reach; will keep monitoring.
--- NOTE | 2020-06-19 08:19 | 48 Hour Post Anesthesia Eval ---
Post Anesthesia Evaluation Procedure: Revision of R BKA stamp Date of Evaluation: Jun 19, 2020 Time of Evaluation: 08:18 Blood Pressure Systolic: 108 0: 72 Pulse Rate: 102 Respiratory Rate: 20 Temperature (Fahrenheit): 97.6 O2 Sat by Pulse Oximetry: 98 Airway: patent Nausea: No Vomiting: No Hydration Status: adequate Cardiopulmonary Status: stable Mental Status/LOC: patient returned to baseline Follow-up Care/Observations: n/a Post-Anesthesia Complications: none Follow-up care needed: N/A Morteza Gaitan MD Jun 19, 2020 08:19
--- NOTE | 2020-06-19 08:41 | Consultation ---
History of Present Illness General Date patient seen: Jun 19, 2020 Time patient seen: 08:00 - am Chief Complaint: B/L LE pain Referring physician: Gaston Reason for Consultation: Pain Management Present Illness HPI HPI: This is a 84 y/o male who is being seen on the Med/surg floor of [facility] for comprehensive pain management consultation. Patient is a known patient from previous hospital admissions, now admitted under the care of Dr. Feldman s/p right stump revision. Was started on Dilaudid 2mg subQ Q2H as needed and Restoril 30mg at night for insomnia. At this time patient is in bed an denies pain. Having received 6 doses of Dilaudid in the last 24hrs. Having no new complaints at this time. REVIEW OF SYSTEMS: Denies rash, fever, chills, sweating, dizziness, drowsiness, or change in weight. No shortness of breath or chest pain. No nausea, vomiting, or blood in the stool or urine. He is complaining of bilateral lower extremity. Physical Exam: GENERAL: Alert, awake, and oriented x3. LUNGS: Decreased BS B/L. HEART: S1 S2 Regular. ABDOMEN: Benign. EXTREMITIES: Bilateral [id number] amputation noted. NEURO: No Focal defect. Allergies: Coded Allergies: No Known Allergies (Unverified , 01/04/17) Medication History Scheduled Levothyroxine Sodium* (Synthroid*), 200 MCG ORAL DAILY, (Reported) Mirtazapine* (Remeron*), 15 MG ORAL BEDTIME, (Reported) Omeprazole (Omeprazole), 40 MG ORAL DAILY, (Reported) Temazepam (Restoril*), 45 MG ORAL BEDTIME, (Reported) Scheduled PRN Acetaminophen* (Acetaminophen 325MG Tablet*), 650 MG ORAL Q4H PRN for Mild Pain/Temp > 100.5, (Reported) Acetaminophen* (Acetaminophen Extra Strength*), 500 MG ORAL Q8HR PRN for For Pain, (Reported) Bisacodyl (Bisacodyl), 10 MG RC DAILY PRN for Constipation, (Reported) Discontinued Medications Hydromorphone HCl/Pf (Dilaudid 2 mg/ml Syringe), 2 MG IJ EVERY 3 HOURS PRN for Severe Pain (Pain Scale 7-10), (Reported) Discontinued Reason: Pt stopped taking med Levofloxacin* (Levaquin*), 250 MG ORAL DAILY, (Reported) Discontinued Reason: Therapy completed Magnesium Hydroxide* (Milk Of Magnesia*), 30 ML ORAL DAILY PRN for Constipation, (Reported) Discontinued Reason: Pt stopped taking med Sennosides (Senna Laxative), 17.2 MG PO BEDTIME, (Reported) Discontinued Reason: Pt stopped taking med Trimethoprim/Sulfamethoxazole 160/800* (Bactrim Ds Tablet*), 1 TAB ORAL TWICE A DAY, (Reported) Discontinued Reason: Therapy completed Vancomycin/Water For Inj (Vancomycin 1.5 Gram/300 ml Bag), 1.5 GM IV DAILY, (Reported) Discontinued Reason: Therapy completed [Mylanta Ds Liq], 10 ML PO Q4HR PRN for INDIGESTION, (Reported) Discontinued Reason: Pt stopped taking med Patient History Healthcare decision maker N Resuscitation status Advanced Directive on File Physical Exam Last 24 Hour Vital Signs Date Time Temp Pulse Resp B/P (MAP) Pulse Ox O2 Delivery O2 Flow Rate FiO2 06/19/20 08:19 102 20 98 06/19/20 08:00 99.2 106 19 104/57 (73) 94 06/19/20 04:00 98.9 103 18 108/68 (81) 97 06/18/20 23:49 98.0 110 18 108/69 (82) 97 06/18/20 21:00 Room Air 06/18/20 20:00 98.4 110 18 124/84 (97) 95 06/18/20 16:00 98.8 108 18 125/65 (85) 96 06/18/20 12:00 97.4 97 18 110/58 (75) 95 06/18/20 10:40 97.9 101 16 125/68 99 Nasal Cannula 3 06/18/20 10:25 100 16 117/70 99 Nasal Cannula 3 06/18/20 10:22 97.9 06/18/20 10:12 102 15 120/74 100 Nasal Cannula 3 06/18/20 10:02 101 16 128/77 100 Nasal Cannula 3 06/18/20 09:52 102 16 116/70 100 Simple Mask 6 06/18/20 09:45 102 22 128/77 99 Simple Mask 6 06/18/20 09:40 102 18 134/82 99 Simple Mask 6 06/18/20 09:39 102 20 99 06/18/20 09:35 99.0 104 14 135/63 99 Simple Mask 6 Intake and Output 06/18/20 06/19/20 19:00 07:00 Intake Total 1720 ml 480 ml Output Total 20 ml 850 ml Balance 1700 ml -370 ml Intake Oral 720 ml 480 ml IV Total 1000 ml Output Urine Total 850 ml Estimated Blood Loss 20 ml # Voids 2 Laboratory Tests Test 06/19/20 05:00 White Blood Count 9.8 K/UL (4.8-10.8) Red Blood Count 3.53 M/UL (4.70-6.10) L Hemoglobin 10.7 G/DL (14.2-18.0) L Hematocrit 32.8 % (42.0-52.0) L Mean Corpuscular Volume 93 FL (80-99) Mean Corpuscular Hemoglobin 30.3 PG (27.0-31.0) Mean Corpuscular Hemoglobin Concent 32.6 G/DL (32.0-36.0) Red Cell Distribution Width 15.0 % (11.6-14.8) H Platelet Count 166 K/UL (150-450) Mean Platelet Volume 7.0 FL (6.5-10.1) Neutrophils (%) (Auto) 76.2 % (45.0-75.0) H Lymphocytes (%) (Auto) 14.7 % (20.0-45.0) L Monocytes (%) (Auto) 6.9 % (1.0-10.0) Eosinophils (%) (Auto) 1.3 % (0.0-3.0) Basophils (%) (Auto) 0.9 % (0.0-2.0) Sodium Level 141 MMOL/L (136-145) Potassium Level 4.0 MMOL/L (3.5-5.1) Chloride Level 106 MMOL/L (98-107) Carbon Dioxide Level 27 MMOL/L (21-32) Anion Gap 8 mmol/L (5-15) Blood Urea Nitrogen 27 mg/dL (7-18) H Creatinine 1.1 MG/DL (0.55-1.30) Estimat Glomerular Filtration Rate > 60 mL/min (>60) Glucose Level 91 MG/DL (74-106) Calcium Level 9.4 MG/DL (8.5-10.1) Total Bilirubin 0.7 MG/DL (0.2-1.0) Aspartate Amino Transf (AST/SGOT) 28 U/L (15-37) Alanine Aminotransferase (ALT/SGPT) 20 U/L (12-78) Alkaline Phosphatase 105 U/L (46-116) Total Protein 6.9 G/DL (6.4-8.2) Albumin 2.9 G/DL (3.4-5.0) L Globulin 4.0 g/dL Albumin/Globulin Ratio 0.7 (1.0-2.7) L Amylase Level 47 U/L (25-115) Lipase 122 U/L (73-393) Thyroid Stimulating Hormone (TSH) < 0.010 uiU/mL (0.358-3.740) Height (Feet): 5 Height (Inches): 7.00 Weight (Pounds): 150 Medications Current Medications Medications (Trade) Dose Ordered Sig/Trever Route PRN Reason Start Time Stop Time Status Last Admin Dose Admin Hydromorphone HCl (Dilaudid) 2 mg Q2H PRN SUBQ Severe Pain (Pain Scale 7-10) 06/18/20 08:45 06/25/20 08:44 06/19/20 08:31 Levothyroxine Sodium (Synthroid) 200 mcg BEFORE BREAKFAST ORAL 06/19/20 06:30 07/19/20 06:29 06/19/20 05:38 Mirtazapine (Remeron) 15 mg BEDTIME ORAL 06/18/20 21:00 09/16/20 20:59 06/18/20 21:11 Temazepam (Restoril) 30 mg BEDTIME ORAL 06/18/20 21:00 06/25/20 20:59 06/18/20 21:11 Assessment/Plan Assessment/Plan: (1) B/L BKA (2) B/L stump pain (3) s/p stump revision (4) Phantom limb pain The patient will be continued on Dilaudid. The patient was discussed with Dr. Velasquez and Dr. Velasquez concurred. Hiram Griffin Jun 19, 2020 08:40
--- NOTE | 2020-06-19 11:00 | NUR ---
NURSE NOTES: EKG done;
[2020-06-19 12:00] VITALS: BP 110/63
--- NOTE | 2020-06-19 15:26 | General Progress Note ---
Subjective ROS Limited/Unobtainable: Yes Allergies: Coded Allergies: No Known Allergies (Unverified , 01/04/17) Objective Last 24 Hour Vital Signs Date Time Temp Pulse Resp B/P (MAP) Pulse Ox O2 Delivery O2 Flow Rate FiO2 06/19/20 13:35 98.6 06/19/20 12:00 98.6 99 18 110/63 (79) 95 06/19/20 09:01 97.6 06/19/20 09:00 Room Air 06/19/20 08:19 102 20 98 06/19/20 08:00 99.2 106 19 104/57 (73) 94 06/19/20 04:00 98.9 103 18 108/68 (81) 97 06/18/20 23:49 98.0 110 18 108/69 (82) 97 06/18/20 21:00 Room Air 06/18/20 20:00 98.4 110 18 124/84 (97) 95 06/18/20 16:00 98.8 108 18 125/65 (85) 96 Intake and Output 06/18/20 06/19/20 19:00 07:00 Intake Total 1720 ml 480 ml Output Total 20 ml 850 ml Balance 1700 ml -370 ml Intake Oral 720 ml 480 ml IV Total 1000 ml Output Urine Total 850 ml Estimated Blood Loss 20 ml # Voids 2 Laboratory Tests 06/19/20 05:00: White Blood Count 9.8, Red Blood Count 3.53L, Hemoglobin 10.7L, Hematocrit 32.8L , Mean Corpuscular Volume 93, Mean Corpuscular Hemoglobin 30.3, Mean Corpuscular Hemoglobin Concent 32.6, Red Cell Distribution Width 15.0H, Platelet Count 166, Mean Platelet Volume 7.0, Neutrophils (%) (Auto) 76.2H, Lymphocytes (%) (Auto) 14.7L, Monocytes (%) (Auto) 6.9, Eosinophils (%) (Auto) 1.3, Basophils (%) (Auto) 0.9, Sodium Level 141, Potassium Level 4.0, Chloride Level 106, Carbon Dioxide Level 27, Anion Gap 8, Blood Urea Nitrogen 27H, Creatinine 1.1, Estimat Glomerular Filtration Rate > 60, Glucose Level 91, Calcium Level 9.4, Total Bilirubin 0.7, Aspartate Amino Transf (AST/SGOT) 28, Alanine Aminotransferase (ALT/SGPT) 20, Alkaline Phosphatase 105, Total Protein 6.9, Albumin 2.9L, Globulin 4.0, Albumin/Globulin Ratio 0.7L, Amylase Level 47, Lipase 122, Thyroid Stimulating Hormone (TSH) < 0.010L Height (Feet): 5 Height (Inches): 7.00 Weight (Pounds): 150 General Appearance: no apparent distress EENT: normal ENT inspection Neck: supple Cardiovascular: normal rate Respiratory/Chest: lungs clear Abdomen: hypoactive bowel sounds Extremities: other - post surgical Assessment/Plan Problem List: (1) S/P BKA (below knee amputation) ICD Codes: Z89.519 - Status post below knee amputation SNOMED: 221351998 (2) Anemia ICD Codes: D64.9 - Anemia, unspecified SNOMED: 640692959 (3) Hypothyroid ICD Codes: E03.9 - Hypothyroid SNOMED: 97630941 (4) Hypokalemia ICD Codes: E87.6 - Hypokalemia SNOMED: 60412632 (5) Stump injury ICD Codes: T14.8 - Other injury of unspecified body region SNOMED: 359582744 Assessment/Plan: no N/V no abd pain no BM since 06/16 c/o leg pain anemia work up add colace and miralax advance diet to full liquid post op care will Akira Martinez MD Jun 19, 2020 15:26
[2020-06-19 16:00] VITALS: BP 112/73
--- NOTE | 2020-06-19 16:21 | NUR ---
NURSE NOTES: Right knee dressing changed; patient tolerated well;
[2020-06-19] MEDS: Docusate 100mg cap ORAL SCH (17:11)
--- NOTE | 2020-06-19 19:23 | NUR ---
NURSE NOTES: Received report from Mary BOYCE. Patient is awake, alert and oriented x4. On room air, breathing is even and unlabored. Complains of knee pain. Will administer pain meds. Dressing clean and intact with no drainage noted. IV right subclavian PICC intact and patent with no bleeding noted. Bed low and locked. Call light within reach.
--- NOTE | 2020-06-19 19:24 | NUR ---
NURSE HAND-OFF: Important Events on Shift:Pain management; surgical wound changed; monitoring heart rate; Patient Status: Diet: Pending Orders: Pending Results/Labs: Pending MD notification: Latest Vital Signs: Temperature 98.6 , Pulse 98 , B/P 112 /73 , Respiratory Rate 18 , O2 SAT 96 , Nasal Cannula, O2 Flow Rate 3 . Vital Sign Comment: Latest Carter Fall Score: 95 Fall Risk: High Risk Safety Measures: Call light Within Reach, Bed Alarm , Side Rails Side Rails x2, Bed position Low and Locked. Fall Precautions: Patient Fall Education Report given to .
--- NOTE | 2020-06-19 19:30 | Cardiology Progress Note ---
Assessment/Plan Assessment/Plan 1. Right knee lateral bone stump pain, now status post revision. 2. Nausea and vomiting postop, question related to sedation. 3. History of benign prostatic hypertrophy. 4. History of bilateral below-knee amputation. 5. iatrogenic hyperthyroid no futher gi sx doing well dvt ppx gin input appreciated to snf eventually when ok with dr oliveira decrease synthroid dose Subjective Cardiovascular: Denies: chest pain, lightheadedness, palpitations Respiratory: Denies: shortness of breath Gastrointestinal/Abdominal: Denies: abdominal pain, vomiting Genitourinary: Denies: burning Objective Last 24 Hour Vital Signs Date Time Temp Pulse Resp B/P (MAP) Pulse Ox O2 Delivery O2 Flow Rate FiO2 06/19/20 16:26 98.6 06/19/20 16:00 98.3 98 18 112/73 (86) 96 06/19/20 13:35 98.6 06/19/20 12:00 98.6 99 18 110/63 (79) 95 06/19/20 09:01 97.6 06/19/20 09:00 Room Air 06/19/20 08:19 102 20 98 06/19/20 08:00 99.2 106 19 104/57 (73) 94 06/19/20 04:00 98.9 103 18 108/68 (81) 97 06/18/20 23:49 98.0 110 18 108/69 (82) 97 06/18/20 21:00 Room Air 06/18/20 20:00 98.4 110 18 124/84 (97) 95 General Appearance: no apparent distress, alert Neck: supple Cardiovascular: normal rate Respiratory/Chest: lungs clear Abdomen: normal bowel sounds, non tender, soft Extremities: no swelling Intake and Output 06/18/20 06/19/20 19:00 07:00 Intake Total 1720 ml 480 ml Output Total 20 ml 850 ml Balance 1700 ml -370 ml Intake Oral 720 ml 480 ml IV Total 1000 ml Output Urine Total 850 ml Estimated Blood Loss 20 ml # Voids 2 Laboratory Tests Test 06/19/20 05:00 White Blood Count 9.8 K/UL (4.8-10.8) Red Blood Count 3.53 M/UL (4.70-6.10) L Hemoglobin 10.7 G/DL (14.2-18.0) L Hematocrit 32.8 % (42.0-52.0) L Mean Corpuscular Volume 93 FL (80-99) Mean Corpuscular Hemoglobin 30.3 PG (27.0-31.0) Mean Corpuscular Hemoglobin Concent 32.6 G/DL (32.0-36.0) Red Cell Distribution Width 15.0 % (11.6-14.8) H Platelet Count 166 K/UL (150-450) Mean Platelet Volume 7.0 FL (6.5-10.1) Neutrophils (%) (Auto) 76.2 % (45.0-75.0) H Lymphocytes (%) (Auto) 14.7 % (20.0-45.0) L Monocytes (%) (Auto) 6.9 % (1.0-10.0) Eosinophils (%) (Auto) 1.3 % (0.0-3.0) Basophils (%) (Auto) 0.9 % (0.0-2.0) Sodium Level 141 MMOL/L (136-145) Potassium Level 4.0 MMOL/L (3.5-5.1) Chloride Level 106 MMOL/L (98-107) Carbon Dioxide Level 27 MMOL/L (21-32) Anion Gap 8 mmol/L (5-15) Blood Urea Nitrogen 27 mg/dL (7-18) H Creatinine 1.1 MG/DL (0.55-1.30) Estimat Glomerular Filtration Rate > 60 mL/min (>60) Glucose Level 91 MG/DL (74-106) Calcium Level 9.4 MG/DL (8.5-10.1) Total Bilirubin 0.7 MG/DL (0.2-1.0) Aspartate Amino Transf (AST/SGOT) 28 U/L (15-37) Alanine Aminotransferase (ALT/SGPT) 20 U/L (12-78) Alkaline Phosphatase 105 U/L (46-116) Total Protein 6.9 G/DL (6.4-8.2) Albumin 2.9 G/DL (3.4-5.0) L Globulin 4.0 g/dL Albumin/Globulin Ratio 0.7 (1.0-2.7) L Amylase Level 47 U/L (25-115) Lipase 122 U/L (73-393) Thyroid Stimulating Hormone (TSH) < 0.010 uiU/mL (0.358-3.740) Elfego Preciado MD Jun 19, 2020 19:30
[2020-06-19 20:00] VITALS: BP 111/57
[2020-06-19] MEDS: Miralax 17gm pkt ORAL SCH (20:41)
[2020-06-19] MEDS: Heparin 5000 units/ml inj SUBQ SCH (20:43)
[2020-06-20] VITALS: BP 123/72
[2020-06-20 04:00] VITALS: BP 108/72
[2020-06-20 06:17] LABS: BASOPHILS % (AUTO) 1.1 % (0.0-2.0); EOSINOPHILS % (AUTO) 4.2 % (0.0-3.0); HEMATOCRIT 31.6 % (42.0-52.0); HEMOGLOBIN 10.3 G/DL (14.2-18.0); LYMPHOCYTES % (AUTO) 28.3 % (20.0-45.0); MEAN CORPUSCULAR VOLUME 93 FL (80-99); NEUTROPHILS % (AUTO) 58.4 % (45.0-75.0); PLATELET COUNT 141 K/UL (150-450); RED BLOOD COUNT 3.39 M/UL (4.70-6.10); RED CELL DISTRIBUTION WIDTH 15.3 % (11.6-14.8); WHITE BLOOD COUNT 5.3 K/UL (4.8-10.8)
[2020-06-20 06:38] LABS: ANION GAP 10 mmol/L (5-15); BLOOD UREA NITROGEN 25 mg/dL (7-18); CALCIUM 9.5 MG/DL (8.5-10.1); CARBON DIOXIDE 27 MMOL/L (21-32); CHLORIDE 105 MMOL/L (98-107); CREATININE 1.1 MG/DL (0.55-1.30); SODIUM 142 MMOL/L (136-145)
[2020-06-20 06:47] LABS: % IRON SATURATION 20 % (15-50); IRON 43 ug/dL (50-175); TOTAL IRON BINDING CAPACITY 216 ug/dL (250-450)
--- NOTE | 2020-06-20 07:28 | NUR ---
NURSE HAND-OFF: Important Events on Shift: Pain management, no BM Patient Status: Stable Diet: Full liquid Pending Orders: [] Pending Results/Labs:[] Pending MD notification:[] Latest Vital Signs: Temperature 97.9 , Pulse 88 , B/P 108 /72 , Respiratory Rate 16 , O2 SAT 97 , Nasal Cannula, O2 Flow Rate 3 . Vital Sign Comment: VS stable Latest Carter Fall Score: 95 Fall Risk: High Risk Safety Measures: Call light Within Reach, Bed Alarm , Side Rails Side Rails x2, Bed position Low and Locked. Fall Precautions: Patient Fall Education Report given to Christine BOYCE.
--- NOTE | 2020-06-20 07:53 | NUR ---
NURSE NOTES: recvd report. Patient is awake, laying in bed AOx4, pt is on room air with no sign of sob or resp distress. PICC on Right Chest Sub-Dinh flushes well. pt has Right-Knee dressing that appears c/d/i. Pt is cont and uses urinal. Pt is able to feed self. Bed in lowest locked position, call light within reach, will continue with plan of care.
[2020-06-20 08:00] VITALS: BP 105/54
[2020-06-20] MEDS: Heparin 5000 units/ml inj SUBQ SCH ×2 (08:16→20:49)
[2020-06-20] MEDS: Docusate 100mg cap ORAL SCH ×2 (08:25→16:55)
[2020-06-20] MEDS: HYDROmorphone 1mg/ml Carpuject SUBQ PRN ×3 (08:32→21:30)
--- NOTE | 2020-06-20 08:33 | General Progress Note ---
Subjective Date patient seen: Jun 20, 2020 Time patient seen: 07:30 - am Allergies: Coded Allergies: No Known Allergies (Unverified , 01/04/17) Subjective HPI: This is a 84 y/o male who is being seen on the Med/surg floor of [facility]. Patient is in bed and showing no signs of pain or distress. The pain has been tolerated on the Dilaudid 4 doses in the last 24hrs. No new complaints at this time. REVIEW OF SYSTEMS: Denies rash, fever, chills, sweating, dizziness, drowsiness, or change in weight. No shortness of breath or chest pain. No nausea, vomiting, or blood in the stool or urine. He is complaining of bilateral lower extremity. Physical Exam: GENERAL: Alert, awake, and oriented x3. LUNGS: Decreased BS B/L. HEART: S1 S2 Regular. ABDOMEN: Benign. EXTREMITIES: Bilateral [id number] amputation noted. NEURO: No changes. Objective Last 24 Hour Vital Signs Date Time Temp Pulse Resp B/P (MAP) Pulse Ox O2 Delivery O2 Flow Rate FiO2 06/20/20 08:00 97.7 94 19 105/54 (71) 95 06/20/20 04:00 97.9 88 16 108/72 (84) 97 06/20/20 00:00 97.3 99 16 123/72 (89) 94 06/19/20 21:00 Room Air 06/19/20 20:00 98.2 97 16 111/57 (75) 94 06/19/20 16:26 98.6 06/19/20 16:00 98.3 98 18 112/73 (86) 96 06/19/20 13:35 98.6 06/19/20 12:00 98.6 99 18 110/63 (79) 95 06/19/20 09:01 97.6 06/19/20 09:00 Room Air Intake and Output 06/19/20 06/20/20 19:00 07:00 Intake Total 400 ml 360 ml Output Total 650 ml Balance 400 ml -290 ml Intake Oral 360 ml Other 400 ml Output Urine Total 650 ml # Voids 2 Laboratory Tests 06/20/20 04:50: White Blood Count 5.3, Red Blood Count 3.39L, Hemoglobin 10.3L, Hematocrit 31.6L , Mean Corpuscular Volume 93, Mean Corpuscular Hemoglobin 30.5, Mean Corpuscular Hemoglobin Concent 32.7, Red Cell Distribution Width 15.3H, Platelet Count 141L, Mean Platelet Volume 7.4, Neutrophils (%) (Auto) 58.4, Lymphocytes (%) (Auto) 28.3, Monocytes (%) (Auto) 8.0, Eosinophils (%) (Auto) 4.2H, Basophils (%) (Auto) 1.1, Sodium Level 142, Potassium Level 4.0, Chloride Level 105, Carbon Dioxide Level 27, Anion Gap 10, Blood Urea Nitrogen 25H, Creatinine 1.1, Estimat Glomerular Filtration Rate > 60, Glucose Level 84, Calcium Level 9.5, Iron Level 43L, Total Iron Binding Capacity 216L, Percent Iron Saturation 20, Unsaturated Iron Binding 173 Height (Feet): 5 Height (Inches): 7.00 Weight (Pounds): 150 Assessment/Plan Assessment/Plan: (1) B/L BKA (2) B/L stump pain (3) s/p stump revision (4) Phantom limb pain The patient will be continued on Dilaudid. The patient was discussed with Dr. Velasquez and Dr. Velasquez concurred. Hiram Griffin Jun 20, 2020 08:33
--- NOTE | 2020-06-20 10:23 | NUR ---
RD ASSESSMENT & RECOMMENDATIONS SEE CARE ACTIVITY FOR COMPLETE ASSESSMENT DAILY ESTIMATED NEEDS: Needs based on Wound, bed bound 68kg 25-30 kcals/kg 5117-6949 total kcals 1.25-2 g protein/kg 85-136 g total protein 25-30 mL/kg 6251-4741 total fluid mLs NUTRITION DIAGNOSIS: Increased kcal and pro needs r/t wound healing as evidenced by s/p rt BKA stump wound revision. CURRENT DIET: CLD -> now Full liquid PO DIET RECOMMENDATIONS: Maintain Regular diet/ texture as tolerated ADDITIONAL RECOMMENDATIONS: 1) maintain calibrated bed scale wt 2) Surgical wound healing: Vit C 250mg BID + MVI x1 daily Higinio 1pkt BID 3) On Full liquid diet- add Ensure Enlive TID w/ meals on full liquid diet
--- NOTE | 2020-06-20 11:22 | General Progress Note ---
Subjective ROS Limited/Unobtainable: No Allergies: Coded Allergies: No Known Allergies (Unverified , 01/04/17) Objective Last 24 Hour Vital Signs Date Time Temp Pulse Resp B/P (MAP) Pulse Ox O2 Delivery O2 Flow Rate FiO2 06/20/20 09:02 97.7 06/20/20 09:00 Room Air 06/20/20 08:00 97.7 94 19 105/54 (71) 95 06/20/20 04:00 97.9 88 16 108/72 (84) 97 06/20/20 00:00 97.3 99 16 123/72 (89) 94 06/19/20 21:00 Room Air 06/19/20 20:00 98.2 97 16 111/57 (75) 94 06/19/20 16:26 98.6 06/19/20 16:00 98.3 98 18 112/73 (86) 96 06/19/20 13:35 98.6 06/19/20 12:00 98.6 99 18 110/63 (79) 95 Intake and Output 06/19/20 06/20/20 19:00 07:00 Intake Total 400 ml 360 ml Output Total 650 ml Balance 400 ml -290 ml Intake Oral 360 ml Other 400 ml Output Urine Total 650 ml # Voids 2 Laboratory Tests 06/20/20 04:50: White Blood Count 5.3, Red Blood Count 3.39L, Hemoglobin 10.3L, Hematocrit 31.6L , Mean Corpuscular Volume 93, Mean Corpuscular Hemoglobin 30.5, Mean Corpuscular Hemoglobin Concent 32.7, Red Cell Distribution Width 15.3H, Platelet Count 141L, Mean Platelet Volume 7.4, Neutrophils (%) (Auto) 58.4, Lymphocytes (%) (Auto) 28.3, Monocytes (%) (Auto) 8.0, Eosinophils (%) (Auto) 4.2H, Basophils (%) (Auto) 1.1, Sodium Level 142, Potassium Level 4.0, Chloride Level 105, Carbon Dioxide Level 27, Anion Gap 10, Blood Urea Nitrogen 25H, Creatinine 1.1, Estimat Glomerular Filtration Rate > 60, Glucose Level 84, Calcium Level 9.5, Iron Level 43L, Total Iron Binding Capacity 216L, Percent Iron Saturation 20, Unsaturated Iron Binding 173 Height (Feet): 5 Height (Inches): 7.00 Weight (Pounds): 150 General Appearance: no apparent distress EENT: normal ENT inspection Neck: supple Cardiovascular: normal rate Respiratory/Chest: decreased breath sounds Abdomen: normal bowel sounds, non tender, soft Extremities: non-tender Assessment/Plan Problem List: (1) S/P BKA (below knee amputation) ICD Codes: Z89.519 - Status post below knee amputation SNOMED: 217131082 (2) Anemia ICD Codes: D64.9 - Anemia, unspecified SNOMED: 800598118 (3) Hypothyroid ICD Codes: E03.9 - Hypothyroid SNOMED: 20668973 (4) Hypokalemia ICD Codes: E87.6 - Hypokalemia SNOMED: 36939518 (5) Stump injury ICD Codes: T14.8 - Other injury of unspecified body region SNOMED: 015830053 Assessment/Plan: no N/V no abd pain no BM since 06/16 c/o leg pain anemia work up reviewed add linzess colace and miralax advance diet post op care will Akira Martinez MD Jun 20, 2020 11:22
[2020-06-20 12:00] VITALS: BP 110/63
--- NOTE | 2020-06-20 13:46 | NUR ---
*-*DISCHARGE PLANNING*-* PATIENT HAS BEEN REFERRED TO: [facility] P: [phone] S/W YESIYNA, CANNOT ACCOMMODATE PATIENT, PATIENT HAS AN OUTSTANDING BALANCE WITH INSURANCE.
[2020-06-20 16:00] VITALS: BP 108/59
--- NOTE | 2020-06-20 18:45 | Cardiology Progress Note ---
Assessment/Plan Assessment/Plan 1. Right knee lateral bone stump pain, now status post revision. 2. Nausea and vomiting postop, question related to sedation. 3. History of benign prostatic hypertrophy. 4. History of bilateral below-knee amputation. 5. iatrogenic hyperthyroid no futher gi sx doing well dvt ppx sq heparin gi appreciated to snf eventually when ok with dr oliveira on lower synthroid dose Subjective Cardiovascular: Denies: chest pain, lightheadedness, palpitations Respiratory: Denies: shortness of breath, SOB with excertion Gastrointestinal/Abdominal: Reports: constipated; Denies: abdominal pain, nausea, vomiting Genitourinary: Denies: burning Objective Last 24 Hour Vital Signs Date Time Temp Pulse Resp B/P (MAP) Pulse Ox O2 Delivery O2 Flow Rate FiO2 06/20/20 16:00 98.4 90 17 108/59 (75) 95 06/20/20 13:46 98.1 06/20/20 12:00 98.1 89 19 110/63 (79) 96 06/20/20 09:02 97.7 06/20/20 09:00 Room Air 06/20/20 08:00 97.7 94 19 105/54 (71) 95 06/20/20 04:00 97.9 88 16 108/72 (84) 97 06/20/20 00:00 97.3 99 16 123/72 (89) 94 06/19/20 21:00 Room Air 06/19/20 20:00 98.2 97 16 111/57 (75) 94 General Appearance: no apparent distress, alert Neck: supple Cardiovascular: normal rate Respiratory/Chest: lungs clear Abdomen: normal bowel sounds, non tender, soft Extremities: no swelling Intake and Output 06/19/20 06/20/20 19:00 07:00 Intake Total 400 ml 360 ml Output Total 650 ml Balance 400 ml -290 ml Intake Oral 360 ml Other 400 ml Output Urine Total 650 ml # Voids 2 Laboratory Tests Test 06/20/20 04:50 White Blood Count 5.3 K/UL (4.8-10.8) Red Blood Count 3.39 M/UL (4.70-6.10) L Hemoglobin 10.3 G/DL (14.2-18.0) L Hematocrit 31.6 % (42.0-52.0) L Mean Corpuscular Volume 93 FL (80-99) Mean Corpuscular Hemoglobin 30.5 PG (27.0-31.0) Mean Corpuscular Hemoglobin Concent 32.7 G/DL (32.0-36.0) Red Cell Distribution Width 15.3 % (11.6-14.8) H Platelet Count 141 K/UL (150-450) L Mean Platelet Volume 7.4 FL (6.5-10.1) Neutrophils (%) (Auto) 58.4 % (45.0-75.0) Lymphocytes (%) (Auto) 28.3 % (20.0-45.0) Monocytes (%) (Auto) 8.0 % (1.0-10.0) Eosinophils (%) (Auto) 4.2 % (0.0-3.0) H Basophils (%) (Auto) 1.1 % (0.0-2.0) Sodium Level 142 MMOL/L (136-145) Potassium Level 4.0 MMOL/L (3.5-5.1) Chloride Level 105 MMOL/L (98-107) Carbon Dioxide Level 27 MMOL/L (21-32) Anion Gap 10 mmol/L (5-15) Blood Urea Nitrogen 25 mg/dL (7-18) H Creatinine 1.1 MG/DL (0.55-1.30) Estimat Glomerular Filtration Rate > 60 mL/min (>60) Glucose Level 84 MG/DL (74-106) Calcium Level 9.5 MG/DL (8.5-10.1) Iron Level 43 ug/dL (50-175) L Total Iron Binding Capacity 216 ug/dL (250-450) L Percent Iron Saturation 20 % (15-50) Unsaturated Iron Binding 173 ug/dL (112-346) Microbiology Date/Time Source Procedure Growth Status 06/18/20 23:30 Urine,Clean Catch Urine Culture - Preliminary Gram Negative Reinaldo Resulted 06/18/20 06:15 Nasal Nares MRSA Culture - Final Staphylococcus Aureus - Mrsa Complete Elfego Preciado MD Jun 20, 2020 18:45
--- NOTE | 2020-06-20 19:30 | NUR ---
NURSE NOTES: Patient awake in bed, alert and oriented mostly x4 with episodes of forgetfulness. No complaints at this time. Bed in lowest, locked and alarm on. Call light and needs in reach. Will continue plan of care.
[2020-06-20 20:00] VITALS: BP 113/54
[2020-06-20] MEDS: Miralax 17gm pkt ORAL SCH (20:53)
[2020-06-21] VITALS: BP 102/60
--- NOTE | 2020-06-21 01:28 | NUR ---
NURSE NOTES: Assisted with hygiene. Dressing on the right stump changed.
[2020-06-21 04:00] VITALS: BP 118/59
[2020-06-21] MEDS: HYDROmorphone 1mg/ml Carpuject SUBQ PRN ×3 (05:32→20:36)
[2020-06-21 05:59] LABS: EOSINOPHILS % (AUTO) 5.3 % (0.0-3.0); HEMATOCRIT 28.8 % (42.0-52.0); HEMOGLOBIN 9.6 G/DL (14.2-18.0); LYMPHOCYTES % (AUTO) 28.6 % (20.0-45.0); MEAN CORPUSCULAR VOLUME 91 FL (80-99); MONOCYTES % (AUTO) 8.8 % (1.0-10.0); NEUTROPHILS % (AUTO) 56.2 % (45.0-75.0); PLATELET COUNT 131 K/UL (150-450); RED BLOOD COUNT 3.17 M/UL (4.70-6.10); RED CELL DISTRIBUTION WIDTH 14.4 % (11.6-14.8); WHITE BLOOD COUNT 4.8 K/UL (4.8-10.8)
[2020-06-21 06:16] LABS: ANION GAP 6 mmol/L (5-15); BLOOD UREA NITROGEN 30 mg/dL (7-18); CARBON DIOXIDE 28 MMOL/L (21-32); CHLORIDE 107 MMOL/L (98-107); CREATININE 1.1 MG/DL (0.55-1.30); SODIUM 141 MMOL/L (136-145)
--- NOTE | 2020-06-21 07:36 | General Progress Note ---
Subjective ROS Limited/Unobtainable: Yes Allergies: Coded Allergies: No Known Allergies (Unverified , 01/04/17) Objective Last 24 Hour Vital Signs Date Time Temp Pulse Resp B/P (MAP) Pulse Ox O2 Delivery O2 Flow Rate FiO2 06/21/20 04:00 97.4 86 19 118/59 (78) 96 06/21/20 00:00 97.1 99 20 102/60 (74) 94 06/20/20 21:00 Room Air 06/20/20 20:00 98.8 18 113/54 (73) 94 06/20/20 16:00 98.4 90 17 108/59 (75) 95 06/20/20 13:46 98.1 06/20/20 12:00 98.1 89 19 110/63 (79) 96 06/20/20 09:02 97.7 06/20/20 09:00 Room Air 06/20/20 08:00 97.7 94 19 105/54 (71) 95 Intake and Output 06/20/20 06/21/20 19:00 07:00 Intake Total 700 ml 300 ml Output Total 800 ml 450 ml Balance -100 ml -150 ml Intake Oral 300 ml Other 700 ml Output Urine Total 800 ml 450 ml # Voids 3 Laboratory Tests 06/21/20 04:45: White Blood Count 4.8, Red Blood Count 3.17L, Hemoglobin 9.6L, Hematocrit 28.8L, Mean Corpuscular Volume 91, Mean Corpuscular Hemoglobin 30.4, Mean Corpuscular Hemoglobin Concent 33.4, Red Cell Distribution Width 14.4, Platelet Count 131L, Mean Platelet Volume 7.6, Neutrophils (%) (Auto) 56.2, Lymphocytes (%) (Auto) 28.6, Monocytes (%) (Auto) 8.8, Eosinophils (%) (Auto) 5.3H, Basophils (%) (Auto) 1.0, Sodium Level 141, Potassium Level 4.0, Chloride Level 107, Carbon Dioxide Level 28, Anion Gap 6, Blood Urea Nitrogen 30H, Creatinine 1.1, Estimat Glomerular Filtration Rate > 60, Glucose Level 104, Calcium Level 9.0 Height (Feet): 5 Height (Inches): 7.00 Weight (Pounds): 150 General Appearance: no apparent distress EENT: normal ENT inspection Neck: supple Cardiovascular: normal rate Respiratory/Chest: decreased breath sounds Abdomen: normal bowel sounds, non tender, soft Extremities: non-tender Assessment/Plan Problem List: (1) S/P BKA (below knee amputation) ICD Codes: Z89.519 - Status post below knee amputation SNOMED: 058217960 (2) Anemia ICD Codes: D64.9 - Anemia, unspecified SNOMED: 473276060 (3) Hypothyroid ICD Codes: E03.9 - Hypothyroid SNOMED: 27753199 (4) Hypokalemia ICD Codes: E87.6 - Hypokalemia SNOMED: 55000880 (5) Stump injury ICD Codes: T14.8 - Other injury of unspecified body region SNOMED: 698490531 Assessment/Plan: no N/V no abd pain c/o leg pain anemia work up reviewed linzess colace and miralax post op care will fu Akira Mullins MD Jun 21, 2020 07:36
--- NOTE | 2020-06-21 07:47 | NUR ---
NURSE NOTES: Received pt from AUSTEN Dudley. pt was sleeping, no acute distress, call light w/in reach.
--- NOTE | 2020-06-21 07:52 | NUR ---
NURSE HAND-OFF: Important Events on Shift: pain mgt, dressing changed, line draw Patient Status: Diet: Pending Orders: Pending Results/Labs: Pending MD notification: Latest Vital Signs: Temperature 97.4 , Pulse 86 , B/P 118 /59 , Respiratory Rate 19 , O2 SAT 96 , Nasal Cannula, O2 Flow Rate 3 . Vital Sign Comment: Latest Carter Fall Score: 95 Fall Risk: High Risk Safety Measures: Call light Within Reach, Bed Alarm , Side Rails Side Rails x2, Bed position Low and Locked. Fall Precautions: Patient Fall Education Report given to AUSTEN Etienne.
[2020-06-21 08:00] VITALS: BP 104/54
[2020-06-21] MEDS: Heparin 5000 units/ml inj SUBQ SCH ×2 (08:40→20:25)
[2020-06-21] MEDS: Docusate 100mg cap ORAL SCH ×2 (08:40→17:34)
[2020-06-21 12:00] VITALS: BP 111/62
--- NOTE | 2020-06-21 15:45 | NUR ---
CASE MANAGEMENT:REVIEW 06/21/20 SI: POD #3 S/P REVISION OF RT STUMP AMPUTATION 97.2 99 19 104/54 96% ON RA H/H-9.6/28.8 PLT-131 BUN+30 IS: LINZESS PO QAM SYNTHROID PO QAM HEPARIN SQ Q12 REMERON PO QHS : MED/SURG STATUS DCP: SNF PLACEMENT
[2020-06-21 16:00] VITALS: BP 110/63
--- NOTE | 2020-06-21 19:15 | NUR ---
NURSE NOTES: Received report from AUSTEN Etienne. Pt is talkative in bed, call light within reach, bed locked and in lowest position. Wheelchair and 2 prosthetics at bedside due to ADWOA BKA. Pt has a right subclavian PICC in place. Pt has no needs at this time, will continue to monitor.
--- NOTE | 2020-06-21 19:30 | NUR ---
NURSE HAND-OFF: Important Events on Shift:[] Patient Status: [] Diet: [] Pending Orders: [] Pending Results/Labs:[] Pending MD notification:[] Latest Vital Signs: Temperature 97.6 , Pulse 96 , B/P 110 /63 , Respiratory Rate 19 , O2 SAT 96 , Nasal Cannula, O2 Flow Rate 3 . Vital Sign Comment: [] Latest Carter Fall Score: 35 Fall Risk: Medium Risk Safety Measures: Call light Within Reach, Bed Alarm , Side Rails Side Rails x2, Bed position Low and Locked. Fall Precautions: Patient Fall Education Report given to [AUSTEN Hendrickson]. Pt is stable condition.
[2020-06-21 20:00] VITALS: BP 119/62
[2020-06-21] MEDS: Dyna-Hex 2% Top Sol 2oz TOPIC SCH (20:27)
[2020-06-21] MEDS: Miralax 17gm pkt ORAL SCH (20:29)
[2020-06-22] VITALS: BP 114/66
[2020-06-22] MEDS: HYDROmorphone 1mg/ml Carpuject SUBQ PRN ×2 (03:03→11:48)
[2020-06-22 04:00] VITALS: BP 120/64
--- NOTE | 2020-06-22 07:05 | NUR ---
NURSE HAND-OFF: Important Events on Shift: Patient Status: calm Diet: regular Pending Orders: Pending Results/Labs: Pending MD notification: Latest Vital Signs: Temperature 98.6 , Pulse 100 , B/P 120 /64 , Respiratory Rate 17 , O2 SAT 95 , Nasal Cannula, O2 Flow Rate 3 . Vital Sign Comment: VSS Latest Carter Fall Score: 95 Fall Risk: High Risk Safety Measures: Call light Within Reach, Bed Alarm , Side Rails Side Rails x2, Bed position Low and Locked. Fall Precautions: Patient Fall Education Report given to AUSTEN Vargas.
--- NOTE | 2020-06-22 07:51 | General Progress Note ---
Subjective ROS Limited/Unobtainable: No Allergies: Coded Allergies: No Known Allergies (Unverified , 01/04/17) Objective Last 24 Hour Vital Signs Date Time Temp Pulse Resp B/P (MAP) Pulse Ox O2 Delivery O2 Flow Rate FiO2 06/22/20 04:00 98.6 100 17 120/64 (82) 95 06/22/20 00:00 98.5 105 18 114/66 (82) 95 06/21/20 21:00 Room Air 06/21/20 20:00 98.7 96 17 119/62 (81) 95 06/21/20 16:00 97.6 96 19 110/63 (79) 96 06/21/20 12:00 98.2 96 19 111/62 (78) 96 06/21/20 08:00 97.2 99 19 104/54 (71) 96 06/21/20 07:51 Room Air Intake and Output 06/21/20 06/22/20 19:00 07:00 Intake Total 800 ml 360 ml Output Total 800 ml Balance 0 ml 360 ml Intake Oral 800 ml 360 ml Output Urine Total 800 ml # Voids 4 4 # Bowel Movements 3 1 Laboratory Tests 06/21/20 13:00: Stool Occult Blood Negative Height (Feet): 5 Height (Inches): 7.00 Weight (Pounds): 150 General Appearance: no apparent distress EENT: normal ENT inspection Neck: supple Cardiovascular: normal rate Respiratory/Chest: decreased breath sounds Abdomen: normal bowel sounds, non tender, no organomegaly Extremities: non-tender Assessment/Plan Problem List: (1) S/P BKA (below knee amputation) ICD Codes: Z89.519 - Status post below knee amputation SNOMED: 126238420 (2) Anemia ICD Codes: D64.9 - Anemia, unspecified SNOMED: 236027736 (3) Hypothyroid ICD Codes: E03.9 - Hypothyroid SNOMED: 64101526 (4) Hypokalemia ICD Codes: E87.6 - Hypokalemia SNOMED: 78501490 (5) Stump injury ICD Codes: T14.8 - Other injury of unspecified body region SNOMED: 835286148 Assessment/Plan: no N/V no abd pain c/o leg pain anemia work up reviewed linzess colace and miralax post op care will fu Akira Mullins MD 21, 2021 07:51
--- NOTE | 2020-06-22 07:59 | NUR ---
NURSE NOTES: Report received from Emeka BOYCE. Patient seen on rounds, asleep but easily rousable, comfortable, nurse reports patient given PRN pain meds with relief of symptoms. Right upper chest PICC line patent and intact. Noted bilateral BKA, right stump dressing intact. No bleeding, skin intact with no signs of inflammation. Bed low and locked, siderails up x2, call light placed within reach and instructed to call nurse for assistance. Will continue to monitor.
[2020-06-22 08:00] VITALS: BP 100/54
--- NOTE | 2020-06-22 08:49 | NUR ---
NURSE NOTES: Contacted Hiram RAMIREZ re: pt's request to receive Dilaudid via IV. Says he will come to assess patient.
[2020-06-22] MEDS: Docusate 100mg cap ORAL SCH ×3 (09:00→18:00)
[2020-06-22] MEDS: Heparin 5000 units/ml inj SUBQ SCH ×2 (09:00→20:50)
--- NOTE | 2020-06-22 09:23 | NUR ---
NURSE NOTES: Patient refused AM meds, risks and benefits discussed, pt still refused.
--- NOTE | 2020-06-22 11:46 | General Progress Note ---
Subjective Date patient seen: Jun 22, 2020 Time patient seen: 10:45 - am Allergies: Coded Allergies: No Known Allergies (Unverified , 01/04/17) Subjective HPI: This is a 84 y/o male who is being seen on the Med/surg floor of [facility] [place]. Patient resting in bed showing no signs of pain or distress. Has used 3 doses of Dilaudid in the last 24hrs, hospital will be running out of the Dilaudid solution, this was d/w patient and he seems to understand to michaud to tabs. REVIEW OF SYSTEMS: Denies rash, fever, chills, sweating, dizziness, drowsiness, or change in weight. No shortness of breath or chest pain. No nausea, vomiting, or blood in the stool or urine. He is complaining of bilateral lower extremity. Physical Exam: GENERAL: Alert, awake, and oriented x3. LUNGS: Decreased BS B/L. HEART: S1 S2 Regular. ABDOMEN: Benign. EXTREMITIES: Bilateral [id number] amputation noted. NEURO: No changes. Objective Last 24 Hour Vital Signs Date Time Temp Pulse Resp B/P (MAP) Pulse Ox O2 Delivery O2 Flow Rate FiO2 06/22/20 09:00 Room Air 06/22/20 08:00 97.4 94 18 100/54 (69) 96 06/22/20 04:00 98.6 100 17 120/64 (82) 95 06/22/20 00:00 98.5 105 18 114/66 (82) 95 06/21/20 21:00 Room Air 06/21/20 20:00 98.7 96 17 119/62 (81) 95 06/21/20 16:00 97.6 96 19 110/63 (79) 96 06/21/20 12:00 98.2 96 19 111/62 (78) 96 Intake and Output 06/21/20 06/22/20 19:00 07:00 Intake Total 800 ml 360 ml Output Total 800 ml Balance 0 ml 360 ml Intake Oral 800 ml 360 ml Output Urine Total 800 ml # Voids 4 4 # Bowel Movements 3 1 Laboratory Tests 06/21/20 13:00: Stool Occult Blood Negative Height (Feet): 5 Height (Inches): 7.00 Weight (Pounds): 150 Assessment/Plan Assessment/Plan: (1) B/L BKA (2) B/L stump pain (3) s/p stump revision (4) Phantom limb pain The patient will be continued on Dilaudid. We will start Dilaudid 2mg PO 1 tab Q4H PRN severe pain. The patient was discussed with Dr. Velasquez and Dr. Velasquze concurred. Hiram Griffin Jun 22, 2020 11:46
[2020-06-22 12:00] VITALS: BP 118/68
--- NOTE | 2020-06-22 15:44 | NUR ---
NURSE NOTES: Dr. Preciado informed of (+) ESBL urine culture results. Awaiting response.
[2020-06-22 16:00] VITALS: BP 116/63
--- NOTE | 2020-06-22 19:25 | NUR ---
NURSE HAND-OFF: Important Events on Shift: ESBL urine, Dr. Preciado aware, pending DCP Patient Status: Stable Diet: Regular Pending Orders: N Pending Results/Labs: N Pending MD notification: N Latest Vital Signs: Temperature 97.2 , Pulse 91 , B/P 116 /63 , Respiratory Rate 18 , O2 SAT 95 , Nasal Cannula, O2 Flow Rate 3 . Vital Sign Comment: Latest Carter Fall Score: 95 Fall Risk: High Risk Safety Measures: Call light Within Reach, Bed Alarm , Side Rails Side Rails x2, Bed position Low and Locked. Fall Precautions: Patient Fall Education Report given to Yissel BOYCE.
[2020-06-22 20:00] VITALS: BP 119/72
[2020-06-22] MEDS: Dyna-Hex 2% Top Sol 2oz TOPIC SCH (20:47)
[2020-06-22] MEDS: Miralax 17gm pkt ORAL SCH (20:49)
[2020-06-23] VITALS: BP 148/75
[2020-06-23 04:00] VITALS: BP 124/73
[2020-06-23] MEDS: HYDROmorphone 2mg tab ORAL PRN ×3 (05:49→21:45)
--- NOTE | 2020-06-23 06:47 | NUR ---
NURSE HAND-OFF: Important Events on Shift: full bath and complete bed linen change done; had an episode of incontinent bowel; stool noted to be of moderate amount, brown in color and soft; pain managed well with ordered oral dilaudid with good results; otherwise, no significant changes noted this shift. Patient Status: stable at this time Diet: see chart Pending Orders: see chart Pending Results/Labs:see chart Pending MD notification:see chart Latest Vital Signs: Temperature 97.5 , Pulse 90 , B/P 124 /73 , Respiratory Rate 18 , O2 SAT 92 , Nasal Cannula, O2 Flow Rate 3 . Vital Sign Comment: VSS; afebrile Latest Carter Fall Score: 60 Fall Risk: High Risk Safety Measures: Call light Within Reach, Bed Alarm , Side Rails Side Rails x2, Bed position Low and Locked. Fall Precautions: Patient Fall Education Report given to [].
[2020-06-23 08:00] VITALS: BP 119/74
--- NOTE | 2020-06-23 08:06 | General Progress Note ---
Subjective ROS Limited/Unobtainable: Yes Allergies: Coded Allergies: No Known Allergies (Unverified , 01/04/17) Objective Last 24 Hour Vital Signs Date Time Temp Pulse Resp B/P (MAP) Pulse Ox O2 Delivery O2 Flow Rate FiO2 06/23/20 04:00 97.5 90 18 124/73 (90) 92 06/23/20 00:00 97.7 87 18 148/75 (99) 94 06/22/20 21:00 Room Air 06/22/20 20:00 98.2 87 17 119/72 (88) 97 06/22/20 16:00 97.2 91 18 116/63 (80) 95 06/22/20 12:18 97.0 06/22/20 12:00 97.0 92 18 118/68 (85) 99 06/22/20 09:00 Room Air Intake and Output 06/22/20 06/23/20 19:00 07:00 Intake Total 680 ml 240 ml Balance 680 ml 240 ml Intake Oral 680 ml 240 ml # Voids 3 # Bowel Movements 4 1 Height (Feet): 5 Height (Inches): 7.00 Weight (Pounds): 150 General Appearance: no apparent distress EENT: normal ENT inspection Neck: supple Cardiovascular: normal rate Respiratory/Chest: decreased breath sounds Abdomen: normal bowel sounds, non tender, soft Extremities: non-tender Assessment/Plan Problem List: (1) S/P BKA (below knee amputation) ICD Codes: Z89.519 - Status post below knee amputation SNOMED: 287354472 (2) Anemia ICD Codes: D64.9 - Anemia, unspecified SNOMED: 401641218 (3) Hypothyroid ICD Codes: E03.9 - Hypothyroid SNOMED: 72017692 (4) Hypokalemia ICD Codes: E87.6 - Hypokalemia SNOMED: 02902188 (5) Stump injury ICD Codes: T14.8 - Other injury of unspecified body region SNOMED: 182551520 Assessment/Plan: no N/V no abd pain anemia work up reviewed linzess colace and miralax post op care will fu Akira Mullins MD Jun 23, 2020 08:06
[2020-06-23] MEDS: Docusate 100mg cap ORAL SCH ×2 (08:17→17:25)
[2020-06-23] MEDS: Heparin 5000 units/ml inj SUBQ SCH ×2 (08:19→20:16)
--- NOTE | 2020-06-23 08:25 | General Progress Note ---
Subjective Date patient seen: Jun 23, 2020 Time patient seen: 07:00 - am Allergies: Coded Allergies: No Known Allergies (Unverified , 01/04/17) Subjective HPI: This is a 84 y/o male who is being seen on the Med/surg floor of [facility]. Patient doing well and pain has been tolerated on the Dilaudid SubQ and Tabs. No new complaints at this time. REVIEW OF SYSTEMS: Denies rash, fever, chills, sweating, dizziness, drowsiness, or change in weight. No shortness of breath or chest pain. No nausea, vomiting, or blood in the stool or urine. He is complaining of bilateral lower extremity. Physical Exam: GENERAL: Alert, awake, and oriented x3. LUNGS: Decreased BS B/L. HEART: S1 S2 Regular. ABDOMEN: Benign. EXTREMITIES: Bilateral [id number]-akfv amputation noted. NEURO: No changes. Objective Last 24 Hour Vital Signs Date Time Temp Pulse Resp B/P (MAP) Pulse Ox O2 Delivery O2 Flow Rate FiO2 06/23/20 04:00 97.5 90 18 124/73 (90) 92 06/23/20 00:00 97.7 87 18 148/75 (99) 94 06/22/20 21:00 Room Air 06/22/20 20:00 98.2 87 17 119/72 (88) 97 06/22/20 16:00 97.2 91 18 116/63 (80) 95 06/22/20 12:18 97.0 06/22/20 12:00 97.0 92 18 118/68 (85) 99 06/22/20 09:00 Room Air Intake and Output 06/22/20 06/23/20 19:00 07:00 Intake Total 680 ml 240 ml Balance 680 ml 240 ml Intake Oral 680 ml 240 ml # Voids 3 # Bowel Movements 4 1 Height (Feet): 5 Height (Inches): 7.00 Weight (Pounds): 150 Assessment/Plan Assessment/Plan: (1) B/L BKA (2) B/L stump pain (3) s/p stump revision (4) Phantom limb pain The patient will be continued on Dilaudid. The patient was discussed with Dr. Velasquez and Dr. Velasquez concurred. Hiram Griffin Jun 23, 2020 08:25
--- NOTE | 2020-06-23 10:15 | NUR ---
RD ASSESSMENT & RECOMMENDATIONS SEE CARE ACTIVITY FOR COMPLETE ASSESSMENT DAILY ESTIMATED NEEDS: Needs based on Wound, bed bound 68kg 25-30 kcals/kg 6627-3183 total kcals 1.25-2 g protein/kg 85-136 g total protein 25-30 mL/kg 1229-4726 total fluid mLs NUTRITION DIAGNOSIS: Increased kcal and pro needs r/t wound healing as evidenced by s/p rt BKA stump wound revision. CURRENT DIET:Now Regular PO DIET RECOMMENDATIONS: Maintain Regular diet/ texture as tolerated ADDITIONAL RECOMMENDATIONS: 1) maintain calibrated bed scale wt 2) Surgical wound healing: Vit C 250mg BID + MVI x1 daily Higinio 1pkt BID 3) Add Ensure Enlive TID- variable po intake . . .
[2020-06-23 12:00] VITALS: BP 123/81
--- NOTE | 2020-06-23 15:29 | NUR ---
*-*DISCHARGE PLANNING*-* PATIENT HAS BEEN ACCEPTED TO: [facility] P: [phone] ROOM# [id number] [facility] [address] [facility] [id number].
[2020-06-23 16:00] VITALS: BP 127/71
--- NOTE | 2020-06-23 19:26 | Cardiology Progress Note ---
Assessment/Plan Assessment/Plan 1. Right knee lateral bone stump pain, now status post revision. 2. Nausea and vomiting postop, question related to sedation. 3. History of benign prostatic hypertrophy. 4. History of bilateral below-knee amputation. 5. iatrogenic hyperthyroid no futher gi sx doing well dvt ppx sq heparin gi appreciated to snf eventually when ok with dr oliveira on lower synthroid dose has min growth on urine ca no sx will not treat Subjective Cardiovascular: Denies: chest pain, lightheadedness, palpitations Respiratory: Denies: shortness of breath Gastrointestinal/Abdominal: Denies: abdominal pain Genitourinary: Denies: burning Objective Last 24 Hour Vital Signs Date Time Temp Pulse Resp B/P (MAP) Pulse Ox O2 Delivery O2 Flow Rate FiO2 06/23/20 16:00 97.7 97 18 127/71 (89) 95 06/23/20 12:00 97.2 93 20 123/81 (95) 96 06/23/20 09:00 Room Air 06/23/20 08:00 97.8 92 20 119/74 (89) 94 06/23/20 04:00 97.5 90 18 124/73 (90) 92 06/23/20 00:00 97.7 87 18 148/75 (99) 94 06/22/20 21:00 Room Air 06/22/20 20:00 98.2 87 17 119/72 (88) 97 General Appearance: no apparent distress, alert Neck: supple Cardiovascular: normal rate Respiratory/Chest: lungs clear Abdomen: normal bowel sounds, non tender, soft Extremities: no swelling Intake and Output 06/22/20 06/23/20 19:00 07:00 Intake Total 680 ml 240 ml Balance 680 ml 240 ml Intake Oral 680 ml 240 ml # Voids 3 # Bowel Movements 4 1 Elfego Preciado MD Jun 23, 2020 19:25
--- NOTE | 2020-06-23 19:29 | Operative Note - Dictated ---
DATE OF OPERATION: 06/18/2020 PREOPERATIVE DIAGNOSIS: Right knee pain secondary to protruding stump. POSTOPERATIVE DIAGNOSIS: Right knee pain secondary to protruding stump. PROCEDURE: Revision of below-knee amputation. SURGEON: Enrique Feldman MD TABLE GAMES DUAL RATE SUPERVISOR: Unknown. ESTIMATOR PRINTING: None. PREOPERATIVE NOTE: Patient is well known to me. We are trying to preserve his stump as if he goes above-knee, impossible for him to walk. I explained to him surgery and risks being failure to surgery. He has been worked up and ruled out for osteomyelitis and infectious issues. I explained to him that if this does not work, he will require an above-knee amputation to be deferred to someone else. Patient agreed and consented. OR NOTE: Under the benefit of endotracheal intubation general anesthetic, patient was given antibiotics IV. Incision made overlying the stump, incised through subcu tissue. The pain was more laterally and I then proceeded to use a saw and bone on the lateral aspect of the stump. The shape looked great and has good soft tissue covering over it. I did a soft tissue repair covering the lateral aspect of the stump. Patient tolerated this well. There were no complications. Patient went to recovery room in stable condition. Enrique Feldman M.D. DR: Samir JOB#: [id number] CC:
--- NOTE | 2020-06-23 19:52 | NUR ---
NURSE NOTES: Patient is awake, alert x 4. No complaint of pain or discomfort noted at this moment. Kept clean and comfortable. Abdomen is soft and non distended. Respiration is even and unlabored. right upper chest line noted, intact. call light is at bedside. Will continue plan of care.
[2020-06-23 20:00] VITALS: BP 134/73
[2020-06-23] MEDS: Dyna-Hex 2% Top Sol 2oz TOPIC SCH (20:15)
[2020-06-23] MEDS: Miralax 17gm pkt ORAL SCH (20:15)
--- NOTE | 2020-06-24 00:32 | NUR ---
NURSE NOTES: Patient refused midnight vital signs, alert x 4. No s/s of distress. Call light is at bedside.
--- NOTE | 2020-06-24 00:32 | NUR ---
NURSE NOTES: patient refuse dressing change, patient is alert x 4.
[2020-06-24 04:00] VITALS: BP 118/75
[2020-06-24] MEDS: HYDROmorphone 2mg tab ORAL PRN ×3 (06:10→21:33)
--- NOTE | 2020-06-24 07:34 | NUR ---
NURSE HAND-OFF: Important Events on Shift:WNL, given PRN pain medication Patient Status: WNL Diet: Pending Orders: Pending Results/Labs: Pending MD notification: Latest Vital Signs: Temperature 97.8 , Pulse 70 , B/P 118 /75 , Respiratory Rate 20 , O2 SAT 95 , Nasal Cannula, O2 Flow Rate 3 . Vital Sign Comment: Latest Carter Fall Score: 95 Fall Risk: High Risk Safety Measures: Call light Within Reach, Bed Alarm , Side Rails Side Rails x2, Bed position Low and Locked. Fall Precautions: Patient Fall Education Report given to Koko Zabala.
[2020-06-24 08:00] VITALS: BP 116/67
[2020-06-24] MEDS: Docusate 100mg cap ORAL SCH ×2 (09:00→18:00)
[2020-06-24] MEDS: Heparin 5000 units/ml inj SUBQ SCH ×2 (09:53→21:00)
--- NOTE | 2020-06-24 11:53 | General Progress Note ---
Subjective ROS Limited/Unobtainable: No Allergies: Coded Allergies: No Known Allergies (Unverified , 01/04/17) Objective Last 24 Hour Vital Signs Date Time Temp Pulse Resp B/P (MAP) Pulse Ox O2 Delivery O2 Flow Rate FiO2 06/24/20 08:00 97.2 82 18 116/67 (83) 95 06/24/20 04:00 97.8 70 20 118/75 (89) 95 06/23/20 20:36 Room Air 06/23/20 20:00 98.6 93 20 134/73 (93) 95 06/23/20 16:00 97.7 97 18 127/71 (89) 95 06/23/20 12:00 97.2 93 20 123/81 (95) 96 Intake and Output 06/23/20 06/24/20 19:00 07:00 Intake Total 720 ml 1000 ml Output Total 650 ml Balance 720 ml 350 ml Intake Oral 720 ml 1000 ml Output Urine Total 650 ml # Voids 3 1 # Bowel Movements 4 1 Height (Feet): 5 Height (Inches): 7.00 Weight (Pounds): 150 General Appearance: no apparent distress EENT: normal ENT inspection Neck: normal alignment Cardiovascular: normal rate Respiratory/Chest: decreased breath sounds Abdomen: normal bowel sounds, non tender, soft Extremities: non-tender Assessment/Plan Problem List: (1) S/P BKA (below knee amputation) ICD Codes: Z89.519 - Status post below knee amputation SNOMED: 181180084 (2) Anemia ICD Codes: D64.9 - Anemia, unspecified SNOMED: 873775112 (3) Hypothyroid ICD Codes: E03.9 - Hypothyroid SNOMED: 55561539 (4) Hypokalemia ICD Codes: E87.6 - Hypokalemia SNOMED: 39616223 (5) Stump injury ICD Codes: T14.8 - Other injury of unspecified body region SNOMED: 250957852 Assessment/Plan: no N/V no abd pain anemia work up reviewed linzess colace and miralax post op care will fu Akira Mullins MD Jun 24, 2020 11:53
[2020-06-24 12:00] VITALS: BP 105/57
--- NOTE | 2020-06-24 15:47 | Cardiology Progress Note ---
Assessment/Plan Assessment/Plan 1. Right knee lateral bone stump pain, now status post revision. 2. Nausea and vomiting postop, question related to sedation. 3. History of benign prostatic hypertrophy. 4. History of bilateral below-knee amputation. 5. iatrogenic hyperthyroid 6. dysuria / uti c/o dysuria today dvt ppx sq heparin gi appreciated to snf eventually when ok with dr oliveira on lower synthroid dose has min growth on urine cx proteus now has sx as of today will repeat u/a and c/s id consult abx Subjective Cardiovascular: Denies: chest pain, lightheadedness, palpitations Respiratory: Denies: SOB with excertion Gastrointestinal/Abdominal: Denies: abdominal pain Genitourinary: Reports: burning Objective Last 24 Hour Vital Signs Date Time Temp Pulse Resp B/P (MAP) Pulse Ox O2 Delivery O2 Flow Rate FiO2 06/24/20 12:00 97.5 79 20 105/57 (73) 95 06/24/20 09:00 Room Air 06/24/20 08:00 97.2 82 18 116/67 (83) 95 06/24/20 04:00 97.8 70 20 118/75 (89) 95 06/23/20 20:36 Room Air 06/23/20 20:00 98.6 93 20 134/73 (93) 95 06/23/20 16:00 97.7 97 18 127/71 (89) 95 General Appearance: no apparent distress, alert Neck: supple Cardiovascular: normal rate, regular rhythm Respiratory/Chest: lungs clear Abdomen: normal bowel sounds, non tender, soft Extremities: other - amputee Intake and Output 06/23/20 06/24/20 19:00 07:00 Intake Total 720 ml 1000 ml Output Total 650 ml Balance 720 ml 350 ml Intake Oral 720 ml 1000 ml Output Urine Total 650 ml # Voids 3 1 # Bowel Movements 4 1 Elfego Preciado MD Jun 24, 2020 15:46
[2020-06-24 16:00] VITALS: BP 102/61
[2020-06-24] MEDS ORDERED: Levofloxacin 500mg tab ORAL SCH ×2 (16:00→21:00)
--- NOTE | 2020-06-24 18:13 | Infectious Diseases Prog Note ---
Assessment/Plan Assessment/Plan Full consult dictated: A) 1) proteus uti on most recent urine culture 2) hx morganella uti 3) + dysuria and frequency per patient, + ua 4) s/p revision of right bka stump for protruding stump and right knee pain 5) allergies - nkda 6) pmh noted 7) mrsa colonization P) 1) levofloxacin 2) f/u urinalysis and culture 3) d/w Dr. Preciado 4) will f/u 5) thank you Subjective Allergies: Coded Allergies: No Known Allergies (Unverified , 01/04/17) Objective Last 24 Hour Vital Signs Date Time Temp Pulse Resp B/P (MAP) Pulse Ox O2 Delivery O2 Flow Rate FiO2 06/24/20 16:00 97.8 85 20 102/61 (75) 95 06/24/20 14:50 97.5 06/24/20 12:00 97.5 79 20 105/57 (73) 95 06/24/20 09:00 Room Air 06/24/20 08:00 97.2 82 18 116/67 (83) 95 06/24/20 04:00 97.8 70 20 118/75 (89) 95 06/23/20 20:36 Room Air 06/23/20 20:00 98.6 93 20 134/73 (93) 95 Height (Feet): 5 Height (Inches): 7.00 Weight (Pounds): 150 Current Medications Medications (Trade) Dose Ordered Sig/Trever Route PRN Reason Start Time Stop Time Status Last Admin Dose Admin Chlorhexidine Gluconate (Sammie-Hex 2%) 1 applic DAILY@1999 TOPIC 06/21/20 20:00 09/19/20 19:59 06/23/20 20:15 Docusate Sodium (Colace) 100 mg TWICE A DAY ORAL 06/19/20 18:00 07/19/20 17:59 06/21/20 08:40 Heparin Sodium (Porcine) (Heparin 5000 units/ml) 5,000 units EVERY 12 HOURS SUBQ 06/19/20 21:00 08/03/20 20:59 06/24/20 09:53 Hydromorphone HCl (Dilaudid) 2 mg Q2H PRN SUBQ Severe Pain (Pain Scale 7-10) 06/23/20 11:15 06/27/20 08:29 Hydromorphone HCl (Dilaudid) 2 mg Q4H PRN ORAL Severe Pain (Pain Scale 7-10) 06/22/20 11:45 06/29/20 11:44 06/24/20 14:20 Levofloxacin (Levaquin) 250 mg Q24H ORAL 06/25/20 16:00 07/02/20 15:59 Levofloxacin (Levaquin) 500 mg ONCE ORAL 06/24/20 16:00 06/24/20 23:59 Levothyroxine Sodium (Synthroid) 75 mcg ACBREAKFAST ORAL 06/20/20 06:30 07/20/20 06:29 06/24/20 06:10 Levothyroxine Sodium (Synthroid) 100 mcg BEFORE BREAKFAST ORAL 06/20/20 06:30 07/20/20 06:29 06/24/20 06:10 Linaclotide (Linzess) 290 mcg BEFORE BREAKFAST ORAL 06/21/20 06:30 09/19/20 06:29 06/24/20 06:10 Mirtazapine (Remeron) 15 mg BEDTIME ORAL 06/18/20 21:00 09/16/20 20:59 06/23/20 20:15 Polyethylene Glycol (Miralax) 17 gm BEDTIME ORAL 06/19/20 21:00 07/19/20 20:59 06/20/20 20:53 Temazepam (Restoril) 30 mg BEDTIME PRN ORAL insomnia 06/19/20 08:45 06/26/20 08:44 06/23/20 21:44 Celine Yi MD Jun 24, 2020 18:13
--- NOTE | 2020-06-24 18:28 | General Progress Note ---
Subjective Date patient seen: Jun 24, 2020 Time patient seen: 04:30 - pm Allergies: Coded Allergies: No Known Allergies (Unverified , 01/04/17) Subjective HPI: This is a 84 y/o male who is being seen on the tele floor of [facility] [place]. Patient reports pain has been tolerated on the Dilaudid. Having no new complaints at this time. REVIEW OF SYSTEMS: Denies rash, fever, chills, sweating, dizziness, drowsiness, or change in weight. No shortness of breath or chest pain. No nausea, vomiting, or blood in the stool or urine. He is complaining of bilateral lower extremity. Physical Exam: GENERAL: Alert, awake, and oriented x3. LUNGS: Decreased BS B/L. HEART: S1 S2 Regular. ABDOMEN: Benign. EXTREMITIES: Bilateral [id number]-[id number] amputation noted. NEURO: No changes. Objective Last 24 Hour Vital Signs Date Time Temp Pulse Resp B/P (MAP) Pulse Ox O2 Delivery O2 Flow Rate FiO2 06/24/20 16:00 97.8 85 20 102/61 (75) 95 06/24/20 14:50 97.5 06/24/20 12:00 97.5 79 20 105/57 (73) 95 06/24/20 09:00 Room Air 06/24/20 08:00 97.2 82 18 116/67 (83) 95 06/24/20 04:00 97.8 70 20 118/75 (89) 95 06/23/20 20:36 Room Air 06/23/20 20:00 98.6 93 20 134/73 (93) 95 Intake and Output 06/23/20 06/24/20 19:00 07:00 Intake Total 720 ml 1000 ml Output Total 650 ml Balance 720 ml 350 ml Intake Oral 720 ml 1000 ml Output Urine Total 650 ml # Voids 3 1 # Bowel Movements 4 1 Height (Feet): 5 Height (Inches): 7.00 Weight (Pounds): 150 Assessment/Plan Assessment/Plan: (1) B/L BKA (2) B/L stump pain (3) s/p stump revision (4) Phantom limb pain The patient will be continued on Dilaudid. The patient was discussed with Dr. Velasquez and Dr. Velasquez concurred. Hiram Griffin Jun 24, 2020 18:28
--- NOTE | 2020-06-24 19:42 | NUR ---
NURSE NOTES: Patient in bed, awake, alert x 4. Abdomen is soft and non distended. Noted with right upper chest line, intact. Skin is warm and dry. Bed in low and locked position. Provide safe environment. respiration is even and unlabored. No complaint of pain or discomfort at the moment. Call light is at bedside. Will continue plan of care.
[2020-06-24 19:47] VITALS: BP 113/62
[2020-06-24] MEDS: Miralax 17gm pkt ORAL SCH (21:00)
--- NOTE | 2020-06-24 21:28 | Consultation ---
DATE OF CONSULTATION: 06/24/2020 INFECTIOUS DISEASE CONSULTATION CONSULTING PHYSICIAN: Celine Yi MD. ATTENDING PHYSICIAN: Enrique Feldman MD. REFERRING PHYSICIAN: Elfego Preciado MD. REASON FOR CONSULTATION: Complicated UTI. CHIEF COMPLAINT: The patient's chief complaint coming in the hospital is right knee pain. HISTORY OF PRESENT ILLNESS: This is a very pleasant 84-year-old male who comes into [facility] with right knee pain. The patient has bilateral below-knee amputations. The patient had protruding right knee stump. The patient was worked up for infection and it was negative. Because of the protruding right knee stump, the patient needed a revision to avoid a right AKA and decrease in ambulation. The patient is status post revision of the right BKA done on 06/23/2020. The patient had what looks like urinary tract infection with urinalysis 20-30 white blood cells and urine culture grown out Morganella previously. Followup urine culture from 06/18/2020, which is most recent urine culture had ESBL Proteus that was sensitive to Levaquin. A followup UA and C and S has been ordered. Infectious Disease consultation was requested for antibiotic management in this patient with complicated UTI. He is colonized with MRSA. Case was discussed with Dr. Preciado. In discussing with the patient, he does have urinary symptoms including dysuria and frequency. MAR is noted. Orders were noted. Notes and records reviewed. REVIEW OF SYSTEMS: CONSTITUTIONAL: He is status post right BKA revision. Pain controlled. No chills, night sweats, or fevers. HEAD AND NECK: No head pain, neck pain, thrush, or dysphagia. CARDIAC: No chest pain or palpitations. PULMONARY: No cough, congestion, or shortness of breath. No hemoptysis or secretions. GASTROINTESTINAL: No nausea, vomiting, abdominal pain, or diarrhea. GENITOURINARY: He does have urinary frequency and dysuria. No CVA tenderness. SKIN: No rash. EXTREMITIES: Right BKA. Pain controlled. No other joint pain. NEUROLOGIC: No seizures. Generalized fatigue. No focal weakness. PAST MEDICAL HISTORY: The patient has a past medical history of bilateral BKA and peripheral vascular disease, has a history of melanoma in remission, history of wound dehiscence, history of right [id number]-sal-ytfs amputation protrusion, history of debridement, history of anemia, iron deficiency anemia, history of urinary tract infection, hypothyroidism, history of sacral wound, history of electrolyte imbalance, history of thrombocytopenia and BPH, history of sinus tachycardia, and possible peripheral vascular disease also. No diabetes or hypertension mentioned. ALLERGIES: He has no known drug allergies. No antibiotic allergies. SOCIAL HISTORY: Negative for smoking, alcohol, or drug abuse. FAMILY HISTORY: Noncontributory. Negative for tuberculosis or cancer. MEDICATIONS: Upon reviewing the MAR, he is on following medications. He is on Levaquin. He is on hydromorphone, chlorhexidine. He is on levothyroxine. He is on heparin, polyethylene glycol, temazepam. He is on docusate and mirtazapine. Outside medication noted and reconciliated. PHYSICAL EXAMINATION: VITAL SIGNS: Temperature is 97.8, pulse 85, respiratory rate 20, blood pressure 102/61. Saturation 95% on room air. GENERAL: Alert and responsive, in no distress, oriented x3. HEAD AND NECK: Oral exam, no thrush. Eye exam, no icterus. Neck is supple. No JVD. HEART: Regular. No gallop or murmur. No friction rub. ABDOMEN: Soft. Positive bowel sounds. Nontender. LUNGS: Clear bilaterally. No rhonchi or rales. SKIN: No rash or dermatitis. Right BKA surgical site is covered. MUSCULOSKELETAL: He has bilateral BKA. PERIPHERAL VASCULAR: Bilateral BKA. His thighs have no cellulitis. LINE SITES: Without phlebitis. GENITOURINARY: No Godwin. No CVA tenderness. NEUROLOGIC: He is alert and oriented. Nonfocal. LABORATORY DATA: White count 4.8, hemoglobin 9.6. Creatinine 1.1. Cultures, urine culture most recent one on June 18, 2020 had Proteus that was ESBL sensitive to Levaquin, Zosyn, and meropenem. MRSA screen is positive. COVID testing is negative. Previous urine culture had Morganella morganii. Sensitivities were noted. IMAGING: Chest x-ray showed no acute cardiopulmonary disease. ASSESSMENT AND PLAN: 1. The patient has complicated urinary tract infection with urinary frequency and dysuria. The patient's urinalysis did have 20 to 30 white blood cells and 2+ leukocyte esterase. Followup UA and C and S has been ordered. Based on sensitivities of the Proteus organism looks like it is Proteus urinary tract infection sensitive to Levaquin, meropenem, and Zosyn. It was an ESBL organism, however, the patient is not critically sick and Levaquin should be sufficient to treat this patient. Continue Levaquin for Proteus mirabilis ESBL E. coli UTI and monitor the patient clinically. Monitor his dysuria and frequency, and check followup UA and C and S. The patient does have previous Morganella UTI that was noted in the cultures. The patient is colonized with MRSA. Today is day #1 of Levaquin. Plan on 3 to 5-day treatment course and again we will follow up with followup UA and C and S. 2. MRSA colonization. 3. The patient is status post revision of the right BKA protruding stump for right knee. 4. Hypothyroidism. Continue levothyroxine. 5. No history of diabetes and hypertension. 6. Peripheral vascular disease and bilateral BKA. 7. Melanoma in remission. 8. History of wound dehiscence and debridement. 9. History of BPH. 10. Anemia. 11. History of UTI. 12. Thyroid supplementation for hypothyroidism. 13. History of sacral wound. 14. Wound care protocol. 15. History of thrombocytopenia. 16. No known drug allergies. 17. Social history is negative for smoking, alcohol, and drug abuse. 18. Family history is noncontributory. 19. MAR is noted. 20. Case was discussed with RN. 21. Case was discussed with Dr. Preciado and also with the patient. Celine Yi M.D. DR: ARMANDO JOB#: [id number] CC:
[2020-06-24 21:33] LABS: APPEARANCE,URINE CLEAR; BILIRUBIN, URINE NEGATIVE (NEGATIVE); COLOR,URINE PALE YELLOW; GLUCOSE, URINE (UA) NEGATIVE (NEGATIVE); KETONES,URINE NEGATIVE (NEGATIVE); LEUKOCYTE ESTERASE ,URINE 1+ (NEGATIVE); NITRITE,URINE NEGATIVE (NEGATIVE); PH,URINE 5 (4.5-8.0); PROTEIN,URINE NEGATIVE (NEGATIVE); UROBILINOGEN,URINE NORMAL MG/DL (0.0-1.0)
[2020-06-24] MEDS: Dyna-Hex 2% Top Sol 2oz TOPIC SCH (21:39)
[2020-06-24 23:40] VITALS: BP 110/61
[2020-06-25 04:00] VITALS: BP 104/63
[2020-06-25] MEDS: HYDROmorphone 2mg tab ORAL PRN ×4 (06:08→21:05)
[2020-06-25 07:04] LABS: BASOPHILS % (AUTO) 1.2 % (0.0-2.0); EOSINOPHILS % (AUTO) 6.4 % (0.0-3.0); HEMATOCRIT 32.4 % (42.0-52.0); HEMOGLOBIN 10.8 G/DL (14.2-18.0); LYMPHOCYTES % (AUTO) 31.7 % (20.0-45.0); MEAN CORPUSCULAR VOLUME 90 FL (80-99); NEUTROPHILS % (AUTO) 51.7 % (45.0-75.0); PLATELET COUNT 131 K/UL (150-450); RED CELL DISTRIBUTION WIDTH 14.1 % (11.6-14.8); WHITE BLOOD COUNT 4.2 K/UL (4.8-10.8)
[2020-06-25 07:08] LABS: ALBUMIN 2.7 G/DL (3.4-5.0); ALBUMIN/GLOBULIN RATIO 0.6 (1.0-2.7); BILIRUBIN,TOTAL 0.5 MG/DL (0.2-1.0); CALCIUM 9.1 MG/DL (8.5-10.1); CREATININE 1.2 MG/DL (0.55-1.30); POTASSIUM 4.2 MMOL/L (3.5-5.1)
--- NOTE | 2020-06-25 07:14 | General Progress Note ---
Subjective ROS Limited/Unobtainable: Yes Allergies: Coded Allergies: No Known Allergies (Unverified , 01/04/17) Objective Last 24 Hour Vital Signs Date Time Temp Pulse Resp B/P (MAP) Pulse Ox O2 Delivery O2 Flow Rate FiO2 06/25/20 04:00 97.9 76 18 104/63 (77) 95 06/24/20 23:40 98.3 82 18 110/61 (77) 96 06/24/20 20:06 Room Air 06/24/20 19:47 97.9 81 18 113/62 (79) 95 06/24/20 16:00 97.8 85 20 102/61 (75) 95 06/24/20 14:50 97.5 06/24/20 12:00 97.5 79 20 105/57 (73) 95 06/24/20 09:00 Room Air 06/24/20 08:00 97.2 82 18 116/67 (83) 95 Intake and Output 06/24/20 06/25/20 19:00 07:00 Intake Total 540 ml 480 ml Output Total 200 ml 450 ml Balance 340 ml 30 ml Intake Oral 540 ml 480 ml Output Urine Total 200 ml 450 ml # Voids 2 # Bowel Movements 2 Laboratory Tests 06/24/20 21:00: Urine Color Pale yellow, Urine Appearance Clear, Urine pH 5, Urine Specific [place] 1.015, Urine Protein Negative, Urine Glucose (UA) Negative, Urine Ketones Negative, Urine Blood Negative, Urine Nitrite Negative, Urine Bilirubin Negative, Urine Urobilinogen Normal, Urine Leukocyte Esterase 1+H, Urine RBC 0- 2H, Urine WBC 20-30H, Urine Squamous Epithelial Cells Few, Urine Bacteria ModerateH 06/25/20 06:39: White Blood Count 4.2L, Red Blood Count 3.60L, Hemoglobin 10.8L, Hematocrit 32.4L, Mean Corpuscular Volume 90, Mean Corpuscular Hemoglobin 30.0, Mean Corpuscular Hemoglobin Concent 33.3, Red Cell Distribution Width 14.1, Platelet Count 131L, Mean Platelet Volume 8.8, Neutrophils (%) (Auto) 51.7, Lymphocytes (%) (Auto) 31.7, Monocytes (%) (Auto) 9.0, Eosinophils (%) (Auto) 6.4H, Basophils (%) (Auto) 1.2, Sodium Level 141, Potassium Level 4.2, Chloride Level 106, Carbon Dioxide Level 28, Anion Gap 8, Blood Urea Nitrogen 32H, Creatinine 1.2, Estimat Glomerular Filtration Rate 57.4, Glucose Level 104, Calcium Level 9.1, Total Bilirubin 0.5, Aspartate Amino Transf (AST/SGOT) 32, Alanine Aminotransferase (ALT/SGPT) 24, Alkaline Phosphatase 116, Total Protein 6.9, Albumin 2.7L, Globulin 4.2, Albumin/Globulin Ratio 0.6L Height (Feet): 5 Height (Inches): 7.00 Weight (Pounds): 150 General Appearance: no apparent distress EENT: normal ENT inspection Neck: supple Cardiovascular: normal rate Respiratory/Chest: lungs clear Extremities: non-tender Assessment/Plan Problem List: (1) S/P BKA (below knee amputation) ICD Codes: Z89.519 - Status post below knee amputation SNOMED: 670352244 (2) Anemia ICD Codes: D64.9 - Anemia, unspecified SNOMED: 636511472 (3) Hypothyroid ICD Codes: E03.9 - Hypothyroid SNOMED: 61150946 (4) Hypokalemia ICD Codes: E87.6 - Hypokalemia SNOMED: 31006587 (5) Stump injury ICD Codes: T14.8 - Other injury of unspecified body region SNOMED: 903449001 Assessment/Plan: no N/V no abd pain anemia work up reviewed linzess colace and miralax>>>will dc given diarrhea abx per ID post op care will fu Akira Mullins MD Jun 25, 2020 07:14
--- NOTE | 2020-06-25 07:21 | NUR ---
NURSE HAND-OFF: Important Events on Shift:WNL Patient Status: WNL Diet: REG Pending Orders: Pending Results/Labs: Pending MD notification: Latest Vital Signs: Temperature 97.9 , Pulse 76 , B/P 104 /63 , Respiratory Rate 18 , O2 SAT 95 , Nasal Cannula, O2 Flow Rate 3 . Vital Sign Comment: WNL Latest Carter Fall Score: 60 Fall Risk: High Risk Safety Measures: Call light Within Reach, Bed Alarm , Side Rails Side Rails x2, Bed position Low and Locked. Fall Precautions: Patient Fall Education Report given to AUSTEN Francisco.
[2020-06-25 08:00] VITALS: BP 103/49
--- NOTE | 2020-06-25 08:19 | General Progress Note ---
Subjective Date patient seen: Jun 25, 2020 Time patient seen: 07:00 - am Allergies: Coded Allergies: No Known Allergies (Unverified , 01/04/17) Subjective HPI: This is a 84 y/o male who is being seen on the tele floor of [facility] [place]. Patient states pain has been tolerated on the Dilaudid, in bed and showing no signs of pain or distress. Has no new complaints at this time. REVIEW OF SYSTEMS: Denies rash, fever, chills, sweating, dizziness, drowsiness, or change in weight. No shortness of breath or chest pain. No nausea, vomiting, or blood in the stool or urine. He is complaining of bilateral lower extremity. Physical Exam: GENERAL: Alert, awake, and oriented x3. LUNGS: Decreased BS B/L. HEART: S1 S2 Regular. ABDOMEN: Benign. EXTREMITIES: Bilateral lzqjn-bwe-wqey amputation noted. NEURO: No changes. Objective Last 24 Hour Vital Signs Date Time Temp Pulse Resp B/P (MAP) Pulse Ox O2 Delivery O2 Flow Rate FiO2 06/25/20 08:00 97.2 78 20 103/49 (67) 96 06/25/20 04:00 97.9 76 18 104/63 (77) 95 06/24/20 23:40 98.3 82 18 110/61 (77) 96 06/24/20 20:06 Room Air 06/24/20 19:47 97.9 81 18 113/62 (79) 95 06/24/20 16:00 97.8 85 20 102/61 (75) 95 06/24/20 14:50 97.5 06/24/20 12:00 97.5 79 20 105/57 (73) 95 06/24/20 09:00 Room Air Intake and Output 06/24/20 06/25/20 19:00 07:00 Intake Total 540 ml 480 ml Output Total 200 ml 450 ml Balance 340 ml 30 ml Intake Oral 540 ml 480 ml Output Urine Total 200 ml 450 ml # Voids 2 # Bowel Movements 2 Laboratory Tests 06/24/20 21:00: Urine Color Pale yellow, Urine Appearance Clear, Urine pH 5, Urine Specific [place] 1.015, Urine Protein Negative, Urine Glucose (UA) Negative, Urine Ketones Negative, Urine Blood Negative, Urine Nitrite Negative, Urine Bilirubin Negative, Urine Urobilinogen Normal, Urine Leukocyte Esterase 1+H, Urine RBC 0- 2H, Urine WBC 20-30H, Urine Squamous Epithelial Cells Few, Urine Bacteria ModerateH 06/25/20 06:39: White Blood Count 4.2L, Red Blood Count 3.60L, Hemoglobin 10.8L, Hematocrit 32.4L, Mean Corpuscular Volume 90, Mean Corpuscular Hemoglobin 30.0, Mean Corpuscular Hemoglobin Concent 33.3, Red Cell Distribution Width 14.1, Platelet Count 131L, Mean Platelet Volume 8.8, Neutrophils (%) (Auto) 51.7, Lymphocytes (%) (Auto) 31.7, Monocytes (%) (Auto) 9.0, Eosinophils (%) (Auto) 6.4H, Basophils (%) (Auto) 1.2, Sodium Level 141, Potassium Level 4.2, Chloride Level 106, Carbon Dioxide Level 28, Anion Gap 8, Blood Urea Nitrogen 32H, Creatinine 1.2, Estimat Glomerular Filtration Rate 57.4, Glucose Level 104, Calcium Level 9.1, Total Bilirubin 0.5, Aspartate Amino Transf (AST/SGOT) 32, Alanine Aminotransferase (ALT/SGPT) 24, Alkaline Phosphatase 116, Total Protein 6.9, Albumin 2.7L, Globulin 4.2, Albumin/Globulin Ratio 0.6L Height (Feet): 5 Height (Inches): 7.00 Weight (Pounds): 150 Assessment/Plan Assessment/Plan: (1) B/L BKA (2) B/L stump pain (3) s/p stump revision (4) Phantom limb pain The patient will be continued on Dilaudid. The patient was discussed with Dr. Velasquez and Dr. Velasquez concurred. Hiram Griffin Jun 25, 2020 08:19
[2020-06-25] MEDS: Heparin 5000 units/ml inj SUBQ SCH ×2 (09:02→20:52)
--- NOTE | 2020-06-25 10:16 | NUR ---
RD ASSESSMENT & RECOMMENDATIONS SEE CARE ACTIVITY FOR COMPLETE ASSESSMENT DAILY ESTIMATED NEEDS: Needs based on Wound, bed bound 68kg 25-30 kcals/kg 7661-6147 total kcals 1.25-2 g protein/kg 85-136 g total protein 25-30 mL/kg 3232-0377 total fluid mLs NUTRITION DIAGNOSIS: Increased kcal and pro needs r/t wound healing as evidenced by s/p rt BKA stump wound revision. CURRENT DIET:Now Regular PO DIET RECOMMENDATIONS: Maintain Regular diet/ texture as tolerated ADDITIONAL RECOMMENDATIONS: 1) maintain calibrated bed scale wt 2) Surgical wound healing: Vit C 250mg BID + MVI x1 daily Higinio 1pkt BID 3) Add Ensure Enlive TID- variable po intake Remove as per pt request, pt reports dislike . .
[2020-06-25 12:00] VITALS: BP 112/63
[2020-06-25 16:00] VITALS: BP 102/59
--- NOTE | 2020-06-25 19:57 | Cardiology Progress Note ---
Assessment/Plan Assessment/Plan 1. Right knee lateral bone stump pain, now status post revision. 2. Nausea and vomiting postop, question related to sedation. 3. History of benign prostatic hypertrophy. 4. History of bilateral below-knee amputation. 5. iatrogenic hyperthyroid 6. dysuria / uti c/o dysuria today dvt ppx sq heparin to snf on lower synthroid dose s/p repeat u/a and c/s id consult appreciated abx stated yet Subjective Cardiovascular: Denies: chest pain Respiratory: Denies: shortness of breath, SOB with excertion Gastrointestinal/Abdominal: Denies: abdominal pain Genitourinary: Reports: burning Objective Last 24 Hour Vital Signs Date Time Temp Pulse Resp B/P (MAP) Pulse Ox O2 Delivery O2 Flow Rate FiO2 06/25/20 16:00 97.2 81 20 102/59 (73) 96 06/25/20 12:00 97.9 79 18 112/63 (79) 95 06/25/20 09:00 Room Air 06/25/20 08:00 97.2 78 20 103/49 (67) 96 06/25/20 04:00 97.9 76 18 104/63 (77) 95 06/24/20 23:40 98.3 82 18 110/61 (77) 96 06/24/20 20:06 Room Air General Appearance: no apparent distress, alert Neck: supple Cardiovascular: normal rate Respiratory/Chest: lungs clear Abdomen: normal bowel sounds, non tender, soft Extremities: no swelling Intake and Output 06/24/20 06/25/20 19:00 07:00 Intake Total 540 ml 480 ml Output Total 200 ml 450 ml Balance 340 ml 30 ml Intake Oral 540 ml 480 ml Output Urine Total 200 ml 450 ml # Voids 2 # Bowel Movements 2 Laboratory Tests Test 06/24/20 21:00 06/25/20 06:39 Urine Color Pale yellow Urine Appearance Clear Urine pH 5 (4.5-8.0) Urine Specific [place] 1.015 (1.005-1.035) Urine Protein Negative (NEGATIVE) Urine Glucose (UA) Negative (NEGATIVE) Urine Ketones Negative (NEGATIVE) Urine Blood Negative (NEGATIVE) Urine Nitrite Negative (NEGATIVE) Urine Bilirubin Negative (NEGATIVE) Urine Urobilinogen Normal MG/DL (0.0-1.0) Urine Leukocyte Esterase 1+ (NEGATIVE) H Urine RBC 0-2 /HPF (0 - 0) H Urine WBC 20-30 /HPF (0 - 0) H Urine Squamous Epithelial Cells Few /LPF (NONE/OCC) Urine Bacteria Moderate /HPF (NONE) H White Blood Count 4.2 K/UL (4.8-10.8) L Red Blood Count 3.60 M/UL (4.70-6.10) L Hemoglobin 10.8 G/DL (14.2-18.0) L Hematocrit 32.4 % (42.0-52.0) L Mean Corpuscular Volume 90 FL (80-99) Mean Corpuscular Hemoglobin 30.0 PG (27.0-31.0) Mean Corpuscular Hemoglobin Concent 33.3 G/DL (32.0-36.0) Red Cell Distribution Width 14.1 % (11.6-14.8) Platelet Count 131 K/UL (150-450) L Mean Platelet Volume 8.8 FL (6.5-10.1) Neutrophils (%) (Auto) 51.7 % (45.0-75.0) Lymphocytes (%) (Auto) 31.7 % (20.0-45.0) Monocytes (%) (Auto) 9.0 % (1.0-10.0) Eosinophils (%) (Auto) 6.4 % (0.0-3.0) H Basophils (%) (Auto) 1.2 % (0.0-2.0) Sodium Level 141 MMOL/L (136-145) Potassium Level 4.2 MMOL/L (3.5-5.1) Chloride Level 106 MMOL/L (98-107) Carbon Dioxide Level 28 MMOL/L (21-32) Anion Gap 8 mmol/L (5-15) Blood Urea Nitrogen 32 mg/dL (7-18) H Creatinine 1.2 MG/DL (0.55-1.30) Estimat Glomerular Filtration Rate 57.4 mL/min (>60) Glucose Level 104 MG/DL (74-106) Calcium Level 9.1 MG/DL (8.5-10.1) Total Bilirubin 0.5 MG/DL (0.2-1.0) Aspartate Amino Transf (AST/SGOT) 32 U/L (15-37) Alanine Aminotransferase (ALT/SGPT) 24 U/L (12-78) Alkaline Phosphatase 116 U/L (46-116) Total Protein 6.9 G/DL (6.4-8.2) Albumin 2.7 G/DL (3.4-5.0) L Globulin 4.2 g/dL Albumin/Globulin Ratio 0.6 (1.0-2.7) L Microbiology Date/Time Source Procedure Growth Status 06/24/20 21:00 Urine,Clean Catch Urine Culture - Preliminary Gram Negative Reinaldo Resulted Elfego Preciado MD Jun 25, 2020 19:57
[2020-06-25 20:00] VITALS: BP 105/59
[2020-06-25] MEDS: Dyna-Hex 2% Top Sol 2oz TOPIC SCH (20:51)
[2020-06-26] VITALS: BP 100/54
[2020-06-26 04:00] VITALS: BP 105/60
[2020-06-26] MEDS: HYDROmorphone 2mg tab ORAL PRN ×2 (06:35→13:00)
--- NOTE | 2020-06-26 07:45 | NUR ---
NURSE NOTES: Received report from AUSTEN Lozada. Pt awake in bed, alert and oriented, but periods of forgetful. Denied any pain at this time. Pt has a right subclavian PICC in place. Call light within reach, bed locked and in lowest position. Will continue to monitor.
[2020-06-26 08:00] VITALS: BP 101/50
[2020-06-26] MEDS: Heparin 5000 units/ml inj SUBQ SCH (08:32)
--- NOTE | 2020-06-26 11:03 | NUR ---
NURSE NOTES: Spoke to nursing mineral wool insulation supervisor and was informed that pt has not been seen by Internal doctor and there is no H&P note. Contact Dr. Feldman office and spoke to receptionist doctor's office to let the doctor know this issue. According to the receptionist doctor's office, doctor aware and will talk to the pad cutter. Will follow up.
[2020-06-26 12:00] VITALS: BP 104/54
--- NOTE | 2020-06-26 14:13 | NUR ---
*-*DISCHARGE PLAN*-* PATIENT HAS BEEN ACCEPTED AND WILL BE DISCHARGED TO: [facility] P: [phone] FOR NURSE TO NURSE REPORT ROOM# 25.[facility] SET FOR 3:30PM S/W [place] [id number].
--- NOTE | 2020-06-26 14:27 | General Progress Note ---
Subjective Date patient seen: Jun 26, 2020 Time patient seen: 14:26 Allergies: Coded Allergies: No Known Allergies (Unverified , 01/04/17) Subjective HPI: This is a 84 y/o male who [place] [facility] [place] Patient reports pain has been tolerated on the Dilaudid. Having no new complaints at this time. . REVIEW OF SYSTEMS: Denies rash, fever, chills, sweating, dizziness, drowsiness, or change in weight. No shortness of breath or chest pain. No nausea, vomiting, or blood in the stool or urine. He is complaining of bilateral lower extremity. Physical Exam: GENERAL: Alert, awake, and oriented x3. LUNGS: Decreased BS B/L. HEART: S1 S2 Regular. ABDOMEN: Benign. EXTREMITIES: Bilateral [id number] amputation noted. NEURO: No changes. Objective Last 24 Hour Vital Signs Date Time Temp Pulse Resp B/P (MAP) Pulse Ox O2 Delivery O2 Flow Rate FiO2 06/26/20 13:30 97.6 06/26/20 12:00 97.6 68 20 104/54 (71) 98 06/26/20 09:00 Room Air 06/26/20 08:00 97.5 67 20 101/50 (67) 94 06/26/20 07:05 97.8 06/26/20 04:00 97.8 66 20 105/60 (75) 94 06/26/20 00:00 97.8 74 20 100/54 (69) 94 06/25/20 21:00 Room Air 06/25/20 20:00 97.7 81 20 105/59 (74) 96 06/25/20 16:00 97.2 81 20 102/59 (73) 96 Intake and Output 06/25/20 06/26/20 19:00 07:00 Intake Total 360 ml Output Total 550 ml 400 ml Balance -190 ml -400 ml Intake Oral 360 ml Output Urine Total 550 ml 400 ml # Voids 1 # Bowel Movements 1 Height (Feet): 5 Height (Inches): 7.00 Weight (Pounds): 150 Assessment/Plan Assessment/Plan: (1) B/L BKA (2) B/L stump pain (3) s/p stump revision (4) Phantom limb pain The patient will be continued on Dilaudid. The patient was discussed with Dr. Velasquez and Dr. Velasquez concurred. Hiram Griffin Jun 26, 2020 14:27
[2020-06-26] MEDS ORDERED: HYDROmorphone 2mg tab ORAL PRN (14:31)
--- NOTE | 2020-06-26 14:54 | Infectious Diseases Prog Note ---
Assessment/Plan Assessment/Plan ASSESSMENT AND PLAN: 1. esbl e.coli uti, proteus uti, morganella uti, complicated uti, urinary symptoms, mrsa colonization - change to meropenem x 5-7 days - monitor clinically/urinary symptoms - monitor labs - d/w pharmacy about meropenem dosing with patient renal function - d/w RN about antibiotics - d/w patient 2. MRSA colonization. 3. The patient is status post revision of the right BKA protruding stump for right knee. 4. Hypothyroidism. Continue levothyroxine. 5. No history of diabetes and hypertension. 6. Peripheral vascular disease and bilateral BKA. 7. Melanoma in remission. 8. History of wound dehiscence and debridement. 9. History of BPH. 10. Anemia. 11. History of UTI. 12. Thyroid supplementation for hypothyroidism. 13. History of sacral wound. 14. Wound care protocol. 15. History of thrombocytopenia. 16. No known drug allergies. 17. Social history is negative for smoking, alcohol, and drug abuse. 18. Family history is noncontributory. 19. MAR is noted. 20. Case was discussed with RN. 21. Case was discussed with Dr. Preciado and also with the patient. Subjective Constitutional: Denies: fever HEENT: Denies: congestion Respiratory: Denies: shortness of breath Cardiovascular: Denies: chest pain Gastrointestinal/Abdominal: Denies: nausea, diarrhea Genitourinary: Reports: dysuria, frequency Neurologic: Denies: headache Psychiatric: Denies: depression Skin: Denies: rash Hematologic: Denies: bleeding Musculoskeletal: Denies: pain Allergies: Coded Allergies: No Known Allergies (Unverified , 01/04/17) Objective Last 24 Hour Vital Signs Date Time Temp Pulse Resp B/P (MAP) Pulse Ox O2 Delivery O2 Flow Rate FiO2 06/26/20 13:30 97.6 06/26/20 12:00 97.6 68 20 104/54 (71) 98 06/26/20 09:00 Room Air 06/26/20 08:00 97.5 67 20 101/50 (67) 94 06/26/20 07:05 97.8 06/26/20 04:00 97.8 66 20 105/60 (75) 94 06/26/20 00:00 97.8 74 20 100/54 (69) 94 06/25/20 21:00 Room Air 06/25/20 20:00 97.7 81 20 105/59 (74) 96 06/25/20 16:00 97.2 81 20 102/59 (73) 96 Height (Feet): 5 Height (Inches): 7.00 Weight (Pounds): 150 General Appearance: no acute distress HEENT: normocephalic, atraumatic, anicteric, mucous membranes moist Respiratory/Chest: lungs clear, normal breath sounds, no respiratory distress, no accessory muscle use Cardiovascular: normal peripheral pulses, normal rate, regular rhythm, no gallop/murmur Abdomen: normal bowel sounds, soft, non tender, no organomegaly, non distended Genitourinary: other - no plascencia, no cva pain Extremities: other - bilateral leg bka, right stump covered, left stump c/d Skin: no rash Neurologic/Psychiatric: leaf binner II-XII grossly normal, alert, oriented x 3, responsive Lymphatic: no neck adenopathy Musculoskeletal: no effusion Procedure: XRAY Chest 2v Indication: Cough Technique: PA and lateral views of the chest Comparison: 05/06/2020 Findings: Heart size and mediastinal contours within normal limits and stable compared to the prior exam. There is no focal airspace consolidation. No pleural effusion, pneumothorax or radiographic evidence to suggest pulmonary edema. There is unchanged elevation of the left hemidiaphragm which is similar compared to the prior exam. Aorta is ectatic and tortuous. Tunneled central venous catheter again noted with the tip in the region of the upper SVC. There are degenerative changes in the spine. No acute osseous abnormality. IMPRESSION: No radiographic evidence of acute cardiopulmonary disease. Indwelling right transjugular tunneled central venous catheter Microbiology Date/Time Source Procedure Growth Status 06/24/20 21:00 Urine,Clean Catch Urine Culture - Preliminary Escherichia Coli - Esbl Proteus Mirabilis Resulted 06/18/20 06:15 Nasal Nares MRSA Culture - Final Staphylococcus Aureus - Mrsa Complete Microbiology Date/Time Source Procedure Growth Status 06/24/20 21:00 Urine,Clean Catch Urine Culture - Preliminary Escherichia Coli - Esbl Proteus Mirabilis Resulted Labs Test 06/24/20 21:00 06/25/20 06:39 Urine Color Pale yellow Urine Appearance Clear Urine pH 5 (4.5-8.0) Urine Specific [place] 1.015 (1.005-1.035) Urine Protein Negative (NEGATIVE) Urine Glucose (UA) Negative (NEGATIVE) Urine Ketones Negative (NEGATIVE) Urine Blood Negative (NEGATIVE) Urine Nitrite Negative (NEGATIVE) Urine Bilirubin Negative (NEGATIVE) Urine Urobilinogen Normal MG/DL (0.0-1.0) Urine Leukocyte Esterase 1+ (NEGATIVE) Urine RBC 0-2 /HPF (0 - 0) Urine WBC 20-30 /HPF (0 - 0) Urine Squamous Epithelial Cells Few /LPF (NONE/OCC) Urine Bacteria Moderate /HPF (NONE) White Blood Count 4.2 K/UL (4.8-10.8) Red Blood Count 3.60 M/UL (4.70-6.10) Hemoglobin 10.8 G/DL (14.2-18.0) Hematocrit 32.4 % (42.0-52.0) Mean Corpuscular Volume 90 FL (80-99) Mean Corpuscular Hemoglobin 30.0 PG (27.0-31.0) Mean Corpuscular Hemoglobin Concent 33.3 G/DL (32.0-36.0) Red Cell Distribution Width 14.1 % (11.6-14.8) Platelet Count 131 K/UL (150-450) Mean Platelet Volume 8.8 FL (6.5-10.1) Neutrophils (%) (Auto) 51.7 % (45.0-75.0) Lymphocytes (%) (Auto) 31.7 % (20.0-45.0) Monocytes (%) (Auto) 9.0 % (1.0-10.0) Eosinophils (%) (Auto) 6.4 % (0.0-3.0) Basophils (%) (Auto) 1.2 % (0.0-2.0) Sodium Level 141 MMOL/L (136-145) Potassium Level 4.2 MMOL/L (3.5-5.1) Chloride Level 106 MMOL/L (98-107) Carbon Dioxide Level 28 MMOL/L (21-32) Anion Gap 8 mmol/L (5-15) Blood Urea Nitrogen 32 mg/dL (7-18) Creatinine 1.2 MG/DL (0.55-1.30) Estimat Glomerular Filtration Rate 57.4 mL/min (>60) Glucose Level 104 MG/DL (74-106) Calcium Level 9.1 MG/DL (8.5-10.1) Total Bilirubin 0.5 MG/DL (0.2-1.0) Aspartate Amino Transf (AST/SGOT) 32 U/L (15-37) Alanine Aminotransferase (ALT/SGPT) 24 U/L (12-78) Alkaline Phosphatase 116 U/L (46-116) Total Protein 6.9 G/DL (6.4-8.2) Albumin 2.7 G/DL (3.4-5.0) Globulin 4.2 g/dL Albumin/Globulin Ratio 0.6 (1.0-2.7) Current Medications Medications (Trade) Dose Ordered Sig/Trever Route PRN Reason Start Time Stop Time Status Last Admin Dose Admin Chlorhexidine Gluconate (Sammie-Hex 2%) 1 applic DAILY@1999 TOPIC 06/21/20 20:00 09/19/20 19:59 06/25/20 20:51 Heparin Sodium (Porcine) (Heparin 5000 units/ml) 5,000 units EVERY 12 HOURS SUBQ 06/19/20 21:00 08/03/20 20:59 06/25/20 09:02 Hydromorphone HCl (Dilaudid) 2 mg Q4H PRN ORAL Severe Pain (Pain Scale 7-10) 06/26/20 14:31 07/03/20 14:30 Levothyroxine Sodium (Synthroid) 75 mcg ACBREAKFAST ORAL 06/20/20 06:30 07/20/20 06:29 06/26/20 06:30 Levothyroxine Sodium (Synthroid) 100 mcg BEFORE BREAKFAST ORAL 06/20/20 06:30 07/20/20 06:29 06/26/20 06:30 Linaclotide (Linzess) 290 mcg BEFORE BREAKFAST ORAL 06/21/20 06:30 09/19/20 06:29 06/26/20 06:30 Mirtazapine (Remeron) 15 mg BEDTIME ORAL 06/18/20 21:00 09/16/20 20:59 06/25/20 20:51 Celine Yi MD Jun 26, 2020 14:54
[2020-06-26] MEDS ORDERED: LEVOTHYROXINE75 MCG ORAL (15:03)
[2020-06-26] MEDS ORDERED: MEROPENEM500 MG IV (15:06)
[2020-06-26] MEDS ORDERED: [UNRECOGNIZED DRUG - OTHER] (15:19)
[2020-06-26] MEDS ORDERED: hydromorphone PO (15:21)
[2020-06-26 16:00] VITALS: BP 105/59
--- NOTE | 2020-06-26 16:20 | NUR ---
NURSE NOTES: Pt in stable condition. Called [facility] and report was given to Muñoz. Pt clean and dry. Meds recon done. All belongings were accounted for. Money in security was picked up by [employer]. Pt counted money and signed the security form. The form filed in the chart. Pt to keep PICC line for IV ABX therapy. Ambulance personnel came to the unit and report and discharge packet given to them. Pt was transferred to SNF via gurney.
--- NOTE | 2020-06-26 21:57 | General Progress Note ---
Subjective Allergies: Coded Allergies: No Known Allergies (Unverified , 01/04/17) Subjective Patient seen this am denies abd pain tolerating PO Objective Last 24 Hour Vital Signs Date Time Temp Pulse Resp B/P (MAP) Pulse Ox O2 Delivery O2 Flow Rate FiO2 06/26/20 16:00 97.7 72 20 105/59 (74) 96 06/26/20 13:30 97.6 06/26/20 12:00 97.6 68 20 104/54 (71) 98 06/26/20 09:00 Room Air 06/26/20 08:00 97.5 67 20 101/50 (67) 94 06/26/20 07:05 97.8 06/26/20 04:00 97.8 66 20 105/60 (75) 94 06/26/20 00:00 97.8 74 20 100/54 (69) 94 Intake and Output 06/25/20 06/26/20 19:00 07:00 Intake Total 360 ml Output Total 550 ml 400 ml Balance -190 ml -400 ml Intake Oral 360 ml Output Urine Total 550 ml 400 ml # Voids 1 # Bowel Movements 1 Height (Feet): 5 Height (Inches): 7.00 Weight (Pounds): 150 Objective WDWN NCAT supple CTA RR abd soft ND ext (+) b/l amputation neuro non focal Assessment/Plan Assessment/Plan: Assessment/Plan Problem List: (1) S/P BKA (below knee amputation) ICD Codes: Z89.519 - Status post below knee amputation SNOMED: 155585506 (2) Anemia ICD Codes: D64.9 - Anemia, unspecified SNOMED: 970249386 (3) Hypothyroid ICD Codes: E03.9 - Hypothyroid SNOMED: 59250656 (4) Hypokalemia ICD Codes: E87.6 - Hypokalemia SNOMED: 42260748 (5) Stump injury ICD Codes: T14.8 - Other injury of unspecified body region SNOMED: 744444723 Assessment/Plan: no N/V no abd pain anemia work up reviewed linzess colace and miralax prn abx per ID post op care outpatient f/u Shameka Cash MD Jun 26, 2020 21:57
--- NOTE | 2020-06-30 10:22 | Discharge Summary ---
Discharge Summary Discharge Summary _ Date of admission: 06/18/2020 Date of discharge: 06/26/[address] Feldman History of Present Illness and Brief Hospital Course Mr. Cheung is an 84-year-old male with past medical history of BPH, bilateral below-knee amputation, thrombocytopenia, and hypothyroidism, who presented to [facility] for a scheduled surgery. Patient had right knee pain secondary to protruding stump. Because of the protruding right knee stump, patient needed a revision to avoid a right above-knee amputation and decrease in ambulation. Patient underwent revision of below-knee amputation. Patient tolerated the procedure well without complications. Patient went to recovery room in stable condition. The details of the surgery can be found in the operative note by Dr. Feldman. Patient also had urinalysis findings consistent with UTI. Follow-up urine culture had ESBL Proteus that was sensitive to Levaquin, meropenem, and Zosyn. Patient was continued on Levaquin given that patient was not critically sick. Patient was monitored for dysuria and frequency. Patient's pain was well controlled. Patient began tolerating diet. Patient was medically stable for discharge and was discharged to a SNF on 06/26/2020. Consultants: Infectious disease Dr. Yi Pain management JAMES Vasquez Cardiology Dr. Preciado Discharge Condition Stable Discharge Activity As tolerated Discharge Diet Regular Final diagnoses Right knee lateral bone stump pain, s/p revision Postop nausea and vomiting History of BPH History of bilateral BKA UTI Hypothyroidism Hypokalemia Phantom limb pain I have been assigned to dictate discharge summary for this account. I was not involved in the patient's management Shahab Martinez Jun 30, 2020 10:22
--- NOTE | 2020-06-30 13:44 | Cardiology Report ---
APPROVED REPORT EKG Measurement Heart [id number] <Conclusion> Sinus tachycardia Otherwise normal ECG
== END 2020-06-26 16:24 | DRG 475 ==
LOC: SDSOVERFLO 06-18 05:43 → 4E 06-18 10:50 → 2E 06-23 15:25
PROC: 0Y6H0Z3 Detachment at Right Lower Leg, Low, Open Approach (ICD-10-PCS; principal; 2020-06-18 07:30)
DX: T87.89 Other complications of amputation stump (principal); N39.0 Urinary tract infection, site not specified; Z16.12 Extended spectrum beta lactamase (ESBL) resistance; Y83.5 Amputation of limb(s) as the cause of abnormal reaction of the patient, or of later complication, without mention of misadventure at the time of the procedure; G54.6 Phantom limb syndrome with pain; G89.18 Other acute postprocedural pain; Z89.512 Acquired absence of left leg below knee; Z89.511 Acquired absence of right leg below knee; E03.9 Hypothyroidism, unspecified; N40.0 Benign prostatic hyperplasia without lower urinary tract symptoms; I73.9 Peripheral vascular disease, unspecified; E87.6 Hypokalemia; R11.2 Nausea with vomiting, unspecified; Z22.322 Carrier or suspected carrier of Methicillin resistant Staphylococcus aureus; B96.20 Unspecified Escherichia coli [E. coli] as the cause of diseases classified elsewhere
CPT/HCPCS: 36415; 71046; 80048; 80053; 81001; 81003; 82150; 82248; 82270; 83540; 83550; 83690; 84443; 85025; 85610; 85730; 87081; 87086; 87181; 93005; 94003; 94150